=== PATIENT | female | born 1945 | race Caucasian/White ===

== ENCOUNTER 2017-06-18 21:37 | Inpatient (IN) | payer MEDICARE, OTHER ==
[~2017-06-18] VITALS: Ht 160 cm; Wt 67.7 kg
[2017-06-18 23:00] LABS: ABNORMAL IP MESSAGE 1; HEMATOCRIT 33.9 % (37.0-47.0); HEMOGLOBIN 10.4 g/dl (12.0-16.0); MEAN CORPUSCULAR HEMOGLOBIN 23.8 pg (29.0-33.0); MEAN CORPUSCULAR HGB CONC 30.7 g/dl (32.0-37.0); MEAN CORPUSCULAR VOLUME 77.6 fl (82.0-101.0); PLATELET COUNT 301 10^3/UL (140-415); RED BLOOD COUNT 4.37 10^6/ul (4.20-5.40); RED CELL DISTRIBUTION WIDTH 19.8 % (11.5-14.5); WHITE BLOOD COUNT 17.2 10^3/ul (4.8-10.8)
[2017-06-18 23:21] LABS: INR 1.88; PROTIME 21.8 Sec (12.2-14.2); PT RATIO 1.7
[2017-06-18 23:22] LABS: PARTIAL THROMBOPLASTIN TIME 30.9 Sec (25.0-35.0)
[2017-06-18 23:24] LABS: ALBUMIN 3.6 g/dl (3.3-4.9); ALBUMIN/GLOBULIN RATIO 1.02; CALCIUM 8.5 mg/dl (8.4-10.2); CREATININE 0.48 mg/dl (0.44-1.00); POTASSIUM 3.6 mmol/L (3.5-5.1); TOTAL PROTEIN 7.1 g/dl (6.1-8.1)
[2017-06-18 23:36] LABS: TROPONIN-I 0.039 ng/ml (0.00-0.12)
[2017-06-18 23:38] LABS: AADO2 Arterial 148.5 mmHg (7.0-24.0); Allen Test ACCEPTAB; Arterial Base Excess 6.5 mmol/L (-3.0-3); Arterial COHb 0.3 % (0.0-3.0); Arterial Fraction of Oxyhgb 98.2 % (93.0-99.0); Arterial MetHb 0.5 % (0.0-1.5); Arterial Total Hemglobin 11.3 g/dl (12.0-18.0); Blood Gas IEPAP 20/5; MODE MASK - BIPAP
[2017-06-19] VITALS (21 sets, daily range): BP systolic 115–198; BP diastolic 52–88; PULSE 86–101; RESP 16–21; TEMP 98.9; Ht 160 cm; Wt 67.7 kg
--- NOTE | 2017-06-19 00:14 | RADRPT ---
PROCEDURE: XR Chest. CLINICAL INDICATION: Shortness of breath. TECHNIQUE: Portable AP upright view of the chest was obtained. COMPARISON: None available. FINDINGS: The cardiomediastinal silhouette is within upper normal limits. Elevation of the right hemidiaphrag m is present with mild prominence of the pulmonary interstitium throughout likely chronic interstiti al change. There is no evidence of focal alveolar infiltrate. There is no evidence for pleural eff usion, pneumothorax or pulmonary vascular congestion. Diffuse demineralization is seen without evid ence of acute osseous abnormality. Calcification is visible within the aorta RPTAT:HJJR IMPRESSION: 1. Chronic appearing diffuse interstitial changes of the lung parenchyma with some elevation of the right hemidiaphragm. 2. Aortic atherosclerosis is present. Physician Fede Date Time Electronically viewed and signed by Physician Fede on 06/19/2017 00:14 JR/
[2017-06-19] MEDS ORDERED: ACETAMINOPHEN 500 MG TAB PO STA (00:59)
[2017-06-19 01:43] LABS: ANISOCYTOSIS 1+ (0-0); EOSINOPHILS # 0.2 10^3/ul (0.0-0.5); EOSINOPHILS % (M) 1 % (0.0-7.0); LYMPHOCYTES # 0.5 10^3/ul (0.8-2.9); MONOCYTE # 0.2 10^3/ul (0.3-0.9); MONOCYTES % (M) 1 % (0-11)
--- NOTE | 2017-06-19 03:20 | ERA ---
ER Documentation Chief Complaint Date/Time DATE: 06/19/17 TIME: 03:16 Chief Complaint from facility, SOB, rhonchi, febrile, tachy cardic HPI This is a 71-year-old female brought in from custodial facility shortness breath rhonchi and fever. Patient is poor historian at baseline. History per [facility]. History of chronic respiratory failure ROS All systems reviewed and are negative except as per history of present illness. PMhx/Soc History of Surgery: Yes Hx Neurological Disorder: Yes (CVA) Hx Respiratory Disorders: Yes (Chronic Resp Failure) Hx Cardiac Disorders: Yes Hx Psychiatric Problems: No Hx Miscellaneous Medical Probl: Yes Hx Alcohol Use: No Hx Substance Use: No Hx Tobacco Use: No Smoking Status: Never smoker Physical Exam Vitals Vital Signs Date Time Temp Pulse Resp B/P Pulse Ox O2 Delivery O2 Flow Rate FiO2 06/19/17 02:29 98.9 98 16 136/66 100 BIPAP 06/19/17 01:10 102 100 40 06/19/17 00:30 101.0 102 18 141/62 100 BIPAP 06/18/17 23:42 107 100 50 06/18/17 22:49 112 100 50 06/18/17 22:32 Non Rebreather 15 06/18/17 22:32 Non Rebreather 15.0 06/18/17 22:21 100.3 121 19 200/98 95 Physical Exam Const: [] Head: Atraumatic Eyes: Normal Conjunctiva ENT: Normal External Ears, Nose and Mouth. Neck: Full range of motion..~ No meningismus. Resp: Clear to auscultation bilaterally Cardio: Regular rate and rhythm, no murmurs Abd: Soft, non tender, non distended. Normal bowel sounds Skin: No petechiae or rashes Back: No midline or flank tenderness Ext: No cyanosis, or edema Neur: Awake and alert Psych: Normal Mood and Affect Result Diagram: 06/18/17221906/18/172219 Results 24 hrs Laboratory Tests Test 06/18/17 22:20 06/18/17 22:36 06/19/17 00:35 White Blood Count 17.210^3/ul Red Blood Count 4.3710^6/ul Hemoglobin 10.4g/dl Hematocrit 33.9% Mean Corpuscular Volume 77.6fl Mean Corpuscular Hemoglobin 23.8pg Mean Corpuscular Hemoglobin Concent 30.7g/dl Red Cell Distribution Width 19.8% Platelet Count 70308^3/UL Mean Platelet Volume 12.0fl Neutrophils % % Segmented Neutrophils % (Manual) 73% Band Neutrophils % (Manual) 22% Lymphocytes % % Lymphocytes % (Manual) 3% Monocytes % % Monocytes % (Manual) 1% Eosinophils % % Eosinophils % (Manual) 1% Basophils % % Nucleated Red Blood Cells % 0.0/100WBC Neutrophils # (Manual) 13.210^3/ul Band Neutrophils # 3.710^3/ul Absolute Lymphocytes (Manual) 0.510^3/ul Lymphocytes # 0.510^3/ul Monocytes # 0.210^3/ul Absolute Monocytes (Manual) 0.110^3/ul Eosinophils # 0.210^3/ul Basophils # 10^3/ul Nucleated Red Blood Cells # 10^3/ul Anisocytosis 1+ Prothrombin Time 21.8Sec Prothrombin Time Ratio 1.7 INR International Normalized Ratio 1.88 Activated Partial Thromboplast Time 30.9Sec Sodium Level 137mmol/L Potassium Level 3.6mmol/L Chloride Level 95mmol/L Carbon Dioxide Level 33mmol/L Anion Gap 13 Blood Urea Nitrogen 25mg/dl Creatinine 0.48mg/dl Glucose Level 377mg/dl Lactic Acid Level 1.6mmol/L 1.7mmol/L Calcium Level 8.5mg/dl Total Bilirubin 0.0mg/dl Direct Bilirubin 0.00mg/dl Indirect Bilirubin 0.0mg/dl Aspartate Amino Transf (AST/SGOT) 21IU/L Alanine Aminotransferase (ALT/SGPT) 23IU/L Alkaline Phosphatase 207IU/L Troponin I 0.039ng/ml Total Protein 7.1g/dl Albumin 3.6g/dl Globulin 3.50g/dl Albumin/Globulin Ratio 1.02 Blood Gas Specimen Source Blood arterial Arterial Blood Date Drawn 06/18/2017 11:32:26 PM Arterial Blood pH (Temp corrected) 7.423 Arterial Blood pCO2 (Temp correct) 50.1mmhg Arterial Blood pO2 (Temp corrected) 151.6mmHG Arterial Blood HCO3 32.0mmol/L Arterial Blood Base Excess 6.5mmol/L Arterial Blood Oxygen Saturation 99.0mmHG Girish Test ACCEPTAB Arterial Blood Gas Puncture Site Right Radial Arterial Blood Carboxyhemoglobin 0.3% Arterial Blood Methemoglobin 0.5% Blood Gas A-a O2 Differential 148.5mmHg Oxyhemoglobin Percent 98.2% Total Hemoglobin 11.3g/dl Blood Gas Temperature 37.0C Blood Gas Respiration Rate 16.0 Blood Gas Actual Respiration Rate 20 Blood Gas Modality MASK - BIPAP FiO2 50.0% Blood Gas Inspiratory Time 1.0 Blood Gas IPAP/EPAP Ratio 20/5 Blood Gas Notified Whom BR Blood Gas Notified Time 06/18/2017 11:38:03 PM Current Medications Medications (Trade) Dose Ordered Sig/Leah Route PRN Reason Start Time Stop Time Status Last Admin Dose Admin Acetaminophen (Tylenol Tab) 1,000 mg ONCE STAT PO 06/19/17 00:59 06/19/17 01:00 DC 06/19/17 01:06 Procedures/MDM EKG: Rate/Rhythm: Normal Sinus Rhythm QRS, ST, T-waves: No changes consistent w/ acute ischemia Impression: No evidence of ischemia or arrhythmia Chest X-ray 1V Interpreted by me: Soft Tissue: No acute abnormalities Bones: No acute abnormalities Mediastinum/Cardiac Silhouette/Lungs: No acute abnormalities Medical decision-makin-year-old female with acute on chronic respiratory failure placed on BiPAP. Patient will be admitted to telemetry to hospitalist. Critical Care: Time: 45 minutes Treatments/Evaluations: Close monitoring and treatment of unstable vital signs, cardiorespiratory, and neurologic status, while maintaining tight balance of fluid, respiratory, and cardiac interventions. Departure Diagnosis: Primary Impression: Respiratory failure Qualified Code: J96.20 - Acute on chronic respiratory failure, unspecified whether with hypoxia or hypercapnia Condition: Serious JOE WILSON Jun 19, 2017 03:20
[2017-06-19] MEDS ORDERED: MAGN400O4 GTB (05:41)
[2017-06-19] MEDS ORDERED: ZINC220T GTB (05:41)
[2017-06-19] MEDS ORDERED: TRAM50TA2 GTB ×2 (05:41)
[2017-06-19] MEDS ORDERED: ACET-2047 PO (05:41)
[2017-06-19] MEDS ORDERED: BISA-57 PO (05:41)
[2017-06-19] MEDS ORDERED: CLOP75TA27 GTB (05:41)
[2017-06-19] MEDS ORDERED: CEPH500C GTB (05:41)
[2017-06-19] MEDS ORDERED: IPRA3AMP INHALATION (05:41)
[2017-06-19] MEDS ORDERED: CLON-379 GTB (05:41)
[2017-06-19] MEDS ORDERED: LEVE500S8 GTB (05:41)
[2017-06-19] MEDS ORDERED: LOSA100T47 GTB (05:41)
[2017-06-19] MEDS ORDERED: ASCO500C7 GTB (05:41)
[2017-06-19] MEDS ORDERED: INSU100I27 SQ (05:41)
[2017-06-19] MEDS ORDERED: VANCOMYCIN IV PER PHARMACY XX SCH (06:30)
[2017-06-19] MEDS ORDERED: MAGNESIUM HYDROXIDE 30ML CUP GTB PRN (06:30)
[2017-06-19] MEDS ORDERED: ACETAMINOPHEN 325 MG TAB PO PRN (06:30)
--- NOTE | 2017-06-19 06:40 | HP ---
Date/Time of Note Date/Time of Note DATE: 06/19/17 TIME: 06:26 Assessment/Plan VTE Prophylaxis VTE Prophylaxis Intervention: heparin Lines/Catheters IV Catheter Type (from Nrsg): Saline Lock Assessment/Plan Assessment/Plan 1. Hypercarbic and hypoxic respiratory failure -Continue positive pressure ventilation, bronchodilators, steroid -Pulmonary consult -Repeat ABG 2. Sepsis, secondary to left lower extremity cellulitis -IV antibiotic -Follow-up culture results 3. Hypertensive urgency -Adjust antihypertensives as needed for better blood pressure control 4. History of CVA, patient in vegetative kind of state -Continue medications and supportive care 5. Dysphagia, with G-tube for feeding -Continue tube feeding and medications 6. Diabetes with hyperglycemia -Adjust insulin as needed HPI/ROS Admit Date/Time Admit Date/Time Jun 19, 2017 at 03:12 Hx of Present Illness This is a 8-year-old female with a history of CVA, respiratory failure, hypertension, dysphagia with G-tube for feeding who was sent from SNF for shortness of breath. Patient is nonverbal and does not follow commands and as such information is gathered from chart review and from the ER physician. Patient was placed on BiPAP while she was in the ER. CXR showed Chronic appearing diffuse interstitial changes of the lung parenchyma with some elevation of the right hemidiaphragm. Patient also has erythema of left lower extremity, which is also warm to touch. She presented with BP of 200/98, temp 100.3. Labs shows WBC of 17,000, glucose 377, bicarb 33 and alk phos 207. ABG shows pH of 7.4, PCO2 50, PO2 151 and bicarb of 32 . PMH/Family/Social Past Medical History CVA Hypertension Respiratory failure Diabetes G-tube . Past Surgical History Past Surgical Hx: other (Tracheostomy, G-tube) Social History Alcohol Use: other (Unknown) Smoking Status: Unknown if ever smoked Drug Use: other (Unknown) Exam/Review of Systems Vital Signs Vitals Vital Signs Date Time Temp Pulse Resp B/P Pulse Ox O2 Delivery O2 Flow Rate FiO2 06/19/17 05:19 98.6 94 17 115/56 98 06/19/17 05:18 35 06/19/17 04:15 BIPAP 06/19/17 04:12 4.0 Exam Constitutional: other (Currently on BiPAP. She opens her eyes spontaneously but does not follow command.) Head: atraumatic, normocephalic Respiratory: diminished breath sounds, wheezing Cardiovascular: other (Tachycardic with regular rhythm) Gastrointestinal: other (G-tube in place), soft Extremities: other (Left lower extremity erythema including thigh and bauman, warmth to touch) Labs Result Diagram: 06/18/17221906/18/17 222 Medications Medications Current Medications Acetaminophen (Tylenol Tab) 650 mg Q4 PRN PO PAIN AND OR ELEVATED TEMP; Start 06/19/17 at 06:30; Status UNV Ascorbic Acid (Vitamin C) 500 mg DAILY GTB ; Start 06/19/17 at 09:00; Status UNV Bisacodyl (Dulcolax) 10 mg DAILY PRN PO CONSTIPATION; Start 06/19/17 at 06:30; Status UNV Clonidine (Catapres) 0.1 mg Q6 PRN GTB ELEVATED BLOOD PRESSURE; Start 06/19/17 at 06:30; Status UNV Clopidogrel Bisulfate (plaVIX) 75 mg DAILY GTB ; Start 06/19/17 at 09:00; Status UNV Albuterol/ Ipratropium (Duoneb) 3 ml Q4 PRN HHN SHORTNESS OF BREATH; Start 06/19 at 06:30; Status UNV Levetiracetam (Keppra Liquid) 500 mg BID GTB ; Start 06/19/17 at 09:00; Status UNV Losartan Potassium (Cozaar) 100 mg QHS GTB ; Start 06/19/17 at 21:00; Status UNV Magnesium Hydroxide (Milk Of Mag) 30 ml DAILY PRN GTB CONSTIPATION; Start at 06:30; Status UNV Tramadol HCl (Ultram) 50 mg Q12 GTB ; Start 06/19/17 at 09:00; Status UNV Zinc Sulfate (Zinc Sulfate) 220 mg DAILY GTB ; Start 06/19/17 at 09:00; Status UNV JOE JIMENES MD Jun 19, 2017 06:36
[2017-06-19] MEDS ORDERED: INSULIN ASPART [NOVOLOG] 3 ML PEN SC SCH (07:55)
[2017-06-19] MEDS ORDERED: BISACODYL (EC) 5 MG TAB PO PRN (08:00)
[2017-06-19] MEDS ORDERED: ALBUTEROL/IPRATROPIUM (NEB) 3 ML AMP HHN PRN (09:00)
[2017-06-19] MEDS: LEVALBUTEROL (NEB) 0.63 MG/3 ML AMP HHN SCH ×4 (09:00→20:30)
[2017-06-19] MEDS: CLOPIDOGREL 75 MG TAB GTB SCH (09:02)
[2017-06-19] MEDS: ZINC SULFATE 220 MG CAP GTB SCH (09:02)
[2017-06-19] MEDS: ASCORBIC ACID 500 MG TAB GTB SCH (09:02)
[2017-06-19] MEDS: LEVETIRACETAM (100 MG/ML) 5ML CUP GTB SCH ×2 (09:02→20:32)
[2017-06-19] MEDS: traMADol 50 MG TAB GTB SCH ×2 (09:24→20:32)
[2017-06-19] MEDS ORDERED: VANCOMYCIN 1.25 GM in SOD CHLORIDE 0.9% 250 ML IVPB SCH (09:30)
--- NOTE | 2017-06-19 10:04 | CONS ---
Date/Time of Note Date/Time of Note DATE: 06/19/17 TIME: 09:58 Assessment/Plan Assessment/Plan Additional Assessment/Plan Chest x-ray was reviewed from yesterday which is showing interstitial prominence. BiPAP settings; 20/5, 30% FiO2. Backup rate of 14. ABG was also reviewed which is showing hypercapnia. Assessment and recommendations; 1. Patient admitted with hypercapnic respiratory failure with leukocytosis. Possibly UTI. 2. Advanced dementia. 3. History of hypertension diabetes and seizure disorder. Continue current treatment. Will obtain a urine analysis. Continue BiPAP at current settings. Also obtain follow-up chest x-ray in 24 hours. Prognosis remains poor. Consultation Date/Type/Reason Admit Date/Time Jun 19, 2017 at 03:12 Date of Consultation: Jun 19, 2017 Type of Consultation: Pulmonary Reason for Consultation Pulmonary consultation requested for evaluation of sepsis and hypercapnic respiratory failure. History of presenting illness; patient is a 71-year-old female who was admitted to the hospital yesterday transferred from alf with complaints of appearing to be short of breath. Upon evaluation further workup was done including an ABG which is revealing hypercapnic respiratory failure without any hypoxemia. Chest x-ray also was done which has been read as essentially unremarkable except for presence of interstitial lung disease. The patient however does have significant leukocytosis and has been started on appropriate broad-spectrum antibiotic coverage. Patient apparently has a history of advanced dementia and by the time I saw her the patient was on BiPAP and was unable to give any history by herself whatsoever. History was obtained from medical records. Past medical history; 1. Patient with history of diabetes 2. Hypertension. 3. Seizure disorder. 4. History of prior tracheostomy with subsequent decannulation. Medications; reviewed. Allergies; none. Family history, social history and occupational histories are not available. Patient however resides in a alf facility. Review of systems; unable to be obtained. General exam; elderly woman, on BiPAP. Essentially unresponsive. Currently in no distress. Past Surgical History Past Surgical Hx: other (Tracheostomy, G-tube) Social History Alcohol Use: other (Unknown) Smoking Status: Unknown if ever smoked Drug Use: other (Unknown) Exam/Review of Systems Vital Signs Vitals Vital Signs Date Time Temp Pulse Resp B/P Pulse Ox O2 Delivery O2 Flow Rate FiO2 06/19/17 09:10 97 98 30 06/19/17 08:08 97.7 16 131/61 06/19/17 04:15 BIPAP 06/19/17 04:12 4.0 Exam HEENT exam; supple neck, patient is on full face BiPAP. Pupils are small. There is a dressing applied over prior tracheostomy which is partially closed. Chest exam; diminished breath sounds throughout. S1-S2 audible, no murmurs. Regular rhythm. Abdomen exam; soft, no organomegaly. Bowel sounds are sluggish. Extremity exam; trace peripheral edema. Mild erythema involving right lower extremity. FACILITY SERVICE MANAGER exam; patient remains unresponsive. Results Result Diagram: 06/18/17221906/18/170 Results 24 hrs Laboratory Tests Test 06/18/17 22:20 06/18/17 22:36 06/19/17 00:35 06/19/17 05:59 White Blood Count 17.2 H Red Blood Count 4.37 Hemoglobin 10.4 L Hematocrit 33.9 L Mean Corpuscular Volume 77.6 L Mean Corpuscular Hemoglobin 23.8 L Mean Corpuscular Hemoglobin Concent 30.7 L Red Cell Distribution Width 19.8 H Platelet Count 301 Mean Platelet Volume 12.0 H Neutrophils % Segmented Neutrophils % (Manual) 73 Band Neutrophils % (Manual) 22 H Lymphocytes % Lymphocytes % (Manual) 3 L Monocytes % Monocytes % (Manual) 1 Eosinophils % Eosinophils % (Manual) 1 Basophils % Nucleated Red Blood Cells % 0.0 Neutrophils # (Manual) 13.2 H Band Neutrophils # 3.7 H Absolute Lymphocytes (Manual) 0.5 L Lymphocytes # 0.5 L Monocytes # 0.2 L Absolute Monocytes (Manual) 0.1 L Eosinophils # 0.2 Basophils # Nucleated Red Blood Cells # Anisocytosis 1+ Prothrombin Time 21.8 H Prothrombin Time Ratio 1.7 INR International Normalized Ratio 1.88 Activated Partial Thromboplast Time 30.9 Sodium Level 137 Potassium Level 3.6 Chloride Level 95 L Carbon Dioxide Level 33 H Anion Gap 13 Blood Urea Nitrogen 25 H Creatinine 0.48 Glucose Level 377 H Lactic Acid Level 1.6 1.7 2.2 *H Calcium Level 8.5 Total Bilirubin 0.0 L Direct Bilirubin 0.00 Indirect Bilirubin 0.0 Aspartate Amino Transf (AST/SGOT) 21 Alanine Aminotransferase (ALT/SGPT) 23 Alkaline Phosphatase 207 H Troponin I 0.039 Total Protein 7.1 Albumin 3.6 Globulin 3.50 H Albumin/Globulin Ratio 1.02 Blood Gas Specimen Source Blood arterial Arterial Blood Date Drawn 06/18/2017 11:32:26 PM Arterial Blood pH (Temp corrected) 7.423 Arterial Blood pCO2 (Temp correct) 50.1 H Arterial Blood pO2 (Temp corrected) 151.6 H Arterial Blood HCO3 32.0 H Arterial Blood Base Excess 6.5 H Arterial Blood Oxygen Saturation 99.0 H Girish Test ACCEPTAB Arterial Blood Gas Puncture Site Right Radial Arterial Blood Carboxyhemoglobin 0.3 Arterial Blood Methemoglobin 0.5 Blood Gas A-a O2 Differential 148.5 H Oxyhemoglobin Percent 98.2 Total Hemoglobin 11.3 L Blood Gas Temperature 37.0 Blood Gas Respiration Rate 16.0 Blood Gas Actual Respiration Rate 20 Blood Gas Modality MASK - BIPAP FiO2 50.0 Blood Gas Inspiratory Time 1.0 Blood Gas IPAP/EPAP Ratio 20/5 Blood Gas Notified Whom BR Blood Gas Notified Time 06/18/2017 11:38:03 PM Test 06/19/17 08:18 Bedside Glucose 340 H Medications Medications Current Medications Acetaminophen (Tylenol Tab) 650 mg Q4 PRN PO PAIN AND OR ELEVATED TEMP; Start 06/19/17 at 06:30 Ascorbic Acid (Vitamin C) 500 mg DAILY GTB Last administered on 06/19/17 09:02 ; Admin Dose 500 MG; Start 06/19/17 at 09:00 Bisacodyl (Dulcolax) 10 mg DAILY PRN PO CONSTIPATION; Start 06/19/17 at 08:00 Clonidine (Catapres) 0.1 mg Q6H PRN GTB SBP ABOVE 160; Start 06/19/17 at 06:30 Clopidogrel Bisulfate (plaVIX) 75 mg DAILY GTB Last administered on 06/19/17 09 :02; Admin Dose 75 MG; Start 06/19/17 at 09:00 Levetiracetam (Keppra Liquid) 500 mg BID GTB Last administered on 06/19/17 09: 02; Admin Dose 500 MG; Start 06/19/17 at 09:00 Losartan Potassium (Cozaar) 100 mg QHS GTB ; Start 06/19/17 at 21:00 Magnesium Hydroxide (Milk Of Mag) 30 ml DAILY PRN GTB CONSTIPATION; Start at 06:30 Tramadol HCl (Ultram) 50 mg Q12 GTB Last administered on 06/19/17 09:24; Admin Dose 50 MG; Start 06/19/17 at 09:00 Zinc Sulfate (Zinc Sulfate) 220 mg DAILY GTB Last administered on 06/19/17 09: 02; Admin Dose 220 MG; Start 06/19/17 at 09:00 Diagnostic Test (Pha) (Accu-Chek) 1 ea 02 XX ; Start 06/20/17 at 02:00 Diagnostic Test (Pha) (Accu-Chek) 1 ea 02 XX ; Start 06/20/17 at 02:00 Insulin Aspart NOVOLOG *MODERATE* ALGORI... Q6 SC ; Start 06/19/17 at 08:00 Vancomycin HCl/ Sodium Chloride (Vancocin/NS) 250 ml @ 83.333 mls/ hr 0930 IVPB ; Start 06/19/17 at 09:30; Stop 06/19/17 at 16:00 ADRIANA TOVAR Jun 19, 2017 10:04
[2017-06-19] MEDS: INSULIN DETEMIR [LEVEMIR] 3ML CART SC SCH (10:51)
[2017-06-19] MEDS: INSULIN ASPART [NOVOLOG] 3 ML PEN SC SCH ×6 (10:52→17:51)
[2017-06-19 14:58] LABS: ADD UMIC YES; UR ASCORBIC ACID 40 mg/dL (NEGATIVE); UR BACTERIA FEW /HPF (NONE SEEN); UR BILIRUBIN (Dip) NEGATIVE (NEGATIVE); UR BLOOD (Dip) 1+ mg/dL (NEGATIVE); UR BUDDING YEAST MANY /HPF (NONE SEEN); UR CLARITY CLOUDY (CLEAR); UR COLOR YELLOW (YELLOW); UR GLUCOSE (Dip) 3+ mg/dL (NEGATIVE); UR KETONES (Dip) NEGATIVE (NEGATIVE); UR LEUKOCYTE ESTERASE (Dip) 3+ Leu/ul (NEGATIVE); UR NITRITE (Dip) NEGATIVE (NEGATIVE); UR NONSQUAMOUS EPITHELIAL CELL 2 /HPF (NONE SEEN); UR RBC 112 /HPF (0-5); UR SPECIFIC GRAVITY (Dip) 1.023 (1.003-1.030); UR TOTAL PROTEIN (Dip) 2+ mg/dl (NEGATIVE); UR UROBILINOGEN (Dip) NEGATIVE (NEGATIVE); UR WBC CLUMPS MANY /HPF (NONE SEEN)
[2017-06-19] MEDS ORDERED: PENDING SANTYL ORDER FOR WOUND CARE XX PRN (16:00)
[2017-06-19] MEDS: VANCOMYCIN 500MG/NS (PMX) 100 ML IVPB SCH (18:12)
[2017-06-19] MEDS: LOSARTAN 50 MG TAB GTB SCH (20:35)
[2017-06-20] VITALS (22 sets, daily range): BP systolic 125–153; BP diastolic 58–70; PULSE 81–95; RESP 16–20
[2017-06-20] MEDS: LEVALBUTEROL (NEB) 0.63 MG/3 ML AMP HHN SCH ×6 (01:39→21:56)
[2017-06-20] MEDS: ACCU-CHEK XX SCH (02:00)
[2017-06-20] MEDS ORDERED: ACCU-CHEK XX SCH ×2 (02:00)
[2017-06-20] MEDS: INSULIN ASPART [NOVOLOG] 3 ML PEN SC SCH ×6 (02:01→18:08)
[2017-06-20] MEDS ORDERED: GLUCAGON 1 MG INJ IM PRN (03:00)
[2017-06-20] MEDS ORDERED: GLUCOSE GEL 15 GRAM TUBE BUCCAL PRN (03:00)
[2017-06-20] MEDS ORDERED: DEXTROSE 50% 50 ML SYRINGE IV PRN ×2 (03:00)
[2017-06-20] MEDS ORDERED: GLUCOSE GEL 15 GRAM TUBE PO PRN ×2 (03:00)
[2017-06-20] MEDS ORDERED: ONDANSETRON 4 MG INJ IV PRN (05:00)
[2017-06-20] MEDS ORDERED: COLLAGENASE 30 GM TUBE TOP PRN (05:00)
[2017-06-20] MEDS: VANCOMYCIN 500MG/NS (PMX) 100 ML IVPB SCH ×2 (05:18→18:02)
[2017-06-20] MEDS: COLLAGENASE 30 GM TUBE TOP SCH ×2 (06:00→20:36)
[2017-06-20] MEDS ORDERED: INSULIN ASPART [NOVOLOG] 3 ML PEN SC SCH (06:00)
[2017-06-20 07:52] LABS: HEMATOCRIT 30.5 % (37.0-47.0); HEMOGLOBIN 9.2 g/dl (12.0-16.0); MEAN CORPUSCULAR HEMOGLOBIN 23.6 pg (29.0-33.0); MEAN CORPUSCULAR HGB CONC 30.2 g/dl (32.0-37.0); MEAN CORPUSCULAR VOLUME 78.2 fl (82.0-101.0); MEAN PLATELET VOLUME 11.8 fl (7.4-10.4); PLATELET COUNT 268 10^3/UL (140-415); RED CELL DISTRIBUTION WIDTH 19.5 % (11.5-14.5); WHITE BLOOD COUNT 8.7 10^3/ul (4.8-10.8)
[2017-06-20 08:16] LABS: ALBUMIN 3.2 g/dl (3.3-4.9); CREATININE 0.44 mg/dl (0.44-1.00); POTASSIUM 3.6 mmol/L (3.5-5.1); TOTAL PROTEIN 6.4 g/dl (6.1-8.1)
--- NOTE | 2017-06-20 08:24 | RADRPT ---
PROCEDURE: XR Chest. CLINICAL INDICATION: sepsis TECHNIQUE: Single frontal view of the chest was obtained. COMPARISON: Chest x-ray from 06/18/2017 FINDINGS: There are stable low lung volumes. There is mild cardiomegaly. There is stable mild prominence of interstitial markings, possibly due to a combination of vascular crowding and chronic / senescent changes.. There is no significant pleural effusion or pneumothorax. IMPRESSION: No significant interval change. RPTAT: EE Physician Jonah Date Time Electronically viewed and signed by Kendall Garcia Physician on 06/20/2017 08:24 RA/
[2017-06-20] MEDS: ZINC SULFATE 220 MG CAP GTB SCH (09:18)
[2017-06-20] MEDS: CLOPIDOGREL 75 MG TAB GTB SCH (09:18)
[2017-06-20] MEDS: ASCORBIC ACID 500 MG TAB GTB SCH (09:19)
[2017-06-20] MEDS: traMADol 50 MG TAB GTB SCH ×2 (09:19→20:34)
[2017-06-20] MEDS: LEVETIRACETAM (100 MG/ML) 5ML CUP GTB SCH ×2 (09:19→20:34)
[2017-06-20] MEDS: INSULIN DETEMIR [LEVEMIR] 3ML CART SC SCH (09:37)
[2017-06-20] MEDS: MUPIROCIN 2% 22 GM OINT TOP SCH ×2 (11:18→20:35)
--- NOTE | 2017-06-20 11:36 | PN ---
Date/Time of Note Date/Time of Note DATE: 06/20/17 TIME: 11:34 Assessment/Plan VTE Prophylaxis VTE Prophylaxis Intervention: LMWH Lines/Catheters IV Catheter Type (from [facility]): Saline Lock Urinary Cath still in place: Yes Reason Cath still needed: other (indicate) (vegetative) Assessment/Plan Assessment/Plan 1. Hypercarbic and hypoxic respiratory failure: remains on bipap for now per pulm 2. Sepsis 2/2 bacteremia, UTI, charlette cellulitis: ?improving 3. Staph bacteremia 4. Multiorganism UTI 5. Charlette LE Cellulitis 6. Hypertensive urgency: improved but still with suboptimal control 7. History of CVA, patient in vegetative kind of state with a hx advanced dementia 8. Dysphagia, with G-tube for feeding 9. Diabetes with hyperglycemia, A1C 9.0 10. Seizure disorder. 11. History of prior tracheostomy with subsequent decannulation. PLAN: Continue bipap / planned for NC trial tomorrow / Add low dose lasix Continue abx Palliative care consult Iron replacement therapy Increase Lantus and add metformin Continue all other supportive care Appreciate all consults Prophylaxis : Subjective 24 Hr Interval Summary Free Text/Dictation spoke at [facility] with Patient has been non verbal and bedbound since CVA about 1 1/2 yrs ago Subjective hx not possible: pt non-verbal Exam/Review of Systems Vital Signs Vitals Vital Signs Date Time Temp Pulse Resp B/P Pulse Ox O2 Delivery O2 Flow Rate FiO2 06/20/17 09:15 93 98 30 06/20/17 07:10 20 06/20/17 06:52 99.0 143/63 06/19/17 04:15 BIPAP 06/19/17 04:12 4.0 Intake and Output 06/19/17 06/19/17 06/20/17 14:59 22:59 06:59 Intake Total 250 ml 1250 ml 1375 ml Output Total 200 ml 750 ml Balance 250 ml 1050 ml 625 ml Exam Constitutional: other (Currently on BiPAP. She opens her eyes spontaneously but does not follow command.) Head: atraumatic, normocephalic Respiratory: diminished breath sounds, wheezing Cardiovascular: other (Tachycardic with regular rhythm) Gastrointestinal: other (G-tube in place), soft Extremities: other (Left lower extremity erythema including thigh and bauman, warmth to touch) Results Result Diagram: 06/20/17 0713 06/20/17 0713 Results 24 hrs Laboratory Tests Test 06/19/17 12:00 06/19/17 14:48 06/19/17 17:48 06/20/17 01:46 Urine Color YELLOW Urine Clarity CLOUDY A Urine pH 6.0 Urine Specific Clune 1.023 Urine Ketones NEGATIVE Urine Nitrite NEGATIVE Urine Bilirubin NEGATIVE Urine Urobilinogen NEGATIVE Urine Leukocyte Esterase 3+ H Urine Microscopic RBC 112 H Urine Microscopic WBC > 182 H Urine Bacteria FEW A Urine Yeast (Budding) MANY A Urine Hemoglobin 1+ H Urine Glucose 3+ H Urine Total Protein 2+ H Bedside Glucose 290 H 365 H 303 H Test 06/20/17 05:11 06/20/17 07:13 06/20/17 09:34 Bedside Glucose 294 H 202 White Blood Count 8.7 # Red Blood Count 3.90 L Hemoglobin 9.2 L Hematocrit 30.5 L Mean Corpuscular Volume 78.2 L Mean Corpuscular Hemoglobin 23.6 L Mean Corpuscular Hemoglobin Concent 30.2 L Red Cell Distribution Width 19.5 H Platelet Count 268 Mean Platelet Volume 11.8 H Neutrophils % Lymphocytes % Monocytes % Eosinophils % Basophils % Nucleated Red Blood Cells % 0.0 Neutrophils # (Manual) 6.3 Lymphocytes # Monocytes # Eosinophils # Basophils # Nucleated Red Blood Cells # Sodium Level 138 Potassium Level 3.6 Chloride Level 94 L Carbon Dioxide Level 38 H Anion Gap 10 Blood Urea Nitrogen 26 H Creatinine 0.44 Glucose Level 229 #H Calcium Level 9.0 Total Bilirubin 0.0 L Direct Bilirubin 0.00 Indirect Bilirubin 0.0 Aspartate Amino Transf (AST/SGOT) 17 Alanine Aminotransferase (ALT/SGPT) 25 Alkaline Phosphatase 167 H Total Protein 6.4 Albumin 3.2 L Globulin 3.20 Albumin/Globulin Ratio 1.00 Medications Medications Current Medications Acetaminophen (Tylenol Tab) 650 mg Q4 PRN PO PAIN AND OR ELEVATED TEMP; Start 06/19/17 at 06:30 Ascorbic Acid (Vitamin C) 500 mg DAILY GTB Last administered on 06/20/17t 09:19 ; Admin Dose 500 MG; Start 06/19/17 at 09:00 Bisacodyl (Dulcolax) 10 mg DAILY PRN PO CONSTIPATION; Start 06/19/17 at 08:00 Clonidine (Catapres) 0.1 mg Q6H PRN GTB SBP ABOVE 160; Start 06/19/17 at 06:30 Clopidogrel Bisulfate (plaVIX) 75 mg DAILY GTB Last administered on 06/20/17 09 :18; Admin Dose 75 MG; Start 06/19/17 at 09:00 Levetiracetam (Keppra Liquid) 500 mg BID GTB Last administered on 06/20/17 09: 19; Admin Dose 500 MG; Start 06/19/17 at 09:00 Losartan Potassium (Cozaar) 100 mg QHS GTB Last administered on 06/19/17 20:35 ; Admin Dose 100 MG; Start 06/19/17 at 21:00 Magnesium Hydroxide (Milk Of Mag) 30 ml DAILY PRN GTB CONSTIPATION; Start at 06:30 Tramadol HCl (Ultram) 50 mg Q12 GTB Last administered on 06/20/17 09:19; Admin Dose 50 MG; Start 06/19/17 at 09:00 Zinc Sulfate (Zinc Sulfate) 220 mg DAILY GTB Last administered on 06/20/17 09: 18; Admin Dose 220 MG; Start 06/19/17 at 09:00 Diagnostic Test (Pha) (Accu-Chek) 1 ea 02 XX ; Start 06/20/17 at 02:00 Diagnostic Test (Pha) (Accu-Chek) 1 ea 02 XX ; Start 06/20/17 at 02:00 Insulin Aspart NOVOLOG *MODERATE* ALGORI... Q6 SC Last administered on 05:20; Admin Dose 8 UNIT; Start 06/19/17 at 08:00 Vancomycin HCl (Vancocin) 100 ml @ 100 mls/hr Q12H IVPB Last administered on 05:18; Admin Dose 100 MLS/HR; Start 06/19/17 at 18:00 Miscellaneous Information (Pending Santyl Order For Wound Care) This patient valenzuela... PRN PRN XX WOUND CARE; Start 06/19/17 at 16:00 Miscellaneous Information 1 ea NOTE XX ; Start 06/20/17 at 03:00 Glucose (Glutose) 15 gm Q15M PRN PO DECREASED GLUCOSE; Start 06/20/17 at 03:00 Glucose (Glutose) 22.5 gm Q15M PRN PO DECREASED GLUCOSE; Start 06/20/17 at 03:00 Dextrose (D50w Syringe) 25 ml Q15M PRN IV DECREASED GLUCOSE; Start 06/20/17 at 03:00 Dextrose (D50w Syringe) 50 ml Q15M PRN IV DECREASED GLUCOSE; Start 06/20/17 at 03:00 Glucagon (Glucagen) 1 mg Q15M PRN IM DECREASED GLUCOSE; Start 06/20/17 at 03:00 Glucose (Glutose) 15 gm Q15M PRN BUCCAL DECREASED GLUCOSE; Start 06/20/17 at 03: 00 Ondansetron HCl (Zofran Inj) 4 mg Q6H PRN IV NAUSEA AND/OR VOMITING; Start 06/20 at 05:00 Collagenase (Santyl) 1 applic Q12 TOP ; Start 06/20/17 at 06:00 Collagenase (Santyl) 1 applic PRN PRN TOP PRN; Start 06/20/17 at 05:00 Mupirocin (Bactroban) 1 applic BID TOP Last administered on 06/20/17t 11:18; Admin Dose 1 APPLIC; Start 06/20/17 at 12:00 Miscellaneous Information 1 ONCE ONCE XX ; Start 06/20/17 at 17:00; Stop at 17:01 Fluconazole 100 ml @ 100 mls/hr Q24H IVPB ; Start 06/20/17 at 11:30; Status UNV Levofloxacin/ Dextrose (Levaquin 750 Mg/ D5W 150 ml (Pmx)) 150 ml @ 100 mls/hr Q24H IVPB ; Start 06/20/17 at 11:30; Status UNV Procedures Procedures PROCEDURE: XR Chest. CLINICAL INDICATION: sepsis TECHNIQUE: Single frontal view of the chest was obtained. COMPARISON: Chest x-ray from 06/18/2017 FINDINGS: There are stable low lung volumes. There is mild cardiomegaly. There is stable mild prominence of interstitial markings, possibly due to a combination of vascular crowding and chronic / senescent changes.. There is no significant pleural effusion or pneumothorax. IMPRESSION: No significant interval change. RPTAT: EE Kendall Garcia Physician Date Time Electronically viewed and signed by Kendall Jose, Physician on 06/20/2017 08:24 RA/ CC: ADRIANA TOVAR BOLATITO M. Jun 20, 2017 11:36
--- NOTE | 2017-06-20 12:17 | CONS ---
Date/Time of Note Date/Time of Note DATE: 06/20/17 TIME: 12:14 Assessment/Plan Assessment/Plan Additional Assessment/Plan Chest x-ray was reviewed from today which is essentially unremarkable. Assessment and recommendations; 1. Patient admitted with hypercapnic respiratory failure currently on BiPAP. 2. Advanced dementia. Continue current treatment. Obtain an ABG. Once ABG is done I will review it and make further recommendations. Consultation Date/Type/Reason Admit Date/Time Jun 19, 2017 at 03:12 Initial Consult Date 06/19/17 Type of Consultation: Pulmonary 24 HR Interval Summary Free Text/Dictation Patient's condition remains tenuous at best. Still requiring BiPAP. Due to advanced dementia patient remains essentially unresponsive. Exam/Review of Systems Vital Signs Vitals Vital Signs Date Time Temp Pulse Resp B/P Pulse Ox O2 Delivery O2 Flow Rate FiO2 06/20/17 11:38 98.0 90 18 137/70 99 06/20/17 11:05 30 06/19/17 04:15 BIPAP 06/19/17 04:12 4.0 Intake and Output 06/19/17 06/19/17 06/20/17 15:00 23:00 07:00 Intake Total 250 ml 1250 ml 1375 ml Output Total 200 ml 750 ml Balance 250 ml 1050 ml 625 ml Exam HEENT exam; supple neck, positive JVD. No lymphadenopathy. Patient currently on full face BiPAP. Chest exam; diminished breath sounds throughout. No added sound. S1-S2 audible , no murmurs. Abdomen exam; soft, no organomegaly. Bowel sounds audible. Extremity exam; trace edema. 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 Results Result Diagram: 06/20/17 0713 06/20/17 0713 Results 24 hrs Laboratory Tests Test 06/19/17 14:48 06/19/17 17:48 06/20/17 01:46 06/20/17 05:11 Bedside Glucose 290 H 365 H 303 H 294 H Test 06/20/17 07:13 06/20/17 09:34 White Blood Count 8.7 # Red Blood Count 3.90 L Hemoglobin 9.2 L Hematocrit 30.5 L Mean Corpuscular Volume 78.2 L Mean Corpuscular Hemoglobin 23.6 L Mean Corpuscular Hemoglobin Concent 30.2 L Red Cell Distribution Width 19.5 H Platelet Count 268 Mean Platelet Volume 11.8 H Neutrophils % Lymphocytes % Monocytes % Eosinophils % Basophils % Nucleated Red Blood Cells % 0.0 Neutrophils # (Manual) 6.3 Lymphocytes # Monocytes # Eosinophils # Basophils # Nucleated Red Blood Cells # Sodium Level 138 Potassium Level 3.6 Chloride Level 94 L Carbon Dioxide Level 38 H Anion Gap 10 Blood Urea Nitrogen 26 H Creatinine 0.44 Glucose Level 229 #H Calcium Level 9.0 Total Bilirubin 0.0 L Direct Bilirubin 0.00 Indirect Bilirubin 0.0 Aspartate Amino Transf (AST/SGOT) 17 Alanine Aminotransferase (ALT/SGPT) 25 Alkaline Phosphatase 167 H Total Protein 6.4 Albumin 3.2 L Globulin 3.20 Albumin/Globulin Ratio 1.00 Bedside Glucose 202 Medications Medications Current Medications Acetaminophen (Tylenol Tab) 650 mg Q4 PRN PO PAIN AND OR ELEVATED TEMP; Start 06/19/17 at 06:30 Ascorbic Acid (Vitamin C) 500 mg DAILY GTB Last administered on 06/20/17 09:19 ; Admin Dose 500 MG; Start 06/19/17 at 09:00 Bisacodyl (Dulcolax) 10 mg DAILY PRN PO CONSTIPATION; Start 06/19/17 at 08:00 Clonidine (Catapres) 0.1 mg Q6H PRN GTB SBP ABOVE 160; Start 06/19/17 at 06:30 Clopidogrel Bisulfate (plaVIX) 75 mg DAILY GTB Last administered on 06/20/17 09 :18; Admin Dose 75 MG; Start 06/19/17 at 09:00 Levetiracetam (Keppra Liquid) 500 mg BID GTB Last administered on 06/20/17 09: 19; Admin Dose 500 MG; Start 06/19/17 at 09:00 Losartan Potassium (Cozaar) 100 mg QHS GTB Last administered on 06/19/17 20:35 ; Admin Dose 100 MG; Start 06/19/17 at 21:00 Magnesium Hydroxide (Milk Of Mag) 30 ml DAILY PRN GTB CONSTIPATION; Start at 06:30 Tramadol HCl (Ultram) 50 mg Q12 GTB Last administered on 06/20/17 09:19; Admin Dose 50 MG; Start 06/19/17 at 09:00 Zinc Sulfate (Zinc Sulfate) 220 mg DAILY GTB Last administered on 06/20/17 09: 18; Admin Dose 220 MG; Start 06/19/17 at 09:00 Diagnostic Test (Pha) (Accu-Chek) 1 ea 02 XX ; Start 06/20/17 at 02:00 Insulin Aspart NOVOLOG *MODERATE* ALGORI... Q6 SC Last administered on 05:20; Admin Dose 8 UNIT; Start 06/19/17 at 08:00 Vancomycin HCl (Vancocin) 100 ml @ 100 mls/hr Q12H IVPB Last administered on 05:18; Admin Dose 100 MLS/HR; Start 06/19/17 at 18:00 Miscellaneous Information (Pending Santyl Order For Wound Care) This patient valenzuela... PRN PRN XX WOUND CARE; Start 06/19/17 at 16:00 Miscellaneous Information 1 ea NOTE XX ; Start 06/20/17 at 03:00 Glucose (Glutose) 15 gm Q15M PRN PO DECREASED GLUCOSE; Start 06/20/17 at 03:00 Glucose (Glutose) 22.5 gm Q15M PRN PO DECREASED GLUCOSE; Start 06/20/17 at 03:00 Dextrose (D50w Syringe) 25 ml Q15M PRN IV DECREASED GLUCOSE; Start 06/20/17 at 03:00 Dextrose (D50w Syringe) 50 ml Q15M PRN IV DECREASED GLUCOSE; Start 06/20/17 at 03:00 Glucagon (Glucagen) 1 mg Q15M PRN IM DECREASED GLUCOSE; Start 06/20/17 at 03:00 Glucose (Glutose) 15 gm Q15M PRN BUCCAL DECREASED GLUCOSE; Start 06/20/17 at 03: 00 Ondansetron HCl (Zofran Inj) 4 mg Q6H PRN IV NAUSEA AND/OR VOMITING; Start 06/20 at 05:00 Collagenase (Santyl) 1 applic Q12 TOP ; Start 06/20/17 at 06:00 Collagenase (Santyl) 1 applic PRN PRN TOP PRN; Start 06/20/17 at 05:00 Mupirocin (Bactroban) 1 applic BID TOP Last administered on 06/20/17 11:18; Admin Dose 1 APPLIC; Start 06/20/17 at 12:00 Miscellaneous Information 1 ONCE ONCE XX ; Start 06/20/17 at 17:00; Stop at 17:01 Fluconazole 100 ml @ 100 mls/hr Q24H IVPB ; Start 06/20/17 at 11:30 Levofloxacin/ Dextrose 150 ml @ 100 mls/hr Q24H IVPB ; Start 06/20/17 at 11:30 Sodium Chloride (NS) 1,000 ml @ 75 mls/hr [id number] IV ; Start 06/20/17 at 12:00 ADRIANA TOVAR Jun 20, 2017 12:17
[2017-06-20] MEDS: LEVOFLOXACIN 750MG/D5W (PMX) 150 ML IVPB SCH (12:35)
[2017-06-20] MEDS: SOD CHLORIDE 0.9% 1,000 ML IV SCH (12:35)
[2017-06-20 13:18] LABS: AADO2 Arterial 61.1 mmHg (7.0-24.0); Allen Test ACCEPTAB; Arterial Base Excess 8.5 mmol/L (-3.0-3); Arterial COHb 0.3 % (0.0-3.0); Arterial Fraction of Oxyhgb 96.8 % (93.0-99.0); Arterial HCO3 33.5 mmol/L (22.0-26.0); Arterial MetHb 0.3 % (0.0-1.5); Blood Gas IEPAP 20/5; Blood Gas PS 15; MODE MASK - BIPAP
[2017-06-20] MEDS: FLUCONAZOLE 200 MG/NS (PMX) 100 ML IVPB SCH (14:24)
[2017-06-20] MEDS: LOSARTAN 50 MG TAB GTB SCH (20:35)
[2017-06-21] VITALS (26 sets, daily range): BP systolic 123–185; BP diastolic 58–80; PULSE 78–108; RESP 17–26
[2017-06-21] MEDS: INSULIN ASPART [NOVOLOG] 3 ML PEN SC SCH ×6 (00:19→22:21)
[2017-06-21] MEDS: LEVALBUTEROL (NEB) 0.63 MG/3 ML AMP HHN SCH ×6 (01:06→20:00)
[2017-06-21] MEDS: SOD CHLORIDE 0.9% 1,000 ML IV SCH ×2 (01:50→16:22)
[2017-06-21] MEDS: ACCU-CHEK XX SCH (01:51)
[2017-06-21] MEDS: VANCOMYCIN 500MG/NS (PMX) 100 ML IVPB SCH ×2 (05:48→17:35)
[2017-06-21 07:38] LABS: BASOPHILS % 0.3 % (0.0-2.0); EOSINOPHILS # 0.4 10^3/ul (0.0-0.5); EOSINOPHILS % 6.8 % (0.0-7.0); HEMATOCRIT 30.9 % (37.0-47.0); LYMPHOCYTES # 1.5 10^3/ul (0.8-2.9); LYMPHOCYTES % 25.4 % (15.0-51.0); MEAN CORPUSCULAR HEMOGLOBIN 22.7 pg (29.0-33.0); MEAN CORPUSCULAR HGB CONC 29.1 g/dl (32.0-37.0); MEAN PLATELET VOLUME 12.4 fl (7.4-10.4); MONOCYTE # 0.4 10^3/ul (0.3-0.9); MONOCYTES % 6.1 % (0.0-11.0); NEUTROPHILS % 56.5 % (39.0-77.0); PLATELET COUNT 296 10^3/UL (140-415); RED BLOOD COUNT 3.96 10^6/ul (4.20-5.40); RED CELL DISTRIBUTION WIDTH 19.4 % (11.5-14.5); WHITE BLOOD COUNT 5.9 10^3/ul (4.8-10.8)
[2017-06-21 07:56] LABS: IRON 32 ug/dl (35-150)
[2017-06-21 08:06] LABS: TOTAL IRON BINDING CAPACITY 256 ug/dl (241-421)
[2017-06-21 08:19] LABS: CALCIUM 8.9 mg/dl (8.4-10.2); CREATININE 0.43 mg/dl (0.44-1.00); MAGNESIUM 2.4 mg/dl (1.7-2.5); POTASSIUM 3.6 mmol/L (3.5-5.1)
[2017-06-21] MEDS: LEVETIRACETAM (100 MG/ML) 5ML CUP GTB SCH ×2 (08:34→22:17)
[2017-06-21] MEDS: ASCORBIC ACID 500 MG TAB GTB SCH (08:34)
[2017-06-21] MEDS: CLOPIDOGREL 75 MG TAB GTB SCH (08:34)
[2017-06-21] MEDS: ZINC SULFATE 220 MG CAP GTB SCH (08:34)
[2017-06-21] MEDS: MUPIROCIN 2% 22 GM OINT TOP SCH ×2 (08:34→22:16)
[2017-06-21] MEDS: COLLAGENASE 30 GM TUBE TOP SCH ×2 (08:35→22:17)
[2017-06-21] MEDS: INSULIN DETEMIR [LEVEMIR] 3ML CART SC SCH (08:36)
[2017-06-21] MEDS: traMADol 50 MG TAB GTB SCH ×2 (10:48→22:18)
[2017-06-21] MEDS: LEVOFLOXACIN 750MG/D5W (PMX) 150 ML IVPB SCH (12:17)
[2017-06-21] MEDS: FLUCONAZOLE 200 MG/NS (PMX) 100 ML IVPB SCH (12:17)
[2017-06-21] MEDS ORDERED: INSULIN ASPART [NOVOLOG] 3 ML PEN SC SCH (13:00)
--- NOTE | 2017-06-21 14:05 | CONS ---
Date/Time of Note Date/Time of Note DATE: 06/21/17 TIME: 14:02 Assessment/Plan Assessment/Plan Additional Assessment/Plan Patient currently on BiPAP 20/5 at 30% FiO2. Assessment and recommendations; 1. Patient admitted with severe hypercapnic respiratory failure with significant improvement on BiPAP. 2. Advanced dementia. 3. History of seizure disorder. 4. Possibly pneumonia. Decrease BiPAP settings' IPAP has been reduced to 15 with subsequent decrease to 12, the patient will be given a nasal cannula trial in the morning. Consultation Date/Type/Reason Admit Date/Time Jun 19, 2017 at 03:12 Initial Consult Date 06/19/17 Type of Consultation: Pulmonary 24 HR Interval Summary Free Text/Dictation Patient condition remains stable still on BiPAP. Patient is not responsive due to underlying severe dementia but remains awake. General exam; elderly woman, on BiPAP, currently in no distress. Exam/Review of Systems Vital Signs Vitals Vital Signs Date Time Temp Pulse Resp B/P Pulse Ox O2 Delivery O2 Flow Rate FiO2 06/21/17 12:00 85 06/21/17 11:05 99.1 18 174/72 97 06/21/17 05:25 30 06/19/17 04:15 BIPAP 06/19/17 04:12 4.0 Intake and Output 06/20/17 06/20/17 06/21/17 14:59 22:59 06:59 Intake Total 150 ml 1800 ml 2200 ml Output Total 1200 ml 1300 ml Balance 150 ml 600 ml 900 ml Exam HEENT exam; supple neck, no JVD. No lymphadenopathy. Midline trachea. No thyromegaly. Patient on full face BiPAP. Chest exam; diminished but clear breath sound. S1-S2 audible, no murmurs. Regular rhythm. Abdomen exam; soft, nontender. No organomegaly. Bowel sounds audible. Extremity exam; no edema. 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 Results Result Diagram: 06/21/17 0645 06/21/17 0645 Results 24 hrs Laboratory Tests Test 06/20/17 16:52 06/20/17 17:59 06/21/17 00:12 06/21/17 05:35 Vancomycin Level Trough 11.4 Bedside Glucose 228 H 255 H 270 H Test 06/21/17 06:45 06/21/17 08:30 06/21/17 12:27 White Blood Count 5.9 # Red Blood Count 3.96 L Hemoglobin 9.0 L Hematocrit 30.9 L Mean Corpuscular Volume 78.0 L Mean Corpuscular Hemoglobin 22.7 L Mean Corpuscular Hemoglobin Concent 29.1 L Red Cell Distribution Width 19.4 H Platelet Count 296 Mean Platelet Volume 12.4 H Neutrophils % 56.5 Lymphocytes % 25.4 Monocytes % 6.1 Eosinophils % 6.8 Basophils % 0.3 Nucleated Red Blood Cells % 0.0 Neutrophils # (Manual) 3.3 Lymphocytes # 1.5 Monocytes # 0.4 Eosinophils # 0.4 Basophils # 0.0 Nucleated Red Blood Cells # 0.0 Sodium Level 142 Potassium Level 3.6 Chloride Level 101 Carbon Dioxide Level 34 H Anion Gap 11 Blood Urea Nitrogen 18 Creatinine 0.43 L Glucose Level 243 H Hemoglobin A1c 9.0 H Calcium Level 8.9 Magnesium Level 2.4 Iron Level 32 L Total Iron Binding Capacity 256 Percent Iron Saturation 13 L Bedside Glucose 193 246 H Medications Medications Current Medications Acetaminophen (Tylenol Tab) 650 mg Q4 PRN PO PAIN AND OR ELEVATED TEMP; Start 06/19/17 at 06:30 Ascorbic Acid (Vitamin C) 500 mg DAILY GTB Last administered on 06/21/17 08:34 ; Admin Dose 500 MG; Start 06/19/17 at 09:00 Bisacodyl (Dulcolax) 10 mg DAILY PRN PO CONSTIPATION; Start 06/19/17 at 08:00 Clonidine (Catapres) 0.1 mg Q6H PRN GTB SBP ABOVE 160; Start 06/19/17 at 06:30 Clopidogrel Bisulfate (plaVIX) 75 mg DAILY GTB Last administered on 06/21/17 08 :34; Admin Dose 75 MG; Start 06/19/17 at 09:00 Levetiracetam (Keppra Liquid) 500 mg BID GTB Last administered on 06/21/17 08: 34; Admin Dose 500 MG; Start 06/19/17 at 09:00 Losartan Potassium (Cozaar) 100 mg QHS GTB Last administered on 06/20/17 20:35 ; Admin Dose 100 MG; Start 06/19/17 at 21:00 Magnesium Hydroxide (Milk Of Mag) 30 ml DAILY PRN GTB CONSTIPATION; Start at 06:30 Tramadol HCl (Ultram) 50 mg Q12 GTB Last administered on 06/21/17 10:48; Admin Dose 50 MG; Start 06/19/17 at 09:00 Zinc Sulfate (Zinc Sulfate) 220 mg DAILY GTB Last administered on 06/21/17 08: 34; Admin Dose 220 MG; Start 06/19/17 at 09:00 Diagnostic Test (Pha) 1 ea 1 ea 02 XX ; Start 06/20/17 at 02:00 Vancomycin HCl (Vancocin) 100 ml @ 100 mls/hr Q12H IVPB Last administered on 05:48; Admin Dose 100 MLS/HR; Start 06/19/17 at 18:00 Miscellaneous Information (Pending Santyl Order For Wound Care) This patient valenzuela... PRN PRN XX WOUND CARE; Start 06/19/17 at 16:00 Miscellaneous Information 1 ea NOTE XX ; Start 06/20/17 at 03:00 Glucose (Glutose) 15 gm Q15M PRN PO DECREASED GLUCOSE; Start 06/20/17 at 03:00 Glucose (Glutose) 22.5 gm Q15M PRN PO DECREASED GLUCOSE; Start 06/20/17 at 03:00 Dextrose (D50w Syringe) 25 ml Q15M PRN IV DECREASED GLUCOSE; Start 06/20/17 at 03:00 Dextrose (D50w Syringe) 50 ml Q15M PRN IV DECREASED GLUCOSE; Start 06/20/17 at 03:00 Glucagon (Glucagen) 1 mg Q15M PRN IM DECREASED GLUCOSE; Start 06/20/17 at 03:00 Glucose (Glutose) 15 gm Q15M PRN BUCCAL DECREASED GLUCOSE; Start 06/20/17 at 03: 00 Ondansetron HCl (Zofran Inj) 4 mg Q6H PRN IV NAUSEA AND/OR VOMITING; Start 06/20 at 05:00 Collagenase (Santyl) 1 applic Q12 TOP Last administered on 06/21/17 08:35; Admin Dose 1 APPLIC; Start 06/20/17 at 06:00 Collagenase (Santyl) 1 applic PRN PRN TOP PRN Last administered on 06/20/17 12: 57; Admin Dose 1 APPLIC; Start 06/20/17 at 05:00 Mupirocin 1 applic 1 applic BID TOP Last administered on 06/21/17 08:34; Admin Dose 1 APPLIC; Start 06/20/17 at 12:00 Fluconazole 100 ml @ 100 mls/hr Q24H IVPB Last administered on 06/21/17 12:17 ; Admin Dose 100 MLS/HR; Start 06/20/17 at 11:30 Levofloxacin/ Dextrose 150 ml @ 100 mls/hr Q24H IVPB Last administered on 12:17; Admin Dose 100 MLS/HR; Start 06/20/17 at 11:30 Sodium Chloride (NS) 1,000 ml @ 75 mls/hr [id number] IV Last administered on 01:50; Admin Dose 75 MLS/HR; Start 06/20/17 at 12:00 Insulin Aspart (Novolog Insulin Pen) NOVOLOG *MILD* ALGORI... Q4 SC Last administered on 06/21/17 12:44; Admin Dose 3 UNIT; Start 06/21/17 at 13:00 ADRIANA TOVAR Jun 21, 2017 14:05
[2017-06-21] MEDS: FUROSEMIDE 20 MG INJ IV SCH (16:37)
[2017-06-21] MEDS: hydrALAzine 20 MG INJ IV PRN (17:33)
[2017-06-21] MEDS: SOD FERRIC GLUC COMPLX 125 MG in SOD CHLORIDE 0.9% 100 ML IVPB SCH (17:36)
[2017-06-21] MEDS: FAMOTIDINE 20 MG INJ IV SCH (22:17)
[2017-06-21] MEDS: metFORMIN 500 MG TAB NGT SCH (22:17)
[2017-06-21] MEDS: METOPROLOL 25 MG TAB PO SCH (22:18)
[2017-06-21] MEDS: LOSARTAN 50 MG TAB GTB SCH (22:19)
[2017-06-22] VITALS (24 sets, daily range): BP systolic 133–185; BP diastolic 62–85; PULSE 76–95; RESP 17–25
[2017-06-22] MEDS: LEVALBUTEROL (NEB) 0.63 MG/3 ML AMP HHN SCH ×6 (00:07→21:08)
[2017-06-22] MEDS: hydrALAzine 20 MG INJ IV PRN (00:50)
[2017-06-22] MEDS: INSULIN ASPART [NOVOLOG] 3 ML PEN SC SCH ×6 (01:03→21:38)
[2017-06-22] MEDS: ACCU-CHEK XX SCH (01:07)
[2017-06-22] MEDS: SOD CHLORIDE 0.9% 1,000 ML IV SCH ×2 (04:00→09:11)
[2017-06-22] MEDS: VANCOMYCIN 500MG/NS (PMX) 100 ML IVPB SCH ×2 (05:35→18:33)
[2017-06-22 08:00] LABS: ABNORMAL IP MESSAGE 1; BASOPHIL # 0.1 10^3/ul (0.0-0.1); BASOPHILS % 0.8 % (0.0-2.0); EOSINOPHILS # 0.4 10^3/ul (0.0-0.5); HEMATOCRIT 33.5 % (37.0-47.0); LYMPHOCYTES # 1.8 10^3/ul (0.8-2.9); LYMPHOCYTES % 24.4 % (15.0-51.0); MEAN CORPUSCULAR HEMOGLOBIN 23.3 pg (29.0-33.0); MEAN CORPUSCULAR HGB CONC 29.9 g/dl (32.0-37.0); MEAN CORPUSCULAR VOLUME 77.9 fl (82.0-101.0); MEAN PLATELET VOLUME 11.6 fl (7.4-10.4); MONOCYTE # 0.5 10^3/ul (0.3-0.9); MONOCYTES % 6.2 % (0.0-11.0); NEUTROPHILS % 55.9 % (39.0-77.0); PLATELET COUNT 348 10^3/UL (140-415); RED CELL DISTRIBUTION WIDTH 19.6 % (11.5-14.5); WHITE BLOOD COUNT 7.6 10^3/ul (4.8-10.8)
[2017-06-22 08:02] LABS: POSITIVE DIFF @See below
[2017-06-22] MEDS: INSULIN GLARGINE [LANtus] 3 ML PEN SC SCH (08:11)
[2017-06-22 08:36] LABS: CALCIUM 9.2 mg/dl (8.4-10.2); CREATININE 0.42 mg/dl (0.44-1.00); POTASSIUM 3.8 mmol/L (3.5-5.1)
[2017-06-22] MEDS: ZINC SULFATE 220 MG CAP GTB SCH (09:04)
[2017-06-22] MEDS: FAMOTIDINE 20 MG INJ IV SCH (09:04)
[2017-06-22] MEDS: ASCORBIC ACID 500 MG TAB GTB SCH (09:04)
[2017-06-22] MEDS: CLOPIDOGREL 75 MG TAB GTB SCH (09:04)
[2017-06-22] MEDS: traMADol 50 MG TAB GTB SCH ×2 (09:05→21:26)
[2017-06-22] MEDS: metFORMIN 500 MG TAB NGT SCH ×2 (09:05→21:26)
[2017-06-22] MEDS: LEVETIRACETAM (100 MG/ML) 5ML CUP GTB SCH ×2 (09:05→21:24)
[2017-06-22] MEDS: FUROSEMIDE 20 MG INJ IV SCH (09:05)
[2017-06-22] MEDS: METOPROLOL 25 MG TAB PO SCH ×2 (09:06→21:25)
[2017-06-22] MEDS: MUPIROCIN 2% 22 GM OINT TOP SCH ×2 (09:11→21:27)
[2017-06-22] MEDS: COLLAGENASE 30 GM TUBE TOP SCH ×2 (09:11→21:27)
[2017-06-22] MEDS: ENOXAPARIN 40 MG/0.4 ML SYG SC SCH (09:20)
[2017-06-22] MEDS ORDERED: VANCOMYCIN IV PER PHARMACY XX SCH (12:00)
--- NOTE | 2017-06-22 12:13 | CONS ---
Date/Time of Note Date/Time of Note DATE: 06/22/17 TIME: 12:11 Assessment/Plan Assessment/Plan Additional Assessment/Plan BiPAP settings; 15/5, 30% FiO2. Assessment and recommendations; 1. Patient admitted with hypercapnic respiratory failure doing fairly well on BiPAP. 2. Advanced dementia. 3. Possibly right lower lobe pneumonia. Continue current treatment. Obtain follow-up chest x-ray. Wean the patient down to nasal cannula as tolerated. Consultation Date/Type/Reason Admit Date/Time Jun 19, 2017 at 03:12 Initial Consult Date 06/19/17 Type of Consultation: Pulmonary 24 HR Interval Summary Free Text/Dictation Patient condition stable. Doing fairly well on BiPAP 15/5 at 30% FiO2. Patient remains noncommunicative due to advanced dementia. General exam; elderly woman, on BiPAP, unresponsive, currently in no distress. Exam/Review of Systems Vital Signs Vitals Vital Signs Date Time Temp Pulse Resp B/P Pulse Ox O2 Delivery O2 Flow Rate FiO2 06/22/17 11:09 98.9 83 18 133/62 100 06/22/17 11:05 30 06/21/17 09:55 3.0 06/19/17 04:15 BIPAP Intake and Output 06/21/17 06/21/17 06/22/17 15:00 23:00 07:00 Intake Total 100 ml 2200 ml Output Total 2500 ml Balance 100 ml -300 ml Exam HEENT exam; supple neck, no JVD. No lymphadenopathy. Midline trachea. Patient is on full face BiPAP. Chest exam; diminished breath sounds bilaterally. S1-S2 audible, no murmurs. Regular rhythm. Abdomen exam; soft, no organomegaly. Bowel sounds audible. Extremity exam; no peripheral edema. 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 Results Result Diagram: 06/22/17 0714 06/22/17 0714 Results 24 hrs Laboratory Tests Test 06/21/17 12:27 06/21/17 16:59 06/21/17 22:15 06/22/17 00:47 Bedside Glucose 246 H 210 264 H 264 H Test 06/22/17 05:28 06/22/17 07:14 06/22/17 09:09 Bedside Glucose 223 H 191 White Blood Count 7.6 # Red Blood Count 4.30 Hemoglobin 10.0 L Hematocrit 33.5 L Mean Corpuscular Volume 77.9 L Mean Corpuscular Hemoglobin 23.3 L Mean Corpuscular Hemoglobin Concent 29.9 L Red Cell Distribution Width 19.6 H Platelet Count 348 Mean Platelet Volume 11.6 H Neutrophils % 55.9 Lymphocytes % 24.4 Monocytes % 6.2 Eosinophils % 5.0 Basophils % 0.8 Nucleated Red Blood Cells % 0.0 Neutrophils # (Manual) 4.2 Lymphocytes # 1.8 Monocytes # 0.5 Eosinophils # 0.4 Basophils # 0.1 Nucleated Red Blood Cells # 0.0 Sodium Level 144 Potassium Level 3.8 Chloride Level 101 Carbon Dioxide Level 33 H Anion Gap 14 Blood Urea Nitrogen 17 Creatinine 0.42 L Glucose Level 200 Calcium Level 9.2 Medications Medications Current Medications Acetaminophen (Tylenol Tab) 650 mg Q4 PRN PO PAIN AND OR ELEVATED TEMP; Start 06/19/17 at 06:30 Ascorbic Acid (Vitamin C) 500 mg DAILY GTB Last administered on 06/22/17 09:04 ; Admin Dose 500 MG; Start 06/19/17 at 09:00 Bisacodyl (Dulcolax) 10 mg DAILY PRN PO CONSTIPATION; Start 06/19/17 at 08:00 Clonidine (Catapres) 0.1 mg Q6H PRN GTB SBP ABOVE 160; Start 06/19/17 at 06:30 Clopidogrel Bisulfate (plaVIX) 75 mg DAILY GTB Last administered on 06/22/17 09 :04; Admin Dose 75 MG; Start 06/19/17 at 09:00 Levetiracetam (Keppra Liquid) 500 mg BID GTB Last administered on 06/22/17 09: 05; Admin Dose 500 MG; Start 06/19/17 at 09:00 Losartan Potassium (Cozaar) 100 mg QHS GTB Last administered on 06/21/17 22:19 ; Admin Dose 100 MG; Start 06/19/17 at 21:00 Magnesium Hydroxide (Milk Of Mag) 30 ml DAILY PRN GTB CONSTIPATION; Start at 06:30 Tramadol HCl (Ultram) 50 mg Q12 GTB Last administered on 06/22/17 09:05; Admin Dose 50 MG; Start 06/19/17 at 09:00 Zinc Sulfate (Zinc Sulfate) 220 mg DAILY GTB Last administered on 9/7/17at 09: 04; Admin Dose 220 MG; Start 06/19/17 at 09:00 Diagnostic Test (Pha) 1 ea 1 ea 02 XX ; Start 06/20/17 at 02:00 Vancomycin HCl (Vancocin) 100 ml @ 100 mls/hr Q12H IVPB Last administered on 05:35; Admin Dose 100 MLS/HR; Start 06/19/17 at 18:00 Miscellaneous Information (Pending Santyl Order For Wound Care) This patient valenzuela... PRN PRN XX WOUND CARE; Start 06/19/17 at 16:00 Miscellaneous Information 1 ea NOTE XX ; Start 06/20/17 at 03:00 Glucose (Glutose) 15 gm Q15M PRN PO DECREASED GLUCOSE; Start 06/20/17 at 03:00 Glucose (Glutose) 22.5 gm Q15M PRN PO DECREASED GLUCOSE; Start 06/20/17 at 03:00 Dextrose (D50w Syringe) 25 ml Q15M PRN IV DECREASED GLUCOSE; Start 06/20/17 at 03:00 Dextrose (D50w Syringe) 50 ml Q15M PRN IV DECREASED GLUCOSE; Start 06/20/17 at 03:00 Glucagon (Glucagen) 1 mg Q15M PRN IM DECREASED GLUCOSE; Start 06/20/17 at 03:00 Glucose (Glutose) 15 gm Q15M PRN BUCCAL DECREASED GLUCOSE; Start 06/20/17 at 03: 00 Ondansetron HCl (Zofran Inj) 4 mg Q6H PRN IV NAUSEA AND/OR VOMITING; Start 06/20 at 05:00 Collagenase (Santyl) 1 applic Q12 TOP Last administered on 06/22/17 09:11; Admin Dose 1 APPLIC; Start 06/20/17 at 06:00 Collagenase (Santyl) 1 applic PRN PRN TOP PRN Last administered on 06/20/17 12: 57; Admin Dose 1 APPLIC; Start 06/20/17 at 05:00 Mupirocin 1 applic 1 applic BID TOP Last administered on 06/22/17 09:11; Admin Dose 1 APPLIC; Start 06/20/17 at 12:00 Fluconazole 100 ml @ 100 mls/hr Q24H IVPB Last administered on 06/21/17 12:17 ; Admin Dose 100 MLS/HR; Start 06/20/17 at 11:30 Sodium Chloride (NS) 1,000 ml @ 75 mls/hr [id number] IV Last administered on 09:11; Admin Dose 75 MLS/HR; Start 06/20/17 at 12:00 Insulin Aspart NOVOLOG *MILD* ALGORI... Q4 SC Last administered on 06/22/17 09: 19; Admin Dose 2 UNIT; Start 06/21/17 at 13:00 Ferric Sodium Gluconate Complex/ Sodium Chloride (Ferrlecit/NS) 110 ml @ 110 mls/hr Q24H IVPB Last administered on 06/21/17 17:36; Admin Dose 110 MLS/HR; Start 06/21/17 at 18:00; Stop 06/25/17 at 18:59 Insulin Glargine (Lantus) 45 unit DAILY@08 SC Last administered on 06/22/17 08: 11; Admin Dose 45 UNIT; Start 06/22/17 at 08:00 Metformin HCl (Glucophage) 500 mg BID NGT Last administered on 06/22/17 09:05; Admin Dose 500 MG; Start 06/21/17 at 21:00 Furosemide (Lasix) 20 mg DAILY IV Last administered on 06/22/17 09:05; Admin Dose 20 MG; Start 06/21/17 at 16:30; Stop 06/23/17 at 16:29 Enoxaparin Sodium (Lovenox) 40 mg DAILY SC Last administered on 06/22/17 09:20 ; Admin Dose 40 MG; Start 06/22/17 at 09:00 Famotidine (Pepcid Iv) 20 mg BID IV Last administered on 06/22/17 09:04; Admin Dose 20 MG; Start 06/21/17 at 21:00 Metoprolol Tartrate (Lopressor) 25 mg BID PO Last administered on 06/22/17 09: 06; Admin Dose 25 MG; Start 06/21/17 at 21:00 Hydralazine HCl (Apresoline) 10 mg Q6H PRN IV sbp.160mmhg Last administered on 06/22/17 00:50; Admin Dose 10 MG; Start 06/21/17 at 16:30 ADRIANA TOVAR Jun 22, 2017 12:13
[2017-06-22] MEDS: FLUCONAZOLE 200 MG/NS (PMX) 100 ML IVPB SCH (12:49)
[2017-06-22] MEDS: LEVOFLOXACIN 750MG/D5W (PMX) 150 ML IVPB SCH (12:56)
[2017-06-22] MEDS: SOD FERRIC GLUC COMPLX 125 MG in SOD CHLORIDE 0.9% 100 ML IVPB SCH (17:17)
[2017-06-22] MEDS: FAMOTIDINE 20 MG TAB GTB SCH (21:24)
[2017-06-22] MEDS: LOSARTAN 50 MG TAB GTB SCH (21:26)
[2017-06-22] MEDS: VORICONAZOLE 200 MG TAB GTB SCH (21:26)
--- NOTE | 2017-06-22 23:46 | PN ---
Date/Time of Note Date/Time of Note DATE: 06/22/17 TIME: 23:43 Assessment/Plan VTE Prophylaxis VTE Prophylaxis Intervention: LMWH Lines/Catheters IV Catheter Type (from Nrs): Peripheral IV Urinary Cath still in place: Yes Reason Cath still needed: terminal illness/intractable pain Assessment/Plan Assessment/Plan 1. Hypercarbic and hypoxic respiratory failure: remains on bipap for now per pulm 2. Sepsis 2/2 bacteremia, UTI, jose cellulitis: ?improving 3. Staph bacteremia 4. Multiorganism UTI 5. Jose LE Cellulitis 6. Hypertensive urgency: improved but still with suboptimal control 7. History of CVA, patient in vegetative kind of state with a hx advanced dementia 8. Dysphagia, with G-tube for feeding 9. Diabetes with hyperglycemia, A1C 9.0 10. Seizure disorder. 11. History of prior tracheostomy with subsequent decannulation. PLAN: Continue bipap. mgmt per pulmonary Continue abx Palliative care consult Iron replacement therapy Adjust insulin as needed Continue supportive care Appreciate all consults Subjective 24 Hr Interval Summary Free Text/Dictation On BIPAP. not following commands Exam/Review of Systems Vital Signs Vitals Vital Signs Date Time Temp Pulse Resp B/P Pulse Ox O2 Delivery O2 Flow Rate FiO2 06/22/17 21:12 84 98 30 06/22/17 19:42 98.7 24 173/74 06/21/17 09:55 3.0 06/19/17 04:15 BIPAP Intake and Output 06/21/17 06/21/17 06/22/17 15:00 23:00 07:00 Intake Total 100 ml 2200 ml Output Total 2500 ml Balance 100 ml -300 ml Exam Constitutional: other (on Bipap) Head: atraumatic, normocephalic Respiratory: diminished breath sounds Cardiovascular: nl pulses, regular rate and rhythm Gastrointestinal: soft Results Result Diagram: 06/22/17 0714 06/22/1714 Results 24 hrs Laboratory Tests Test 06/22/17 00:47 06/22/17 05:28 06/22/17 07:14 06/22/17 09:09 Bedside Glucose 264 H 223 H 191 White Blood Count 7.6 # Red Blood Count 4.30 Hemoglobin 10.0 L Hematocrit 33.5 L Mean Corpuscular Volume 77.9 L Mean Corpuscular Hemoglobin 23.3 L Mean Corpuscular Hemoglobin Concent 29.9 L Red Cell Distribution Width 19.6 H Platelet Count 348 Mean Platelet Volume 11.6 H Neutrophils % 55.9 Lymphocytes % 24.4 Monocytes % 6.2 Eosinophils % 5.0 Basophils % 0.8 Nucleated Red Blood Cells % 0.0 Neutrophils # (Manual) 4.2 Lymphocytes # 1.8 Monocytes # 0.5 Eosinophils # 0.4 Basophils # 0.1 Nucleated Red Blood Cells # 0.0 Sodium Level 144 Potassium Level 3.8 Chloride Level 101 Carbon Dioxide Level 33 H Anion Gap 14 Blood Urea Nitrogen 17 Creatinine 0.42 L Glucose Level 200 Calcium Level 9.2 Test 06/22/17 12:48 06/22/17 17:16 06/22/17 21:23 Bedside Glucose 239 H 185 229 H Medications Medications Current Medications Acetaminophen (Tylenol Tab) 650 mg Q4 PRN PO PAIN AND OR ELEVATED TEMP; Start 06/19/17 at 06:30 Ascorbic Acid (Vitamin C) 500 mg DAILY GTB Last administered on 06/22/17 09:04 ; Admin Dose 500 MG; Start 06/19/17 at 09:00 Bisacodyl (Dulcolax) 10 mg DAILY PRN PO CONSTIPATION; Start 06/19/17 at 08:00 Clonidine (Catapres) 0.1 mg Q6H PRN GTB SBP ABOVE 160; Start 06/19/17 at 06:30 Clopidogrel Bisulfate (plaVIX) 75 mg DAILY GTB Last administered on 06/22/17 09 :04; Admin Dose 75 MG; Start 06/19/17 at 09:00 Levetiracetam (Keppra Liquid) 500 mg BID GTB Last administered on 06/22/17 21: 24; Admin Dose 500 MG; Start 06/19/17 at 09:00 Losartan Potassium (Cozaar) 100 mg QHS GTB Last administered on 06/22/17 21:26 ; Admin Dose 100 MG; Start 06/19/17 at 21:00 Magnesium Hydroxide (Milk Of Mag) 30 ml DAILY PRN GTB CONSTIPATION; Start at 06:30 Tramadol HCl (Ultram) 50 mg Q12 GTB Last administered on 06/22/17 21:26; Admin Dose 50 MG; Start 06/19/17 at 09:00 Zinc Sulfate (Zinc Sulfate) 220 mg DAILY GTB Last administered on 06/22/17 09: 04; Admin Dose 220 MG; Start 06/19/17 at 09:00 Diagnostic Test (Pha) 1 ea 1 ea 02 XX ; Start 06/20/17 at 02:00 Vancomycin HCl (Vancocin) 100 ml @ 100 mls/hr Q12H IVPB Last administered on 18:33; Admin Dose 100 MLS/HR; Start 06/19/17 at 18:00 Miscellaneous Information (Pending Santyl Order For Wound Care) This patient valenzuela... PRN PRN XX WOUND CARE; Start 06/19/17 at 16:00 Miscellaneous Information 1 ea NOTE XX ; Start 06/20/17 at 03:00 Glucose (Glutose) 15 gm Q15M PRN PO DECREASED GLUCOSE; Start 06/20/17 at 03:00 Glucose (Glutose) 22.5 gm Q15M PRN PO DECREASED GLUCOSE; Start 06/20/17 at 03:00 Dextrose (D50w Syringe) 25 ml Q15M PRN IV DECREASED GLUCOSE; Start 06/20/17 at 03:00 Dextrose (D50w Syringe) 50 ml Q15M PRN IV DECREASED GLUCOSE; Start 06/20/17 at 03:00 Glucagon (Glucagen) 1 mg Q15M PRN IM DECREASED GLUCOSE; Start 06/20/17 at 03:00 Glucose (Glutose) 15 gm Q15M PRN BUCCAL DECREASED GLUCOSE; Start 06/20/17 at 03: 00 Ondansetron HCl (Zofran Inj) 4 mg Q6H PRN IV NAUSEA AND/OR VOMITING; Start 06/20 at 05:00 Collagenase (Santyl) 1 applic Q12 TOP Last administered on 06/22/17 21:27; Admin Dose 1 APPLIC; Start 06/20/17 at 06:00 Collagenase (Santyl) 1 applic PRN PRN TOP PRN Last administered on 06/20/17 12: 57; Admin Dose 1 APPLIC; Start 06/20/17 at 05:00 Mupirocin 1 applic 1 applic BID TOP Last administered on 06/22/17 21:27; Admin Dose 1 APPLIC; Start 06/20/17 at 12:00 Sodium Chloride (NS) 1,000 ml @ 75 mls/hr [id number] IV Last administered on 09:11; Admin Dose 75 MLS/HR; Start 06/20/17 at 12:00 Insulin Aspart NOVOLOG *MILD* ALGORI... Q4 SC Last administered on 06/22/17 21: 38; Admin Dose 3 UNIT; Start 06/21/17 at 13:00 Ferric Sodium Gluconate Complex/ Sodium Chloride (Ferrlecit/NS) 110 ml @ 110 mls/hr Q24H IVPB Last administered on 06/22/17 17:17; Admin Dose 110 MLS/HR; Start 06/21/17 at 18:00; Stop 06/25/17 at 18:59 Insulin Glargine (Lantus) 45 unit DAILY@08 SC Last administered on 06/22/17 08: 11; Admin Dose 45 UNIT; Start 06/22/17 at 08:00 Metformin HCl (Glucophage) 500 mg BID NGT Last administered on 06/22/17 21:26; Admin Dose 500 MG; Start 06/21/17 at 21:00 Furosemide (Lasix) 20 mg DAILY IV Last administered on 06/22/17 09:05; Admin Dose 20 MG; Start 06/21/17 at 16:30; Stop 06/23/17 at 16:29 Enoxaparin Sodium (Lovenox) 40 mg DAILY SC Last administered on 06/22/17 09:20 ; Admin Dose 40 MG; Start 06/22/17 at 09:00 Metoprolol Tartrate (Lopressor) 25 mg BID PO Last administered on 06/22/17 21: 25; Admin Dose 25 MG; Start 06/21/17 at 21:00 Hydralazine HCl (Apresoline) 10 mg Q6H PRN IV sbp.160mmhg Last administered on 06/22/17 00:50; Admin Dose 10 MG; Start 06/21/17 at 16:30 Famotidine (Pepcid) 20 mg BID GTB Last administered on 06/22/17 21:24; Admin Dose 20 MG; Start 06/22/17 at 21:00 Voriconazole (Vfend) 200 mg BID GTB Last administered on 06/22/17 21:26; Admin Dose 200 MG; Start 06/22/17 at 21:00 JOE JIMENES MD Jun 22, 2017 23:46
[2017-06-23] VITALS (23 sets, daily range): BP systolic 133–182; BP diastolic 63–79; PULSE 84–100; RESP 19–23
[2017-06-23] MEDS: SOD CHLORIDE 0.9% 1,000 ML IV SCH ×2 (01:31→15:39)
[2017-06-23] MEDS: INSULIN ASPART [NOVOLOG] 3 ML PEN SC SCH ×5 (01:38→17:23)
[2017-06-23] MEDS: ACCU-CHEK XX SCH (01:38)
[2017-06-23] MEDS: LEVALBUTEROL (NEB) 0.63 MG/3 ML AMP HHN SCH ×6 (01:39→22:00)
[2017-06-23] MEDS: hydrALAzine 20 MG INJ IV PRN (03:54)
[2017-06-23] MEDS: VANCOMYCIN 500MG/NS (PMX) 100 ML IVPB SCH ×2 (05:17→18:11)
[2017-06-23 07:19] LABS: ABNORMAL IP MESSAGE 1; BASOPHIL # 0.1 10^3/ul (0.0-0.1); BASOPHILS % 0.8 % (0.0-2.0); EOSINOPHILS # 0.4 10^3/ul (0.0-0.5); EOSINOPHILS % 5.2 % (0.0-7.0); HEMOGLOBIN 9.9 g/dl (12.0-16.0); LYMPHOCYTES # 1.6 10^3/ul (0.8-2.9); LYMPHOCYTES % 19.7 % (15.0-51.0); MEAN CORPUSCULAR HEMOGLOBIN 23.2 pg (29.0-33.0); MEAN CORPUSCULAR VOLUME 77.5 fl (82.0-101.0); MEAN PLATELET VOLUME 11.6 fl (7.4-10.4); MONOCYTE # 0.5 10^3/ul (0.3-0.9); MONOCYTES % 5.6 % (0.0-11.0); NEUTROPHILS % 60.1 % (39.0-77.0); PLATELET COUNT 402 10^3/UL (140-415); RED BLOOD COUNT 4.26 10^6/ul (4.20-5.40); RED CELL DISTRIBUTION WIDTH 19.5 % (11.5-14.5); WHITE BLOOD COUNT 8.3 10^3/ul (4.8-10.8)
[2017-06-23 07:23] LABS: POSITIVE DIFF @See below
[2017-06-23] MEDS: INSULIN GLARGINE [LANtus] 3 ML PEN SC SCH (08:21)
[2017-06-23 08:31] LABS: CALCIUM 9.2 mg/dl (8.4-10.2); CREATININE 0.42 mg/dl (0.44-1.00); POTASSIUM 3.8 mmol/L (3.5-5.1)
[2017-06-23] MEDS: ZINC SULFATE 220 MG CAP GTB SCH (08:48)
[2017-06-23] MEDS: metFORMIN 500 MG TAB NGT SCH ×2 (08:48→22:03)
[2017-06-23] MEDS: traMADol 50 MG TAB GTB SCH ×2 (08:48→22:11)
[2017-06-23] MEDS: ASCORBIC ACID 500 MG TAB GTB SCH (08:48)
[2017-06-23] MEDS: CLOPIDOGREL 75 MG TAB GTB SCH (08:48)
[2017-06-23] MEDS: FAMOTIDINE 20 MG TAB GTB SCH ×2 (08:48→22:07)
[2017-06-23] MEDS: VORICONAZOLE 200 MG TAB GTB SCH ×2 (08:49→22:10)
[2017-06-23] MEDS: FUROSEMIDE 20 MG INJ IV SCH (08:49)
[2017-06-23] MEDS: METOPROLOL 25 MG TAB PO SCH ×2 (08:49→22:05)
[2017-06-23] MEDS: LEVETIRACETAM (100 MG/ML) 5ML CUP GTB SCH ×2 (08:50→22:03)
[2017-06-23] MEDS: ENOXAPARIN 40 MG/0.4 ML SYG SC SCH (08:56)
[2017-06-23] MEDS: MUPIROCIN 2% 22 GM OINT TOP SCH ×2 (08:59→22:05)
[2017-06-23] MEDS: COLLAGENASE 30 GM TUBE TOP SCH ×2 (09:00→22:06)
--- NOTE | 2017-06-23 10:05 | PN ---
Date/Time of Note Date/Time of Note DATE: 06/23/17 TIME: 10:03 Assessment/Plan VTE Prophylaxis VTE Prophylaxis Intervention: SCD's Lines/Catheters IV Catheter Type (from Nrsg): Peripheral IV Urinary Cath still in place: Yes Reason Cath still needed: terminal illness/intractable pain Assessment/Plan Assessment/Plan ASSESSMENT 1. Hypercarbic and hypoxic respiratory failure: remains on bipap for now per pulm 2. Sepsis 2/2 bacteremia, UTI, jose cellulitis: ?improving 3. Staph bacteremia 4. Multiorganism UTI 5. Jose LE Cellulitis 6. Hypertensive urgency: improved but still with suboptimal control 7. History of CVA, patient in vegetative kind of state with a hx advanced dementia 8. Dysphagia, with G-tube for feeding 9. Diabetes with hyperglycemia, A1C 9.0 10. Seizure disorder. 11. History of prior tracheostomy with subsequent decannulation. PLAN: Continue bipap. mgmt per pulmonary Continue abx Palliative care consult Iron replacement therapy Adjust insulin as needed Continue supportive care Appreciate all consults Exam/Review of Systems Vital Signs Vitals Vital Signs Date Time Temp Pulse Resp B/P Pulse Ox O2 Delivery O2 Flow Rate FiO2 06/23/17 09:13 90 99 30 06/23/17 07:37 99.6 20 181/74 06/21/17 09:55 3.0 Intake and Output 06/22/17 06/22/17 06/23/17 15:00 23:00 07:00 Intake Total 250 ml 1585 ml 1125 ml Output Total 1500 ml 2050 ml Balance 250 ml 85 ml -925 ml Results Result Diagram: 06/23/17 0607 06/23/17 0607 Results 24 hrs Laboratory Tests Test 06/22/17 12:48 06/22/17 17:16 06/22/17 21:23 06/23/17 01:29 Bedside Glucose 239 H 185 229 H 266 H Test 06/23/17 01:30 06/23/17 05:10 06/23/17 06:07 06/23/17 08:15 Bedside Glucose 257 H 239 H 194 White Blood Count 8.3 Red Blood Count 4.26 Hemoglobin 9.9 L Hematocrit 33.0 L Mean Corpuscular Volume 77.5 L Mean Corpuscular Hemoglobin 23.2 L Mean Corpuscular Hemoglobin Concent 30.0 L Red Cell Distribution Width 19.5 H Platelet Count 402 Mean Platelet Volume 11.6 H Neutrophils % 60.1 Lymphocytes % 19.7 Monocytes % 5.6 Eosinophils % 5.2 Basophils % 0.8 Nucleated Red Blood Cells % 0.0 Neutrophils # (Manual) 5.0 Lymphocytes # 1.6 Monocytes # 0.5 Eosinophils # 0.4 Basophils # 0.1 Nucleated Red Blood Cells # 0.0 Sodium Level 143 Potassium Level 3.8 Chloride Level 103 Carbon Dioxide Level 33 H Anion Gap 11 Blood Urea Nitrogen 17 Creatinine 0.42 L Glucose Level 219 Calcium Level 9.2 Medications Medications Current Medications Acetaminophen (Tylenol Tab) 650 mg Q4 PRN PO PAIN AND OR ELEVATED TEMP; Start 06/19/17 at 06:30 Ascorbic Acid (Vitamin C) 500 mg DAILY GTB Last administered on 06/23/17 08:48 ; Admin Dose 500 MG; Start 06/19/17 at 09:00 Bisacodyl (Dulcolax) 10 mg DAILY PRN PO CONSTIPATION; Start 06/19/17 at 08:00 Clonidine (Catapres) 0.1 mg Q6H PRN GTB SBP ABOVE 160; Start 06/19/17 at 06:30 Clopidogrel Bisulfate (plaVIX) 75 mg DAILY GTB Last administered on 06/23/17 08 :48; Admin Dose 75 MG; Start 06/19/17 at 09:00 Levetiracetam (Keppra Liquid) 500 mg BID GTB Last administered on 06/23/17 08: 50; Admin Dose 500 MG; Start 06/19/17 at 09:00 Losartan Potassium (Cozaar) 100 mg QHS GTB Last administered on 06/22/17 21:26 ; Admin Dose 100 MG; Start 06/19/17 at 21:00 Magnesium Hydroxide (Milk Of Mag) 30 ml DAILY PRN GTB CONSTIPATION; Start at 06:30 Tramadol HCl (Ultram) 50 mg Q12 GTB Last administered on 06/23/17 08:48; Admin Dose 50 MG; Start 06/19/17 at 09:00 Zinc Sulfate (Zinc Sulfate) 220 mg DAILY GTB Last administered on 06/23/17 08: 48; Admin Dose 220 MG; Start 06/19/17 at 09:00 Diagnostic Test (Pha) 1 ea 1 ea 02 XX Last administered on 06/23/17 01:38; Admin Dose 1 EA; Start 06/20/17 at 02:00 Vancomycin HCl (Vancocin) 100 ml @ 100 mls/hr Q12H IVPB Last administered on 05:17; Admin Dose 100 MLS/HR; Start 06/19/17 at 18:00 Miscellaneous Information (Pending Santyl Order For Wound Care) This patient valenzuela... PRN PRN XX WOUND CARE; Start 06/19/17 at 16:00 Miscellaneous Information 1 ea NOTE XX ; Start 06/20/17 at 03:00 Glucose (Glutose) 15 gm Q15M PRN PO DECREASED GLUCOSE; Start 06/20/17 at 03:00 Glucose (Glutose) 22.5 gm Q15M PRN PO DECREASED GLUCOSE; Start 06/20/17 at 03:00 Dextrose (D50w Syringe) 25 ml Q15M PRN IV DECREASED GLUCOSE; Start 06/20/17 at 03:00 Dextrose (D50w Syringe) 50 ml Q15M PRN IV DECREASED GLUCOSE; Start 06/20/17 at 03:00 Glucagon (Glucagen) 1 mg Q15M PRN IM DECREASED GLUCOSE; Start 06/20/17 at 03:00 Glucose (Glutose) 15 gm Q15M PRN BUCCAL DECREASED GLUCOSE; Start 06/20/17 at 03: 00 Ondansetron HCl (Zofran Inj) 4 mg Q6H PRN IV NAUSEA AND/OR VOMITING; Start 06/20 at 05:00 Collagenase (Santyl) 1 applic Q12 TOP Last administered on 06/23/17 09:00; Admin Dose 1 APPLIC; Start 06/20/17 at 06:00 Collagenase (Santyl) 1 applic PRN PRN TOP PRN Last administered on 06/20/17 12: 57; Admin Dose 1 APPLIC; Start 06/20/17 at 05:00 Mupirocin 1 applic 1 applic BID TOP Last administered on 06/23/17 08:59; Admin Dose 1 APPLIC; Start 06/20/17 at 12:00 Sodium Chloride (NS) 1,000 ml @ 75 mls/hr [id number] IV Last administered on 01:31; Admin Dose 75 MLS/HR; Start 06/20/17 at 12:00 Insulin Aspart NOVOLOG *MILD* ALGORI... Q4 SC Last administered on 06/23/17 08: 55; Admin Dose 2 UNIT; Start 06/21/17 at 13:00 Ferric Sodium Gluconate Complex/ Sodium Chloride (Ferrlecit/NS) 110 ml @ 110 mls/hr Q24H IVPB Last administered on 06/22/17 17:17; Admin Dose 110 MLS/HR; Start 06/21/17 at 18:00; Stop 06/25/17 at 18:59 Insulin Glargine (Lantus) 45 unit DAILY@08 SC Last administered on 06/23/17 08: 21; Admin Dose 45 UNIT; Start 06/22/17 at 08:00 Metformin HCl (Glucophage) 500 mg BID NGT Last administered on 06/23/17 08:48; Admin Dose 500 MG; Start 06/21/17 at 21:00 Furosemide (Lasix) 20 mg DAILY IV Last administered on 06/23/17 08:49; Admin Dose 20 MG; Start 06/21/17 at 16:30; Stop 06/23/17 at 16:29 Enoxaparin Sodium (Lovenox) 40 mg DAILY SC Last administered on 06/23/17 08:56 ; Admin Dose 40 MG; Start 06/22/17 at 09:00 Metoprolol Tartrate (Lopressor) 25 mg BID PO Last administered on 06/23/17 08: 49; Admin Dose 25 MG; Start 06/21/17 at 21:00 Hydralazine HCl (Apresoline) 10 mg Q6H PRN IV sbp.160mmhg Last administered on 06/23/17 03:54; Admin Dose 10 MG; Start 06/21/17 at 16:30 Famotidine (Pepcid) 20 mg BID GTB Last administered on 06/23/17 08:48; Admin Dose 20 MG; Start 06/22/17 at 21:00 Voriconazole (Vfend) 200 mg BID GTB Last administered on 06/23/17 08:49; Admin Dose 200 MG; Start 06/22/17 at 21:00 JOE JIMENES MD Jun 23, 2017 10:05
--- NOTE | 2017-06-23 10:25 | PN ---
Date/Time of Note Date/Time of Note DATE: 06/23/17 TIME: 10:22 Assessment/Plan VTE Prophylaxis VTE Prophylaxis Intervention: LMWH Lines/Catheters IV Catheter Type (from Nrs): Peripheral IV Urinary Cath still in place: Yes Reason Cath still needed: terminal illness/intractable pain Assessment/Plan Assessment/Plan ASSESSMENT 1. Hypercarbic and hypoxic respiratory failure: remains on bipap for now per pulm 2. Sepsis 2/2 bacteremia, UTI, jose cellulitis: ?improving 3. Staph bacteremia 4. Multiorganism UTI 5. Jose LE Cellulitis 6. Hypertensive urgency: improved but still with suboptimal control 7. History of CVA, patient in vegetative kind of state with a hx advanced dementia 8. Dysphagia, with G-tube for feeding 9. Diabetes with hyperglycemia, A1C 9.0 10. Seizure disorder. 11. History of prior tracheostomy with subsequent decannulation. PLAN: Continue bipap. mgmt per pulmonary Continue abx Palliative care consult Iron replacement therapy Adjust insulin as needed Continue supportive care Appreciate all consults Exam/Review of Systems Vital Signs Vitals Vital Signs Date Time Temp Pulse Resp B/P Pulse Ox O2 Delivery O2 Flow Rate FiO2 06/23/17 09:13 90 99 30 06/23/17 07:37 99.6 20 181/74 06/21/17 09:55 3.0 Intake and Output 06/22/17 06/22/17 06/23/17 14:59 22:59 06:59 Intake Total 250 ml 1585 ml 1125 ml Output Total 1500 ml 2050 ml Balance 250 ml 85 ml -925 ml Exam Constitutional: other (On BiPAP. Not following commands) Head: atraumatic, normocephalic Eyes: PERRL Respiratory: diminished breath sounds Cardiovascular: nl pulses, regular rate and rhythm Gastrointestinal: soft Musculoskeletal: other (Right lower extremity erythema) Results Result Diagram: 06/23/17 0607 06/23/17 0607 Results 24 hrs Laboratory Tests Test 06/22/17 12:48 06/22/17 17:16 06/22/17 21:23 06/23/17 01:29 Bedside Glucose 239 H 185 229 H 266 H Test 06/23/17 01:30 06/23/17 05:10 06/23/17 06:07 06/23/17 08:15 Bedside Glucose 257 H 239 H 194 White Blood Count 8.3 Red Blood Count 4.26 Hemoglobin 9.9 L Hematocrit 33.0 L Mean Corpuscular Volume 77.5 L Mean Corpuscular Hemoglobin 23.2 L Mean Corpuscular Hemoglobin Concent 30.0 L Red Cell Distribution Width 19.5 H Platelet Count 402 Mean Platelet Volume 11.6 H Neutrophils % 60.1 Lymphocytes % 19.7 Monocytes % 5.6 Eosinophils % 5.2 Basophils % 0.8 Nucleated Red Blood Cells % 0.0 Neutrophils # (Manual) 5.0 Lymphocytes # 1.6 Monocytes # 0.5 Eosinophils # 0.4 Basophils # 0.1 Nucleated Red Blood Cells # 0.0 Sodium Level 143 Potassium Level 3.8 Chloride Level 103 Carbon Dioxide Level 33 H Anion Gap 11 Blood Urea Nitrogen 17 Creatinine 0.42 L Glucose Level 219 Calcium Level 9.2 Medications Medications Current Medications Acetaminophen (Tylenol Tab) 650 mg Q4 PRN PO PAIN AND OR ELEVATED TEMP; Start 06/19/17 at 06:30 Ascorbic Acid (Vitamin C) 500 mg DAILY GTB Last administered on 06/23/17 08:48 ; Admin Dose 500 MG; Start 06/19/17 at 09:00 Bisacodyl (Dulcolax) 10 mg DAILY PRN PO CONSTIPATION; Start 06/19/17 at 08:00 Clonidine (Catapres) 0.1 mg Q6H PRN GTB SBP ABOVE 160; Start 06/19/17 at 06:30 Clopidogrel Bisulfate (plaVIX) 75 mg DAILY GTB Last administered on 06/23/17 08 :48; Admin Dose 75 MG; Start 06/19/17 at 09:00 Levetiracetam (Keppra Liquid) 500 mg BID GTB Last administered on 06/23/17 08: 50; Admin Dose 500 MG; Start 06/19/17 at 09:00 Losartan Potassium (Cozaar) 100 mg QHS GTB Last administered on 06/22/17 21:26 ; Admin Dose 100 MG; Start 06/19/17 at 21:00 Magnesium Hydroxide (Milk Of Mag) 30 ml DAILY PRN GTB CONSTIPATION; Start at 06:30 Tramadol HCl (Ultram) 50 mg Q12 GTB Last administered on 06/23/17 08:48; Admin Dose 50 MG; Start 06/19/17 at 09:00 Zinc Sulfate (Zinc Sulfate) 220 mg DAILY GTB Last administered on 06/23/17 08: 48; Admin Dose 220 MG; Start 06/19/17 at 09:00 Diagnostic Test (Pha) 1 ea 1 ea 02 XX Last administered on 06/23/17 01:38; Admin Dose 1 EA; Start 06/20/17 at 02:00 Vancomycin HCl (Vancocin) 100 ml @ 100 mls/hr Q12H IVPB Last administered on 05:17; Admin Dose 100 MLS/HR; Start 06/19/17 at 18:00 Miscellaneous Information (Pending Santyl Order For Wound Care) This patient valenzuela... PRN PRN XX WOUND CARE; Start 06/19/17 at 16:00 Miscellaneous Information 1 ea NOTE XX ; Start 06/20/17 at 03:00 Glucose (Glutose) 15 gm Q15M PRN PO DECREASED GLUCOSE; Start 06/20/17 at 03:00 Glucose (Glutose) 22.5 gm Q15M PRN PO DECREASED GLUCOSE; Start 06/20/17 at 03:00 Dextrose (D50w Syringe) 25 ml Q15M PRN IV DECREASED GLUCOSE; Start 06/20/17 at 03:00 Dextrose (D50w Syringe) 50 ml Q15M PRN IV DECREASED GLUCOSE; Start 06/20/17 at 03:00 Glucagon (Glucagen) 1 mg Q15M PRN IM DECREASED GLUCOSE; Start 06/20/17 at 03:00 Glucose (Glutose) 15 gm Q15M PRN BUCCAL DECREASED GLUCOSE; Start 06/20/17 at 03: 00 Ondansetron HCl (Zofran Inj) 4 mg Q6H PRN IV NAUSEA AND/OR VOMITING; Start 06/20 at 05:00 Collagenase (Santyl) 1 applic Q12 TOP Last administered on 06/23/17 09:00; Admin Dose 1 APPLIC; Start 06/20/17 at 06:00 Collagenase (Santyl) 1 applic PRN PRN TOP PRN Last administered on 06/20/17 12: 57; Admin Dose 1 APPLIC; Start 06/20/17 at 05:00 Mupirocin 1 applic 1 applic BID TOP Last administered on 06/23/17 08:59; Admin Dose 1 APPLIC; Start 06/20/17 at 12:00 Sodium Chloride (NS) 1,000 ml @ 75 mls/hr [id number] IV Last administered on 01:31; Admin Dose 75 MLS/HR; Start 06/20/17 at 12:00 Insulin Aspart NOVOLOG *MILD* ALGORI... Q4 SC Last administered on 06/23/17 08: 55; Admin Dose 2 UNIT; Start 06/21/17 at 13:00 Ferric Sodium Gluconate Complex/ Sodium Chloride (Ferrlecit/NS) 110 ml @ 110 mls/hr Q24H IVPB Last administered on 06/22/17 17:17; Admin Dose 110 MLS/HR; Start 06/21/17 at 18:00; Stop 06/25/17 at 18:59 Insulin Glargine (Lantus) 45 unit DAILY@08 SC Last administered on 06/23/17 08: 21; Admin Dose 45 UNIT; Start 06/22/17 at 08:00 Metformin HCl (Glucophage) 500 mg BID NGT Last administered on 06/23/17 08:48; Admin Dose 500 MG; Start 06/21/17 at 21:00 Furosemide (Lasix) 20 mg DAILY IV Last administered on 06/23/17 08:49; Admin Dose 20 MG; Start 06/21/17 at 16:30; Stop 06/23/17 at 16:29 Enoxaparin Sodium (Lovenox) 40 mg DAILY SC Last administered on 06/23/17 08:56 ; Admin Dose 40 MG; Start 06/22/17 at 09:00 Metoprolol Tartrate (Lopressor) 25 mg BID PO Last administered on 06/23/17 08: 49; Admin Dose 25 MG; Start 06/21/17 at 21:00 Hydralazine HCl (Apresoline) 10 mg Q6H PRN IV sbp.160mmhg Last administered on 06/23/17 03:54; Admin Dose 10 MG; Start 06/21/17 at 16:30 Famotidine (Pepcid) 20 mg BID GTB Last administered on 06/23/17 08:48; Admin Dose 20 MG; Start 06/22/17 at 21:00 Voriconazole (Vfend) 200 mg BID GTB Last administered on 06/23/17 08:49; Admin Dose 200 MG; Start 06/22/17 at 21:00 JOE JIMENES MD Jun 23, 2017 10:24
--- NOTE | 2017-06-23 13:25 | CONS ---
Date/Time of Note Date/Time of Note DATE: 06/23/17 TIME: 13:23 Assessment/Plan Assessment/Plan Additional Assessment/Plan Assessment and recommendations; 1. Patient admitted with hypercapnic and hypoxemic respiratory failure doing well on BiPAP. 2. History of hypertension, seizures, diabetes and CHF. 3. Advanced dementia. 4. Pneumonia. Continue current supportive care. Prognosis is guarded. Consultation Date/Type/Reason Admit Date/Time Jun 19, 2017 at 03:12 Initial Consult Date 06/19/17 Type of Consultation: Pulmonary 24 HR Interval Summary Free Text/Dictation Patient's condition remains tenuous. Still requiring BiPAP. Patient remains unresponsive due to advanced dementia which is her underlying mental status. General exam; elderly woman, on BiPAP. Currently in no distress. Unresponsive. Exam/Review of Systems Vital Signs Vitals Vital Signs Date Time Temp Pulse Resp B/P Pulse Ox O2 Delivery O2 Flow Rate FiO2 06/23/17 12:32 89 06/23/17 12:09 99.1 23 174/74 06/23/17 09:13 99 30 06/21/17 09:55 3.0 Intake and Output 06/22/17 06/22/17 06/23/17 15:00 23:00 07:00 Intake Total 250 ml 1585 ml 1125 ml Output Total 1500 ml 2050 ml Balance 250 ml 85 ml -925 ml Exam HEENT exam; supple neck, positive JVD. No lymphadenopathy. Patient is on full face BiPAP. Chest exam; diminished but clear breath sounds. S1-S2 audible, no murmurs. Regular rhythm. Abdomen exam; soft, no organomegaly. Bowel sounds audible. Extremity exam; trace edema. 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 Results Result Diagram: 06/23/17 0607 06/23/17 0607 Results 24 hrs Laboratory Tests Test 06/22/17 17:16 06/22/17 21:23 06/23/17 01:29 06/23/17 01:30 Bedside Glucose 185 229 H 266 H 257 H Test 06/23/17 05:10 06/23/17 06:07 06/23/17 08:15 06/23/17 11:53 Bedside Glucose 239 H 194 186 White Blood Count 8.3 Red Blood Count 4.26 Hemoglobin 9.9 L Hematocrit 33.0 L Mean Corpuscular Volume 77.5 L Mean Corpuscular Hemoglobin 23.2 L Mean Corpuscular Hemoglobin Concent 30.0 L Red Cell Distribution Width 19.5 H Platelet Count 402 Mean Platelet Volume 11.6 H Neutrophils % 60.1 Lymphocytes % 19.7 Monocytes % 5.6 Eosinophils % 5.2 Basophils % 0.8 Nucleated Red Blood Cells % 0.0 Neutrophils # (Manual) 5.0 Lymphocytes # 1.6 Monocytes # 0.5 Eosinophils # 0.4 Basophils # 0.1 Nucleated Red Blood Cells # 0.0 Sodium Level 143 Potassium Level 3.8 Chloride Level 103 Carbon Dioxide Level 33 H Anion Gap 11 Blood Urea Nitrogen 17 Creatinine 0.42 L Glucose Level 219 Calcium Level 9.2 Medications Medications Current Medications Acetaminophen (Tylenol Tab) 650 mg Q4 PRN PO PAIN AND OR ELEVATED TEMP; Start 06/19/17 at 06:30 Ascorbic Acid (Vitamin C) 500 mg DAILY GTB Last administered on 06/23/17 08:48 ; Admin Dose 500 MG; Start 06/19/17 at 09:00 Bisacodyl (Dulcolax) 10 mg DAILY PRN PO CONSTIPATION; Start 06/19/17 at 08:00 Clonidine (Catapres) 0.1 mg Q6H PRN GTB SBP ABOVE 160; Start 06/19/17 at 06:30 Clopidogrel Bisulfate (plaVIX) 75 mg DAILY GTB Last administered on 06/23/17 08 :48; Admin Dose 75 MG; Start 06/19/17 at 09:00 Levetiracetam (Keppra Liquid) 500 mg BID GTB Last administered on 06/23/17 08: 50; Admin Dose 500 MG; Start 06/19/17 at 09:00 Losartan Potassium (Cozaar) 100 mg QHS GTB Last administered on 06/22/17 21:26 ; Admin Dose 100 MG; Start 06/19/17 at 21:00 Magnesium Hydroxide (Milk Of Mag) 30 ml DAILY PRN GTB CONSTIPATION; Start at 06:30 Tramadol HCl (Ultram) 50 mg Q12 GTB Last administered on 06/23/17 08:48; Admin Dose 50 MG; Start 06/19/17 at 09:00 Zinc Sulfate (Zinc Sulfate) 220 mg DAILY GTB Last administered on 06/23/17 08: 48; Admin Dose 220 MG; Start 06/19/17 at 09:00 Diagnostic Test (Pha) 1 ea 1 ea 02 XX Last administered on 06/23/17 01:38; Admin Dose 1 EA; Start 06/20/17 at 02:00 Vancomycin HCl (Vancocin) 100 ml @ 100 mls/hr Q12H IVPB Last administered on 05:17; Admin Dose 100 MLS/HR; Start 06/19/17 at 18:00 Miscellaneous Information (Pending Santyl Order For Wound Care) This patient valenzuela... PRN PRN XX WOUND CARE; Start 06/19/17 at 16:00 Miscellaneous Information 1 ea NOTE XX ; Start 06/20/17 at 03:00 Glucose (Glutose) 15 gm Q15M PRN PO DECREASED GLUCOSE; Start 06/20/17 at 03:00 Glucose (Glutose) 22.5 gm Q15M PRN PO DECREASED GLUCOSE; Start 06/20/17 at 03:00 Dextrose (D50w Syringe) 25 ml Q15M PRN IV DECREASED GLUCOSE; Start 06/20/17 at 03:00 Dextrose (D50w Syringe) 50 ml Q15M PRN IV DECREASED GLUCOSE; Start 06/20/17 at 03:00 Glucagon (Glucagen) 1 mg Q15M PRN IM DECREASED GLUCOSE; Start 06/20/17 at 03:00 Glucose (Glutose) 15 gm Q15M PRN BUCCAL DECREASED GLUCOSE; Start 06/20/17 at 03: 00 Ondansetron HCl (Zofran Inj) 4 mg Q6H PRN IV NAUSEA AND/OR VOMITING; Start 06/20 at 05:00 Collagenase (Santyl) 1 applic Q12 TOP Last administered on 06/23/17 09:00; Admin Dose 1 APPLIC; Start 06/20/17 at 06:00 Collagenase (Santyl) 1 applic PRN PRN TOP PRN Last administered on 06/20/17 12: 57; Admin Dose 1 APPLIC; Start 06/20/17 at 05:00 Mupirocin 1 applic 1 applic BID TOP Last administered on 06/23/17 08:59; Admin Dose 1 APPLIC; Start 06/20/17 at 12:00 Sodium Chloride 1,000 ml @ 75 mls/hr [id number] IV Last administered on 06/23/17 01:31; Admin Dose 75 MLS/HR; Start 06/20/17 at 12:00 Ferric Sodium Gluconate Complex/ Sodium Chloride (Ferrlecit/NS) 110 ml @ 110 mls/hr Q24H IVPB Last administered on 06/22/17 17:17; Admin Dose 110 MLS/HR; Start 06/21/17 at 18:00; Stop 06/25/17 at 18:59 Metformin HCl (Glucophage) 500 mg BID NGT Last administered on 06/23/17 08:48; Admin Dose 500 MG; Start 06/21/17 at 21:00 Furosemide (Lasix) 20 mg DAILY IV Last administered on 06/23/17 08:49; Admin Dose 20 MG; Start 06/21/17 at 16:30; Stop 06/23/17 at 16:29 Enoxaparin Sodium (Lovenox) 40 mg DAILY SC Last administered on 06/23/17 08:56 ; Admin Dose 40 MG; Start 06/22/17 at 09:00 Metoprolol Tartrate (Lopressor) 25 mg BID PO Last administered on 06/23/17 08: 49; Admin Dose 25 MG; Start 06/21/17 at 21:00 Hydralazine HCl (Apresoline) 10 mg Q6H PRN IV sbp.160mmhg Last administered on 06/23/17 03:54; Admin Dose 10 MG; Start 06/21/17 at 16:30 Famotidine (Pepcid) 20 mg BID GTB Last administered on 06/23/17 08:48; Admin Dose 20 MG; Start 06/22/17 at 21:00 Voriconazole (Vfend) 200 mg BID GTB Last administered on 06/23/17 08:49; Admin Dose 200 MG; Start 06/22/17 at 21:00 Insulin Glargine (Lantus) 53 unit DAILY@08 SC ; Start 06/24/17 at 08:00 Insulin Aspart (Novolog Insulin Pen) NOVOLOG *MILD* ALGORI... Q6 SC Last administered on 06/23/17 11:57; Admin Dose 2 UNIT; Start 06/23/17 at 12:00 ADRIANA TOVAR Jun 23, 2017 13:25
--- NOTE | 2017-06-23 17:05 | CONS ---
Date/Time of Note Date/Time of Note DATE: 06/23/17 TIME: 17:05 Consultation Date/Type/Reason Admit Date/Time Jun 19, 2017 at 03:12 Type of Consultation: ID Referring Provider: JOE JIMENES MD Past Surgical History Past Surgical Hx: other (Tracheostomy, G-tube) Social History Alcohol Use: other (Unknown) Smoking Status: Unknown if ever smoked Drug Use: other (Unknown) Exam/Review of Systems Vital Signs Vitals Vital Signs Date Time Temp Pulse Resp B/P Pulse Ox O2 Delivery O2 Flow Rate FiO2 06/23/17 17:04 85 06/23/17 17:00 100 30 06/23/17 16:07 99.5 19 133/64 06/21/17 09:55 3.0 Intake and Output 06/22/17 06/22/17 06/23/17 15:00 23:00 07:00 Intake Total 250 ml 1585 ml 1125 ml Output Total 1500 ml 2050 ml Balance 250 ml 85 ml -925 ml Results Result Diagram: 06/23/17 0607 06/23/17 0607 Results 24 hrs Laboratory Tests Test 06/22/17 17:16 06/22/17 21:23 06/23/17 01:29 06/23/17 01:30 Bedside Glucose 185 229 H 266 H 257 H Test 06/23/17 05:10 06/23/17 06:07 06/23/17 08:15 06/23/17 11:53 Bedside Glucose 239 H 194 186 White Blood Count 8.3 Red Blood Count 4.26 Hemoglobin 9.9 L Hematocrit 33.0 L Mean Corpuscular Volume 77.5 L Mean Corpuscular Hemoglobin 23.2 L Mean Corpuscular Hemoglobin Concent 30.0 L Red Cell Distribution Width 19.5 H Platelet Count 402 Mean Platelet Volume 11.6 H Neutrophils % 60.1 Lymphocytes % 19.7 Monocytes % 5.6 Eosinophils % 5.2 Basophils % 0.8 Nucleated Red Blood Cells % 0.0 Neutrophils # (Manual) 5.0 Lymphocytes # 1.6 Monocytes # 0.5 Eosinophils # 0.4 Basophils # 0.1 Nucleated Red Blood Cells # 0.0 Sodium Level 143 Potassium Level 3.8 Chloride Level 103 Carbon Dioxide Level 33 H Anion Gap 11 Blood Urea Nitrogen 17 Creatinine 0.42 L Glucose Level 219 Calcium Level 9.2 Medications Medications Current Medications Acetaminophen (Tylenol Tab) 650 mg Q4 PRN PO PAIN AND OR ELEVATED TEMP; Start 06/19/17 at 06:30 Ascorbic Acid (Vitamin C) 500 mg DAILY GTB Last administered on 06/23/17 08:48 ; Admin Dose 500 MG; Start 06/19/17 at 09:00 Bisacodyl (Dulcolax) 10 mg DAILY PRN PO CONSTIPATION; Start 06/19/17 at 08:00 Clonidine (Catapres) 0.1 mg Q6H PRN GTB SBP ABOVE 160; Start 06/19/17 at 06:30 Clopidogrel Bisulfate (plaVIX) 75 mg DAILY GTB Last administered on 06/23/17 08 :48; Admin Dose 75 MG; Start 06/19/17 at 09:00 Levetiracetam (Keppra Liquid) 500 mg BID GTB Last administered on 06/23/17 08: 50; Admin Dose 500 MG; Start 06/19/17 at 09:00 Losartan Potassium (Cozaar) 100 mg QHS GTB Last administered on 06/22/17 21:26 ; Admin Dose 100 MG; Start 06/19/17 at 21:00 Magnesium Hydroxide (Milk Of Mag) 30 ml DAILY PRN GTB CONSTIPATION; Start at 06:30 Tramadol HCl (Ultram) 50 mg Q12 GTB Last administered on 06/23/17 08:48; Admin Dose 50 MG; Start 06/19/17 at 09:00 Zinc Sulfate (Zinc Sulfate) 220 mg DAILY GTB Last administered on 06/23/17 08: 48; Admin Dose 220 MG; Start 06/19/17 at 09:00 Diagnostic Test (Pha) 1 ea 1 ea 02 XX Last administered on 06/23/17 01:38; Admin Dose 1 EA; Start 06/20/17 at 02:00 Vancomycin HCl (Vancocin) 100 ml @ 100 mls/hr Q12H IVPB Last administered on 05:17; Admin Dose 100 MLS/HR; Start 06/19/17 at 18:00 Miscellaneous Information (Pending Santyl Order For Wound Care) This patient valenzuela... PRN PRN XX WOUND CARE; Start 06/19/17 at 16:00 Miscellaneous Information 1 ea NOTE XX ; Start 06/20/17 at 03:00 Glucose (Glutose) 15 gm Q15M PRN PO DECREASED GLUCOSE; Start 06/20/17 at 03:00 Glucose (Glutose) 22.5 gm Q15M PRN PO DECREASED GLUCOSE; Start 06/20/17 at 03:00 Dextrose (D50w Syringe) 25 ml Q15M PRN IV DECREASED GLUCOSE; Start 06/20/17 at 03:00 Dextrose (D50w Syringe) 50 ml Q15M PRN IV DECREASED GLUCOSE; Start 06/20/17 at 03:00 Glucagon (Glucagen) 1 mg Q15M PRN IM DECREASED GLUCOSE; Start 06/20/17 at 03:00 Glucose (Glutose) 15 gm Q15M PRN BUCCAL DECREASED GLUCOSE; Start 06/20/17 at 03: 00 Ondansetron HCl (Zofran Inj) 4 mg Q6H PRN IV NAUSEA AND/OR VOMITING; Start 06/20 at 05:00 Collagenase (Santyl) 1 applic Q12 TOP Last administered on 06/23/17 09:00; Admin Dose 1 APPLIC; Start 06/20/17 at 06:00 Collagenase (Santyl) 1 applic PRN PRN TOP PRN Last administered on 06/20/17 12: 57; Admin Dose 1 APPLIC; Start 06/20/17 at 05:00 Mupirocin 1 applic 1 applic BID TOP Last administered on 06/23/17 08:59; Admin Dose 1 APPLIC; Start 06/20/17 at 12:00 Sodium Chloride 1,000 ml @ 75 mls/hr [id number] IV Last administered on 06/23/17 15:39; Admin Dose 75 MLS/HR; Start 06/20/17 at 12:00 Ferric Sodium Gluconate Complex/ Sodium Chloride (Ferrlecit/NS) 110 ml @ 110 mls/hr Q24H IVPB Last administered on 06/22/17 17:17; Admin Dose 110 MLS/HR; Start 06/21/17 at 18:00; Stop 06/25/17 at 18:59 Metformin HCl (Glucophage) 500 mg BID NGT Last administered on 06/23/17 08:48; Admin Dose 500 MG; Start 06/21/17 at 21:00 Enoxaparin Sodium (Lovenox) 40 mg DAILY SC Last administered on 06/23/17 08:56 ; Admin Dose 40 MG; Start 06/22/17 at 09:00 Metoprolol Tartrate (Lopressor) 25 mg BID PO Last administered on 06/23/17 08: 49; Admin Dose 25 MG; Start 06/21/17 at 21:00 Hydralazine HCl (Apresoline) 10 mg Q6H PRN IV sbp.160mmhg Last administered on 06/23/17 03:54; Admin Dose 10 MG; Start 06/21/17 at 16:30 Famotidine (Pepcid) 20 mg BID GTB Last administered on 06/23/17 08:48; Admin Dose 20 MG; Start 06/22/17 at 21:00 Voriconazole (Vfend) 200 mg BID GTB Last administered on 06/23/17 08:49; Admin Dose 200 MG; Start 06/22/17 at 21:00 Insulin Glargine (Lantus) 53 unit DAILY@08 SC ; Start 06/24/17 at 08:00 Insulin Aspart (Novolog Insulin Pen) NOVOLOG *MILD* ALGORI... Q6 SC Last administered on 06/23/17 11:57; Admin Dose 2 UNIT; Start 06/23/17 at 12:00 ANTHONY JOY NP Jun 23, 2017 17:05
[2017-06-23] MEDS: SOD FERRIC GLUC COMPLX 125 MG in SOD CHLORIDE 0.9% 100 ML IVPB SCH (17:12)
[2017-06-23] MEDS ORDERED: CEFEPIME 1GM/50 ML (PMX) 50 ML IVPB SCH (21:00)
[2017-06-23] MEDS: LOSARTAN 50 MG TAB GTB SCH (22:04)
[2017-06-24] VITALS (15 sets, daily range): BP systolic 126–198; BP diastolic 61–81; PULSE 80–99; RESP 17–19
[2017-06-24] MEDS ORDERED: CHLORHEXIDINE GLUCONATE 15 ML UD CUP ZFS ONE (00:30)
[2017-06-24] MEDS ORDERED: CASPOFUNGIN 70 MG in SOD CHLORIDE 0.9% 250 ML IVPB ONE (00:30)
[2017-06-24] MEDS: INSULIN ASPART [NOVOLOG] 3 ML PEN SC SCH ×3 (01:29→11:33)
[2017-06-24] MEDS ORDERED: LORATADINE 10 MG TAB GTB SCH (01:47)
[2017-06-24] MEDS: LEVALBUTEROL (NEB) 0.63 MG/3 ML AMP HHN SCH ×5 (01:58→16:36)
[2017-06-24] MEDS: ACCU-CHEK XX SCH (02:00)
--- NOTE | 2017-06-24 03:19 | CONS ---
DATE OF ADMISSION: 06/19/2017 DATE OF CONSULTATION: 06/24/[address] Ofelia Quevedo Dictating infectious disease consultation for Dr. Ritchie Mcmullen. HISTORY OF PRESENT ILLNESS: The patient is a 71-year-old female, who was admitted on 06/19 through the emergency room from a residential facility with chief complaint of shortness of breath. The patient is not a good historian, but upon arrival, she was noted to have hypercapnic and hypoxic respiratory failure. Her white count was 17,200 with 4 bands, hemoglobin 10.4 g. Glucose 239. Urinalysis: 1.023, pH 6, +3 leukocyte esterase, 182 WBCs, 112 RBCs, many yeast and +3 glucose. Urine culture grew Krystle glabrata 10 to 5th colonies per mL. There was a positive MRSA screen of the nares. The patient had 2 blood cultures, that is, 2/2 of a set with MRSA positive, which was resistant to Bactrim, Cleocin and sensitive only to doxycycline and vancomycin. The patient was begun treatment with vancomycin and cefepime. Her white blood cell count fell to 8300. PAST MEDICAL HISTORY: Diabetes mellitus, seizure disorder, hypertension, congestive heart failure, cerebrovascular accident and dementia. IMAGING STUDIES: Chest x-ray revealed chronic interstitial changes diffusely in both lungs. PHYSICAL EXAMINATION: GENERAL APPEARANCE: Revealed a mildly obese, fair-skinned female lying in bed with a BiPAP mask and flushed in her face and upper chest. VITAL SIGNS: Temperature 99.3, pulse 105, respirations 17, blood pressure 123/67, pulse oximetry 95 with FiO2 of 30 percent. HEENT: The pupils are constricted, react to light. The patient has good corneal reflex. MUSCULOSKELETAL: She has some blood stain in a crease around the lower part of her neck and she has a quarter-sized clumped red macules on the pectoralis area, upper outer quadrant, and also laterally on the ribcage at the junction midway between the upper 3rd and lower 3rd of the ribcage. The patient also has now pale diffuse full roughly large-flame shaped areas of erythema on her lower extremities. GENITOURINARY: She has a Lane catheter in place. CHEST: Clear to auscultation. HEART: Regular. No murmur. ABDOMEN: Obese, soft. No palpable organs or masses. There is a Lane catheter draining clear medium marie urine. EXTREMITIES: She does not have any pedal edema. IMPRESSION: 1. Systemic inflammatory response. 2. Methicillin-resistant Staphylococcus aureus septicemia. 3. 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 4. Krystle glabrata urinary tract infection. 5. Diabetes mellitus. 6. Hypertension/congestive heart failure. 7. Seizure disorder. 8. Chronic obstructive pulmonary disease. RECOMMENDATIONS: I would continue the patient being treated with vancomycin for 14 days for her current and infection in the blood and the nares and mupirocin ointment to each naris twice a day for 14 days and 5 days of total body chlorhexidine baths daily 5 days in a row for skin decontamination and treat the patient with Cancidas for 14 days for her urinary tract infection. Thank you, Dr. De La O, the referring this interesting patient to Dr. Ritchie Mcmullen. Dictated By: Ofelia Quevedo MD /[email or web address]/[email or web address] /Document#: [id number]
[2017-06-24] MEDS: hydrALAzine 20 MG INJ IV PRN (05:52)
[2017-06-24] MEDS ORDERED: TRIAMCINOLONE ACET 0.1% 15 GM CR TOP ONE (06:00)
[2017-06-24] MEDS: VANCOMYCIN 750 MG in SOD CHLORIDE 0.9% 150 ML IVPB SCH ×2 (06:44→16:04)
[2017-06-24 07:15] LABS: ABNORMAL IP MESSAGE 1; BASOPHIL # 0.1 10^3/ul (0.0-0.1); BASOPHILS % 0.6 % (0.0-2.0); EOSINOPHILS # 0.4 10^3/ul (0.0-0.5); EOSINOPHILS % 3.8 % (0.0-7.0); HEMATOCRIT 32.7 % (37.0-47.0); HEMOGLOBIN 9.8 g/dl (12.0-16.0); LYMPHOCYTES # 1.5 10^3/ul (0.8-2.9); LYMPHOCYTES % 14.6 % (15.0-51.0); MEAN CORPUSCULAR HEMOGLOBIN 23.6 pg (29.0-33.0); MEAN CORPUSCULAR VOLUME 78.6 fl (82.0-101.0); MEAN PLATELET VOLUME 11.1 fl (7.4-10.4); MONOCYTE # 0.5 10^3/ul (0.3-0.9); MONOCYTES % 4.4 % (0.0-11.0); NEUTROPHILS % 70.1 % (39.0-77.0); PLATELET COUNT 418 10^3/UL (140-415); RED BLOOD COUNT 4.16 10^6/ul (4.20-5.40); RED CELL DISTRIBUTION WIDTH 19.5 % (11.5-14.5); WHITE BLOOD COUNT 10.1 10^3/ul (4.8-10.8)
[2017-06-24 07:20] LABS: POSITIVE DIFF @See below
[2017-06-24] MEDS ORDERED: INSULIN GLARGINE [LANtus] 3 ML PEN SC SCH (08:00)
[2017-06-24 08:04] LABS: ALBUMIN 3.2 g/dl (3.3-4.9); ALBUMIN/GLOBULIN RATIO 1.06; CALCIUM 9.2 mg/dl (8.4-10.2); CREATININE 0.45 mg/dl (0.44-1.00); POTASSIUM 3.7 mmol/L (3.5-5.1); TOTAL PROTEIN 6.2 g/dl (6.1-8.1)
[2017-06-24] MEDS: SOD CHLORIDE 0.9% 1,000 ML IV SCH (08:22)
[2017-06-24] MEDS: COLLAGENASE 30 GM TUBE TOP SCH (08:37)
[2017-06-24] MEDS: metFORMIN 500 MG TAB NGT SCH (08:38)
[2017-06-24] MEDS: VORICONAZOLE 200 MG TAB GTB SCH (08:38)
[2017-06-24] MEDS: LEVETIRACETAM (100 MG/ML) 5ML CUP GTB SCH (08:38)
[2017-06-24] MEDS: ASCORBIC ACID 500 MG TAB GTB SCH (08:39)
[2017-06-24] MEDS: ZINC SULFATE 220 MG CAP GTB SCH (08:39)
[2017-06-24] MEDS: traMADol 50 MG TAB GTB SCH (08:39)
[2017-06-24] MEDS: METOPROLOL 25 MG TAB PO SCH (08:39)
[2017-06-24] MEDS: CLOPIDOGREL 75 MG TAB GTB SCH (08:39)
[2017-06-24] MEDS: ENOXAPARIN 40 MG/0.4 ML SYG SC SCH (08:43)
[2017-06-24] MEDS: FAMOTIDINE 20 MG TAB GTB SCH (08:49)
[2017-06-24] MEDS ORDERED: MUPIROCIN 2% 22 GM OINT TOP SCH (09:00)
[2017-06-24] MEDS ORDERED: CHLORHEXIDINE TOP SCH (09:00)
--- NOTE | 2017-06-24 11:01 | CONS ---
Date/Time of Note Date/Time of Note DATE: 06/24/17 TIME: 10:52 Consult Date/Type/Reason Admit Date/Time Jun 19, 2017 at 03:12 Initial Consult Date 06/19/17 Type of Consultation: Pulmonary Ordering Provider: JOE JIMENES MD Subjective Remains on BiPAP. Objective Vital Signs Date Time Temp Pulse Resp B/P Pulse Ox O2 Delivery O2 Flow Rate FiO2 06/24/17 09:19 86 18 99 30 06/24/17 07:49 98.5 139/63 06/21/17 09:55 3.0 Intake and Output 06/23/17 06/23/17 06/24/17 15:00 23:00 07:00 Intake Total 2900 ml 1200 ml Output Total 1350 ml 700 ml Balance 1550 ml 500 ml Exam GENERAL: Elderly lady opens eyes to voice on BiPAP appears comfortable VITAL SIGNS: per chart NECK: Supple. No JVD or lymphadenopathy. CARDIAC EXAM: S1, S2. No added sounds or murmurs. CHEST: clear bilaterally, No added sounds, rales or wheezes ABDOMEN: Soft, nontender. No guarding or rebound. EXTREMITIES: No cyanosis, clubbing or edema. NEUROLOGIC: Generalized weakness. No focal deficits. Results/Medications Result Diagram: 06/24/1762706/24/17627 Results 24 hrs Laboratory Tests Test 06/23/17 11:53 06/23/17 17:04 06/23/17 17:20 06/24/17 01:25 Bedside Glucose 186 170 191 Vancomycin Level Trough 9.6 L Test 06/24/17 02:37 06/24/17 06:28 06/24/17 06:43 06/24/17 07:36 Bedside Glucose 203 214 253 H White Blood Count 10.1 # Red Blood Count 4.16 L Hemoglobin 9.8 L Hematocrit 32.7 L Mean Corpuscular Volume 78.6 L Mean Corpuscular Hemoglobin 23.6 L Mean Corpuscular Hemoglobin Concent 30.0 L Red Cell Distribution Width 19.5 H Platelet Count 418 H Mean Platelet Volume 11.1 H Neutrophils % 70.1 Lymphocytes % 14.6 L Monocytes % 4.4 Eosinophils % 3.8 Basophils % 0.6 Nucleated Red Blood Cells % 0.0 Neutrophils # (Manual) 7.1 Lymphocytes # 1.5 Monocytes # 0.5 Eosinophils # 0.4 Basophils # 0.1 Nucleated Red Blood Cells # 0.0 Sodium Level 142 Potassium Level 3.7 Chloride Level 104 Carbon Dioxide Level 32 H Anion Gap 10 Blood Urea Nitrogen 20 Creatinine 0.45 Glucose Level 206 Calcium Level 9.2 Total Bilirubin 0.0 L Direct Bilirubin 0.00 Indirect Bilirubin 0.0 Aspartate Amino Transf (AST/SGOT) 17 Alanine Aminotransferase (ALT/SGPT) 29 Alkaline Phosphatase 169 H Total Protein 6.2 Albumin 3.2 L Globulin 3.00 Albumin/Globulin Ratio 1.06 Medications Current Medications Acetaminophen (Tylenol Tab) 650 mg Q4 PRN PO PAIN AND OR ELEVATED TEMP; Start 06/19/17 at 06:30 Ascorbic Acid (Vitamin C) 500 mg DAILY GTB Last administered on 06/24/17 08:39 ; Admin Dose 500 MG; Start 06/19/17 at 09:00 Bisacodyl (Dulcolax) 10 mg DAILY PRN PO CONSTIPATION; Start 06/19/17 at 08:00 Clonidine (Catapres) 0.1 mg Q6H PRN GTB SBP ABOVE 160; Start 06/19/17 at 06:30 Clopidogrel Bisulfate (plaVIX) 75 mg DAILY GTB Last administered on 06/24/17 08 :39; Admin Dose 75 MG; Start 06/19/17 at 09:00 Levetiracetam (Keppra Liquid) 500 mg BID GTB Last administered on 06/24/17 08: 38; Admin Dose 500 MG; Start 06/19/17 at 09:00 Losartan Potassium (Cozaar) 100 mg QHS GTB Last administered on 06/23/17 22:04 ; Admin Dose 100 MG; Start 06/19/17 at 21:00 Magnesium Hydroxide (Milk Of Mag) 30 ml DAILY PRN GTB CONSTIPATION; Start at 06:30 Tramadol HCl (Ultram) 50 mg Q12 GTB Last administered on 06/24/17 08:39; Admin Dose 50 MG; Start 06/19/17 at 09:00 Zinc Sulfate (Zinc Sulfate) 220 mg DAILY GTB Last administered on 06/24/17 08: 39; Admin Dose 220 MG; Start 06/19/17 at 09:00 Diagnostic Test (Pha) (Accu-Chek) 1 ea 02 XX Last administered on 06/24/17 02: 00; Admin Dose 1 EA; Start 06/20/17 at 02:00 Miscellaneous Information (Pending Santyl Order For Wound Care) This patient valenzuela... PRN PRN XX WOUND CARE; Start 06/19/17 at 16:00 Miscellaneous Information 1 ea NOTE XX ; Start 06/20/17 at 03:00 Glucose (Glutose) 15 gm Q15M PRN PO DECREASED GLUCOSE; Start 06/20/17 at 03:00 Glucose (Glutose) 22.5 gm Q15M PRN PO DECREASED GLUCOSE; Start 06/20/17 at 03:00 Dextrose (D50w Syringe) 25 ml Q15M PRN IV DECREASED GLUCOSE; Start 06/20/17 at 03:00 Dextrose (D50w Syringe) 50 ml Q15M PRN IV DECREASED GLUCOSE; Start 06/20/17 at 03:00 Glucagon (Glucagen) 1 mg Q15M PRN IM DECREASED GLUCOSE; Start 06/20/17 at 03:00 Glucose (Glutose) 15 gm Q15M PRN BUCCAL DECREASED GLUCOSE; Start 06/20/17 at 03: 00 Ondansetron HCl (Zofran Inj) 4 mg Q6H PRN IV NAUSEA AND/OR VOMITING; Start 06/20 at 05:00 Collagenase (Santyl) 1 applic Q12 TOP Last administered on 06/24/17 08:37; Admin Dose 1 APPLIC; Start 06/20/17 at 06:00 Collagenase 1 applic 1 applic PRN PRN TOP PRN Last administered on 06/20/17 12: 57; Admin Dose 1 APPLIC; Start 06/20/17 at 05:00 Sodium Chloride 1,000 ml @ 75 mls/hr [id number] IV Last administered on 06/24/17 08:22; Admin Dose 75 MLS/HR; Start 06/20/17 at 12:00 Ferric Sodium Gluconate Complex/ Sodium Chloride (Ferrlecit/NS) 110 ml @ 110 mls/hr Q24H IVPB Last administered on 06/23/17 17:12; Admin Dose 110 MLS/HR; Start 06/21/17 at 18:00; Stop 06/25/17 at 18:59 Metformin HCl (Glucophage) 500 mg BID NGT Last administered on 06/24/17 08:38; Admin Dose 500 MG; Start 06/21/17 at 21:00 Enoxaparin Sodium (Lovenox) 40 mg DAILY SC Last administered on 06/24/17 08:43 ; Admin Dose 40 MG; Start 06/22/17 at 09:00 Metoprolol Tartrate (Lopressor) 25 mg BID PO Last administered on 06/24/17 08: 39; Admin Dose 25 MG; Start 06/21/17 at 21:00 Hydralazine HCl (Apresoline) 10 mg Q6H PRN IV sbp.160mmhg Last administered on 06/24/17 05:52; Admin Dose 10 MG; Start 06/21/17 at 16:30 Famotidine (Pepcid) 20 mg BID GTB Last administered on 06/24/17 08:49; Admin Dose 20 MG; Start 06/22/17 at 21:00 Voriconazole (Vfend) 200 mg BID GTB Last administered on 06/24/17 08:38; Admin Dose 200 MG; Start 06/22/17 at 21:00 Insulin Glargine (Lantus) 53 unit DAILY@08 SC Last administered on 06/24/17 07: 39; Admin Dose 53 UNIT; Start 06/24/17 at 08:00 Insulin Aspart NOVOLOG *MILD* ALGORI... Q6 SC Last administered on 06/24/17 06: 47; Admin Dose 2 UNIT; Start 06/23/17 at 12:00 Vancomycin HCl/ Sodium Chloride (Vancocin/NS) 150 ml @ 75 mls/hr Q12H IVPB Last administered on 06/24/17 06:44; Admin Dose 75 MLS/HR; Start 06/24/17 at 06: 00 Loratadine 10 mg 10 mg DAILY GTB Last administered on 06/24/17 01:47; Admin Dose 10 MG; Start 06/24/17 at 01:47; Stop 06/30/17 at 10:00 Caspofungin/ Sodium Chloride (Cancidas/NS) 250 ml @ 250 mls/hr Q24H IVPB ; Start 06/25/17 at 00:30; Stop 07/09/17 at 01:29 Mupirocin (Bactroban) 1 applic BID TOP Last administered on 06/24/17 08:37; Admin Dose 1 APPLIC; Start 06/24/17 at 09:00; Stop 07/08/17 at 23:00 Non-Formulary Medication -TOTAL BODY BATH DAILY ... DAILY TOP Last administered on 06/24/17t 08:38; Admin Dose 1 EA; Start 06/24/17 at 09:00; Stop at 09:01 Assessment/Plan Chief Complaint/Hosp Course Assessment 1. Acute hypoxemic hypercapnic respiratory failure 2. Advanced dementia 3. MRSA sepsis 4. Krystle UTI Plan 1. Trial of BiPAP 2. Aspiration precautions 3. Continue antibiotics per ID transfer to SNF. Problems: CON[facility] FERNANDEZ [facility] Jun 24, 2017 11:01
[2017-06-24] MEDS ORDERED: RIFAMPIN 300 MG CAP PO SCH (11:30)
--- NOTE | 2017-06-24 14:10 | DS ---
Date/Time of Note Date/Time of Note DATE: 06/24/17 TIME: 13:57 Discharge Summary Admission/Discharge Info Admit Date/Time Jun 19, 2017 at 03:12 Discharge Date/Time Discharge Diagnosis hypercapnic and hypoxic respiratory failure and sepsis from fransisca UTI and MRSA bacteremia Patient Condition: Stable Consults ID, pulm Procedures CXR 9.3, 9.5: no infiltrates Micro 9.3 Blood cultures 1/2 MRSA, 2/2 CONS 9.4 urine culture fransisac glabrata 9.4 MRSA swab + 9.4, 9.5 blood cultures no growth Hx of Present Illness This is a 8-year-old female with a history of CVA, respiratory failure, hypertension, dysphagia with G-tube for feeding who was sent from SNF for shortness of breath. Patient is nonverbal and does not follow commands and as such information is gathered from chart review and from the ER physician. Patient was placed on BiPAP while she was in the ER. CXR showed Chronic appearing diffuse interstitial changes of the lung parenchyma with some elevation of the right hemidiaphragm. Patient also has erythema of left lower extremity, which is also warm to touch. She presented with BP of 200/98, temp 100.3. Labs shows WBC of 17,000, glucose 377, bicarb 33 and alk phos 207. ABG shows pH of 7.4, PCO2 50, PO2 151 and bicarb of 32 . Hospital Course Pt admitted for respiratory failure and sepsis. Respiratory failure improved with BiPap and lasix. Regarding sepsis, thought to be combo of MRSA bacteremia and fransisca UTI. Pt seen by ID, started on candicas AND vori though urine grew out CGlabrata. Given pt not neutropenic, this was unlikely to be contributing factor to sepsis. Nonetheless, ID advising 14 days systemic antifungal treatment with echinocandin IV in patient with functional GI tract. For MRSA bacteremia, source unclear. No TTE ordered. ID advising 14 days of therapy as MRSA only isolated in 1/2 admission blood cultures and all surveillance blood cultures negative. 2 weeks of vanc will also cover for CONS isolated in admission blood cultures. ID also advising MRSA decolonization though as pt lives in a SNF suspect recolonization is inevitable. Home Meds Reported Medications Tramadol HCl (Tramadol HCl) 50 Mg Tablet, 50 MG GTB Q8H Y for PAIN LEVEL 6-10, # 120 TAB 06/19/17 Bisacodyl* (Dulcolax*) 5 Mg Tablet.dr, 10 MG PO DAILY Y for CONSTIPATION, TAB 06/19/17 Acetaminophen* (Acetaminophen*) 650 Mg Tablet, 650 MG PO Q4 Y for PAIN AND OR ELEVATED TEMP, #30 TAB 06/19/17 Magnesium Hydroxide* (Milk Of Magnesia*) 400 Mg/5 Ml Oral.susp, 30 ML GTB DAILY Y for CONSTIPATION, ML 06/19/17 Ipratropium-Albuterol (Ipratropium-Albuterol) 0.5-3 Mg/3 Ml Ampul.neb, 3 ML INHALATION Q4 Y for SHORTNESS OF BREATH, #30 VIAL 06/19/17 Clonidine Hcl* (Clonidine Hcl*) 0.1 Mg Tab, 0.1 MG GTB Q6 Y for ELEVATED BLOOD PRESSURE, TAB 06/19/17 Insulin Detemir (Levemir Flextouch) 100 Unit/1 Ml Insuln.pen, 40 UNIT SQ WITH BREAKFAST 06/19/17 Levetiracetam* (Keppra*) 500 Mg/5 Ml Solution, 500 MG GTB BID, BOTTLE 06/19/17 Tramadol HCl (Tramadol HCl) 50 Mg Tablet, 50 MG GTB Q12, #60 TAB 06/19/17 Zinc Sulfate* (Zinc Sulfate*) 220 Mg Tablet, 220 MG GTB DAILY, TAB 06/19/17 Ascorbic Acid* (Vitamin C*) 500 Mg Capsule.sa, 500 MG GTB DAILY, CAP 06/19/17 Clopidogrel Bisulfate (Clopidogrel) 75 Mg Tablet, 75 MG GTB DAILY, #30 TAB 06/19/17 Cephalexin* (Cephalexin*) 500 Mg Capsule, 500 MG GTB Q6, #28 CAP 06/19/17 Losartan Potassium* (Cozaar*) 100 Mg Tablet, 100 MG GTB QHS, #30 TAB 06/19/17 Follow-up Plan to SNF Primary Care Provider Care Physician No Primary Time spent on discharge: > 30 minutes Pending Labs Laboratory Tests Test 06/23/17 17:04 06/23/17 17:20 06/24/17 01:25 06/24/17 02:37 Vancomycin Level Trough 9.6ug/ml (10.0-20.0) Bedside Glucose 170mg/dL (70-220) 191mg/dL (70-220) 203mg/dL (70-220) Test 06/24/17 06:28 06/24/17 06:43 06/24/17 07:36 06/24/17 11:29 White Blood Count 10.110^3/ul (4.8-10.8) Red Blood Count 4.1610^6/ul (4.20-5.40) Hemoglobin 9.8g/dl (12.0-16.0) Hematocrit 32.7% (37.0-47.0) Mean Corpuscular Volume 78.6fl (82.0-101.0) Mean Corpuscular Hemoglobin 23.6pg (29.0-33.0) Mean Corpuscular Hemoglobin Concent 30.0g/dl (32.0-37.0) Red Cell Distribution Width 19.5% (11.5-14.5) Platelet Count 70848^3/UL (140-415) Mean Platelet Volume 11.1fl (7.4-10.4) Neutrophils % 70.1% (39.0-77.0) Lymphocytes % 14.6% (15.0-51.0) Monocytes % 4.4% (0.0-11.0) Eosinophils % 3.8% (0.0-7.0) Basophils % 0.6% (0.0-2.0) Nucleated Red Blood Cells % 0.0/100WBC (0.0-0.0) Neutrophils # (Manual) 7.110^3/ul (1.7-7.5) Lymphocytes # 1.510^3/ul (0.8-2.9) Monocytes # 0.510^3/ul (0.3-0.9) Eosinophils # 0.410^3/ul (0.0-0.5) Basophils # 0.110^3/ul (0.0-0.1) Nucleated Red Blood Cells # 0.010^3/ul (0.0-0.0) Sodium Level 142mmol/L (135-144) Potassium Level 3.7mmol/L (3.5-5.1) Chloride Level 104mmol/L (97-110) Carbon Dioxide Level 32mmol/L (21-31) Anion Gap 10 (8-16) Blood Urea Nitrogen 20mg/dl (7-20) Creatinine 0.45mg/dl (0.44-1.00) Glucose Level 206mg/dl (70-220) Calcium Level 9.2mg/dl (8.4-10.2) Total Bilirubin 0.0mg/dl (0.2-1.3) Direct Bilirubin 0.00mg/dl (0.00-0.20) Indirect Bilirubin 0.0mg/dl (0-1.1) Aspartate Amino Transf (AST/SGOT) 17IU/L (15-46) Alanine Aminotransferase (ALT/SGPT) 29IU/L (13-69) Alkaline Phosphatase 169IU/L (42-121) Total Protein 6.2g/dl (6.1-8.1) Albumin 3.2g/dl (3.3-4.9) Globulin 3.00g/dl (1.3-3.2) Albumin/Globulin Ratio 1.06 Bedside Glucose 214mg/dL (70-220) 253mg/dL (70-220) 148mg/dL (70-220) LUDA MORENO MD Jun 24, 2017 14:08 (3.3-4.9) Globulin 3.00g/dl (1.3-3.2) Albumin/Globulin Ratio 1.06 Bedside Glucose 214mg/dL (70-220) 253mg/dL (70-220) 148mg/dL (70-220) LUDA MORENO MD Jun 24, 2017 14:08
--- NOTE | 2017-06-24 14:49 | PDOCDIS ---
Discharge Instructions DIAGNOSIS Discharge Diagnosis hypercapnic and hypoxic respiratory failure and sepsis from fransisca UTI and MRSA bacteremia CONDITION Patient Condition: Stable HOME CARE INSTRUCTIONS: Special Diet: GTUB FEEDING FOLLOW UP/APPOINTMENTS Follow-up Plan Follow up with PCP within 7 days Follow up with ID within 2 weeks Lliy Quevedo Office Address [address] [place] [id number] Office LUDA MORENO MD Jun 24, 2017 14:49
--- NOTE | 2017-06-24 18:59 | PN ---
DATE: 06/24/2017 SUBJECTIVE DATA: No events overnight. The patient is lying comfortably in bed. She is on nasal cannula. No fevers. Temperature 98.6, pulse, respirations 18, blood pressure 126/61, saturation 96 on 2 L. LABORATORY AND DIAGNOSTIC DATA: WBC 10.1, H and H 9.8 and 32.7, platelets 418, no shift, no bands. BUN 20, creatinine 0.45. MICROBIOLOGY: Blood cultures repeated on June 19 and remain negative. Initial culture grew MRSA. Nares swab came back positive for MRSA. Urine culture growing Krystle glabrata. INDWELLING: Lane and PEG. ANTIMICROBIALS: Patient remains on: 1. IV vancomycin. 2. Cancidas. 3. Rifampin. 4. She is also getting topical Bactroban to nares. PHYSICAL EXAMINATION: GENERAL: This is a chronically ill-appearing, obese, elderly woman, who is in no distress. HEENT: Head atraumatic, normocephalic. Sclerae anicteric. Buccal mucosa dry. NECK: Supple. Trachea midline. CHEST: Rise symmetrical. Breath sounds diminished at the bases. HEART: S1, S2. ABDOMEN: Soft. Obese. Bowel sounds present. EXTREMITIES: With trace edema. ASSESSMENT: 1. Methicillin sensitive Staphylococcus aureus bacteremia with repeat blood cultures negative. 2. Methicillin-resistant Staphylococcus aureus nares colonization. 3. Krystle glabrata urinary tract infection. 4. Diabetes. 5. Acute respiratory failure, status post BiPAP vent secondary to congestive heart failure exacerbation. 6. Chronic obstructive pulmonary disease. 7. Seizure disorder. 8. Encephalopathy. PLAN: The patient remains stable, covered with appropriate antimicrobials, which will repeat for a total of 2 weeks. Continue present care. Anti-aspiration measures. Dictated By: Vanesa Best NP /clyde/cheyanne /Document#: [id number]
[2017-06-25] MEDS ORDERED: CASPOFUNGIN 50 MG in SOD CHLORIDE 0.9% 250 ML IVPB SCH (00:30)
== END 2017-06-24 17:10 | DRG 871 ==
LOC: E/R 21:37 → TEL 06-19 03:12
PROVIDERS: ADMIT Internal Medicine; ATTEND Internal Medicine
DX: A41.1 Sepsis due to other specified staphylococcus (principal); J96.21 Acute and chronic respiratory failure with hypoxia; L89.154 Pressure ulcer of sacral region, stage 4; R40.3 Persistent vegetative state; J18.9 Pneumonia, unspecified organism; Z93.0 Tracheostomy status; E11.65 Type 2 diabetes mellitus with hyperglycemia; F03.90 Unspecified dementia, unspecified severity, without behavioral disturbance, psychotic disturbance, mood disturbance, and anxiety; L03.115 Cellulitis of right lower limb; J96.22 Acute and chronic respiratory failure with hypercapnia; L03.116 Cellulitis of left lower limb; B37.49 Other urogenital candidiasis; I16.0 Hypertensive urgency; R13.10 Dysphagia, unspecified; G40.909 Epilepsy, unspecified, not intractable, without status epilepticus; J44.9 Chronic obstructive pulmonary disease, unspecified; Z79.02 Long term (current) use of antithrombotics/antiplatelets; Z79.4 Long term (current) use of insulin; Z93.1 Gastrostomy status; Z74.01 Bed confinement status; Z86.73 Personal history of transient ischemic attack (TIA), and cerebral infarction without residual deficits
CPT/HCPCS: 36415; 36600; 71010; 80048; 80053; 80202; 81001; 82803; 82962; 83036; 83540; 83605; 83735; 84484; 85025; 85610; 85730; 87040; 87081; 87086; 93005; 94640; 94660; J1940; J0360; J0692; J1650; J1815; J1956; J2916; J3370; J7030; J7050

== ENCOUNTER 2017-08-13 19:42 | Inpatient (IN) | payer MEDICARE, OTHER ==
[~2017-08-13] VITALS: Ht 152.4 cm; Wt 68.9 kg
[2017-08-13] MEDS: PIPER-TAZO 3.375 GM IV (PMX) 100 ML IVPB SCH ×3 (06:00→12:00)
[~2017-08-13 19:42] MED LIST: ACET-2047 PO; ASCO500C7 GTB; BISA-57 PO; CEPH500C GTB; CLON-379 GTB; CLOP75TA27 GTB; ETOMIDATE 20 MG INJ ONE; INSU100I27 SQ; IPRA3AMP INHALATION; LEVE500S8 GTB; LOSA100T47 GTB; MAGN400O4 GTB; MIDAZOLAM 1 MG/ML 2 ML INJ ONE; PROPOFOL 200 MG INJ ONE; SUCCINYLCHOLINE CHLORIDE 100 MG/5 ML SYG IV ONE; TRAM50TA2 GTB; ZINC220T GTB
[2017-08-13] MEDS ORDERED: ACETAMINOPHEN 650 MG SUPP PR STA (19:59)
[2017-08-13] MEDS ORDERED: ROCURONIUM 50 MG INJ IV STA (19:59)
[2017-08-13] MEDS ORDERED: ETOMIDATE 20 MG INJ IV STA (19:59)
[2017-08-13] MEDS ORDERED: CEFEPIME 2GM/50 ML (PMX) 50 ML IVPB STA (19:59)
[2017-08-13] MEDS ORDERED: MIDAZOLAM (DRIP) 50 mg/50 mL 50 ML IV STA (19:59)
[2017-08-13] MEDS ORDERED: SODIUM CHLORIDE 0.9% 1L BAG IV* STA (19:59)
[2017-08-13] MEDS ORDERED: FENTAnyl (DRIP) 1000 mcg/100mL 100 ML IV ONE (20:00)
[2017-08-13] MEDS ORDERED: VANCOMYCIN 1 GM (PMX) 250 ML IVPB ONE (20:00)
[2017-08-13 21:08] LABS: BASOPHIL # 0.1 10^3/ul (0.0-0.1); BASOPHILS % 0.6 % (0.0-2.0); EOSINOPHILS # 0.4 10^3/ul (0.0-0.5); EOSINOPHILS % 2.4 % (0.0-7.0); HEMATOCRIT 34.9 % (37.0-47.0); HEMOGLOBIN 10.4 g/dl (12.0-16.0); LYMPHOCYTES # 1.8 10^3/ul (0.8-2.9); LYMPHOCYTES % 12.4 % (15.0-51.0); MEAN CORPUSCULAR HEMOGLOBIN 23.2 pg (29.0-33.0); MEAN CORPUSCULAR HGB CONC 29.8 g/dl (32.0-37.0); MEAN CORPUSCULAR VOLUME 77.7 fl (82.0-101.0); MEAN PLATELET VOLUME 10.5 fl (7.4-10.4); MONOCYTE # 0.5 10^3/ul (0.3-0.9); MONOCYTES % 3.7 % (0.0-11.0); NEUTROPHIL # 11.7 10^3/ul (1.6-7.5); NEUTROPHILS % 79.3 % (39.0-77.0); PLATELET COUNT 531 10^3/UL (140-415); RED BLOOD COUNT 4.49 10^6/ul (4.20-5.40); RED CELL DISTRIBUTION WIDTH 19.2 % (11.5-14.5); WHITE BLOOD COUNT 14.7 10^3/ul (4.8-10.8)
[2017-08-13 21:16] LABS: AADO2 Arterial 197.4 mmHg (7.0-24.0); Allen Test ACCEPTAB; Arterial Base Excess 5.2 mmol/L (-3.0-3); Arterial COHb 0.3 % (0.0-3.0); Arterial Fraction of Oxyhgb 98.9 % (93.0-99.0); Arterial HCO3 29.4 mmol/L (22.0-26.0); Arterial MetHb 0.5 % (0.0-1.5); Arterial Total Hemglobin 11.9 g/dl (12.0-18.0); MODE VENT - AC
[2017-08-13 21:23] LABS: INR 0.93; PROTIME 12.5 Sec (12.2-14.2)
[2017-08-13 21:24] LABS: PARTIAL THROMBOPLASTIN TIME 26.2 Sec (25.0-35.0)
[2017-08-13 21:27] LABS: ALANINE AMINOTRANSFERASE 24 IU/L (13-69); ALBUMIN 4.2 g/dl (3.3-4.9); ALBUMIN/GLOBULIN RATIO 1.35; ALKALINE PHOSPHATASE 199 IU/L (42-121); ANION GAP 17 (8-16); ASPARTATE AMINO TRANSFERASE 20 IU/L (15-46); BILIRUBIN,INDIRECT 0.1 mg/dl (0-1.1); BILIRUBIN,TOTAL 0.1 mg/dl (0.2-1.3); BLOOD UREA NITROGEN 21 mg/dl (7-20); CALCIUM 8.7 mg/dl (8.4-10.2); CARBON DIOXIDE 32 mmol/L (21-31); CHLORIDE 98 mmol/L (97-110); CREATININE 0.44 mg/dl (0.44-1.00); GLUCOSE 319 mg/dl (70-220); POTASSIUM 3.7 mmol/L (3.5-5.1); SODIUM 143 mmol/L (135-144); TOTAL PROTEIN 7.3 g/dl (6.1-8.1)
--- NOTE | 2017-08-13 21:28 | RADRPT ---
PROCEDURE: XR Chest. CLINICAL INDICATION: Possible sepsis TECHNIQUE: AP Portable chest. COMPARISON: No pertinent prior examinations were submitted for comparison. FINDINGS: The cardiomediastinal silhouette is normal. The lungs are clear. Osteoarthritic changes of the josé luis ulders are noted. An endotracheal tube tip is seen in the mid to distal trachea, 2.5 cm above the level of the daksha. IMPRESSION: No acute findings. RPTAT: HIKT .Jericho Aiken MD, MD Date Time Electronically viewed and signed by .Jericho Aiken MD, MD on 08/13/2017 21:28 .T/
[2017-08-13 21:29] LABS: ADD UMIC YES; UR ASCORBIC ACID 20 mg/dL (NEGATIVE); UR BILIRUBIN (Dip) NEGATIVE (NEGATIVE); UR BLOOD (Dip) 1+ mg/dL (NEGATIVE); UR CLARITY CLEAR (CLEAR); UR COLOR STRAW (YELLOW); UR GLUCOSE (Dip) 3+ mg/dL (NEGATIVE); UR KETONES (Dip) NEGATIVE (NEGATIVE); UR LEUKOCYTE ESTERASE (Dip) NEGATIVE Leu/ul (NEGATIVE); UR NITRITE (Dip) NEGATIVE (NEGATIVE); UR RBC 41 /HPF (0-5); UR SPECIFIC GRAVITY (Dip) 1.009 (1.003-1.030); UR TOTAL PROTEIN (Dip) 2+ mg/dl (NEGATIVE); UR UROBILINOGEN (Dip) NEGATIVE (NEGATIVE)
[2017-08-13 21:39] LABS: TROPONIN-I < 0.012 ng/ml (0.00-0.12)
[2017-08-13] MEDS ORDERED: FENTAnyl 50 MCG/ML VIAL ONE (22:09)
--- NOTE | 2017-08-13 22:21 | RADRPT ---
PROCEDURE: XR Chest. CLINICAL INDICATION: Shortness of breath. TECHNIQUE: AP Portable chest. COMPARISON: Examination performed earlier the same day. FINDINGS: The cardiomediastinal silhouette is normal. Lung volumes are diminished, accentuating the pulmonary markings. No definite focal infiltrates are seen. The osseous structures are unremarkable. An endotracheal tube tip is in the mid to distal trachea, 2.5 cm above the level of the daksha. A le ft internal jugular central venous catheter is seen with tip at the cavoatrial junction. IMPRESSION: No acute findings. RPTAT: HIKT .Jericho Aiken MD, MD Date Time Electronically viewed and signed by .Jericho Aiken MD, on 08/13/2017 22:21 .T/
[2017-08-13] MEDS ORDERED: FENTAnyl 50 MCG/ML VIAL IV ONE (22:30)
[2017-08-13] MEDS ORDERED: MIDAZOLAM 1 MG/ML 2 ML INJ IV ONE (22:30)
[2017-08-13] MEDS: FENTAnyl 1,000 MCG in DEXTROSE 5% 80 ML IV SCH (22:40)
[2017-08-13] MEDS ORDERED: ALBUTEROL HFA 8 GM INHALER INH PRN (23:00)
[2017-08-13] MEDS ORDERED: INSULIN GLARGINE [LANtus] 3 ML PEN SC SCH (23:00)
[2017-08-13] MEDS ORDERED: ACETAMINOPHEN 650 MG SUPP PR PRN (23:00)
[2017-08-13] MEDS ORDERED: IPRATROPIUM (HFA) 12.9 GM INHALER INH PRN (23:00)
[2017-08-13] MEDS ORDERED: VANCOMYCIN IV PER PHARMACY XX SCH (23:00)
[2017-08-13] MEDS ORDERED: LORAZEPAM 2 MG INJ IV PRN (23:00)
[2017-08-13] MEDS ORDERED: PROPOFOL 100 ML IV SCH (23:00)
[2017-08-13] MEDS ORDERED: ONDANSETRON 4 MG INJ IV PRN (23:00)
--- NOTE | 2017-08-13 23:03 | ERD ---
ER Documentation Chief Complaint Chief Complaint PT SENT FROM FROM [facility] IN RESPIRATORY DISTRESS HPI This is a 71-year-old female with chronic encephalopathy who is nonverbal at baseline who presents via EMS in respiratory distress. There is very limited information. EMS reports the patient is full code. It appears that the half-way facility only reports 10 minutes of symptoms however it is very clear this process has gone on longer. The patient is in extremis upon arrival and no further history is provided. ROS Critical patient Medications Home Meds Reported Medications Tramadol HCl (Tramadol HCl) 50 Mg Tablet, 50 MG GTB Q8H Y for PAIN LEVEL 6-10, # 120 TAB 06/19/17 Bisacodyl* (Dulcolax*) 5 Mg Tablet.dr, 10 MG PO DAILY Y for CONSTIPATION, TAB 06/19/17 Acetaminophen* (Acetaminophen*) 650 Mg Tablet, 650 MG PO Q4 Y for PAIN AND OR ELEVATED TEMP, #30 TAB 06/19/17 Magnesium Hydroxide* (Milk Of Magnesia*) 400 Mg/5 Ml Oral.susp, 30 ML GTB DAILY Y for CONSTIPATION, ML 06/19/17 Ipratropium-Albuterol (Ipratropium-Albuterol) 0.5-3 Mg/3 Ml Ampul.neb, 3 ML INHALATION Q4 Y for SHORTNESS OF BREATH, #30 VIAL 06/19/17 Clonidine Hcl* (Clonidine Hcl*) 0.1 Mg Tab, 0.1 MG GTB Q6 Y for ELEVATED BLOOD PRESSURE, TAB 06/19/17 Insulin Detemir (Levemir Flextouch) 100 Unit/1 Ml Insuln.pen, 40 UNIT SQ WITH BREAKFAST 06/19/17 Levetiracetam* (Keppra*) 500 Mg/5 Ml Solution, 500 MG GTB BID, BOTTLE 06/19/17 Tramadol HCl (Tramadol HCl) 50 Mg Tablet, 50 MG GTB Q12, #60 TAB 06/19/17 Zinc Sulfate* (Zinc Sulfate*) 220 Mg Tablet, 220 MG GTB DAILY, TAB 06/19/17 Ascorbic Acid* (Vitamin C*) 500 Mg Capsule.sa, 500 MG GTB DAILY, CAP 06/19/17 Clopidogrel Bisulfate (Clopidogrel) 75 Mg Tablet, 75 MG GTB DAILY, #30 TAB 06/19/17 Cephalexin* (Cephalexin*) 500 Mg Capsule, 500 MG GTB Q6, #28 CAP 06/19/17 Losartan Potassium* (Cozaar*) 100 Mg Tablet, 100 MG GTB QHS, #30 TAB 06/19/17 Allergies Allergies: Coded Allergies: No Known Allergy (Unverified , 06/19/17) PMhx/Soc History of Surgery: Yes (G-TUBE LUQ, TRACHEOSTOMY SITE) Hx Neurological Disorder: Yes (TIA, CVA) Hx Respiratory Disorders: Yes (TRACHEOSTOMY SITE, CHRONIC RF) Hx Cardiac Disorders: Yes (HTN) Hx Psychiatric Problems: No Hx Miscellaneous Medical Probl: Yes (CELLULITIS, SEPSIS, DM II, PRESSURE ULCERS -ELBOW, SACRUM) Hx Alcohol Use: No Hx Substance Use: No Hx Tobacco Use: No Smoking Status: Unknown if ever smoked FmHx critical patient unable to obtain Physical Exam Vitals Vital Signs Date Time Temp Pulse Resp B/P Pulse Ox O2 Delivery O2 Flow Rate FiO2 08/13/17 20:23 Simple Mask 10 08/13/17 20:23 98.2 124 27 244/118 97 08/13/17 20:23 98.2 128 25 244/118 97 Mask 10.0 Physical Exam General: Acute respiratory distress, in extremis Head: Normocephalic, atraumatic. Eyes: Pupils equally reactive, EOM intact ENT: Dry mucous membranes Neck: Supple, no lymphadenopathy Respiratory: Significant increased work of breathing, diffuse rhonchi bilaterally Cardiovascular: Tachycardia, no murmurs, rubs, or gallops Abdominal: Soft, non-tender, non-distended, no peritoneal signs : Deferred MSK: Limited movement of all 4 extremities, no bony abnormalities Neurologic: Limited exam, and encephalopathic, limited movement of all 4 extremities Skin: No rash, no significant breakdown Psych: Unable to assess Result Diagram: 08/13/17203908/13/171958 Results 24 hrs Laboratory Tests Test 08/13/17 19:59 08/13/17 20:40 Blood Gas Specimen Source Blood arterial Arterial Blood Date Drawn 08/13/2017 9:10:08 PM Arterial Blood pH (Temp corrected) 7.469 Arterial Blood pCO2 (Temp correct) 41.4mmhg Arterial Blood pO2 (Temp corrected) 474.2mmHG Arterial Blood HCO3 29.4mmol/L Arterial Blood Base Excess 5.2mmol/L Arterial Blood Oxygen Saturation 99.7mmHG Girish Test ACCEPTAB Arterial Blood Gas Puncture Site Right Radial Arterial Blood Carboxyhemoglobin 0.3% Arterial Blood Methemoglobin 0.5% Blood Gas A-a O2 Differential 197.4mmHg Oxyhemoglobin Percent 98.9% Total Hemoglobin 11.9g/dl Blood Gas Temperature 37.0C Blood Gas Respiration Rate 16.0 Blood Gas Actual Respiration Rate 16 Blood Gas Modality VENT - AC FiO2 100.0% Blood Gas Tidal Volume 500.0mL Blood Gas Low PEEP Setting 5.0cmH2O Blood Gas Inspiratory Pressure 27.0 Blood Gas Notified Whom BR Blood Gas Notified Time 08/13/2017 9:16:39 PM Sodium Level 143mmol/L Potassium Level 3.7mmol/L Chloride Level 98mmol/L Carbon Dioxide Level 32mmol/L Anion Gap 17 Blood Urea Nitrogen 21mg/dl Creatinine 0.44mg/dl Glucose Level 319mg/dl Calcium Level 8.7mg/dl Total Bilirubin 0.1mg/dl Direct Bilirubin 0.00mg/dl Indirect Bilirubin 0.1mg/dl Aspartate Amino Transf (AST/SGOT) 20IU/L Alanine Aminotransferase (ALT/SGPT) 24IU/L Alkaline Phosphatase 199IU/L Troponin I < 0.012ng/ml Total Protein 7.3g/dl Albumin 4.2g/dl Globulin 3.10g/dl Albumin/Globulin Ratio 1.35 White Blood Count 14.710^3/ul Red Blood Count 4.4910^6/ul Hemoglobin 10.4g/dl Hematocrit 34.9% Mean Corpuscular Volume 77.7fl Mean Corpuscular Hemoglobin 23.2pg Mean Corpuscular Hemoglobin Concent 29.8g/dl Red Cell Distribution Width 19.2% Platelet Count 60167^3/UL Mean Platelet Volume 10.5fl Neutrophils % 79.3% Lymphocytes % 12.4% Monocytes % 3.7% Eosinophils % 2.4% Basophils % 0.6% Nucleated Red Blood Cells % 0.0/100WBC Neutrophils # 11.710^3/ul Lymphocytes # 1.810^3/ul Monocytes # 0.510^3/ul Eosinophils # 0.410^3/ul Basophils # 0.110^3/ul Nucleated Red Blood Cells # 0.010^3/ul Prothrombin Time 12.5Sec Prothrombin Time Ratio 1.0 INR International Normalized Ratio 0.93 Activated Partial Thromboplast Time 26.2Sec Urine Color STRAW Urine Clarity CLEAR Urine pH 8.0 Urine Specific [place] 1.009 Urine Ketones NEGATIVEmg/dL Urine Nitrite NEGATIVEmg/dL Urine Bilirubin NEGATIVEmg/dL Urine Urobilinogen NEGATIVEmg/dL Urine Leukocyte Esterase NEGATIVELeu/ul Urine Microscopic RBC 41/HPF Urine Microscopic WBC 1/HPF Urine Hemoglobin 1+mg/dL Urine Glucose 3+mg/dL Urine Total Protein 2+mg/dl Lactic Acid Level 2.6mmol/L Current Medications Medications (Trade) Dose Ordered Sig/Leah Route PRN Reason Start Time Stop Time Status Last Admin Dose Admin Rocuronium [place] (Zemuron) 100 mg ONCE STAT IV 08/13/17 19:59 08/13/17 20:02 DC 08/13/17 19:54 Etomidate 20 mg 20 mg ONCE STAT IV 08/13/17 19:59 08/13/17 20:02 DC 08/13/17 19:54 Midazolam HCl 50 ml @ 3 mls/hr ONCE STAT IV 08/13/17 19:59 08/14/17 12:38 08/13/17 21:44 Fentanyl (Sublimaze) 100 ml @ 2.5 mls/hr TITRATE ONCE IV 08/13/17 20:00 08/13/17 20:32 DC Sodium Chloride (NS) 2,170 ml BOLUS OVER 2 HOURS STAT IV* 08/13/17 19:59 08/13/17 20:02 DC 08/13/17 19:54 Acetaminophen 650 mg 650 mg ONCE STAT IN 08/13/17 19:59 08/13/17 20:02 DC 08/13/17 22:30 Cefepime HCl 50 ml @ 100 mls/hr ONCE STAT IVPB 08/13/17 19:59 08/13/17 20:28 DC 08/13/17 21:46 Vancomycin HCl 250 ml @ 125 mls/hr ONCE ONCE IVPB 08/13/17 20:00 08/13/17 21:59 DC 08/13/17 21:45 Fentanyl/Dextrose (D5W) 100 ml @ 2.5 mls/hr TITRATE IV 08/13/17 21:00 08/13/17 22:40 Fentanyl (Sublimaze) 100 mcg ONCE ONCE IV 08/13/17 22:30 08/13/17 22:31 DC 08/13/17 22:41 Midazolam HCl (Versed) 2 mg ONCE ONCE IV 08/13/17 22:30 08/13/17 22:31 DC 08/13/17 22:41 Fentanyl (Sublimaze) 100 mcg STK-MED ONCE .ROUTE 08/13/17 22:09 08/13/17 22:10 DC Procedures/MDM EKG, MONITORS, & DIAGNOSTIC IMAGING: EKG: I reviewed and interpreted a 12-lead EKG. Rhythm: Normal sinus rhythm Ectopy: None Intervals: No abnormalities ST segments: No elevations or depressions T waves: No contiguous inversions Chest x-ray: I reviewed and interpreted a 1 view of the chest Mediastinum: No enlargement Cardiac silhouette: No cardiomegaly Airspace: poor respiratory effort, diffuse interstitial process and evidence of bilateral pneumonia, endotracheal tube in good position Bones: No evidence of fracture Repeat chest x-ray for central line Chest x-ray: I reviewed and interpreted a 1 view of the chest Mediastinum: No enlargement Cardiac silhouette: No cardiomegaly Airspace: Her social process right greater than left concerning for pneumonia, triple lumen catheter in excellent position, endotracheal tube in excellent position. Bones: No evidence of fracture PROCEDURES: Intubation Note: Indication: Airway protection Consent: This was an emergent situation, implied consent was observed RSI Medications: Etomidate 20 mg, Rocuronium 100 mg Tube size: 7.0 Secured at: 21 at the lips Procedure: Endotracheal intubation was performed. The patient was preoxygenated with supplemental oxygen, the room was set up with emergent airway equipment including [id number], suction, adjunct airways. Direct visualization of the cords was performed with glide scope laryngoscopy. The initial attempt was with a 7.5 tube, the patient had a difficult airway with limited neck movement and limited jaw opening and oral entry. The patient had a 50% view was significant and prominent arytenoids. The endotracheal tube would not pass through the vocal cords. The initial pass was aborted and the patient had an oral airway was back. She did have desaturation to 60% fairly rapidly but was able to be backed up back to 100%. A second attempt using a 7.0 tube via the Glidescope was performed, insertion of the endotracheal tube through the cords was visualized by the wringer operator. Bilateral breath sounds were auscultated, color change was observed. The tube was then secured in a postintubation chest x-ray was ordered. The patient tolerated the procedure. Central Line Note: Consent: Critical patient Indication: Critically ill patient requiring specialized vascular access for fluid or pressor management Location: Left IJ Procedure: Sterile procedure was observed throughout insertion of the central line. The insertion site was prepped with sterile solution. Ultrasound-guided identification of the vein was performed. Insertion of a needle into the vein was obtained with return of dark, nonpulsatile blood. The wire was then threaded through the needle without complication. The wire was then identified within the vein using ultrasound. A small skin incision was made, the needle was removed intact, dilation of the vein was performed and insertion of a triple lumen catheter was completed. The catheter was then sutured to the skin. All 3 ports david back and flushed without difficulty. A sterile dressing was applied. The patient tolerated the procedure well there were no complications. Emergency Bedside Ultrasound: Indication: Central line Probe Type: Linear Findings: Dynamic ultrasound utilizing compressive technique with both linear and horizontal views, additional images showing wire within the venous system were obtained. The images were saved along with patient information on a paper chart to be scanned into EMR. The patient tolerated the procedure well and there were no complications. A post-line chest x-ray was ordered as indicated. LAB INTERPRETATION: Significant leukocytosis, anemia, hyperglycemia without evidence of diabetic ketoacidosis, lactic acidosis 2.6, negative troponin MEDICAL DECISION MAKING: The patient presents with extremitas, clinical signs and symptoms concerning for healthcare associated pneumonia. The patient is in respiratory distress. Initial concern was the patient need to be suctioned. However, she did not tolerate suctioning very well and had an episode of emesis. Decision was made to intubate the patient given her extremities and inability to protect her airway. Advanced airway was placed as documented above. A triple-lumen catheter was placed given very difficult access and likely need for pressors. The patient almost certainly has healthcare associated pneumonia, no signs of CHF. The patient will require fluid resuscitation, airway protection, broad- spectrum antibiotics. The patient's age and comorbidities, risk of mortality is high. ER COURSE: As documented above upon arrival the patient was in extremis and intubated. A central lumen catheter was placed. The patient was given 30 cc/kg of saline. Blood cultures were taken and the patient was given broad-spectrum antibiotics in the form of vancomycin and cefepime. Post sedation with fentanyl and Versed. The lactic acid is elevated at 2.6 consistent with severe sepsis. The patient has not required pressors at this time. The patient's arrived after these events and he was notified of the patient's critical status. DISPOSITION PLAN: Intensive care unit CONSULTATION: Accepting care team and consultations: I discussed the current laboratory data, diagnostic imaging and emergency care provided. Admitting team: Dr. De La O Admitting team indication: Insurance directed Sepsis Sepsis Documentation: Patient's infectious symptoms have not stabilized and the patient is at risk of rapid decompensation. The patient will be admitted for careful hydration, antibiotic therapy, and infectious source control. SEVERE SEPSIS CRITERIA: Infectious source: Healthcare associated pneumonia End organ damage indicated by: [Lactate > 2.0 mmol/L Acute Resp Failure (sat < 92% w/o oxygen) SEPSIS MANAGEMENT Time of recognition of severe sepsis/septic shock: Upon arrival 3 HOUR BUNDLE Blood cultures x 2 before broad-spectrum antibiotics: Yes 30 ml/kg NS bolus Completed Initial lactate 2.6 Repeat lactate pending repeat SEPTIC SHOCK ASSESSMENT: No lactic acid > 4.0 No persistent hypotension (SBP < 90 or 40 mmHg drop, MAP < 65) despite 30 mL/kg IV fluid bolus VOLUME REASSESSMENT FOR SEPTIC SHOCK: Reevaluation Time: 10:45 PM Temperature of 98.2 pulse of 96 respiratory rate 16 blood pressure 145/69 pulse 100% on the mechanical ventilator Heart Regular rate & rhythm Lungs rhonchi bilaterally Skin Warm & dry Cap Refill Less than 2 seconds Peripheral pulses Radially present PERSISTENT HYPOTENSION TREATMENT: Comfort care No Central line placed as documented above Vasopressor started Not required I considered further perfusion assessment with CVP measurement, SCVO2, bedside ultrasound volume assessment, passive leg raise, trial of further fluid bolus. And proceeded with 30 ml/kg fluid bolus of NSS, broad spectrum antbiotics, and admission. CRITICAL CARE Critical care time 47 minutes Emergent fluid management while maintaining close respiratory support. Provision of immediate and broad-spectrum antibiotic therapy. Simultaneous assessment for possible sources in order to direct targeted therapy. Consideration for invasive and chemical support to prevent cardiopulmonary collapse. Critical care time is independent of procedures performed. Departure Diagnosis: Primary Impression: Healthcare-associated pneumonia Additional Impressions: Severe sepsis Encephalopathy chronic Acute respiratory failure Respiratory failure complication: unspecified whether with hypoxia or hypercapnia Qualified Code: J96.00 - Acute respiratory failure, unspecified whether with hypoxia or hypercapnia Condition: Critical CATALINA NGUYEN MD Aug 13, 2017 23:02
[2017-08-13] MEDS: SOD CHLORIDE 0.9% 1,000 ML IV SCH (23:40)
[2017-08-13] MEDS: LEVETIRACETAM (100 MG/ML) 5ML CUP GTB SCH (23:55)
[2017-08-14] VITALS (26 sets, daily range): BP systolic 97–138; BP diastolic 47–81; PULSE 78–97; RESP 11–17; TEMP 101.2; Ht 152.4 cm; Wt 68.9 kg
[2017-08-14] MEDS ORDERED: GLUCOSE GEL 15 GRAM TUBE BUCCAL PRN (00:30)
[2017-08-14] MEDS ORDERED: GLUCAGON 1 MG INJ IM PRN (00:30)
[2017-08-14] MEDS ORDERED: DEXTROSE 50% 50 ML SYRINGE IV PRN ×2 (00:30)
[2017-08-14] MEDS ORDERED: GLUCOSE GEL 15 GRAM TUBE PO PRN ×2 (00:30)
[2017-08-14] MEDS ORDERED: ACCU-CHEK XX SCH (02:00)
[2017-08-14 04:47] LABS: ABNORMAL IP MESSAGE 1; BASOPHIL # 0.1 10^3/ul (0.0-0.1); BASOPHILS % 0.4 % (0.0-2.0); HEMATOCRIT 32.3 % (37.0-47.0); HEMOGLOBIN 9.6 g/dl (12.0-16.0); LYMPHOCYTES # 0.6 10^3/ul (0.8-2.9); LYMPHOCYTES % 2.5 % (15.0-51.0); MEAN CORPUSCULAR HEMOGLOBIN 23.1 pg (29.0-33.0); MEAN CORPUSCULAR HGB CONC 29.7 g/dl (32.0-37.0); MEAN CORPUSCULAR VOLUME 77.6 fl (82.0-101.0); MEAN PLATELET VOLUME 10.4 fl (7.4-10.4); MONOCYTE # 0.1 10^3/ul (0.3-0.9); MONOCYTES % 0.4 % (0.0-11.0); NEUTROPHIL # 21.1 10^3/ul (1.6-7.5); NEUTROPHILS % 95.4 % (39.0-77.0); PLATELET COUNT 511 10^3/UL (140-415); RED BLOOD COUNT 4.16 10^6/ul (4.20-5.40); RED CELL DISTRIBUTION WIDTH 19.9 % (11.5-14.5); WHITE BLOOD COUNT 22.1 10^3/ul (4.8-10.8)
[2017-08-14 04:52] LABS: POSITIVE DIFF @See below
[2017-08-14 05:09] LABS: ALBUMIN/GLOBULIN RATIO 1.48; BILIRUBIN,INDIRECT 0.1 mg/dl (0-1.1); BILIRUBIN,TOTAL 0.1 mg/dl (0.2-1.3); CALCIUM 8.7 mg/dl (8.4-10.2); CREATININE 0.54 mg/dl (0.44-1.00); POTASSIUM 3.4 mmol/L (3.5-5.1); TOTAL PROTEIN 6.7 g/dl (6.1-8.1)
[2017-08-14] MEDS ORDERED: SOD CHLORIDE 0.9% 500 ML IV ONE (05:30)
[2017-08-14] MEDS: PIPER-TAZO 3.375 GM IV (PMX) 100 ML IVPB SCH ×5 (06:00→23:53)
[2017-08-14] MEDS ORDERED: PANTOPRAZOLE 40 MG INJ IV SCH (06:00)
[2017-08-14 06:02] LABS: AADO2 Arterial 143.4 mmHg (7.0-24.0); Allen Test ACCEPTAB; Arterial Base Excess 2.5 mmol/L (-3.0-3); Arterial COHb 0.3 % (0.0-3.0); Arterial Fraction of Oxyhgb 97.2 % (93.0-99.0); Arterial HCO3 25.8 mmol/L (22.0-26.0); Arterial MetHb 0.4 % (0.0-1.5); Arterial Total Hemglobin 10.5 g/dl (12.0-18.0); MODE VENT - AC
[2017-08-14] MEDS: INSULIN ASPART [NOVOLOG] 3 ML PEN SC SCH ×3 (07:02→12:09)
[2017-08-14 07:09] LABS: CK-MB 0.23 ng/ml (0.0-2.4); TROPONIN-I 0.013 ng/ml (0.00-0.12)
[2017-08-14 07:14] LABS: CREATINE KINASE < 20 IU/L (23-200)
--- NOTE | 2017-08-14 07:58 | HP ---
Date/Time of Note Date/Time of Note DATE: 08/14/17 TIME: 07:37 Assessment/Plan VTE Prophylaxis VTE Prophylaxis Intervention: SCD's Lines/Catheters Urinary Cath still in place: No ([place] BECAME DISLOGED. NEW [place] PLACED) HPI/ROS Admit Date/Time Admit Date/Time Hx of Present Illness This is a 71-year-old female with a history of CVA, respiratory failure with history of prior trach, hypertension, dysphagia with G-tube for feeding who was sent from SN[facility] for shortness of breath. Patient is nonverbal and does not follow commands and as such information is gathered from chart review and from the ER physician. When she presented to the ER, she was short of breath with increased work of breathing and was very lethargic. Shortly after arrival to the ER, patient was intubated. She had a temp of 102.7 when she was in the ER. Her initial BP was 235/106 with a heart rate of 129. Labs shows WBC of 15,000, lactate 2.6 which trended up to 4.5, glucose 319. UA without UTI and a chest x-ray showed no acute findings. Initial ABG showed a pH of 7.47, PCO2 41, PO2 474, bicarb 29 on 100% of FiO2 while she was on the vent. . PMH/Family/Social Past Surgical History Past Surgical Hx: other Social History Smoking Status: Unknown if ever smoked Exam/Review of Systems Vital Signs Vitals Vital Signs Date Time Temp Pulse Resp B/P Pulse Ox O2 Delivery O2 Flow Rate FiO2 08/14/17 07:34 87 16 100 40 08/14/17 07:21 152/58 Mechanical Ventilator 10.0 08/14/17 05:56 101.2 Intake and Output 08/13/17 08/13/17 08/14/17 15:00 23:00 07:00 Output Total 600 ml Balance -600 ml Labs Result Diagram: 08/14/17 04308/14/17 043 Medications Medications Current Medications Fentanyl 1000 mcg/ Dextrose 100 ml @ 2.5 mls/hr TITRATE IV Last administered on 08/13/17 22:40; Admin Dose 2.5 MLS/HR; Start 08/13/17 at 21:00 Sodium Chloride (NS) 1,000 ml @ 100 mls/hr Q10H IV Last administered on 23:40; Admin Dose 100 MLS/HR; Start 08/13/17 at 22:50 Ondansetron HCl (Zofran Inj) 4 mg Q6H PRN IV NAUSEA AND/OR VOMITING; Start at 23:00 Acetaminophen (Tylenol Supp) 650 mg Q4H PRN ID PAIN LEVEL 1-3 OR FEVER Last administered on 08/14/17 05:38; Admin Dose 650 MG; Start 08/13/17 at 23:00 Morphine Sulfate (morphine) 2 mg Q4H PRN IV PAIN LEVEL 7-10; Start 08/13/17 at 23:00 Lorazepam (Ativan) 1 mg Q2H PRN IV ANXIETY; Start 08/13/17 at 23:00 Pantoprazole (Protonix Iv) 40 mg DAILY@06 IV Last administered on 08/14/17 07 :08; Admin Dose 40 MG; Start 08/14/17 at 06:00 Heparin Sodium (Porcine) (Heparin (5000 Units/0.5 ml)) 5,000 unit Q12 SC ; Start 08/14/17 at 09:00 Diagnostic Test (Pha) (Accu-Chek) 1 ea 02 XX ; Start 08/14/17 at 02:00 Insulin Glargine (Lantus) 25 unit QHS SC ; Start 08/13/17 at 23:00 Insulin Aspart NOVOLOG *MODERATE* ALGORI... Q6 SC Last administered on 07:02; Admin Dose 6 UNIT; Start 08/14/17 at 00:00 Piperacillin Sod/ Tazobactam Sod (Zosyn 3.375gm/ 100 ml (Pmx)) 100 ml @ 200 mls /hr Q6 IVPB Last administered on 08/13/17 06:00; Admin Dose 200 MLS/HR; Start 08/13/17 at 00:00 Ascorbic Acid (Vitamin C) 500 mg DAILY GTB ; Start 08/14/17 at 09:00 Clopidogrel Bisulfate (plaVIX) 75 mg DAILY GTB ; Start 08/14/17 at 09:00 Levetiracetam (Keppra Liquid) 500 mg BID GTB Last administered on 08/13/17 23 :55; Admin Dose 500 MG; Start 08/13/17 at 23:00 Zinc Sulfate (Zinc Sulfate) 220 mg DAILY GTB ; Start 08/14/17 at 09:00 Miscellaneous Information 1 ea NOTE XX ; Start 08/14/17 at 00:30 Glucose (Glutose) 15 gm Q15M PRN PO DECREASED GLUCOSE; Start 08/14/17 at 00:30 Glucose (Glutose) 22.5 gm Q15M PRN PO DECREASED GLUCOSE; Start 08/14/17 at 00: 30 Dextrose (D50w Syringe) 25 ml Q15M PRN IV DECREASED GLUCOSE; Start 08/14/17 at 00:30 Dextrose (D50w Syringe) 50 ml Q15M PRN IV DECREASED GLUCOSE; Start 08/14/17 at 00:30 Glucagon (Glucagen) 1 mg Q15M PRN IM DECREASED GLUCOSE; Start 08/14/17 at 00: 30 Glucose 15 gm 15 gm Q15M PRN BUCCAL DECREASED GLUCOSE; Start 08/14/17 at 00:30 Levofloxacin/ Dextrose (Levaquin 500mg/ D5W 100 ml (Pmx)) 100 ml @ 100 mls/hr DAILY IVPB ; Start 08/14/17 at 09:00 JOE JIMENES MD Aug 14, 2017 07:47
[2017-08-14] MEDS ORDERED: LEVOFLOXACIN 500MG/D5W (PMX) 100 ML IVPB SCH (09:00)
[2017-08-14] MEDS: CLOPIDOGREL 75 MG TAB GTB SCH (09:28)
[2017-08-14] MEDS: LEVETIRACETAM (100 MG/ML) 5ML CUP GTB SCH ×2 (09:28→20:48)
[2017-08-14] MEDS: ZINC SULFATE 220 MG CAP GTB SCH (09:28)
[2017-08-14] MEDS: SOD CHLORIDE 0.9% 1,000 ML IV SCH ×2 (09:28→20:49)
[2017-08-14] MEDS: ASCORBIC ACID 500 MG TAB GTB SCH (09:29)
[2017-08-14] MEDS: HEPARIN 5,000 UNIT/0.5 ML VIAL SC SCH ×2 (09:31→20:52)
[2017-08-14 10:49] LABS: CREATINE KINASE 21 IU/L (23-200)
[2017-08-14 11:03] LABS: CK-MB < 0.22 ng/ml (0.0-2.4); TROPONIN-I < 0.012 ng/ml (0.00-0.12)
--- NOTE | 2017-08-14 12:04 | CONS ---
Date/Time of Note Date/Time of Note DATE: 08/14/17 TIME: 12:00 Assessment/Plan Assessment/Plan Additional Assessment/Plan Ventilator setting; AC of 16, tidal volume 500, PEEP of 5, 40% FiO2. Patient is currently on fentanyl drip at 25 mics per hour. Patient is off Versed drip. Chest x-ray was reviewed from today which is showing right upper lobe infiltrative changes. Assessment and recommendations; 1. Patient admitted with pneumonia involving right upper lobe, possibly aspiration. Currently on appropriate antibiotic regimen. 2. Based upon medical record, patient apparently has advanced dementia. 3. Etiology for prior tracheostomy is not available at this time. Continue current supportive care. Will obtain follow-up chest x-ray in 24 hours. Continue current antibiotic regimen. Consultation Date/Type/Reason Admit Date/Time Date of Consultation: Aug 14, 2017 Type of Consultation: Pulmonary/critical care Reason for Consultation Pulmonary consultation requested for evaluation of respiratory failure. Next History of present illness; patient is a 71-year-old lady who was transferred over to the hospital from [facility] with the nursing staff noted shortness of breath. Upon evaluation patient was in respiratory failure and was intubated by the ER physician. By the time I saw the patient the patient is orally intubated. History was obtained from medical records. Past medical history; 1. Patient with history of dementia per medical record. 2. Prior tracheostomy with subsequent decannulation. 3. Chronic dysphagia, status post G-tube placement. Medications; reviewed. Allergies; none. Social history, family history, occupational histories are not available. Review systems; unable to be obtained. General exam; elderly woman, orally intubated, sedated, currently in no distress. Past Surgical History Past Surgical Hx: other Social History Smoking Status: Unknown if ever smoked Exam/Review of Systems Vital Signs Vitals Vital Signs Date Time Temp Pulse Resp B/P Pulse Ox O2 Delivery O2 Flow Rate FiO2 08/14/17 11:02 91 16 100 40 08/14/17 11:00 138/61 Mechanical Ventilator 08/14/17 08:09 98.9 08/14/17 07:21 10.0 Intake and Output 08/13/17 08/13/17 08/14/17 15:00 23:00 07:00 Output Total 600 ml Balance -600 ml Exam HEENT exam; supple neck, no JVD. No lymphadenopathy. Midline trachea. No thyromegaly. There is a well-healed scar in the suprasternal notch. Orally intubated. Chest exam; diminished but clear breath sounds. S1-S2 audible, no murmurs. Regular rhythm. Abdomen exam; soft, G-tube in place. No organomegaly. Bowel sounds audible. Extremity exam; no peripheral edema. [employer] exam; patient is sedated. Results Result Diagram: 08/14/17 0430 08/14/17 0430 Results 24 hrs Laboratory Tests Test 08/13/17 19:59 08/13/17 20:40 08/13/17 22:56 08/14/17 03:05 Blood Gas Specimen Source Blood arterial Arterial Blood Date Drawn 08/13/2017 9:10:08 PM Arterial Blood pH (Temp corrected) 7.469 H Arterial Blood pCO2 (Temp correct) 41.4 Arterial Blood pO2 (Temp corrected) 474.2 H Arterial Blood HCO3 29.4 H Arterial Blood Base Excess 5.2 H Arterial Blood Oxygen Saturation 99.7 H Girish Test ACCEPTAB Arterial Blood Gas Puncture Site Right Radial Arterial Blood Carboxyhemoglobin 0.3 Arterial Blood Methemoglobin 0.5 Blood Gas A-a O2 Differential 197.4 H Oxyhemoglobin Percent 98.9 Total Hemoglobin 11.9 L Blood Gas Temperature 37.0 Blood Gas Respiration Rate 16.0 Blood Gas Actual Respiration Rate 16 Blood Gas Modality VENT - AC FiO2 100.0 Blood Gas Tidal Volume 500.0 Blood Gas Low PEEP Setting 5.0 Blood Gas Inspiratory Pressure 27.0 Blood Gas Notified Whom BR Blood Gas Notified Time 08/13/2017 9:16:39 PM Sodium Level 143 Potassium Level 3.7 Chloride Level 98 Carbon Dioxide Level 32 H Anion Gap 17 H Blood Urea Nitrogen 21 H Creatinine 0.44 Glucose Level 319 H Calcium Level 8.7 Total Bilirubin 0.1 L Direct Bilirubin 0.00 Indirect Bilirubin 0.1 Aspartate Amino Transf (AST/SGOT) 20 Alanine Aminotransferase (ALT/SGPT) 24 Alkaline Phosphatase 199 H Troponin I < 0.012 Total Protein 7.3 Albumin 4.2 Globulin 3.10 Albumin/Globulin Ratio 1.35 White Blood Count 14.7 #H Red Blood Count 4.49 Hemoglobin 10.4 L Hematocrit 34.9 L Mean Corpuscular Volume 77.7 L Mean Corpuscular Hemoglobin 23.2 L Mean Corpuscular Hemoglobin Concent 29.8 L Red Cell Distribution Width 19.2 H Platelet Count 531 #H Mean Platelet Volume 10.5 H Neutrophils % 79.3 H Lymphocytes % 12.4 L Monocytes % 3.7 Eosinophils % 2.4 Basophils % 0.6 Nucleated Red Blood Cells % 0.0 Neutrophils # 11.7 H Lymphocytes # 1.8 Monocytes # 0.5 Eosinophils # 0.4 Basophils # 0.1 Nucleated Red Blood Cells # 0.0 Prothrombin Time 12.5 # Prothrombin Time Ratio 1.0 INR International Normalized Ratio 0.93 Activated Partial Thromboplast Time 26.2 Urine Color STRAW Urine Clarity CLEAR Urine pH 8.0 Urine Specific [place] 1.009 Urine Ketones NEGATIVE Urine Nitrite NEGATIVE Urine Bilirubin NEGATIVE Urine Urobilinogen NEGATIVE Urine Leukocyte Esterase NEGATIVE Urine Microscopic RBC 41 H Urine Microscopic WBC 1 Urine Hemoglobin 1+ H Urine Glucose 3+ H Urine Total Protein 2+ H Lactic Acid Level 2.6 *H 3.4 *H 4.5 *H Test 08/14/17 04:30 08/14/17 05:00 08/14/17 06:58 08/14/17 10:07 White Blood Count 22.1 #H Red Blood Count 4.16 L Hemoglobin 9.6 L Hematocrit 32.3 L Mean Corpuscular Volume 77.6 L Mean Corpuscular Hemoglobin 23.1 L Mean Corpuscular Hemoglobin Concent 29.7 L Red Cell Distribution Width 19.9 H Platelet Count 511 H Mean Platelet Volume 10.4 Neutrophils % 95.4 H Lymphocytes % 2.5 L Monocytes % 0.4 Eosinophils % 0.0 Basophils % 0.4 Nucleated Red Blood Cells % 0.0 Neutrophils # 21.1 H Lymphocytes # 0.6 L Monocytes # 0.1 L Eosinophils # 0.0 Basophils # 0.1 Nucleated Red Blood Cells # 0.0 Sodium Level 146 H Potassium Level 3.4 L Chloride Level 104 Carbon Dioxide Level 27 Anion Gap 18 H Blood Urea Nitrogen 21 H Creatinine 0.54 Glucose Level 210 # Calcium Level 8.7 Total Bilirubin 0.1 L Direct Bilirubin 0.00 Indirect Bilirubin 0.1 Aspartate Amino Transf (AST/SGOT) 25 Alanine Aminotransferase (ALT/SGPT) 25 Alkaline Phosphatase 184 H Creatine Kinase < 20 L 21 L Creatine Kinase Index 1.0 Creatinine Kinase MB (Mass) 0.23 < 0.22 Troponin I 0.013 < 0.012 Total Protein 6.7 Albumin 4.0 Globulin 2.70 Albumin/Globulin Ratio 1.48 Blood Gas Specimen Source Blood arterial Arterial Blood Date Drawn 08/14/2017 5:57:21 AM Arterial Blood pH (Temp corrected) 7.486 H Arterial Blood pCO2 (Temp correct) 34.9 L Arterial Blood pO2 (Temp corrected) 101.7 H Arterial Blood HCO3 25.8 Arterial Blood Base Excess 2.5 Arterial Blood Oxygen Saturation 97.9 Girish Test ACCEPTAB Arterial Blood Gas Puncture Site Right Radial Arterial Blood Carboxyhemoglobin 0.3 Arterial Blood Methemoglobin 0.4 Blood Gas A-a O2 Differential 143.4 H Oxyhemoglobin Percent 97.2 Total Hemoglobin 10.5 L Blood Gas Temperature 37.0 Blood Gas Respiration Rate 16.0 Blood Gas Actual Respiration Rate 18 Blood Gas Modality VENT - AC FiO2 40.0 Blood Gas Tidal Volume 500.0 Blood Gas Low PEEP Setting 5.0 Blood Gas Inspiratory Pressure 37.0 Blood Gas Notified Whom BR Blood Gas Notified Time 08/14/2017 6:02:02 AM Bedside Glucose 258 H Lactic Acid Level 4.2 *H Medications Medications Current Medications Fentanyl 1000 mcg/ Dextrose 100 ml @ 2.5 mls/hr TITRATE IV Last administered on 08/13/17 22:40; Admin Dose 2.5 MLS/HR; Start 08/13/17 at 21:00 Sodium Chloride (NS) 1,000 ml @ 100 mls/hr Q10H IV Last administered on 09:28; Admin Dose 100 MLS/HR; Start 08/13/17 at 22:50 Ondansetron HCl (Zofran Inj) 4 mg Q6H PRN IV NAUSEA AND/OR VOMITING; Start at 23:00 Acetaminophen (Tylenol Supp) 650 mg Q4H PRN MD PAIN LEVEL 1-3 OR FEVER Last administered on 08/14/17 05:38; Admin Dose 650 MG; Start 08/13/17 at 23:00 Morphine Sulfate (morphine) 2 mg Q4H PRN IV PAIN LEVEL 7-10; Start 08/13/17 at 23:00 Lorazepam (Ativan) 1 mg Q2H PRN IV ANXIETY; Start 08/13/17 at 23:00 Pantoprazole (Protonix Iv) 40 mg DAILY@06 IV Last administered on 08/14/17 07 :08; Admin Dose 40 MG; Start 08/14/17 at 06:00 Heparin Sodium (Porcine) (Heparin (5000 Units/0.5 ml)) 5,000 unit Q12 SC Last administered on 08/14/17 09:31; Admin Dose 5,000 UNIT; Start 08/14/17 at 09: 00 Diagnostic Test (Pha) (Accu-Chek) 1 ea 02 XX ; Start 08/14/17 at 02:00 Insulin Glargine (Lantus) 25 unit QHS SC ; Start 08/13/17 at 23:00 Insulin Aspart NOVOLOG *MODERATE* ALGORI... Q6 SC Last administered on 07:02; Admin Dose 6 UNIT; Start 08/14/17 at 00:00 Piperacillin Sod/ Tazobactam Sod (Zosyn 3.375gm/ 100 ml (Pmx)) 100 ml @ 200 mls /hr Q6 IVPB Last administered on 08/13/17 06:00; Admin Dose 200 MLS/HR; Start 08/13/17 at 00:00 Ascorbic Acid (Vitamin C) 500 mg DAILY GTB Last administered on 08/14/17 09: 29; Admin Dose 500 MG; Start 08/14/17 at 09:00 Clopidogrel Bisulfate (plaVIX) 75 mg DAILY GTB Last administered on 08/14/17 09:28; Admin Dose 75 MG; Start 08/14/17 at 09:00 Levetiracetam (Keppra Liquid) 500 mg BID GTB Last administered on 08/14/17 09 :28; Admin Dose 500 MG; Start 08/13/17 at 23:00 Zinc Sulfate (Zinc Sulfate) 220 mg DAILY GTB Last administered on 08/14/17 09 :28; Admin Dose 220 MG; Start 08/14/17 at 09:00 Miscellaneous Information 1 ea NOTE XX ; Start 08/14/17 at 00:30 Glucose (Glutose) 15 gm Q15M PRN PO DECREASED GLUCOSE; Start 08/14/17 at 00:30 Glucose (Glutose) 22.5 gm Q15M PRN PO DECREASED GLUCOSE; Start 08/14/17 at 00: 30 Dextrose (D50w Syringe) 25 ml Q15M PRN IV DECREASED GLUCOSE; Start 08/14/17 at 00:30 Dextrose (D50w Syringe) 50 ml Q15M PRN IV DECREASED GLUCOSE; Start 08/14/17 at 00:30 Glucagon (Glucagen) 1 mg Q15M PRN IM DECREASED GLUCOSE; Start 08/14/17 at 00: 30 Glucose 15 gm 15 gm Q15M PRN BUCCAL DECREASED GLUCOSE; Start 08/14/17 at 00:30 Levofloxacin/ Dextrose 100 ml @ 100 mls/hr DAILY IVPB Last administered on 09:28; Admin Dose 100 MLS/HR; Start 08/14/17 at 09:00 Vancomycin HCl/ Dextrose/Water (Vancocin/D5W) 150 ml @ 75 mls/hr Q12H IVPB ; Start 08/14/17 at 12:00 ADRIANA TOVAR Aug 14, 2017 12:04
[2017-08-14] MEDS: VANCOMYCIN 750 MG in DEXTROSE 5% 150 ML IVPB SCH ×2 (12:05→23:53)
[2017-08-14] MEDS ORDERED: ALBUTEROL/IPRATROPIUM (NEB) 3 ML AMP INH PRN (13:00)
--- NOTE | 2017-08-14 13:37 | PN ---
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 will dc levoflox. 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 She was sent back to her SNF with a plan for 2 weeks total IV abx. This morning she is intubated and does not appear to be tracking to voice Exam/Review of Systems Vital Signs Vitals Vital Signs Date Time Temp Pulse Resp B/P Pulse Ox O2 Delivery O2 Flow Rate FiO2 08/14/17 13:20 84 16 100 40 08/14/17 11:00 138/61 Mechanical Ventilator 08/14/17 08:09 98.9 08/14/17 07:21 10.0 Intake and Output 08/13/17 08/13/17 08/14/17 15:00 23:00 07:00 Output Total 600 ml Balance -600 ml Exam nad intubated no mrg lungs clear abd soft no rashes personal review of admit XR notable for LLL haziness Results Result Diagram: 08/14/17 0430 08/14/17 0430 Results 24 hrs Laboratory Tests Test 08/13/17 19:59 08/13/17 20:40 08/13/17 22:56 08/14/17 03:05 Blood Gas Specimen Source Blood arterial Arterial Blood Date Drawn 08/13/2017 9:10:08 PM Arterial Blood pH (Temp corrected) 7.469 H Arterial Blood pCO2 (Temp correct) 41.4 Arterial Blood pO2 (Temp corrected) 474.2 H Arterial Blood HCO3 29.4 H Arterial Blood Base Excess 5.2 H Arterial Blood Oxygen Saturation 99.7 H Girish Test ACCEPTAB Arterial Blood Gas Puncture Site Right Radial Arterial Blood Carboxyhemoglobin 0.3 Arterial Blood Methemoglobin 0.5 Blood Gas A-a O2 Differential 197.4 H Oxyhemoglobin Percent 98.9 Total Hemoglobin 11.9 L Blood Gas Temperature 37.0 Blood Gas Respiration Rate 16.0 Blood Gas Actual Respiration Rate 16 Blood Gas Modality VENT - AC FiO2 100.0 Blood Gas Tidal Volume 500.0 Blood Gas Low PEEP Setting 5.0 Blood Gas Inspiratory Pressure 27.0 Blood Gas Notified Whom BR Blood Gas Notified Time 08/13/2017 9:16:39 PM Sodium Level 143 Potassium Level 3.7 Chloride Level 98 Carbon Dioxide Level 32 H Anion Gap 17 H Blood Urea Nitrogen 21 H Creatinine 0.44 Glucose Level 319 H Calcium Level 8.7 Total Bilirubin 0.1 L Direct Bilirubin 0.00 Indirect Bilirubin 0.1 Aspartate Amino Transf (AST/SGOT) 20 Alanine Aminotransferase (ALT/SGPT) 24 Alkaline Phosphatase 199 H Troponin I < 0.012 Total Protein 7.3 Albumin 4.2 Globulin 3.10 Albumin/Globulin Ratio 1.35 White Blood Count 14.7 #H Red Blood Count 4.49 Hemoglobin 10.4 L Hematocrit 34.9 L Mean Corpuscular Volume 77.7 L Mean Corpuscular Hemoglobin 23.2 L Mean Corpuscular Hemoglobin Concent 29.8 L Red Cell Distribution Width 19.2 H Platelet Count 531 #H Mean Platelet Volume 10.5 H Neutrophils % 79.3 H Lymphocytes % 12.4 L Monocytes % 3.7 Eosinophils % 2.4 Basophils % 0.6 Nucleated Red Blood Cells % 0.0 Neutrophils # 11.7 H Lymphocytes # 1.8 Monocytes # 0.5 Eosinophils # 0.4 Basophils # 0.1 Nucleated Red Blood Cells # 0.0 Prothrombin Time 12.5 # Prothrombin Time Ratio 1.0 INR International Normalized Ratio 0.93 Activated Partial Thromboplast Time 26.2 Urine Color STRAW Urine Clarity CLEAR Urine pH 8.0 Urine Specific [place] 1.009 Urine Ketones NEGATIVE Urine Nitrite NEGATIVE Urine Bilirubin NEGATIVE Urine Urobilinogen NEGATIVE Urine Leukocyte Esterase NEGATIVE Urine Microscopic RBC 41 H Urine Microscopic WBC 1 Urine Hemoglobin 1+ H Urine Glucose 3+ H Urine Total Protein 2+ H Lactic Acid Level 2.6 *H 3.4 *H 4.5 *H Test 08/14/17 04:30 08/14/17 05:00 08/14/17 06:58 08/14/17 10:07 White Blood Count 22.1 #H Red Blood Count 4.16 L Hemoglobin 9.6 L Hematocrit 32.3 L Mean Corpuscular Volume 77.6 L Mean Corpuscular Hemoglobin 23.1 L Mean Corpuscular Hemoglobin Concent 29.7 L Red Cell Distribution Width 19.9 H Platelet Count 511 H Mean Platelet Volume 10.4 Neutrophils % 95.4 H Lymphocytes % 2.5 L Monocytes % 0.4 Eosinophils % 0.0 Basophils % 0.4 Nucleated Red Blood Cells % 0.0 Neutrophils # 21.1 H Lymphocytes # 0.6 L Monocytes # 0.1 L Eosinophils # 0.0 Basophils # 0.1 Nucleated Red Blood Cells # 0.0 Sodium Level 146 H Potassium Level 3.4 L Chloride Level 104 Carbon Dioxide Level 27 Anion Gap 18 H Blood Urea Nitrogen 21 H Creatinine 0.54 Glucose Level 210 # Calcium Level 8.7 Total Bilirubin 0.1 L Direct Bilirubin 0.00 Indirect Bilirubin 0.1 Aspartate Amino Transf (AST/SGOT) 25 Alanine Aminotransferase (ALT/SGPT) 25 Alkaline Phosphatase 184 H Creatine Kinase < 20 L 21 L Creatine Kinase Index 1.0 Creatinine Kinase MB (Mass) 0.23 < 0.22 Troponin I 0.013 < 0.012 Total Protein 6.7 Albumin 4.0 Globulin 2.70 Albumin/Globulin Ratio 1.48 Blood Gas Specimen Source Blood arterial Arterial Blood Date Drawn 08/14/2017 5:57:21 AM Arterial Blood pH (Temp corrected) 7.486 H Arterial Blood pCO2 (Temp correct) 34.9 L Arterial Blood pO2 (Temp corrected) 101.7 H Arterial Blood HCO3 25.8 Arterial Blood Base Excess 2.5 Arterial Blood Oxygen Saturation 97.9 Girish Test ACCEPTAB Arterial Blood Gas Puncture Site Right Radial Arterial Blood Carboxyhemoglobin 0.3 Arterial Blood Methemoglobin 0.4 Blood Gas A-a O2 Differential 143.4 H Oxyhemoglobin Percent 97.2 Total Hemoglobin 10.5 L Blood Gas Temperature 37.0 Blood Gas Respiration Rate 16.0 Blood Gas Actual Respiration Rate 18 Blood Gas Modality VENT - AC FiO2 40.0 Blood Gas Tidal Volume 500.0 Blood Gas Low PEEP Setting 5.0 Blood Gas Inspiratory Pressure 37.0 Blood Gas Notified Whom BR Blood Gas Notified Time 08/14/2017 6:02:02 AM Bedside Glucose 258 H Lactic Acid Level 4.2 *H Test 08/14/17 11:59 Bedside Glucose 264 H Medications Medications Current Medications Fentanyl 1000 mcg/ Dextrose 100 ml @ 2.5 mls/hr TITRATE IV Last administered on 08/13/17 22:40; Admin Dose 2.5 MLS/HR; Start 08/13/17 at 21:00 Sodium Chloride (NS) 1,000 ml @ 100 mls/hr Q10H IV Last administered on 09:28; Admin Dose 100 MLS/HR; Start 08/13/17 at 22:50 Ondansetron HCl (Zofran Inj) 4 mg Q6H PRN IV NAUSEA AND/OR VOMITING; Start at 23:00 Acetaminophen (Tylenol Supp) 650 mg Q4H PRN AR PAIN LEVEL 1-3 OR FEVER Last administered on 08/14/17 05:38; Admin Dose 650 MG; Start 08/13/17 at 23:00 Morphine Sulfate (morphine) 2 mg Q4H PRN IV PAIN LEVEL 7-10; Start 08/13/17 at 23:00 Lorazepam (Ativan) 1 mg Q2H PRN IV ANXIETY; Start 08/13/17 at 23:00 Pantoprazole (Protonix Iv) 40 mg DAILY@06 IV Last administered on 08/14/17 07 :08; Admin Dose 40 MG; Start 08/14/17 at 06:00 Heparin Sodium (Porcine) (Heparin (5000 Units/0.5 ml)) 5,000 unit Q12 SC Last administered on 08/14/17 09:31; Admin Dose 5,000 UNIT; Start 08/14/17 at 09: 00 Diagnostic Test (Pha) (Accu-Chek) 1 ea 02 XX ; Start 08/14/17 at 02:00 Insulin Glargine (Lantus) 25 unit QHS SC ; Start 08/13/17 at 23:00 Insulin Aspart NOVOLOG *MODERATE* ALGORI... Q6 SC Last administered on 12:09; Admin Dose 6 UNIT; Start 08/14/17 at 00:00 Piperacillin Sod/ Tazobactam Sod (Zosyn 3.375gm/ 100 ml (Pmx)) 100 ml @ 200 mls /hr Q6 IVPB Last administered on 08/14/17 12:05; Admin Dose 200 MLS/HR; Start 08/13/17 at 00:00 Ascorbic Acid (Vitamin C) 500 mg DAILY GTB Last administered on 08/14/17 09: 29; Admin Dose 500 MG; Start 08/14/17 at 09:00 Clopidogrel Bisulfate (plaVIX) 75 mg DAILY GTB Last administered on 08/14/17 09:28; Admin Dose 75 MG; Start 08/14/17 at 09:00 Levetiracetam (Keppra Liquid) 500 mg BID GTB Last administered on 08/14/17 09 :28; Admin Dose 500 MG; Start 08/13/17 at 23:00 Zinc Sulfate (Zinc Sulfate) 220 mg DAILY GTB Last administered on 08/14/17 09 :28; Admin Dose 220 MG; Start 08/14/17 at 09:00 Miscellaneous Information 1 ea NOTE XX ; Start 08/14/17 at 00:30 Glucose (Glutose) 15 gm Q15M PRN PO DECREASED GLUCOSE; Start 08/14/17 at 00:30 Glucose (Glutose) 22.5 gm Q15M PRN PO DECREASED GLUCOSE; Start 08/14/17 at 00: 30 Dextrose (D50w Syringe) 25 ml Q15M PRN IV DECREASED GLUCOSE; Start 08/14/17 at 00:30 Dextrose (D50w Syringe) 50 ml Q15M PRN IV DECREASED GLUCOSE; Start 08/14/17 at 00:30 Glucagon (Glucagen) 1 mg Q15M PRN IM DECREASED GLUCOSE; Start 08/14/17 at 00: 30 Glucose 15 gm 15 gm Q15M PRN BUCCAL DECREASED GLUCOSE; Start 08/14/17 at 00:30 Levofloxacin/ Dextrose 100 ml @ 100 mls/hr DAILY IVPB Last administered on 09:28; Admin Dose 100 MLS/HR; Start 08/14/17 at 09:00 Vancomycin HCl/ Dextrose/Water (Vancocin/D5W) 150 ml @ 75 mls/hr Q12H IVPB Last administered on 08/14/17 12:05; Admin Dose 75 MLS/HR; Start 08/14/17 at 12:00 Miscellaneous Information (*Rx Drug Level Order Reminder*) 1 ONCE ONCE XX ; Start 08/15/17 at 11:00; Stop 08/15/17 at 11:01 Bisacodyl (Dulcolax) 10 mg DAILY PRN PO CONSTIPATION; Start 08/14/17 at 14:00 ; Status UNV Albuterol/ Ipratropium (Duoneb) 3 ml Q4 PRN INH SHORTNESS OF BREATH; Start at 14:00; Status UNV Losartan Potassium (Cozaar) 100 mg QHS GTB ; Start 08/14/17 at 21:00; Status UNV Magnesium Hydroxide (Milk Of Mag) 30 ml DAILY PRN GTB CONSTIPATION; Start at 14:00; Status UNV Tramadol HCl (Ultram) 50 mg Q12 GTB ; Start 08/14/17 at 21:00; Status UNV Miscellaneous Information (* Miscellaneous Pharmacy Order) Discontinue current oral sulfonylur... ONCE ONCE XX ; Start 08/14/17 at 14:00; Stop 08/14/17 at 14:01; Status UNV Diagnostic Test (Pha) (Accu-Chek) 1 ea 02 XX ; Start 08/15/17 at 02:00; Status UNV Miscellaneous Information (* Miscellaneous Pharmacy Order) HYPOGLYCEMIA PROTOCOL w... ONCE ONCE XX ; Start 08/14/17 at 14:00; Stop 08/14/17 at 14:01 ; Status UNV Miscellaneous Information (* Miscellaneous Pharmacy Order) Discontinue all previ... ONCE ONCE XX ; Start 08/14/17 at 14:00; Stop 08/14/17 at 14:01; Status UNV Diagnostic Test (Pha) (Accu-Chek) 1 ea 02 XX ; Start 08/15/17 at 02:00; Status UNV LUDA MORENO MD Aug 14, 2017 13:37 Losartan Potassium (Cozaar) 100 mg QHS GTB ; Start 08/14/17 at 21:00; Status UNV Magnesium Hydroxide (Milk Of Mag) 30 ml DAILY PRN GTB CONSTIPATION; Start at 14:00; Status UNV Tramadol HCl (Ultram) 50 mg Q12 GTB ; Start 08/14/17 at 21:00; Status UNV Miscellaneous Information (* Miscellaneous Pharmacy Order) Discontinue current oral sulfonylur... ONCE ONCE XX ; Start 08/14/17 at 14:00; Stop 08/14/17 at 14:01; Status UNV Diagnostic Test (Pha) (Accu-Chek) 1 ea XX ; Start 08/15/17 at 02:00; Status UNV Miscellaneous Information (* Miscellaneous Pharmacy Order) HYPOGLYCEMIA PROTOCOL w... ONCE ONCE XX ; Start 08/14/17 at 14:00; Stop 08/14/17 at 14:01 ; Status UNV Miscellaneous Information (* Miscellaneous Pharmacy Order) Discontinue all previ... ONCE ONCE XX ; Start 08/14/17 at 14:00; Stop 08/14/17 at 14:01; Status UNV Diagnostic Test (Pha) (Accu-Chek) 1 XX ; Start 08/15/17 at 02:00; Status UNV LUDA MORENO MD Aug 14, 2017 13:37
[2017-08-14] MEDS ORDERED: BISACODYL (EC) 5 MG TAB PO PRN (14:00)
[2017-08-14] MEDS ORDERED: PENDING SANTYL ORDER FOR WOUND CARE XX PRN (14:30)
[2017-08-14] MEDS ORDERED: INSULIN ASPART [NOVOLOG] 3 ML PEN SC SCH (17:35)
[2017-08-14] MEDS: LOSARTAN 50 MG TAB GTB SCH (20:48)
[2017-08-14] MEDS: traMADol 50 MG TAB GTB SCH (20:48)
[2017-08-15] VITALS (36 sets, daily range): BP systolic 86–155; BP diastolic 49–90; PULSE 69–99; RESP 13–25
[2017-08-15] MEDS ORDERED: ACCU-CHEK XX SCH ×2 (02:00)
[2017-08-15] MEDS: SOD CHLORIDE 0.9% 1,000 ML IV SCH (05:02)
[2017-08-15] MEDS: LANSOPRAZOLE 30 MG CAP GTB SCH (05:02)
[2017-08-15] MEDS: PIPER-TAZO 3.375 GM IV (PMX) 100 ML IVPB SCH ×3 (05:02→18:03)
[2017-08-15 05:07] LABS: BASOPHILS % 0.4 % (0.0-2.0); EOSINOPHILS # 0.4 10^3/ul (0.0-0.5); EOSINOPHILS % 3.9 % (0.0-7.0); HEMATOCRIT 26.4 % (37.0-47.0); HEMOGLOBIN 7.8 g/dl (12.0-16.0); LYMPHOCYTES # 1.4 10^3/ul (0.8-2.9); LYMPHOCYTES % 15.1 % (15.0-51.0); MEAN CORPUSCULAR HEMOGLOBIN 22.5 pg (29.0-33.0); MEAN CORPUSCULAR HGB CONC 29.5 g/dl (32.0-37.0); MEAN CORPUSCULAR VOLUME 76.1 fl (82.0-101.0); MEAN PLATELET VOLUME 11.2 fl (7.4-10.4); MONOCYTE # 0.4 10^3/ul (0.3-0.9); MONOCYTES % 4.8 % (0.0-11.0); NEUTROPHIL # 6.8 10^3/ul (1.6-7.5); NEUTROPHILS % 75.2 % (39.0-77.0); PLATELET COUNT 358 10^3/UL (140-415); RED BLOOD COUNT 3.47 10^6/ul (4.20-5.40)
[2017-08-15 05:31] LABS: CALCIUM 8.3 mg/dl (8.4-10.2); CREATININE 0.53 mg/dl (0.44-1.00); POTASSIUM 3.5 mmol/L (3.5-5.1)
[2017-08-15] MEDS ORDERED: INSULIN DETEMIR [LEVEMIR] 3ML CART SC SCH (07:35)
--- NOTE | 2017-08-15 08:44 | RADRPT ---
PROCEDURE: XR Chest. CLINICAL INDICATION: Pneumonia TECHNIQUE: An AP view of the chest was obtained. COMPARISON: Chest x-ray dated 08/13/2017 FINDINGS: The endotracheal tube tip is approximately 3.7 cm above the daksha. There is a left internal jugul ar central venous catheter with tip near the cavoatrial junction. Lung volumes are low. There is prominence of the interstitial markings. There is right basilar atel ectasis. No pleural effusion or pneumothorax is seen. The cardiomediastinal silhouette is within no rmal limits for size. Calcifications are seen within the aortic arch. The osseous structures demons trate senescent changes. IMPRESSION: 1. Mild prominence of the interstitial markings, may reflect mild underlying interstitial edema or chronic lung changes. No significant interval change. 2. Low lung volumes with bibasilar atelectasis. 3. Aortic atherosclerosis. 4. Tubes and lines, as described above. RPTAT: HH .Marie Loza MD, MD Date Time Electronically viewed and signed by .Marie Loza MD, on 08/15/2017 08:43 .G/
[2017-08-15] MEDS: HEPARIN 5,000 UNIT/0.5 ML VIAL SC SCH ×2 (09:43→20:49)
[2017-08-15] MEDS: FENTAnyl 1,000 MCG in DEXTROSE 5% 80 ML IV SCH (09:43)
[2017-08-15] MEDS: INSULIN DETEMIR [LEVEMIR] 3ML CART SC SCH (09:44)
[2017-08-15] MEDS: ZINC SULFATE 220 MG CAP GTB SCH (09:45)
[2017-08-15] MEDS: ASCORBIC ACID 500 MG TAB GTB SCH (09:45)
[2017-08-15] MEDS: LEVETIRACETAM (100 MG/ML) 5ML CUP GTB SCH ×2 (09:45→20:46)
[2017-08-15] MEDS: CLOPIDOGREL 75 MG TAB GTB SCH (09:45)
[2017-08-15] MEDS: traMADol 50 MG TAB GTB SCH (09:53)
--- NOTE | 2017-08-15 11:19 | CONS ---
Date/Time of Note Date/Time of Note DATE: 08/15/17 TIME: 11:16 Assessment/Plan Assessment/Plan Additional Assessment/Plan Chest x-ray was reviewed from today which is essentially unremarkable. Patient is currently on assist control of 16, tidal volume 500, PEEP of 5, 30% FiO2. Assessment and recommendations; 1. Patient admitted with bronchopneumonia leading to respiratory failure. 2. Advanced dementia. 3. Chronic dysphagia, status post G-tube placement. 4. Prior history of respiratory failure as evidenced by tracheostomy scar. 5. Anemia. Continue to hold sedation. Weaning from ventilator with depend upon adequate mental status recovery. Patient was briefly assessed at bedside on CPAP mode and currently does not meet weaning criteria from ventilator. Meanwhile continue supportive care. Consultation Date/Type/Reason Admit Date/Time Aug 13, 2017 at 22:40 Initial Consult Date 08/14/17 Type of Consultation: Pulmonary/critical care 24 HR Interval Summary Free Text/Dictation Patient's condition remains critical. Still requiring full invasive mechanical ventilation. Patient has remained hemodynamically stable. General exam; elderly woman, orally intubated, awake but unresponsive. Currently no distress. Exam/Review of Systems Vital Signs Vitals Vital Signs Date Time Temp Pulse Resp B/P Pulse Ox O2 Delivery O2 Flow Rate FiO2 08/15/17 08:00 99.1 82 16 121/60 100 Mechanical Ventilator 08/15/17 05:15 30 08/14/17 07:21 10.0 Intake and Output 08/14/17 08/14/17 08/15/17 15:00 23:00 07:00 Intake Total 971.0 ml 712.5 ml 1067.5 ml Output Total 240 ml 270 ml 240 ml Balance 731.0 ml 442.5 ml 827.5 ml Exam HEENT exam; supple neck, no JVD. No lymphadenopathy. Midline trachea. No thyromegaly. Orally intubated. There is a well-healed prior tracheostomy scar. Pupils are midsize and reactive to light. Chest exam; diminished but clear breath sounds. S1-S2 audible, no murmurs. Regular rhythm. Abdomen exam; soft, nondistended. No organomegaly. G-tube in place. Bowel sounds audible. Extremity exam; no peripheral edema. 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 Results Result Diagram: 08/15/17 0400 08/15/17 0400 Results 24 hrs Laboratory Tests Test 08/14/17 11:59 08/14/17 17:13 08/15/17 04:00 08/15/17 09:41 Bedside Glucose 264 H 185 230 H White Blood Count 9.0 # Red Blood Count 3.47 L Hemoglobin 7.8 L Hematocrit 26.4 L Mean Corpuscular Volume 76.1 L Mean Corpuscular Hemoglobin 22.5 L Mean Corpuscular Hemoglobin Concent 29.5 L Red Cell Distribution Width 20.0 H Platelet Count 358 # Mean Platelet Volume 11.2 H Neutrophils % 75.2 Lymphocytes % 15.1 Monocytes % 4.8 Eosinophils % 3.9 Basophils % 0.4 Nucleated Red Blood Cells % 0.0 Neutrophils # 6.8 Lymphocytes # 1.4 Monocytes # 0.4 Eosinophils # 0.4 Basophils # 0.0 Nucleated Red Blood Cells # 0.0 Sodium Level 141 Potassium Level 3.5 Chloride Level 105 Carbon Dioxide Level 27 Anion Gap 13 Blood Urea Nitrogen 18 Creatinine 0.53 Glucose Level 253 H Calcium Level 8.3 L Medications Medications Current Medications Fentanyl 1000 mcg/ Dextrose 100 ml @ 2.5 mls/hr TITRATE IV Last administered on 08/15/17 09:43; Admin Dose 2.5 MLS/HR; Start 08/13/17 at 21:00 Sodium Chloride (NS) 1,000 ml @ 100 mls/hr Q10H IV Last administered on 05:02; Admin Dose 100 MLS/HR; Start 08/13/17 at 22:50 Ondansetron HCl (Zofran Inj) 4 mg Q6H PRN IV NAUSEA AND/OR VOMITING; Start at 23:00 Acetaminophen (Tylenol Supp) 650 mg Q4H PRN [place] PAIN LEVEL 1-3 OR FEVER Last administered on 08/14/17 05:38; Admin Dose 650 MG; Start 08/13/17 at 23:00 Morphine Sulfate (morphine) 2 mg Q4H PRN IV PAIN LEVEL 7-10; Start 08/13/17 at 23:00 Lorazepam (Ativan) 1 mg Q2H PRN IV ANXIETY; Start 08/13/17 at 23:00 Heparin Sodium (Porcine) 5000 unit 5,000 unit Q12 SC Last administered on 08/15 09:43; Admin Dose 5,000 UNIT; Start 08/14/17 at 09:00 Piperacillin Sod/ Tazobactam Sod (Zosyn 3.375gm/ 100 ml (Pmx)) 100 ml @ 200 mls /hr Q6 IVPB Last administered on 08/15/17 05:02; Admin Dose 200 MLS/HR; Start 08/13/17 at 00:00 Ascorbic Acid (Vitamin C) 500 mg DAILY GTB Last administered on 08/15/17 09: 45; Admin Dose 500 MG; Start 08/14/17 at 09:00 Clopidogrel Bisulfate (plaVIX) 75 mg DAILY GTB Last administered on 08/15/17 09:45; Admin Dose 75 MG; Start 08/14/17 at 09:00 Levetiracetam (Keppra Liquid) 500 mg BID GTB Last administered on 08/15/17 09 :45; Admin Dose 500 MG; Start 08/13/17 at 23:00 Zinc Sulfate (Zinc Sulfate) 220 mg DAILY GTB Last administered on 08/15/17 09 :45; Admin Dose 220 MG; Start 08/14/17 at 09:00 Miscellaneous Information 1 ea NOTE XX ; Start 08/14/17 at 00:30 Glucose (Glutose) 15 gm Q15M PRN PO DECREASED GLUCOSE; Start 08/14/17 at 00:30 Glucose (Glutose) 22.5 gm Q15M PRN PO DECREASED GLUCOSE; Start 08/14/17 at 00: 30 Dextrose (D50w Syringe) 25 ml Q15M PRN IV DECREASED GLUCOSE; Start 08/14/17 at 00:30 Dextrose (D50w Syringe) 50 ml Q15M PRN IV DECREASED GLUCOSE; Start 08/14/17 at 00:30 Glucagon (Glucagen) 1 mg Q15M PRN IM DECREASED GLUCOSE; Start 08/14/17 at 00: 30 Glucose 15 gm 15 gm Q15M PRN BUCCAL DECREASED GLUCOSE; Start 08/14/17 at 00:30 Vancomycin HCl/ Dextrose/Water (Vancocin/D5W) 150 ml @ 75 mls/hr Q12H IVPB Last administered on 08/14/17 23:53; Admin Dose 75 MLS/HR; Start 08/14/17 at 12:00 Bisacodyl (Dulcolax) 10 mg DAILY PRN PO CONSTIPATION; Start 08/14/17 at 14:00 Losartan Potassium (Cozaar) 100 mg QHS GTB Last administered on 08/14/17 20: 48; Admin Dose 100 MG; Start 08/14/17 at 21:00 Magnesium Hydroxide (Milk Of Mag) 30 ml DAILY PRN GTB CONSTIPATION; Start at 14:00 Tramadol HCl (Ultram) 50 mg Q12 GTB Last administered on 08/15/17 09:53; Admin Dose 50 MG; Start 08/14/17 at 21:00 Diagnostic Test (Pha) (Accu-Chek) 1 ea 02 XX Last administered on 08/15/17 02 :34; Admin Dose 1 EA; Start 08/15/17 at 02:00 Miscellaneous Information (Pending [facility] Order For Wound Care) This patient valenzuela... PRN PRN XX WOUND CARE; Start 08/14/17 at 14:30 Lansoprazole (Prevacid) 30 mg DAILY@06 GTB Last administered on 08/15/17 05: 02; Admin Dose 30 MG; Start 08/15/17 at 06:00 Insulin Detemir (Levemir) 40 unit DAILY SC Last administered on 08/15/17 09: 44; Admin Dose 40 UNIT; Start 08/15/17 at 09:00 ADRIANA TOVAR Aug 15, 2017 11:19
[2017-08-15] MEDS: INSULIN ASPART [NOVOLOG] 3 ML PEN SC SCH ×2 (13:07→18:00)
[2017-08-15] MEDS: VANCOMYCIN 750 MG in DEXTROSE 5% 150 ML IVPB SCH (13:21)
--- NOTE | 2017-08-15 13:31 | PN ---
Date/Time of Note Date/Time of Note DATE: 08/15/17 TIME: 13:30 Assessment/Plan VTE Prophylaxis VTE Prophylaxis Intervention: SCD's Lines/Catheters IV Catheter Type (from Nrsg): Central Line Central line still needed: No Urinary Cath still in place: Yes Reason Cath still needed: other (indicate) (critically ill) Assessment/Plan Assessment/Plan 71 yo F with pmhx chronic encephalopathy and dysphagia 2/2 old CVA with chronic g tube admitted for sepsis (tachycardia/fever) possibly 2/2 healthcare associated aspiration pneumonia PLAN continue broad spectrum abx -cont zosyn. 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: cont home BP and pain meds DM cont home insulin, +SSI dysphagia: cont TFs critical care time: 30 minutes Subjective 24 Hr Interval Summary Free Text/Dictation not yet ready for extubation per pulm Exam/Review of Systems Vital Signs Vitals Vital Signs Date Time Temp Pulse Resp B/P Pulse Ox O2 Delivery O2 Flow Rate FiO2 08/15/17 12:00 78 08/15/17 11:20 16 100 30 08/15/17 11:00 136/55 Mechanical Ventilator 08/15/17 08:00 99.1 08/14/17 07:21 10.0 Intake and Output 08/14/17 08/14/17 08/15/17 15:00 23:00 07:00 Intake Total 971.0 ml 712.5 ml 1067.5 ml Output Total 240 ml 270 ml 240 ml Balance 731.0 ml 442.5 ml 827.5 ml Exam nad no mrg lungs clear abd soft no rashes Results Result Diagram: 08/15/17 0400 08/15/17 0400 Results 24 hrs Laboratory Tests Test 08/14/17 17:13 08/15/17 04:00 08/15/17 09:41 08/15/17 11:13 Bedside Glucose 185 230 H White Blood Count 9.0 # Red Blood Count 3.47 L Hemoglobin 7.8 L Hematocrit 26.4 L Mean Corpuscular Volume 76.1 L Mean Corpuscular Hemoglobin 22.5 L Mean Corpuscular Hemoglobin Concent 29.5 L Red Cell Distribution Width 20.0 H Platelet Count 358 # Mean Platelet Volume 11.2 H Neutrophils % 75.2 Lymphocytes % 15.1 Monocytes % 4.8 Eosinophils % 3.9 Basophils % 0.4 Nucleated Red Blood Cells % 0.0 Neutrophils # 6.8 Lymphocytes # 1.4 Monocytes # 0.4 Eosinophils # 0.4 Basophils # 0.0 Nucleated Red Blood Cells # 0.0 Sodium Level 141 Potassium Level 3.5 Chloride Level 105 Carbon Dioxide Level 27 Anion Gap 13 Blood Urea Nitrogen 18 Creatinine 0.53 Glucose Level 253 H Calcium Level 8.3 L Vancomycin Level Trough 10.8 Test 08/15/17 12:39 Bedside Glucose 213 Medications Medications Current Medications Fentanyl 1000 mcg/ Dextrose 100 ml @ 2.5 mls/hr TITRATE IV Last administered on 08/15/17 09:43; Admin Dose 2.5 MLS/HR; Start 08/13/17 at 21:00 Sodium Chloride (NS) 1,000 ml @ 100 mls/hr Q10H IV Last administered on 05:02; Admin Dose 100 MLS/HR; Start 08/13/17 at 22:50 Ondansetron HCl (Zofran Inj) 4 mg Q6H PRN IV NAUSEA AND/OR VOMITING; Start at 23:00 Acetaminophen (Tylenol Supp) 650 mg Q4H PRN [place] PAIN LEVEL 1-3 OR FEVER Last administered on 08/14/17 05:38; Admin Dose 650 MG; Start 08/13/17 at 23:00 Morphine Sulfate (morphine) 2 mg Q4H PRN IV PAIN LEVEL 7-10; Start 08/13/17 at 23:00 Lorazepam (Ativan) 1 mg Q2H PRN IV ANXIETY; Start 08/13/17 at 23:00 Heparin Sodium (Porcine) 5000 unit 5,000 unit Q12 SC Last administered on 08/15 09:43; Admin Dose 5,000 UNIT; Start 08/14/17 at 09:00 Piperacillin Sod/ Tazobactam Sod (Zosyn 3.375gm/ 100 ml (Pmx)) 100 ml @ 200 mls /hr Q6 IVPB Last administered on 08/15/17 12:39; Admin Dose 200 MLS/HR; Start 08/13/17 at 00:00 Ascorbic Acid (Vitamin C) 500 mg DAILY GTB Last administered on 08/15/17 09: 45; Admin Dose 500 MG; Start 08/14/17 at 09:00 Clopidogrel Bisulfate (plaVIX) 75 mg DAILY GTB Last administered on 08/15/17 09:45; Admin Dose 75 MG; Start 08/14/17 at 09:00 Levetiracetam (Keppra Liquid) 500 mg BID GTB Last administered on 08/15/17 09 :45; Admin Dose 500 MG; Start 08/13/17 at 23:00 Zinc Sulfate (Zinc Sulfate) 220 mg DAILY GTB Last administered on 08/15/17 09 :45; Admin Dose 220 MG; Start 08/14/17 at 09:00 Miscellaneous Information 1 ea NOTE XX ; Start 08/14/17 at 00:30 Glucose (Glutose) 15 gm Q15M PRN PO DECREASED GLUCOSE; Start 08/14/17 at 00:30 Glucose (Glutose) 22.5 gm Q15M PRN PO DECREASED GLUCOSE; Start 08/14/17 at 00: 30 Dextrose (D50w Syringe) 25 ml Q15M PRN IV DECREASED GLUCOSE; Start 08/14/17 at 00:30 Dextrose (D50w Syringe) 50 ml Q15M PRN IV DECREASED GLUCOSE; Start 08/14/17 at 00:30 Glucagon (Glucagen) 1 mg Q15M PRN IM DECREASED GLUCOSE; Start 08/14/17 at 00: 30 Glucose 15 gm 15 gm Q15M PRN BUCCAL DECREASED GLUCOSE; Start 08/14/17 at 00:30 Vancomycin HCl/ Dextrose/Water (Vancocin/D5W) 150 ml @ 75 mls/hr Q12H IVPB Last administered on 08/15/17 13:21; Admin Dose 75 MLS/HR; Start 08/14/17 at 12:00 Bisacodyl (Dulcolax) 10 mg DAILY PRN PO CONSTIPATION; Start 08/14/17 at 14:00 Losartan Potassium (Cozaar) 100 mg QHS GTB Last administered on 08/14/17 20: 48; Admin Dose 100 MG; Start 08/14/17 at 21:00 Magnesium Hydroxide (Milk Of Mag) 30 ml DAILY PRN GTB CONSTIPATION; Start at 14:00 Tramadol HCl (Ultram) 50 mg Q12 GTB Last administered on 08/15/17 09:53; Admin Dose 50 MG; Start 08/14/17 at 21:00 Miscellaneous Information (Pending Santyl Order For Wound Care) This patient valenzuela... PRN PRN XX WOUND CARE; Start 08/14/17 at 14:30 Lansoprazole (Prevacid) 30 mg DAILY@06 GTB Last administered on 08/15/17 05: 02; Admin Dose 30 MG; Start 08/15/17 at 06:00 Insulin Detemir (Levemir) 40 unit DAILY SC Last administered on 08/15/17 09: 44; Admin Dose 40 UNIT; Start 08/15/17 at 09:00 Insulin Aspart (Novolog Insulin Pen) NOVOLOG *MILD* ALGORI... Q6 SC Last administered on 08/15/17 13:07; Admin Dose 2 UNIT; Start 08/15/17 at 12:30 LUDA MORENO MD Aug 15, 2017 13:31
[2017-08-15] MEDS: COLLAGENASE 30 GM TUBE TOP SCH (17:28)
--- NOTE | 2017-08-15 18:37 | CONS ---
Date/Time of Note Date/Time of Note DATE: 08/15/17 TIME: 18:30 Assessment/Plan Assessment/Plan Additional Assessment/Plan To begin with I will change patient's code to DO NOT RESUSCITATE based upon conversation I had with her daughter this evening. This is a 71-year-old female who is a resident [facility] a [facility] unit who presented to [facility] with respiratory failure required intubation and admission to the intensive care unit. Patient has a history of CVA and according to her daughter whom I spoke with keisha has been bedridden requiring total body care for the last 2 years. I spoken the patient's who deferred all questions to patient's daughter who lives in [place]. There are other family members but the decision rests with the sibling I spoke with this evening. I asked daughter whether or not mother ever spoke about the level of care she would want if she became debilitated or had a catastrophic event and could not make decisions on her own. She told me that conversation never came up. I asked her she comfortable making decisions on her mother's behalf, she states that she will do so. I gave her long explanation as to her mother's current clinical course, the fact that she is septic although stable at this time. I told her her mother is in a moribund condition unable to communicate she only stares in space. Over the phone daughter started to cry. I asked her whether or not she wanted us to do cardiopulmonary resuscitation in the event that her mother clinical course declines suddenly. She does not want her mother to have CPR but at this time she does not want to address comfort measures. I agreed with her with the assumption that she will talk with her father and may be her brothers and tomorrow I will call her back. This is a 71-year-old female with a history of CVA, respiratory failure with history of prior trach, hypertension, dysphagia with G-tube for feeding who was sent from SNF for shortness of breath. Patient is nonverbal and does not follow commands and as such information is gathered from chart review and from the ER physician. When she presented to the ER, she was short of breath with increased work of breathing and was very lethargic. Shortly after arrival to the ER, patient was intubated. She had a temp of 102.7 when she was in the ER. Her initial BP was 235/106 with a heart rate of 129. Labs shows WBC of 15,000, lactate 2.6 which trended up to 4.5, glucose 319. UA without UTI and a chest x-ray showed no acute findings. Initial ABG showed a pH of 7.47, PCO2 41, PO2 474, bicarb 29 on 100% of FiO2 while she was on the vent. . Consultation Date/Type/Reason Admit Date/Time Aug 13, 2017 at 22:40 Past Surgical History Past Surgical Hx: other Social History Smoking Status: Unknown if ever smoked Exam/Review of Systems Vital Signs Vitals Vital Signs Date Time Temp Pulse Resp B/P Pulse Ox O2 Delivery O2 Flow Rate FiO2 08/15/17 14:00 81 16 145/61 100 Mechanical Ventilator 08/15/17 12:00 30 08/15/17 12:00 99.2 08/14/17 07:21 10.0 Intake and Output 08/14/17 08/14/17 08/15/17 15:00 23:00 07:00 Intake Total 971.0 ml 712.5 ml 1170.0 ml Output Total 240 ml 270 ml 240 ml Balance 731.0 ml 442.5 ml 930.0 ml Exam Constitutional: frail, non-verbal Respiratory: congested cough, crackles/rales, diminished breath sounds Cardiovascular: nl pulses, regular rate and rhythm Neurological: other, unresponsive (Does not respond to any simple commands, withdraws to tactile stimulation oculocephalics grossly sluggish and intact bilateral contracted upper extremity) Results Result Diagram: 08/15/17 0400 08/15/17 0400 Results 24 hrs Laboratory Tests Test 08/15/17 04:00 08/15/17 09:41 08/15/17 11:13 08/15/17 12:39 White Blood Count 9.0 # Red Blood Count 3.47 L Hemoglobin 7.8 L Hematocrit 26.4 L Mean Corpuscular Volume 76.1 L Mean Corpuscular Hemoglobin 22.5 L Mean Corpuscular Hemoglobin Concent 29.5 L Red Cell Distribution Width 20.0 H Platelet Count 358 # Mean Platelet Volume 11.2 H Neutrophils % 75.2 Lymphocytes % 15.1 Monocytes % 4.8 Eosinophils % 3.9 Basophils % 0.4 Nucleated Red Blood Cells % 0.0 Neutrophils # 6.8 Lymphocytes # 1.4 Monocytes # 0.4 Eosinophils # 0.4 Basophils # 0.0 Nucleated Red Blood Cells # 0.0 Sodium Level 141 Potassium Level 3.5 Chloride Level 105 Carbon Dioxide Level 27 Anion Gap 13 Blood Urea Nitrogen 18 Creatinine 0.53 Glucose Level 253 H Calcium Level 8.3 L Bedside Glucose 230 H 213 Vancomycin Level Trough 10.8 Test 08/15/17 18:01 Bedside Glucose 121 Medications Medications Current Medications Fentanyl/Dextrose (D5W) 100 ml @ 2.5 mls/hr TITRATE IV Last administered on 09:43; Admin Dose 2.5 MLS/HR; Start 08/13/17 at 21:00 Ondansetron HCl (Zofran Inj) 4 mg Q6H PRN IV NAUSEA AND/OR VOMITING; Start at 23:00 Acetaminophen (Tylenol Supp) 650 mg Q4H PRN [place] PAIN LEVEL 1-3 OR FEVER Last administered on 08/14/17 05:38; Admin Dose 650 MG; Start 08/13/17 at 23:00 Morphine Sulfate (morphine) 2 mg Q4H PRN IV PAIN LEVEL 7-10; Start 08/13/17 at 23:00 Heparin Sodium (Porcine) 5000 unit 5,000 unit Q12 SC Last administered on 08/15 09:43; Admin Dose 5,000 UNIT; Start 08/14/17 at 09:00 Piperacillin Sod/ Tazobactam Sod (Zosyn 3.375gm/ 100 ml (Pmx)) 100 ml @ 200 mls /hr Q6 IVPB Last administered on 08/15/17 12:39; Admin Dose 200 MLS/HR; Start 08/13/17 at 00:00 Ascorbic Acid (Vitamin C) 500 mg DAILY GTB Last administered on 08/15/17 09: 45; Admin Dose 500 MG; Start 08/14/17 at 09:00 Clopidogrel Bisulfate (plaVIX) 75 mg DAILY GTB Last administered on 08/15/17 09:45; Admin Dose 75 MG; Start 08/14/17 at 09:00 Levetiracetam (Keppra Liquid) 500 mg BID GTB Last administered on 08/15/17 09 :45; Admin Dose 500 MG; Start 08/13/17 at 23:00 Zinc Sulfate (Zinc Sulfate) 220 mg DAILY GTB Last administered on 08/15/17 09 :45; Admin Dose 220 MG; Start 08/14/17 at 09:00 Miscellaneous Information 1 ea NOTE XX ; Start 08/14/17 at 00:30 Glucose (Glutose) 15 gm Q15M PRN PO DECREASED GLUCOSE; Start 08/14/17 at 00:30 Glucose (Glutose) 22.5 gm Q15M PRN PO DECREASED GLUCOSE; Start 08/14/17 at 00: 30 Dextrose (D50w Syringe) 25 ml Q15M PRN IV DECREASED GLUCOSE; Start 08/14/17 at 00:30 Dextrose (D50w Syringe) 50 ml Q15M PRN IV DECREASED GLUCOSE; Start 08/14/17 at 00:30 Glucagon (Glucagen) 1 mg Q15M PRN IM DECREASED GLUCOSE; Start 08/14/17 at 00: 30 Glucose 15 gm 15 gm Q15M PRN BUCCAL DECREASED GLUCOSE; Start 08/14/17 at 00:30 Vancomycin HCl/ Dextrose/Water (Vancocin/D5W) 150 ml @ 75 mls/hr Q12H IVPB Last administered on 08/15/17 13:21; Admin Dose 75 MLS/HR; Start 08/14/17 at 12:00 Bisacodyl (Dulcolax) 10 mg DAILY PRN PO CONSTIPATION; Start 08/14/17 at 14:00 Losartan Potassium (Cozaar) 100 mg QHS GTB Last administered on 08/14/17 20: 48; Admin Dose 100 MG; Start 08/14/17 at 21:00 Magnesium Hydroxide (Milk Of Mag) 30 ml DAILY PRN GTB CONSTIPATION; Start at 14:00 [facility]isc[facility] This patient valenzuela... PRN PRN XX WOUND CARE; Start 08/14/17 at 14:30 Lansoprazole (Prevacid) 30 mg DAILY@06 GTB Last administered on 08/15/17 05: 02; Admin Dose 30 MG; Start 08/15/17 at 06:00 Insulin Detemir (Levemir) 40 unit DAILY SC Last administered on 08/15/17 09: 44; Admin Dose 40 UNIT; Start 08/15/17 at 09:00 Insulin Aspart (Novolog Insulin Pen) NOVOLOG *MILD* ALGORI... Q6 SC Last administered on 08/15/17t 13:07; Admin Dose 2 UNIT; Start 08/15/17 at 12:30 Collagenase (Santyl) 1 applic DAILY TOP ; Start 08/15/17 at 15:00 PARMJIT AYALA Aug 15, 2017 18:37
[2017-08-15] MEDS: LOSARTAN 50 MG TAB GTB SCH (20:46)
[2017-08-16] VITALS (41 sets, daily range): BP systolic 120–166; BP diastolic 45–86; PULSE 63–130; RESP 16–17
[2017-08-16] MEDS: PIPER-TAZO 3.375 GM IV (PMX) 100 ML IVPB SCH ×4 (00:06→17:36)
[2017-08-16] MEDS: INSULIN ASPART [NOVOLOG] 3 ML PEN SC SCH ×6 (00:08→20:47)
[2017-08-16] MEDS: VANCOMYCIN 750 MG in DEXTROSE 5% 150 ML IVPB SCH ×2 (00:31→11:42)
[2017-08-16 05:03] LABS: BASOPHILS % 0.5 % (0.0-2.0); EOSINOPHILS # 0.6 10^3/ul (0.0-0.5); EOSINOPHILS % 9.3 % (0.0-7.0); HEMATOCRIT 24.5 % (37.0-47.0); HEMOGLOBIN 7.5 g/dl (12.0-16.0); LYMPHOCYTES # 1.7 10^3/ul (0.8-2.9); LYMPHOCYTES % 28.8 % (15.0-51.0); MEAN CORPUSCULAR HEMOGLOBIN 23.3 pg (29.0-33.0); MEAN CORPUSCULAR HGB CONC 30.6 g/dl (32.0-37.0); MEAN CORPUSCULAR VOLUME 76.1 fl (82.0-101.0); MONOCYTE # 0.4 10^3/ul (0.3-0.9); MONOCYTES % 6.8 % (0.0-11.0); NEUTROPHIL # 3.2 10^3/ul (1.6-7.5); NEUTROPHILS % 53.9 % (39.0-77.0); PLATELET COUNT 309 10^3/UL (140-415); RED BLOOD COUNT 3.22 10^6/ul (4.20-5.40); RED CELL DISTRIBUTION WIDTH 19.8 % (11.5-14.5)
[2017-08-16 05:49] LABS: CALCIUM 8.9 mg/dl (8.4-10.2); CREATININE 0.49 mg/dl (0.44-1.00); POTASSIUM 3.1 mmol/L (3.5-5.1)
[2017-08-16] MEDS: LANSOPRAZOLE 30 MG CAP GTB SCH (06:09)
[2017-08-16] MEDS: POTASSIUM CHLORIDE 250 ML IVPB SCH ×2 (06:52→10:35)
[2017-08-16] MEDS: ASCORBIC ACID 500 MG TAB GTB SCH (08:50)
[2017-08-16] MEDS: ZINC SULFATE 220 MG CAP GTB SCH (08:50)
[2017-08-16] MEDS: LEVETIRACETAM (100 MG/ML) 5ML CUP GTB SCH ×2 (08:50→20:48)
[2017-08-16] MEDS: CLOPIDOGREL 75 MG TAB GTB SCH (08:50)
[2017-08-16] MEDS: HEPARIN 5,000 UNIT/0.5 ML VIAL SC SCH ×2 (08:54→21:06)
[2017-08-16] MEDS: INSULIN DETEMIR [LEVEMIR] 3ML CART SC SCH (08:55)
[2017-08-16] MEDS: COLLAGENASE 30 GM TUBE TOP SCH (08:56)
--- NOTE | 2017-08-16 10:55 | CONS ---
Date/Time of Note Date/Time of Note DATE: 08/16/17 TIME: 10:51 Assessment/Plan Assessment/Plan Additional Assessment/Plan Ventilator setting; AC of 16, tidal volume 500, PEEP of 5, 30% FiO2. Patient was getting fentanyl drip at 25 mics per hour, which is currently on hold. Next Assessment recommendations; 1. Patient admitted with bilateral bronchopneumonia leading to respiratory failure with a significant element of possible hypo ventilation due to advanced dementia. 2. Chronic dysphagia, status post G-tube placement in the past. 3. History of stable seizure disorder, history of hypertension or diabetes. 4. Mild anemia and mild thrombocytopenia. Patient was assessed at bedside on CPAP mode currently has very poor weaning parameters. Will wait for the patient to be more arousable before giving another trial. Meanwhile continue current supportive care. Mild anemia and mild thrombocytopenia. Consultation Date/Type/Reason Admit Date/Time Aug 13, 2017 at 22:40 Initial Consult Date 08/14/17 Type of Consultation: Pulmonary/critical care 24 HR Interval Summary Free Text/Dictation Patient's condition remains critical. Patient has been off sedation and is not much arousable. General exam; elderly woman, orally intubated, currently unresponsive. Currently in no distress. Exam/Review of Systems Vital Signs Vitals Vital Signs Date Time Temp Pulse Resp B/P Pulse Ox O2 Delivery O2 Flow Rate FiO2 08/16/17 09:48 85 16 100 30 08/16/17 09:00 126/80 Mechanical Ventilator 08/16/17 08:00 98.1 08/14/17 07:21 10.0 Intake and Output 08/15/17 08/15/17 08/16/17 15:00 23:00 07:00 Intake Total 828.0 ml 445.0 ml 787.5 ml Output Total 670 ml 975 ml 810 ml Balance 158.0 ml -530.0 ml -22.5 ml Exam HEENT exam; supple neck, no JVD. No lymphadenopathy. Midline trachea. No thyromegaly. Orally intubated. Pupils are small bilaterally. Chest exam; diminished but clear breath sounds. S1-S2 audible, no murmurs. Regular rhythm. Abdomen exam; soft, G-tube in place. No organomegaly. Bowel sounds audible. Extremity exam; no peripheral edema. EMERGENCY MEDICAL DISPATCHER exam; patient is currently unresponsive. Results Result Diagram: 08/16/17 0440 08/16/17 0440 Results 24 hrs Laboratory Tests Test 08/15/17 11:13 08/15/17 12:39 08/15/17 18:01 08/16/17 00:03 Vancomycin Level Trough 10.8 Bedside Glucose 213 121 188 Test 08/16/17 04:40 08/16/17 05:20 08/16/17 08:35 White Blood Count 6.0 # Red Blood Count 3.22 L Hemoglobin 7.5 L Hematocrit 24.5 L Mean Corpuscular Volume 76.1 L Mean Corpuscular Hemoglobin 23.3 L Mean Corpuscular Hemoglobin Concent 30.6 L Red Cell Distribution Width 19.8 H Platelet Count 309 Mean Platelet Volume 11.0 H Neutrophils % 53.9 Lymphocytes % 28.8 Monocytes % 6.8 Eosinophils % 9.3 H Basophils % 0.5 Nucleated Red Blood Cells % 0.0 Neutrophils # 3.2 Lymphocytes # 1.7 Monocytes # 0.4 Eosinophils # 0.6 H Basophils # 0.0 Nucleated Red Blood Cells # 0.0 Sodium Level 140 Potassium Level 3.1 L Chloride Level 104 Carbon Dioxide Level 27 Anion Gap 12 Blood Urea Nitrogen 9 # Creatinine 0.49 Glucose Level 176 Calcium Level 8.9 Bedside Glucose 196 195 Medications Medications Current Medications Fentanyl/Dextrose (D5W) 100 ml @ 2.5 mls/hr TITRATE IV Last administered on 09:43; Admin Dose 2.5 MLS/HR; Start 08/13/17 at 21:00 Ondansetron HCl (Zofran Inj) 4 mg Q6H PRN IV NAUSEA AND/OR VOMITING; Start at 23:00 Acetaminophen (Tylenol Supp) 650 mg Q4H PRN [place] PAIN LEVEL 1-3 OR FEVER Last administered on 08/14/17 05:38; Admin Dose 650 MG; Start 08/13/17 at 23:00 Morphine Sulfate (morphine) 2 mg Q4H PRN IV PAIN LEVEL 7-10; Start 08/13/17 at 23:00 Heparin Sodium (Porcine) 5000 unit 5,000 unit Q12 SC Last administered on 08:54; Admin Dose 5,000 UNIT; Start 08/14/17 at 09:00 Piperacillin Sod/ Tazobactam Sod (Zosyn 3.375gm/ 100 ml (Pmx)) 100 ml @ 200 mls /hr Q6 IVPB Last administered on 08/16/17 06:10; Admin Dose 200 MLS/HR; Start 08/13/17 at 00:00 Ascorbic Acid (Vitamin C) 500 mg DAILY GTB Last administered on 08/16/17 08:50 ; Admin Dose 500 MG; Start 08/14/17 at 09:00 Clopidogrel Bisulfate (plaVIX) 75 mg DAILY GTB Last administered on 08/16/17 08:50; Admin Dose 75 MG; Start 08/14/17 at 09:00 Levetiracetam (Keppra Liquid) 500 mg BID GTB Last administered on 08/16/17 08: 50; Admin Dose 500 MG; Start 08/13/17 at 23:00 Zinc Sulfate (Zinc Sulfate) 220 mg DAILY GTB Last administered on 08/16/17 08: 50; Admin Dose 220 MG; Start 08/14/17 at 09:00 Miscellaneous Information 1 ea NOTE XX ; Start 08/14/17 at 00:30 Glucose (Glutose) 15 gm Q15M PRN PO DECREASED GLUCOSE; Start 08/14/17 at 00:30 Glucose (Glutose) 22.5 gm Q15M PRN PO DECREASED GLUCOSE; Start 08/14/17 at 00: 30 Dextrose (D50w Syringe) 25 ml Q15M PRN IV DECREASED GLUCOSE; Start 08/14/17 at 00:30 Dextrose (D50w Syringe) 50 ml Q15M PRN IV DECREASED GLUCOSE; Start 08/14/17 at 00:30 Glucagon (Glucagen) 1 mg Q15M PRN IM DECREASED GLUCOSE; Start 08/14/17 at 00: 30 Glucose 15 gm 15 gm Q15M PRN BUCCAL DECREASED GLUCOSE; Start 08/14/17 at 00:30 Vancomycin HCl/ Dextrose/Water (Vancocin/D5W) 150 ml @ 75 mls/hr Q12H IVPB Last administered on 08/16/17 00:31; Admin Dose 75 MLS/HR; Start 08/14/17 at 12:00 Bisacodyl (Dulcolax) 10 mg DAILY PRN PO CONSTIPATION; Start 08/14/17 at 14:00 Losartan Potassium (Cozaar) 100 mg QHS GTB Last administered on 08/15/17 20: 46; Admin Dose 100 MG; Start 08/14/17 at 21:00 Magnesium Hydroxide (Milk Of Mag) 30 ml DAILY PRN GTB CONSTIPATION; Start at 14:00 Miscellaneous Information (Pending Santyl Order For Wound Care) This patient valenzuela... PRN PRN XX WOUND CARE; Start 08/14/17 at 14:30 Lansoprazole (Prevacid) 30 mg DAILY@06 GTB Last administered on 08/16/17 06:09 ; Admin Dose 30 MG; Start 08/15/17 at 06:00 Insulin Detemir (Levemir) 40 unit DAILY SC Last administered on 08/16/17 08:55 ; Admin Dose 40 UNIT; Start 08/15/17 at 09:00 Collagenase (Santyl) 1 applic DAILY TOP Last administered on 08/16/17 08:56; Admin Dose 1 APPLIC; Start 08/15/17 at 15:00 Insulin Aspart NOVOLOG *MILD* ALGORI... Q4 SC Last administered on 08/16/17 08 :56; Admin Dose 2 UNIT; Start 08/16/17 at 05:00 Potassium Chloride (KCl 40 MEQ/250 ML NS) 250 ml @ 62.5 mls/hr Q4H IVPB Last administered on 08/16/17 10:35; Admin Dose 62.5 MLS/HR; Start 08/16/17 at 06:30 ; Stop 08/16/17 at 14:29 ADRIANA TOVAR Aug 16, 2017 10:55
[2017-08-16] MEDS ORDERED: POTASSIUM CHLORIDE 250 ML IVPB ONE (11:00)
[2017-08-16] MEDS: MAGNESIUM HYDROXIDE 30ML CUP GTB PRN ×2 (11:46→11:48)
--- NOTE | 2017-08-16 12:51 | CONS ---
Date/Time of Note Date/Time of Note DATE: 08/16/17 TIME: 12:49 Assessment/Plan Assessment/Plan Additional Assessment/Plan There is been no change in overall clinical course overnight. Please refer to my prior note in speaking with patient's daughter last night and changing her code to DO NOT RESUSCITATE. I will give her today to process our conversation last night and give her a call again tomorrow discussed terminal compassionate extubation. CPAP trial done today patient became tachycardic in in severe respiratory distress. Consultation Date/Type/Reason Admit Date/Time Aug 13, 2017 at 22:40 Initial Consult Date 08/14/17 Type of Consultation: Pulmonary/critical care Exam/Review of Systems Vital Signs Vitals Vital Signs Date Time Temp Pulse Resp B/P Pulse Ox O2 Delivery O2 Flow Rate FiO2 08/16/17 11:59 88 16 100 30 08/16/17 09:00 126/80 Mechanical Ventilator 08/16/17 08:00 98.1 08/14/17 07:21 10.0 Intake and Output 08/15/17 08/15/17 08/16/17 15:00 23:00 07:00 Intake Total 828.0 ml 445.0 ml 787.5 ml Output Total 670 ml 975 ml 810 ml Balance 158.0 ml -530.0 ml -22.5 ml Exam Respiratory: congested cough, crackles/rales Cardiovascular: nl pulses, regular rate and rhythm Neurological: unresponsive Results Result Diagram: 08/16/17 0440 08/16/17 0440 Results 24 hrs Laboratory Tests Test 08/15/17 18:01 08/16/17 00:03 08/16/17 04:40 08/16/17 05:20 Bedside Glucose 121 188 196 White Blood Count 6.0 # Red Blood Count 3.22 L Hemoglobin 7.5 L Hematocrit 24.5 L Mean Corpuscular Volume 76.1 L Mean Corpuscular Hemoglobin 23.3 L Mean Corpuscular Hemoglobin Concent 30.6 L Red Cell Distribution Width 19.8 H Platelet Count 309 Mean Platelet Volume 11.0 H Neutrophils % 53.9 Lymphocytes % 28.8 Monocytes % 6.8 Eosinophils % 9.3 H Basophils % 0.5 Nucleated Red Blood Cells % 0.0 Neutrophils # 3.2 Lymphocytes # 1.7 Monocytes # 0.4 Eosinophils # 0.6 H Basophils # 0.0 Nucleated Red Blood Cells # 0.0 Sodium Level 140 Potassium Level 3.1 L Chloride Level 104 Carbon Dioxide Level 27 Anion Gap 12 Blood Urea Nitrogen 9 # Creatinine 0.49 Glucose Level 176 Calcium Level 8.9 Test 08/16/17 08:35 08/16/17 11:44 08/16/17 12:23 Bedside Glucose 195 192 207 Medications Medications Current Medications Fentanyl/Dextrose (D5W) 100 ml @ 2.5 mls/hr TITRATE IV Last administered on 09:43; Admin Dose 2.5 MLS/HR; Start 08/13/17 at 21:00 Ondansetron HCl (Zofran Inj) 4 mg Q6H PRN IV NAUSEA AND/OR VOMITING; Start at 23:00 Acetaminophen (Tylenol Supp) 650 mg Q4H PRN [place] PAIN LEVEL 1-3 OR FEVER Last administered on 08/14/17 05:38; Admin Dose 650 MG; Start 08/13/17 at 23:00 Morphine Sulfate (morphine) 2 mg Q4H PRN IV PAIN LEVEL 7-10; Start 08/13/17 at 23:00 Heparin Sodium (Porcine) 5000 unit 5,000 unit Q12 SC Last administered on 08:54; Admin Dose 5,000 UNIT; Start 08/14/17 at 09:00 Piperacillin Sod/ Tazobactam Sod (Zosyn 3.375gm/ 100 ml (Pmx)) 100 ml @ 200 mls /hr Q6 IVPB Last administered on 08/16/17 11:42; Admin Dose 200 MLS/HR; Start 08/13/17 at 00:00 Ascorbic Acid (Vitamin C) 500 mg DAILY GTB Last administered on 08/16/17 08:50 ; Admin Dose 500 MG; Start 08/14/17 at 09:00 Clopidogrel Bisulfate (plaVIX) 75 mg DAILY GTB Last administered on 08/16/17 08:50; Admin Dose 75 MG; Start 08/14/17 at 09:00 Levetiracetam (Keppra Liquid) 500 mg BID GTB Last administered on 08/16/17 08: 50; Admin Dose 500 MG; Start 08/13/17 at 23:00 Zinc Sulfate (Zinc Sulfate) 220 mg DAILY GTB Last administered on 08/16/17 08: 50; Admin Dose 220 MG; Start 08/14/17 at 09:00 Miscellaneous Information 1 ea NOTE XX ; Start 08/14/17 at 00:30 Glucose (Glutose) 15 gm Q15M PRN PO DECREASED GLUCOSE; Start 08/14/17 at 00:30 Glucose (Glutose) 22.5 gm Q15M PRN PO DECREASED GLUCOSE; Start 08/14/17 at 00: 30 Dextrose (D50w Syringe) 25 ml Q15M PRN IV DECREASED GLUCOSE; Start 08/14/17 at 00:30 Dextrose (D50w Syringe) 50 ml Q15M PRN IV DECREASED GLUCOSE; Start 08/14/17 at 00:30 Glucagon (Glucagen) 1 mg Q15M PRN IM DECREASED GLUCOSE; Start 08/14/17 at 00: 30 Glucose 15 gm 15 gm Q15M PRN BUCCAL DECREASED GLUCOSE; Start 08/14/17 at 00:30 Vancomycin HCl/ Dextrose/Water (Vancocin/D5W) 150 ml @ 75 mls/hr Q12H IVPB Last administered on 08/16/17 11:42; Admin Dose 75 MLS/HR; Start 08/14/17 at 12:00 Bisacodyl (Dulcolax) 10 mg DAILY PRN PO CONSTIPATION; Start 08/14/17 at 14:00 Losartan Potassium (Cozaar) 100 mg QHS GTB Last administered on 08/15/17 20: 46; Admin Dose 100 MG; Start 08/14/17 at 21:00 Magnesium Hydroxide (Milk Of Mag) 30 ml DAILY PRN GTB CONSTIPATION Last administered on 08/16/17 11:48; Admin Dose 30 ML; Start 08/14/17 at 14:00 Miscellaneous Information (Pending Santyl Order For Wound Care) This patient valenzuela... PRN PRN XX WOUND CARE; Start 08/14/17 at 14:30 Lansoprazole (Prevacid) 30 mg DAILY@06 GTB Last administered on 08/16/17 06:09 ; Admin Dose 30 MG; Start 08/15/17 at 06:00 Insulin Detemir (Levemir) 40 unit DAILY SC Last administered on 08/16/17 08:55 ; Admin Dose 40 UNIT; Start 08/15/17 at 09:00 Collagenase (Santyl) 1 applic DAILY TOP Last administered on 08/16/17 08:56; Admin Dose 1 APPLIC; Start 08/15/17 at 15:00 Insulin Aspart NOVOLOG *MILD* ALGORI... Q4 SC Last administered on 08/16/17 12 :26; Admin Dose 2 UNIT; Start 08/16/17 at 05:00 Potassium Chloride (KCl 40 MEQ/250 ML NS) 250 ml @ 62.5 mls/hr Q4H IVPB Last administered on 08/16/17 10:35; Admin Dose 62.5 MLS/HR; Start 08/16/17 at 06:30 ; Stop 08/16/17 at 14:29 PARMJIT AYALA Aug 16, 2017 12:51
--- NOTE | 2017-08-16 13:48 | PN ---
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 sputum culture reviewed.will stop vanc. fransisca likely indicative of colonization given no nodules on imaging and pt is not immunocompromised h/o CVA: cont home BP and pain meds DM cont home insulin, +SSI dysphagia: cont TFs palliative managing consultant clinical professor working on goals of care critical care time: 30 minutes Subjective 24 Hr Interval Summary Free Text/Dictation Failed PST this AM Exam/Review of Systems Vital Signs Vitals Vital Signs Date Time Temp Pulse Resp B/P Pulse Ox O2 Delivery O2 Flow Rate FiO2 08/16/17 13:14 73 16 100 30 08/16/17 09:00 126/80 Mechanical Ventilator 08/16/17 08:00 98.1 08/14/17 07:21 10.0 Intake and Output 08/15/17 08/15/17 08/16/17 15:00 23:00 07:00 Intake Total 828.0 ml 445.0 ml 787.5 ml Output Total 670 ml 975 ml 810 ml Balance 158.0 ml -530.0 ml -22.5 ml Exam nad no mrg mechanical breath sounds abd soft no rashes Results Result Diagram: 08/16/170 08/16/17 0440 Results 24 hrs Laboratory Tests Test 08/15/17 18:01 08/16/17 00:03 08/16/17 04:40 08/16/17 05:20 Bedside Glucose 121 188 196 White Blood Count 6.0 # Red Blood Count 3.22 L Hemoglobin 7.5 L Hematocrit 24.5 L Mean Corpuscular Volume 76.1 L Mean Corpuscular Hemoglobin 23.3 L Mean Corpuscular Hemoglobin Concent 30.6 L Red Cell Distribution Width 19.8 H Platelet Count 309 Mean Platelet Volume 11.0 H Neutrophils % 53.9 Lymphocytes % 28.8 Monocytes % 6.8 Eosinophils % 9.3 H Basophils % 0.5 Nucleated Red Blood Cells % 0.0 Neutrophils # 3.2 Lymphocytes # 1.7 Monocytes # 0.4 Eosinophils # 0.6 H Basophils # 0.0 Nucleated Red Blood Cells # 0.0 Sodium Level 140 Potassium Level 3.1 L Chloride Level 104 Carbon Dioxide Level 27 Anion Gap 12 Blood Urea Nitrogen 9 # Creatinine 0.49 Glucose Level 176 Calcium Level 8.9 Test 08/16/17 08:35 08/16/17 11:44 08/16/17 12:23 Bedside Glucose 195 192 207 Medications Medications Current Medications Fentanyl/Dextrose (D5W) 100 ml @ 2.5 mls/hr TITRATE IV Last administered on 09:43; Admin Dose 2.5 MLS/HR; Start 08/13/17 at 21:00 Ondansetron HCl (Zofran Inj) 4 mg Q6H PRN IV NAUSEA AND/OR VOMITING; Start at 23:00 Acetaminophen (Tylenol Supp) 650 mg Q4H PRN [place] PAIN LEVEL 1-3 OR FEVER Last administered on 08/14/17 05:38; Admin Dose 650 MG; Start 08/13/17 at 23:00 Morphine Sulfate (morphine) 2 mg Q4H PRN IV PAIN LEVEL 7-10; Start 08/13/17 at 23:00 Heparin Sodium (Porcine) 5000 unit 5,000 unit Q12 SC Last administered on 08:54; Admin Dose 5,000 UNIT; Start 08/14/17 at 09:00 Piperacillin Sod/ Tazobactam Sod (Zosyn 3.375gm/ 100 ml (Pmx)) 100 ml @ 200 mls /hr Q6 IVPB Last administered on 08/16/17 11:42; Admin Dose 200 MLS/HR; Start 08/13/17 at 00:00 Ascorbic Acid (Vitamin C) 500 mg DAILY GTB Last administered on 08/16/17 08:50 ; Admin Dose 500 MG; Start 08/14/17 at 09:00 Clopidogrel Bisulfate (plaVIX) 75 mg DAILY GTB Last administered on 08/16/17 08:50; Admin Dose 75 MG; Start 08/14/17 at 09:00 Levetiracetam (Keppra Liquid) 500 mg BID GTB Last administered on 08/16/17 08: 50; Admin Dose 500 MG; Start 08/13/17 at 23:00 Zinc Sulfate (Zinc Sulfate) 220 mg DAILY GTB Last administered on 08/16/17 08: 50; Admin Dose 220 MG; Start 08/14/17 at 09:00 Miscellaneous Information 1 ea NOTE XX ; Start 08/14/17 at 00:30 Glucose (Glutose) 15 gm Q15M PRN PO DECREASED GLUCOSE; Start 08/14/17 at 00:30 Glucose (Glutose) 22.5 gm Q15M PRN PO DECREASED GLUCOSE; Start 08/14/17 at 00: 30 Dextrose (D50w Syringe) 25 ml Q15M PRN IV DECREASED GLUCOSE; Start 08/14/17 at 00:30 Dextrose (D50w Syringe) 50 ml Q15M PRN IV DECREASED GLUCOSE; Start 08/14/17 at 00:30 Glucagon (Glucagen) 1 mg Q15M PRN IM DECREASED GLUCOSE; Start 08/14/17 at 00: 30 Glucose 15 gm 15 gm Q15M PRN BUCCAL DECREASED GLUCOSE; Start 08/14/17 at 00:30 Vancomycin HCl/ Dextrose/Water (Vancocin/D5W) 150 ml @ 75 mls/hr Q12H IVPB Last administered on 08/16/17 11:42; Admin Dose 75 MLS/HR; Start 08/14/17 at 12:00 Bisacodyl (Dulcolax) 10 mg DAILY PRN PO CONSTIPATION; Start 08/14/17 at 14:00 Losartan Potassium (Cozaar) 100 mg QHS GTB Last administered on 08/15/17 20: 46; Admin Dose 100 MG; Start 08/14/17 at 21:00 Magnesium Hydroxide (Milk Of Mag) 30 ml DAILY PRN GTB CONSTIPATION Last administered on 08/16/17 11:48; Admin Dose 30 ML; Start 08/14/17 at 14:00 Miscellaneous Information [facility] This patient valenzuela... PRN PRN XX WOUND CARE; Start 08/14/17 at 14:30 Lansoprazole (Prevacid) 30 mg DAILY@06 GTB Last administered on 08/16/17 06:09 ; Admin Dose 30 MG; Start 08/15/17 at 06:00 Insulin Detemir (Levemir) 40 unit DAILY SC Last administered on 08/16/17 08:55 ; Admin Dose 40 UNIT; Start 08/15/17 at 09:00 Collagenase (Santyl) 1 applic DAILY TOP Last administered on 08/16/17 08:56; Admin Dose 1 APPLIC; Start 08/15/17 at 15:00 Insulin Aspart NOVOLOG *MILD* ALGORI... Q4 SC Last administered on 08/16/17 12 :26; Admin Dose 2 UNIT; Start 08/16/17 at 05:00 Potassium Chloride (KCl 40 MEQ/250 ML NS) 250 ml @ 62.5 mls/hr Q4H IVPB Last administered on 08/16/17 10:35; Admin Dose 62.5 MLS/HR; Start 08/16/17 at 06:30 ; Stop 08/16/17 at 14:29 LUDA MORENO MD Aug 16, 2017 13:48
[2017-08-16] MEDS: FENTAnyl (DRIP) 1000 mcg/100mL 100 ML IV SCH (17:02)
[2017-08-16 18:17] LABS: CALCIUM 8.8 mg/dl (8.4-10.2); CREATININE 0.49 mg/dl (0.44-1.00); MAGNESIUM 2.4 mg/dl (1.7-2.5); PHOSPHORUS 2.5 mg/dl (2.5-4.9)
[2017-08-16] MEDS: LOSARTAN 50 MG TAB GTB SCH (20:50)
[2017-08-17] VITALS (34 sets, daily range): BP systolic 119–165; BP diastolic 53–99; PULSE 61–130; RESP 14–17
[2017-08-17] MEDS: PIPER-TAZO 3.375 GM IV (PMX) 100 ML IVPB SCH ×3 (00:29→12:43)
[2017-08-17] MEDS: INSULIN ASPART [NOVOLOG] 3 ML PEN SC SCH ×6 (00:29→20:17)
[2017-08-17 05:11] LABS: BASOPHILS % 0.3 % (0.0-2.0); EOSINOPHILS # 0.7 10^3/ul (0.0-0.5); EOSINOPHILS % 9.8 % (0.0-7.0); HEMATOCRIT 27.1 % (37.0-47.0); LYMPHOCYTES # 2.1 10^3/ul (0.8-2.9); LYMPHOCYTES % 31.8 % (15.0-51.0); MEAN CORPUSCULAR HEMOGLOBIN 22.7 pg (29.0-33.0); MEAN CORPUSCULAR HGB CONC 29.5 g/dl (32.0-37.0); MONOCYTE # 0.5 10^3/ul (0.3-0.9); MONOCYTES % 7.3 % (0.0-11.0); NEUTROPHIL # 3.3 10^3/ul (1.6-7.5); NEUTROPHILS % 50.3 % (39.0-77.0); PLATELET COUNT 306 10^3/UL (140-415); RED BLOOD COUNT 3.52 10^6/ul (4.20-5.40); RED CELL DISTRIBUTION WIDTH 19.7 % (11.5-14.5); WHITE BLOOD COUNT 6.6 10^3/ul (4.8-10.8)
[2017-08-17] MEDS: LANSOPRAZOLE 30 MG CAP GTB SCH (05:33)
[2017-08-17 05:41] LABS: CALCIUM 9.2 mg/dl (8.4-10.2); CREATININE 0.55 mg/dl (0.44-1.00); POTASSIUM 3.8 mmol/L (3.5-5.1)
[2017-08-17] MEDS: FENTAnyl (DRIP) 1000 mcg/100mL 100 ML IV SCH ×3 (06:21→22:43)
[2017-08-17] MEDS: LEVETIRACETAM (100 MG/ML) 5ML CUP GTB SCH ×2 (09:14→20:14)
[2017-08-17] MEDS: ZINC SULFATE 220 MG CAP GTB SCH (09:14)
[2017-08-17] MEDS: ASCORBIC ACID 500 MG TAB GTB SCH (09:15)
[2017-08-17] MEDS: CLOPIDOGREL 75 MG TAB GTB SCH (09:15)
[2017-08-17] MEDS: COLLAGENASE 30 GM TUBE TOP SCH (09:26)
[2017-08-17] MEDS: HEPARIN 5,000 UNIT/0.5 ML VIAL SC SCH ×2 (09:26→20:25)
[2017-08-17] MEDS: INSULIN DETEMIR [LEVEMIR] 3ML CART SC SCH (09:42)
--- NOTE | 2017-08-17 11:00 | CONS ---
Date/Time of Note Date/Time of Note DATE: 08/17/17 TIME: 10:57 Assessment/Plan Assessment/Plan Additional Assessment/Plan Ventilator setting; AC of 16, tidal volume 500, PEEP of 5, 30% FiO2. Assessment and recommendations; 1. Patient admitted with bilateral bronchopneumonia currently on appropriate broad-spectrum antibiotic coverage. 2. Advanced dementia. 3. Persistent severe hypoventilation on CPAP mode that possibly could be the etiology for recent respiratory failure event. 4. Status post G-tube placement in the past. 5. Anemia. Continue current supportive care. Prognosis is very poor. Patient likely will need to have a tracheostomy performed. Consultation Date/Type/Reason Admit Date/Time Aug 13, 2017 at 22:40 Initial Consult Date 08/14/17 Type of Consultation: Pulmonary/critical care 24 HR Interval Summary Free Text/Dictation Patient's condition remains critical. Patient has been unable to be weaned off from invasive mechanical ventilation due to severe hypoxemia/apnea whenever patient is switched over to CPAP mode. Patient however is awake and has remained hemodynamically stable. General exam; elderly woman, awake, orally intubated, unresponsive to any commands. Currently in no distress. Exam/Review of Systems Vital Signs Vitals Vital Signs Date Time Temp Pulse Resp B/P Pulse Ox O2 Delivery O2 Flow Rate FiO2 08/17/17 08:00 62 08/17/17 06:00 16 132/53 100 Mechanical Ventilator 08/17/17 04:50 30 08/17/17 04:00 98.8 08/14/17 07:21 10.0 Intake and Output 08/16/17 08/16/17 08/17/17 15:00 23:00 07:00 Intake Total 1147.5 ml 567.5 ml 717.5 ml Output Total 1080 ml 595 ml 320 ml Balance 67.5 ml -27.5 ml 397.5 ml Exam HEENT exam; supple neck, no JVD. No lymphadenopathy. Midline trachea. No thyromegaly. Orally intubated. Patient has a multiple carious teeth. Chest exam; diminished but clear breath sounds. S1-S2 audible, no murmurs. Regular rhythm. Abdomen exam; soft, G-tube in place. Bowel sounds audible. No organomegaly. Abdomen is nondistended. Extremity exam; no peripheral edema. [facility] [employer] exam; patient awake but does not follow any commands. Results Result Diagram: 08/17/17 0430 08/17/17 0430 Results 24 hrs Laboratory Tests Test 08/16/17 11:44 08/16/17 12:23 08/16/17 17:06 08/16/17 17:11 Bedside Glucose 192 207 152 Sodium Level 142 Potassium Level 4.0 Chloride Level 105 Carbon Dioxide Level 26 Anion Gap 15 Blood Urea Nitrogen 8 Creatinine 0.49 Glucose Level 143 Calcium Level 8.8 Phosphorus Level 2.5 Magnesium Level 2.4 Test 08/16/17 20:47 08/16/17 23:57 08/17/17 04:30 08/17/17 05:31 Bedside Glucose 115 157 147 White Blood Count 6.6 Red Blood Count 3.52 L Hemoglobin 8.0 L Hematocrit 27.1 L Mean Corpuscular Volume 77.0 L Mean Corpuscular Hemoglobin 22.7 L Mean Corpuscular Hemoglobin Concent 29.5 L Red Cell Distribution Width 19.7 H Platelet Count 306 Mean Platelet Volume 11.0 H Neutrophils % 50.3 Lymphocytes % 31.8 Monocytes % 7.3 Eosinophils % 9.8 H Basophils % 0.3 Nucleated Red Blood Cells % 0.0 Neutrophils # 3.3 Lymphocytes # 2.1 Monocytes # 0.5 Eosinophils # 0.7 H Basophils # 0.0 Nucleated Red Blood Cells # 0.0 Sodium Level 142 Potassium Level 3.8 Chloride Level 108 Carbon Dioxide Level 27 Anion Gap 11 Blood Urea Nitrogen 12 Creatinine 0.55 Glucose Level 135 Calcium Level 9.2 Test 08/17/17 08:08 08/17/17 09:40 Bedside Glucose 193 182 Medications Medications Current Medications Ondansetron HCl (Zofran Inj) 4 mg Q6H PRN IV NAUSEA AND/OR VOMITING; Start at 23:00 Acetaminophen (Tylenol Supp) 650 mg Q4H PRN [place] PAIN LEVEL 1-3 OR FEVER Last administered on 08/14/17 05:38; Admin Dose 650 MG; Start 08/13/17 at 23:00 Morphine Sulfate (morphine) 2 mg Q4H PRN IV PAIN LEVEL 7-10; Start 08/13/17 at 23:00 Heparin Sodium (Porcine) 5000 unit 5,000 unit Q12 SC Last administered on 09:26; Admin Dose 5,000 UNIT; Start 08/14/17 at 09:00 Piperacillin Sod/ Tazobactam Sod (Zosyn 3.375gm/ 100 ml (Pmx)) 100 ml @ 200 mls /hr Q6 IVPB Last administered on 08/17/17 05:33; Admin Dose 200 MLS/HR; Start 08/13/17 at 00:00; Stop 08/20/17 at 23:59 Ascorbic Acid (Vitamin C) 500 mg DAILY GTB Last administered on 08/17/17 09:15 ; Admin Dose 500 MG; Start 08/14/17 at 09:00 Clopidogrel Bisulfate (plaVIX) 75 mg DAILY GTB Last administered on 08/17/17 09:15; Admin Dose 75 MG; Start 08/14/17 at 09:00 Levetiracetam (Keppra Liquid) 500 mg BID GTB Last administered on 08/17/17 09: 14; Admin Dose 500 MG; Start 08/13/17 at 23:00 Zinc Sulfate (Zinc Sulfate) 220 mg DAILY GTB Last administered on 08/17/17 09: 14; Admin Dose 220 MG; Start 08/14/17 at 09:00 Miscellaneous Information 1 ea NOTE XX ; Start 08/14/17 at 00:30 Glucose (Glutose) 15 gm Q15M PRN PO DECREASED GLUCOSE; Start 08/14/17 at 00:30 Glucose (Glutose) 22.5 gm Q15M PRN PO DECREASED GLUCOSE; Start 08/14/17 at 00: 30 Dextrose (D50w Syringe) 25 ml Q15M PRN IV DECREASED GLUCOSE; Start 08/14/17 at 00:30 Dextrose (D50w Syringe) 50 ml Q15M PRN IV DECREASED GLUCOSE; Start 08/14/17 at 00:30 Glucagon (Glucagen) 1 mg Q15M PRN IM DECREASED GLUCOSE; Start 08/14/17 at 00: 30 Glucose (Glutose) 15 gm Q15M PRN BUCCAL DECREASED GLUCOSE; Start 08/14/17 at 00:30 Bisacodyl (Dulcolax) 10 mg DAILY PRN PO CONSTIPATION; Start 08/14/17 at 14:00 Losartan Potassium (Cozaar) 100 mg QHS GTB Last administered on 08/16/17 20:50 ; Admin Dose 100 MG; Start 08/14/17 at 21:00 Magnesium Hydroxide (Milk Of Mag) 30 ml DAILY PRN GTB CONSTIPATION Last administered on 08/16/17 11:48; Admin Dose 30 ML; Start 08/14/17 at 14:00 Miscellaneous Information (Pending Santyl Order For Wound Care) This patient valenzuela... PRN PRN XX WOUND CARE; Start 08/14/17 at 14:30 Lansoprazole (Prevacid) 30 mg DAILY@06 GTB Last administered on 08/17/17 05:33 ; Admin Dose 30 MG; Start 08/15/17 at 06:00 Insulin Detemir (Levemir) 40 unit DAILY SC Last administered on 08/17/17 09:42 ; Admin Dose 40 UNIT; Start 08/15/17 at 09:00 Collagenase (Santyl) 1 applic DAILY TOP Last administered on 08/17/17 09:26; Admin Dose 1 APPLIC; Start 08/15/17 at 15:00 Insulin Aspart NOVOLOG *MILD* ALGORI... Q4 SC Last administered on 08/17/17 09 :43; Admin Dose 2 UNIT; Start 08/16/17 at 05:00 Fentanyl (Sublimaze) 100 ml @ 2.5 mls/hr TITRATE IV Last administered on 06:21; Admin Dose 7.5 MLS/HR; Start 08/16/17 at 16:00 ADRIANA TOVAR Aug 17, 2017 11:00
[2017-08-17] MEDS: MAGNESIUM HYDROXIDE 30ML CUP GTB PRN (13:58)
--- NOTE | 2017-08-17 15:03 | PN ---
Date/Time of Note Date/Time of Note DATE: 08/17/17 TIME: 14:24 Assessment/Plan VTE Prophylaxis VTE Prophylaxis Intervention: SCD's Lines/Catheters IV Catheter Type (from Nrsg): Central Line Central line still needed: No Urinary Cath still in place: Yes Reason Cath still needed: other (indicate) (critically ill) Assessment/Plan Assessment/Plan 71 yo F with pmhx chronic encephalopathy and dysphagia 2/2 old CVA with chronic g tube admitted for sepsis (tachycardia/fever) possibly 2/2 healthcare associated aspiration pneumonia PLAN continue broad spectrum abx -cont zosyn. sputum culture reviewed. fransisca likely indicative of colonization given no nodules on imaging and pt is not immunocompromised h/o CVA: cont home BP and pain meds DM cont home insulin, +SSI dysphagia: cont TFs palliative business objects consultant working on goals of care-->pt has already been intubated for 4 days and does not show significant improvement in respiratory status.Palliative business objects consultant to discuss with family if they would want pt's trached critical care time: 30 minutes Subjective 24 Hr Interval Summary Free Text/Dictation Per discussion with nurse, pt failing her PSTs because of low TVs Exam/Review of Systems Vital Signs Vitals Vital Signs Date Time Temp Pulse Resp B/P Pulse Ox O2 Delivery O2 Flow Rate FiO2 08/17/17 14:00 62 16 135/66 100 Mechanical Ventilator 08/17/17 13:49 30 08/17/17 12:00 98.4 08/14/17 07:21 10.0 Intake and Output 08/16/17 08/16/17 08/17/17 15:00 23:00 07:00 Intake Total 1147.5 ml 567.5 ml 757.5 ml Output Total 1080 ml 595 ml 395 ml Balance 67.5 ml -27.5 ml 362.5 ml Exam intuabted no mrg mechanical breath sounds abd soft no rashes sputum culture results reviewed, klebsiella is ESBL but S to zosyn Results Result Diagram: 08/17/1742908/17/17 043 Results 24 hrs Laboratory Tests Test 08/16/17 17:06 08/16/17 17:11 08/16/17 20:47 08/16/17 23:57 Sodium Level 142 Potassium Level 4.0 Chloride Level 105 Carbon Dioxide Level 26 Anion Gap 15 Blood Urea Nitrogen 8 Creatinine 0.49 Glucose Level 143 Calcium Level 8.8 Phosphorus Level 2.5 Magnesium Level 2.4 Bedside Glucose 152 115 157 Test 08/17/17 04:30 08/17/17 05:31 08/17/17 08:08 08/17/17 09:40 White Blood Count 6.6 Red Blood Count 3.52 L Hemoglobin 8.0 L Hematocrit 27.1 L Mean Corpuscular Volume 77.0 L Mean Corpuscular Hemoglobin 22.7 L Mean Corpuscular Hemoglobin Concent 29.5 L Red Cell Distribution Width 19.7 H Platelet Count 306 Mean Platelet Volume 11.0 H Neutrophils % 50.3 Lymphocytes % 31.8 Monocytes % 7.3 Eosinophils % 9.8 H Basophils % 0.3 Nucleated Red Blood Cells % 0.0 Neutrophils # 3.3 Lymphocytes # 2.1 Monocytes # 0.5 Eosinophils # 0.7 H Basophils # 0.0 Nucleated Red Blood Cells # 0.0 Sodium Level 142 Potassium Level 3.8 Chloride Level 108 Carbon Dioxide Level 27 Anion Gap 11 Blood Urea Nitrogen 12 Creatinine 0.55 Glucose Level 135 Calcium Level 9.2 Bedside Glucose 147 193 182 Test 08/17/17 12:39 Bedside Glucose 149 Medications Medications Current Medications Ondansetron HCl (Zofran Inj) 4 mg Q6H PRN IV NAUSEA AND/OR VOMITING; Start at 23:00 Acetaminophen (Tylenol Supp) 650 mg Q4H PRN [place] PAIN LEVEL 1-3 OR FEVER Last administered on 08/14/17 05:38; Admin Dose 650 MG; Start 08/13/17 at 23:00 Morphine Sulfate (morphine) 2 mg Q4H PRN IV PAIN LEVEL 7-10; Start 08/13/17 at 23:00 Heparin Sodium (Porcine) 5000 unit 5,000 unit Q12 SC Last administered on 09:26; Admin Dose 5,000 UNIT; Start 08/14/17 at 09:00 Piperacillin Sod/ Tazobactam Sod (Zosyn 3.375gm/ 100 ml (Pmx)) 100 ml @ 200 mls /hr Q6 IVPB Last administered on 08/17/17 12:43; Admin Dose 200 MLS/HR; Start 08/13/17 at 00:00; Stop 08/20/17 at 23:59 Ascorbic Acid (Vitamin C) 500 mg DAILY GTB Last administered on 08/17/17 09:15 ; Admin Dose 500 MG; Start 08/14/17 at 09:00 Clopidogrel Bisulfate (plaVIX) 75 mg DAILY GTB Last administered on 08/17/17 09:15; Admin Dose 75 MG; Start 08/14/17 at 09:00 Levetiracetam (Keppra Liquid) 500 mg BID GTB Last administered on 08/17/17 09: 14; Admin Dose 500 MG; Start 08/13/17 at 23:00 Zinc Sulfate (Zinc Sulfate) 220 mg DAILY GTB Last administered on 08/17/17 09: 14; Admin Dose 220 MG; Start 08/14/17 at 09:00 Miscellaneous Information 1 ea NOTE XX ; Start 08/14/17 at 00:30 Glucose (Glutose) 15 gm Q15M PRN PO DECREASED GLUCOSE; Start 08/14/17 at 00:30 Glucose (Glutose) 22.5 gm Q15M PRN PO DECREASED GLUCOSE; Start 08/14/17 at 00: 30 Dextrose (D50w Syringe) 25 ml Q15M PRN IV DECREASED GLUCOSE; Start 08/14/17 at 00:30 Dextrose (D50w Syringe) 50 ml Q15M PRN IV DECREASED GLUCOSE; Start 08/14/17 at 00:30 Glucagon (Glucagen) 1 mg Q15M PRN IM DECREASED GLUCOSE; Start 08/14/17 at 00: 30 Glucose (Glutose) 15 gm Q15M PRN BUCCAL DECREASED GLUCOSE; Start 08/14/17 at 00:30 Bisacodyl (Dulcolax) 10 mg DAILY PRN PO CONSTIPATION Last administered on 13:58; Admin Dose 10 MG; Start 08/14/17 at 14:00 Losartan Potassium (Cozaar) 100 mg QHS GTB Last administered on 08/16/17 20:50 ; Admin Dose 100 MG; Start 08/14/17 at 21:00 Magnesium Hydroxide (Milk Of Mag) 30 ml DAILY PRN GTB CONSTIPATION Last administered on 08/17/17 13:58; Admin Dose 30 ML; Start 08/14/17 at 14:00 Miscellaneous Information [facility] This patient valenzuela... PRN PRN XX WOUND CARE; Start 08/14/17 at 14:30 Lansoprazole (Prevacid) 30 mg DAILY@06 GTB Last administered on 08/17/17 05:33 ; Admin Dose 30 MG; Start 08/15/17 at 06:00 Insulin Detemir (Levemir) 40 unit DAILY SC Last administered on 08/17/17 09:42 ; Admin Dose 40 UNIT; Start 08/15/17 at 09:00 Collagenase (Santyl) 1 applic DAILY TOP Last administered on 08/17/17 09:26; Admin Dose 1 APPLIC; Start 08/15/17 at 15:00 Insulin Aspart NOVOLOG *MILD* ALGORI... Q4 SC Last administered on 08/17/17 12 :41; Admin Dose 1 UNIT; Start 08/16/17 at 05:00 Fentanyl (Sublimaze) 100 ml @ 2.5 mls/hr TITRATE IV Last administered on 10:00; Admin Dose 10 MLS/HR; Start 08/16/17 at 16:00 LUDA MORENO MD Aug 17, 2017 15:03
[2017-08-17] MEDS: PIPER-TAZO 3.375 GM IV (PMX) 50 ML IVPB SCH ×2 (17:17→23:59)
[2017-08-17] MEDS: LOSARTAN 50 MG TAB GTB SCH (20:15)
[2017-08-18] VITALS (35 sets, daily range): BP systolic 106–169; BP diastolic 52–75; PULSE 60–92; RESP 14–33
[2017-08-18] MEDS: INSULIN ASPART [NOVOLOG] 3 ML PEN SC SCH ×6 (00:24→20:47)
[2017-08-18 05:09] LABS: BASOPHILS % 0.3 % (0.0-2.0); EOSINOPHILS # 0.7 10^3/ul (0.0-0.5); EOSINOPHILS % 9.4 % (0.0-7.0); HEMATOCRIT 26.2 % (37.0-47.0); HEMOGLOBIN 7.8 g/dl (12.0-16.0); LYMPHOCYTES # 2.1 10^3/ul (0.8-2.9); LYMPHOCYTES % 30.4 % (15.0-51.0); MEAN CORPUSCULAR HEMOGLOBIN 22.7 pg (29.0-33.0); MEAN CORPUSCULAR HGB CONC 29.8 g/dl (32.0-37.0); MEAN CORPUSCULAR VOLUME 76.2 fl (82.0-101.0); MONOCYTE # 0.4 10^3/ul (0.3-0.9); MONOCYTES % 6.3 % (0.0-11.0); NEUTROPHIL # 3.7 10^3/ul (1.6-7.5); NEUTROPHILS % 53.2 % (39.0-77.0); PLATELET COUNT 310 10^3/UL (140-415); RED BLOOD COUNT 3.44 10^6/ul (4.20-5.40); RED CELL DISTRIBUTION WIDTH 19.9 % (11.5-14.5)
[2017-08-18] MEDS: LANSOPRAZOLE 30 MG CAP GTB SCH (05:19)
[2017-08-18] MEDS: PIPER-TAZO 3.375 GM IV (PMX) 50 ML IVPB SCH ×3 (05:19→18:40)
[2017-08-18 05:56] LABS: CALCIUM 8.6 mg/dl (8.4-10.2); CREATININE 0.57 mg/dl (0.44-1.00); MAGNESIUM 2.5 mg/dl (1.7-2.5); PHOSPHORUS 3.4 mg/dl (2.5-4.9); POTASSIUM 3.5 mmol/L (3.5-5.1)
--- NOTE | 2017-08-18 07:34 | CONS ---
Date/Time of Note Date/Time of Note DATE: 08/18/17 TIME: 07:31 Consult Date/Type/Reason Admit Date/Time Aug 13, 2017 at 22:40 Initial Consult Date 08/14/17 Type of Consultation: Palliative Care Subjective Placed a call to daughter today... no answer, I left a call back number and will suggest comfort measures today. Objective Vital Signs Date Time Temp Pulse Resp B/P Pulse Ox O2 Delivery O2 Flow Rate FiO2 08/18/17 07:00 69 14 139/75 100 Mechanical Ventilator 08/18/17 05:00 30 08/18/17 04:00 99.0 08/14/17 07:21 10.0 Intake and Output 08/17/17 08/17/17 08/18/17 15:00 23:00 07:00 Intake Total 555.0 ml 455.0 ml 450.0 ml Output Total 590 ml 465 ml 270 ml Balance -35.0 ml -10.0 ml 180.0 ml Results/Medications Result Diagram: 08/18/17 0300 08/18/17 0300 Results 24 hrs Laboratory Tests Test 08/17/17 08:08 08/17/17 09:40 08/17/17 12:39 08/17/17 17:18 Bedside Glucose 193 182 149 95 Test 08/17/17 20:16 08/18/17 00:23 08/18/17 03:00 08/18/17 05:18 Bedside Glucose 120 121 179 White Blood Count 7.0 Red Blood Count 3.44 L Hemoglobin 7.8 L Hematocrit 26.2 L Mean Corpuscular Volume 76.2 L Mean Corpuscular Hemoglobin 22.7 L Mean Corpuscular Hemoglobin Concent 29.8 L Red Cell Distribution Width 19.9 H Platelet Count 310 Mean Platelet Volume 12.0 H Neutrophils % 53.2 Lymphocytes % 30.4 Monocytes % 6.3 Eosinophils % 9.4 H Basophils % 0.3 Nucleated Red Blood Cells % 0.0 Neutrophils # 3.7 Lymphocytes # 2.1 Monocytes # 0.4 Eosinophils # 0.7 H Basophils # 0.0 Nucleated Red Blood Cells # 0.0 Sodium Level 140 Potassium Level 3.5 Chloride Level 105 Carbon Dioxide Level 25 Anion Gap 14 Blood Urea Nitrogen 11 Creatinine 0.57 Glucose Level 142 Calcium Level 8.6 Phosphorus Level 3.4 Magnesium Level 2.5 Medications Current Medications Ondansetron HCl (Zofran Inj) 4 mg Q6H PRN IV NAUSEA AND/OR VOMITING; Start at 23:00 Acetaminophen (Tylenol Supp) 650 mg Q4H PRN [place] PAIN LEVEL 1-3 OR FEVER Last administered on 08/14/17 05:38; Admin Dose 650 MG; Start 08/13/17 at 23:00 Morphine Sulfate (morphine) 2 mg Q4H PRN IV PAIN LEVEL 7-10; Start 08/13/17 at 23:00 Heparin Sodium (Porcine) (Heparin (5000 Units/0.5 ml)) 5,000 unit Q12 SC Last administered on 08/17/17 20:25; Admin Dose 5,000 UNIT; Start 08/14/17 at 09:00 Ascorbic Acid (Vitamin C) 500 mg DAILY GTB Last administered on 08/17/17 09:15 ; Admin Dose 500 MG; Start 08/14/17 at 09:00 Clopidogrel Bisulfate (plaVIX) 75 mg DAILY GTB Last administered on 08/17/17 09:15; Admin Dose 75 MG; Start 08/14/17 at 09:00 Levetiracetam (Keppra Liquid) 500 mg BID GTB Last administered on 08/17/17 20: 14; Admin Dose 500 MG; Start 08/13/17 at 23:00 Zinc Sulfate (Zinc Sulfate) 220 mg DAILY GTB Last administered on 08/17/17 09: 14; Admin Dose 220 MG; Start 08/14/17 at 09:00 Miscellaneous Information 1 ea NOTE XX ; Start 08/14/17 at 00:30 Glucose (Glutose) 15 gm Q15M PRN PO DECREASED GLUCOSE; Start 08/14/17 at 00:30 Glucose (Glutose) 22.5 gm Q15M PRN PO DECREASED GLUCOSE; Start 08/14/17 at 00: 30 Dextrose (D50w Syringe) 25 ml Q15M PRN IV DECREASED GLUCOSE; Start 08/14/17 at 00:30 Dextrose (D50w Syringe) 50 ml Q15M PRN IV DECREASED GLUCOSE; Start 08/14/17 at 00:30 Glucagon (Glucagen) 1 mg Q15M PRN IM DECREASED GLUCOSE; Start 08/14/17 at 00: 30 Glucose (Glutose) 15 gm Q15M PRN BUCCAL DECREASED GLUCOSE; Start 08/14/17 at 00:30 Bisacodyl (Dulcolax) 10 mg DAILY PRN PO CONSTIPATION Last administered on 13:58; Admin Dose 10 MG; Start 08/14/17 at 14:00 Losartan Potassium (Cozaar) 100 mg QHS GTB Last administered on 08/17/17 20:15 ; Admin Dose 100 MG; Start 08/14/17 at 21:00 Magnesium Hydroxide (Milk Of Mag) 30 ml DAILY PRN GTB CONSTIPATION Last administered on 08/17/17 13:58; Admin Dose 30 ML; Start 08/14/17 at 14:00 Miscellaneous Information (Pending Santyl Order For Wound Care) This patient valenzuela... PRN PRN XX WOUND CARE; Start 08/14/17 at 14:30 Lansoprazole (Prevacid) 30 mg DAILY@06 GTB Last administered on 08/18/17 05:19 ; Admin Dose 30 MG; Start 08/15/17 at 06:00 Insulin Detemir (Levemir) 40 unit DAILY SC Last administered on 08/17/17 09:42 ; Admin Dose 40 UNIT; Start 08/15/17 at 09:00 Collagenase (Santyl) 1 applic DAILY TOP Last administered on 08/17/17 09:26; Admin Dose 1 APPLIC; Start 08/15/17 at 15:00 Insulin Aspart NOVOLOG *MILD* ALGORI... Q4 SC Last administered on 08/18/17 05 :27; Admin Dose 1 UNIT; Start 08/16/17 at 05:00 Fentanyl 100 ml @ 2.5 mls/hr TITRATE IV Last administered on 08/17/17 22:43; Admin Dose 5 MLS/HR; Start 08/16/17 at 16:00 Piperacillin Sod/ Tazobactam Sod (Zosyn 3.375gm/ 50 ml (Pmx)) 50 ml @ 100 mls/ hr Q6 IVPB Last administered on 08/18/17 05:19; Admin Dose 100 MLS/HR; Start 08/17/17 at 18:00; Stop 08/20/17 at 23:59 PARMJIT AYALA Aug 18, 2017 07:34
[2017-08-18] MEDS: MAGNESIUM HYDROXIDE 30ML CUP GTB PRN (08:48)
[2017-08-18] MEDS: LEVETIRACETAM (100 MG/ML) 5ML CUP GTB SCH ×2 (08:48→20:48)
[2017-08-18] MEDS: ZINC SULFATE 220 MG CAP GTB SCH (08:49)
[2017-08-18] MEDS: ASCORBIC ACID 500 MG TAB GTB SCH (08:49)
[2017-08-18] MEDS: CLOPIDOGREL 75 MG TAB GTB SCH (08:49)
[2017-08-18] MEDS: HEPARIN 5,000 UNIT/0.5 ML VIAL SC SCH ×2 (08:53→20:57)
[2017-08-18] MEDS: INSULIN DETEMIR [LEVEMIR] 3ML CART SC SCH (08:53)
[2017-08-18] MEDS: COLLAGENASE 30 GM TUBE TOP SCH (08:54)
--- NOTE | 2017-08-18 11:17 | CONS ---
Date/Time of Note Date/Time of Note DATE: 08/18/17 TIME: 11:14 Consult Date/Type/Reason Admit Date/Time Aug 13, 2017 at 22:40 Initial Consult Date 08/14/17 Type of Consultation: Pulmonary Subjective Open eyes makes eye contact but does not follow commands. Neurologically unchanged. Minimal secretions. Continues mechanical ventilation without hemodynamic compromise. Objective Vital Signs Date Time Temp Pulse Resp B/P Pulse Ox O2 Delivery O2 Flow Rate FiO2 08/18/17 10:00 73 16 145/69 98 Mechanical Ventilator 08/18/17 08:00 98.4 08/18/17 05:00 30 08/14/17 07:21 10.0 Intake and Output 08/17/17 08/17/17 08/18/17 15:00 23:00 07:00 Intake Total 555.0 ml 455.0 ml 450.0 ml Output Total 590 ml 465 ml 270 ml Balance -35.0 ml -10.0 ml 180.0 ml Exam PHYSICAL EXAMINATION GENERAL: Elderly lady appears comfortable at rest no acute distress VITAL SIGNS: see below. HEENT: Pupils equal, round, and reactive to light. CARDIAC: S1, S2, 1/6 systolic ejection murmur CHEST: Diminished air entry bilaterally. ABDOMEN: Mildly distended. Bowel sounds present no guarding or rebound EXTREMITIES: No cyanosis, clubbing edema +1 NEUROLOGIC: Generalized weakness Results/Medications Result Diagram: 08/18/17 0300 08/18/17 0300 Results 24 hrs Laboratory Tests Test 08/17/17 12:39 08/17/17 17:18 08/17/17 20:16 08/18/17 00:23 Bedside Glucose 149 95 120 121 Test 08/18/17 03:00 08/18/17 05:18 08/18/17 08:48 White Blood Count 7.0 Red Blood Count 3.44 L Hemoglobin 7.8 L Hematocrit 26.2 L Mean Corpuscular Volume 76.2 L Mean Corpuscular Hemoglobin 22.7 L Mean Corpuscular Hemoglobin Concent 29.8 L Red Cell Distribution Width 19.9 H Platelet Count 310 Mean Platelet Volume 12.0 H Neutrophils % 53.2 Lymphocytes % 30.4 Monocytes % 6.3 Eosinophils % 9.4 H Basophils % 0.3 Nucleated Red Blood Cells % 0.0 Neutrophils # 3.7 Lymphocytes # 2.1 Monocytes # 0.4 Eosinophils # 0.7 H Basophils # 0.0 Nucleated Red Blood Cells # 0.0 Sodium Level 140 Potassium Level 3.5 Chloride Level 105 Carbon Dioxide Level 25 Anion Gap 14 Blood Urea Nitrogen 11 Creatinine 0.57 Glucose Level 142 Calcium Level 8.6 Phosphorus Level 3.4 Magnesium Level 2.5 Bedside Glucose 179 203 Medications Current Medications Ondansetron HCl (Zofran Inj) 4 mg Q6H PRN IV NAUSEA AND/OR VOMITING; Start at 23:00 Acetaminophen (Tylenol Supp) 650 mg Q4H PRN [place] PAIN LEVEL 1-3 OR FEVER Last administered on 08/14/17 05:38; Admin Dose 650 MG; Start 08/13/17 at 23:00 Morphine Sulfate (morphine) 2 mg Q4H PRN IV PAIN LEVEL 7-10; Start 08/13/17 at 23:00 Heparin Sodium (Porcine) (Heparin (5000 Units/0.5 ml)) 5,000 unit Q12 SC Last administered on 08/18/17 08:53; Admin Dose 5,000 UNIT; Start 08/14/17 at 09:00 Ascorbic Acid (Vitamin C) 500 mg DAILY GTB Last administered on 08/18/17 08:49 ; Admin Dose 500 MG; Start 08/14/17 at 09:00 Clopidogrel Bisulfate (plaVIX) 75 mg DAILY GTB Last administered on 08/18/17 08:49; Admin Dose 75 MG; Start 08/14/17 at 09:00 Levetiracetam (Keppra Liquid) 500 mg BID GTB Last administered on 08/18/17 08: 48; Admin Dose 500 MG; Start 08/13/17 at 23:00 Zinc Sulfate (Zinc Sulfate) 220 mg DAILY GTB Last administered on 08/18/17 08: 49; Admin Dose 220 MG; Start 08/14/17 at 09:00 Miscellaneous Information 1 ea NOTE XX ; Start 08/14/17 at 00:30 Glucose (Glutose) 15 gm Q15M PRN PO DECREASED GLUCOSE; Start 08/14/17 at 00:30 Glucose (Glutose) 22.5 gm Q15M PRN PO DECREASED GLUCOSE; Start 08/14/17 at 00: 30 Dextrose (D50w Syringe) 25 ml Q15M PRN IV DECREASED GLUCOSE; Start 08/14/17 at 00:30 Dextrose (D50w Syringe) 50 ml Q15M PRN IV DECREASED GLUCOSE; Start 08/14/17 at 00:30 Glucagon (Glucagen) 1 mg Q15M PRN IM DECREASED GLUCOSE; Start 08/14/17 at 00: 30 Glucose (Glutose) 15 gm Q15M PRN BUCCAL DECREASED GLUCOSE; Start 08/14/17 at 00:30 Bisacodyl (Dulcolax) 10 mg DAILY PRN PO CONSTIPATION Last administered on 13:58; Admin Dose 10 MG; Start 08/14/17 at 14:00 Losartan Potassium (Cozaar) 100 mg QHS GTB Last administered on 08/17/17 20:15 ; Admin Dose 100 MG; Start 08/14/17 at 21:00 Magnesium Hydroxide (Milk Of Mag) 30 ml DAILY PRN GTB CONSTIPATION Last administered on 08/18/17 08:48; Admin Dose 30 ML; Start 08/14/17 at 14:00 Miscellaneous Information (Pending Santyl Order For Wound Care) This patient valenzuela... PRN PRN XX WOUND CARE; Start 08/14/17 at 14:30 Lansoprazole (Prevacid) 30 mg DAILY@06 GTB Last administered on 08/18/17 05:19 ; Admin Dose 30 MG; Start 08/15/17 at 06:00 Insulin Detemir (Levemir) 40 unit DAILY SC Last administered on 08/18/17 08:53 ; Admin Dose 40 UNIT; Start 08/15/17 at 09:00 Collagenase (Santyl) 1 applic DAILY TOP Last administered on 08/18/17 08:54; Admin Dose 1 APPLIC; Start 08/15/17 at 15:00 Insulin Aspart NOVOLOG *MILD* ALGORI... Q4 SC Last administered on 08/18/17 08 :54; Admin Dose 2 UNIT; Start 08/16/17 at 05:00 Fentanyl 100 ml @ 2.5 mls/hr TITRATE IV Last administered on 08/17/17 22:43; Admin Dose 5 MLS/HR; Start 08/16/17 at 16:00 Piperacillin Sod/ Tazobactam Sod (Zosyn 3.375gm/ 50 ml (Pmx)) 50 ml @ 100 mls/ hr Q6 IVPB Last administered on 11/3/17at 05:19; Admin Dose 100 MLS/HR; Start 08/17/17 at 18:00; Stop 08/20/17 at 23:59 Assessment/Plan Chief Complaint/Hosp Course Assessment 1. Hypoxemic respiratory failure, likely secondary to alveolar hypoventilation possible aspiration, Klebsiella pneumonia sensitive to Zosyn 2. History of CVA with advanced dementia. 3. Dysphagia Plan 1. CPAP trial decrease sedation as tolerated 2. Hypoxemic respiratory failure slowly improving 3. Continue current antibiotics. 4. Monitor H&H 5. Palliative care recommendations discussed plan of care Problems: CONI FERNANDEZ MD, [facility] Aug 18, 2017 11:17
[2017-08-18 12:09] LABS: AADO2 Arterial 63.9 mmHg (7.0-24.0); Allen Test ACCEPTAB; Arterial Base Excess -0.5 mmol/L (-3.0-3); Arterial COHb 0.3 % (0.0-3.0); Arterial Fraction of Oxyhgb 96.1 % (93.0-99.0); Arterial HCO3 24.9 mmol/L (22.0-26.0); Arterial MetHb 0.4 % (0.0-1.5); Arterial Total Hemglobin 11.4 g/dl (12.0-18.0); Blood Gas PS 10; MODE VENT - CPAP
--- NOTE | 2017-08-18 12:18 | CONS ---
Date/Time of Note Date/Time of Note DATE: 08/18/17 TIME: 12:16 Assessment/Plan Assessment/Plan Additional Assessment/Plan I have spoken with patient's daughter who lives in [place]. The last time she seen her mother was April of this year however she is aware the fact that she has not improved from a neurological standpoint since that time. Discuss ongoing level of care and she has decided to visit and should be in town Monday morning. Will schedule family conference at that time. Consultation Date/Type/Reason Admit Date/Time Aug 13, 2017 at 22:40 Initial Consult Date 08/14/17 Type of Consultation: Palliative care Exam/Review of Systems Vital Signs Vitals Vital Signs Date Time Temp Pulse Resp B/P Pulse Ox O2 Delivery O2 Flow Rate FiO2 08/18/17 10:00 73 16 145/69 98 Mechanical Ventilator 08/18/17 08:00 98.4 08/18/17 05:00 30 08/14/17 07:21 10.0 Intake and Output 08/17/17 08/17/17 08/18/17 15:00 23:00 07:00 Intake Total 555.0 ml 455.0 ml 450.0 ml Output Total 590 ml 465 ml 270 ml Balance -35.0 ml -10.0 ml 180.0 ml Results Result Diagram: 08/18/17 0300 08/18/17 0300 Results 24 hrs Laboratory Tests Test 08/17/17 12:39 08/17/17 17:18 08/17/17 20:16 08/18/17 00:23 Bedside Glucose 149 95 120 121 Test 08/18/17 03:00 08/18/17 05:18 08/18/17 08:48 08/18/17 11:30 White Blood Count 7.0 Red Blood Count 3.44 L Hemoglobin 7.8 L Hematocrit 26.2 L Mean Corpuscular Volume 76.2 L Mean Corpuscular Hemoglobin 22.7 L Mean Corpuscular Hemoglobin Concent 29.8 L Red Cell Distribution Width 19.9 H Platelet Count 310 Mean Platelet Volume 12.0 H Neutrophils % 53.2 Lymphocytes % 30.4 Monocytes % 6.3 Eosinophils % 9.4 H Basophils % 0.3 Nucleated Red Blood Cells % 0.0 Neutrophils # 3.7 Lymphocytes # 2.1 Monocytes # 0.4 Eosinophils # 0.7 H Basophils # 0.0 Nucleated Red Blood Cells # 0.0 Sodium Level 140 Potassium Level 3.5 Chloride Level 105 Carbon Dioxide Level 25 Anion Gap 14 Blood Urea Nitrogen 11 Creatinine 0.57 Glucose Level 142 Calcium Level 8.6 Phosphorus Level 3.4 Magnesium Level 2.5 Bedside Glucose 179 203 Blood Gas Specimen Source Blood arterial Arterial Blood Date Drawn 08/18/2017 11:50:48 AM Arterial Blood pH (Temp corrected) 7.369 Arterial Blood pCO2 (Temp correct) 44.2 Arterial Blood pO2 (Temp corrected) 98.1 Arterial Blood HCO3 24.9 Arterial Blood Base Excess -0.5 Arterial Blood Oxygen Saturation 96.8 Girish Test ACCEPTAB Arterial Blood Gas Puncture Site Right Radial Arterial Blood Carboxyhemoglobin 0.3 Arterial Blood Methemoglobin 0.4 Blood Gas A-a O2 Differential 63.9 H Oxyhemoglobin Percent 96.1 Total Hemoglobin 11.4 L Blood Gas Temperature 37.0 Blood Gas Actual Respiration Rate 17 Blood Gas Modality VENT - CPAP FiO2 30.0 Blood Gas Low PEEP Setting 5.0 Blood Gas Pressure Support 10 Blood Gas Notified Whom JLD Blood Gas Notified Time 08/18/2017 12:08:40 PM Medications Medications Current Medications Ondansetron HCl (Zofran Inj) 4 mg Q6H PRN IV NAUSEA AND/OR VOMITING; Start at 23:00 Acetaminophen (Tylenol Supp) 650 mg Q4H PRN [place] PAIN LEVEL 1-3 OR FEVER Last administered on 08/14/17 05:38; Admin Dose 650 MG; Start 08/13/17 at 23:00 Morphine Sulfate (morphine) 2 mg Q4H PRN IV PAIN LEVEL 7-10; Start 08/13/17 at 23:00 Heparin Sodium (Porcine) (Heparin (5000 Units/0.5 ml)) 5,000 unit Q12 SC Last administered on 08/18/17 08:53; Admin Dose 5,000 UNIT; Start 08/14/17 at 09:00 Ascorbic Acid (Vitamin C) 500 mg DAILY GTB Last administered on 08/18/17 08:49 ; Admin Dose 500 MG; Start 08/14/17 at 09:00 Clopidogrel Bisulfate (plaVIX) 75 mg DAILY GTB Last administered on 08/18/17 08:49; Admin Dose 75 MG; Start 08/14/17 at 09:00 Levetiracetam (Keppra Liquid) 500 mg BID GTB Last administered on 08/18/17 08: 48; Admin Dose 500 MG; Start 08/13/17 at 23:00 Zinc Sulfate (Zinc Sulfate) 220 mg DAILY GTB Last administered on 08/18/17 08: 49; Admin Dose 220 MG; Start 08/14/17 at 09:00 Miscellaneous Information 1 ea NOTE XX ; Start 08/14/17 at 00:30 Glucose (Glutose) 15 gm Q15M PRN PO DECREASED GLUCOSE; Start 08/14/17 at 00:30 Glucose (Glutose) 22.5 gm Q15M PRN PO DECREASED GLUCOSE; Start 08/14/17 at 00: 30 Dextrose (D50w Syringe) 25 ml Q15M PRN IV DECREASED GLUCOSE; Start 08/14/17 at 00:30 Dextrose (D50w Syringe) 50 ml Q15M PRN IV DECREASED GLUCOSE; Start 08/14/17 at 00:30 Glucagon (Glucagen) 1 mg Q15M PRN IM DECREASED GLUCOSE; Start 08/14/17 at 00: 30 Glucose (Glutose) 15 gm Q15M PRN BUCCAL DECREASED GLUCOSE; Start 08/14/17 at 00:30 Bisacodyl (Dulcolax) 10 mg DAILY PRN PO CONSTIPATION Last administered on 13:58; Admin Dose 10 MG; Start 08/14/17 at 14:00 Losartan Potassium (Cozaar) 100 mg QHS GTB Last administered on 08/17/17 20:15 ; Admin Dose 100 MG; Start 08/14/17 at 21:00 Magnesium Hydroxide (Milk Of Mag) 30 ml DAILY PRN GTB CONSTIPATION Last administered on 08/18/17 08:48; Admin Dose 30 ML; Start 08/14/17 at 14:00 Miscellaneous Information (Pending [facility] Order For Wound Care) This patient valenzuela... PRN PRN XX WOUND CARE; Start 08/14/17 at 14:30 Lansoprazole (Prevacid) 30 mg DAILY@06 GTB Last administered on 08/18/17 05:19 ; Admin Dose 30 MG; Start 08/15/17 at 06:00 Insulin Detemir (Levemir) 40 unit DAILY SC Last administered on 08/18/17 08:53 ; Admin Dose 40 UNIT; Start 08/15/17 at 09:00 Collagenase (Santyl) 1 applic DAILY TOP Last administered on 08/18/17 08:54; Admin Dose 1 APPLIC; Start 08/15/17 at 15:00 Insulin Aspart NOVOLOG *MILD* ALGORI... Q4 SC Last administered on 08/18/17 08 :54; Admin Dose 2 UNIT; Start 08/16/17 at 05:00 Fentanyl 100 ml @ 2.5 mls/hr TITRATE IV Last administered on 08/17/17 22:43; Admin Dose 5 MLS/HR; Start 08/16/17 at 16:00 Piperacillin Sod/ Tazobactam Sod (Zosyn 3.375gm/ 50 ml (Pmx)) 50 ml @ 100 mls/ hr Q6 IVPB Last administered on 08/18/17 05:19; Admin Dose 100 MLS/HR; Start 08/17/17 at 18:00; Stop 08/20/17 at 23:59 Polyethylene Glycol (Miralax) 17 gm DAILY GTB ; Start 08/18/17 at 12:30 PARMJIT AYALA Aug 18, 2017 12:18
[2017-08-18] MEDS: POLYETHYLENE GLYCOL 17 GM PACKET GTB SCH (12:22)
[2017-08-18] MEDS: morphine 2 MG INJ IV PRN (12:23)
--- NOTE | 2017-08-18 15:14 | PN ---
Date/Time of Note Date/Time of Note DATE: 08/18/17 TIME: 15:12 Assessment/Plan VTE Prophylaxis VTE Prophylaxis Intervention: SCD's Lines/Catheters IV Catheter Type (from Nrsg): Central Line Central line still needed: Yes (critically ill) Urinary Cath still in place: No Assessment/Plan Assessment/Plan 71 yo F with pmhx chronic encephalopathy and dysphagia 2/2 old CVA with chronic g tube admitted for sepsis (tachycardia/fever) possibly 2/2 healthcare associated aspiration pneumonia PLAN continue broad spectrum abx -cont zosyn. sputum culture reviewed. fransisca likely indicative of colonization given no nodules on imaging and pt is not immunocompromised h/o CVA: cont home BP and pain meds DM cont home insulin, +SSI. slight increase in basal insulin dysphagia: cont TFs palliative hospice consultant working on goals of care-->pt has already been intubated for 5 days and does not show significant improvement in respiratory status.Palliative hospice consultant to discuss with family if they would want pt's trached. Plan for family meeting appears to be Monday critical care time: 30 minutes Subjective 24 Hr Interval Summary Free Text/Dictation continues to fail PSTs Exam/Review of Systems Vital Signs Vitals Vital Signs Date Time Temp Pulse Resp B/P Pulse Ox O2 Delivery O2 Flow Rate FiO2 08/18/17 13:00 73 16 120/60 98 Mechanical Ventilator 08/18/17 12:00 98.9 08/18/17 08:00 30 08/14/17 07:21 10.0 Intake and Output 08/17/17 08/17/17 08/18/17 15:00 23:00 07:00 Intake Total 555.0 ml 455.0 ml 450.0 ml Output Total 590 ml 465 ml 270 ml Balance -35.0 ml -10.0 ml 180.0 ml Exam nad doesnt follow commands no mrg lungs clear abd soft no rashes Results Result Diagram: 08/18/17 0300 08/18/17 0300 Results 24 hrs Laboratory Tests Test 08/17/17 17:18 08/17/17 20:16 08/18/17 00:23 08/18/17 03:00 Bedside Glucose 95 120 121 White Blood Count 7.0 Red Blood Count 3.44 L Hemoglobin 7.8 L Hematocrit 26.2 L Mean Corpuscular Volume 76.2 L Mean Corpuscular Hemoglobin 22.7 L Mean Corpuscular Hemoglobin Concent 29.8 L Red Cell Distribution Width 19.9 H Platelet Count 310 Mean Platelet Volume 12.0 H Neutrophils % 53.2 Lymphocytes % 30.4 Monocytes % 6.3 Eosinophils % 9.4 H Basophils % 0.3 Nucleated Red Blood Cells % 0.0 Neutrophils # 3.7 Lymphocytes # 2.1 Monocytes # 0.4 Eosinophils # 0.7 H Basophils # 0.0 Nucleated Red Blood Cells # 0.0 Sodium Level 140 Potassium Level 3.5 Chloride Level 105 Carbon Dioxide Level 25 Anion Gap 14 Blood Urea Nitrogen 11 Creatinine 0.57 Glucose Level 142 Calcium Level 8.6 Phosphorus Level 3.4 Magnesium Level 2.5 Test 08/18/17 05:18 08/18/17 08:48 08/18/17 11:30 08/18/17 12:25 Bedside Glucose 179 203 124 Blood Gas Specimen Source Blood arterial Arterial Blood Date Drawn 08/18/2017 11:50:48 AM Arterial Blood pH (Temp corrected) 7.369 Arterial Blood pCO2 (Temp correct) 44.2 Arterial Blood pO2 (Temp corrected) 98.1 Arterial Blood HCO3 24.9 Arterial Blood Base Excess -0.5 Arterial Blood Oxygen Saturation 96.8 Girish Test ACCEPTAB Arterial Blood Gas Puncture Site Right Radial Arterial Blood Carboxyhemoglobin 0.3 Arterial Blood Methemoglobin 0.4 Blood Gas A-a O2 Differential 63.9 H Oxyhemoglobin Percent 96.1 Total Hemoglobin 11.4 L Blood Gas Temperature 37.0 Blood Gas Actual Respiration Rate 17 Blood Gas Modality VENT - CPAP FiO2 30.0 Blood Gas Low PEEP Setting 5.0 Blood Gas Pressure Support 10 Blood Gas Notified Whom JLD Blood Gas Notified Time 08/18/2017 12:08:40 PM Medications Medications Current Medications Ondansetron HCl (Zofran Inj) 4 mg Q6H PRN IV NAUSEA AND/OR VOMITING; Start at 23:00 Acetaminophen (Tylenol Supp) 650 mg Q4H PRN [place] PAIN LEVEL 1-3 OR FEVER Last administered on 08/14/17 05:38; Admin Dose 650 MG; Start 08/13/17 at 23:00 Morphine Sulfate (morphine) 2 mg Q4H PRN IV PAIN LEVEL 7-10 Last administered on 08/18/17 12:23; Admin Dose 2 MG; Start 08/13/17 at 23:00 Heparin Sodium (Porcine) (Heparin (5000 Units/0.5 ml)) 5,000 unit Q12 SC Last administered on 08/18/17 08:53; Admin Dose 5,000 UNIT; Start 08/14/17 at 09:00 Ascorbic Acid (Vitamin C) 500 mg DAILY GTB Last administered on 08/18/17 08:49 ; Admin Dose 500 MG; Start 08/14/17 at 09:00 Clopidogrel Bisulfate (plaVIX) 75 mg DAILY GTB Last administered on 08/18/17 08:49; Admin Dose 75 MG; Start 08/14/17 at 09:00 Levetiracetam (Keppra Liquid) 500 mg BID GTB Last administered on 08/18/17 08: 48; Admin Dose 500 MG; Start 08/13/17 at 23:00 Zinc Sulfate (Zinc Sulfate) 220 mg DAILY GTB Last administered on 08/18/17 08: 49; Admin Dose 220 MG; Start 08/14/17 at 09:00 Miscellaneous Information 1 ea NOTE XX ; Start 08/14/17 at 00:30 Glucose (Glutose) 15 gm Q15M PRN PO DECREASED GLUCOSE; Start 08/14/17 at 00:30 Glucose (Glutose) 22.5 gm Q15M PRN PO DECREASED GLUCOSE; Start 08/14/17 at 00: 30 Dextrose (D50w Syringe) 25 ml Q15M PRN IV DECREASED GLUCOSE; Start 08/14/17 at 00:30 Dextrose (D50w Syringe) 50 ml Q15M PRN IV DECREASED GLUCOSE; Start 08/14/17 at 00:30 Glucagon (Glucagen) 1 mg Q15M PRN IM DECREASED GLUCOSE; Start 08/14/17 at 00: 30 Glucose (Glutose) 15 gm Q15M PRN BUCCAL DECREASED GLUCOSE; Start 08/14/17 at 00:30 Bisacodyl (Dulcolax) 10 mg DAILY PRN PO CONSTIPATION Last administered on 13:58; Admin Dose 10 MG; Start 08/14/17 at 14:00 Losartan Potassium (Cozaar) 100 mg QHS GTB Last administered on 08/17/17 20:15 ; Admin Dose 100 MG; Start 08/14/17 at 21:00 Magnesium Hydroxide (Milk Of Mag) 30 ml DAILY PRN GTB CONSTIPATION Last administered on 08/18/17 08:48; Admin Dose 30 ML; Start 08/14/17 at 14:00 Miscellaneous Information (Pending Santyl Order For Wound Care) This patient valenzuela... PRN PRN XX WOUND CARE; Start 08/14/17 at 14:30 Lansoprazole (Prevacid) 30 mg DAILY@06 GTB Last administered on 08/18/17 05:19 ; Admin Dose 30 MG; Start 08/15/17 at 06:00 Collagenase (Santyl) 1 applic DAILY TOP Last administered on 08/18/17 08:54; Admin Dose 1 APPLIC; Start 08/15/17 at 15:00 Insulin Aspart NOVOLOG *MILD* ALGORI... Q4 SC Last administered on 08/18/17 08 :54; Admin Dose 2 UNIT; Start 08/16/17 at 05:00 Fentanyl 100 ml @ 2.5 mls/hr TITRATE IV Last administered on 08/17/17 22:43; Admin Dose 5 MLS/HR; Start 08/16/17 at 16:00 Piperacillin Sod/ Tazobactam Sod (Zosyn 3.375gm/ 50 ml (Pmx)) 50 ml @ 100 mls/ hr Q6 IVPB Last administered on 08/18/17 12:22; Admin Dose 100 MLS/HR; Start 08/17/17 at 18:00; Stop 08/20/17 at 23:59 Polyethylene Glycol (Miralax) 17 gm DAILY GTB Last administered on 08/18/17 12 :22; Admin Dose 17 GM; Start 08/18/17 at 12:30 Insulin Detemir (Levemir) 45 unit DAILY SC ; Start 08/19/17 at 09:00 LUDA MORENO MD Aug 18, 2017 15:13
[2017-08-18] MEDS: LOSARTAN 50 MG TAB GTB SCH (20:48)
[2017-08-19] VITALS (36 sets, daily range): BP systolic 125–166; BP diastolic 60–93; PULSE 57–80; RESP 15–25
[2017-08-19] MEDS: PIPER-TAZO 3.375 GM IV (PMX) 50 ML IVPB SCH ×5 (01:42→23:51)
[2017-08-19] MEDS: INSULIN ASPART [NOVOLOG] 3 ML PEN SC SCH ×6 (01:50→21:00)
[2017-08-19] MEDS: morphine 2 MG INJ IV PRN (02:16)
[2017-08-19] MEDS: LANSOPRAZOLE 30 MG CAP GTB SCH (06:31)
[2017-08-19 07:09] LABS: BASOPHILS % 0.4 % (0.0-2.0); EOSINOPHILS # 0.6 10^3/ul (0.0-0.5); HEMATOCRIT 28.5 % (37.0-47.0); HEMOGLOBIN 8.3 g/dl (12.0-16.0); LYMPHOCYTES % 26.5 % (15.0-51.0); MEAN CORPUSCULAR HEMOGLOBIN 22.4 pg (29.0-33.0); MEAN CORPUSCULAR HGB CONC 29.1 g/dl (32.0-37.0); MEAN PLATELET VOLUME 11.4 fl (7.4-10.4); MONOCYTE # 0.4 10^3/ul (0.3-0.9); MONOCYTES % 5.8 % (0.0-11.0); NEUTROPHIL # 4.4 10^3/ul (1.6-7.5); NEUTROPHILS % 58.8 % (39.0-77.0); PLATELET COUNT 343 10^3/UL (140-415); RED CELL DISTRIBUTION WIDTH 20.8 % (11.5-14.5); WHITE BLOOD COUNT 7.5 10^3/ul (4.8-10.8)
[2017-08-19 07:32] LABS: CALCIUM 8.5 mg/dl (8.4-10.2); CREATININE 0.56 mg/dl (0.44-1.00); POTASSIUM 3.4 mmol/L (3.5-5.1)
--- NOTE | 2017-08-19 08:46 | RADRPT ---
PROCEDURE: XR Chest. CLINICAL INDICATION: Pneumonia, congestive heart failure TECHNIQUE: Single frontal view of the chest was obtained COMPARISON: 08/15/2017 FINDINGS: Stable endotracheal tube and left internal jugular approach central venous catheter. Decreased lung volumes and worsening bibasilar atelectasis. No pleural effusion or pneumothorax. Stable cardiomediastinal silhouette. No acute osseous abnormality. IMPRESSION: Decreased lung volumes worsening bibasilar atelectasis. Otherwise, no convincing interval change com pared to chest radiograph dated 08/15/2017. RPTAT: EE Physician Sofía Date Time Electronically viewed and signed by Physician Sofía on 08/19/2017 08:45 /
[2017-08-19] MEDS ORDERED: INSULIN DETEMIR [LEVEMIR] 3ML CART SC SCH (09:00)
[2017-08-19] MEDS: INSULIN DETEMIR [LEVEMIR] 3ML CART SC SCH (09:14)
[2017-08-19] MEDS: CLOPIDOGREL 75 MG TAB GTB SCH (09:40)
[2017-08-19] MEDS: ASCORBIC ACID 500 MG TAB GTB SCH (09:40)
[2017-08-19] MEDS: ZINC SULFATE 220 MG CAP GTB SCH (09:40)
[2017-08-19] MEDS: LEVETIRACETAM (100 MG/ML) 5ML CUP GTB SCH ×2 (09:40→21:12)
[2017-08-19] MEDS: POLYETHYLENE GLYCOL 17 GM PACKET GTB SCH (09:40)
[2017-08-19] MEDS: COLLAGENASE 30 GM TUBE TOP SCH (11:34)
--- NOTE | 2017-08-19 11:51 | CONS ---
Date/Time of Note Date/Time of Note DATE: 08/19/17 TIME: 11:49 Consult Date/Type/Reason Admit Date/Time Aug 13, 2017 at 22:40 Initial Consult Date 08/14/17 Type of Consultation: Pulm/CCM Subjective No events. On mech vent. Objective Vital Signs Date Time Temp Pulse Resp B/P Pulse Ox O2 Delivery O2 Flow Rate FiO2 08/19/17 11:00 61 17 141/66 98 08/19/17 08:00 97.8 Mechanical Ventilator 08/19/17 08:00 30 Intake and Output 08/18/17 08/18/17 08/19/17 15:00 23:00 07:00 Intake Total 210 ml 270 ml Output Total 395 ml 145 ml Balance -185 ml 125 ml Exam HEENT: Pupils equal, round, and reactive to light. CARDIAC: S1, S2, 1/6 systolic ejection murmur CHEST: Diminished air entry bilaterally. ABDOMEN: Mildly distended. Bowel sounds present no guarding or rebound EXTREMITIES: No cyanosis, clubbing edema +1 Results/Medications Result Diagram: 08/19/17 0510 08/19/17 0510 Results 24 hrs Laboratory Tests Test 08/18/17 12:25 08/18/17 18:24 08/18/17 20:46 08/19/17 01:41 Bedside Glucose 124 116 114 151 Test 08/19/17 05:10 08/19/17 06:37 08/19/17 09:04 08/19/17 11:31 White Blood Count 7.5 Red Blood Count 3.70 L Hemoglobin 8.3 L Hematocrit 28.5 L Mean Corpuscular Volume 77.0 L Mean Corpuscular Hemoglobin 22.4 L Mean Corpuscular Hemoglobin Concent 29.1 L Red Cell Distribution Width 20.8 H Platelet Count 343 Mean Platelet Volume 11.4 H Neutrophils % 58.8 Lymphocytes % 26.5 Monocytes % 5.8 Eosinophils % 8.0 H Basophils % 0.4 Nucleated Red Blood Cells % 0.0 Neutrophils # 4.4 Lymphocytes # 2.0 Monocytes # 0.4 Eosinophils # 0.6 H Basophils # 0.0 Nucleated Red Blood Cells # 0.0 Sodium Level 145 H Potassium Level 3.4 L Chloride Level 109 Carbon Dioxide Level 25 Anion Gap 14 Blood Urea Nitrogen 12 Creatinine 0.56 Glucose Level 166 Calcium Level 8.5 Bedside Glucose 159 191 166 Medications Current Medications Ondansetron HCl (Zofran Inj) 4 mg Q6H PRN IV NAUSEA AND/OR VOMITING; Start at 23:00 Acetaminophen (Tylenol Supp) 650 mg Q4H PRN [place] PAIN LEVEL 1-3 OR FEVER Last administered on 08/14/17 05:38; Admin Dose 650 MG; Start 08/13/17 at 23:00 Morphine Sulfate (morphine) 2 mg Q4H PRN IV PAIN LEVEL 7-10 Last administered on 08/19/17 02:16; Admin Dose 2 MG; Start 08/13/17 at 23:00 Ascorbic Acid (Vitamin C) 500 mg DAILY GTB Last administered on 08/19/17 09:40 ; Admin Dose 500 MG; Start 08/14/17 at 09:00 Clopidogrel Bisulfate (plaVIX) 75 mg DAILY GTB Last administered on 08/19/17 09:40; Admin Dose 75 MG; Start 08/14/17 at 09:00 Levetiracetam (Keppra Liquid) 500 mg BID GTB Last administered on 08/19/17 09: 40; Admin Dose 500 MG; Start 08/13/17 at 23:00 Zinc Sulfate (Zinc Sulfate) 220 mg DAILY GTB Last administered on 08/19/17 09: 40; Admin Dose 220 MG; Start 08/14/17 at 09:00 Miscellaneous Information 1 ea NOTE XX ; Start 08/14/17 at 00:30 Glucose (Glutose) 15 gm Q15M PRN PO DECREASED GLUCOSE; Start 08/14/17 at 00:30 Glucose (Glutose) 22.5 gm Q15M PRN PO DECREASED GLUCOSE; Start 08/14/17 at 00: 30 Dextrose (D50w Syringe) 25 ml Q15M PRN IV DECREASED GLUCOSE; Start 08/14/17 at 00:30 Dextrose (D50w Syringe) 50 ml Q15M PRN IV DECREASED GLUCOSE; Start 08/14/17 at 00:30 Glucagon (Glucagen) 1 mg Q15M PRN IM DECREASED GLUCOSE; Start 08/14/17 at 00: 30 Glucose (Glutose) 15 gm Q15M PRN BUCCAL DECREASED GLUCOSE; Start 08/14/17 at 00:30 Bisacodyl (Dulcolax) 10 mg DAILY PRN PO CONSTIPATION Last administered on 13:58; Admin Dose 10 MG; Start 08/14/17 at 14:00 Losartan Potassium (Cozaar) 100 mg QHS GTB Last administered on 08/18/17 20:48 ; Admin Dose 100 MG; Start 08/14/17 at 21:00 Magnesium Hydroxide (Milk Of Mag) 30 ml DAILY PRN GTB CONSTIPATION Last administered on 08/18/17 08:48; Admin Dose 30 ML; Start 08/14/17 at 14:00 Miscellaneous Information (Pending Santyl Order For Wound Care) This patient valenzuela... PRN PRN XX WOUND CARE; Start 08/14/17 at 14:30 Lansoprazole (Prevacid) 30 mg DAILY@06 GTB Last administered on 08/19/17 06:31 ; Admin Dose 30 MG; Start 08/15/17 at 06:00 Collagenase (Santyl) 1 applic DAILY TOP Last administered on 08/19/17 11:34; Admin Dose 1 APPLIC; Start 08/15/17 at 15:00 Insulin Aspart NOVOLOG *MILD* ALGORI... Q4 SC Last administered on 08/19/17 09 :14; Admin Dose 2 UNIT; Start 08/16/17 at 05:00 Fentanyl 100 ml @ 2.5 mls/hr TITRATE IV Last administered on 08/17/17 22:43; Admin Dose 5 MLS/HR; Start 08/16/17 at 16:00 Piperacillin Sod/ Tazobactam Sod (Zosyn 3.375gm/ 50 ml (Pmx)) 50 ml @ 100 mls/ hr Q6 IVPB Last administered on 08/19/17 06:31; Admin Dose 100 MLS/HR; Start 08/17/17 at 18:00; Stop 08/20/17 at 23:59 Polyethylene Glycol (Miralax) 17 gm DAILY GTB Last administered on 08/19/17 09 :40; Admin Dose 17 GM; Start 08/18/17 at 12:30 Insulin Detemir (Levemir) 42 unit DAILY SC Last administered on 08/19/17 09:14 ; Admin Dose 42 UNIT; Start 08/19/17 at 09:00 Assessment/Plan Additional Assessment/Plan IMP: 1. Hypoxemic respiratory failure, likely secondary to alveolar hypoventilation and HCAP 2. History of CVA with advanced dementia. 3. Dysphagia 4. Anemia Plan 1. Vent support for now 2. Continue palliative care discussions with family 3. Broad-spectrum Abx 4. Monitor H&H 5. TF/Free H20 35 min cc time PHOEBE AHLEY MD Aug 19, 2017 11:51
--- NOTE | 2017-08-19 12:53 | PN ---
Date/Time of Note Date/Time of Note DATE: 08/19/17 TIME: 12:51 Assessment/Plan VTE Prophylaxis VTE Prophylaxis Intervention: SCD's Lines/Catheters IV Catheter Type (from Nrsg): Central Line Central line still needed: No (critically ill) Urinary Cath still in place: Yes Reason Cath still needed: other (indicate) (critically ill) Assessment/Plan Assessment/Plan 71 yo F with pmhx chronic encephalopathy and dysphagia 2/2 old CVA with chronic g tube admitted for sepsis (tachycardia/fever) possibly 2/2 healthcare associated aspiration pneumonia PLAN continue broad spectrum abx -cont zosyn. sputum culture reviewed. fransisca likely indicative of colonization given no nodules on imaging and pt is not immunocompromised -anticipate 7 days of therapy h/o CVA: cont home BP and pain meds DM cont home insulin, +SSI. increased basal insulin. accuchecks per protocol dysphagia: cont TFs palliative learning consultant working on goals of care-->pt has already been intubated for 5 days and does not show significant improvement in respiratory status.Palliative learning consultant to discuss with family if they would want pt's trached. Plan for family meeting appears to be Monday critical care time: 30 minutes Subjective 24 Hr Interval Summary Free Text/Dictation still not pulling good TVs on her own Exam/Review of Systems Vital Signs Vitals Vital Signs Date Time Temp Pulse Resp B/P Pulse Ox O2 Delivery O2 Flow Rate FiO2 08/19/17 12:00 30 08/19/17 11:00 61 17 141/66 98 08/19/17 08:00 97.8 Mechanical Ventilator Intake and Output 08/18/17 08/18/17 08/19/17 15:00 23:00 07:00 Intake Total 210 ml 270 ml Output Total 395 ml 145 ml Balance -185 ml 125 ml Exam intubated and sedated no rashes resp nonlabored no edema does not follow commands Results Result Diagram: 08/19/17 0510 08/19/17 0510 Results 24 hrs Laboratory Tests Test 08/18/17 18:24 08/18/17 20:46 08/19/17 01:41 08/19/17 05:10 Bedside Glucose 116 114 151 White Blood Count 7.5 Red Blood Count 3.70 L Hemoglobin 8.3 L Hematocrit 28.5 L Mean Corpuscular Volume 77.0 L Mean Corpuscular Hemoglobin 22.4 L Mean Corpuscular Hemoglobin Concent 29.1 L Red Cell Distribution Width 20.8 H Platelet Count 343 Mean Platelet Volume 11.4 H Neutrophils % 58.8 Lymphocytes % 26.5 Monocytes % 5.8 Eosinophils % 8.0 H Basophils % 0.4 Nucleated Red Blood Cells % 0.0 Neutrophils # 4.4 Lymphocytes # 2.0 Monocytes # 0.4 Eosinophils # 0.6 H Basophils # 0.0 Nucleated Red Blood Cells # 0.0 Sodium Level 145 H Potassium Level 3.4 L Chloride Level 109 Carbon Dioxide Level 25 Anion Gap 14 Blood Urea Nitrogen 12 Creatinine 0.56 Glucose Level 166 Calcium Level 8.5 Test 08/19/17 06:37 08/19/17 09:04 08/19/17 11:31 Bedside Glucose 159 191 166 Medications Medications Current Medications Ondansetron HCl (Zofran Inj) 4 mg Q6H PRN IV NAUSEA AND/OR VOMITING; Start at 23:00 Acetaminophen (Tylenol Supp) 650 mg Q4H PRN [place] PAIN LEVEL 1-3 OR FEVER Last administered on 08/14/17 05:38; Admin Dose 650 MG; Start 08/13/17 at 23:00 Morphine Sulfate (morphine) 2 mg Q4H PRN IV PAIN LEVEL 7-10 Last administered on 08/19/17 02:16; Admin Dose 2 MG; Start 08/13/17 at 23:00 Ascorbic Acid (Vitamin C) 500 mg DAILY GTB Last administered on 08/19/17 09:40 ; Admin Dose 500 MG; Start 08/14/17 at 09:00 Clopidogrel Bisulfate (plaVIX) 75 mg DAILY GTB Last administered on 08/19/17 09:40; Admin Dose 75 MG; Start 08/14/17 at 09:00 Levetiracetam (Keppra Liquid) 500 mg BID GTB Last administered on 08/19/17 09: 40; Admin Dose 500 MG; Start 08/13/17 at 23:00 Zinc Sulfate (Zinc Sulfate) 220 mg DAILY GTB Last administered on 08/19/17 09: 40; Admin Dose 220 MG; Start 08/14/17 at 09:00 Miscellaneous Information 1 ea NOTE XX ; Start 08/14/17 at 00:30 Glucose (Glutose) 15 gm Q15M PRN PO DECREASED GLUCOSE; Start 08/14/17 at 00:30 Glucose (Glutose) 22.5 gm Q15M PRN PO DECREASED GLUCOSE; Start 08/14/17 at 00: 30 Dextrose (D50w Syringe) 25 ml Q15M PRN IV DECREASED GLUCOSE; Start 08/14/17 at 00:30 Dextrose (D50w Syringe) 50 ml Q15M PRN IV DECREASED GLUCOSE; Start 08/14/17 at 00:30 Glucagon (Glucagen) 1 mg Q15M PRN IM DECREASED GLUCOSE; Start 08/14/17 at 00: 30 Glucose (Glutose) 15 gm Q15M PRN BUCCAL DECREASED GLUCOSE; Start 08/14/17 at 00:30 Bisacodyl (Dulcolax) 10 mg DAILY PRN PO CONSTIPATION Last administered on 13:58; Admin Dose 10 MG; Start 08/14/17 at 14:00 Losartan Potassium (Cozaar) 100 mg QHS GTB Last administered on 08/18/17 20:48 ; Admin Dose 100 MG; Start 08/14/17 at 21:00 Magnesium Hydroxide (Milk Of Mag) 30 ml DAILY PRN GTB CONSTIPATION Last administered on 08/18/17 08:48; Admin Dose 30 ML; Start 08/14/17 at 14:00 Miscellaneous Information (Pending Santyl Order For Wound Care) This patient valenzuela... PRN PRN XX WOUND CARE; Start 08/14/17 at 14:30 Lansoprazole (Prevacid) 30 mg DAILY@06 GTB Last administered on 08/19/17 06:31 ; Admin Dose 30 MG; Start 08/15/17 at 06:00 Collagenase (Santyl) 1 applic DAILY TOP Last administered on 08/19/17 11:34; Admin Dose 1 APPLIC; Start 08/15/17 at 15:00 Insulin Aspart NOVOLOG *MILD* ALGORI... Q4 SC Last administered on 08/19/17 09 :14; Admin Dose 2 UNIT; Start 08/16/17 at 05:00 Fentanyl 100 ml @ 2.5 mls/hr TITRATE IV Last administered on 08/17/17 22:43; Admin Dose 5 MLS/HR; Start 08/16/17 at 16:00 Piperacillin Sod/ Tazobactam Sod (Zosyn 3.375gm/ 50 ml (Pmx)) 50 ml @ 100 mls/ hr Q6 IVPB Last administered on 08/19/17 06:31; Admin Dose 100 MLS/HR; Start 08/17/17 at 18:00; Stop 08/20/17 at 23:59 Polyethylene Glycol (Miralax) 17 gm DAILY GTB Last administered on 08/19/17 09 :40; Admin Dose 17 GM; Start 08/18/17 at 12:30 Insulin Detemir (Levemir) 42 unit DAILY SC Last administered on 08/19/17 09:14 ; Admin Dose 42 UNIT; Start 08/19/17 at 09:00 LUDA MORENO MD Aug 19, 2017 12:53
[2017-08-19] MEDS: LOSARTAN 50 MG TAB GTB SCH (21:12)
[2017-08-20] VITALS (35 sets, daily range): BP systolic 141–195; BP diastolic 56–98; PULSE 62–84; RESP 14–21
[2017-08-20] MEDS: INSULIN ASPART [NOVOLOG] 3 ML PEN SC SCH ×6 (01:00→20:52)
[2017-08-20] MEDS: PIPER-TAZO 3.375 GM IV (PMX) 50 ML IVPB SCH ×3 (05:46→17:00)
[2017-08-20] MEDS: LANSOPRAZOLE 30 MG CAP GTB SCH (05:46)
[2017-08-20] MEDS: CLOPIDOGREL 75 MG TAB GTB SCH ×2 (09:00→09:33)
[2017-08-20] MEDS: ASCORBIC ACID 500 MG TAB GTB SCH ×2 (09:00→09:33)
[2017-08-20] MEDS: POLYETHYLENE GLYCOL 17 GM PACKET GTB SCH ×2 (09:00→09:33)
[2017-08-20] MEDS: ZINC SULFATE 220 MG CAP GTB SCH ×2 (09:00→09:33)
[2017-08-20] MEDS: LEVETIRACETAM (100 MG/ML) 5ML CUP GTB SCH ×2 (09:33→21:00)
[2017-08-20] MEDS: INSULIN DETEMIR [LEVEMIR] 3ML CART SC SCH (09:41)
[2017-08-20] MEDS: COLLAGENASE 30 GM TUBE TOP SCH (10:29)
--- NOTE | 2017-08-20 11:02 | CONS ---
Date/Time of Note Date/Time of Note DATE: 08/20/17 TIME: 10:59 Consult Date/Type/Reason Admit Date/Time Aug 13, 2017 at 22:40 Initial Consult Date 08/14/17 Type of Consultation: Pulm/CCM Subjective G-Tube clogged. Remains on vent. Objective Vital Signs Date Time Temp Pulse Resp B/P Pulse Ox O2 Delivery O2 Flow Rate FiO2 08/20/17 10:00 67 16 154/62 100 Mechanical Ventilator 08/20/17 09:10 30 08/20/17 08:00 99.8 Intake and Output 08/19/17 08/19/17 08/20/17 15:00 23:00 07:00 Intake Total 280 ml 570 ml 520 ml Output Total 607 ml 215 ml 305 ml Balance -327 ml 355 ml 215 ml Exam HEENT: Neck supple; no JVD; no LAD; + et tube CVS: RRR, S1 and S2 CHEST: Clear with occ rhonchi ABD: Soft, NT, + BS, + G-tube EXT: No c/c/e Results/Medications Result Diagram: 08/19/1710 08/19/17 0510 Results 24 hrs Laboratory Tests Test 08/19/17 11:31 08/19/17 12:54 08/19/17 17:25 08/19/17 21:15 Bedside Glucose 166 174 131 132 Test 08/20/17 01:03 08/20/17 04:45 08/20/17 09:26 Bedside Glucose 134 143 179 Medications Current Medications Ondansetron HCl (Zofran Inj) 4 mg Q6H PRN IV NAUSEA AND/OR VOMITING; Start at 23:00 Acetaminophen (Tylenol Supp) 650 mg Q4H PRN [place] PAIN LEVEL 1-3 OR FEVER Last administered on 08/14/17 05:38; Admin Dose 650 MG; Start 08/13/17 at 23:00 Morphine Sulfate (morphine) 2 mg Q4H PRN IV PAIN LEVEL 7-10 Last administered on 08/19/17 02:16; Admin Dose 2 MG; Start 08/13/17 at 23:00 Ascorbic Acid (Vitamin C) 500 mg DAILY GTB Last administered on 08/20/17 09:33 ; Admin Dose 500 MG; Start 08/14/17 at 09:00 Clopidogrel Bisulfate (plaVIX) 75 mg DAILY GTB Last administered on 08/20/17 09:33; Admin Dose 75 MG; Start 08/14/17 at 09:00 Levetiracetam (Keppra Liquid) 500 mg BID GTB Last administered on 08/20/17 09: 33; Admin Dose 500 MG; Start 08/13/17 at 23:00 Zinc Sulfate (Zinc Sulfate) 220 mg DAILY GTB Last administered on 08/20/17 09: 33; Admin Dose 220 MG; Start 08/14/17 at 09:00 Miscellaneous Information 1 ea NOTE XX ; Start 08/14/17 at 00:30 Glucose (Glutose) 15 gm Q15M PRN PO DECREASED GLUCOSE; Start 08/14/17 at 00:30 Glucose (Glutose) 22.5 gm Q15M PRN PO DECREASED GLUCOSE; Start 08/14/17 at 00: 30 Dextrose (D50w Syringe) 25 ml Q15M PRN IV DECREASED GLUCOSE; Start 08/14/17 at 00:30 Dextrose (D50w Syringe) 50 ml Q15M PRN IV DECREASED GLUCOSE; Start 08/14/17 at 00:30 Glucagon (Glucagen) 1 mg Q15M PRN IM DECREASED GLUCOSE; Start 08/14/17 at 00: 30 Glucose (Glutose) 15 gm Q15M PRN BUCCAL DECREASED GLUCOSE; Start 08/14/17 at 00:30 Bisacodyl (Dulcolax) 10 mg DAILY PRN PO CONSTIPATION Last administered on 13:58; Admin Dose 10 MG; Start 08/14/17 at 14:00 Losartan Potassium (Cozaar) 100 mg QHS GTB Last administered on 08/19/17 21:12 ; Admin Dose 100 MG; Start 08/14/17 at 21:00 Magnesium Hydroxide (Milk Of Mag) 30 ml DAILY PRN GTB CONSTIPATION Last administered on 08/18/17 08:48; Admin Dose 30 ML; Start 08/14/17 at 14:00 Miscellaneous Information (Pending [facility] Order For Wound Care) This patient valenzuela... PRN PRN XX WOUND CARE; Start 08/14/17 at 14:30 Lansoprazole (Prevacid) 30 mg DAILY@06 GTB Last administered on 08/20/17 05:46 ; Admin Dose 30 MG; Start 08/15/17 at 06:00 Collagenase (Santyl) 1 applic DAILY TOP Last administered on 08/20/17 10:29; Admin Dose 1 APPLIC; Start 08/15/17 at 15:00 Insulin Aspart NOVOLOG *MILD* ALGORI... Q4 SC Last administered on 08/20/17 09 :42; Admin Dose 1 UNIT; Start 08/16/17 at 05:00 Fentanyl 100 ml @ 2.5 mls/hr TITRATE IV Last administered on 08/17/17 22:43; Admin Dose 5 MLS/HR; Start 08/16/17 at 16:00 Piperacillin Sod/ Tazobactam Sod (Zosyn 3.375gm/ 50 ml (Pmx)) 50 ml @ 100 mls/ hr Q6 IVPB Last administered on 08/20/17 05:46; Admin Dose 100 MLS/HR; Start 08/17/17 at 18:00; Stop 08/20/17 at 23:59 Polyethylene Glycol (Miralax) 17 gm DAILY GTB Last administered on 08/20/17 09 :33; Admin Dose 17 GM; Start 08/18/17 at 12:30 Insulin Detemir (Levemir) 42 unit DAILY SC Last administered on 08/20/17 09:41 ; Admin Dose 42 UNIT; Start 08/19/17 at 09:00 Assessment/Plan Additional Assessment/Plan IMP: 1. Hypoxemic respiratory failure, likely secondary to alveolar hypoventilation and HCAP 2. History of CVA with advanced dementia. 3. G-Tube Malfxn 4. Anemia RECS: 1. Vent support for now--> try CPAP/PS in am 2. Continue palliative care discussions with family to have plans to not re- intubate should she pass weaning trial 3. Broad-spectrum Abx 4. Monitor H&H 5. Consider GI consult for G-tube problem 35 min cc time PHOEBE HALEY MD Aug 20, 2017 11:01
--- NOTE | 2017-08-20 16:05 | PN ---
Date/Time of Note Date/Time of Note DATE: 08/20/17 TIME: 15:58 Assessment/Plan VTE Prophylaxis VTE Prophylaxis Intervention: SCD's Lines/Catheters IV Catheter Type (from Nrsg): Central Line Central line still needed: No Urinary Cath still in place: Yes Reason Cath still needed: other (indicate) (critically ill) Assessment/Plan Assessment/Plan Assessment/Plan 71 yo F with pmhx chronic encephalopathy and dysphagia 2/2 old CVA with chronic g tube admitted for sepsis (tachycardia/fever) possibly 2/2 healthcare associated aspiration pneumonia with ESBL Klebsiella. Now with g tube malfunctioning. PLAN sp 7 days of pathogen directed Zosyn h/o CVA: cont home BP and pain meds DM -given PEG tube clogged last this AM after basal insulin given, will start dextrose while tube feeds cannot be administered to prevent iatrogenic hypoglycemia -re basal insulin while TFs not running: cut lantus dose in half dysphagia: PEG tube not working. GI cs placed palliative business objects consultant working on goals of care-->pt has already been intubated for 6 days and does not show significant improvement in respiratory status.Palliative business objects consultant to discuss with family if they would want pt's trached. Plan for family meeting appears to be Monday critical care time: 30 minutes Subjective 24 Hr Interval Summary Free Text/Dictation per RN, g tube clogged this AM Exam/Review of Systems Vital Signs Vitals Vital Signs Date Time Temp Pulse Resp B/P Pulse Ox O2 Delivery O2 Flow Rate FiO2 08/20/17 13:10 74 16 98 30 08/20/17 13:00 169/98 Mechanical Ventilator 08/20/17 12:00 100.0 Intake and Output 08/19/17 08/19/17 08/20/17 15:00 23:00 07:00 Intake Total 280 ml 570 ml 520 ml Output Total 607 ml 215 ml 305 ml Balance -327 ml 355 ml 215 ml Results Result Diagram: 08/19/17 0510 08/19/17 0510 Results 24 hrs Laboratory Tests Test 08/19/17 17:25 08/19/17 21:15 08/20/17 01:03 08/20/17 04:45 Bedside Glucose 131 132 134 143 Test 08/20/17 09:26 08/20/17 15:39 Bedside Glucose 179 116 Medications Medications Current Medications Ondansetron HCl (Zofran Inj) 4 mg Q6H PRN IV NAUSEA AND/OR VOMITING; Start at 23:00 Acetaminophen (Tylenol Supp) 650 mg Q4H PRN [place] PAIN LEVEL 1-3 OR FEVER Last administered on 08/14/17 05:38; Admin Dose 650 MG; Start 08/13/17 at 23:00 Morphine Sulfate (morphine) 2 mg Q4H PRN IV PAIN LEVEL 7-10 Last administered on 08/19/17 02:16; Admin Dose 2 MG; Start 08/13/17 at 23:00 Ascorbic Acid (Vitamin C) 500 mg DAILY GTB Last administered on 08/19/17 09:40 ; Admin Dose 500 MG; Start 08/14/17 at 09:00 Clopidogrel Bisulfate (plaVIX) 75 mg DAILY GTB Last administered on 08/19/17 09:40; Admin Dose 75 MG; Start 08/14/17 at 09:00 Levetiracetam (Keppra Liquid) 500 mg BID GTB Last administered on 08/20/17 09: 33; Admin Dose 500 MG; Start 08/13/17 at 23:00 Zinc Sulfate (Zinc Sulfate) 220 mg DAILY GTB Last administered on 08/19/17 09: 40; Admin Dose 220 MG; Start 08/14/17 at 09:00 Miscellaneous Information 1 ea NOTE XX ; Start 08/14/17 at 00:30 Glucose (Glutose) 15 gm Q15M PRN PO DECREASED GLUCOSE; Start 08/14/17 at 00:30 Glucose (Glutose) 22.5 gm Q15M PRN PO DECREASED GLUCOSE; Start 08/14/17 at 00: 30 Dextrose (D50w Syringe) 25 ml Q15M PRN IV DECREASED GLUCOSE; Start 08/14/17 at 00:30 Dextrose (D50w Syringe) 50 ml Q15M PRN IV DECREASED GLUCOSE; Start 08/14/17 at 00:30 Glucagon (Glucagen) 1 mg Q15M PRN IM DECREASED GLUCOSE; Start 08/14/17 at 00: 30 Glucose (Glutose) 15 gm Q15M PRN BUCCAL DECREASED GLUCOSE; Start 08/14/17 at 00:30 Bisacodyl (Dulcolax) 10 mg DAILY PRN PO CONSTIPATION Last administered on 13:58; Admin Dose 10 MG; Start 08/14/17 at 14:00 Losartan Potassium (Cozaar) 100 mg QHS GTB Last administered on 08/19/17 21:12 ; Admin Dose 100 MG; Start 08/14/17 at 21:00 Magnesium Hydroxide (Milk Of Mag) 30 ml DAILY PRN GTB CONSTIPATION Last administered on 08/18/17 08:48; Admin Dose 30 ML; Start 08/14/17 at 14:00 Miscellaneous Information (Pending Santyl Order For Wound Care) This patient valenzuela... PRN PRN XX WOUND CARE; Start 08/14/17 at 14:30 Lansoprazole (Prevacid) 30 mg DAILY@06 GTB Last administered on 08/20/17 05:46 ; Admin Dose 30 MG; Start 08/15/17 at 06:00 Collagenase (Santyl) 1 applic DAILY TOP Last administered on 08/20/17 10:29; Admin Dose 1 APPLIC; Start 08/15/17 at 15:00 Insulin Aspart NOVOLOG *MILD* ALGORI... Q4 SC Last administered on 08/20/17 09 :42; Admin Dose 1 UNIT; Start 08/16/17 at 05:00 Fentanyl 100 ml @ 2.5 mls/hr TITRATE IV Last administered on 08/17/17 22:43; Admin Dose 5 MLS/HR; Start 08/16/17 at 16:00 Piperacillin Sod/ Tazobactam Sod (Zosyn 3.375gm/ 50 ml (Pmx)) 50 ml @ 100 mls/ hr Q6 IVPB Last administered on 08/20/17 12:49; Admin Dose 100 MLS/HR; Start 08/17/17 at 18:00; Stop 08/20/17 at 23:59 Polyethylene Glycol (Miralax) 17 gm DAILY GTB Last administered on 08/19/17 09 :40; Admin Dose 17 GM; Start 08/18/17 at 12:30 Insulin Detemir (Levemir) 42 unit DAILY SC Last administered on 08/20/17 09:41 ; Admin Dose 42 UNIT; Start 08/19/17 at 09:00 LUDA MORENO MD Aug 20, 2017 16:05
[2017-08-20] MEDS: DEXTROSE 5% 1,000 ML IV SCH (16:56)
[2017-08-20] MEDS: LOSARTAN 50 MG TAB GTB SCH (21:00)
[2017-08-20] MEDS: LEVETIRACETAM 500 MG (PMX) 100 ML IVPB SCH (22:19)
[2017-08-21] VITALS (32 sets, daily range): BP systolic 123–160; BP diastolic 47–75; PULSE 58–78; RESP 14–34
[2017-08-21] MEDS: INSULIN ASPART [NOVOLOG] 3 ML PEN SC SCH ×6 (00:34→21:00)
[2017-08-21] MEDS: LANSOPRAZOLE 30 MG CAP GTB SCH (05:03)
[2017-08-21 06:31] LABS: BASOPHILS % 0.5 % (0.0-2.0); EOSINOPHILS # 0.6 10^3/ul (0.0-0.5); EOSINOPHILS % 7.3 % (0.0-7.0); HEMATOCRIT 30.6 % (37.0-47.0); HEMOGLOBIN 9.2 g/dl (12.0-16.0); LYMPHOCYTES # 2.4 10^3/ul (0.8-2.9); LYMPHOCYTES % 30.7 % (15.0-51.0); MEAN CORPUSCULAR HEMOGLOBIN 23.4 pg (29.0-33.0); MEAN CORPUSCULAR HGB CONC 30.1 g/dl (32.0-37.0); MEAN CORPUSCULAR VOLUME 77.9 fl (82.0-101.0); MEAN PLATELET VOLUME 11.4 fl (7.4-10.4); MONOCYTE # 0.6 10^3/ul (0.3-0.9); MONOCYTES % 7.2 % (0.0-11.0); NEUTROPHIL # 4.1 10^3/ul (1.6-7.5); NEUTROPHILS % 53.4 % (39.0-77.0); PLATELET COUNT 351 10^3/UL (140-415); RED BLOOD COUNT 3.93 10^6/ul (4.20-5.40); RED CELL DISTRIBUTION WIDTH 21.3 % (11.5-14.5); WHITE BLOOD COUNT 7.7 10^3/ul (4.8-10.8)
[2017-08-21 07:09] LABS: CALCIUM 9.1 mg/dl (8.4-10.2); CREATININE 0.51 mg/dl (0.44-1.00); POTASSIUM 3.7 mmol/L (3.5-5.1)
[2017-08-21] MEDS: CLOPIDOGREL 75 MG TAB GTB SCH (08:05)
[2017-08-21] MEDS: POLYETHYLENE GLYCOL 17 GM PACKET GTB SCH (08:05)
[2017-08-21] MEDS: ASCORBIC ACID 500 MG TAB GTB SCH (08:06)
[2017-08-21] MEDS: ZINC SULFATE 220 MG CAP GTB SCH (08:06)
[2017-08-21] MEDS: COLLAGENASE 30 GM TUBE TOP SCH (09:00)
[2017-08-21] MEDS: LEVETIRACETAM 500 MG (PMX) 100 ML IVPB SCH ×2 (09:38→21:00)
--- NOTE | 2017-08-21 09:39 | CONS ---
Date/Time of Note Date/Time of Note DATE: 08/21/17 TIME: 09:38 Consult Date/Type/Reason Admit Date/Time Aug 13, 2017 at 22:40 Initial Consult Date 08/14/17 Type of Consultation: Pulm/CCM Subjective Continue CPAP trial. Eyes open but not following commands. Objective Vital Signs Date Time Temp Pulse Resp B/P Pulse Ox O2 Delivery O2 Flow Rate FiO2 08/21/17 08:00 66 08/21/17 08:00 30 08/21/17 08:00 19 142/56 99 Mechanical Ventilator 08/21/17 07:00 97.8 Intake and Output 08/20/17 08/20/17 08/21/17 15:00 23:00 07:00 Intake Total 50 ml 70 ml 320 ml Output Total 320 ml 330 ml 410 ml Balance -270 ml -260 ml -90 ml Exam GENERAL: Elderly appearing lady on mechanical ventilation appears comfortable at rest. VITAL SIGNS: per chart NECK: Supple. No JVD or lymphadenopathy. CARDIAC EXAM: S1, S2. No added sounds or murmurs. CHEST: clear bilaterally, No added sounds, rales or wheezes ABDOMEN: Soft, nontender. No guarding or rebound. EXTREMITIES: No cyanosis, clubbing or edema. NEUROLOGIC: Generalized weakness. No focal deficits. Results/Medications Result Diagram: 08/21/17 0543 08/21/17 0543 Results 24 hrs Laboratory Tests Test 08/20/17 15:39 08/20/17 16:58 08/20/17 20:51 08/21/17 00:33 Bedside Glucose 116 118 89 87 Test 08/21/17 05:02 08/21/17 05:43 Bedside Glucose 95 White Blood Count 7.7 Red Blood Count 3.93 L Hemoglobin 9.2 L Hematocrit 30.6 L Mean Corpuscular Volume 77.9 L Mean Corpuscular Hemoglobin 23.4 L Mean Corpuscular Hemoglobin Concent 30.1 L Red Cell Distribution Width 21.3 H Platelet Count 351 Mean Platelet Volume 11.4 H Neutrophils % 53.4 Lymphocytes % 30.7 Monocytes % 7.2 Eosinophils % 7.3 H Basophils % 0.5 Nucleated Red Blood Cells % 0.0 Neutrophils # 4.1 Lymphocytes # 2.4 Monocytes # 0.6 Eosinophils # 0.6 H Basophils # 0.0 Nucleated Red Blood Cells # 0.0 Sodium Level 144 Potassium Level 3.7 Chloride Level 111 H Carbon Dioxide Level 23 Anion Gap 14 Blood Urea Nitrogen 11 Creatinine 0.51 Glucose Level 88 Calcium Level 9.1 Medications Current Medications Ondansetron HCl (Zofran Inj) 4 mg Q6H PRN IV NAUSEA AND/OR VOMITING; Start at 23:00 Acetaminophen (Tylenol Supp) 650 mg Q4H PRN [place] PAIN LEVEL 1-3 OR FEVER Last administered on 08/14/17 05:38; Admin Dose 650 MG; Start 08/13/17 at 23:00 Morphine Sulfate (morphine) 2 mg Q4H PRN IV PAIN LEVEL 7-10 Last administered on 08/19/17 02:16; Admin Dose 2 MG; Start 08/13/17 at 23:00 Ascorbic Acid (Vitamin C) 500 mg DAILY GTB Last administered on 08/19/17 09:40 ; Admin Dose 500 MG; Start 08/14/17 at 09:00 Clopidogrel Bisulfate (plaVIX) 75 mg DAILY GTB Last administered on 08/19/17 09:40; Admin Dose 75 MG; Start 08/14/17 at 09:00 Zinc Sulfate (Zinc Sulfate) 220 mg DAILY GTB Last administered on 08/19/17 09: 40; Admin Dose 220 MG; Start 08/14/17 at 09:00 Miscellaneous Information 1 ea NOTE XX ; Start 08/14/17 at 00:30 Glucose (Glutose) 15 gm Q15M PRN PO DECREASED GLUCOSE; Start 08/14/17 at 00:30 Glucose (Glutose) 22.5 gm Q15M PRN PO DECREASED GLUCOSE; Start 08/14/17 at 00: 30 Dextrose (D50w Syringe) 25 ml Q15M PRN IV DECREASED GLUCOSE; Start 08/14/17 at 00:30 Dextrose (D50w Syringe) 50 ml Q15M PRN IV DECREASED GLUCOSE; Start 08/14/17 at 00:30 Glucagon (Glucagen) 1 mg Q15M PRN IM DECREASED GLUCOSE; Start 08/14/17 at 00: 30 Glucose (Glutose) 15 gm Q15M PRN BUCCAL DECREASED GLUCOSE; Start 08/14/17 at 00:30 Bisacodyl (Dulcolax) 10 mg DAILY PRN PO CONSTIPATION Last administered on 13:58; Admin Dose 10 MG; Start 08/14/17 at 14:00 Losartan Potassium (Cozaar) 100 mg QHS GTB Last administered on 08/19/17 21:12 ; Admin Dose 100 MG; Start 08/14/17 at 21:00 Magnesium Hydroxide (Milk Of Mag) 30 ml DAILY PRN GTB CONSTIPATION Last administered on 08/18/17 08:48; Admin Dose 30 ML; Start 08/14/17 at 14:00 Miscellaneous Information (Pending Santyl Order For Wound Care) This patient valenzuela... PRN PRN XX WOUND CARE; Start 08/14/17 at 14:30 Lansoprazole (Prevacid) 30 mg DAILY@06 GTB Last administered on 08/20/17 05:46 ; Admin Dose 30 MG; Start 08/15/17 at 06:00 Collagenase (Santyl) 1 applic DAILY TOP Last administered on 08/20/17 10:29; Admin Dose 1 APPLIC; Start 08/15/17 at 15:00 Insulin Aspart NOVOLOG *MILD* ALGORI... Q4 SC Last administered on 08/20/17 09 :42; Admin Dose 1 UNIT; Start 08/16/17 at 05:00 Fentanyl (Sublimaze) 100 ml @ 2.5 mls/hr TITRATE IV Last administered on 22:43; Admin Dose 5 MLS/HR; Start 08/16/17 at 16:00 Polyethylene Glycol 17 gm 17 gm DAILY GTB Last administered on 08/19/17 09:40 ; Admin Dose 17 GM; Start 08/18/17 at 12:30 Dextrose (D5W) 1,000 ml @ 20 mls/hr Q24H IV Last administered on 08/20/17 16: 56; Admin Dose 20 MLS/HR; Start 08/20/17 at 16:00 Insulin Detemir (Levemir) 21 unit DAILY SC ; Start 08/21/17 at 09:00 Hydralazine HCl 10 mg 10 mg Q4H PRN IV ELEVATED BLOOD PRESSURE; Start 08/20/17 at 21:30 Levetiracetam (Keppra 500 Mg/ 100ml (Pmx)) 100 ml @ 400 mls/hr Q12 IVPB Last administered on 08/20/17 22:19; Admin Dose 400 MLS/HR; Start 08/20/17 at 21:30 Assessment/Plan Chief Complaint/Hosp Course IMP: 1. Hypoxemic respiratory failure, likely secondary to alveolar hypoventilation and HCAP 2. History of CVA with advanced dementia. 3. G-Tube Malfxn 4. Anemia RECS: 1. Vent support for now--> try CPAP/PS in am 2. Continue palliative care discussions with family to have plans to not re- intubate should she pass weaning trial 3. Broad-spectrum Abx 4. Monitor H&H 5. Consider GI consult for G-tube problem Critical care time 40 minutes Problems: CONI FERNANDEZ MD, [facility] Aug 21, 2017 09:39
[2017-08-21] MEDS: INSULIN DETEMIR [LEVEMIR] 3ML CART SC SCH (09:51)
[2017-08-21 09:52] LABS: Allen Test ACCEPTAB; Arterial Base Excess -3.4 mmol/L (-3.0-3); Arterial COHb 0.3 % (0.0-3.0); Arterial Fraction of Oxyhgb 97.5 % (93.0-99.0); Arterial HCO3 20.8 mmol/L (22.0-26.0); Arterial MetHb 0.4 % (0.0-1.5); Arterial Total Hemglobin 11.7 g/dl (12.0-18.0); Blood Gas PS 10; MODE VENT - CPAP
--- NOTE | 2017-08-21 09:53 | PN ---
Date/Time of Note Date/Time of Note DATE: 08/21/17 TIME: 09:42 Assessment/Plan VTE Prophylaxis VTE Prophylaxis Intervention: SCD's Lines/Catheters IV Catheter Type (from Nrs): Central Line Central line still needed: Yes Urinary Cath still in place: Yes Reason Cath still needed: urinary retention Assessment/Plan Chief Complaint/Hosp Course Assessment/Plan: 71 yo F with pmhx chronic encephalopathy and dysphagia 2/2 old CVA with chronic g tube admitted for sepsis (tachycardia/fever) possibly 2/2 healthcare associated aspiration pneumonia with ESBL Klebsiella. Now with g tube malfunctioning. 1. Hypoxemic respiratory failure - likely secondary to alveolar hypoventilation and HCAP -treated with antibiotics earlier, still intubated. -Continue vent support for now--> try CPAP/PS in am -Follow-up pulmonary recommendations - Continue palliative care discussions with family to have plans to not re- intubate should she pass weaning trial -apparently there is family meeting scheduled for today. Follow-up recommendations from this meeting. Patient with apparent worsening neurologic status, daughter from [place] to visit today, and palliative care team trying to set up the family meeting with them. 2. History of CVA with advanced dementia - cont home BP and pain meds 3. G-Tube Malfxn -GI consult pending - monitor for now, follow-up GI recommendations 4. Anemia -hemoglobin stable - monitor for now - Monitor H&H 5. DM -A1c equals 9.0. - Continue sliding scale and Levemir, patient also on D5 IV fluids. Critical care time spent on patient care today equals 50 minutes. Problems: Subjective 24 Hr Interval Summary Free Text/Dictation Patient still intubated, no acute events overnight. Awaiting possible family meeting later today. Exam/Review of Systems Vital Signs Vitals Vital Signs Date Time Temp Pulse Resp B/P Pulse Ox O2 Delivery O2 Flow Rate FiO2 08/21/17 08:00 66 08/21/17 08:00 30 08/21/17 08:00 19 142/56 99 Mechanical Ventilator 08/21/17 07:00 97.8 Intake and Output 08/20/17 08/20/17 08/21/17 15:00 23:00 07:00 Intake Total 50 ml 70 ml 320 ml Output Total 320 ml 330 ml 410 ml Balance -270 ml -260 ml -90 ml Exam Gen: Lying in bed, intubated HEENT: Neck supple; no JVD; no LAD; + et tube Neck: supple CV: RRR, S1 and S2 Res: Clear with occ rhonchi ABD: Soft, NT, + BS, + G-tube EXT: No LE edema B/L Results Result Diagram: 08/21/1743 08/21/17542 Results 24 hrs Laboratory Tests Test 08/20/17 15:39 08/20/17 16:58 08/20/17 20:51 08/21/17 00:33 Bedside Glucose 116 118 89 87 Test 08/21/17 05:02 08/21/17 05:43 Bedside Glucose 95 White Blood Count 7.7 Red Blood Count 3.93 L Hemoglobin 9.2 L Hematocrit 30.6 L Mean Corpuscular Volume 77.9 L Mean Corpuscular Hemoglobin 23.4 L Mean Corpuscular Hemoglobin Concent 30.1 L Red Cell Distribution Width 21.3 H Platelet Count 351 Mean Platelet Volume 11.4 H Neutrophils % 53.4 Lymphocytes % 30.7 Monocytes % 7.2 Eosinophils % 7.3 H Basophils % 0.5 Nucleated Red Blood Cells % 0.0 Neutrophils # 4.1 Lymphocytes # 2.4 Monocytes # 0.6 Eosinophils # 0.6 H Basophils # 0.0 Nucleated Red Blood Cells # 0.0 Sodium Level 144 Potassium Level 3.7 Chloride Level 111 H Carbon Dioxide Level 23 Anion Gap 14 Blood Urea Nitrogen 11 Creatinine 0.51 Glucose Level 88 Calcium Level 9.1 Medications Medications Current Medications Ondansetron HCl (Zofran Inj) 4 mg Q6H PRN IV NAUSEA AND/OR VOMITING; Start at 23:00 Acetaminophen (Tylenol Supp) 650 mg Q4H PRN [place] PAIN LEVEL 1-3 OR FEVER Last administered on 08/14/17 05:38; Admin Dose 650 MG; Start 08/13/17 at 23:00 Morphine Sulfate (morphine) 2 mg Q4H PRN IV PAIN LEVEL 7-10 Last administered on 08/19/17 02:16; Admin Dose 2 MG; Start 08/13/17 at 23:00 Ascorbic Acid (Vitamin C) 500 mg DAILY GTB Last administered on 08/19/17 09:40 ; Admin Dose 500 MG; Start 08/14/17 at 09:00 Clopidogrel Bisulfate (plaVIX) 75 mg DAILY GTB Last administered on 08/19/17 09:40; Admin Dose 75 MG; Start 08/14/17 at 09:00 Zinc Sulfate (Zinc Sulfate) 220 mg DAILY GTB Last administered on 08/19/17 09: 40; Admin Dose 220 MG; Start 08/14/17 at 09:00 Miscellaneous Information 1 ea NOTE XX ; Start 08/14/17 at 00:30 Glucose (Glutose) 15 gm Q15M PRN PO DECREASED GLUCOSE; Start 08/14/17 at 00:30 Glucose (Glutose) 22.5 gm Q15M PRN PO DECREASED GLUCOSE; Start 08/14/17 at 00: 30 Dextrose (D50w Syringe) 25 ml Q15M PRN IV DECREASED GLUCOSE; Start 08/14/17 at 00:30 Dextrose (D50w Syringe) 50 ml Q15M PRN IV DECREASED GLUCOSE; Start 08/14/17 at 00:30 Glucagon (Glucagen) 1 mg Q15M PRN IM DECREASED GLUCOSE; Start 08/14/17 at 00: 30 Glucose (Glutose) 15 gm Q15M PRN BUCCAL DECREASED GLUCOSE; Start 08/14/17 at 00:30 Bisacodyl (Dulcolax) 10 mg DAILY PRN PO CONSTIPATION Last administered on 13:58; Admin Dose 10 MG; Start 08/14/17 at 14:00 Losartan Potassium (Cozaar) 100 mg QHS GTB Last administered on 08/19/17 21:12 ; Admin Dose 100 MG; Start 08/14/17 at 21:00 Magnesium Hydroxide (Milk Of Mag) 30 ml DAILY PRN GTB CONSTIPATION Last administered on 08/18/17 08:48; Admin Dose 30 ML; Start 08/14/17 at 14:00 Miscellaneous Information (Pending Santyl Order For Wound Care) This patient valenzuela... PRN PRN XX WOUND CARE; Start 08/14/17 at 14:30 Lansoprazole (Prevacid) 30 mg DAILY@06 GTB Last administered on 08/20/17 05:46 ; Admin Dose 30 MG; Start 08/15/17 at 06:00 Collagenase (Santyl) 1 applic DAILY TOP Last administered on 08/20/17 10:29; Admin Dose 1 APPLIC; Start 08/15/17 at 15:00 Insulin Aspart NOVOLOG *MILD* ALGORI... Q4 SC Last administered on 08/20/17 09 :42; Admin Dose 1 UNIT; Start 08/16/17 at 05:00 Fentanyl (Sublimaze) 100 ml @ 2.5 mls/hr TITRATE IV Last administered on 22:43; Admin Dose 5 MLS/HR; Start 08/16/17 at 16:00 Polyethylene Glycol 17 gm 17 gm DAILY GTB Last administered on 08/19/17 09:40 ; Admin Dose 17 GM; Start 08/18/17 at 12:30 Dextrose (D5W) 1,000 ml @ 20 mls/hr Q24H IV Last administered on 08/20/17 16: 56; Admin Dose 20 MLS/HR; Start 08/20/17 at 16:00 Insulin Detemir (Levemir) 21 unit DAILY SC ; Start 08/21/17 at 09:00 Hydralazine HCl 10 mg 10 mg Q4H PRN IV ELEVATED BLOOD PRESSURE; Start 08/20/17 at 21:30 Levetiracetam (Keppra 500 Mg/ 100ml (Pmx)) 100 ml @ 400 mls/hr Q12 IVPB Last administered on 08/20/17 22:19; Admin Dose 400 MLS/HR; Start 08/20/17 at 21:30 VIKTOR ESPINOZA 6, 2017 09:52
[2017-08-21] MEDS ORDERED: CEFAZOLIN 2 GM/50 ML (PMX) 0 ML IVPB ONE (15:38)
[2017-08-21] MEDS: DEXTROSE 5% 1,000 ML IV SCH (16:00)
[2017-08-21] MEDS ORDERED: PROPOFOL 0 ML ONE (16:25)
[2017-08-21] MEDS ORDERED: ETOMIDATE 20 MG INJ ONE (16:25)
[2017-08-21] MEDS ORDERED: FENTAnyl 50 MCG/ML VIAL ONE (16:25)
[2017-08-21] MEDS: LOSARTAN 50 MG TAB GTB SCH (21:00)
[2017-08-22] VITALS (34 sets, daily range): BP systolic 131–168; BP diastolic 54–118; PULSE 56–81; RESP 16–25
[2017-08-22] MEDS: INSULIN ASPART [NOVOLOG] 3 ML PEN SC SCH ×6 (01:00→21:00)
[2017-08-22 05:32] LABS: BASOPHIL # 0.1 10^3/ul (0.0-0.1); BASOPHILS % 0.8 % (0.0-2.0); EOSINOPHILS # 0.7 10^3/ul (0.0-0.5); EOSINOPHILS % 10.4 % (0.0-7.0); HEMATOCRIT 29.5 % (37.0-47.0); HEMOGLOBIN 8.7 g/dl (12.0-16.0); LYMPHOCYTES % 30.1 % (15.0-51.0); MEAN CORPUSCULAR HEMOGLOBIN 22.9 pg (29.0-33.0); MEAN CORPUSCULAR HGB CONC 29.5 g/dl (32.0-37.0); MEAN CORPUSCULAR VOLUME 77.6 fl (82.0-101.0); MEAN PLATELET VOLUME 11.5 fl (7.4-10.4); MONOCYTE # 0.5 10^3/ul (0.3-0.9); MONOCYTES % 7.6 % (0.0-11.0); NEUTROPHIL # 3.3 10^3/ul (1.6-7.5); NEUTROPHILS % 50.2 % (39.0-77.0); PLATELET COUNT 350 10^3/UL (140-415); RED CELL DISTRIBUTION WIDTH 21.9 % (11.5-14.5); WHITE BLOOD COUNT 6.6 10^3/ul (4.8-10.8)
[2017-08-22 05:48] LABS: CALCIUM 8.8 mg/dl (8.4-10.2); CREATININE 0.53 mg/dl (0.44-1.00); MAGNESIUM 2.3 mg/dl (1.7-2.5); PHOSPHORUS 3.5 mg/dl (2.5-4.9); POTASSIUM 3.1 mmol/L (3.5-5.1)
[2017-08-22] MEDS: LANSOPRAZOLE 30 MG CAP GTB SCH (05:57)
--- NOTE | 2017-08-22 06:59 | RADRPT ---
PROCEDURE: XR Chest. CLINICAL INDICATION: Shortness of breath. TECHNIQUE: Single frontal view. COMPARISON: 08/19/2017. FINDINGS: The endotracheal tube and left internal jugular vein catheter remain in satisfactory position. There is mild atelectasis at the lung bases, unchanged. The lungs are otherwise clear. The heart size is normal. There is no pleural effusion. There is no pneumothorax. IMPRESSION: 1. No change from the 08/19/2017 chest radiograph. RPTAT: QQ .Nile Durán MD, MD Date Time Electronically viewed and signed by .Nile Durán MD, MD on 08/22/2017 06:58 .R/
[2017-08-22] MEDS: POLYETHYLENE GLYCOL 17 GM PACKET GTB SCH (08:53)
[2017-08-22] MEDS: ZINC SULFATE 220 MG CAP GTB SCH (08:53)
[2017-08-22] MEDS: CLOPIDOGREL 75 MG TAB GTB SCH (08:53)
[2017-08-22] MEDS: ASCORBIC ACID 500 MG TAB GTB SCH (08:53)
[2017-08-22] MEDS: INSULIN DETEMIR [LEVEMIR] 3ML CART SC SCH (08:54)
[2017-08-22] MEDS: COLLAGENASE 30 GM TUBE TOP SCH (08:55)
--- NOTE | 2017-08-22 09:14 | PN ---
Date/Time of Note Date/Time of Note DATE: 08/22/17 TIME: 09:10 Assessment/Plan VTE Prophylaxis VTE Prophylaxis Intervention: SCD's Lines/Catheters IV Catheter Type (from Nrs): Central Line Central line still needed: Yes Urinary Cath still in place: Yes Reason Cath still needed: urinary retention Assessment/Plan Chief Complaint/Hosp Course Assessment/Plan: 71 yo F with pmhx chronic encephalopathy and dysphagia 2/2 old CVA with chronic g tube admitted for sepsis (tachycardia/fever) possibly 2/2 healthcare associated aspiration pneumonia with ESBL Klebsiella. Now with g tube malfunctioning. 1. Hypoxemic respiratory failure - likely secondary to alveolar hypoventilation and HCAP -treated with antibiotics earlier, still intubated. Appears to have resolved now. -Continue vent support for now--> try CPAP/PS in am possibly again depending on final decisions from family meeting. -Follow-up pulmonary recommendations - Continue palliative care discussions with family regarding plans to not re- intubate should she pass weaning trial -also to consider tracheostomy versus no tracheostomy. Family meeting scheduled for today. Follow-up recommendations from this meeting. Patient with apparent underlying dementia. 2. History of CVA with advanced dementia -Monitor, cont home BP and pain meds 3. G-Tube Malfxn -GI consult appreciated, s/p G-tube fixation yesterday - monitor for now, continue tube feeds as tolerated, follow-up GI recommendations 4. Anemia -hemoglobin stable - Monitor H&H 5. DM -A1c equals 9.0 -sugars in the high normal range the last 24 hours. - Continue sliding scale and Levemir Critical care time spent on patient care today equals 40 minutes. Problems: Subjective 24 Hr Interval Summary Free Text/Dictation Patient still intubated, no acute events overnight. G-tube was repaired yesterday, now on G-tube feeds. Exam/Review of Systems Vital Signs Vitals Vital Signs Date Time Temp Pulse Resp B/P Pulse Ox O2 Delivery O2 Flow Rate FiO2 08/22/17 08:00 30 08/22/17 08:00 63 08/22/17 06:00 16 148/58 100 Mechanical Ventilator 08/22/17 04:00 98.7 Intake and Output 08/21/17 08/21/17 08/22/17 15:00 23:00 07:00 Intake Total 180 ml 360 ml 560 ml Output Total 100 ml 210 ml Balance 180 ml 260 ml 350 ml Exam Gen: Lying in bed, intubated, but opens eyes HEENT: Neck supple; no JVD; no LAD; + et tube Neck: supple CV: RRR, S1 and S2 Res: Clear with occ rhonchi ABD: Soft, NT, + BS, + G-tube EXT: No LE edema B/L Results Result Diagram: 08/22/17 0455 08/22/17 0455 Results 24 hrs Laboratory Tests Test 08/21/17 09:36 08/21/17 13:26 08/21/17 18:18 08/21/17 21:21 Bedside Glucose 121 112 89 106 Test 08/22/17 01:47 08/22/17 04:55 08/22/17 05:57 Bedside Glucose 112 117 White Blood Count 6.6 Red Blood Count 3.80 L Hemoglobin 8.7 L Hematocrit 29.5 L Mean Corpuscular Volume 77.6 L Mean Corpuscular Hemoglobin 22.9 L Mean Corpuscular Hemoglobin Concent 29.5 L Red Cell Distribution Width 21.9 H Platelet Count 350 Mean Platelet Volume 11.5 H Neutrophils % 50.2 Lymphocytes % 30.1 Monocytes % 7.6 Eosinophils % 10.4 H Basophils % 0.8 Nucleated Red Blood Cells % 0.0 Neutrophils # 3.3 Lymphocytes # 2.0 Monocytes # 0.5 Eosinophils # 0.7 H Basophils # 0.1 Nucleated Red Blood Cells # 0.0 Sodium Level 144 Potassium Level 3.1 L Chloride Level 111 H Carbon Dioxide Level 22 Anion Gap 14 Blood Urea Nitrogen 11 Creatinine 0.53 Glucose Level 130 # Calcium Level 8.8 Phosphorus Level 3.5 Magnesium Level 2.3 Medications Medications Current Medications Ondansetron HCl (Zofran Inj) 4 mg Q6H PRN IV NAUSEA AND/OR VOMITING; Start at 23:00 Acetaminophen (Tylenol Supp) 650 mg Q4H PRN [place] PAIN LEVEL 1-3 OR FEVER Last administered on 08/14/17 05:38; Admin Dose 650 MG; Start 08/13/17 at 23:00 Morphine Sulfate (morphine) 2 mg Q4H PRN IV PAIN LEVEL 7-10 Last administered on 08/19/17 02:16; Admin Dose 2 MG; Start 08/13/17 at 23:00 Ascorbic Acid (Vitamin C) 500 mg DAILY GTB Last administered on 08/22/17 08:53 ; Admin Dose 500 MG; Start 08/14/17 at 09:00 Clopidogrel Bisulfate (plaVIX) 75 mg DAILY GTB Last administered on 08/22/17 08:53; Admin Dose 75 MG; Start 08/14/17 at 09:00 Zinc Sulfate (Zinc Sulfate) 220 mg DAILY GTB Last administered on 08/22/17 08: 53; Admin Dose 220 MG; Start 08/14/17 at 09:00 Miscellaneous Information 1 ea NOTE XX ; Start 08/14/17 at 00:30 Glucose (Glutose) 15 gm Q15M PRN PO DECREASED GLUCOSE; Start 08/14/17 at 00:30 Glucose (Glutose) 22.5 gm Q15M PRN PO DECREASED GLUCOSE; Start 08/14/17 at 00: 30 Dextrose (D50w Syringe) 25 ml Q15M PRN IV DECREASED GLUCOSE; Start 08/14/17 at 00:30 Dextrose (D50w Syringe) 50 ml Q15M PRN IV DECREASED GLUCOSE; Start 08/14/17 at 00:30 Glucagon (Glucagen) 1 mg Q15M PRN IM DECREASED GLUCOSE; Start 08/14/17 at 00: 30 Glucose (Glutose) 15 gm Q15M PRN BUCCAL DECREASED GLUCOSE; Start 08/14/17 at 00:30 Bisacodyl (Dulcolax) 10 mg DAILY PRN PO CONSTIPATION Last administered on 13:58; Admin Dose 10 MG; Start 08/14/17 at 14:00 Losartan Potassium (Cozaar) 100 mg QHS GTB Last administered on 08/19/17 21:12 ; Admin Dose 100 MG; Start 08/14/17 at 21:00 Magnesium Hydroxide (Milk Of Mag) 30 ml DAILY PRN GTB CONSTIPATION Last administered on 08/18/17 08:48; Admin Dose 30 ML; Start 08/14/17 at 14:00 Miscellaneous Information (Pending Santyl Order For Wound Care) This patient valenzuela... PRN PRN XX WOUND CARE; Start 08/14/17 at 14:30 Lansoprazole (Prevacid) 30 mg DAILY@06 GTB Last administered on 08/22/17 05:57 ; Admin Dose 30 MG; Start 08/15/17 at 06:00 Collagenase (Santyl) 1 applic DAILY TOP Last administered on 08/22/17 08:55; Admin Dose 1 APPLIC; Start 08/15/17 at 15:00 Insulin Aspart NOVOLOG *MILD* ALGORI... Q4 SC Last administered on 08/22/17 08 :58; Admin Dose 2 UNIT; Start 08/16/17 at 05:00 Fentanyl (Sublimaze) 100 ml @ 2.5 mls/hr TITRATE IV Last administered on 22:43; Admin Dose 5 MLS/HR; Start 08/16/17 at 16:00 Polyethylene Glycol 17 gm 17 gm DAILY GTB Last administered on 08/22/17 08:53 ; Admin Dose 17 GM; Start 08/18/17 at 12:30 Dextrose (D5W) 1,000 ml @ 20 mls/hr Q24H IV Last administered on 08/20/17 16: 56; Admin Dose 20 MLS/HR; Start 08/20/17 at 16:00 Insulin Detemir (Levemir) 21 unit DAILY SC Last administered on 08/22/17 08:54 ; Admin Dose 21 UNIT; Start 08/21/17 at 09:00 Hydralazine HCl 10 mg 10 mg Q4H PRN IV ELEVATED BLOOD PRESSURE; Start 08/20/17 at 21:30 Levetiracetam 100 ml @ 400 mls/hr Q12 IVPB Last administered on 08/21/17 09: 38; Admin Dose 400 MLS/HR; Start 08/20/17 at 21:30 Potassium Chloride (KCl 40 MEQ/250 ML NS) 250 ml @ 62.5 mls/hr Q4H IVPB ; Start 08/22/17 at 09:30; Stop 08/22/17 at 17:29; Status VIKTOR BRONSON Aug 22, 2017 09:14
[2017-08-22] MEDS: LEVETIRACETAM 500 MG (PMX) 100 ML IVPB SCH ×2 (09:23→21:26)
--- NOTE | 2017-08-22 09:36 | CONS ---
Date/Time of Note Date/Time of Note DATE: 08/22/17 TIME: 09:34 Consult Date/Type/Reason Admit Date/Time Aug 13, 2017 at 22:40 Initial Consult Date 08/14/17 Type of Consultation: Pulm/CCM Subjective Patient tolerated to CPAP trial yesterday. Still lethargic however concern for airway protection. Objective Vital Signs Date Time Temp Pulse Resp B/P Pulse Ox O2 Delivery O2 Flow Rate FiO2 08/22/17 08:00 30 08/22/17 08:00 63 08/22/17 06:00 16 148/58 100 Mechanical Ventilator 08/22/17 04:00 98.7 Intake and Output 08/21/17 08/21/17 08/22/17 15:00 23:00 07:00 Intake Total 180 ml 360 ml 560 ml Output Total 100 ml 210 ml Balance 180 ml 260 ml 350 ml Exam GENERAL: Elderly appearing lady on mechanical ventilation appears comfortable at rest. VITAL SIGNS: per chart NECK: Supple. No JVD or lymphadenopathy. CARDIAC EXAM: S1, S2. No added sounds or murmurs. CHEST: clear bilaterally, No added sounds, rales or wheezes ABDOMEN: Soft, nontender. No guarding or rebound. EXTREMITIES: No cyanosis, clubbing or edema. NEUROLOGIC: Generalized weakness. No focal deficits. Results/Medications Result Diagram: 08/22/17 0455 08/22/17 0455 Results 24 hrs Laboratory Tests Test 08/21/17 09:36 08/21/17 13:26 08/21/17 18:18 08/21/17 21:21 Bedside Glucose 121 112 89 106 Test 08/22/17 01:47 08/22/17 04:55 08/22/17 05:57 08/22/17 08:57 Bedside Glucose 112 117 181 White Blood Count 6.6 Red Blood Count 3.80 L Hemoglobin 8.7 L Hematocrit 29.5 L Mean Corpuscular Volume 77.6 L Mean Corpuscular Hemoglobin 22.9 L Mean Corpuscular Hemoglobin Concent 29.5 L Red Cell Distribution Width 21.9 H Platelet Count 350 Mean Platelet Volume 11.5 H Neutrophils % 50.2 Lymphocytes % 30.1 Monocytes % 7.6 Eosinophils % 10.4 H Basophils % 0.8 Nucleated Red Blood Cells % 0.0 Neutrophils # 3.3 Lymphocytes # 2.0 Monocytes # 0.5 Eosinophils # 0.7 H Basophils # 0.1 Nucleated Red Blood Cells # 0.0 Sodium Level 144 Potassium Level 3.1 L Chloride Level 111 H Carbon Dioxide Level 22 Anion Gap 14 Blood Urea Nitrogen 11 Creatinine 0.53 Glucose Level 130 # Calcium Level 8.8 Phosphorus Level 3.5 Magnesium Level 2.3 Medications Current Medications Ondansetron HCl (Zofran Inj) 4 mg Q6H PRN IV NAUSEA AND/OR VOMITING; Start at 23:00 Acetaminophen (Tylenol Supp) 650 mg Q4H PRN [place] PAIN LEVEL 1-3 OR FEVER Last administered on 08/14/17 05:38; Admin Dose 650 MG; Start 08/13/17 at 23:00 Morphine Sulfate (morphine) 2 mg Q4H PRN IV PAIN LEVEL 7-10 Last administered on 08/19/17 02:16; Admin Dose 2 MG; Start 08/13/17 at 23:00 Ascorbic Acid (Vitamin C) 500 mg DAILY GTB Last administered on 08/22/17 08:53 ; Admin Dose 500 MG; Start 08/14/17 at 09:00 Clopidogrel Bisulfate (plaVIX) 75 mg DAILY GTB Last administered on 08/22/17 08:53; Admin Dose 75 MG; Start 08/14/17 at 09:00 Zinc Sulfate (Zinc Sulfate) 220 mg DAILY GTB Last administered on 08/22/17 08: 53; Admin Dose 220 MG; Start 08/14/17 at 09:00 Miscellaneous Information 1 ea NOTE XX ; Start 08/14/17 at 00:30 Glucose (Glutose) 15 gm Q15M PRN PO DECREASED GLUCOSE; Start 08/14/17 at 00:30 Glucose (Glutose) 22.5 gm Q15M PRN PO DECREASED GLUCOSE; Start 08/14/17 at 00: 30 Dextrose (D50w Syringe) 25 ml Q15M PRN IV DECREASED GLUCOSE; Start 08/14/17 at 00:30 Dextrose (D50w Syringe) 50 ml Q15M PRN IV DECREASED GLUCOSE; Start 08/14/17 at 00:30 Glucagon (Glucagen) 1 mg Q15M PRN IM DECREASED GLUCOSE; Start 08/14/17 at 00: 30 Glucose (Glutose) 15 gm Q15M PRN BUCCAL DECREASED GLUCOSE; Start 08/14/17 at 00:30 Bisacodyl (Dulcolax) 10 mg DAILY PRN PO CONSTIPATION Last administered on 13:58; Admin Dose 10 MG; Start 08/14/17 at 14:00 Losartan Potassium (Cozaar) 100 mg QHS GTB Last administered on 08/19/17 21:12 ; Admin Dose 100 MG; Start 08/14/17 at 21:00 Magnesium Hydroxide (Milk Of Mag) 30 ml DAILY PRN GTB CONSTIPATION Last administered on 08/18/17 08:48; Admin Dose 30 ML; Start 08/14/17 at 14:00 Miscellaneous Information (Pending Santyl Order For Wound Care) This patient valenzuela... PRN PRN XX WOUND CARE; Start 08/14/17 at 14:30 Lansoprazole (Prevacid) 30 mg DAILY@06 GTB Last administered on 08/22/17 05:57 ; Admin Dose 30 MG; Start 08/15/17 at 06:00 Collagenase (Santyl) 1 applic DAILY TOP Last administered on 08/22/17 08:55; Admin Dose 1 APPLIC; Start 08/15/17 at 15:00 Insulin Aspart NOVOLOG *MILD* ALGORI... Q4 SC Last administered on 08/22/17 08 :58; Admin Dose 2 UNIT; Start 08/16/17 at 05:00 Fentanyl (Sublimaze) 100 ml @ 2.5 mls/hr TITRATE IV Last administered on 22:43; Admin Dose 5 MLS/HR; Start 08/16/17 at 16:00 Polyethylene Glycol 17 gm 17 gm DAILY GTB Last administered on 08/22/17 08:53 ; Admin Dose 17 GM; Start 08/18/17 at 12:30 Dextrose (D5W) 1,000 ml @ 20 mls/hr Q24H IV Last administered on 08/20/17 16: 56; Admin Dose 20 MLS/HR; Start 08/20/17 at 16:00 Insulin Detemir (Levemir) 21 unit DAILY SC Last administered on 08/22/17 08:54 ; Admin Dose 21 UNIT; Start 08/21/17 at 09:00 Hydralazine HCl 10 mg 10 mg Q4H PRN IV ELEVATED BLOOD PRESSURE; Start 08/20/17 at 21:30 Levetiracetam 100 ml @ 400 mls/hr Q12 IVPB Last administered on 08/22/17t 09: 23; Admin Dose 400 MLS/HR; Start 08/20/17 at 21:30 Potassium Chloride (KCl 40 MEQ/250 ML NS) 250 ml @ 62.5 mls/hr Q4H IVPB ; Start 08/22/17 at 09:30; Stop 08/22/17 at 17:29; Status UNV Assessment/Plan Chief Complaint/Hosp Course IMP: 1. Hypoxemic respiratory failure, likely secondary to alveolar hypoventilation and HCAP 2. History of CVA with advanced dementia. 3. G-Tube Malfxn 4. Anemia RECS: 1. Vent support for now--> repeat CPAP trial. 2. Family arriving from out of town today. We will discuss goals of care and reintubation CODE STATUS. 3. Broad-spectrum Abx 4. Monitor H&H 5. Consider GI consult for G-tube problem Critical care time 40 minutes Problems: CONI FERNANDEZ MD, [facility] Aug 22, 2017 09:36
[2017-08-22] MEDS: POTASSIUM CHLORIDE 250 ML IVPB SCH ×2 (10:26→14:26)
--- NOTE | 2017-08-22 14:01 | CONS ---
Date/Time of Note Date/Time of Note DATE: 08/22/17 TIME: 13:59 Assessment/Plan Assessment/Plan Additional Assessment/Plan There is been no clinical improvement since last time I seen which was 3 days ago August 19. Family will be arriving soon from the [facility] and family conference will be done at that time. Consultation Date/Type/Reason Admit Date/Time Aug 13, 2017 at 22:40 Initial Consult Date 08/14/17 Type of Consultation: Palliative care Exam/Review of Systems Vital Signs Vitals Vital Signs Date Time Temp Pulse Resp B/P Pulse Ox O2 Delivery O2 Flow Rate FiO2 08/22/17 13:00 72 22 164/72 100 Mechanical Ventilator 08/22/17 12:00 98.6 08/22/17 08:00 30 Intake and Output 08/21/17 08/21/17 08/22/17 15:00 23:00 07:00 Intake Total 180 ml 360 ml 610 ml Output Total 100 ml 260 ml Balance 180 ml 260 ml 350 ml Exam Neurological: other (No response to verbal stimuli, closes her eyes shut when stimulated and when I try and open her eyes. Cannot evaluate oculocephalics, she does over breathe the ventilator there is no spontaneous purposeful movement.) Results Result Diagram: 08/22/17 0455 08/22/17 0455 Results 24 hrs Laboratory Tests Test 08/21/17 18:18 08/21/17 21:21 08/22/17 01:47 08/22/17 04:55 Bedside Glucose 89 106 112 White Blood Count 6.6 Red Blood Count 3.80 L Hemoglobin 8.7 L Hematocrit 29.5 L Mean Corpuscular Volume 77.6 L Mean Corpuscular Hemoglobin 22.9 L Mean Corpuscular Hemoglobin Concent 29.5 L Red Cell Distribution Width 21.9 H Platelet Count 350 Mean Platelet Volume 11.5 H Neutrophils % 50.2 Lymphocytes % 30.1 Monocytes % 7.6 Eosinophils % 10.4 H Basophils % 0.8 Nucleated Red Blood Cells % 0.0 Neutrophils # 3.3 Lymphocytes # 2.0 Monocytes # 0.5 Eosinophils # 0.7 H Basophils # 0.1 Nucleated Red Blood Cells # 0.0 Sodium Level 144 Potassium Level 3.1 L Chloride Level 111 H Carbon Dioxide Level 22 Anion Gap 14 Blood Urea Nitrogen 11 Creatinine 0.53 Glucose Level 130 # Calcium Level 8.8 Phosphorus Level 3.5 Magnesium Level 2.3 Test 08/22/17 05:57 08/22/17 08:57 Bedside Glucose 117 181 Medications Medications Current Medications Ondansetron HCl (Zofran Inj) 4 mg Q6H PRN IV NAUSEA AND/OR VOMITING; Start at 23:00 Acetaminophen (Tylenol Supp) 650 mg Q4H PRN [place] PAIN LEVEL 1-3 OR FEVER Last administered on 08/14/17 05:38; Admin Dose 650 MG; Start 08/13/17 at 23:00 Morphine Sulfate (morphine) 2 mg Q4H PRN IV PAIN LEVEL 7-10 Last administered on 08/19/17 02:16; Admin Dose 2 MG; Start 08/13/17 at 23:00 Ascorbic Acid (Vitamin C) 500 mg DAILY GTB Last administered on 08/22/17 08:53 ; Admin Dose 500 MG; Start 08/14/17 at 09:00 Clopidogrel Bisulfate (plaVIX) 75 mg DAILY GTB Last administered on 08/22/17 08:53; Admin Dose 75 MG; Start 08/14/17 at 09:00 Zinc Sulfate (Zinc Sulfate) 220 mg DAILY GTB Last administered on 08/22/17 08: 53; Admin Dose 220 MG; Start 08/14/17 at 09:00 Miscellaneous Information 1 ea NOTE XX ; Start 08/14/17 at 00:30 Glucose (Glutose) 15 gm Q15M PRN PO DECREASED GLUCOSE; Start 08/14/17 at 00:30 Glucose (Glutose) 22.5 gm Q15M PRN PO DECREASED GLUCOSE; Start 08/14/17 at 00: 30 Dextrose (D50w Syringe) 25 ml Q15M PRN IV DECREASED GLUCOSE; Start 08/14/17 at 00:30 Dextrose (D50w Syringe) 50 ml Q15M PRN IV DECREASED GLUCOSE; Start 08/14/17 at 00:30 Glucagon (Glucagen) 1 mg Q15M PRN IM DECREASED GLUCOSE; Start 08/14/17 at 00: 30 Glucose (Glutose) 15 gm Q15M PRN BUCCAL DECREASED GLUCOSE; Start 08/14/17 at 00:30 Bisacodyl (Dulcolax) 10 mg DAILY PRN PO CONSTIPATION Last administered on 13:58; Admin Dose 10 MG; Start 08/14/17 at 14:00 Losartan Potassium (Cozaar) 100 mg QHS GTB Last administered on 08/19/17 21:12 ; Admin Dose 100 MG; Start 08/14/17 at 21:00 Magnesium Hydroxide (Milk Of Mag) 30 ml DAILY PRN GTB CONSTIPATION Last administered on 08/18/17 08:48; Admin Dose 30 ML; Start 08/14/17 at 14:00 Miscellaneous Information (Pending Santyl Order For Wound Care) This patient valenzuela... PRN PRN XX WOUND CARE; Start 08/14/17 at 14:30 Lansoprazole (Prevacid) 30 mg DAILY@06 GTB Last administered on 08/22/17 05:57 ; Admin Dose 30 MG; Start 08/15/17 at 06:00 Collagenase (Santyl) 1 applic DAILY TOP Last administered on 08/22/17 08:55; Admin Dose 1 APPLIC; Start 08/15/17 at 15:00 Insulin Aspart NOVOLOG *MILD* ALGORI... Q4 SC Last administered on 08/22/17 08 :58; Admin Dose 2 UNIT; Start 08/16/17 at 05:00 Fentanyl (Sublimaze) 100 ml @ 2.5 mls/hr TITRATE IV Last administered on 22:43; Admin Dose 5 MLS/HR; Start 08/16/17 at 16:00 Polyethylene Glycol 17 gm 17 gm DAILY GTB Last administered on 08/22/17 08:53 ; Admin Dose 17 GM; Start 08/18/17 at 12:30 Dextrose (D5W) 1,000 ml @ 20 mls/hr Q24H IV Last administered on 08/20/17 16: 56; Admin Dose 20 MLS/HR; Start 08/20/17 at 16:00 Insulin Detemir (Levemir) 21 unit DAILY SC Last administered on 08/22/17 08:54 ; Admin Dose 21 UNIT; Start 08/21/17 at 09:00 Hydralazine HCl 10 mg 10 mg Q4H PRN IV ELEVATED BLOOD PRESSURE; Start 08/20/17 at 21:30 Levetiracetam 100 ml @ 400 mls/hr Q12 IVPB Last administered on 08/22/17 09: 23; Admin Dose 400 MLS/HR; Start 08/20/17 at 21:30 Potassium Chloride (KCl 40 MEQ/250 ML NS) 250 ml @ 62.5 mls/hr Q4H IVPB Last administered on 08/22/17t 10:26; Admin Dose 62.5 MLS/HR; Start 08/22/17 at 09:30 ; Stop 08/22/17 at 17:29 PARMJIT AYALA Aug 22, 2017 14:01
[2017-08-22 14:07] LABS: AADO2 Arterial 66.3 mmHg (7.0-24.0); Allen Test ACCEPTAB; Arterial COHb 0.3 % (0.0-3.0); Arterial Fraction of Oxyhgb 97.2 % (93.0-99.0); Arterial HCO3 20.6 mmol/L (22.0-26.0); Arterial MetHb 0.3 % (0.0-1.5); Arterial Total Hemglobin 10.6 g/dl (12.0-18.0); Blood Gas PS 10; MODE VENT - CPAP
[2017-08-22] MEDS: DEXTROSE 5% 1,000 ML IV SCH (16:00)
--- NOTE | 2017-08-22 17:56 | PN ---
Date/Time of Note Date/Time of Note DATE: 08/22/17 TIME: 17:51 Assessment/Plan VTE Prophylaxis VTE Prophylaxis Intervention: SCD's Lines/Catheters IV Catheter Type (from Nrs): Central Line Central line still needed: Yes Urinary Cath still in place: Yes Reason Cath still needed: other (indicate) (Monitor output) Assessment/Plan Chief Complaint/Hosp Course Assessment: G-Tube Malfunction- s/p G-tube fixation yesterday Hypoxemic respiratory failure - Family meeting scheduled for today. History of CVA Advanced dementia Anemia -hemoglobin stable DM Plan: Continue TF as tolerated PEG care We will sign off on this patient, will be available if needed Patient seen collaboration with Dr. Solorzano Subjective: Course reviewed with nursing staff Patient interviewed and examined All labs, imaging and other results reviewed The patient can change, G-tube working well, Tolerating tube feeding well. Continue g-tube care Sign off on this case but will be available if needed PHYSICAL EXAMINATION: GENERAL: Well developed, debated with eyes open SKIN: No lesions, no stigmata chronic liver disease, no evidence of bleeding diathesis LYMPHATIC: No palpable lymphadenopathy. HEAD: Normocephalic, atraumatic, no tenderness. EYES: Pupils equal reactive to light and accommodation, full extraocular movements, sclera clear, non-icteric, no discharge. EARS/NOSE AND THROAT: Ears normal, nose normal, intubated. NECK: Supple, no masses. CHEST: Inspection within normal limits. CARDIOVASCULAR: Heart: Regular rate and rhythm, no murmurs, gallops or rubs. RESPIRATORY: Lungs clear to auscultation and percussion, no wheezing, no rubs GASTROINTESTINAL AND LIVER: Abdomen: Soft, non tenderness, non-distended, no hernias, no masses, no guarding, no rebound tenderness, normoactive bowel sounds. Tube in place Rectal: Deferred. GENITOURINARY: Female genitalia within normal limits. Problems: Exam/Review of Systems Vital Signs Vitals Vital Signs Date Time Temp Pulse Resp B/P Pulse Ox O2 Delivery O2 Flow Rate FiO2 08/22/17 17:00 71 24 146/63 100 Mechanical Ventilator 08/22/17 16:00 98.4 08/22/17 15:10 30 Intake and Output 08/21/17 08/21/17 08/22/17 15:00 23:00 07:00 Intake Total 180 ml 360 ml 610 ml Output Total 100 ml 260 ml Balance 180 ml 260 ml 350 ml Results Result Diagram: 08/22/17 0455 08/22/17 0455 Results 24 hrs Laboratory Tests Test 08/21/17 18:18 08/21/17 21:21 08/22/17 01:47 08/22/17 04:55 Bedside Glucose 89 106 112 White Blood Count 6.6 Red Blood Count 3.80 L Hemoglobin 8.7 L Hematocrit 29.5 L Mean Corpuscular Volume 77.6 L Mean Corpuscular Hemoglobin 22.9 L Mean Corpuscular Hemoglobin Concent 29.5 L Red Cell Distribution Width 21.9 H Platelet Count 350 Mean Platelet Volume 11.5 H Neutrophils % 50.2 Lymphocytes % 30.1 Monocytes % 7.6 Eosinophils % 10.4 H Basophils % 0.8 Nucleated Red Blood Cells % 0.0 Neutrophils # 3.3 Lymphocytes # 2.0 Monocytes # 0.5 Eosinophils # 0.7 H Basophils # 0.1 Nucleated Red Blood Cells # 0.0 Sodium Level 144 Potassium Level 3.1 L Chloride Level 111 H Carbon Dioxide Level 22 Anion Gap 14 Blood Urea Nitrogen 11 Creatinine 0.53 Glucose Level 130 # Calcium Level 8.8 Phosphorus Level 3.5 Magnesium Level 2.3 Test 08/22/17 05:57 08/22/17 08:57 08/22/17 13:31 08/22/17 14:24 Bedside Glucose 117 181 144 Blood Gas Specimen Source Blood arterial Arterial Blood Date Drawn 08/22/2017 1:50:51 PM Arterial Blood pH (Temp corrected) 7.431 Arterial Blood pCO2 (Temp correct) 31.6 L Arterial Blood pO2 (Temp corrected) 110.5 H Arterial Blood HCO3 20.6 L Arterial Blood Base Excess -3.0 Arterial Blood Oxygen Saturation 97.8 Girish Test ACCEPTAB Arterial Blood Gas Puncture Site Right Radial Arterial Blood Carboxyhemoglobin 0.3 Arterial Blood Methemoglobin 0.3 Blood Gas A-a O2 Differential 66.3 H Oxyhemoglobin Percent 97.2 Total Hemoglobin 10.6 L Blood Gas Temperature 37.0 Blood Gas Actual Respiration Rate 28 Blood Gas Modality VENT - CPAP FiO2 30.0 Blood Gas Low PEEP Setting 5.0 Blood Gas Pressure Support 10 Blood Gas Notified Whom JLD Blood Gas Notified Time 08/22/2017 2:07:39 PM Test 08/22/17 16:23 Bedside Glucose 109 Medications Medications Current Medications Ondansetron HCl (Zofran Inj) 4 mg Q6H PRN IV NAUSEA AND/OR VOMITING; Start at 23:00 Acetaminophen (Tylenol Supp) 650 mg Q4H PRN [place] PAIN LEVEL 1-3 OR FEVER Last administered on 08/14/17 05:38; Admin Dose 650 MG; Start 08/13/17 at 23:00 Morphine Sulfate (morphine) 2 mg Q4H PRN IV PAIN LEVEL 7-10 Last administered on 08/19/17 02:16; Admin Dose 2 MG; Start 08/13/17 at 23:00 Ascorbic Acid (Vitamin C) 500 mg DAILY GTB Last administered on 08/22/17 08:53 ; Admin Dose 500 MG; Start 08/14/17 at 09:00 Clopidogrel Bisulfate (plaVIX) 75 mg DAILY GTB Last administered on 08/22/17 08:53; Admin Dose 75 MG; Start 08/14/17 at 09:00 Zinc Sulfate (Zinc Sulfate) 220 mg DAILY GTB Last administered on 08/22/17 08: 53; Admin Dose 220 MG; Start 08/14/17 at 09:00 Miscellaneous Information 1 ea NOTE XX ; Start 08/14/17 at 00:30 Glucose (Glutose) 15 gm Q15M PRN PO DECREASED GLUCOSE; Start 08/14/17 at 00:30 Glucose (Glutose) 22.5 gm Q15M PRN PO DECREASED GLUCOSE; Start 08/14/17 at 00: 30 Dextrose (D50w Syringe) 25 ml Q15M PRN IV DECREASED GLUCOSE; Start 08/14/17 at 00:30 Dextrose (D50w Syringe) 50 ml Q15M PRN IV DECREASED GLUCOSE; Start 08/14/17 at 00:30 Glucagon (Glucagen) 1 mg Q15M PRN IM DECREASED GLUCOSE; Start 08/14/17 at 00: 30 Glucose (Glutose) 15 gm Q15M PRN BUCCAL DECREASED GLUCOSE; Start 08/14/17 at 00:30 Bisacodyl (Dulcolax) 10 mg DAILY PRN PO CONSTIPATION Last administered on 13:58; Admin Dose 10 MG; Start 08/14/17 at 14:00 Losartan Potassium (Cozaar) 100 mg QHS GTB Last administered on 08/19/17 21:12 ; Admin Dose 100 MG; Start 08/14/17 at 21:00 Magnesium Hydroxide (Milk Of Mag) 30 ml DAILY PRN GTB CONSTIPATION Last administered on 08/18/17 08:48; Admin Dose 30 ML; Start 08/14/17 at 14:00 Miscellaneous Information (Pending Santyl Order For Wound Care) This patient valenzuela... PRN PRN XX WOUND CARE; Start 08/14/17 at 14:30 Lansoprazole (Prevacid) 30 mg DAILY@06 GTB Last administered on 08/22/17 05:57 ; Admin Dose 30 MG; Start 08/15/17 at 06:00 Collagenase (Santyl) 1 applic DAILY TOP Last administered on 08/22/17 08:55; Admin Dose 1 APPLIC; Start 08/15/17 at 15:00 Insulin Aspart NOVOLOG *MILD* ALGORI... Q4 SC Last administered on 08/22/17 13 :00; Admin Dose 1 UNIT; Start 08/16/17 at 05:00 Fentanyl (Sublimaze) 100 ml @ 2.5 mls/hr TITRATE IV Last administered on 22:43; Admin Dose 5 MLS/HR; Start 08/16/17 at 16:00 Polyethylene Glycol 17 gm 17 gm DAILY GTB Last administered on 08/22/17 08:53 ; Admin Dose 17 GM; Start 08/18/17 at 12:30 Dextrose (D5W) 1,000 ml @ 20 mls/hr Q24H IV Last administered on 08/20/17 16: 56; Admin Dose 20 MLS/HR; Start 08/20/17 at 16:00 Insulin Detemir (Levemir) 21 unit DAILY SC Last administered on 08/22/17 08:54 ; Admin Dose 21 UNIT; Start 08/21/17 at 09:00 Hydralazine HCl 10 mg 10 mg Q4H PRN IV ELEVATED BLOOD PRESSURE; Start 08/20/17 at 21:30 Levetiracetam (Keppra 500 Mg/ 100ml (Pmx)) 100 ml @ 400 mls/hr Q12 IVPB Last administered on 08/22/17 09:23; Admin Dose 400 MLS/HR; Start 08/20/17 at 21:30 ALKA CASTILLO Aug 22, 2017 17:56
[2017-08-22] MEDS: LOSARTAN 50 MG TAB GTB SCH (21:26)
[2017-08-23] VITALS (38 sets, daily range): BP systolic 128–182; BP diastolic 52–83; PULSE 49–78; RESP 16–30
[2017-08-23] MEDS: INSULIN ASPART [NOVOLOG] 3 ML PEN SC SCH ×6 (01:00→20:19)
[2017-08-23 05:04] LABS: ABNORMAL IP MESSAGE 1; BASOPHILS % 0.6 % (0.0-2.0); EOSINOPHILS # 0.7 10^3/ul (0.0-0.5); EOSINOPHILS % 10.6 % (0.0-7.0); HEMATOCRIT 29.4 % (37.0-47.0); HEMOGLOBIN 8.7 g/dl (12.0-16.0); LYMPHOCYTES # 1.8 10^3/ul (0.8-2.9); LYMPHOCYTES % 25.8 % (15.0-51.0); MEAN CORPUSCULAR HEMOGLOBIN 23.5 pg (29.0-33.0); MEAN CORPUSCULAR HGB CONC 29.6 g/dl (32.0-37.0); MEAN CORPUSCULAR VOLUME 79.5 fl (82.0-101.0); MEAN PLATELET VOLUME 11.3 fl (7.4-10.4); MONOCYTE # 0.6 10^3/ul (0.3-0.9); MONOCYTES % 8.4 % (0.0-11.0); NEUTROPHIL # 3.7 10^3/ul (1.6-7.5); PLATELET COUNT 322 10^3/UL (140-415); RED CELL DISTRIBUTION WIDTH 22.2 % (11.5-14.5); WHITE BLOOD COUNT 6.8 10^3/ul (4.8-10.8)
[2017-08-23] MEDS: LANSOPRAZOLE 30 MG CAP GTB SCH (05:13)
[2017-08-23 05:15] LABS: POSITIVE DIFF @See below
[2017-08-23 05:39] LABS: CALCIUM 8.9 mg/dl (8.4-10.2); CREATININE 0.52 mg/dl (0.44-1.00); POTASSIUM 3.8 mmol/L (3.5-5.1)
--- NOTE | 2017-08-23 07:49 | RADRPT ---
PROCEDURE: XR Chest. CLINICAL INDICATION: Shortness of breath TECHNIQUE: A single AP view of the chest was obtained. COMPARISON: Chest x-ray dated 08/22/2017 FINDINGS: The endotracheal tube tip is at the daksha. There is a left internal jugular central venous catheter with tip near the cavoatrial junction. Lung volumes are low with compressive changes and crowding of the central pulmonary vascular marking s. No focal airspace opacity, pleural effusion or pneumothorax is seen. The cardiomediastinal silho uette is within normal limits for size. Calcifications are seen within the aortic arch. The osseous structures demonstrate senescent changes.. IMPRESSION: 1. Low lung volumes with compressive changes and bibasilar atelectasis. 2. The endotracheal tube tip is at the daksha. Retraction by 2 cm is recommended. Remainder of tube s and lines, as described above. 3. Aortic atherosclerosis. RPTAT: HH .Marie Loza MD, MD Date Time Electronically viewed and signed by .Marie Loza MD, on 08/23/2017 07:48 .G/
[2017-08-23] MEDS: ZINC SULFATE 220 MG CAP GTB SCH (08:48)
[2017-08-23] MEDS: ASCORBIC ACID 500 MG TAB GTB SCH (08:48)
[2017-08-23] MEDS: CLOPIDOGREL 75 MG TAB GTB SCH (08:48)
[2017-08-23] MEDS: POLYETHYLENE GLYCOL 17 GM PACKET GTB SCH (08:48)
--- NOTE | 2017-08-23 09:21 | CONS ---
Date/Time of Note Date/Time of Note DATE: 08/23/17 TIME: 09:20 Consult Date/Type/Reason Admit Date/Time Aug 13, 2017 at 22:40 Initial Consult Date 08/14/17 Type of Consultation: Pulmonary Subjective Tolerated to a CPAP trial yesterday. Extubation was held pending arrival of family to decide reintubation status. Objective Vital Signs Date Time Temp Pulse Resp B/P Pulse Ox O2 Delivery O2 Flow Rate FiO2 08/23/17 08:00 69 08/23/17 05:11 16 100 30 08/23/17 05:00 98.6 149/70 Mechanical Ventilator Intake and Output 08/22/17 08/22/17 08/23/17 15:00 23:00 07:00 Intake Total 500 ml 550 ml 400 ml Output Total 425 ml 415 ml 215 ml Balance 75 ml 135 ml 185 ml Exam GENERAL: Elderly appearing lady on mechanical ventilation appears comfortable at rest. VITAL SIGNS: per chart NECK: Supple. No JVD or lymphadenopathy. CARDIAC EXAM: S1, S2. No added sounds or murmurs. CHEST: clear bilaterally, No added sounds, rales or wheezes ABDOMEN: Soft, nontender. No guarding or rebound. EXTREMITIES: No cyanosis, clubbing, edema +1 NEUROLOGIC: Generalized weakness. Results/Medications Result Diagram: 08/23/17 0442 08/23/17 0442 Results 24 hrs Laboratory Tests Test 08/22/17 13:31 08/22/17 14:24 08/22/17 16:23 08/22/17 21:24 Blood Gas Specimen Source Blood arterial Arterial Blood Date Drawn 08/22/2017 1:50:51 PM Arterial Blood pH (Temp corrected) 7.431 Arterial Blood pCO2 (Temp correct) 31.6 L Arterial Blood pO2 (Temp corrected) 110.5 H Arterial Blood HCO3 20.6 L Arterial Blood Base Excess -3.0 Arterial Blood Oxygen Saturation 97.8 Girish Test ACCEPTAB Arterial Blood Gas Puncture Site Right Radial Arterial Blood Carboxyhemoglobin 0.3 Arterial Blood Methemoglobin 0.3 Blood Gas A-a O2 Differential 66.3 H Oxyhemoglobin Percent 97.2 Total Hemoglobin 10.6 L Blood Gas Temperature 37.0 Blood Gas Actual Respiration Rate 28 Blood Gas Modality VENT - CPAP FiO2 30.0 Blood Gas Low PEEP Setting 5.0 Blood Gas Pressure Support 10 Blood Gas Notified Whom JLD Blood Gas Notified Time 08/22/2017 2:07:39 PM Bedside Glucose 144 109 127 Test 08/23/17 02:47 08/23/17 04:42 08/23/17 05:12 Bedside Glucose 128 148 White Blood Count 6.8 Red Blood Count 3.70 L Hemoglobin 8.7 L Hematocrit 29.4 L Mean Corpuscular Volume 79.5 L Mean Corpuscular Hemoglobin 23.5 L Mean Corpuscular Hemoglobin Concent 29.6 L Red Cell Distribution Width 22.2 H Platelet Count 322 Mean Platelet Volume 11.3 H Neutrophils % 54.0 Lymphocytes % 25.8 Monocytes % 8.4 Eosinophils % 10.6 H Basophils % 0.6 Nucleated Red Blood Cells % 0.0 Neutrophils # 3.7 Lymphocytes # 1.8 Monocytes # 0.6 Eosinophils # 0.7 H Basophils # 0.0 Nucleated Red Blood Cells # 0.0 Sodium Level 147 H Potassium Level 3.8 Chloride Level 114 H Carbon Dioxide Level 21 Anion Gap 16 Blood Urea Nitrogen 14 Creatinine 0.52 Glucose Level 143 Calcium Level 8.9 Medications Current Medications Ondansetron HCl (Zofran Inj) 4 mg Q6H PRN IV NAUSEA AND/OR VOMITING; Start at 23:00 Acetaminophen (Tylenol Supp) 650 mg Q4H PRN MT PAIN LEVEL 1-3 OR FEVER Last administered on 08/14/17 05:38; Admin Dose 650 MG; Start 08/13/17 at 23:00 Morphine Sulfate (morphine) 2 mg Q4H PRN IV PAIN LEVEL 7-10 Last administered on 08/19/17 02:16; Admin Dose 2 MG; Start 08/13/17 at 23:00 Ascorbic Acid (Vitamin C) 500 mg DAILY GTB Last administered on 08/23/17 08:48 ; Admin Dose 500 MG; Start 08/14/17 at 09:00 Clopidogrel Bisulfate (plaVIX) 75 mg DAILY GTB Last administered on 08/23/17 08:48; Admin Dose 75 MG; Start 08/14/17 at 09:00 Zinc Sulfate (Zinc Sulfate) 220 mg DAILY GTB Last administered on 08/23/17 08: 48; Admin Dose 220 MG; Start 08/14/17 at 09:00 Miscellaneous Information 1 ea NOTE XX ; Start 08/14/17 at 00:30 Glucose (Glutose) 15 gm Q15M PRN PO DECREASED GLUCOSE; Start 08/14/17 at 00:30 Glucose (Glutose) 22.5 gm Q15M PRN PO DECREASED GLUCOSE; Start 08/14/17 at 00: 30 Dextrose (D50w Syringe) 25 ml Q15M PRN IV DECREASED GLUCOSE; Start 08/14/17 at 00:30 Dextrose (D50w Syringe) 50 ml Q15M PRN IV DECREASED GLUCOSE; Start 08/14/17 at 00:30 Glucagon (Glucagen) 1 mg Q15M PRN IM DECREASED GLUCOSE; Start 08/14/17 at 00: 30 Glucose (Glutose) 15 gm Q15M PRN BUCCAL DECREASED GLUCOSE; Start 08/14/17 at 00:30 Bisacodyl (Dulcolax) 10 mg DAILY PRN PO CONSTIPATION Last administered on 13:58; Admin Dose 10 MG; Start 08/14/17 at 14:00 Losartan Potassium (Cozaar) 100 mg QHS GTB Last administered on 08/22/17 21:26 ; Admin Dose 100 MG; Start 08/14/17 at 21:00 Magnesium Hydroxide (Milk Of Mag) 30 ml DAILY PRN GTB CONSTIPATION Last administered on 08/18/17 08:48; Admin Dose 30 ML; Start 08/14/17 at 14:00 Miscellaneous Information (Pending Santyl Order For Wound Care) This patient valenzuela... PRN PRN XX WOUND CARE; Start 08/14/17 at 14:30 Lansoprazole (Prevacid) 30 mg DAILY@06 GTB Last administered on 08/23/17 05:13 ; Admin Dose 30 MG; Start 08/15/17 at 06:00 Collagenase (Santyl) 1 applic DAILY TOP Last administered on 08/22/17 08:55; Admin Dose 1 APPLIC; Start 08/15/17 at 15:00 Insulin Aspart NOVOLOG *MILD* ALGORI... Q4 SC Last administered on 08/23/17 05 :15; Admin Dose 1 UNIT; Start 08/16/17 at 05:00 Fentanyl (Sublimaze) 100 ml @ 2.5 mls/hr TITRATE IV Last administered on 22:43; Admin Dose 5 MLS/HR; Start 08/16/17 at 16:00 Polyethylene Glycol (Miralax) 17 gm DAILY GTB Last administered on 08/23/17 08 :48; Admin Dose 17 GM; Start 08/18/17 at 12:30 Insulin Detemir (Levemir) 21 unit DAILY SC Last administered on 08/22/17 08:54 ; Admin Dose 21 UNIT; Start 08/21/17 at 09:00 Hydralazine HCl 10 mg 10 mg Q4H PRN IV ELEVATED BLOOD PRESSURE; Start 08/20/17 at 21:30 Levetiracetam (Keppra 500 Mg/ 100ml (Pmx)) 100 ml @ 400 mls/hr Q12 IVPB Last administered on 08/22/17 21:26; Admin Dose 400 MLS/HR; Start 08/20/17 at 21:30 Assessment/Plan Chief Complaint/Hosp Course IMP: 1. Hypoxemic respiratory failure, likely secondary to alveolar hypoventilation and HCAP 2. History of CVA with advanced dementia. 3. G-Tube Malfxn 4. Anemia RECS: 1. Vent support for now--> repeat CPAP trial. 2. Family arriving from out of town today. We will discuss goals of care and reintubation CODE STATUS. 3. Broad-spectrum Abx 4. Monitor H&H 5. GI recommendations. Tube feeding as tolerated. Critical care time 40 minutes Problems: CON[facility]DEZ [facility], [facility] Aug 23, 2017 09:21
[2017-08-23] MEDS: LEVETIRACETAM 500 MG (PMX) 100 ML IVPB SCH ×2 (09:42→20:19)
[2017-08-23] MEDS: COLLAGENASE 30 GM TUBE TOP SCH (09:43)
[2017-08-23] MEDS: INSULIN DETEMIR [LEVEMIR] 3ML CART SC SCH (09:47)
--- NOTE | 2017-08-23 09:58 | PN ---
Date/Time of Note Date/Time of Note DATE: 08/23/17 TIME: 09:55 Assessment/Plan VTE Prophylaxis VTE Prophylaxis Intervention: SCD's Lines/Catheters IV Catheter Type (from Nrs): Central Line Central line still needed: Yes Urinary Cath still in place: Yes Reason Cath still needed: urinary retention Assessment/Plan Chief Complaint/Hosp Course Assessment/Plan: 71 yo F with pmhx chronic encephalopathy and dysphagia 2/2 old CVA with chronic g tube admitted for sepsis (tachycardia/fever) possibly 2/2 healthcare associated aspiration pneumonia with ESBL Klebsiella. Now with g tube malfunctioning. 1. Hypoxemic respiratory failure - likely secondary to alveolar hypoventilation and HCAP -treated with antibiotics earlier, still intubated. Appears to have resolved now. -Continue vent support for now--> will likely consider again CPAP/PS in am possibly again depending on final decisions from family meeting. -Follow-up pulmonary recommendations - Continue palliative care discussions with family regarding plans to not re- intubate should she pass weaning trial -also to consider tracheostomy versus no tracheostomy. Family meeting scheduled for today (not able to be performed yesterday apparently). Follow-up recommendations from this meeting. Patient with apparent underlying dementia. 2. History of CVA with advanced dementia -Monitor, cont home BP and pain meds 3. G-Tube Malfxn -GI consult appreciated, s/p G-tube fixation 2 days ago - monitor for now, continue tube feeds as tolerated, follow-up GI recommendations 4. Anemia -hemoglobin stable - Monitor H&H 5. DM -A1c equals 9.0 -sugars in the high normal range the last 1-2 days - Continue sliding scale and Levemir Critical care time spent on patient care today equals 40 minutes. Problems: Subjective 24 Hr Interval Summary Free Text/Dictation Still intubated, tolerating G-tube feeds. Exam/Review of Systems Vital Signs Vitals Vital Signs Date Time Temp Pulse Resp B/P Pulse Ox O2 Delivery O2 Flow Rate FiO2 08/23/17 08:00 69 08/23/17 05:11 16 100 30 08/23/17 05:00 98.6 149/70 Mechanical Ventilator Intake and Output 08/22/17 08/22/17 08/23/17 15:00 23:00 07:00 Intake Total 500 ml 550 ml 400 ml Output Total 425 ml 415 ml 215 ml Balance 75 ml 135 ml 185 ml Exam Gen: Lying in bed, intubated, but opens eyes HEENT: Neck supple; no JVD; no LAD; + et tube Neck: supple CV: RRR, S1 and S2 Res: Clear with occ rhonchi ABD: Soft, NT, + BS, + G-tube EXT: No LE edema B/L Results Result Diagram: 08/23/17 0442 08/23/17 0442 Results 24 hrs Laboratory Tests Test 08/22/17 13:31 08/22/17 14:24 08/22/17 16:23 08/22/17 21:24 Blood Gas Specimen Source Blood arterial Arterial Blood Date Drawn 08/22/2017 1:50:51 PM Arterial Blood pH (Temp corrected) 7.431 Arterial Blood pCO2 (Temp correct) 31.6 L Arterial Blood pO2 (Temp corrected) 110.5 H Arterial Blood HCO3 20.6 L Arterial Blood Base Excess -3.0 Arterial Blood Oxygen Saturation 97.8 Girish Test ACCEPTAB Arterial Blood Gas Puncture Site Right Radial Arterial Blood Carboxyhemoglobin 0.3 Arterial Blood Methemoglobin 0.3 Blood Gas A-a O2 Differential 66.3 H Oxyhemoglobin Percent 97.2 Total Hemoglobin 10.6 L Blood Gas Temperature 37.0 Blood Gas Actual Respiration Rate 28 Blood Gas Modality VENT - CPAP FiO2 30.0 Blood Gas Low PEEP Setting 5.0 Blood Gas Pressure Support 10 Blood Gas Notified Whom JLD Blood Gas Notified Time 08/22/2017 2:07:39 PM Bedside Glucose 144 109 127 Test 08/23/17 02:47 08/23/17 04:42 08/23/17 05:12 08/23/17 09:45 Bedside Glucose 128 148 129 White Blood Count 6.8 Red Blood Count 3.70 L Hemoglobin 8.7 L Hematocrit 29.4 L Mean Corpuscular Volume 79.5 L Mean Corpuscular Hemoglobin 23.5 L Mean Corpuscular Hemoglobin Concent 29.6 L Red Cell Distribution Width 22.2 H Platelet Count 322 Mean Platelet Volume 11.3 H Neutrophils % 54.0 Lymphocytes % 25.8 Monocytes % 8.4 Eosinophils % 10.6 H Basophils % 0.6 Nucleated Red Blood Cells % 0.0 Neutrophils # 3.7 Lymphocytes # 1.8 Monocytes # 0.6 Eosinophils # 0.7 H Basophils # 0.0 Nucleated Red Blood Cells # 0.0 Sodium Level 147 H Potassium Level 3.8 Chloride Level 114 H Carbon Dioxide Level 21 Anion Gap 16 Blood Urea Nitrogen 14 Creatinine 0.52 Glucose Level 143 Calcium Level 8.9 Medications Medications Current Medications Ondansetron HCl (Zofran Inj) 4 mg Q6H PRN IV NAUSEA AND/OR VOMITING; Start at 23:00 Acetaminophen (Tylenol Supp) 650 mg Q4H PRN MT PAIN LEVEL 1-3 OR FEVER Last administered on 08/14/17 05:38; Admin Dose 650 MG; Start 08/13/17 at 23:00 Morphine Sulfate (morphine) 2 mg Q4H PRN IV PAIN LEVEL 7-10 Last administered on 08/19/17 02:16; Admin Dose 2 MG; Start 08/13/17 at 23:00 Ascorbic Acid (Vitamin C) 500 mg DAILY GTB Last administered on 08/23/17 08:48 ; Admin Dose 500 MG; Start 08/14/17 at 09:00 Clopidogrel Bisulfate (plaVIX) 75 mg DAILY GTB Last administered on 08/23/17 08:48; Admin Dose 75 MG; Start 08/14/17 at 09:00 Zinc Sulfate (Zinc Sulfate) 220 mg DAILY GTB Last administered on 08/23/17 08: 48; Admin Dose 220 MG; Start 08/14/17 at 09:00 Miscellaneous Information 1 ea NOTE XX ; Start 08/14/17 at 00:30 Glucose (Glutose) 15 gm Q15M PRN PO DECREASED GLUCOSE; Start 08/14/17 at 00:30 Glucose (Glutose) 22.5 gm Q15M PRN PO DECREASED GLUCOSE; Start 08/14/17 at 00: 30 Dextrose (D50w Syringe) 25 ml Q15M PRN IV DECREASED GLUCOSE; Start 08/14/17 at 00:30 Dextrose (D50w Syringe) 50 ml Q15M PRN IV DECREASED GLUCOSE; Start 08/14/17 at 00:30 Glucagon (Glucagen) 1 mg Q15M PRN IM DECREASED GLUCOSE; Start 08/14/17 at 00: 30 Glucose (Glutose) 15 gm Q15M PRN BUCCAL DECREASED GLUCOSE; Start 08/14/17 at 00:30 Bisacodyl (Dulcolax) 10 mg DAILY PRN PO CONSTIPATION Last administered on 13:58; Admin Dose 10 MG; Start 08/14/17 at 14:00 Losartan Potassium (Cozaar) 100 mg QHS GTB Last administered on 08/22/17 21:26 ; Admin Dose 100 MG; Start 08/14/17 at 21:00 Magnesium Hydroxide (Milk Of Mag) 30 ml DAILY PRN GTB CONSTIPATION Last administered on 08/18/17 08:48; Admin Dose 30 ML; Start 08/14/17 at 14:00 Miscellaneous Information (Pending Santyl Order For Wound Care) This patient valenzuela... PRN PRN XX WOUND CARE; Start 08/14/17 at 14:30 Lansoprazole (Prevacid) 30 mg DAILY@06 GTB Last administered on 08/23/17 05:13 ; Admin Dose 30 MG; Start 08/15/17 at 06:00 Collagenase (Santyl) 1 applic DAILY TOP Last administered on 08/23/17 09:43; Admin Dose 1 APPLIC; Start 08/15/17 at 15:00 Insulin Aspart NOVOLOG *MILD* ALGORI... Q4 SC Last administered on 08/23/17 05 :15; Admin Dose 1 UNIT; Start 08/16/17 at 05:00 Fentanyl (Sublimaze) 100 ml @ 2.5 mls/hr TITRATE IV Last administered on 22:43; Admin Dose 5 MLS/HR; Start 08/16/17 at 16:00 Polyethylene Glycol (Miralax) 17 gm DAILY GTB Last administered on 08/23/17 08 :48; Admin Dose 17 GM; Start 08/18/17 at 12:30 Insulin Detemir (Levemir) 21 unit DAILY SC Last administered on 08/23/17 09:47 ; Admin Dose 21 UNIT; Start 08/21/17 at 09:00 Hydralazine HCl 10 mg 10 mg Q4H PRN IV ELEVATED BLOOD PRESSURE; Start 08/20/17 at 21:30 Levetiracetam (Keppra 500 Mg/ 100ml (Pmx)) 100 ml @ 400 mls/hr Q12 IVPB Last administered on 08/23/17 09:42; Admin Dose 400 MLS/HR; Start 08/20/17 at 21:30 VIKTOR ESPINOZA 8, 2017 09:58
--- NOTE | 2017-08-23 10:51 | CONS ---
Date/Time of Note Date/Time of Note DATE: 08/23/17 TIME: 10:44 Consultation Date/Type/Reason Admit Date/Time Aug 13, 2017 at 22:40 Initial Consult Date 08/14/17 Type of Consultation: pallliative 24 HR Interval Summary Free Text/Dictation Discussed goal of care with daughter her father is the primary decision maker and he insists on trach but contnue current DNR... will get consent signed... Exam/Review of Systems Vital Signs Vitals Vital Signs Date Time Temp Pulse Resp B/P Pulse Ox O2 Delivery O2 Flow Rate FiO2 08/23/17 08:00 69 08/23/17 05:11 16 100 30 08/23/17 05:00 98.6 149/70 Mechanical Ventilator Intake and Output 08/22/17 08/22/17 08/23/17 15:00 23:00 07:00 Intake Total 500 ml 550 ml 400 ml Output Total 425 ml 415 ml 215 ml Balance 75 ml 135 ml 185 ml Results Result Diagram: 08/23/17 0442 08/23/17 0442 Results 24 hrs Laboratory Tests Test 08/22/17 13:31 08/22/17 14:24 08/22/17 16:23 08/22/17 21:24 Blood Gas Specimen Source Blood arterial Arterial Blood Date Drawn 08/22/2017 1:50:51 PM Arterial Blood pH (Temp corrected) 7.431 Arterial Blood pCO2 (Temp correct) 31.6 L Arterial Blood pO2 (Temp corrected) 110.5 H Arterial Blood HCO3 20.6 L Arterial Blood Base Excess -3.0 Arterial Blood Oxygen Saturation 97.8 Girish Test ACCEPTAB Arterial Blood Gas Puncture Site Right Radial Arterial Blood Carboxyhemoglobin 0.3 Arterial Blood Methemoglobin 0.3 Blood Gas A-a O2 Differential 66.3 H Oxyhemoglobin Percent 97.2 Total Hemoglobin 10.6 L Blood Gas Temperature 37.0 Blood Gas Actual Respiration Rate 28 Blood Gas Modality VENT - CPAP FiO2 30.0 Blood Gas Low PEEP Setting 5.0 Blood Gas Pressure Support 10 Blood Gas Notified Whom JLD Blood Gas Notified Time 08/22/2017 2:07:39 PM Bedside Glucose 144 109 127 Test 08/23/17 02:47 08/23/17 04:42 08/23/17 05:12 08/23/17 09:45 Bedside Glucose 128 148 129 White Blood Count 6.8 Red Blood Count 3.70 L Hemoglobin 8.7 L Hematocrit 29.4 L Mean Corpuscular Volume 79.5 L Mean Corpuscular Hemoglobin 23.5 L Mean Corpuscular Hemoglobin Concent 29.6 L Red Cell Distribution Width 22.2 H Platelet Count 322 Mean Platelet Volume 11.3 H Neutrophils % 54.0 Lymphocytes % 25.8 Monocytes % 8.4 Eosinophils % 10.6 H Basophils % 0.6 Nucleated Red Blood Cells % 0.0 Neutrophils # 3.7 Lymphocytes # 1.8 Monocytes # 0.6 Eosinophils # 0.7 H Basophils # 0.0 Nucleated Red Blood Cells # 0.0 Sodium Level 147 H Potassium Level 3.8 Chloride Level 114 H Carbon Dioxide Level 21 Anion Gap 16 Blood Urea Nitrogen 14 Creatinine 0.52 Glucose Level 143 Calcium Level 8.9 Medications Medications Current Medications Ondansetron HCl (Zofran Inj) 4 mg Q6H PRN IV NAUSEA AND/OR VOMITING; Start at 23:00 Acetaminophen (Tylenol Supp) 650 mg Q4H PRN [place] PAIN LEVEL 1-3 OR FEVER Last administered on 08/14/17 05:38; Admin Dose 650 MG; Start 08/13/17 at 23:00 Morphine Sulfate (morphine) 2 mg Q4H PRN IV PAIN LEVEL 7-10 Last administered on 08/19/17 02:16; Admin Dose 2 MG; Start 08/13/17 at 23:00 Ascorbic Acid (Vitamin C) 500 mg DAILY GTB Last administered on 08/23/17 08:48 ; Admin Dose 500 MG; Start 08/14/17 at 09:00 Clopidogrel Bisulfate (plaVIX) 75 mg DAILY GTB Last administered on 08/23/17 08:48; Admin Dose 75 MG; Start 08/14/17 at 09:00 Zinc Sulfate (Zinc Sulfate) 220 mg DAILY GTB Last administered on 08/23/17 08: 48; Admin Dose 220 MG; Start 08/14/17 at 09:00 Miscellaneous Information 1 ea NOTE XX ; Start 08/14/17 at 00:30 Glucose (Glutose) 15 gm Q15M PRN PO DECREASED GLUCOSE; Start 08/14/17 at 00:30 Glucose (Glutose) 22.5 gm Q15M PRN PO DECREASED GLUCOSE; Start 08/14/17 at 00: 30 Dextrose (D50w Syringe) 25 ml Q15M PRN IV DECREASED GLUCOSE; Start 08/14/17 at 00:30 Dextrose (D50w Syringe) 50 ml Q15M PRN IV DECREASED GLUCOSE; Start 08/14/17 at 00:30 Glucagon (Glucagen) 1 mg Q15M PRN IM DECREASED GLUCOSE; Start 08/14/17 at 00: 30 Glucose (Glutose) 15 gm Q15M PRN BUCCAL DECREASED GLUCOSE; Start 08/14/17 at 00:30 Bisacodyl (Dulcolax) 10 mg DAILY PRN PO CONSTIPATION Last administered on 13:58; Admin Dose 10 MG; Start 08/14/17 at 14:00 Losartan Potassium (Cozaar) 100 mg QHS GTB Last administered on 08/22/17 21:26 ; Admin Dose 100 MG; Start 08/14/17 at 21:00 Magnesium Hydroxide (Milk Of Mag) 30 ml DAILY PRN GTB CONSTIPATION Last administered on 08/18/17 08:48; Admin Dose 30 ML; Start 08/14/17 at 14:00 Miscellaneous Information (Pending Santyl Order For Wound Care) This patient valenzuela... PRN PRN XX WOUND CARE; Start 08/14/17 at 14:30 Lansoprazole (Prevacid) 30 mg DAILY@06 GTB Last administered on 08/23/17 05:13 ; Admin Dose 30 MG; Start 08/15/17 at 06:00 Collagenase (Santyl) 1 applic DAILY TOP Last administered on 08/23/17 09:43; Admin Dose 1 APPLIC; Start 08/15/17 at 15:00 Insulin Aspart NOVOLOG *MILD* ALGORI... Q4 SC Last administered on 08/23/17 05 :15; Admin Dose 1 UNIT; Start 08/16/17 at 05:00 Fentanyl (Sublimaze) 100 ml @ 2.5 mls/hr TITRATE IV Last administered on 22:43; Admin Dose 5 MLS/HR; Start 08/16/17 at 16:00 Polyethylene Glycol (Miralax) 17 gm DAILY GTB Last administered on 08/23/17 08 :48; Admin Dose 17 GM; Start 08/18/17 at 12:30 Insulin Detemir (Levemir) 21 unit DAILY SC Last administered on 08/23/17 09:47 ; Admin Dose 21 UNIT; Start 08/21/17 at 09:00 Hydralazine HCl 10 mg 10 mg Q4H PRN IV ELEVATED BLOOD PRESSURE; Start 08/20/17 at 21:30 Levetiracetam (Keppra 500 Mg/ 100ml (Pmx)) 100 ml @ 400 mls/hr Q12 IVPB Last administered on 08/23/17 09:42; Admin Dose 400 MLS/HR; Start 08/20/17 at 21:30 PARMJIT AYALA Aug 23, 2017 10:51
[2017-08-23] MEDS: LOSARTAN 50 MG TAB GTB SCH (20:18)
[2017-08-24] VITALS (35 sets, daily range): BP systolic 92–183; BP diastolic 40–74; PULSE 60–98; RESP 15–30
[2017-08-24] MEDS: INSULIN ASPART [NOVOLOG] 3 ML PEN SC SCH ×6 (00:31→21:00)
[2017-08-24] MEDS: hydrALAzine 20 MG INJ IV PRN ×3 (00:32→14:06)
[2017-08-24] MEDS: LANSOPRAZOLE 30 MG CAP GTB SCH (04:57)
[2017-08-24 05:22] LABS: ABNORMAL IP MESSAGE 1; BASOPHIL # 0.1 10^3/ul (0.0-0.1); BASOPHILS % 0.7 % (0.0-2.0); EOSINOPHILS # 0.5 10^3/ul (0.0-0.5); EOSINOPHILS % 7.4 % (0.0-7.0); HEMATOCRIT 31.5 % (37.0-47.0); HEMOGLOBIN 9.5 g/dl (12.0-16.0); LYMPHOCYTES # 1.8 10^3/ul (0.8-2.9); MEAN CORPUSCULAR HEMOGLOBIN 23.8 pg (29.0-33.0); MEAN CORPUSCULAR HGB CONC 30.2 g/dl (32.0-37.0); MEAN CORPUSCULAR VOLUME 78.9 fl (82.0-101.0); MEAN PLATELET VOLUME 10.8 fl (7.4-10.4); MONOCYTE # 0.5 10^3/ul (0.3-0.9); NEUTROPHIL # 4.3 10^3/ul (1.6-7.5); NEUTROPHILS % 59.2 % (39.0-77.0); PLATELET COUNT 348 10^3/UL (140-415); RED BLOOD COUNT 3.99 10^6/ul (4.20-5.40); RED CELL DISTRIBUTION WIDTH 22.3 % (11.5-14.5); WHITE BLOOD COUNT 7.3 10^3/ul (4.8-10.8)
[2017-08-24 05:33] LABS: POSITIVE DIFF @See below
[2017-08-24 05:43] LABS: CALCIUM 9.3 mg/dl (8.4-10.2); CREATININE 0.5 mg/dl (0.44-1.00); POTASSIUM 3.3 mmol/L (3.5-5.1)
[2017-08-24] MEDS: POLYETHYLENE GLYCOL 17 GM PACKET GTB SCH (08:42)
[2017-08-24] MEDS: ZINC SULFATE 220 MG CAP GTB SCH (08:42)
[2017-08-24] MEDS: CLOPIDOGREL 75 MG TAB GTB SCH (08:42)
[2017-08-24] MEDS: LEVETIRACETAM 500 MG (PMX) 100 ML IVPB SCH ×2 (08:42→21:15)
[2017-08-24] MEDS: ASCORBIC ACID 500 MG TAB GTB SCH (08:42)
[2017-08-24] MEDS: INSULIN DETEMIR [LEVEMIR] 3ML CART SC SCH (08:55)
[2017-08-24] MEDS: COLLAGENASE 30 GM TUBE TOP SCH (08:57)
--- NOTE | 2017-08-24 09:19 | CONS ---
Date/Time of Note Date/Time of Note DATE: 08/24/17 TIME: 09:19 Consult Date/Type/Reason Admit Date/Time Aug 13, 2017 at 22:40 Initial Consult Date 08/14/17 Type of Consultation: Pulmonary Subjective Family conference yesterday. Family wished to continue all measures including tracheostomy if needed. Objective Vital Signs Date Time Temp Pulse Resp B/P Pulse Ox O2 Delivery O2 Flow Rate FiO2 08/24/17 08:00 98.7 63 16 143/60 99 Mechanical Ventilator 08/24/17 08:00 30 Intake and Output 08/23/17 08/23/17 08/24/17 15:00 23:00 07:00 Intake Total 840 ml 380 ml 340 ml Output Total 810 ml 265 ml 195 ml Balance 30 ml 115 ml 145 ml Exam GENERAL: Elderly appearing lady on mechanical ventilation appears comfortable at rest. VITAL SIGNS: per chart NECK: Supple. No JVD or lymphadenopathy. CARDIAC EXAM: S1, S2. No added sounds or murmurs. CHEST: clear bilaterally, No added sounds, rales or wheezes ABDOMEN: Soft, nontender. No guarding or rebound. EXTREMITIES: No cyanosis, clubbing, edema +1 NEUROLOGIC: Generalized weakness. Results/Medications Result Diagram: 08/24/17 0500 08/24/17 0500 Results 24 hrs Laboratory Tests Test 08/23/17 09:45 08/23/17 13:03 08/23/17 16:45 08/23/17 20:19 Bedside Glucose 129 176 126 125 Test 08/24/17 00:30 08/24/17 04:50 08/24/17 05:00 Bedside Glucose 96 128 White Blood Count 7.3 Red Blood Count 3.99 L Hemoglobin 9.5 L Hematocrit 31.5 L Mean Corpuscular Volume 78.9 L Mean Corpuscular Hemoglobin 23.8 L Mean Corpuscular Hemoglobin Concent 30.2 L Red Cell Distribution Width 22.3 H Platelet Count 348 Mean Platelet Volume 10.8 H Neutrophils % 59.2 Lymphocytes % 25.0 Monocytes % 7.0 Eosinophils % 7.4 H Basophils % 0.7 Nucleated Red Blood Cells % 0.0 Neutrophils # 4.3 Lymphocytes # 1.8 Monocytes # 0.5 Eosinophils # 0.5 Basophils # 0.1 Nucleated Red Blood Cells # 0.0 Sodium Level 145 H Potassium Level 3.3 L Chloride Level 111 H Carbon Dioxide Level 23 Anion Gap 14 Blood Urea Nitrogen 14 Creatinine 0.50 Glucose Level 131 Calcium Level 9.3 Medications Current Medications Ondansetron HCl (Zofran Inj) 4 mg Q6H PRN IV NAUSEA AND/OR VOMITING; Start at 23:00 Acetaminophen (Tylenol Supp) 650 mg Q4H PRN [place] PAIN LEVEL 1-3 OR FEVER Last administered on 08/14/17 05:38; Admin Dose 650 MG; Start 08/13/17 at 23:00 Morphine Sulfate (morphine) 2 mg Q4H PRN IV PAIN LEVEL 7-10 Last administered on 08/19/17 02:16; Admin Dose 2 MG; Start 08/13/17 at 23:00 Ascorbic Acid (Vitamin C) 500 mg DAILY GTB Last administered on 08/24/17 08:42 ; Admin Dose 500 MG; Start 08/14/17 at 09:00 Clopidogrel Bisulfate (plaVIX) 75 mg DAILY GTB Last administered on 08/24/17 08:42; Admin Dose 75 MG; Start 08/14/17 at 09:00 Zinc Sulfate (Zinc Sulfate) 220 mg DAILY GTB Last administered on 08/24/17 08: 42; Admin Dose 220 MG; Start 08/14/17 at 09:00 Miscellaneous Information 1 ea NOTE XX ; Start 08/14/17 at 00:30 Glucose (Glutose) 15 gm Q15M PRN PO DECREASED GLUCOSE; Start 08/14/17 at 00:30 Glucose (Glutose) 22.5 gm Q15M PRN PO DECREASED GLUCOSE; Start 08/14/17 at 00: 30 Dextrose (D50w Syringe) 25 ml Q15M PRN IV DECREASED GLUCOSE; Start 08/14/17 at 00:30 Dextrose (D50w Syringe) 50 ml Q15M PRN IV DECREASED GLUCOSE; Start 08/14/17 at 00:30 Glucagon (Glucagen) 1 mg Q15M PRN IM DECREASED GLUCOSE; Start 08/14/17 at 00: 30 Glucose (Glutose) 15 gm Q15M PRN BUCCAL DECREASED GLUCOSE; Start 08/14/17 at 00:30 Bisacodyl (Dulcolax) 10 mg DAILY PRN PO CONSTIPATION Last administered on 13:58; Admin Dose 10 MG; Start 08/14/17 at 14:00 Losartan Potassium (Cozaar) 100 mg QHS GTB Last administered on 08/23/17 20:18 ; Admin Dose 100 MG; Start 08/14/17 at 21:00 Magnesium Hydroxide (Milk Of Mag) 30 ml DAILY PRN GTB CONSTIPATION Last administered on 08/18/17 08:48; Admin Dose 30 ML; Start 08/14/17 at 14:00 Miscellaneous Information (Pending Santyl Order For Wound Care) This patient valenzuela... PRN PRN XX WOUND CARE; Start 08/14/17 at 14:30 Lansoprazole (Prevacid) 30 mg DAILY@06 GTB Last administered on 08/24/17 04:57 ; Admin Dose 30 MG; Start 08/15/17 at 06:00 Collagenase (Santyl) 1 applic DAILY TOP Last administered on 08/24/17 08:57; Admin Dose 1 APPLIC; Start 08/15/17 at 15:00 Insulin Aspart NOVOLOG *MILD* ALGORI... Q4 SC Last administered on 08/23/17 13 :07; Admin Dose 1 UNIT; Start 08/16/17 at 05:00 Fentanyl (Sublimaze) 100 ml @ 2.5 mls/hr TITRATE IV Last administered on 22:43; Admin Dose 5 MLS/HR; Start 08/16/17 at 16:00 Polyethylene Glycol (Miralax) 17 gm DAILY GTB Last administered on 08/24/17 08 :42; Admin Dose 17 GM; Start 08/18/17 at 12:30 Insulin Detemir (Levemir) 21 unit DAILY SC Last administered on 08/24/17 08:55 ; Admin Dose 21 UNIT; Start 08/21/17 at 09:00 Hydralazine HCl 10 mg 10 mg Q4H PRN IV ELEVATED BLOOD PRESSURE Last administered on 08/24/17 00:32; Admin Dose 10 MG; Start 08/20/17 at 21:30 Levetiracetam (Keppra 500 Mg/ 100ml (Pmx)) 100 ml @ 400 mls/hr Q12 IVPB Last administered on 08/24/17 08:42; Admin Dose 400 MLS/HR; Start 08/20/17 at 21:30 Assessment/Plan Chief Complaint/Hosp Course IMP: 1. Hypoxemic respiratory failure, likely secondary to alveolar hypoventilation and HCAP 2. History of CVA with advanced dementia. 3. G-Tube Malfxn 4. Anemia RECS: 1. Vent support for now--> repeat CPAP trial this morning. Hopefully safely extubate. 2. Palliative care discussion with family. Reintubation and tracheostomy if needed. 3. Broad-spectrum Abx 4. Monitor H&H 5. GI recommendations. Tube feeding as tolerated. Critical care time 40 minutes Problems: CONI FERNANDEZ MD, [facility] Aug 24, 2017 09:19
--- NOTE | 2017-08-24 09:33 | PN ---
Date/Time of Note Date/Time of Note DATE: 08/24/17 TIME: 09:30 Assessment/Plan VTE Prophylaxis VTE Prophylaxis Intervention: SCD's Lines/Catheters IV Catheter Type (from Nrs): Central Line Central line still needed: Yes Urinary Cath still in place: Yes Reason Cath still needed: urinary retention Assessment/Plan Chief Complaint/Hosp Course Assessment/Plan: 71 yo F with pmhx chronic encephalopathy and dysphagia 2/2 old CVA with chronic g tube admitted for sepsis (tachycardia/fever) possibly 2/2 healthcare associated aspiration pneumonia with ESBL Klebsiella. 1. Hypoxemic respiratory failure - likely secondary to alveolar hypoventilation and HCAP -treated with antibiotics earlier, still intubated. Appears to have resolved now. -Continue vent support for now--> for another CPAP/PS trial in am with likely extubation later today. -Follow-up pulmonary recommendations -Patient with apparent underlying dementia. Continue palliative care discussions with family-they met yesterday and family has decided for tracheostomy placement if patient has to be reintubated. 2. History of CVA with advanced dementia -Monitor, cont home BP and pain meds 3. G-Tube Malfxn -GI consult appreciated, s/p G-tube fixation 3 days ago - monitor for now, continue tube feeds as tolerated, follow-up GI recommendations 4. Anemia -hemoglobin stable - Monitor H&H 5. DM -A1c equals 9.0 -sugars more stable now on the last 24 hours - Continue sliding scale and Levemir Critical care time spent on patient care today equals 40 minutes. Problems: Subjective 24 Hr Interval Summary Free Text/Dictation Patient awaiting another CPAP trial for later today with likely extubation later today. No acute events overnight. Having some high blood pressure this morning systolic in the 180s. Exam/Review of Systems Vital Signs Vitals Vital Signs Date Time Temp Pulse Resp B/P Pulse Ox O2 Delivery O2 Flow Rate FiO2 08/24/17 09:16 78 30 100 30 08/24/17 08:00 98.7 143/60 Mechanical Ventilator Intake and Output 08/23/17 08/23/17 08/24/17 15:00 23:00 07:00 Intake Total 840 ml 380 ml 340 ml Output Total 810 ml 265 ml 195 ml Balance 30 ml 115 ml 145 ml Exam Gen: Lying in bed, intubated, but opens eyes HEENT: Neck supple; no JVD; no LAD; + et tube Neck: supple CV: RRR, S1 and S2 Res: Clear with occ rhonchi ABD: Soft, NT, + BS, + G-tube EXT: No LE edema B/L Results Result Diagram: 08/24/17 0500 08/24/17 0500 Results 24 hrs Laboratory Tests Test 08/23/17 09:45 08/23/17 13:03 08/23/17 16:45 08/23/17 20:19 Bedside Glucose 129 176 126 125 Test 08/24/17 00:30 08/24/17 04:50 08/24/17 05:00 08/24/17 08:52 Bedside Glucose 96 128 123 White Blood Count 7.3 Red Blood Count 3.99 L Hemoglobin 9.5 L Hematocrit 31.5 L Mean Corpuscular Volume 78.9 L Mean Corpuscular Hemoglobin 23.8 L Mean Corpuscular Hemoglobin Concent 30.2 L Red Cell Distribution Width 22.3 H Platelet Count 348 Mean Platelet Volume 10.8 H Neutrophils % 59.2 Lymphocytes % 25.0 Monocytes % 7.0 Eosinophils % 7.4 H Basophils % 0.7 Nucleated Red Blood Cells % 0.0 Neutrophils # 4.3 Lymphocytes # 1.8 Monocytes # 0.5 Eosinophils # 0.5 Basophils # 0.1 Nucleated Red Blood Cells # 0.0 Sodium Level 145 H Potassium Level 3.3 L Chloride Level 111 H Carbon Dioxide Level 23 Anion Gap 14 Blood Urea Nitrogen 14 Creatinine 0.50 Glucose Level 131 Calcium Level 9.3 Medications Medications Current Medications Ondansetron HCl (Zofran Inj) 4 mg Q6H PRN IV NAUSEA AND/OR VOMITING; Start at 23:00 Acetaminophen (Tylenol Supp) 650 mg Q4H PRN [place] PAIN LEVEL 1-3 OR FEVER Last administered on 08/14/17 05:38; Admin Dose 650 MG; Start 08/13/17 at 23:00 Morphine Sulfate (morphine) 2 mg Q4H PRN IV PAIN LEVEL 7-10 Last administered on 08/19/17 02:16; Admin Dose 2 MG; Start 08/13/17 at 23:00 Ascorbic Acid (Vitamin C) 500 mg DAILY GTB Last administered on 08/24/17 08:42 ; Admin Dose 500 MG; Start 08/14/17 at 09:00 Clopidogrel Bisulfate (plaVIX) 75 mg DAILY GTB Last administered on 08/24/17 08:42; Admin Dose 75 MG; Start 08/14/17 at 09:00 Zinc Sulfate (Zinc Sulfate) 220 mg DAILY GTB Last administered on 08/24/17 08: 42; Admin Dose 220 MG; Start 08/14/17 at 09:00 Miscellaneous Information 1 ea NOTE XX ; Start 08/14/17 at 00:30 Glucose (Glutose) 15 gm Q15M PRN PO DECREASED GLUCOSE; Start 08/14/17 at 00:30 Glucose (Glutose) 22.5 gm Q15M PRN PO DECREASED GLUCOSE; Start 08/14/17 at 00: 30 Dextrose (D50w Syringe) 25 ml Q15M PRN IV DECREASED GLUCOSE; Start 08/14/17 at 00:30 Dextrose (D50w Syringe) 50 ml Q15M PRN IV DECREASED GLUCOSE; Start 08/14/17 at 00:30 Glucagon (Glucagen) 1 mg Q15M PRN IM DECREASED GLUCOSE; Start 08/14/17 at 00: 30 Glucose (Glutose) 15 gm Q15M PRN BUCCAL DECREASED GLUCOSE; Start 08/14/17 at 00:30 Bisacodyl (Dulcolax) 10 mg DAILY PRN PO CONSTIPATION Last administered on 13:58; Admin Dose 10 MG; Start 08/14/17 at 14:00 Losartan Potassium (Cozaar) 100 mg QHS GTB Last administered on 08/23/17 20:18 ; Admin Dose 100 MG; Start 08/14/17 at 21:00 Magnesium Hydroxide (Milk Of Mag) 30 ml DAILY PRN GTB CONSTIPATION Last administered on 08/18/17 08:48; Admin Dose 30 ML; Start 08/14/17 at 14:00 Miscellaneous Information (Pending Santyl Order For Wound Care) This patient valenzuela... PRN PRN XX WOUND CARE; Start 08/14/17 at 14:30 Lansoprazole (Prevacid) 30 mg DAILY@06 GTB Last administered on 08/24/17 04:57 ; Admin Dose 30 MG; Start 08/15/17 at 06:00 Collagenase (Santyl) 1 applic DAILY TOP Last administered on 08/24/17 08:57; Admin Dose 1 APPLIC; Start 08/15/17 at 15:00 Insulin Aspart NOVOLOG *MILD* ALGORI... Q4 SC Last administered on 08/23/17 13 :07; Admin Dose 1 UNIT; Start 08/16/17 at 05:00 Fentanyl (Sublimaze) 100 ml @ 2.5 mls/hr TITRATE IV Last administered on 22:43; Admin Dose 5 MLS/HR; Start 08/16/17 at 16:00 Polyethylene Glycol (Miralax) 17 gm DAILY GTB Last administered on 08/24/17 08 :42; Admin Dose 17 GM; Start 08/18/17 at 12:30 Insulin Detemir (Levemir) 21 unit DAILY SC Last administered on 08/24/17 08:55 ; Admin Dose 21 UNIT; Start 08/21/17 at 09:00 Hydralazine HCl 10 mg 10 mg Q4H PRN IV ELEVATED BLOOD PRESSURE Last administered on 08/24/17 00:32; Admin Dose 10 MG; Start 08/20/17 at 21:30 Levetiracetam (Keppra 500 Mg/ 100ml (Pmx)) 100 ml @ 400 mls/hr Q12 IVPB Last administered on 08/24/17 08:42; Admin Dose 400 MLS/HR; Start 08/20/17 at 21:30 VIKTOR ESPINOZA 9, 2017 09:33
[2017-08-24] MEDS: POTASSIUM CHLORIDE 50 ML IVPB PRN ×3 (12:35→16:25)
--- NOTE | 2017-08-24 19:24 | CONS ---
DATE OF ADMISSION: 08/13/2017 DATE OF CONSULTATION: REASON FOR CONSULTATION: Evaluation for tracheostomy. HISTORY OF PRESENT ILLNESS: This is a 71-year-old female with a history of CVA, respiratory failure , prior history of tracheostomy, admitted, intubated, unable to come off the ventilator secondary to respiratory failure and CVA. PAST MEDICAL HISTORY: CVA, hypertension. PAST SURGICAL HISTORY: Tracheostomy. ALLERGIES: NONE. SOCIAL HISTORY: No smoking, drinking or drug use. MEDICATIONS: List reviewed. REVIEW OF SYSTEMS: Unable to be obtained. PHYSICAL EXAMINATION: VITAL SIGNS: Blood pressure is 149/60, pulse is 84, respirations 16, saturations 100% on 30% FIO2. CARDIOVASCULAR: Regular rate and rhythm. LUNGS: Clear. ABDOMEN: Soft. EXTREMITIES: Warm. IMPRESSION: 1. Hypoxic respiratory failure secondary to albuterol hypoventilation. 2. History of cerebrovascular accident. 3. Unable to come off the ventilator. RECOMMENDATIONS: We will proceed with a tracheostomy when consent is available. Discussed with the nursing staff. Dictated By: CHRISTY MEYER/ERENDIRA Conf#: [id number] DID#: [id number]
[2017-08-24] MEDS: LOSARTAN 50 MG TAB GTB SCH (21:15)
[2017-08-25] VITALS (35 sets, daily range): BP systolic 105–150; BP diastolic 47–71; PULSE 63–85; RESP 16
[2017-08-25] MEDS: INSULIN ASPART [NOVOLOG] 3 ML PEN SC SCH ×6 (01:36→20:41)
[2017-08-25 06:00] LABS: ABNORMAL IP MESSAGE 1; BASOPHILS % 0.3 % (0.0-2.0); EOSINOPHILS # 0.4 10^3/ul (0.0-0.5); EOSINOPHILS % 3.7 % (0.0-7.0); HEMATOCRIT 31.8 % (37.0-47.0); HEMOGLOBIN 9.6 g/dl (12.0-16.0); LYMPHOCYTES # 1.6 10^3/ul (0.8-2.9); LYMPHOCYTES % 16.6 % (15.0-51.0); MEAN CORPUSCULAR HEMOGLOBIN 23.9 pg (29.0-33.0); MEAN CORPUSCULAR HGB CONC 30.2 g/dl (32.0-37.0); MEAN CORPUSCULAR VOLUME 79.1 fl (82.0-101.0); MEAN PLATELET VOLUME 11.5 fl (7.4-10.4); MONOCYTE # 0.6 10^3/ul (0.3-0.9); MONOCYTES % 5.7 % (0.0-11.0); NEUTROPHIL # 7.2 10^3/ul (1.6-7.5); NEUTROPHILS % 73.2 % (39.0-77.0); PLATELET COUNT 384 10^3/UL (140-415); RED BLOOD COUNT 4.02 10^6/ul (4.20-5.40); RED CELL DISTRIBUTION WIDTH 22.4 % (11.5-14.5); WHITE BLOOD COUNT 9.8 10^3/ul (4.8-10.8)
[2017-08-25 06:02] LABS: POSITIVE DIFF @See below
[2017-08-25] MEDS: LANSOPRAZOLE 30 MG CAP GTB SCH (06:02)
[2017-08-25 06:34] LABS: CREATININE 0.68 mg/dl (0.44-1.00); POTASSIUM 3.4 mmol/L (3.5-5.1)
[2017-08-25] MEDS: POTASSIUM CHLORIDE 50 ML IVPB PRN ×2 (08:01→09:49)
[2017-08-25] MEDS: POLYETHYLENE GLYCOL 17 GM PACKET GTB SCH (09:00)
[2017-08-25] MEDS ORDERED: DEXTROSE 5% 1,000 ML IV SCH (09:00)
--- NOTE | 2017-08-25 09:03 | PN ---
Date/Time of Note Date/Time of Note DATE: 08/25/17 TIME: 09:00 Assessment/Plan VTE Prophylaxis VTE Prophylaxis Intervention: SCD's Lines/Catheters IV Catheter Type (from Nrs): Central Line Central line still needed: Yes Urinary Cath still in place: Yes Reason Cath still needed: urinary retention Assessment/Plan Chief Complaint/Hosp Course Assessment/Plan: 71 yo F with pmhx chronic encephalopathy and dysphagia 2/2 old CVA with chronic g tube admitted for sepsis (tachycardia/fever) possibly 2/2 healthcare associated aspiration pneumonia with ESBL Klebsiella. 1. Hypoxemic respiratory failure - likely secondary to alveolar hypoventilation and HCAP - treated with antibiotics earlier, still intubated. Appears to have resolved now. -Continue vent support for now--> planning for possible extubation soon -Follow-up pulmonary recommendations -Patient with apparent underlying dementia. Continue palliative care discussions with family-they met yesterday and family has decided for tracheostomy placement. This will be performed once patient is extubated. 2. History of CVA with advanced dementia -Monitor, cont home BP and pain meds 3. G-Tube Malfxn -GI consult appreciated, s/p G-tube fixation 4 days ago - monitor for now, continue tube feeds as tolerated, follow-up GI recommendations 4. Anemia -hemoglobin stable - Monitor H&H 5. DM -A1c equals 9.0 -sugars more stable now - Continue sliding scale and Levemir Critical care time spent on patient care today equals 40 minutes. Problems: Subjective 24 Hr Interval Summary Free Text/Dictation Patient seen by CTS team yesterday. No acute events overnight. Exam/Review of Systems Vital Signs Vitals Vital Signs Date Time Temp Pulse Resp B/P Pulse Ox O2 Delivery O2 Flow Rate FiO2 08/25/17 08:00 99.3 74 16 150/65 100 Mechanical Ventilator 08/25/17 06:00 30 Intake and Output 08/24/17 08/24/17 08/25/17 15:00 23:00 07:00 Intake Total 360 ml 290 ml 320 ml Output Total 300 ml 110 ml 300 ml Balance 60 ml 180 ml 20 ml Exam Gen: Lying in bed, intubated, but opens eyes occasionally HEENT: Neck supple; no JVD; no LAD; + et tube Neck: supple CV: RRR, S1 and S2 Res: Clear with occ rhonchi ABD: Soft, NT, + BS, + G-tube EXT: No LE edema B/L Results Result Diagram: 08/25/17 0430 08/25/17 0430 Results 24 hrs Laboratory Tests Test 08/24/17 13:45 08/24/17 17:28 08/24/17 20:13 08/25/17 01:30 Bedside Glucose 149 119 126 145 Test 08/25/17 04:30 08/25/17 04:43 White Blood Count 9.8 # Red Blood Count 4.02 L Hemoglobin 9.6 L Hematocrit 31.8 L Mean Corpuscular Volume 79.1 L Mean Corpuscular Hemoglobin 23.9 L Mean Corpuscular Hemoglobin Concent 30.2 L Red Cell Distribution Width 22.4 H Platelet Count 384 Mean Platelet Volume 11.5 H Neutrophils % 73.2 Lymphocytes % 16.6 Monocytes % 5.7 Eosinophils % 3.7 Basophils % 0.3 Nucleated Red Blood Cells % 0.0 Neutrophils # 7.2 Lymphocytes # 1.6 Monocytes # 0.6 Eosinophils # 0.4 Basophils # 0.0 Nucleated Red Blood Cells # 0.0 Sodium Level 147 H Potassium Level 3.4 L Chloride Level 112 H Carbon Dioxide Level 23 Anion Gap 15 Blood Urea Nitrogen 14 Creatinine 0.68 Glucose Level 135 Calcium Level 9.0 Bedside Glucose 122 Medications Medications Current Medications Ondansetron HCl (Zofran Inj) 4 mg Q6H PRN IV NAUSEA AND/OR VOMITING Last administered on 08/24/17 14:40; Admin Dose 4 MG; Start 08/13/17 at 23:00 Acetaminophen (Tylenol Supp) 650 mg Q4H PRN [place] PAIN LEVEL 1-3 OR FEVER Last administered on 08/14/17 05:38; Admin Dose 650 MG; Start 08/13/17 at 23:00 Morphine Sulfate (morphine) 2 mg Q4H PRN IV PAIN LEVEL 7-10 Last administered on 08/19/17 02:16; Admin Dose 2 MG; Start 08/13/17 at 23:00 Ascorbic Acid (Vitamin C) 500 mg DAILY GTB Last administered on 08/24/17 08:42 ; Admin Dose 500 MG; Start 08/14/17 at 09:00 Clopidogrel Bisulfate (plaVIX) 75 mg DAILY GTB Last administered on 08/24/17 08:42; Admin Dose 75 MG; Start 08/14/17 at 09:00 Zinc Sulfate (Zinc Sulfate) 220 mg DAILY GTB Last administered on 08/24/17 08: 42; Admin Dose 220 MG; Start 08/14/17 at 09:00 Miscellaneous Information 1 ea NOTE XX ; Start 08/14/17 at 00:30 Glucose (Glutose) 15 gm Q15M PRN PO DECREASED GLUCOSE; Start 08/14/17 at 00:30 Glucose (Glutose) 22.5 gm Q15M PRN PO DECREASED GLUCOSE; Start 08/14/17 at 00: 30 Dextrose (D50w Syringe) 25 ml Q15M PRN IV DECREASED GLUCOSE; Start 08/14/17 at 00:30 Dextrose (D50w Syringe) 50 ml Q15M PRN IV DECREASED GLUCOSE; Start 08/14/17 at 00:30 Glucagon (Glucagen) 1 mg Q15M PRN IM DECREASED GLUCOSE; Start 08/14/17 at 00: 30 Glucose (Glutose) 15 gm Q15M PRN BUCCAL DECREASED GLUCOSE; Start 08/14/17 at 00:30 Bisacodyl (Dulcolax) 10 mg DAILY PRN PO CONSTIPATION Last administered on 13:58; Admin Dose 10 MG; Start 08/14/17 at 14:00 Losartan Potassium (Cozaar) 100 mg QHS GTB Last administered on 08/24/17 21:15 ; Admin Dose 100 MG; Start 08/14/17 at 21:00 Magnesium Hydroxide (Milk Of Mag) 30 ml DAILY PRN GTB CONSTIPATION Last administered on 08/18/17 08:48; Admin Dose 30 ML; Start 08/14/17 at 14:00 Miscellaneous Information (Pending Santyl Order For Wound Care) This patient valenzuela... PRN PRN XX WOUND CARE; Start 08/14/17 at 14:30 Lansoprazole (Prevacid) 30 mg DAILY@06 GTB Last administered on 08/25/17 06: 02; Admin Dose 30 MG; Start 08/15/17 at 06:00 Collagenase (Santyl) 1 applic DAILY TOP Last administered on 08/24/17 08:57; Admin Dose 1 APPLIC; Start 08/15/17 at 15:00 Insulin Aspart NOVOLOG *MILD* ALGORI... Q4 SC Last administered on 08/25/17 01:36; Admin Dose 1 UNIT; Start 08/16/17 at 05:00 Fentanyl (Sublimaze) 100 ml @ 2.5 mls/hr TITRATE IV Last administered on 22:43; Admin Dose 5 MLS/HR; Start 08/16/17 at 16:00 Polyethylene Glycol (Miralax) 17 gm DAILY GTB Last administered on 08/24/17 08 :42; Admin Dose 17 GM; Start 08/18/17 at 12:30 Insulin Detemir (Levemir) 21 unit DAILY SC Last administered on 08/24/17 08:55 ; Admin Dose 21 UNIT; Start 08/21/17 at 09:00 Hydralazine HCl 10 mg 10 mg Q4H PRN IV ELEVATED BLOOD PRESSURE Last administered on 08/24/17 14:06; Admin Dose 10 MG; Start 08/20/17 at 21:30 Levetiracetam (Keppra 500 Mg/ 100ml (Pmx)) 100 ml @ 400 mls/hr Q12 IVPB Last administered on 08/24/17 21:15; Admin Dose 400 MLS/HR; Start 08/20/17 at 21:30 VIKTOR ESPINOZA 10, 2017 09:03
--- NOTE | 2017-08-25 09:32 | CONS ---
Date/Time of Note Date/Time of Note DATE: 08/25/17 TIME: 09:31 Assessment/Plan Assessment/Plan Additional Assessment/Plan Ventilator setting; AC of 16, tidal volume 500, PEEP of 5, 30% FiO2. Assessment and recommendations; 1. Patient admitted with respiratory failure due to severe hypoventilation. 2. Advanced dementia. 3. Currently no evidence of any infective process. Continue current treatment. Patient is scheduled for tracheostomy and G-tube placement. Consultation Date/Type/Reason Admit Date/Time Aug 13, 2017 at 22:40 Initial Consult Date 08/14/17 Type of Consultation: Pulmonary 24 HR Interval Summary Free Text/Dictation Patient's condition remains critical. Remains completely unresponsive. Patient however has remained hemodynamically stable. General exam; elderly woman, orally intubated, unresponsive, currently in no distress. Exam/Review of Systems Vital Signs Vitals Vital Signs Date Time Temp Pulse Resp B/P Pulse Ox O2 Delivery O2 Flow Rate FiO2 08/25/17 08:00 99.3 74 16 150/65 100 Mechanical Ventilator 08/25/17 06:00 30 Intake and Output 08/24/17 08/24/17 08/25/17 15:00 23:00 07:00 Intake Total 360 ml 290 ml 320 ml Output Total 300 ml 110 ml 300 ml Balance 60 ml 180 ml 20 ml Exam HEENT exam; supple neck, no JVD. No lymphadenopathy. Midline trachea. No thyromegaly. Orally intubated. Patient has fair dentition. Chest exam; clear to auscultation. S1-S2 audible, no murmurs. Regular rhythm. Abdomen exam; soft, nondistended. No organomegaly. But was not audible. Extremity exam; no peripheral edema. CUTTER HAND exam; patient remains completely unresponsive. Results Result Diagram: 08/25/170 08/25/17 0430 Results 24 hrs Laboratory Tests Test 08/24/17 13:45 08/24/17 17:28 08/24/17 20:13 08/25/17 01:30 Bedside Glucose 149 119 126 145 Test 08/25/17 04:30 08/25/17 04:43 White Blood Count 9.8 # Red Blood Count 4.02 L Hemoglobin 9.6 L Hematocrit 31.8 L Mean Corpuscular Volume 79.1 L Mean Corpuscular Hemoglobin 23.9 L Mean Corpuscular Hemoglobin Concent 30.2 L Red Cell Distribution Width 22.4 H Platelet Count 384 Mean Platelet Volume 11.5 H Neutrophils % 73.2 Lymphocytes % 16.6 Monocytes % 5.7 Eosinophils % 3.7 Basophils % 0.3 Nucleated Red Blood Cells % 0.0 Neutrophils # 7.2 Lymphocytes # 1.6 Monocytes # 0.6 Eosinophils # 0.4 Basophils # 0.0 Nucleated Red Blood Cells # 0.0 Sodium Level 147 H Potassium Level 3.4 L Chloride Level 112 H Carbon Dioxide Level 23 Anion Gap 15 Blood Urea Nitrogen 14 Creatinine 0.68 Glucose Level 135 Calcium Level 9.0 Bedside Glucose 122 Medications Medications Current Medications Ondansetron HCl (Zofran Inj) 4 mg Q6H PRN IV NAUSEA AND/OR VOMITING Last administered on 08/24/17 14:40; Admin Dose 4 MG; Start 08/13/17 at 23:00 Acetaminophen (Tylenol Supp) 650 mg Q4H PRN [place] PAIN LEVEL 1-3 OR FEVER Last administered on 08/14/17 05:38; Admin Dose 650 MG; Start 08/13/17 at 23:00 Morphine Sulfate (morphine) 2 mg Q4H PRN IV PAIN LEVEL 7-10 Last administered on 08/19/17 02:16; Admin Dose 2 MG; Start 08/13/17 at 23:00 Ascorbic Acid (Vitamin C) 500 mg DAILY GTB Last administered on 08/24/17 08:42 ; Admin Dose 500 MG; Start 08/14/17 at 09:00 Clopidogrel Bisulfate (plaVIX) 75 mg DAILY GTB Last administered on 08/24/17 08:42; Admin Dose 75 MG; Start 08/14/17 at 09:00 Zinc Sulfate (Zinc Sulfate) 220 mg DAILY GTB Last administered on 08/24/17 08: 42; Admin Dose 220 MG; Start 08/14/17 at 09:00 Miscellaneous Information 1 ea NOTE XX ; Start 08/14/17 at 00:30 Glucose (Glutose) 15 gm Q15M PRN PO DECREASED GLUCOSE; Start 08/14/17 at 00:30 Glucose (Glutose) 22.5 gm Q15M PRN PO DECREASED GLUCOSE; Start 08/14/17 at 00: 30 Dextrose (D50w Syringe) 25 ml Q15M PRN IV DECREASED GLUCOSE; Start 08/14/17 at 00:30 Dextrose (D50w Syringe) 50 ml Q15M PRN IV DECREASED GLUCOSE; Start 08/14/17 at 00:30 Glucagon (Glucagen) 1 mg Q15M PRN IM DECREASED GLUCOSE; Start 08/14/17 at 00: 30 Glucose (Glutose) 15 gm Q15M PRN BUCCAL DECREASED GLUCOSE; Start 08/14/17 at 00:30 Bisacodyl (Dulcolax) 10 mg DAILY PRN PO CONSTIPATION Last administered on 13:58; Admin Dose 10 MG; Start 08/14/17 at 14:00 Losartan Potassium (Cozaar) 100 mg QHS GTB Last administered on 08/24/17 21:15 ; Admin Dose 100 MG; Start 08/14/17 at 21:00 Magnesium Hydroxide (Milk Of Mag) 30 ml DAILY PRN GTB CONSTIPATION Last administered on 08/18/17 08:48; Admin Dose 30 ML; Start 08/14/17 at 14:00 Miscellaneous Information (Pending Santyl Order For Wound Care) This patient valenzuela... PRN PRN XX WOUND CARE; Start 08/14/17 at 14:30 Lansoprazole (Prevacid) 30 mg DAILY@06 GTB Last administered on 08/25/17 06: 02; Admin Dose 30 MG; Start 08/15/17 at 06:00 Collagenase (Santyl) 1 applic DAILY TOP Last administered on 08/24/17 08:57; Admin Dose 1 APPLIC; Start 08/15/17 at 15:00 Insulin Aspart NOVOLOG *MILD* ALGORI... Q4 SC Last administered on 08/25/17 01:36; Admin Dose 1 UNIT; Start 08/16/17 at 05:00 Fentanyl (Sublimaze) 100 ml @ 2.5 mls/hr TITRATE IV Last administered on 22:43; Admin Dose 5 MLS/HR; Start 08/16/17 at 16:00 Polyethylene Glycol (Miralax) 17 gm DAILY GTB Last administered on 08/24/17 08 :42; Admin Dose 17 GM; Start 08/18/17 at 12:30 Insulin Detemir (Levemir) 21 unit DAILY SC Last administered on 08/24/17 08:55 ; Admin Dose 21 UNIT; Start 08/21/17 at 09:00 Hydralazine HCl 10 mg 10 mg Q4H PRN IV ELEVATED BLOOD PRESSURE Last administered on 08/24/17 14:06; Admin Dose 10 MG; Start 08/20/17 at 21:30 Levetiracetam 100 ml @ 400 mls/hr Q12 IVPB Last administered on 08/24/17 21: 15; Admin Dose 400 MLS/HR; Start 08/20/17 at 21:30 Dextrose (D5W) 1,000 ml @ 75 mls/hr [id number] IV ; Start 08/25/17 at 09:00; Stop 08/25/17 at 21:00 ADRIANA TOVAR Aug 25, 2017 09:32
[2017-08-25] MEDS: CLOPIDOGREL 75 MG TAB GTB SCH (09:49)
[2017-08-25] MEDS: ASCORBIC ACID 500 MG TAB GTB SCH (09:49)
[2017-08-25] MEDS: ZINC SULFATE 220 MG CAP GTB SCH (09:49)
[2017-08-25] MEDS: LEVETIRACETAM 500 MG (PMX) 100 ML IVPB SCH ×2 (09:49→20:43)
[2017-08-25] MEDS: INSULIN DETEMIR [LEVEMIR] 3ML CART SC SCH (09:50)
[2017-08-25] MEDS: COLLAGENASE 30 GM TUBE TOP SCH (09:55)
--- NOTE | 2017-08-25 16:22 | PN ---
Date/Time of Note Date/Time of Note DATE: 08/25/17 TIME: 16:21 Assessment/Plan Lines/Catheters IV Catheter Type (from Nrsg): Central Line Lane in Place (from Nrsg): Yes Assessment/Plan Chief Complaint/Hosp Course IMPRESSION: 1. Hypoxic respiratory failure secondary to albuterol hypoventilation. 2. History of cerebrovascular accident. 3. Unable to come off the ventilator. RECOMMENDATIONS: We will proceed with a tracheostomy when consent is available. Discussed with the nursing staff. Problems: Subjective 24 Hr Interval Summary Constitutional: improved Pain Control: mild Exam/Review of Systems Vital Signs Vitals Vital Signs Date Time Temp Pulse Resp B/P Pulse Ox O2 Delivery O2 Flow Rate FiO2 08/25/17 14:00 77 16 134/51 96 Mechanical Ventilator 08/25/17 12:00 99.0 08/25/17 11:20 30 Intake and Output 08/24/17 08/24/17 08/25/17 15:00 23:00 07:00 Intake Total 360 ml 290 ml 360 ml Output Total 300 ml 110 ml 330 ml Balance 60 ml 180 ml 30 ml Exam ENMT: mucosa pink and moist, nl external ears & nose, nl lips & teeth, nl nasal mucosa & septum Neck: non-tender, supple Respiratory: clear to auscultation, normal air movement Results Result Diagram: 08/25/170 08/25/17429 CHRISTY PIERCE MD Aug 25, 2017 16:22
[2017-08-25] MEDS: LOSARTAN 50 MG TAB GTB SCH (20:44)
[2017-08-26] VITALS (41 sets, daily range): BP systolic 112–174; BP diastolic 47–74; PULSE 53–81; RESP 15–26
[2017-08-26] MEDS: INSULIN ASPART [NOVOLOG] 3 ML PEN SC SCH ×6 (00:37→20:30)
[2017-08-26 04:50] LABS: ABNORMAL IP MESSAGE 1; BASOPHIL # 0.1 10^3/ul (0.0-0.1); BASOPHILS % 0.6 % (0.0-2.0); EOSINOPHILS # 0.8 10^3/ul (0.0-0.5); EOSINOPHILS % 9.5 % (0.0-7.0); HEMATOCRIT 30.8 % (37.0-47.0); HEMOGLOBIN 9.2 g/dl (12.0-16.0); LYMPHOCYTES # 1.9 10^3/ul (0.8-2.9); LYMPHOCYTES % 23.8 % (15.0-51.0); MEAN CORPUSCULAR HEMOGLOBIN 23.8 pg (29.0-33.0); MEAN CORPUSCULAR HGB CONC 29.9 g/dl (32.0-37.0); MEAN CORPUSCULAR VOLUME 79.6 fl (82.0-101.0); MONOCYTE # 0.5 10^3/ul (0.3-0.9); MONOCYTES % 6.2 % (0.0-11.0); NEUTROPHIL # 4.7 10^3/ul (1.6-7.5); NEUTROPHILS % 59.4 % (39.0-77.0); PLATELET COUNT 324 10^3/UL (140-415); RED BLOOD COUNT 3.87 10^6/ul (4.20-5.40); RED CELL DISTRIBUTION WIDTH 22.5 % (11.5-14.5); WHITE BLOOD COUNT 7.9 10^3/ul (4.8-10.8)
[2017-08-26 05:02] LABS: POSITIVE DIFF @See below
[2017-08-26 05:12] LABS: CALCIUM 8.8 mg/dl (8.4-10.2); CREATININE 0.6 mg/dl (0.44-1.00)
[2017-08-26 05:27] LABS: POTASSIUM 3.8 mmol/L (3.5-5.1)
[2017-08-26] MEDS: LANSOPRAZOLE 30 MG CAP GTB SCH (05:37)
[2017-08-26] MEDS: POLYETHYLENE GLYCOL 17 GM PACKET GTB SCH (08:43)
[2017-08-26] MEDS: POTASSIUM CHLORIDE 50 ML IVPB PRN (09:03)
[2017-08-26] MEDS: COLLAGENASE 30 GM TUBE TOP SCH (09:05)
[2017-08-26] MEDS: ASCORBIC ACID 500 MG TAB GTB SCH (09:05)
[2017-08-26] MEDS: ZINC SULFATE 220 MG CAP GTB SCH (09:05)
[2017-08-26] MEDS: CLOPIDOGREL 75 MG TAB GTB SCH (09:05)
[2017-08-26] MEDS: INSULIN DETEMIR [LEVEMIR] 3ML CART SC SCH (09:08)
[2017-08-26] MEDS: LEVETIRACETAM 500 MG (PMX) 100 ML IVPB SCH ×2 (09:33→20:17)
--- NOTE | 2017-08-26 10:09 | CONS ---
Date/Time of Note Date/Time of Note DATE: 08/26/17 TIME: 10:07 Assessment/Plan Assessment/Plan Additional Assessment/Plan Ventilator setting; AC of 16, tidal volume 500, PEEP of 5, 30% FiO2. Assessment and recommendations; 1. Patient admitted with respiratory failure due to severe hypoventilation, patient has been unable to be weaned off from mechanical ventilation and has failed numerous weaning trials. 2. Advanced dementia. 3. Currently no evidence of any ongoing infective process. Continue current treatment. Patient scheduled for tracheostomy in 48 hours. Consultation Date/Type/Reason Admit Date/Time Aug 13, 2017 at 22:40 Initial Consult Date 08/14/17 Type of Consultation: Pulmonary 24 HR Interval Summary Free Text/Dictation Patient's condition remains unchanged. Remains completely unresponsive. Her shunt however has remained hemodynamically stable. No untoward events reported. General exam; elderly woman, orally intubated, unresponsive, currently in no distress. Exam/Review of Systems Vital Signs Vitals Vital Signs Date Time Temp Pulse Resp B/P Pulse Ox O2 Delivery O2 Flow Rate FiO2 08/26/17 09:00 56 15 150/52 100 Mechanical Ventilator 08/26/17 08:00 30 08/26/17 08:00 98.8 Intake and Output 08/25/17 08/25/17 08/26/17 15:00 23:00 07:00 Intake Total 900 ml 770 ml 680 ml Output Total 370 ml 210 ml 395 ml Balance 530 ml 560 ml 285 ml Exam HEENT exam; supple neck, no JVD. No lymphadenopathy. Midline trachea. No thyromegaly. Orally intubated. Patient has a multiple carious teeth. Chest exam; diminished but clear breath sounds. S1-S2 audible, no murmurs. Regular rhythm. Abdomen exam; soft, nondistended. No organomegaly. Bowel sounds audible. Extremity exam; no peripheral edema. 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 Results Result Diagram: 08/26/17 0430 08/26/17 0430 Results 24 hrs Laboratory Tests Test 08/25/17 13:33 08/25/17 17:12 08/25/17 20:24 08/26/17 00:35 Bedside Glucose 156 138 129 156 Test 08/26/17 04:15 08/26/17 04:30 08/26/17 09:05 Bedside Glucose 122 144 White Blood Count 7.9 Red Blood Count 3.87 L Hemoglobin 9.2 L Hematocrit 30.8 L Mean Corpuscular Volume 79.6 L Mean Corpuscular Hemoglobin 23.8 L Mean Corpuscular Hemoglobin Concent 29.9 L Red Cell Distribution Width 22.5 H Platelet Count 324 Mean Platelet Volume 11.0 H Neutrophils % 59.4 Lymphocytes % 23.8 Monocytes % 6.2 Eosinophils % 9.5 H Basophils % 0.6 Nucleated Red Blood Cells % 0.0 Neutrophils # 4.7 Lymphocytes # 1.9 Monocytes # 0.5 Eosinophils # 0.8 H Basophils # 0.1 Nucleated Red Blood Cells # 0.0 Sodium Level 148 H Potassium Level 3.8 Chloride Level 113 H Carbon Dioxide Level 23 Anion Gap 16 Blood Urea Nitrogen 21 H Creatinine 0.60 Glucose Level 120 Calcium Level 8.8 Medications Medications Current Medications Ondansetron HCl (Zofran Inj) 4 mg Q6H PRN IV NAUSEA AND/OR VOMITING Last administered on 08/24/17 14:40; Admin Dose 4 MG; Start 08/13/17 at 23:00 Acetaminophen (Tylenol Supp) 650 mg Q4H PRN [place] PAIN LEVEL 1-3 OR FEVER Last administered on 08/14/17 05:38; Admin Dose 650 MG; Start 08/13/17 at 23:00 Morphine Sulfate (morphine) 2 mg Q4H PRN IV PAIN LEVEL 7-10 Last administered on 08/19/17 02:16; Admin Dose 2 MG; Start 08/13/17 at 23:00 Ascorbic Acid (Vitamin C) 500 mg DAILY GTB Last administered on 08/26/17 09: 05; Admin Dose 500 MG; Start 08/14/17 at 09:00 Clopidogrel Bisulfate (plaVIX) 75 mg DAILY GTB Last administered on 08/26/17 09:05; Admin Dose 75 MG; Start 08/14/17 at 09:00 Zinc Sulfate (Zinc Sulfate) 220 mg DAILY GTB Last administered on 08/26/17 09 :05; Admin Dose 220 MG; Start 08/14/17 at 09:00 Miscellaneous Information 1 ea NOTE XX ; Start 08/14/17 at 00:30 Glucose (Glutose) 15 gm Q15M PRN PO DECREASED GLUCOSE; Start 08/14/17 at 00:30 Glucose (Glutose) 22.5 gm Q15M PRN PO DECREASED GLUCOSE; Start 08/14/17 at 00: 30 Dextrose (D50w Syringe) 25 ml Q15M PRN IV DECREASED GLUCOSE; Start 08/14/17 at 00:30 Dextrose (D50w Syringe) 50 ml Q15M PRN IV DECREASED GLUCOSE; Start 08/14/17 at 00:30 Glucagon (Glucagen) 1 mg Q15M PRN IM DECREASED GLUCOSE; Start 08/14/17 at 00: 30 Glucose (Glutose) 15 gm Q15M PRN BUCCAL DECREASED GLUCOSE; Start 08/14/17 at 00:30 Bisacodyl (Dulcolax) 10 mg DAILY PRN PO CONSTIPATION Last administered on 13:58; Admin Dose 10 MG; Start 08/14/17 at 14:00 Losartan Potassium (Cozaar) 100 mg QHS GTB Last administered on 08/25/17 20: 44; Admin Dose 100 MG; Start 08/14/17 at 21:00 Magnesium Hydroxide (Milk Of Mag) 30 ml DAILY PRN GTB CONSTIPATION Last administered on 08/18/17 08:48; Admin Dose 30 ML; Start 08/14/17 at 14:00 Miscellaneous Information (Pending Santyl Order For Wound Care) This patient valenzuela... PRN PRN XX WOUND CARE; Start 08/14/17 at 14:30 Lansoprazole (Prevacid) 30 mg DAILY@06 GTB Last administered on 08/26/17 05: 37; Admin Dose 30 MG; Start 08/15/17 at 06:00 Collagenase (Santyl) 1 applic DAILY TOP Last administered on 08/26/17 09:05; Admin Dose 1 APPLIC; Start 08/15/17 at 15:00 Insulin Aspart NOVOLOG *MILD* ALGORI... Q4 SC Last administered on 08/26/17 09:07; Admin Dose 1 UNIT; Start 08/16/17 at 05:00 Fentanyl (Sublimaze) 100 ml @ 2.5 mls/hr TITRATE IV Last administered on 22:43; Admin Dose 5 MLS/HR; Start 08/16/17 at 16:00 Polyethylene Glycol (Miralax) 17 gm DAILY GTB Last administered on 08/24/17 08 :42; Admin Dose 17 GM; Start 08/18/17 at 12:30 Insulin Detemir (Levemir) 21 unit DAILY SC Last administered on 08/26/17 09: 08; Admin Dose 21 UNIT; Start 08/21/17 at 09:00 Hydralazine HCl 10 mg 10 mg Q4H PRN IV ELEVATED BLOOD PRESSURE Last administered on 08/24/17 14:06; Admin Dose 10 MG; Start 08/20/17 at 21:30 Levetiracetam (Keppra 500 Mg/ 100ml (Pmx)) 100 ml @ 400 mls/hr Q12 IVPB Last administered on 08/26/17 09:33; Admin Dose 400 MLS/HR; Start 08/20/17 at 21:30 ADRIANA TOVAR Aug 26, 2017 10:09
--- NOTE | 2017-08-26 12:41 | PN ---
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 1. Hypoxemic respiratory failure - likely secondary to alveolar hypoventilation and HCAP - treated with antibiotics earlier, still intubated. Appears to have resolved now. -Continue vent support for now--> planning for possible extubation soon then trach placement -Follow-up pulmonary recommendations -Patient with apparent underlying dementia. Continue palliative care discussions with family-they met yesterday and family has decided for tracheostomy placement. This will be performed once patient is extubated, likely in 48 hours 2. History of CVA with advanced dementia -Monitor, cont home BP and pain meds 3. G-Tube Malfxn -GI consult appreciated, s/p G-tube fixation 5 days ago - monitor for now, continue tube feeds as tolerated, follow-up GI recommendations 4. Anemia -hemoglobin stable - Monitor H&H 5. DM -A1c equals 9.0 -sugars more stable now - Continue sliding scale and Levemir Critical care time spent on patient care today equals 40 minutes. Problems: Subjective 24 Hr Interval Summary Free Text/Dictation No acute events overnight, still intubated. Exam/Review of Systems Vital Signs Vitals Vital Signs Date Time Temp Pulse Resp B/P Pulse Ox O2 Delivery O2 Flow Rate FiO2 08/26/17 12:00 99.3 67 15 156/56 100 Mechanical Ventilator 08/26/17 08:00 30 Intake and Output 08/25/17 08/25/17 08/26/17 15:00 23:00 07:00 Intake Total 900 ml 770 ml 680 ml Output Total 370 ml 210 ml 395 ml Balance 530 ml 560 ml 285 ml Exam Gen: Lying in bed, intubated, but opens eyes occasionally HEENT: Neck supple; no JVD; no LAD; + et tube Neck: supple CV: RRR, S1 and S2 Res: Clear with occ rhonchi ABD: Soft, NT, + BS, + G-tube EXT: No LE edema B/L Results Result Diagram: 08/26/17 0430 08/26/17 0430 Results 24 hrs Laboratory Tests Test 08/25/17 13:33 08/25/17 17:12 08/25/17 20:24 08/26/17 00:35 Bedside Glucose 156 138 129 156 Test 08/26/17 04:15 08/26/17 04:30 08/26/17 09:05 08/26/17 12:26 Bedside Glucose 122 144 173 White Blood Count 7.9 Red Blood Count 3.87 L Hemoglobin 9.2 L Hematocrit 30.8 L Mean Corpuscular Volume 79.6 L Mean Corpuscular Hemoglobin 23.8 L Mean Corpuscular Hemoglobin Concent 29.9 L Red Cell Distribution Width 22.5 H Platelet Count 324 Mean Platelet Volume 11.0 H Neutrophils % 59.4 Lymphocytes % 23.8 Monocytes % 6.2 Eosinophils % 9.5 H Basophils % 0.6 Nucleated Red Blood Cells % 0.0 Neutrophils # 4.7 Lymphocytes # 1.9 Monocytes # 0.5 Eosinophils # 0.8 H Basophils # 0.1 Nucleated Red Blood Cells # 0.0 Sodium Level 148 H Potassium Level 3.8 Chloride Level 113 H Carbon Dioxide Level 23 Anion Gap 16 Blood Urea Nitrogen 21 H Creatinine 0.60 Glucose Level 120 Calcium Level 8.8 Medications Medications Current Medications Ondansetron HCl (Zofran Inj) 4 mg Q6H PRN IV NAUSEA AND/OR VOMITING Last administered on 08/24/17 14:40; Admin Dose 4 MG; Start 08/13/17 at 23:00 Acetaminophen (Tylenol Supp) 650 mg Q4H PRN [place] PAIN LEVEL 1-3 OR FEVER Last administered on 08/14/17 05:38; Admin Dose 650 MG; Start 08/13/17 at 23:00 Morphine Sulfate (morphine) 2 mg Q4H PRN IV PAIN LEVEL 7-10 Last administered on 08/19/17 02:16; Admin Dose 2 MG; Start 08/13/17 at 23:00 Ascorbic Acid (Vitamin C) 500 mg DAILY GTB Last administered on 08/26/17 09: 05; Admin Dose 500 MG; Start 08/14/17 at 09:00 Clopidogrel Bisulfate (plaVIX) 75 mg DAILY GTB Last administered on 08/26/17 09:05; Admin Dose 75 MG; Start 08/14/17 at 09:00 Zinc Sulfate (Zinc Sulfate) 220 mg DAILY GTB Last administered on 08/26/17 09 :05; Admin Dose 220 MG; Start 08/14/17 at 09:00 Miscellaneous Information 1 ea NOTE XX ; Start 08/14/17 at 00:30 Glucose (Glutose) 15 gm Q15M PRN PO DECREASED GLUCOSE; Start 08/14/17 at 00:30 Glucose (Glutose) 22.5 gm Q15M PRN PO DECREASED GLUCOSE; Start 08/14/17 at 00: 30 Dextrose (D50w Syringe) 25 ml Q15M PRN IV DECREASED GLUCOSE; Start 08/14/17 at 00:30 Dextrose (D50w Syringe) 50 ml Q15M PRN IV DECREASED GLUCOSE; Start 08/14/17 at 00:30 Glucagon (Glucagen) 1 mg Q15M PRN IM DECREASED GLUCOSE; Start 08/14/17 at 00: 30 Glucose (Glutose) 15 gm Q15M PRN BUCCAL DECREASED GLUCOSE; Start 08/14/17 at 00:30 Bisacodyl (Dulcolax) 10 mg DAILY PRN PO CONSTIPATION Last administered on 13:58; Admin Dose 10 MG; Start 08/14/17 at 14:00 Losartan Potassium (Cozaar) 100 mg QHS GTB Last administered on 08/25/17 20: 44; Admin Dose 100 MG; Start 08/14/17 at 21:00 Magnesium Hydroxide (Milk Of Mag) 30 ml DAILY PRN GTB CONSTIPATION Last administered on 08/18/17 08:48; Admin Dose 30 ML; Start 08/14/17 at 14:00 Miscellaneous Information (Pending Santyl Order For Wound Care) This patient valenzuela... PRN PRN XX WOUND CARE; Start 08/14/17 at 14:30 Lansoprazole (Prevacid) 30 mg DAILY@06 GTB Last administered on 08/26/17 05: 37; Admin Dose 30 MG; Start 08/15/17 at 06:00 Collagenase (Santyl) 1 applic DAILY TOP Last administered on 08/26/17 09:05; Admin Dose 1 APPLIC; Start 08/15/17 at 15:00 Insulin Aspart NOVOLOG *MILD* ALGORI... Q4 SC Last administered on 08/26/17 12:28; Admin Dose 1 UNIT; Start 08/16/17 at 05:00 Fentanyl (Sublimaze) 100 ml @ 2.5 mls/hr TITRATE IV Last administered on 22:43; Admin Dose 5 MLS/HR; Start 08/16/17 at 16:00 Polyethylene Glycol (Miralax) 17 gm DAILY GTB Last administered on 08/24/17 08 :42; Admin Dose 17 GM; Start 08/18/17 at 12:30 Insulin Detemir (Levemir) 21 unit DAILY SC Last administered on 08/26/17 09: 08; Admin Dose 21 UNIT; Start 08/21/17 at 09:00 Hydralazine HCl 10 mg 10 mg Q4H PRN IV ELEVATED BLOOD PRESSURE Last administered on 08/24/17 14:06; Admin Dose 10 MG; Start 08/20/17 at 21:30 Levetiracetam (Keppra 500 Mg/ 100ml (Pmx)) 100 ml @ 400 mls/hr Q12 IVPB Last administered on 08/26/17 09:33; Admin Dose 400 MLS/HR; Start 08/20/17 at 21:30 IVKTOR ESPINOZA 11, 2017 12:41
[2017-08-26] MEDS: hydrALAzine 20 MG INJ IV PRN (13:19)
[2017-08-26] MEDS ORDERED: DEXTROSE 5% 1,000 ML IV SCH (15:00)
--- NOTE | 2017-08-26 20:15 | PN ---
Date/Time of Note Date/Time of Note DATE: 08/26/17 TIME: 20:14 Assessment/Plan Lines/Catheters IV Catheter Type (from Nrsg): Central Line Lane in Place (from Nrsg): Yes Assessment/Plan Chief Complaint/Hosp Course IMPRESSION: 1. Hypoxic respiratory failure secondary to albuterol hypoventilation. 2. History of cerebrovascular accident. 3. Unable to come off the ventilator. RECOMMENDATIONS: We will proceed with a tracheostomyMonday . Discussed with the nursing staff. Problems: Subjective 24 Hr Interval Summary Constitutional: improved Pain Control: mild Exam/Review of Systems Vital Signs Vitals Vital Signs Date Time Temp Pulse Resp B/P Pulse Ox O2 Delivery O2 Flow Rate FiO2 08/26/17 19:25 76 16 100 30 08/26/17 19:00 145/56 Mechanical Ventilator 08/26/17 16:00 99.2 Intake and Output 08/25/17 08/25/17 08/26/17 15:00 23:00 07:00 Intake Total 900 ml 770 ml 680 ml Output Total 370 ml 210 ml 395 ml Balance 530 ml 560 ml 285 ml Exam ENMT: No intubated, No mucosa pink and moist, No nl external ears & nose, No nl lips & teeth, No nl nasal mucosa & septum, No other, No tympanic membranes Respiratory: clear to auscultation, normal air movement Cardiovascular: nl pulses, regular rate and rhythm Results Result Diagram: 08/26/17 0430 08/26/17 0430 CHRISTY PIERCE MD Aug 26, 2017 20:15
[2017-08-26] MEDS: LOSARTAN 50 MG TAB GTB SCH (20:18)
[2017-08-27] VITALS (37 sets, daily range): BP systolic 125–172; BP diastolic 45–64; PULSE 54–77; RESP 14–19
[2017-08-27] MEDS: INSULIN ASPART [NOVOLOG] 3 ML PEN SC SCH ×6 (01:17→20:25)
[2017-08-27 04:44] LABS: BASOPHILS % 0.3 % (0.0-2.0); EOSINOPHILS # 0.7 10^3/ul (0.0-0.5); EOSINOPHILS % 9.6 % (0.0-7.0); HEMATOCRIT 29.2 % (37.0-47.0); HEMOGLOBIN 8.7 g/dl (12.0-16.0); LYMPHOCYTES # 1.5 10^3/ul (0.8-2.9); LYMPHOCYTES % 20.9 % (15.0-51.0); MEAN CORPUSCULAR HEMOGLOBIN 23.8 pg (29.0-33.0); MEAN CORPUSCULAR HGB CONC 29.8 g/dl (32.0-37.0); MEAN CORPUSCULAR VOLUME 79.8 fl (82.0-101.0); MEAN PLATELET VOLUME 11.2 fl (7.4-10.4); MONOCYTE # 0.5 10^3/ul (0.3-0.9); MONOCYTES % 6.2 % (0.0-11.0); NEUTROPHIL # 4.5 10^3/ul (1.6-7.5); NEUTROPHILS % 62.6 % (39.0-77.0); PLATELET COUNT 310 10^3/UL (140-415); RED BLOOD COUNT 3.66 10^6/ul (4.20-5.40); RED CELL DISTRIBUTION WIDTH 21.3 % (11.5-14.5); WHITE BLOOD COUNT 7.2 10^3/ul (4.8-10.8)
[2017-08-27 05:13] LABS: CALCIUM 9.1 mg/dl (8.4-10.2); CREATININE 0.46 mg/dl (0.44-1.00); POTASSIUM 3.6 mmol/L (3.5-5.1)
[2017-08-27] MEDS: LANSOPRAZOLE 30 MG CAP GTB SCH (05:22)
--- NOTE | 2017-08-27 08:32 | CONS ---
Date/Time of Note Date/Time of Note DATE: 08/27/17 TIME: 08:29 Assessment/Plan Assessment/Plan Additional Assessment/Plan Ventilator setting; AC of 16, tidal volume 500, PEEP of 5, 30% FiO2. Assessment and recommendations; 1. Patient admitted with respiratory failure likely due to severe central hypoventilation. Patient has failed multiple weaning attempts from ventilator. Patient again was given a CPAP trial at bedside and is essentially apneic. 2. Status post treatment of possible aspiration pneumonia. 3. Stable seizure disorder. 4. History of hypertension and diabetes. Continue current treatment. Patient scheduled for tracheostomy and G-tube placement. Prognosis is poor. Consultation Date/Type/Reason Admit Date/Time Aug 13, 2017 at 22:40 Initial Consult Date 08/14/17 Type of Consultation: Pulmonary 24 HR Interval Summary Free Text/Dictation Patient's condition remains unchanged. Remains awake but unresponsive to any commands. She has remained hemodynamically stable. General exam; elderly woman, awake, orally intubated, currently in no distress. Exam/Review of Systems Vital Signs Vitals Vital Signs Date Time Temp Pulse Resp B/P Pulse Ox O2 Delivery O2 Flow Rate FiO2 08/27/17 08:00 97.9 70 16 156/57 100 Mechanical Ventilator 08/27/17 05:26 30 Intake and Output 08/26/17 08/26/17 08/27/17 14:59 22:59 06:59 Intake Total 1030 ml 1355 ml 1130 ml Output Total 230 ml 470 ml 1250 ml Balance 800 ml 885 ml -120 ml Exam HEENT exam; supple neck, no JVD. No lymphadenopathy. Midline trachea. No thyromegaly. Orally intubated. Patient does have multiple carious teeth. Pupils are small bilaterally. Chest exam; clear to auscultation. S1-S2 audible, no murmurs. Regular rhythm. Abdomen exam; soft, nondistended. No organomegaly. Bowel sounds audible. Extremity exam; no peripheral edema. REGISTERED NURSE HH CASE MANAGER exam; patient is awake but unresponsive to any commands. Results Result Diagram: 08/27/17 0400 08/27/17 0400 Results 24 hrs Laboratory Tests Test 08/26/17 09:05 08/26/17 12:26 08/26/17 17:38 08/26/17 20:26 Bedside Glucose 144 173 145 154 Test 08/27/17 01:13 08/27/17 04:00 08/27/17 05:17 Bedside Glucose 167 138 White Blood Count 7.2 Red Blood Count 3.66 L Hemoglobin 8.7 L Hematocrit 29.2 L Mean Corpuscular Volume 79.8 L Mean Corpuscular Hemoglobin 23.8 L Mean Corpuscular Hemoglobin Concent 29.8 L Red Cell Distribution Width 21.3 H Platelet Count 310 Mean Platelet Volume 11.2 H Neutrophils % 62.6 Lymphocytes % 20.9 Monocytes % 6.2 Eosinophils % 9.6 H Basophils % 0.3 Nucleated Red Blood Cells % 0.0 Neutrophils # 4.5 Lymphocytes # 1.5 Monocytes # 0.5 Eosinophils # 0.7 H Basophils # 0.0 Nucleated Red Blood Cells # 0.0 Sodium Level 144 Potassium Level 3.6 Chloride Level 110 Carbon Dioxide Level 24 Anion Gap 14 Blood Urea Nitrogen 14 Creatinine 0.46 Glucose Level 154 Calcium Level 9.1 Medications Medications Current Medications Ondansetron HCl (Zofran Inj) 4 mg Q6H PRN IV NAUSEA AND/OR VOMITING Last administered on 08/24/17 14:40; Admin Dose 4 MG; Start 08/13/17 at 23:00 Acetaminophen (Tylenol Supp) 650 mg Q4H PRN [place] PAIN LEVEL 1-3 OR FEVER Last administered on 08/14/17 05:38; Admin Dose 650 MG; Start 08/13/17 at 23:00 Morphine Sulfate (morphine) 2 mg Q4H PRN IV PAIN LEVEL 7-10 Last administered on 08/19/17 02:16; Admin Dose 2 MG; Start 08/13/17 at 23:00 Ascorbic Acid (Vitamin C) 500 mg DAILY GTB Last administered on 08/26/17 09: 05; Admin Dose 500 MG; Start 08/14/17 at 09:00 Clopidogrel Bisulfate (plaVIX) 75 mg DAILY GTB Last administered on 08/26/17 09:05; Admin Dose 75 MG; Start 08/14/17 at 09:00 Zinc Sulfate (Zinc Sulfate) 220 mg DAILY GTB Last administered on 08/26/17 09 :05; Admin Dose 220 MG; Start 08/14/17 at 09:00 Miscellaneous Information 1 ea NOTE XX ; Start 08/14/17 at 00:30 Glucose (Glutose) 15 gm Q15M PRN PO DECREASED GLUCOSE; Start 08/14/17 at 00:30 Glucose (Glutose) 22.5 gm Q15M PRN PO DECREASED GLUCOSE; Start 08/14/17 at 00: 30 Dextrose (D50w Syringe) 25 ml Q15M PRN IV DECREASED GLUCOSE; Start 08/14/17 at 00:30 Dextrose (D50w Syringe) 50 ml Q15M PRN IV DECREASED GLUCOSE; Start 08/14/17 at 00:30 Glucagon (Glucagen) 1 mg Q15M PRN IM DECREASED GLUCOSE; Start 08/14/17 at 00: 30 Glucose (Glutose) 15 gm Q15M PRN BUCCAL DECREASED GLUCOSE; Start 08/14/17 at 00:30 Bisacodyl (Dulcolax) 10 mg DAILY PRN PO CONSTIPATION Last administered on 13:58; Admin Dose 10 MG; Start 08/14/17 at 14:00 Losartan Potassium (Cozaar) 100 mg QHS GTB Last administered on 08/26/17 20: 18; Admin Dose 100 MG; Start 08/14/17 at 21:00 Magnesium Hydroxide (Milk Of Mag) 30 ml DAILY PRN GTB CONSTIPATION Last administered on 08/18/17 08:48; Admin Dose 30 ML; Start 08/14/17 at 14:00 Miscellaneous Information (Pending Santyl Order For Wound Care) This patient valenzuela... PRN PRN XX WOUND CARE; Start 08/14/17 at 14:30 Lansoprazole (Prevacid) 30 mg DAILY@06 GTB Last administered on 08/27/17 05: 22; Admin Dose 30 MG; Start 08/15/17 at 06:00 Collagenase (Santyl) 1 applic DAILY TOP Last administered on 08/26/17 09:05; Admin Dose 1 APPLIC; Start 08/15/17 at 15:00 Insulin Aspart NOVOLOG *MILD* ALGORI... Q4 SC Last administered on 08/27/17 01:17; Admin Dose 1 UNIT; Start 08/16/17 at 05:00 Fentanyl (Sublimaze) 100 ml @ 2.5 mls/hr TITRATE IV Last administered on 22:43; Admin Dose 5 MLS/HR; Start 08/16/17 at 16:00 Polyethylene Glycol (Miralax) 17 gm DAILY GTB Last administered on 08/24/17 08 :42; Admin Dose 17 GM; Start 08/18/17 at 12:30 Insulin Detemir (Levemir) 21 unit DAILY SC Last administered on 08/26/17 09: 08; Admin Dose 21 UNIT; Start 08/21/17 at 09:00 Hydralazine HCl 10 mg 10 mg Q4H PRN IV ELEVATED BLOOD PRESSURE Last administered on 08/26/17 13:19; Admin Dose 10 MG; Start 08/20/17 at 21:30 Levetiracetam (Keppra 500 Mg/ 100ml (Pmx)) 100 ml @ 400 mls/hr Q12 IVPB Last administered on 08/26/17 20:17; Admin Dose 400 MLS/HR; Start 08/20/17 at 21:30 ADRIANA TOVAR Aug 27, 2017 08:32
[2017-08-27] MEDS: POLYETHYLENE GLYCOL 17 GM PACKET GTB SCH (09:00)
[2017-08-27] MEDS: LEVETIRACETAM 500 MG (PMX) 100 ML IVPB SCH ×2 (09:02→20:24)
[2017-08-27] MEDS: POTASSIUM CHLORIDE 50 ML IVPB PRN ×2 (09:08→16:57)
[2017-08-27] MEDS: ASCORBIC ACID 500 MG TAB GTB SCH (09:19)
[2017-08-27] MEDS: CLOPIDOGREL 75 MG TAB GTB SCH (09:19)
[2017-08-27] MEDS: ZINC SULFATE 220 MG CAP GTB SCH (09:20)
--- NOTE | 2017-08-27 09:32 | PN ---
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 1. Hypoxemic respiratory failure - likely secondary to alveolar hypoventilation and HCAP - treated with antibiotics earlier, improved, but still intubated. -Continue vent support for now--> planning for likely extubation then trach placement in 24 hours -Follow-up pulmonary recommendations -Patient with apparent underlying dementia. Continue palliative care discussions with family-they met earlier in the week and family has decided for tracheostomy placement. Again, this will be performed in 24 hours. 2. History of CVA with advanced dementia -Monitor, cont home BP and pain meds, Plavix 3. G-Tube Malfxn -GI consult appreciated, s/p G-tube fixation 6 days ago - monitor for now, continue tube feeds as tolerated, follow-up GI recommendations 4. Anemia -hemoglobin stable - Monitor H&H q. a.m. 5. DM -A1c equals 9.0 -sugars stable - Continue sliding scale and Levemir Critical care time spent on patient care today equals 45 minutes. Problems: Subjective 24 Hr Interval Summary Free Text/Dictation Still intubated, seen by pulmonary team this morning. Exam/Review of Systems Vital Signs Vitals Vital Signs Date Time Temp Pulse Resp B/P Pulse Ox O2 Delivery O2 Flow Rate FiO2 08/27/17 08:00 97.9 70 16 156/57 100 Mechanical Ventilator 08/27/17 05:26 30 Intake and Output 08/26/17 08/26/17 08/27/17 14:59 22:59 06:59 Intake Total 1030 ml 1355 ml 1130 ml Output Total 230 ml 470 ml 1250 ml Balance 800 ml 885 ml -120 ml Exam Gen: Lying in bed, intubated, but opens eyes occasionally HEENT: Neck supple; no JVD; no LAD; + et tube Neck: supple CV: RRR, S1 and S2 Res: Clear with occ rhonchi ABD: Soft, NT, + BS, + G-tube EXT: No LE edema B/L Results Result Diagram: 08/27/17 0400 08/27/17 0400 Results 24 hrs Laboratory Tests Test 08/26/17 12:26 08/26/17 17:38 08/26/17 20:26 08/27/17 01:13 Bedside Glucose 173 145 154 167 Test 08/27/17 04:00 08/27/17 05:17 White Blood Count 7.2 Red Blood Count 3.66 L Hemoglobin 8.7 L Hematocrit 29.2 L Mean Corpuscular Volume 79.8 L Mean Corpuscular Hemoglobin 23.8 L Mean Corpuscular Hemoglobin Concent 29.8 L Red Cell Distribution Width 21.3 H Platelet Count 310 Mean Platelet Volume 11.2 H Neutrophils % 62.6 Lymphocytes % 20.9 Monocytes % 6.2 Eosinophils % 9.6 H Basophils % 0.3 Nucleated Red Blood Cells % 0.0 Neutrophils # 4.5 Lymphocytes # 1.5 Monocytes # 0.5 Eosinophils # 0.7 H Basophils # 0.0 Nucleated Red Blood Cells # 0.0 Sodium Level 144 Potassium Level 3.6 Chloride Level 110 Carbon Dioxide Level 24 Anion Gap 14 Blood Urea Nitrogen 14 Creatinine 0.46 Glucose Level 154 Calcium Level 9.1 Bedside Glucose 138 Medications Medications Current Medications Ondansetron HCl (Zofran Inj) 4 mg Q6H PRN IV NAUSEA AND/OR VOMITING Last administered on 08/24/17 14:40; Admin Dose 4 MG; Start 08/13/17 at 23:00 Acetaminophen (Tylenol Supp) 650 mg Q4H PRN [place] PAIN LEVEL 1-3 OR FEVER Last administered on 08/14/17 05:38; Admin Dose 650 MG; Start 08/13/17 at 23:00 Morphine Sulfate (morphine) 2 mg Q4H PRN IV PAIN LEVEL 7-10 Last administered on 08/19/17 02:16; Admin Dose 2 MG; Start 08/13/17 at 23:00 Ascorbic Acid (Vitamin C) 500 mg DAILY GTB Last administered on 08/26/17 09: 05; Admin Dose 500 MG; Start 08/14/17 at 09:00 Clopidogrel Bisulfate (plaVIX) 75 mg DAILY GTB Last administered on 08/26/17 09:05; Admin Dose 75 MG; Start 08/14/17 at 09:00 Zinc Sulfate (Zinc Sulfate) 220 mg DAILY GTB Last administered on 08/26/17 09 :05; Admin Dose 220 MG; Start 08/14/17 at 09:00 Miscellaneous Information 1 ea NOTE XX ; Start 08/14/17 at 00:30 Glucose (Glutose) 15 gm Q15M PRN PO DECREASED GLUCOSE; Start 08/14/17 at 00:30 Glucose (Glutose) 22.5 gm Q15M PRN PO DECREASED GLUCOSE; Start 08/14/17 at 00: 30 Dextrose (D50w Syringe) 25 ml Q15M PRN IV DECREASED GLUCOSE; Start 08/14/17 at 00:30 Dextrose (D50w Syringe) 50 ml Q15M PRN IV DECREASED GLUCOSE; Start 08/14/17 at 00:30 Glucagon (Glucagen) 1 mg Q15M PRN IM DECREASED GLUCOSE; Start 08/14/17 at 00: 30 Glucose (Glutose) 15 gm Q15M PRN BUCCAL DECREASED GLUCOSE; Start 08/14/17 at 00:30 Bisacodyl (Dulcolax) 10 mg DAILY PRN PO CONSTIPATION Last administered on 13:58; Admin Dose 10 MG; Start 08/14/17 at 14:00 Losartan Potassium (Cozaar) 100 mg QHS GTB Last administered on 08/26/17 20: 18; Admin Dose 100 MG; Start 08/14/17 at 21:00 Magnesium Hydroxide (Milk Of Mag) 30 ml DAILY PRN GTB CONSTIPATION Last administered on 08/18/17 08:48; Admin Dose 30 ML; Start 08/14/17 at 14:00 Miscellaneous Information (Pending Santyl Order For Wound Care) This patient valenzuela... PRN PRN XX WOUND CARE; Start 08/14/17 at 14:30 Lansoprazole (Prevacid) 30 mg DAILY@06 GTB Last administered on 08/27/17 05: 22; Admin Dose 30 MG; Start 08/15/17 at 06:00 Collagenase (Santyl) 1 applic DAILY TOP Last administered on 08/26/17 09:05; Admin Dose 1 APPLIC; Start 08/15/17 at 15:00 Insulin Aspart NOVOLOG *MILD* ALGORI... Q4 SC Last administered on 08/27/17 01:17; Admin Dose 1 UNIT; Start 08/16/17 at 05:00 Fentanyl (Sublimaze) 100 ml @ 2.5 mls/hr TITRATE IV Last administered on 22:43; Admin Dose 5 MLS/HR; Start 08/16/17 at 16:00 Polyethylene Glycol (Miralax) 17 gm DAILY GTB Last administered on 08/24/17 08 :42; Admin Dose 17 GM; Start 08/18/17 at 12:30 Insulin Detemir (Levemir) 21 unit DAILY SC Last administered on 08/26/17 09: 08; Admin Dose 21 UNIT; Start 08/21/17 at 09:00 Hydralazine HCl 10 mg 10 mg Q4H PRN IV ELEVATED BLOOD PRESSURE Last administered on 08/26/17 13:19; Admin Dose 10 MG; Start 08/20/17 at 21:30 Levetiracetam (Keppra 500 Mg/ 100ml (Pmx)) 100 ml @ 400 mls/hr Q12 IVPB Last administered on 08/26/17 20:17; Admin Dose 400 MLS/HR; Start 08/20/17 at 21:30 VIKTOR ESPINOZA 12, 2017 09:32
[2017-08-27] MEDS: INSULIN DETEMIR [LEVEMIR] 3ML CART SC SCH (09:38)
[2017-08-27] MEDS: COLLAGENASE 30 GM TUBE TOP SCH (09:43)
--- NOTE | 2017-08-27 18:37 | PN ---
Date/Time of Note Date/Time of Note DATE: 08/27/17 TIME: 18:36 Assessment/Plan Lines/Catheters IV Catheter Type (from Nrsg): Central Line Lane in Place (from Nrsg): Yes Assessment/Plan Chief Complaint/Hosp Course IMPRESSION: 1. Hypoxic respiratory failure secondary to albuterol hypoventilation. 2. History of cerebrovascular accident. 3. Unable to come off the ventilator. RECOMMENDATIONS: We will proceed with a tracheostomy on Monday . Discussed with the nursing staff. Problems: Subjective 24 Hr Interval Summary Constitutional: improved Pain Control: mild Exam/Review of Systems Vital Signs Vitals Vital Signs Date Time Temp Pulse Resp B/P Pulse Ox O2 Delivery O2 Flow Rate FiO2 08/27/17 16:55 99.0 08/27/17 16:45 77 16 100 30 08/27/17 16:00 158/57 Mechanical Ventilator Intake and Output 08/26/17 08/26/17 08/27/17 14:59 22:59 06:59 Intake Total 1030 ml 1355 ml 1130 ml Output Total 230 ml 470 ml 1250 ml Balance 800 ml 885 ml -120 ml Exam ENMT: mucosa pink and moist, nl external ears & nose, nl lips & teeth, nl nasal mucosa & septum Neck: non-tender, supple Respiratory: clear to auscultation, normal air movement Cardiovascular: nl pulses, regular rate and rhythm Results Result Diagram: 08/27/1739908/27/17399 CHRISTY PIERCE MD Aug 27, 2017 18:37
[2017-08-27] MEDS: LOSARTAN 50 MG TAB GTB SCH (20:25)
[2017-08-27] MEDS: hydrALAzine 20 MG INJ IV PRN (21:21)
[2017-08-28] VITALS (36 sets, daily range): BP systolic 131–175; BP diastolic 45–76; PULSE 53–81; RESP 14–19
[2017-08-28] MEDS: INSULIN ASPART [NOVOLOG] 3 ML PEN SC SCH ×6 (01:00→22:00)
[2017-08-28] MEDS: LANSOPRAZOLE 30 MG CAP GTB SCH (04:52)
[2017-08-28 05:35] LABS: BASOPHIL # 0.1 10^3/ul (0.0-0.1); BASOPHILS % 0.7 % (0.0-2.0); EOSINOPHILS # 0.6 10^3/ul (0.0-0.5); HEMATOCRIT 29.7 % (37.0-47.0); HEMOGLOBIN 8.8 g/dl (12.0-16.0); LYMPHOCYTES # 1.5 10^3/ul (0.8-2.9); LYMPHOCYTES % 20.5 % (15.0-51.0); MEAN CORPUSCULAR HEMOGLOBIN 23.4 pg (29.0-33.0); MEAN CORPUSCULAR HGB CONC 29.6 g/dl (32.0-37.0); MEAN PLATELET VOLUME 11.6 fl (7.4-10.4); MONOCYTE # 0.4 10^3/ul (0.3-0.9); MONOCYTES % 5.9 % (0.0-11.0); NEUTROPHIL # 4.8 10^3/ul (1.6-7.5); NEUTROPHILS % 64.4 % (39.0-77.0); PLATELET COUNT 308 10^3/UL (140-415); RED BLOOD COUNT 3.76 10^6/ul (4.20-5.40); RED CELL DISTRIBUTION WIDTH 21.5 % (11.5-14.5); WHITE BLOOD COUNT 7.4 10^3/ul (4.8-10.8)
[2017-08-28 05:52] LABS: CALCIUM 9.1 mg/dl (8.4-10.2); CREATININE 0.45 mg/dl (0.44-1.00); PHOSPHORUS 3.4 mg/dl (2.5-4.9); POTASSIUM 3.8 mmol/L (3.5-5.1)
[2017-08-28] MEDS: POTASSIUM CHLORIDE 50 ML IVPB PRN (06:20)
[2017-08-28] MEDS: ASCORBIC ACID 500 MG TAB GTB SCH (08:50)
[2017-08-28] MEDS: CLOPIDOGREL 75 MG TAB GTB SCH (08:50)
[2017-08-28] MEDS: ZINC SULFATE 220 MG CAP GTB SCH (08:50)
[2017-08-28] MEDS: LEVETIRACETAM 500 MG (PMX) 100 ML IVPB SCH (09:09)
[2017-08-28] MEDS: COLLAGENASE 30 GM TUBE TOP SCH (09:09)
[2017-08-28] MEDS: INSULIN DETEMIR [LEVEMIR] 3ML CART SC SCH (09:10)
[2017-08-28] MEDS ORDERED: NALOXONE (0.4 MG/ML) INJ ONE (09:38)
--- NOTE | 2017-08-28 11:03 | CONS ---
Date/Time of Note Date/Time of Note DATE: 08/28/17 TIME: 11:01 Assessment/Plan Assessment/Plan Additional Assessment/Plan Ventilator setting; AC of 16, tidal volume 500, PEEP of 5, 30% FiO2. Assessment and recommendations; 1. Patient admitted with respiratory failure due to severe central hypoventilation, patient has failed numerous weaning trials. 2. Advanced dementia. 3. Stable seizure disorder and hypertension as well as diabetes. Continue current supportive care. Patient scheduled for tracheostomy and G- tube placement. Consultation Date/Type/Reason Admit Date/Time Aug 13, 2017 at 22:40 Initial Consult Date 08/14/17 Type of Consultation: Pulmonary 24 HR Interval Summary Free Text/Dictation Patient's condition remains stable. Remains awake but unresponsive to any commands. Has remained hemodynamically stable. General exam; elderly woman, orally intubated, awake, currently in no distress. Exam/Review of Systems Vital Signs Vitals Vital Signs Date Time Temp Pulse Resp B/P Pulse Ox O2 Delivery O2 Flow Rate FiO2 08/28/17 10:00 53 19 145/55 100 Mechanical Ventilator 08/28/17 09:15 30 08/28/17 09:00 Intake and Output 08/27/17 08/27/17 08/28/17 15:00 23:00 07:00 Intake Total 1030 ml 890 ml 60 ml Output Total 680 ml 1095 ml 690 ml Balance 350 ml -205 ml -630 ml Exam HEENT exam; supple neck, no JVD. No lymphadenopathy. Midline trachea. No thyromegaly. Orally intubated. Patient has fair dentition. Chest exam; diminished but clear breath sounds. S1-S2 audible, no murmurs. Regular rhythm. Abdomen exam; soft, nondistended. No organomegaly. Bowel sounds audible. Extremity exam; no peripheral edema. DEPUTY K 9 exam; patient is awake but does not follow any commands. Results Result Diagram: 08/28/17 0400 08/28/17 0400 Results 24 hrs Laboratory Tests Test 08/27/17 12:35 08/27/17 17:45 08/27/17 20:23 08/28/17 00:45 Bedside Glucose 174 172 135 134 Test 08/28/17 04:00 08/28/17 04:52 08/28/17 08:55 White Blood Count 7.4 Red Blood Count 3.76 L Hemoglobin 8.8 L Hematocrit 29.7 L Mean Corpuscular Volume 79.0 L Mean Corpuscular Hemoglobin 23.4 L Mean Corpuscular Hemoglobin Concent 29.6 L Red Cell Distribution Width 21.5 H Platelet Count 308 Mean Platelet Volume 11.6 H Neutrophils % 64.4 Lymphocytes % 20.5 Monocytes % 5.9 Eosinophils % 8.0 H Basophils % 0.7 Nucleated Red Blood Cells % 0.0 Neutrophils # 4.8 Lymphocytes # 1.5 Monocytes # 0.4 Eosinophils # 0.6 H Basophils # 0.1 Nucleated Red Blood Cells # 0.0 Sodium Level 146 H Potassium Level 3.8 Chloride Level 112 H Carbon Dioxide Level 24 Anion Gap 14 Blood Urea Nitrogen 13 Creatinine 0.45 Glucose Level 115 Calcium Level 9.1 Phosphorus Level 3.4 Magnesium Level 2.0 Bedside Glucose 131 127 Medications Medications Current Medications Ondansetron HCl (Zofran Inj) 4 mg Q6H PRN IV NAUSEA AND/OR VOMITING Last administered on 08/24/17 14:40; Admin Dose 4 MG; Start 08/13/17 at 23:00 Acetaminophen (Tylenol Supp) 650 mg Q4H PRN [place] PAIN LEVEL 1-3 OR FEVER Last administered on 08/14/17 05:38; Admin Dose 650 MG; Start 08/13/17 at 23:00 Morphine Sulfate (morphine) 2 mg Q4H PRN IV PAIN LEVEL 7-10 Last administered on 08/19/17 02:16; Admin Dose 2 MG; Start 08/13/17 at 23:00 Ascorbic Acid (Vitamin C) 500 mg DAILY GTB Last administered on 08/27/17 09: 19; Admin Dose 500 MG; Start 08/14/17 at 09:00 Clopidogrel Bisulfate (plaVIX) 75 mg DAILY GTB Last administered on 08/27/17 09:19; Admin Dose 75 MG; Start 08/14/17 at 09:00 Zinc Sulfate (Zinc Sulfate) 220 mg DAILY GTB Last administered on 08/27/17 09 :20; Admin Dose 220 MG; Start 08/14/17 at 09:00 Miscellaneous Information 1 ea NOTE XX ; Start 08/14/17 at 00:30 Glucose (Glutose) 15 gm Q15M PRN PO DECREASED GLUCOSE; Start 08/14/17 at 00:30 Glucose (Glutose) 22.5 gm Q15M PRN PO DECREASED GLUCOSE; Start 08/14/17 at 00: 30 Dextrose (D50w Syringe) 25 ml Q15M PRN IV DECREASED GLUCOSE; Start 08/14/17 at 00:30 Dextrose (D50w Syringe) 50 ml Q15M PRN IV DECREASED GLUCOSE; Start 08/14/17 at 00:30 Glucagon (Glucagen) 1 mg Q15M PRN IM DECREASED GLUCOSE; Start 08/14/17 at 00: 30 Glucose (Glutose) 15 gm Q15M PRN BUCCAL DECREASED GLUCOSE; Start 08/14/17 at 00:30 Bisacodyl (Dulcolax) 10 mg DAILY PRN PO CONSTIPATION Last administered on 13:58; Admin Dose 10 MG; Start 08/14/17 at 14:00 Losartan Potassium (Cozaar) 100 mg QHS GTB Last administered on 08/27/17 20: 25; Admin Dose 100 MG; Start 08/14/17 at 21:00 Magnesium Hydroxide (Milk Of Mag) 30 ml DAILY PRN GTB CONSTIPATION Last administered on 08/18/17 08:48; Admin Dose 30 ML; Start 08/14/17 at 14:00 Miscellaneous Information (Pending Santyl Order For Wound Care) This patient valenzuela... PRN PRN XX WOUND CARE; Start 08/14/17 at 14:30 Lansoprazole (Prevacid) 30 mg DAILY@06 GTB Last administered on 08/27/17 05: 22; Admin Dose 30 MG; Start 08/15/17 at 06:00 Collagenase (Santyl) 1 applic DAILY TOP Last administered on 08/28/17 09:09; Admin Dose 1 APPLIC; Start 08/15/17 at 15:00 Insulin Aspart NOVOLOG *MILD* ALGORI... Q4 SC Last administered on 08/27/17 17:54; Admin Dose 1 UNIT; Start 08/16/17 at 05:00 Fentanyl (Sublimaze) 100 ml @ 2.5 mls/hr TITRATE IV Last administered on 22:43; Admin Dose 5 MLS/HR; Start 08/16/17 at 16:00 Polyethylene Glycol (Miralax) 17 gm DAILY GTB Last administered on 08/24/17 08 :42; Admin Dose 17 GM; Start 08/18/17 at 12:30; Status Future Hold Insulin Detemir (Levemir) 21 unit DAILY SC Last administered on 08/28/17 09: 10; Admin Dose 14 UNIT; Start 08/21/17 at 09:00 Hydralazine HCl 10 mg 10 mg Q4H PRN IV ELEVATED BLOOD PRESSURE Last administered on 08/27/17 21:21; Admin Dose 10 MG; Start 08/20/17 at 21:30 Levetiracetam (Keppra 500 Mg/ 100ml (Pmx)) 100 ml @ 400 mls/hr Q12 IVPB Last administered on 08/28/17 09:09; Admin Dose 400 MLS/HR; Start 08/20/17 at 21:30 ADRIANA TOVAR Aug 28, 2017 11:03
--- NOTE | 2017-08-28 11:33 | PN ---
Date/Time of Note Date/Time of Note DATE: 08/28/17 TIME: 11:29 Assessment/Plan VTE Prophylaxis VTE Prophylaxis Intervention: SCD's Lines/Catheters IV Catheter Type (from Nrsg): Central Line Central line still needed: No Urinary Cath still in place: Yes Reason Cath still needed: other (indicate) (critically ill) Assessment/Plan Assessment/Plan 71 yo F with pmhx chronic encephalopathy and dysphagia 2/2 old CVA with chronic g tube admitted for sepsis (tachycardia/fever) possibly 2/2 healthcare associated aspiration pneumonia with ESBL Klebsiella. Hospitalization also notable for GTube malfunction, sp adjustment by GI./ #hypoxic respiratory failure 2/2 HCAP and failure to wean likely 2/2 chronic dementia -trach today per family request #Hx CVA, dementia -cont home plavix, keppra, BP meds -cont PEG--->Na this AM slightly high. Will recheck in AM and if still high will add FW to TFs #DM2 cont inuslin #prophx: DVT prophx, GI prophx given pt still intubated dispo: CM consult for LTAC. can be dc'ed once trach placement complete critical care time: 30 minutes Subjective 24 Hr Interval Summary Free Text/Dictation plan for trach today Exam/Review of Systems Vital Signs Vitals Vital Signs Date Time Temp Pulse Resp B/P Pulse Ox O2 Delivery O2 Flow Rate FiO2 08/28/17 11:00 63 16 175/63 100 Mechanical Ventilator 08/28/17 09:15 30 08/28/17 09:00 Intake and Output 08/27/17 08/27/17 08/28/17 15:00 23:00 07:00 Intake Total 1030 ml 890 ml 110 ml Output Total 680 ml 1095 ml 690 ml Balance 350 ml -205 ml -580 ml Exam nad lungs clear g tube in place no rashes no edema Results Result Diagram: 08/28/17 0400 08/28/17 0400 Results 24 hrs Laboratory Tests Test 08/27/17 12:35 08/27/17 17:45 08/27/17 20:23 08/28/17 00:45 Bedside Glucose 174 172 135 134 Test 08/28/17 04:00 08/28/17 04:52 08/28/17 08:55 08/28/17 11:12 White Blood Count 7.4 Red Blood Count 3.76 L Hemoglobin 8.8 L Hematocrit 29.7 L Mean Corpuscular Volume 79.0 L Mean Corpuscular Hemoglobin 23.4 L Mean Corpuscular Hemoglobin Concent 29.6 L Red Cell Distribution Width 21.5 H Platelet Count 308 Mean Platelet Volume 11.6 H Neutrophils % 64.4 Lymphocytes % 20.5 Monocytes % 5.9 Eosinophils % 8.0 H Basophils % 0.7 Nucleated Red Blood Cells % 0.0 Neutrophils # 4.8 Lymphocytes # 1.5 Monocytes # 0.4 Eosinophils # 0.6 H Basophils # 0.1 Nucleated Red Blood Cells # 0.0 Sodium Level 146 H Potassium Level 3.8 Chloride Level 112 H Carbon Dioxide Level 24 Anion Gap 14 Blood Urea Nitrogen 13 Creatinine 0.45 Glucose Level 115 Calcium Level 9.1 Phosphorus Level 3.4 Magnesium Level 2.0 Bedside Glucose 131 127 117 Medications Medications Current Medications Ondansetron HCl (Zofran Inj) 4 mg Q6H PRN IV NAUSEA AND/OR VOMITING Last administered on 08/24/17 14:40; Admin Dose 4 MG; Start 08/13/17 at 23:00 Acetaminophen (Tylenol Supp) [address] PAIN LEVEL 1-3 OR FEVER Last administered on 08/14/17 05:38; Admin Dose 650 MG; Start 08/13/17 at 23:00 Morphine Sulfate (morphine) 2 mg Q4H PRN IV PAIN LEVEL 7-10 Last administered on 08/19/17 02:16; Admin Dose 2 MG; Start 08/13/17 at 23:00 Ascorbic Acid (Vitamin C) 500 mg DAILY GTB Last administered on 08/27/17 09: 19; Admin Dose 500 MG; Start 08/14/17 at 09:00 Clopidogrel Bisulfate (plaVIX) 75 mg DAILY GTB Last administered on 08/27/17 09:19; Admin Dose 75 MG; Start 08/14/17 at 09:00 Zinc Sulfate (Zinc Sulfate) 220 mg DAILY GTB Last administered on 08/27/17 09 :20; Admin Dose 220 MG; Start 08/14/17 at 09:00 Miscellaneous Information 1 ea NOTE XX ; Start 08/14/17 at 00:30 Glucose (Glutose) 15 gm Q15M PRN PO DECREASED GLUCOSE; Start 08/14/17 at 00:30 Glucose (Glutose) 22.5 gm Q15M PRN PO DECREASED GLUCOSE; Start 08/14/17 at 00: 30 Dextrose (D50w Syringe) 25 ml Q15M PRN IV DECREASED GLUCOSE; Start 08/14/17 at 00:30 Dextrose (D50w Syringe) 50 ml Q15M PRN IV DECREASED GLUCOSE; Start 08/14/17 at 00:30 Glucagon (Glucagen) 1 mg Q15M PRN IM DECREASED GLUCOSE; Start 08/14/17 at 00: 30 Glucose (Glutose) 15 gm Q15M PRN BUCCAL DECREASED GLUCOSE; Start 08/14/17 at 00:30 Bisacodyl (Dulcolax) 10 mg DAILY PRN PO CONSTIPATION Last administered on 13:58; Admin Dose 10 MG; Start 08/14/17 at 14:00 Losartan Potassium (Cozaar) 100 mg QHS GTB Last administered on 08/27/17 20: 25; Admin Dose 100 MG; Start 08/14/17 at 21:00 Magnesium Hydroxide (Milk Of Mag) 30 ml DAILY PRN GTB CONSTIPATION Last administered on 08/18/17 08:48; Admin Dose 30 ML; Start 08/14/17 at 14:00 Miscellaneous Information (Pending Santyl Order For Wound Care) This patient valenzuela... PRN PRN XX WOUND CARE; Start 08/14/17 at 14:30 Lansoprazole (Prevacid) 30 mg DAILY@06 GTB Last administered on 08/27/17 05: 22; Admin Dose 30 MG; Start 08/15/17 at 06:00 Collagenase (Santyl) 1 applic DAILY TOP Last administered on 08/28/17 09:09; Admin Dose 1 APPLIC; Start 08/15/17 at 15:00 Insulin Aspart NOVOLOG *MILD* ALGORI... Q4 SC Last administered on 08/27/17 17:54; Admin Dose 1 UNIT; Start 08/16/17 at 05:00 Fentanyl (Sublimaze) 100 ml @ 2.5 mls/hr TITRATE IV Last administered on 22:43; Admin Dose 5 MLS/HR; Start 08/16/17 at 16:00 Polyethylene Glycol (Miralax) 17 gm DAILY GTB Last administered on 08/24/17 08 :42; Admin Dose 17 GM; Start 08/18/17 at 12:30; Status Future Hold Insulin Detemir (Levemir) 21 unit DAILY SC Last administered on 08/28/17 09: 10; Admin Dose 14 UNIT; Start 08/21/17 at 09:00 Hydralazine HCl 10 mg 10 mg Q4H PRN IV ELEVATED BLOOD PRESSURE Last administered on 08/27/17 21:21; Admin Dose 10 MG; Start 08/20/17 at 21:30 Levetiracetam (Keppra 500 Mg/ 100ml (Pmx)) 100 ml @ 400 mls/hr Q12 IVPB Last administered on 08/28/17 09:09; Admin Dose 400 MLS/HR; Start 08/20/17 at 21:30 LUDA MORENO MD Aug 28, 2017 11:33
[2017-08-28] MEDS ORDERED: ETOMIDATE 20 MG INJ ONE (13:45)
[2017-08-28] MEDS ORDERED: ROCURONIUM 50 MG INJ ONE (13:45)
[2017-08-28] MEDS ORDERED: PROPOFOL 20 ML ONE (13:45)
--- NOTE | 2017-08-28 14:50 | OPR ---
Date/Time of Note Date/Time of Note DATE: 08/28/17 TIME: 14:47 Operative Report Procedure Date: Aug 28, 2017 Preoperative Diagnosis Resp Failure Postoperative Diagnosis same Operation/Procedure Performed Tracheostomy Surgeon see signature line Pecan Sheller no Anesthesia Type: general Estimated Blood Loss: none Transfusion none Specimen none Grafts/Implants none Complications none Procedure Description dictated CHRISTY PIERCE MD Aug 28, 2017 14:50
[2017-08-28] MEDS: hydrALAzine 20 MG INJ IV PRN (14:54)
[2017-08-28] MEDS: morphine 2 MG INJ IV PRN ×2 (15:15→16:16)
--- NOTE | 2017-08-28 20:35 | OPR ---
DATE OF OPERATION: PREOPERATIVE DIAGNOSIS: Respiratory failure. POSTOPERATIVE DIAGNOSIS: Respiratory failure. PROCEDURE: Tracheostomy. SURGEON: Christy Mcdaniel MD ANESTHESIA: General. CONSENT: Risks, benefits, complications and alternative therapies explained to the patient's family and consent obtained. OPERATIVE TECHNIQUE: The patient was placed in the supine position, prepped and draped in usual citlalli rile fashion. Timeout was called. Antibiotic was given. I made a 2 cm incision 1 cm superior to t he sternal notch. The incision was taken down to the subcutaneous tissue which was then opened usin g Metzenbaum scissors. Access was gained into the trachea. Guidewire was advanced through without any difficulty. The trachea and the subcutaneous tissues were dilated using progressively larger di lators. Endotracheal tube was removed. An 8 cuffed tracheostomy tube was advanced into the trachea , secured to the skin using 4-0 nylon sutures in a soft fashion and a trach tie. The patient tolera maame the procedure well. Dictated By: CHRISTY MCDANIEL MD FM/ERENDIRA Conf#: [id number] DID#: [id number] CC: JOE JIMENES MD;*EndCC*
[2017-08-28] MEDS: LEVETIRACETAM 500 MG TAB PO SCH (22:00)
[2017-08-28] MEDS: LOSARTAN 50 MG TAB GTB SCH (22:08)
[2017-08-29] VITALS (36 sets, daily range): BP systolic 103–166; BP diastolic 45–69; PULSE 69–102; RESP 15–28
[2017-08-29] MEDS: hydrALAzine 20 MG INJ IV PRN ×2 (00:37→07:08)
[2017-08-29] MEDS: INSULIN ASPART [NOVOLOG] 3 ML PEN SC SCH ×6 (01:00→22:16)
[2017-08-29] MEDS: LANSOPRAZOLE 30 MG CAP GTB SCH (05:48)
[2017-08-29 06:08] LABS: BASOPHILS % 0.5 % (0.0-2.0); EOSINOPHILS # 0.5 10^3/ul (0.0-0.5); EOSINOPHILS % 5.9 % (0.0-7.0); HEMATOCRIT 28.6 % (37.0-47.0); HEMOGLOBIN 8.7 g/dl (12.0-16.0); LYMPHOCYTES # 2.2 10^3/ul (0.8-2.9); LYMPHOCYTES % 28.4 % (15.0-51.0); MEAN CORPUSCULAR HEMOGLOBIN 23.9 pg (29.0-33.0); MEAN CORPUSCULAR HGB CONC 30.4 g/dl (32.0-37.0); MEAN CORPUSCULAR VOLUME 78.6 fl (82.0-101.0); MEAN PLATELET VOLUME 11.4 fl (7.4-10.4); MONOCYTE # 0.5 10^3/ul (0.3-0.9); MONOCYTES % 5.9 % (0.0-11.0); NEUTROPHIL # 4.5 10^3/ul (1.6-7.5); NEUTROPHILS % 58.9 % (39.0-77.0); PLATELET COUNT 309 10^3/UL (140-415); RED BLOOD COUNT 3.64 10^6/ul (4.20-5.40); RED CELL DISTRIBUTION WIDTH 21.4 % (11.5-14.5); WHITE BLOOD COUNT 7.6 10^3/ul (4.8-10.8)
[2017-08-29 06:30] LABS: CALCIUM 8.9 mg/dl (8.4-10.2); CREATININE 0.55 mg/dl (0.44-1.00); POTASSIUM 3.2 mmol/L (3.5-5.1)
[2017-08-29] MEDS: LEVETIRACETAM 500 MG TAB PO SCH ×2 (09:08→21:59)
[2017-08-29] MEDS: CLOPIDOGREL 75 MG TAB GTB SCH (09:08)
[2017-08-29] MEDS: ZINC SULFATE 220 MG CAP GTB SCH (09:08)
[2017-08-29] MEDS: ASCORBIC ACID 500 MG TAB GTB SCH (09:08)
[2017-08-29] MEDS: INSULIN DETEMIR [LEVEMIR] 3ML CART SC SCH (09:17)
[2017-08-29] MEDS: COLLAGENASE 30 GM TUBE TOP SCH (09:22)
--- NOTE | 2017-08-29 09:45 | CONS ---
Date/Time of Note Date/Time of Note DATE: 08/29/17 TIME: 09:43 Consult Date/Type/Reason Admit Date/Time Aug 13, 2017 at 22:40 Initial Consult Date 08/14/17 Type of Consultation: Pulmonary Subjective Patient comfortable following tracheostomy. Opens eyes makes eye contact. Remains hemodynamically stable. No respiratory distress. Objective Vital Signs Date Time Temp Pulse Resp B/P Pulse Ox O2 Delivery O2 Flow Rate FiO2 08/29/17 09:19 96 16 100 30 08/29/17 07:00 166/54 Mechanical Ventilator 08/29/17 04:00 97.9 Intake and Output 08/28/17 08/28/17 08/29/17 15:00 23:00 07:00 Intake Total 150 ml 120 ml 680 ml Output Total 237 ml 365 ml 315 ml Balance -87 ml -245 ml 365 ml Exam PHYSICAL EXAMINATION GENERAL: Elderly lady comfortable on mechanical ventilation via new tracheostomy. VITAL SIGNS: see below. HEENT: Pupils equal, round, and reactive to light. Tracheostomy site clean and intact. CARDIAC: S1, S2, 1/6 systolic ejection murmur CHEST: Diminished air entry bilaterally. ABDOMEN: Mildly distended. Bowel sounds present no guarding or rebound EXTREMITIES: No cyanosis, clubbing edema +1 NEUROLOGIC: Generalized weakness Results/Medications Result Diagram: 08/29/17 0500 08/29/17 0500 Results 24 hrs Laboratory Tests Test 08/28/17 11:12 08/28/17 12:35 08/28/17 17:29 08/28/17 22:14 Bedside Glucose 117 138 94 104 Test 08/29/17 01:05 08/29/17 05:00 08/29/17 05:21 08/29/17 09:15 Bedside Glucose 136 138 240 H White Blood Count 7.6 Red Blood Count 3.64 L Hemoglobin 8.7 L Hematocrit 28.6 L Mean Corpuscular Volume 78.6 L Mean Corpuscular Hemoglobin 23.9 L Mean Corpuscular Hemoglobin Concent 30.4 L Red Cell Distribution Width 21.4 H Platelet Count 309 Mean Platelet Volume 11.4 H Neutrophils % 58.9 Lymphocytes % 28.4 Monocytes % 5.9 Eosinophils % 5.9 Basophils % 0.5 Nucleated Red Blood Cells % 0.0 Neutrophils # 4.5 Lymphocytes # 2.2 Monocytes # 0.5 Eosinophils # 0.5 Basophils # 0.0 Nucleated Red Blood Cells # 0.0 Sodium Level 144 Potassium Level 3.2 L Chloride Level 112 H Carbon Dioxide Level 24 Anion Gap 11 Blood Urea Nitrogen 14 Creatinine 0.55 Glucose Level 144 Calcium Level 8.9 Medications Current Medications Ondansetron HCl (Zofran Inj) 4 mg Q6H PRN IV NAUSEA AND/OR VOMITING Last administered on 08/24/17 14:40; Admin Dose 4 MG; Start 08/13/17 at 23:00 Acetaminophen (Tylenol Supp) 650 mg Q4H PRN [place] PAIN LEVEL 1-3 OR FEVER Last administered on 08/14/17 05:38; Admin Dose 650 MG; Start 08/13/17 at 23:00 Morphine Sulfate (morphine) 2 mg Q4H PRN IV PAIN LEVEL 7-10 Last administered on 08/28/17 15:15; Admin Dose 2 MG; Start 08/13/17 at 23:00 Ascorbic Acid (Vitamin C) 500 mg DAILY GTB Last administered on 08/29/17 09: 08; Admin Dose 500 MG; Start 08/14/17 at 09:00 Clopidogrel Bisulfate (plaVIX) 75 mg DAILY GTB Last administered on 08/29/17 09:08; Admin Dose 75 MG; Start 08/14/17 at 09:00 Zinc Sulfate (Zinc Sulfate) 220 mg DAILY GTB Last administered on 08/29/17 09 :08; Admin Dose 220 MG; Start 08/14/17 at 09:00 Miscellaneous Information 1 ea NOTE XX ; Start 08/14/17 at 00:30 Glucose (Glutose) 15 gm Q15M PRN PO DECREASED GLUCOSE; Start 08/14/17 at 00:30 Glucose (Glutose) 22.5 gm Q15M PRN PO DECREASED GLUCOSE; Start 08/14/17 at 00: 30 Dextrose (D50w Syringe) 25 ml Q15M PRN IV DECREASED GLUCOSE; Start 08/14/17 at 00:30 Dextrose (D50w Syringe) 50 ml Q15M PRN IV DECREASED GLUCOSE; Start 08/14/17 at 00:30 Glucagon (Glucagen) 1 mg Q15M PRN IM DECREASED GLUCOSE; Start 08/14/17 at 00: 30 Glucose (Glutose) 15 gm Q15M PRN BUCCAL DECREASED GLUCOSE; Start 08/14/17 at 00:30 Bisacodyl (Dulcolax) 10 mg DAILY PRN PO CONSTIPATION Last administered on 13:58; Admin Dose 10 MG; Start 08/14/17 at 14:00 Losartan Potassium (Cozaar) 100 mg QHS GTB Last administered on 08/28/17 22: 08; Admin Dose 100 MG; Start 08/14/17 at 21:00 Magnesium Hydroxide (Milk Of Mag) 30 ml DAILY PRN GTB CONSTIPATION Last administered on 08/18/17 08:48; Admin Dose 30 ML; Start 08/14/17 at 14:00 Miscellaneous Information (Pending Santyl Order For Wound Care) This patient valenzuela... PRN PRN XX WOUND CARE; Start 08/14/17 at 14:30 Lansoprazole (Prevacid) 30 mg DAILY@06 GTB Last administered on 08/29/17 05: 48; Admin Dose 30 MG; Start 08/15/17 at 06:00 Collagenase (Santyl) 1 applic DAILY TOP Last administered on 08/29/17 09:22; Admin Dose 1 APPLIC; Start 08/15/17 at 15:00 Insulin Aspart (Novolog Insulin Pen) NOVOLOG *MILD* ALGORI... Q4 SC Last administered on 08/29/17 09:19; Admin Dose 3 UNIT; Start 08/16/17 at 05:00 Polyethylene Glycol (Miralax) 17 gm DAILY GTB Last administered on 08/24/17 08 :42; Admin Dose 17 GM; Start 08/18/17 at 12:30; Status Future Hold Insulin Detemir (Levemir) 21 unit DAILY SC Last administered on 08/29/17 09: 17; Admin Dose 21 UNIT; Start 08/21/17 at 09:00 Hydralazine HCl (Apresoline) 10 mg Q4H PRN IV ELEVATED BLOOD PRESSURE Last administered on 08/29/17 07:08; Admin Dose 10 MG; Start 08/20/17 at 21:30 Levetiracetam (Keppra) 500 mg BID PO Last administered on 08/29/17 09:08; Admin Dose 500 MG; Start 08/28/17 at 21:00 Assessment/Plan Chief Complaint/Hosp Course IMP: 1. Hypoxemic respiratory failure, likely secondary to alveolar hypoventilation and HCAP failed multiple weaning trials now with tracheostomy on mechanical ventilation. 2. History of CVA with advanced dementia. 3. G-Tube Malfxn now stable. 4. Anemia RECS: 1. Vent support 2. Continue tube feeding as tolerated 3. Monitor off antibiotic 4. Monitor H&H 5. DVT and GI prophylaxis Critical care time 40 minutes Transfer to [facility] Problems: CONI FERNANDEZ [facility], [facility] Aug 29, 2017 09:45
--- NOTE | 2017-08-29 16:22 | PN ---
Date/Time of Note Date/Time of Note DATE: 08/29/17 TIME: 16:20 Assessment/Plan VTE Prophylaxis VTE Prophylaxis Intervention: SCD's Lines/Catheters IV Catheter Type (from Nrsg): Central Line Central line still needed: No Urinary Cath still in place: Yes Reason Cath still needed: other (indicate) (bedbound) Assessment/Plan Assessment/Plan 71 yo F with pmhx chronic encephalopathy and dysphagia 2/2 old CVA with chronic g tube admitted for sepsis (tachycardia/fever) possibly 2/2 healthcare associated aspiration pneumonia with ESBL Klebsiella. Hospitalization also notable for GTube malfunction, sp adjustment by GI. sp trach placement 11.13 #hypoxic respiratory failure 2/2 HCAP and failure to wean likely 2/2 chronic dementia sp trach placement 11.13 #Hx CVA, dementia -cont home plavix, keppra, BP meds -cont PEG #DM2 cont inuslin #prophx: DVT prophx, GI prophx while on vent dispo: CM consult for LTAC. likely to [facility]TACT in 1-2 days when bed is available Subjective 24 Hr Interval Summary Free Text/Dictation sp trach yesterday Exam/Review of Systems Vital Signs Vitals Vital Signs Date Time Temp Pulse Resp B/P Pulse Ox O2 Delivery O2 Flow Rate FiO2 08/29/17 16:00 73 08/29/17 15:00 16 124/64 100 Mechanical Ventilator 08/29/17 13:32 30 08/29/17 12:00 99.2 Intake and Output 08/28/17 08/28/17 08/29/17 15:00 23:00 07:00 Intake Total 150 ml 120 ml 680 ml Output Total 237 ml 365 ml 315 ml Balance -87 ml -245 ml 365 ml Exam nad trach site c/d/i no mrg lungs clear abd soft Results Result Diagram: 08/29/17 0500 08/29/17 0500 Results 24 hrs Laboratory Tests Test 08/28/17 17:29 08/28/17 22:14 08/29/17 01:05 08/29/17 05:00 Bedside Glucose 94 104 136 White Blood Count 7.6 Red Blood Count 3.64 L Hemoglobin 8.7 L Hematocrit 28.6 L Mean Corpuscular Volume 78.6 L Mean Corpuscular Hemoglobin 23.9 L Mean Corpuscular Hemoglobin Concent 30.4 L Red Cell Distribution Width 21.4 H Platelet Count 309 Mean Platelet Volume 11.4 H Neutrophils % 58.9 Lymphocytes % 28.4 Monocytes % 5.9 Eosinophils % 5.9 Basophils % 0.5 Nucleated Red Blood Cells % 0.0 Neutrophils # 4.5 Lymphocytes # 2.2 Monocytes # 0.5 Eosinophils # 0.5 Basophils # 0.0 Nucleated Red Blood Cells # 0.0 Sodium Level 144 Potassium Level 3.2 L Chloride Level 112 H Carbon Dioxide Level 24 Anion Gap 11 Blood Urea Nitrogen 14 Creatinine 0.55 Glucose Level 144 Calcium Level 8.9 Test 08/29/17 05:21 08/29/17 09:15 08/29/17 13:42 Bedside Glucose 138 240 H 148 Medications Medications Current Medications Ondansetron HCl (Zofran Inj) 4 mg Q6H PRN IV NAUSEA AND/OR VOMITING Last administered on 08/24/17 14:40; Admin Dose 4 MG; Start 08/13/17 at 23:00 Acetaminophen (Tylenol Supp) 650 mg Q4H PRN [place] PAIN LEVEL 1-3 OR FEVER Last administered on 08/14/17 05:38; Admin Dose 650 MG; Start 08/13/17 at 23:00 Morphine Sulfate (morphine) 2 mg Q4H PRN IV PAIN LEVEL 7-10 Last administered on 08/28/17 15:15; Admin Dose 2 MG; Start 08/13/17 at 23:00 Ascorbic Acid (Vitamin C) 500 mg DAILY GTB Last administered on 08/29/17 09: 08; Admin Dose 500 MG; Start 08/14/17 at 09:00 Clopidogrel Bisulfate (plaVIX) 75 mg DAILY GTB Last administered on 08/29/17 09:08; Admin Dose 75 MG; Start 08/14/17 at 09:00 Zinc Sulfate (Zinc Sulfate) 220 mg DAILY GTB Last administered on 08/29/17 09 :08; Admin Dose 220 MG; Start 08/14/17 at 09:00 Miscellaneous Information 1 ea NOTE XX ; Start 08/14/17 at 00:30 Glucose (Glutose) 15 gm Q15M PRN PO DECREASED GLUCOSE; Start 08/14/17 at 00:30 Glucose (Glutose) 22.5 gm Q15M PRN PO DECREASED GLUCOSE; Start 08/14/17 at 00: 30 Dextrose (D50w Syringe) 25 ml Q15M PRN IV DECREASED GLUCOSE; Start 08/14/17 at 00:30 Dextrose (D50w Syringe) 50 ml Q15M PRN IV DECREASED GLUCOSE; Start 08/14/17 at 00:30 Glucagon (Glucagen) 1 mg Q15M PRN IM DECREASED GLUCOSE; Start 08/14/17 at 00: 30 Glucose (Glutose) 15 gm Q15M PRN BUCCAL DECREASED GLUCOSE; Start 08/14/17 at 00:30 Bisacodyl (Dulcolax) 10 mg DAILY PRN PO CONSTIPATION Last administered on 13:58; Admin Dose 10 MG; Start 08/14/17 at 14:00 Losartan Potassium (Cozaar) 100 mg QHS GTB Last administered on 08/28/17 22: 08; Admin Dose 100 MG; Start 08/14/17 at 21:00 Magnesium Hydroxide (Milk Of Mag) 30 ml DAILY PRN GTB CONSTIPATION Last administered on 08/18/17 08:48; Admin Dose 30 ML; Start 08/14/17 at 14:00 Miscellaneous Information (Pending Santyl Order For Wound Care) This patient valenzuela... PRN PRN XX WOUND CARE; Start 08/14/17 at 14:30 Lansoprazole (Prevacid) 30 mg DAILY@06 GTB Last administered on 08/29/17 05: 48; Admin Dose 30 MG; Start 08/15/17 at 06:00 Collagenase (Santyl) 1 applic DAILY TOP Last administered on 08/29/17 09:22; Admin Dose 1 APPLIC; Start 08/15/17 at 15:00 Insulin Aspart (Novolog Insulin Pen) NOVOLOG *MILD* ALGORI... Q4 SC Last administered on 08/29/17 13:43; Admin Dose 1 UNIT; Start 08/16/17 at 05:00 Polyethylene Glycol (Miralax) 17 gm DAILY GTB Last administered on 08/24/17 08 :42; Admin Dose 17 GM; Start 08/18/17 at 12:30; Status Future Hold Insulin Detemir (Levemir) 21 unit DAILY SC Last administered on 08/29/17 09: 17; Admin Dose 21 UNIT; Start 08/21/17 at 09:00 Hydralazine HCl (Apresoline) 10 mg Q4H PRN IV ELEVATED BLOOD PRESSURE Last administered on 08/29/17 07:08; Admin Dose 10 MG; Start 08/20/17 at 21:30 Levetiracetam (Keppra) 500 mg BID PO Last administered on 08/29/17 09:08; Admin Dose 500 MG; Start 08/28/17 at 21:00 LUDA MORENO MD Aug 29, 2017 16:22
--- NOTE | 2017-08-29 17:00 | PN ---
Date/Time of Note Date/Time of Note DATE: 08/29/17 TIME: 16:59 Assessment/Plan Lines/Catheters IV Catheter Type (from Nrsg): Central Line Lane in Place (from Nrsg): Yes Assessment/Plan Chief Complaint/Hosp Course IMPRESSION: 1. Hypoxic respiratory failure secondary to albuterol hypoventilation. 2. History of cerebrovascular accident. SP Tracheostomy Will continue supp care vent support trach care Problems: Subjective 24 Hr Interval Summary Constitutional: improved Pain Control: mild Exam/Review of Systems Vital Signs Vitals Vital Signs Date Time Temp Pulse Resp B/P Pulse Ox O2 Delivery O2 Flow Rate FiO2 08/29/17 16:00 73 08/29/17 16:00 98.4 16 135/52 100 Mechanical Ventilator 08/29/17 15:18 30 Intake and Output 08/28/17 08/28/17 08/29/17 14:59 22:59 06:59 Intake Total 200 ml 60 ml 680 ml Output Total 302 ml 350 ml 325 ml Balance -102 ml -290 ml 355 ml Exam ENMT: mucosa pink and moist, nl external ears & nose, nl lips & teeth, nl nasal mucosa & septum Neck: non-tender, supple Respiratory: clear to auscultation, normal air movement Cardiovascular: nl pulses, regular rate and rhythm Results Result Diagram: 08/29/17 0500 08/29/17 0500 CHRISTY PIERCE MD Aug 29, 2017 17:00
[2017-08-29] MEDS: LOSARTAN 50 MG TAB GTB SCH (22:00)
[2017-08-30] VITALS (37 sets, daily range): BP systolic 123–194; BP diastolic 51–90; PULSE 62–88; RESP 14–19
[2017-08-30] MEDS: INSULIN ASPART [NOVOLOG] 3 ML PEN SC SCH ×6 (00:45→20:25)
[2017-08-30 05:11] LABS: BASOPHIL # 0.1 10^3/ul (0.0-0.1); BASOPHILS % 0.6 % (0.0-2.0); EOSINOPHILS # 0.6 10^3/ul (0.0-0.5); HEMATOCRIT 27.6 % (37.0-47.0); HEMOGLOBIN 8.3 g/dl (12.0-16.0); LYMPHOCYTES # 1.9 10^3/ul (0.8-2.9); LYMPHOCYTES % 21.2 % (15.0-51.0); MEAN CORPUSCULAR HEMOGLOBIN 23.6 pg (29.0-33.0); MEAN CORPUSCULAR HGB CONC 30.1 g/dl (32.0-37.0); MEAN CORPUSCULAR VOLUME 78.6 fl (82.0-101.0); MEAN PLATELET VOLUME 11.5 fl (7.4-10.4); MONOCYTE # 0.7 10^3/ul (0.3-0.9); MONOCYTES % 7.6 % (0.0-11.0); NEUTROPHIL # 5.7 10^3/ul (1.6-7.5); NEUTROPHILS % 63.2 % (39.0-77.0); PLATELET COUNT 290 10^3/UL (140-415); RED BLOOD COUNT 3.51 10^6/ul (4.20-5.40); RED CELL DISTRIBUTION WIDTH 21.2 % (11.5-14.5)
[2017-08-30] MEDS: LANSOPRAZOLE 30 MG CAP GTB SCH (05:13)
[2017-08-30 05:40] LABS: CALCIUM 9.1 mg/dl (8.4-10.2); CREATININE 0.51 mg/dl (0.44-1.00); POTASSIUM 3.2 mmol/L (3.5-5.1)
[2017-08-30] MEDS: POTASSIUM CHLORIDE 50 ML IVPB PRN ×3 (06:06→09:52)
[2017-08-30] MEDS: ZINC SULFATE 220 MG CAP GTB SCH (08:27)
[2017-08-30] MEDS: CLOPIDOGREL 75 MG TAB GTB SCH (08:27)
[2017-08-30] MEDS: LEVETIRACETAM 500 MG TAB PO SCH ×2 (08:27→20:26)
[2017-08-30] MEDS: ASCORBIC ACID 500 MG TAB GTB SCH (08:27)
[2017-08-30] MEDS: INSULIN DETEMIR [LEVEMIR] 3ML CART SC SCH (08:29)
[2017-08-30] MEDS: COLLAGENASE 30 GM TUBE TOP SCH (08:32)
[2017-08-30] MEDS: hydrALAzine 20 MG INJ IV PRN (09:55)
--- NOTE | 2017-08-30 10:53 | CONS ---
Date/Time of Note Date/Time of Note DATE: 08/30/17 TIME: 10:52 Consult Date/Type/Reason Admit Date/Time Aug 13, 2017 at 22:40 Initial Consult Date 08/14/17 Type of Consultation: Pulmonary Subjective No significant changes. Patient remains comfortable following tracheostomy. Objective Vital Signs Date Time Temp Pulse Resp B/P Pulse Ox O2 Delivery O2 Flow Rate FiO2 08/30/17 10:00 77 14 176/76 100 Mechanical Ventilator 08/30/17 09:09 30 08/30/17 07:00 98.5 Intake and Output 08/29/17 08/29/17 08/30/17 15:00 23:00 07:00 Intake Total 480 ml 400 ml 320 ml Output Total 500 ml 180 ml 130 ml Balance -20 ml 220 ml 190 ml Exam PHYSICAL EXAMINATION GENERAL: Elderly lady comfortable on mechanical ventilation via new tracheostomy. VITAL SIGNS: see below. HEENT: Pupils equal, round, and reactive to light. Tracheostomy site clean and intact. CARDIAC: S1, S2, 1/6 systolic ejection murmur CHEST: Diminished air entry bilaterally. ABDOMEN: Mildly distended. Bowel sounds present no guarding or rebound EXTREMITIES: No cyanosis, clubbing edema +1 NEUROLOGIC: Generalized weakness Results/Medications Result Diagram: 08/30/17 0432 08/30/17 0432 Results 24 hrs Laboratory Tests Test 08/29/17 13:42 08/29/17 18:08 08/29/17 22:00 08/30/17 00:41 Bedside Glucose 148 147 141 134 Test 08/30/17 04:32 08/30/17 05:12 08/30/17 08:26 White Blood Count 9.0 Red Blood Count 3.51 L Hemoglobin 8.3 L Hematocrit 27.6 L Mean Corpuscular Volume 78.6 L Mean Corpuscular Hemoglobin 23.6 L Mean Corpuscular Hemoglobin Concent 30.1 L Red Cell Distribution Width 21.2 H Platelet Count 290 Mean Platelet Volume 11.5 H Neutrophils % 63.2 Lymphocytes % 21.2 Monocytes % 7.6 Eosinophils % 7.0 Basophils % 0.6 Nucleated Red Blood Cells % 0.0 Neutrophils # 5.7 Lymphocytes # 1.9 Monocytes # 0.7 Eosinophils # 0.6 H Basophils # 0.1 Nucleated Red Blood Cells # 0.0 Sodium Level 145 H Potassium Level 3.2 L Chloride Level 110 Carbon Dioxide Level 26 Anion Gap 12 Blood Urea Nitrogen 16 Creatinine 0.51 Glucose Level 147 Calcium Level 9.1 Bedside Glucose 138 160 Medications Current Medications Ondansetron HCl (Zofran Inj) 4 mg Q6H PRN IV NAUSEA AND/OR VOMITING Last administered on 08/24/17 14:40; Admin Dose 4 MG; Start 08/13/17 at 23:00 Acetaminophen (Tylenol Supp) 650 mg Q4H PRN VT PAIN LEVEL 1-3 OR FEVER Last administered on 08/14/17 05:38; Admin Dose 650 MG; Start 08/13/17 at 23:00 Morphine Sulfate (morphine) 2 mg Q4H PRN IV PAIN LEVEL 7-10 Last administered on 08/28/17 15:15; Admin Dose 2 MG; Start 08/13/17 at 23:00 Ascorbic Acid (Vitamin C) 500 mg DAILY GTB Last administered on 08/30/17 08: 27; Admin Dose 500 MG; Start 08/14/17 at 09:00 Clopidogrel Bisulfate (plaVIX) 75 mg DAILY GTB Last administered on 08/30/17 08:27; Admin Dose 75 MG; Start 08/14/17 at 09:00 Zinc Sulfate (Zinc Sulfate) 220 mg DAILY GTB Last administered on 08/30/17 08 :27; Admin Dose 220 MG; Start 08/14/17 at 09:00 Miscellaneous Information 1 ea NOTE XX ; Start 08/14/17 at 00:30 Glucose (Glutose) 15 gm Q15M PRN PO DECREASED GLUCOSE; Start 08/14/17 at 00:30 Glucose (Glutose) 22.5 gm Q15M PRN PO DECREASED GLUCOSE; Start 08/14/17 at 00: 30 Dextrose (D50w Syringe) 25 ml Q15M PRN IV DECREASED GLUCOSE; Start 08/14/17 at 00:30 Dextrose (D50w Syringe) 50 ml Q15M PRN IV DECREASED GLUCOSE; Start 08/14/17 at 00:30 Glucagon (Glucagen) 1 mg Q15M PRN IM DECREASED GLUCOSE; Start 08/14/17 at 00: 30 Glucose (Glutose) 15 gm Q15M PRN BUCCAL DECREASED GLUCOSE; Start 08/14/17 at 00:30 Bisacodyl (Dulcolax) 10 mg DAILY PRN PO CONSTIPATION Last administered on 13:58; Admin Dose 10 MG; Start 08/14/17 at 14:00 Losartan Potassium (Cozaar) 100 mg QHS GTB Last administered on 08/29/17 22: 00; Admin Dose 100 MG; Start 08/14/17 at 21:00 Magnesium Hydroxide (Milk Of Mag) 30 ml DAILY PRN GTB CONSTIPATION Last administered on 08/18/17 08:48; Admin Dose 30 ML; Start 08/14/17 at 14:00 Miscellaneous Information (Pending Santyl Order For Wound Care) This patient valenzuela... PRN PRN XX WOUND CARE; Start 08/14/17 at 14:30 Lansoprazole (Prevacid) 30 mg DAILY@06 GTB Last administered on 08/30/17 05: 13; Admin Dose 30 MG; Start 08/15/17 at 06:00 Collagenase (Santyl) 1 applic DAILY TOP Last administered on 08/30/17 08:32; Admin Dose 1 APPLIC; Start 08/15/17 at 15:00 Insulin Aspart (Novolog Insulin Pen) NOVOLOG *MILD* ALGORI... Q4 SC Last administered on 08/30/17 08:29; Admin Dose 1 UNIT; Start 08/16/17 at 05:00 Polyethylene Glycol (Miralax) 17 gm DAILY GTB Last administered on 08/24/17 08 :42; Admin Dose 17 GM; Start 08/18/17 at 12:30; Status Future Hold Insulin Detemir (Levemir) 21 unit DAILY SC Last administered on 08/30/17 08: 29; Admin Dose 21 UNIT; Start 08/21/17 at 09:00 Hydralazine HCl (Apresoline) 10 mg Q4H PRN IV ELEVATED BLOOD PRESSURE Last administered on 08/30/17 09:55; Admin Dose 10 MG; Start 08/20/17 at 21:30 Levetiracetam (Keppra) 500 mg BID PO Last administered on 08/30/17 08:27; Admin Dose 500 MG; Start 08/28/17 at 21:00 Assessment/Plan Chief Complaint/Hosp Course IMP: 1. Hypoxemic respiratory failure, likely secondary to alveolar hypoventilation and HCAP failed multiple weaning trials now with tracheostomy on mechanical ventilation. 2. History of CVA with advanced dementia. 3. G-Tube Malfxn now stable. 4. Anemia RECS: 1. Vent support 2. Continue tube feeding as tolerated 3. Monitor off antibiotic 4. Monitor H&H 5. DVT and GI prophylaxis 6. DC central line placement line. Critical care time 40 minutes Transfer to [place] Problems: CONI FERNANDEZ MD, [facility] Aug 30, 2017 10:53
--- NOTE | 2017-08-30 13:48 | PN ---
Date/Time of Note Date/Time of Note DATE: 08/30/17 TIME: 13:48 Assessment/Plan Lines/Catheters IV Catheter Type (from Nrsg): Peripheral IV Lane in Place (from Nrsg): Yes Assessment/Plan Chief Complaint/Hosp Course IMPRESSION: 1. Hypoxic respiratory failure secondary to albuterol hypoventilation. 2. History of cerebrovascular accident. SP Tracheostomy Will continue supp care vent support trach care Problems: Subjective 24 Hr Interval Summary Constitutional: improved Pain Control: mild Exam/Review of Systems Vital Signs Vitals Vital Signs Date Time Temp Pulse Resp B/P Pulse Ox O2 Delivery O2 Flow Rate FiO2 08/30/17 13:04 89 16 100 30 08/30/17 13:00 146/62 Mechanical Ventilator 08/30/17 07:00 98.5 Intake and Output 08/29/17 08/29/17 08/30/17 15:00 23:00 07:00 Intake Total 480 ml 400 ml 320 ml Output Total 500 ml 180 ml 130 ml Balance -20 ml 220 ml 190 ml Exam ENMT: mucosa pink and moist, nl external ears & nose, nl lips & teeth, nl nasal mucosa & septum Neck: non-tender, supple Respiratory: clear to auscultation, normal air movement Cardiovascular: nl pulses, regular rate and rhythm Results Result Diagram: 08/30/17 0432 08/30/17 043 CHRISTY PIERCE MD Aug 30, 2017 13:48
--- NOTE | 2017-08-30 14:20 | DS ---
Date/Time of Note Date/Time of Note DATE: 08/30/17 TIME: 14:19 Discharge Summary Admission/Discharge Info Admit Date/Time Aug 13, 2017 at 22:40 Discharge Date/Time Discharge Diagnosis hypoxic respiratory healthcare associated pneumonia, inability to be weaned from ventilator 2/2 dementia and hx of stroke, g tube malfunction warranting readjustment Patient Condition: Guarded Consults surgery, pulmonary, palliative care, GI Procedures tracheostomy placement 11.13 10.30 sputum culture Microbiology GRAM STAIN Final POLYMORPH. LEUKOCYTE RARE EPITHELIAL CELLS RARE . NO ORGANISM SEEN RESPIRATORY CULTURE Final Organism 1 K PNEUMO ESBL QUANTITY RARE . MULTI DRUG RESISTANT ORGANISM Organism 2 PILAR ALBICANS QUANTITY SCANT GROWTH PHONED TO NALDO CHRISTY,MARTHA,PHARM, AND COPY TO I.CSilvia, AT 0919, 08/17/17, HN. VIKTORIYA PNEUM [facility] RX --------- --- AMIKACIN <=2 S CEFAZOLIN R CEFEPIME 2 S CEFOTAXIME R CIPROFLOXACIN >=4 R GENTAMICIN >=16 R IMIPENEM <=0.25 S LEVOFLOXACIN >=8 R TOBRAMYCIN >=16 R TRIMETHOPRIM/SULFAMETHOXAZOLE >=320 R PIPERACILLIN/TAZOBACTAM 16 S Hx of Present Illness This is a 71-year-old female with a history of CVA, respiratory failure with history of prior trach, hypertension, dysphagia with G-tube for feeding who was sent from SNF for shortness of breath. Patient is nonverbal and does not follow commands and as such information is gathered from chart review and from the ER physician. When she presented to the ER, she was short of breath with increased work of breathing and was very lethargic. Shortly after arrival to the ER, patient was intubated. She had a temp of 102.7 when she was in the ER. Her initial BP was 235/106 with a heart rate of 129. Labs shows WBC of 15,000, lactate 2.6 which trended up to 4.5, glucose 319. UA without UTI and a chest x-ray showed no acute findings. Initial ABG showed a pH of 7.47, PCO2 41, PO2 474, bicarb 29 on 100% of FiO2 while she was on the vent. . Hospital Course 71 yo F with pmhx chronic encephalopathy/dementia and dysphagia 2/2 old CVA with chronic g tube admitted for sepsis (tachycardia/fever) 2/2 healthcare associated aspiration pneumonia with ESBL Klebsiella. Pt completed a course of pathogen-directed abx for her lung infection. Hospitalization also notable for GTube malfunction, sp adjustment by GI. Sp trach placement 08.28 for failure to wean from ventilator after discussion with family. Pt is being discharged to [facility] for continued vent weaning. Home meds for hx CVA and dementia were continued, insulin dose was decreased 2/2 hypoglycemia. Home Meds Reported Medications Tramadol HCl (Tramadol HCl) 50 Mg Tablet, 50 MG GTB Q8H Y for PAIN LEVEL 6-10, # 120 TAB 06/19/17 Bisacodyl* (Dulcolax*) 5 Mg Tablet.dr, 10 MG PO DAILY Y for CONSTIPATION, TAB 06/19/17 Acetaminophen* (Acetaminophen*) 650 Mg Tablet, 650 MG PO Q4 Y for PAIN AND OR ELEVATED TEMP, #30 TAB 06/19/17 Magnesium Hydroxide* (Milk Of Magnesia*) 400 Mg/5 Ml Oral.susp, 30 ML GTB DAILY Y for CONSTIPATION, ML 06/19/17 Ipratropium-Albuterol (Ipratropium-Albuterol) 0.5-3 Mg/3 Ml Ampul.neb, 3 ML INHALATION Q4 Y for SHORTNESS OF BREATH, #30 VIAL 06/19/17 Clonidine Hcl* (Clonidine Hcl*) 0.1 Mg Tab, 0.1 MG GTB Q6 Y for ELEVATED BLOOD PRESSURE, TAB 06/19/17 Insulin Detemir (Levemir Flextouch) 100 Unit/1 Ml Insuln.pen, 40 UNIT SQ WITH BREAKFAST 06/19/17 Levetiracetam* (Keppra*) 500 Mg/5 Ml Solution, 500 MG GTB BID, BOTTLE 06/19/17 Tramadol HCl (Tramadol HCl) 50 Mg Tablet, 50 MG GTB Q12, #60 TAB 06/19/17 Zinc Sulfate* (Zinc Sulfate*) 220 Mg Tablet, 220 MG GTB DAILY, TAB 06/19/17 Ascorbic Acid* (Vitamin C*) 500 Mg Capsule.sa, 500 MG GTB DAILY, CAP 06/19/17 Clopidogrel Bisulfate (Clopidogrel) 75 Mg Tablet, 75 MG GTB DAILY, #30 TAB 06/19/17 Cephalexin* (Cephalexin*) 500 Mg Capsule, 500 MG GTB Q6, #28 CAP 06/19/17 Losartan Potassium* (Cozaar*) 100 Mg Tablet, 100 MG GTB QHS, #30 TAB 06/19/17 Follow-up Plan LTAC for vent weaning Primary Care Provider Not On Staff Doctor Time spent on discharge: > 30 minutes Pending Labs Laboratory Tests Test 08/29/17 18:08 08/29/17 22:00 08/30/17 00:41 08/30/17 04:32 Bedside Glucose 147mg/dL (70-220) 141mg/dL (70-220) 134mg/dL (70-220) White Blood Count 9.010^3/ul (4.8-10.8) Red Blood Count 3.5110^6/ul (4.20-5.40) Hemoglobin 8.3g/dl (12.0-16.0) Hematocrit 27.6% (37.0-47.0) Mean Corpuscular Volume 78.6fl (82.0-101.0) Mean Corpuscular Hemoglobin 23.6pg (29.0-33.0) Mean Corpuscular Hemoglobin Concent 30.1g/dl (32.0-37.0) Red Cell Distribution Width 21.2% (11.5-14.5) Platelet Count 31639^3/UL (140-415) Mean Platelet Volume 11.5fl (7.4-10.4) Neutrophils % 63.2% (39.0-77.0) Lymphocytes % 21.2% (15.0-51.0) Monocytes % 7.6% (0.0-11.0) Eosinophils % 7.0% (0.0-7.0) Basophils % 0.6% (0.0-2.0) Nucleated Red Blood Cells % 0.0/100WBC (0.0-0.0) Neutrophils # 5.710^3/ul (1.6-7.5) Lymphocytes # 1.910^3/ul (0.8-2.9) Monocytes # 0.710^3/ul (0.3-0.9) Eosinophils # 0.610^3/ul (0.0-0.5) Basophils # 0.110^3/ul (0.0-0.1) Nucleated Red Blood Cells # 0.010^3/ul (0.0-0.0) Sodium Level 145mmol/L (135-144) Potassium Level 3.2mmol/L (3.5-5.1) Chloride Level 110mmol/L (97-110) Carbon Dioxide Level 26mmol/L (21-31) Anion Gap 12 (8-16) Blood Urea Nitrogen 16mg/dl (7-20) Creatinine 0.51mg/dl (0.44-1.00) Glucose Level 147mg/dl (70-220) Calcium Level 9.1mg/dl (8.4-10.2) Test 08/30/17 05:12 08/30/17 08:26 08/30/17 12:37 Bedside Glucose 138mg/dL (70-220) 160mg/dL (70-220) 139mg/dL (70-220) LUDA MORENO MD Aug 30, 2017 14:20
[2017-08-30] MEDS: LOSARTAN 50 MG TAB GTB SCH (20:27)
== END 2017-08-30 23:15 | DRG 4 ==
LOC: E/R 19:42 → ICU 22:40
PROVIDERS: ADMIT Internal Medicine; ATTEND Internal Medicine
PROC: 02HV33Z Insertion of Infusion Device into Superior Vena Cava, Percutaneous Approach (ICD-10-PCS; principal; 2017-08-13)
PROC: 5A1955Z Respiratory Ventilation, Greater than 96 Consecutive Hours (ICD-10-PCS; 2017-08-13)
PROC: 0BH18EZ Insertion of Endotracheal Airway into Trachea, Via Natural or Artificial Opening Endoscopic (ICD-10-PCS; 2017-08-13)
PROC: 0B110F4 Bypass Trachea to Cutaneous with Tracheostomy Device, Open Approach (ICD-10-PCS; 2017-08-28)
DX: A41.9 Sepsis, unspecified organism (principal); J69.0 Pneumonitis due to inhalation of food and vomit; G93.49 Other encephalopathy; L89.154 Pressure ulcer of sacral region, stage 4; L89.013 Pressure ulcer of right elbow, stage 3; R13.19 Other dysphagia; J96.01 Acute respiratory failure with hypoxia; R65.20 Severe sepsis without septic shock; I10 Essential (primary) hypertension; F03.90 Unspecified dementia, unspecified severity, without behavioral disturbance, psychotic disturbance, mood disturbance, and anxiety; G40.909 Epilepsy, unspecified, not intractable, without status epilepticus; I69.991 Dysphagia following unspecified cerebrovascular disease; E11.649 Type 2 diabetes mellitus with hypoglycemia without coma; Z66 Do not resuscitate; D64.9 Anemia, unspecified; T85.898A Other specified complication of other internal prosthetic devices, implants and grafts, initial encounter; Y83.8 Other surgical procedures as the cause of abnormal reaction of the patient, or of later complication, without mention of misadventure at the time of the procedure; Y92.238 Other place in hospital as the place of occurrence of the external cause; Z79.4 Long term (current) use of insulin
CPT/HCPCS: 31500; 36415; 36600; 43760; 71010; 76937; 80048; 80053; 80202; 81001; 82550; 82553; 82803; 82962; 83605; 83735; 84100; 84484; 85025; 85610; 85730; 87040; 87070; 87081; 87086; 89220; 93005; 94002; 94003; 94770; 96372; 96374; 96375; 96376; C9113; J0360; J0690; J1644; J1815; J1953; J1956; J2250; J2270; J2310; J2405; J2543; J3010; J3370; J3480; J7030; J7040; J7070

== ENCOUNTER 2019-04-01 12:45 | Inpatient (IN) | payer MEDICARE, OTHER ==
[~2019-04-01] VITALS: Ht 152.4 cm; Wt 61.0 kg
[~2019-04-01 12:45] MED LIST changes: -ETOMIDATE 20 MG INJ ONE; -IPRA3AMP INHALATION; +IPRA3AMP29 INHALATION; +LOSA100T3 GTB; -LOSA100T47 GTB; +MAGN400O19 GTB; -MAGN400O4 GTB; -MIDAZOLAM 1 MG/ML 2 ML INJ ONE; -PROPOFOL 200 MG INJ ONE; -SUCCINYLCHOLINE CHLORIDE 100 MG/5 ML SYG IV ONE
--- NOTE | 2019-04-01 12:56 | ERD ---
ER Documentation Chief Complaint Chief Complaint Abnormal lab HPI The patient is a 73-year-old female, presenting to the ER because of abnormal lab, low hemoglobin 7.6 from the blood obtained yesterday high leukocytosis despite taking antibiotic. She is unable to provide any history, the history is obtained from differential specialist and medical record She has been on Fortaz antibiotic according to his PCP Dr. Mera Past medical history: Diabetes mellitus, epilepsy, hypertension, dementia, chronic respiratory failure, history of CVA, dysphagia, encephalopathy, CAD Past surgical history: Tracheostomy, G-tube ROS All systems reviewed and are negative except as per history of present illness. Medications Home Meds Reported Medications Ascorbic Acid (Vitamin C) 500 Mg Tab, 500 MG GTB BID, TAB 04/01/19 Cran/Vitc/Mannose/Inulin/Brom (Uti-Stat Liquid) 3,875 Mg/30 Ml Liquid, 30 ML GTB BID 04/01/19 Acetaminophen* (Tylenol*) 325 Mg Tablet, 650 MG GTB NEEDED PRN for TRACH TUBE CHANGE, TAB 04/01/19 Amino Acids/Protein Hydrolys (PRO-STAT LIQUID) 30 Ml Liquid.pkt, 30 ML GTB BID SUGAR FREE 04/01/19 Prednisone* (Prednisone*) 20 Mg Tab, 20 MG GTB DAILY, TAB 04/01/19 Potassium Chloride* (Potassium Chloride*) 20 Meq/15 Ml Liquid, 22.5 ML GTB DAILY, ML 04/01/19 Hydrocodone/Acetaminophen ([place] 5-325 Tablet) 1 Each Tablet, 1 EACH GTB BID, TAB 04/01/19 Losartan Potassium* (Losartan Potassium*) 100 Mg Tablet, 100 MG GTB DAILY, TAB HOLD IF SBP<110 OR HR<60 04/01/19 Levetiracetam* (Keppra* (Ped)) 100 Mg/Ml Liq, 5 ML GTB BID for 30 Days, BOTTLE 04/01/19 Metformin Hcl* (Metformin Hcl*) 500 Mg Tablet, 500 MG GTB WITH BREAKFAST DINNE, #60 TAB 04/01/19 Ferrous Sulfate* (Ferrous Sulfate*) 220 Mg/5 Ml Solution, 7.5 ML GTB DAILY, ML 04/01/19 Cranberry Extract (Cranberry) 425 Mg Capsule, 425 MG GTB BID, CAP 04/01/19 Docusate Sodium* (Colace*) 100 Mg Capsule, 100 MG GTB QHS, #30 CAP 04/01/19 Clopidogrel Bisulfate* (Clopidogrel Bisulfate*) 75 Mg Tablet, 75 MG GTB DAILY, #30 TAB 04/01/19 Loratadine* (Loratadine*) 10 Mg Tablet, 10 MG GTB DAILY, #30 TAB 04/01/19 Chlorhexidine Gluconate (Peridex) 473 Ml Mouthwash, 15 ML MM Q12H, BOTTLE 04/01/19 Insulin Glargine,Hum.rec.anlog (Basaglar Kwikpen U-100) 100 Unit/1 Ml Insuln.pen, 63 UNIT SC Q12H, EA 04/01/19 Amlodipine Besylate* (Amlodipine Besylate*) 10 Mg Tablet, 10 MG GTB DAILY, #30 TAB HOLD FOR SBP <110 OR HR<60 04/01/19 Albuterol Sulfate* (Albuterol Sulfate* Neb) 0.083%-3 Ml Neb, 2.5 MG NEB Q3H PRN for WHEEZING AND SOB, #30 VIAL 04/01/19 Discontinued Reported Medications Tramadol HCl (Tramadol HCl) 50 Mg Tablet, 50 MG GTB Q8H PRN for PAIN LEVEL 6-10, #120 TAB 06/19/17 Bisacodyl* (Dulcolax*) 5 Mg Tablet.dr, 10 MG PO DAILY PRN for CONSTIPATION, TAB 06/19/17 Acetaminophen* (Acetaminophen*) 650 Mg Tablet, 650 MG PO Q4 PRN for PAIN AND OR ELEVATED TEMP, #30 TAB 06/19/17 Magnesium Hydroxide* (Milk Of Magnesia*) 400 Mg/5 Ml Oral.susp, 30 ML GTB DAILY PRN for CONSTIPATION, ML 06/19/17 Ipratropium-Albuterol (Ipratropium-Albuterol) 0.5-3 Mg/3 Ml Ampul.neb, 3 ML INHALATION Q4 PRN for SHORTNESS OF BREATH, #30 VIAL 06/19/17 Clonidine Hcl* (Clonidine Hcl*) 0.1 Mg Tab, 0.1 MG GTB Q6 PRN for ELEVATED BLOOD PRESSURE, TAB 06/19/17 Insulin Detemir (Levemir Flextouch) 100 Unit/1 Ml Insuln.pen, 40 UNIT SQ WITH BREAKFAST 06/19/17 Levetiracetam* (Keppra*) 500 Mg/5 Ml Solution, 500 MG GTB BID, BOTTLE 06/19/17 Tramadol HCl (Tramadol HCl) 50 Mg Tablet, 50 MG GTB Q12, #60 TAB 06/19/17 Zinc Sulfate* (Zinc Sulfate*) 220 Mg Tablet, 220 MG GTB DAILY, TAB 06/19/17 Ascorbic Acid* (Vitamin C*) 500 Mg Capsule.sa, 500 MG GTB DAILY, CAP 06/19/17 Clopidogrel Bisulfate (Clopidogrel) 75 Mg Tablet, 75 MG GTB DAILY, #30 TAB 06/19/17 Cephalexin* (Cephalexin*) 500 Mg Capsule, 500 MG GTB Q6, #28 CAP 06/19/17 Losartan Potassium* (Cozaar*) 100 Mg Tablet, 100 MG GTB QHS, #30 TAB 06/19/17 Allergies Allergies: Coded Allergies: levofloxacin (Unverified Allergy, Unknown, 04/01/19) PMhx/Soc History of Surgery: Yes (G TUBE, TRACH) Hx Miscellaneous Medical Probl: Yes (DEMENTIA, NON-VERBAL) Physical Exam Vitals Vital Signs Date Temp Pulse Resp B/P (MAP) Pulse Ox O2 O2 Flow FiO2 Time Delivery Rate 04/01/19 111 16 100 40 14:34 04/01/19 111 20 100 40 13:03 04/01/19 99.8 106 20 133/57 100 12:59 (82) Physical Exam Const: No acute distress. Head: Atraumatic. Eyes: Normal Conjunctiva. ENT: Normal External Ears, Nose and Mouth. Tracheostomy Neck: Full range of motion. No meningismus. Resp: Clear to auscultation bilaterally. Cardio: Regular tachycardic. Abd: Soft, non distended, normal bowel sounds, non tender. G-tube Skin: No petechiae or rashes. Back: No midline or flank tenderness. Ext: No cyanosis, or edema. Neur: Unable to perform due to her condition Psych: Unable to perform due to her condition Result Diagram: 04/01/19 1327 04/01/19 1327 Results 24 hrs Laboratory Tests Test 04/01/19 13:26 04/01/19 13:27 04/01/19 14:11 04/01/19 14:25 Prothrombin 13.3 Sec Time Prothrombin 1.0 Time Ratio INR 1.00 International Normalized Rati o Activated 28.0 Sec Partial Thrombo plast Time White Blood 16.8 10^3/ul Count Red Blood Count 3.07 10^6/ul Hemoglobin 7.3 g/dl Hematocrit 24.5 % Mean 79.8 fl Corpuscular Volume Mean 23.8 pg Corpuscular Hemoglobin Mean 29.8 g/dl Corpuscular Hemoglobin Conc ent Red Cell 18.0 % Distribution Width Platelet Count 443 10^3/UL Mean Platelet 12.8 fl Volume Immature 2.000 % Granulocytes % Neutrophils % 92.7 % Lymphocytes % 3.9 % Monocytes % 1.1 % Eosinophils % 0.1 % Basophils % 0.2 % Nucleated Red 0.1 /100WBC Blood Cells % Immature 0.330 10^3/ul Granulocytes # Neutrophils # 15.6 10^3/ul Lymphocytes # 0.7 10^3/ul Monocytes # 0.2 10^3/ul Eosinophils # 0.0 10^3/ul Basophils # 0.0 10^3/ul Nucleated Red 0.0 10^3/ul Blood Cells # Sodium Level 145 mmol/L Potassium Level 5.2 mmol/L Chloride Level 114 mmol/L Carbon Dioxide 25 mmol/L Level Anion Gap 6 Blood Urea 24 mg/dl Nitrogen Creatinine 0.51 mg/dl Est Glomerular mL/min Filtrat Rate mL/min Glucose Level 138 mg/dl Calcium Level 9.1 mg/dl Total Bilirubin 0.3 mg/dl Direct 0.00 mg/dl Bilirubin Indirect 0.3 mg/dl Bilirubin Aspartate Amino 25 IU/L Transf (AST/SGO T) Alanine 32 IU/L Aminotransferas e (ALT/SGPT) Alkaline 100 IU/L Phosphatase Troponin I < 0.012 ng/ml Total Protein 6.3 g/dl Albumin 3.1 g/dl Globulin 3.20 g/dl Albumin/Globuli 0.96 n Ratio POC Venous 2.8 mmol/L Lactate Urine Color STRAW Urine Clarity CLEAR Urine pH 8.0 Urine Specific 1.012 [place] Urine Ketones NEGATIVE mg/dL Urine Nitrite NEGATIVE mg/dL Urine Bilirubin NEGATIVE mg/dL Urine NEGATIVE mg/dL Urobilinogen Urine Leukocyte 1+ Chasidy/ul Esterase Urine 9 /HPF Microscopic RBC Urine 12 /HPF Microscopic WBC Urine 1+ mg/dL Hemoglobin Urine Glucose 1+ mg/dL Urine Total NEGATIVE mg/dl Protein Test 04/01/19 14:30 Blood Gas Blood arterial Specimen Source Arterial Blood 04/01/2019 2:20: Date Drawn 34 PM Arterial Blood 7.464 pH (Temp corrected ) Arterial Blood 33.2 mmhg pCO2 (Temp correct) Arterial Blood 156.5 mmHG pO2 (Temp corrected ) Arterial Blood 23.3 mmol/L HCO3 Arterial Blood -0.2 mmol/L Base Excess Arterial Blood 98.9 mmHG Oxygen Saturati on Girish Test ACCEPTAB Arterial Blood Left Radial Gas Puncture Site Arterial 0.1 % Blood Carboxyhe moglobin Arterial Blood 0.4 % Methemoglobin Blood Gas A-a 90.5 mmHg O2 Differential Oxyhemoglobin 98.4 % Percent Blood Gas 37.0 C Temperature Blood Gas 16.0 Respiration Rate Blood Gas 17 Actual Respiration Rat e Blood Gas VENT - AC Modality FiO2 40.0 % Blood Gas Tidal 500.0 mL Volume Blood Gas High 5.0 cmH2O PEEP Setting Blood Gas DR Nilda GONZALES MD Critical Value Read Back Blood Gas T [employer] Notified Whom Blood Gas 04/01/2019 2:27: Notified Time 23 PM Current Medications Medications Dose Sig/Leah Start Time Status Last (Trade) Ordered Route PRN Stop Time Admin Dose Reason Admin Vancomycin 250 ml @ ONCE ONCE 04/01/19 HCl 125 mls/hr IVPB 14:30 04/01/19 16:29 50 ml @ ONCE STAT 04/01/19 DC Meropenem/Sod 100 mls/hr IVPB 14:13 ium Chloride 04/01/19 14:42 Sodium 2,100 ml BOLUS OVER 2 04/01/19 DC 04/01/19 Chloride HOURS STAT 14:16 14:51 (NS) IV* 04/01/19 14:18 Procedures/[place] [id number] Radiology Main Line: [phone] DIAGNOSTIC IMAGING REPORT Patient: ILAN GREGORIO : 1945 Age: 73 Sex: F MR #: [id number] DOS: 04/01/19 1259 Ordering MD: JAELYN GONZALES MD Location: E/R Room/Bed: PROCEDURE: XR Chest. CLINICAL INDICATION: Sepsis. TECHNIQUE: Chest, 1 view. COMPARISON: Chest radiograph 09/01/2017. FINDINGS: Tracheostomy tube noted. The cardiomediastinal silhouette is normal in size. Mild bibasilar opacities, likely atelectasis. No pleural effusion is seen. No definite pneumothorax is seen. No acute osseous abnormality. Advanced degenerative changes of the bilateral glenohumeral joints. IMPRESSION: No radiographic evidence of an acute cardiopulmonary process. Mild bibasilar opacities, likely atelectasis. Tracheostomy tube present. RPTAT: AAEE Seema Pacheco Physician Date Time Electronically viewed and signed by Seema Pacheco Physician on 04/01/2019 13:31 PH/ CC: JAELYN GONZALES MD [id number] EKG: Read by emergency physician Rate/Rhythm: Sinus tachycardia 114 beats/min QRS, ST, T-waves: No ST elevation, no T inversion Impression: Abnormal EKG MEDICAL MAKING DECISION: The patient is a 73-year-old female, presenting with acute severe sepsis, acute cystitis, acute hyperkalemia. The Lane catheter was replaced. She was treated with vancomycin IV, meropenem IV, IV fluid The differential diagnoses considered include but are not limited to pneumonia, aspiration pneumonia, cystitis, pyelonephritis, osteomyelitis, gastrointestinal bleeding MDM: Patient's infectious symptoms have not stabilized and the patient is at risk of rapid decompensation. The patient will be admitted for careful hydration, antibiotic therapy, and infectious source control. SEVERE SEPSIS CRITERIA: Infectious source: uti End organ damage indicated by: [Lactate > 2.0 mmol/L SEPSIS MANAGEMENT Time of recognition of severe sepsis: 2:15p. 3 HOUR BUNDLE Blood cultures x 2 before broad-spectrum antibiotics: [Yes] 30 ml/kg NS bolus [Completed] Initial lactate []2.8 Repeat lactate Pending SEPTIC SHOCK ASSESSMENT: [No] lactic acid > 4.0 [No] Persistent hypotension (SBP < 90 or 40 mmHg drop, MAP < 65) despite 30 mL/kg IV fluid bolus CRITICAL CARE Critical care time [35] minutes Emergent fluid management while maintaining close respiratory support. Provision of immediate and broad-spectrum antibiotic therapy. Simultaneous assessment for possible sources in order to direct targeted therapy. Consideration for invasive and chemical support to prevent cardiopulmonary collapse. Critical care time is independent of procedures performed. Departure Diagnosis: Primary Impression: Severe sepsis Additional Impressions: UTI (urinary tract infection) Hyperkalemia Anemia Condition: Stable Comments I discussed the findings with the patient. I discussed the patient with Dr Mera at around 2:30 PM , who was made aware of the lab, the treatment, the patient condition. The patient is admitted to Tel Disclaimer: Inadvertent spelling and grammatical errors are likely due to EHR/dictation software use and do not reflect on the overall quality of patient care. Also, please note that the electronic time recorded on this note does not necessarily reflect the actual time of the patient encounter. JAELYN GONZALES MD Apr 01, 2019 12:56
[2019-04-01] MEDS ORDERED: ALBU2.5V3 NEB (13:23)
[2019-04-01] MEDS ORDERED: AMLO-147 GTB (13:25)
[2019-04-01] MEDS ORDERED: INSU100I33 SC (13:25)
[2019-04-01] MEDS ORDERED: CHLO473M4 MM (13:26)
[2019-04-01] MEDS ORDERED: LORA10TA3 GTB (13:27)
[2019-04-01] MEDS ORDERED: CLOP75TA19 GTB (13:27)
[2019-04-01] MEDS ORDERED: DOCU-144 GTB (13:28)
[2019-04-01] MEDS ORDERED: CRAN425C6 GTB (13:28)
[2019-04-01] MEDS ORDERED: FERR220S13 GTB (13:29)
[2019-04-01] MEDS ORDERED: METF500T24 GTB (13:30)
[2019-04-01] MEDS ORDERED: KEP100S GTB (13:31)
[2019-04-01] MEDS ORDERED: LOSA100T15 GTB (13:32)
[2019-04-01] MEDS ORDERED: HYDR-4011 GTB (13:33)
[2019-04-01] MEDS ORDERED: POTA20LI15 GTB (13:34)
[2019-04-01] MEDS ORDERED: PRED20TA GTB (13:35)
[2019-04-01] MEDS ORDERED: AMIN30LI GTB (13:36)
[2019-04-01] MEDS ORDERED: ACET325T33 GTB (13:37)
[2019-04-01] MEDS ORDERED: ASC500 GTB (13:38)
[2019-04-01] MEDS ORDERED: CRAN3875 GTB (13:38)
[2019-04-01] MEDS ORDERED: MEROPENEM 1 GM/50ML(PMX) 50 ML IVPB STA (14:13)
[2019-04-01] MEDS ORDERED: SODIUM CHLORIDE 0.9% 1L BAG IV* STA (14:16)
[2019-04-01] MEDS ORDERED: VANCOMYCIN 1 GM (PMX) 250 ML IVPB ONE (14:30)
[2019-04-01 19:15] VITALS: RESP 16
[2019-04-01 19:30] VITALS: PULSE 95
[2019-04-01 19:37] VITALS: BP 128/63; PULSE 97; RESP 18
[2019-04-01 20:00] VITALS: PULSE 89
[2019-04-01 20:30] VITALS: Ht 152.4 cm; Wt 61.0 kg
[2019-04-01 21:30] VITALS: RESP 16
[2019-04-01] MEDS ORDERED: GENTAMICIN IV PER PHARMACY XX SCH (21:30)
[2019-04-01] MEDS ORDERED: GLUCOSE GEL 15 GRAM TUBE PO PRN ×2 (22:00)
[2019-04-01] MEDS ORDERED: DEXTROSE 50% 50 ML SYRINGE IV PRN (22:00)
[2019-04-01] MEDS ORDERED: GLUCOSE GEL 15 GRAM TUBE BUCCAL PRN (22:00)
[2019-04-01] MEDS ORDERED: GLUCAGON 1 MG INJ IM PRN (22:00)
[2019-04-01] MEDS ORDERED: INSULIN GLARGINE [LANtus] 3 ML PEN SC SCH (22:00)
[2019-04-01] MEDS ORDERED: ALBUTEROL 0.083% (NEB) 2.5 MG/3 ML AMP NEB PRN (22:00)
[2019-04-01] MEDS ORDERED: INSULIN GLARGINE [LANTus] (100 UNITS/ML) SYG SC SCH (22:30)
[2019-04-01] MEDS: GENTAMICIN IVPB SCH (23:00)
[2019-04-01] MEDS: SOD CHLORIDE 0.9% IVPB SCH (23:00)
[2019-04-01] MEDS: CHLORHEXIDINE GLUCONATE 15 ML UD CUP MM SCH (23:10)
[2019-04-01] MEDS: SOD CHLORIDE 0.45% 1,000 ML IV SCH (23:11)
[2019-04-01 23:20] VITALS: RESP 16
[2019-04-01] MEDS: DEXTROSE 50% 50 ML SYRINGE IV PRN (23:21)
[2019-04-02] VITALS (24 sets, daily range): BP systolic 118–145; BP diastolic 56–65; PULSE 96–116; RESP 16–21
[2019-04-02] MEDS: GENTAMICIN IVPB SCH (00:02)
[2019-04-02] MEDS: SOD CHLORIDE 0.9% IVPB SCH (00:02)
[2019-04-02] MEDS: ALBUTEROL 0.083% (NEB) 2.5 MG/3 ML AMP HHN SCH ×4 (02:04→19:35)
[2019-04-02] MEDS: INSULIN ASPART [NOVOLOG] 3 ML PEN SC SCH ×5 (05:00→20:12)
[2019-04-02] MEDS ORDERED: PENDING SANTYL ORDER FOR WOUND CARE XX PRN (05:00)
[2019-04-02] MEDS: PANTOPRAZOLE (EC) 40 MG TAB PO SCH ×2 (05:52→06:16)
[2019-04-02] MEDS ORDERED: [UNRECOGNIZED DRUG - REMARK] XX ONE (06:00)
--- NOTE | 2019-04-02 06:33 | CONS ---
DATE OF ADMISSION: 04/01/2019 DATE OF CONSULTATION: 04/01/2019 TYPE OF CONSULTATION: Infectious disease. REASON FOR CONSULTATION: Antibiotic management. HISTORY OF PRESENT ILLNESS: Aishwarya Ng is a 73-year-old female admitted today with abnormal labo ratory results with a hemoglobin of 7.6 from blood obtained yesterday. She is unable to provide hist ory. Her past problems include: 1. Adult-onset diabetes mellitus. 2. Epilepsy. 3. Hypertension. 4. Senile dementia. 5. Respiratory failure. 6. CVA. 7. Dysphagia. 8. Encephalopathy. 9. Coronary artery disease. 10. Status post tracheostomy. 11. G-tube placement. 12. The patient is nonverbal. PHYSICAL EXAMINATION: VITAL SIGNS: Stable. GENERAL: She is in no acute distress. SKIN: Without generalized rash. HEENT: Within normal limits. NECK: Tracheostomy in place. LYMPH NODES: None palpable. CHEST: Decreased breath sounds at the bases. HEART: Tachycardic. ABDOMEN: Soft, nontender without organosplenomegaly or masses. G-tube in place. EXTREMITIES: Without cyanosis, clubbing or edema. RECTAL AND GENITAL: Deferred. NEUROLOGIC: She is unable to do very much secondary to her condition. She moves all extremities. HOSPITAL COURSE: White count 16.8 with 93% neutrophils, H and H of 7.3 and 24.8, platelet count 443, 000. BUN and creatinine is 24/0.51. Urinalysis showed 1+ leukocyte esterase and 12 white cells per high powered field. Her arterial blood gases showed a pH of 7.46, pO2 of 156, pCO2 of 33. The patie nt was started on vancomycin and meropenem. Chest x-ray: Tracheostomy in place, cardiomegaly, mild bibasilar opacities, likely atelectasis, no pleural effusions, no definite pneumothorax, no radiograp hic evidence of acute cardiopulmonary process, mildly bibasilar opacities likely atelectasis, tracheo stomy tube present. EKG showed sinus tachycardia. The patient was noted to have acute severe sepsis with probable acute cystitis and hyperkalemia and Lane catheter was replaced. She was treated with vancomycin and meropenem. The patient was thought to have pneumonia, possibly aspiration as well as acute UTI. She therefore was admitted to telemetry. Dictated By: IGNACIO LEAHY MD, JD/ERENDIRA Conf#: [id number] [facility]#: [id number] CC: NICOLE BUCHANAN MD;*EndCC*
[2019-04-02] MEDS: HYDROCODONE/APAP (5/325) TAB GTB SCH ×2 (08:25→20:34)
[2019-04-02] MEDS: FERROUS SULFATE 60 MG/ML 5ML CUP GTB SCH (09:02)
[2019-04-02] MEDS: INSULIN GLARGINE [LANTus] (100 UNITS/ML) SYG SC SCH ×2 (09:02→20:33)
[2019-04-02] MEDS: LEVETIRACETAM (100 MG/ML) 5ML CUP GTB SCH ×2 (09:02→20:13)
[2019-04-02] MEDS: ACETAMINOPHEN 650MG/20.3ML CUP PO PRN ×4 (09:03→22:49)
[2019-04-02] MEDS: AMLODIPINE 10 MG TAB GTB SCH (09:05)
[2019-04-02] MEDS: LOSARTAN 50 MG TAB GTB SCH (09:05)
[2019-04-02] MEDS: CLOPIDOGREL 75 MG TAB GTB SCH (09:05)
[2019-04-02] MEDS: ASCORBIC ACID 500 MG TAB GTB SCH ×2 (09:05→20:13)
[2019-04-02] MEDS: metFORMIN 500 MG TAB GTB SCH ×2 (09:06→17:24)
--- NOTE | 2019-04-02 09:08 | HP ---
DATE OF ADMISSION: 04/01/2019 CHIEF COMPLAINT AND HISTORY OF PRESENT ILLNESS: The patient is a 73-year-old female well known to me. The patient has dementia, CVA, chronic respiratory failure, hypertension, seizure disorder, and diabetes. The patient is a resident of [facility]. The patient is being followed by group insurance specialist and was recently noted to have leukocytosis and sputum was positive for acinetobacter. The patient was started on IV cefepime based on culture and sensitivity. However, patient's white count went up from 15.8 on 03/28/2019 up to 18.26 today. The patient also was noted to have potassium of 5.3, up from 4.8 and hemoglobin dropped from 7.7 down to 7.6. The patient was sent to [facility] ER for further evaluation and management. The patient was seen in ER and was noted to have a temperature of 99.8 with tachycardia with a peak pulse of 111. The patient also was noted to have a lactic acid of 2.8. The patient was diagnosed with sepsis due to tracheobronchitis and chest x-ray did not reveal any acute infiltrate. The patient also was noted to have elevated BUN of 24. The patient is being admitted for further evaluation and management. REVIEW OF SYSTEMS: Was limited as the patient is noncommunicative. There was no reported breakthrough seizure. No reported shortness of breath, no reported GI bleed. No reported vomiting or diarrhea. No reported abdominal distention. The patient has been tolerating G-tube feeding well. The patient is noncommunicative and does not even track. PAST MEDICAL HISTORY: As stated above. Also history of hypertension, diabetes and seizure disorder. PAST SURGICAL HISTORY: The patient has tracheostomy and G-tube placement. SOCIAL HISTORY: Unknown. FAMILY HISTORY: Unknown. PHYSICAL EXAMINATION: GENERAL: The patient be awake; however, noncommunicative. VITAL SIGNS: T-maximum 99.8, pulse 106, respirations 20, blood pressure 133/57, O2 saturation 100% on FIO2 of 40%. Patient is currently on mechanical ventilator on AC mode. HEENT: Atraumatic, normocephalic. Conjunctivae and lids normal. Pupils reactive to light. Nose and ears normal externally. NECK: Tracheostomy in place, mild secretions, no mass. CHEST: Diminished air entry at bases. No use of accessory muscles. CARDIOVASCULAR: Regular rate and rhythm. S1, S2 normal, no murmur. ABDOMEN: Soft, nondistended, nontender. G-tube in place. EXTREMITIES: Trace edema. NEUROLOGIC: The patient is awake, noncommunicative with no significant spontaneous movement. SKIN : no acute rash unstageable sacro coccygeal decub LABORATORY DATA: As above. In addition, the patient's sodium was 145, potassium 5.2, BUN 24, creatinine 0.5, glucose 138, AST 25, ALT 32, alkaline phosphatase 100, albumin 3.1. Troponin negative. WBC 6.8, hemoglobin 10.2, platelet 443. Lactate 2.8. IMPRESSION: 1. Sepsis secondary to tracheobronchitis. Based on recent intensity of sp[facility] culture from [facility], I would start her on IV gentamicin dosing as per pharmacy. We will keep her well hydrated. Repeat sputum culture will be obtained. Will also obtain a urine culture. 2. Respiratory failure. Continue vent support and breathing treatment. 3. Hypertension. Continue Norvasc and losartan. 4. Diabetes. Continue Lantus and sliding scale insulin in addition to metformin. 5. Seizure: Stable with current dose of Keppra. 6. Anemia, most likely anemia of chronic disease. We will obtain iron panel, vitamin B12 and folic acid level along with LDH. We will also obtain stool OB. The patient will be empirically started on Protonix. GI & hemeonc consults will be obtained 7. CVA, continue Plavix. We will discuss with the family when available. Meanwhile ID consult from Dr. Mcmullen has been requested. 8. Sacrococcygeal decub , unstageable. Will obtain ID & surgical consult Dictated By: NICOLE PIMENTEL/ERENDIRA Conf#: [id number] DID#: [id number] DEVENDRA
--- NOTE | 2019-04-02 11:01 | CONS ---
Assessment/Plan Assessment/Plan Assessment/Plan (Daily) Chest x-ray showing patchy infiltrates bilaterally. UA is positive for UTI. Assessment and recommendations; 1. Patient with history of VDRF and chronic encephalopathy admitted for sepsis which is combination of pneumonia and UTI. Currently on appropriate antimicrobial regimen. 2. Severe anemia. Patient to get blood transfusion. May need GI work-up done. 3. History of hypertension, diabetes, and seizure disorder. Continue current supportive care. Consider stopping aminoglycoside antibiotic. Further recommendations per ID partner management consultant. Antibiotic adjustment to be done once culture results are obtained. Monitor H&H. Consultation Date/Type/Reason Admit Date/Time Apr 01, 2019 at 16:23 Date of Consultation: Apr 02, 2019 Type of Consult Pulmonary Patient is a 73-year-old lady who was [facility] from [facility] with sepsis. Patient has been diagnosed a UTI and possibly pneumonia. Currently started on appropriate antimicrobial regimen. Patient does have advanced encephalopathy and was unable to give any history by herself whatsoever. Patient however was not in any distress whatsoever. History has been obtained from medical records. Past medical history; 1. VDRF. 2. Tracheostomy and G-tube placement. 3. Advanced encephalopathy. 4. Diabetes. 5. Hypertension. 6. History of seizure disorder. 7. Chronic anemia. Medications; reviewed. Allergies; Levaquin. Social history, family history, occupational history is not available. Review of system; unable to be obtained. General exam; elderly woman, on ventilator via tracheostomy, awake, currently in no distress. Patient is noncommunicative. Date/Time of Note DATE: 04/02/19 TIME: 10:58 Past Medical History Home Meds Reported Medications Ascorbic Acid (Vitamin C) 500 Mg Tab, 500 MG GTB BID, TAB 04/01/19 Cran/Vitc/Mannose/Inulin/Brom (Uti-Stat Liquid) 3,875 Mg/30 Ml Liquid, 30 ML GTB BID 04/01/19 Acetaminophen* (Tylenol*) 325 Mg Tablet, 650 MG GTB NEEDED PRN for TRACH TUBE CHANGE, TAB 04/01/19 Amino Acids/Protein Hydrolys (PRO-STAT LIQUID) 30 Ml Liquid.pkt, 30 ML GTB BID SUGAR FREE 04/01/19 Prednisone* (Prednisone*) 20 Mg Tab, 20 MG GTB DAILY, TAB 04/01/19 Potassium Chloride* (Potassium Chloride*) 20 Meq/15 Ml Liquid, 22.5 ML GTB DAILY, ML 04/01/19 Hydrocodone/Acetaminophen ([place] 5-325 Tablet) 1 Each Tablet, 1 EACH GTB BID, TAB 04/01/19 Losartan Potassium* (Losartan Potassium*) 100 Mg Tablet, 100 MG GTB DAILY, TAB HOLD IF SBP<110 OR HR<60 04/01/19 Levetiracetam* (Keppra* (Ped)) 100 Mg/Ml Liq, 5 ML GTB BID for 30 Days, BOTTLE 04/01/19 Metformin Hcl* (Metformin Hcl*) 500 Mg Tablet, 500 MG GTB WITH BREAKFAST DINNE, #60 TAB 04/01/19 Ferrous Sulfate* (Ferrous Sulfate*) 220 Mg/5 Ml Solution, 7.5 ML GTB DAILY, ML 04/01/19 Cranberry Extract (Cranberry) 425 Mg Capsule, 425 MG GTB BID, CAP 04/01/19 Docusate Sodium* (Colace*) 100 Mg Capsule, 100 MG GTB QHS, #30 CAP 04/01/19 Clopidogrel Bisulfate* (Clopidogrel Bisulfate*) 75 Mg Tablet, 75 MG GTB DAILY, #30 TAB 04/01/19 Loratadine* (Loratadine*) 10 Mg Tablet, 10 MG GTB DAILY, #30 TAB 04/01/19 Chlorhexidine Gluconate (Peridex) 473 Ml Mouthwash, 15 ML MM Q12H, BOTTLE 04/01/19 Insulin Glargine,Hum.rec.anlog (Basaglar Kwikpen U-100) 100 Unit/1 Ml Insuln.pen, 63 UNIT SC Q12H, EA 04/01/19 Amlodipine Besylate* (Amlodipine Besylate*) 10 Mg Tablet, 10 MG GTB DAILY, #30 TAB HOLD FOR SBP <110 OR HR<60 04/01/19 Albuterol Sulfate* (Albuterol Sulfate* Neb) 0.083%-3 Ml Neb, 2.5 MG NEB Q3H PRN for WHEEZING AND SOB, #30 VIAL 04/01/19 Discontinued Reported Medications Tramadol HCl (Tramadol HCl) 50 Mg Tablet, 50 MG GTB Q8H PRN for PAIN LEVEL 6-10, #120 TAB 06/19/17 Bisacodyl* (Dulcolax*) 5 Mg Tablet.dr, 10 MG PO DAILY PRN for CONSTIPATION, TAB 06/19/17 Acetaminophen* (Acetaminophen*) 650 Mg Tablet, 650 MG PO Q4 PRN for PAIN AND OR ELEVATED TEMP, #30 TAB 06/19/17 Magnesium Hydroxide* (Milk Of Magnesia*) 400 Mg/5 Ml Oral.susp, 30 ML GTB DAILY PRN for CONSTIPATION, ML 06/19/17 Ipratropium-Albuterol (Ipratropium-Albuterol) 0.5-3 Mg/3 Ml Ampul.neb, 3 ML INHALATION Q4 PRN for SHORTNESS OF BREATH, #30 VIAL 06/19/17 Clonidine Hcl* (Clonidine Hcl*) 0.1 Mg Tab, 0.1 MG GTB Q6 PRN for ELEVATED BLOOD PRESSURE, TAB 06/19/17 Insulin Detemir (Levemir Flextouch) 100 Unit/1 Ml Insuln.pen, 40 UNIT SQ WITH BR EAKFAST 06/19/17 Levetiracetam* (Keppra*) 500 Mg/5 Ml Solution, 500 MG GTB BID, BOTTLE 06/19/17 Tramadol HCl (Tramadol HCl) 50 Mg Tablet, 50 MG GTB Q12, #60 TAB 06/19/17 Zinc Sulfate* (Zinc Sulfate*) 220 Mg Tablet, 220 MG GTB DAILY, TAB 06/19/17 Ascorbic Acid* (Vitamin C*) 500 Mg Capsule.sa, 500 MG GTB DAILY, CAP 06/19/17 Clopidogrel Bisulfate (Clopidogrel) 75 Mg Tablet, 75 MG GTB DAILY, #30 TAB 06/19/17 Cephalexin* (Cephalexin*) 500 Mg Capsule, 500 MG GTB Q6, #28 CAP 06/19/17 Losartan Potassium* (Cozaar*) 100 Mg Tablet, 100 MG GTB QHS, #30 TAB 06/19/17 Medications Current Medications Pantoprazole (Protonix Tab) 40 mg DAILY@06 PO Last administered on 04/02/19at 06:16; Admin Dose 40 MG; Start 04/02/19 at 06:00 Albuterol (Proventil 0.083% (Neb)) 2.5 mg Q3H RESP THERAPY PRN NEB WHEEZING AND SOB; Start 04/01/19 at 22:00 Amlodipine Besylate (Norvasc) 10 mg DAILY GTB Last administered on 6/18/19at 09:05; Admin Dose 10 MG; Start 04/02/19 at 09:00 Ascorbic Acid (Vitamin C) 500 mg BID GTB Last administered on 04/02/19at 09:05; Admin Dose 500 MG; Start 04/02/19 at 09:00 Chlorhexidine Gluconate (Peridex) 15 ml Q12H MM Last administered on 04/01/19at 23:10; Admin Dose 15 ML; Start 04/01/19 at 22:00 Clopidogrel Bisulfate (plaVIX) 75 mg DAILY GTB Last administered on 04/02/19at 09:05; Admin Dose 75 MG; Start 04/02/19 at 09:00 Docusate Sodium (Colace Liquid Cup) 100 mg QHS GTB ; Start 04/02/19 at 21:00 Ferrous Sulfate (Feosol Liquid Cup) 300 mg DAILY GTB Last administered on 04/02/19at 09:02; Admin Dose 300 MG; Start 04/02/19 at 09:00 Acetaminophen/ Hydrocodone Bitart ([place] (5/325)) 1 tab BID GTB ; Start 04/02/19 at 09:00 Levetiracetam (Keppra Liquid) 500 mg BID GTB Last administered on 04/02/19at 09: 02; Admin Dose 500 MG; Start 04/02/19 at 09:00 Losartan Potassium (Cozaar) 100 mg DAILY GTB Last administered on 04/02/19at 09:05; Admin Dose 100 MG; Start 04/02/19 at 09:00 Metformin HCl (Glucophage) 500 mg WITH BREAKFAST DINNE GTB Last administered on 04/02/19at 09:06; Admin Dose 500 MG; Start 04/02/19 at 07:55 Albuterol (Proventil 0.083% (Neb)) 1.25 mg Q6H RESP THERAPY HHN Last administered on 04/02/19at 08:03; Admin Dose 1.25 MG; Start 04/02/19 at 02:00 Miscellaneous Information 1 ea NOTE XX ; Start 04/01/19 at 22:00 Glucose (Glutose) 15 gm Q15M PRN PO DECREASED GLUCOSE; Start 04/01/19 at 22:00 Glucose (Glutose) 22.5 gm Q15M PRN PO DECREASED GLUCOSE; Start 04/01/19 at 22:00 Dextrose (D50w Syringe) 25 ml Q15M PRN IV DECREASED GLUCOSE Last administered on 04/01/19at 23:21; Admin Dose 25 ML; Start 04/01/19 at 22:00 Dextrose (D50w Syringe) 50 ml Q15M PRN IV DECREASED GLUCOSE; Start 04/01/19 at 22:00 Glucagon (Glucagen) 1 mg Q15M PRN IM DECREASED GLUCOSE; Start 04/01/19 at 22:00 Glucose (Glutose) 15 gm Q15M PRN BUCCAL DECREASED GLUCOSE; Start 04/01/19 at 22:00 Sodium Chloride 1,000 ml @ 40 mls/hr Q24H IV Last administered on 04/01/19at 23:11; Admin Dose 40 MLS/HR; Start 04/01/19 at 21:30 Gentamicin Sulfate (Gentamicin Iv Per Pharmacy) GENTAMICIN PER PHARMACY NOTE XX ; Start 04/01/19 at 21:30 Gentamicin Sulfate 260 mg/ Sodium Chloride 106.5 ml @ 103.75 mls/ hr Q24H IVPB Last administered on 04/02/19at 00:02; Admin Dose 103.75 MLS/HR; Start 04/01/19 at 23:00 Insulin Glargine (Lantus) 40 units Q12 SC Last administered on 04/02/19at 09:02; Admin Dose 40 UNITS; Start 04/02/19 at 09:00 Insulin Aspart (Novolog Insulin Pen) NOVOLOG *MILD* ALGORI... Q4 SC ; Start 04/02/19 at 05:00 Miscellaneous Information (Pending [facility] Order For Wound Care) This patient valenzuela... PRN PRN XX WOUND CARE; Start 04/02/19 at 05:00 Acetaminophen (Tylenol Liquid) 650 mg Q4H PRN PO MILD PAIN(1-3)OR ELEVATED TEMP Last administered on 04/02/19at 09:03; Admin Dose 650 MG; Start 04/02/19 at 08:30 Allergies: Coded Allergies: levofloxacin (Unverified Allergy, Unknown, 04/01/19) Past Surgical History Past Surgical Hx: other Social History Smoking Status: Unknown if ever smoked Exam/Review of Systems Exam Vitals Vital Signs Date Temp Pulse Resp B/P (MAP) Pulse Ox O2 O2 Flow FiO2 Time Delivery Rate 04/02/19 101.2 10:48 04/02/19 116 08:30 04/02/19 21 145/65 97 07:47 (91) 04/02/19 30 07:35 04/02/19 [place] 04:04 l Ventilato r Intake and Output 04/01/19 04/01/19 04/02/19 1515:00 23:00 07:00 IntakeIntake Total 615 ml OutputOutput Total 1200 ml BalanceBalance -585 ml Exam H EENT exam; supple neck, no JVD. No lymphadenopathy. Midline trachea. No thyromegaly. Tracheostomy placed. Insertion site is clean. Patient has multiple carious teeth. Chest exam; diminished breath sounds bilaterally. S1-S2 audible, no murmurs. Regular rhythm. Abdomen exam; soft, G-tube in place. No organomegaly. No scars are present. Bowel sounds are audible. Extremity exam; no peripheral edema. 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 Results Result Diagram: 04/02/19 0601 04/02/19 0601 Results 24hrs Laboratory Tests Test 04/01/19 13:26 04/01/19 13:27 04/01/19 14:11 04/01/19 14:25 Prothrombin Time 13.3 Prothrombin Time 1.0 Ratio INR International 1.00 Normalized Ratio Activated 28.0 Partial Thrombopl ast Time White Blood Count 16.8 #H Red Blood Count 3.07 #L Hemoglobin 7.3 #L Hematocrit 24.5 #L Mean Corpuscular 79.8 L Volume Mean Corpuscular 23.8 L Hemoglobin Mean Corpuscular 29.8 L Hemoglobin Concen t Red Cell 18.0 H Distribution Width Platelet Count 443 #H Mean Platelet 12.8 H Volume Immature 2.000 H Granulocytes % Neutrophils % 92.7 H Lymphocytes % 3.9 L Monocytes % 1.1 Eosinophils % 0.1 Basophils % 0.2 Nucleated Red 0.1 H Blood Cells % Immature 0.330 H Granulocytes # Neutrophils # 15.6 H Lymphocytes # 0.7 L Monocytes # 0.2 L Eosinophils # 0.0 Basophils # 0.0 Nucleated Red 0.0 Blood Cells # Sodium Level 145 H Potassium Level 5.2 H Chloride Level 114 H Carbon Dioxide 25 Level Anion Gap 6 Blood Urea 24 H Nitrogen Creatinine 0.51 Est Glomerular Filtrat Rate mL/min Glucose Level 138 Calcium Level 9.1 Total Bilirubin 0.3 Direct Bilirubin 0.00 Indirect 0.3 Bilirubin Aspartate Amino 25 Transf (AST/SGOT) Alanine 32 Aminotransferase (ALT/SGPT) Alkaline 100 Phosphatase Troponin I < 0.012 Total Protein 6.3 Albumin 3.1 L Globulin 3.20 Albumin/Globulin 0.96 Ratio POC Venous 2.8 *H Lactate Urine Color STRAW Urine Clarity CLEAR Urine pH 8.0 Urine Specific 1.012 [place] Urine Ketones NEGATIVE Urine Nitrite NEGATIVE Urine Bilirubin NEGATIVE Urine NEGATIVE Urobilinogen Urine Leukocyte 1+ H Esterase Urine Microscopic 9 H RBC Urine Microscopic 12 H WBC Urine Hemoglobin 1+ H Urine Glucose 1+ H Urine Total NEGATIVE Protein Test 04/01/19 14:30 04/01/19 15:32 04/01/19 17:39 04/01/19 23:12 Blood Gas Blood arterial Specimen Source Arterial Blood 04/01/2019 2:20:3 Date Drawn 4 PM Arterial Blood pH 7.464 H (Temp corrected) Arterial Blood 33.2 L pCO2 (Temp correct) Arterial Blood 156.5 H pO2 (Temp corrected) Arterial Blood 23.3 HCO3 Arterial Blood -0.2 Base Excess Arterial Blood 98.9 Oxygen Saturation Girish Test ACCEPTAB Arterial Blood Left Radial Gas Puncture Site Arterial 0.1 Blood Carboxyhemo globin Arterial Blood 0.4 Methemoglobin Blood Gas A-a O2 90.5 H Differential Oxyhemoglobin 98.4 Percent Blood Gas 37.0 Temperature Blood Gas 16.0 Respiration Rate Blood Gas Actual 17 Respiration Rate Blood Gas VENT - AC Modality FiO2 40.0 Blood Gas Tidal 500.0 Volume Blood Gas High 5.0 PEEP Setting Blood Gas DR Nilda GONZALES MD Critical Value Read Back Blood Gas T [facility] Notified Whom Blood Gas 04/01/2019 2:27:2 Notified Time 3 PM Lactic Acid Level 2.7 *H 2.7 *H Bedside Glucose 53 L Test 04/01/19 23:27 04/01/19 23:42 04/02/19 05:42 04/02/19 06:01 Bedside Glucose 172 112 100 White Blood Count 12.7 #H Red Blood Count 2.59 L Hemoglobin 6.2 *L Hematocrit 20.4 L Mean Corpuscular 78.8 L Volume Mean Corpuscular 23.9 L Hemoglobin Mean Corpuscular 30.4 L Hemoglobin Concen t Red Cell 17.9 H Distribution Width Platelet Count 426 H Mean Platelet 12.1 H Volume Immature 2.100 H Granulocytes % Neutrophils % 80.6 H Segmented 72 Neutrophils % (Manual) Band Neutrophils 17 H % (Manual) Lymphocytes % 13.3 L Lymphocytes % 7 L (Manual) Monocytes % 3.0 Monocytes % 3 (Manual) Eosinophils % 0.8 Eosinophils % 1 (Manual) Basophils % 0.2 Nucleated Red 0.2 H Blood Cells % Immature 0.260 H Granulocytes # Neutrophils # 10.2 H Neutrophils # 9.4 H (Manual) Band Neutrophils 2.1 H # Lymphocytes 0.8 (Manual) Lymphocytes # 1.7 Monocytes # 0.4 Monocytes # 0.3 (Manual) Eosinophils # 0.1 Basophils # 0.0 Nucleated Red 0.0 Blood Cells # Pathologist YES Review (Hematolog y) Platelet Estimate NORMAL Giant Platelets 2 H Polychromasia 3+ Hypochromasia 2+ Anisocytosis 2+ Microcytosis 2+ Ovalocytes 1+ Stomatocytes 1+ Rouleau 1+ Sodium Level 143 Potassium Level 3.7 Chloride Level 115 H Carbon Dioxide 23 Level Anion Gap 5 Blood Urea 20 Nitrogen Creatinine 0.43 L Est Glomerular Filtrat Rate mL/min Glucose Level 90 # Lactic Acid Level 1.4 Calcium Level 8.2 L Iron Level < 10 L Total Iron 257 Binding Capacity Percent Iron Saturation Ferritin 165.0 Lactate 486 Dehydrogenase Vitamin B12 Level > 1000 H Folate > 20.0 H Thyroid 2.170 Stimulating Hormone (TSH) Test 04/02/19 06:18 04/02/19 08:57 Random Gentamicin 7.5 Level Bedside Glucose 117 Medications Medication Current Medications Pantoprazole (Protonix Tab) 40 mg DAILY@06 PO Last administered on 04/02/19at 06:16; Admin Dose 40 MG; Start 04/02/19 at 06:00 Albuterol (Proventil 0.083% (Neb)) 2.5 mg Q3H RESP THERAPY PRN NEB WHEEZING AND SOB; Start 04/01/19 at 22:00 Amlodipine Besylate (Norvasc) 10 mg DAILY GTB Last administered on 04/02/19at 09:05; Admin Dose 10 MG; Start 04/02/19 at 09:00 Ascorbic Acid (Vitamin C) 500 mg BID GTB Last administered on 04/02/19at 09:05; Admin Dose 500 MG; Start 04/02/19 at 09:00 Chlorhexidine Gluconate (Peridex) 15 ml Q12H MM Last administered on 04/01/19at 23:10; Admin Dose 15 ML; Start 04/01/19 at 22:00 Clopidogrel Bisulfate (plaVIX) 75 mg DAILY GTB Last administered on 04/02/19at 09:05; Admin Dose 75 MG; Start 04/02/19 at 09:00 Docusate Sodium (Colace Liquid Cup) 100 mg QHS GTB ; Start 04/02/19 at 21:00 Ferrous Sulfate (Feosol Liquid Cup) 300 mg DAILY GTB Last administered on 04/02/19at 09:02; Admin Dose 300 MG; Start 04/02/19 at 09:00 Acetaminophen/ Hydrocodone Bitart ([place] (5/325)) 1 tab BID GTB ; Start 04/02/19 at 09:00 Levetiracetam (Keppra Liquid) 500 mg BID GTB Last administered on 04/02/19at 09:02; Admin Dose 500 MG; Start 04/02/19 at 09:00 Losartan Potassium (Cozaar) 100 mg DAILY GTB Last administered on 04/02/19at 09:05; Admin Dose 100 MG; Start 04/02/19 at 09:00 Metformin HCl (Glucophage) 500 mg WITH BREAKFAST DINNE GTB Last administered on 04/02/19at 09:06; Admin Dose 500 MG; Start 04/02/19 at 07:55 Albuterol (Proventil 0.083% (Neb)) 1.25 mg Q6H RESP THERAPY HHN Last administered on 04/02/19at 08:03; Admin Dose 1.25 MG; Start 04/02/19 at 02:00 Miscellaneous Information 1 ea NOTE XX ; Start 04/01/19 at 22:00 Glucose (Glutose) 15 gm Q15M PRN PO DECREASED GLUCOSE; Start 04/01/19 at 22:00 Glucose (Glutose) 22.5 gm Q15M PRN PO DECREASED GLUCOSE; Start 04/01/19 at 22:00 Dextrose (D50w Syringe) 25 ml Q15M PRN IV DECREASED GLUCOSE Last administered on 04/01/19at 23:21; Admin Dose 25 ML; Start 04/01/19 at 22:00 Dextrose (D50w Syringe) 50 ml Q15M PRN IV DECREASED GLUCOSE; Start 04/01/19 at 22:00 Glucagon (Glucagen) 1 mg Q15M PRN IM DECREASED GLUCOSE; Start 04/01/19 at 22:00 Glucose (Glutose) 15 gm Q15M PRN BUCCAL DECREASED GLUCOSE; Start 04/01/19 at 22:00 Sodium Chloride 1,000 ml @ 40 mls/hr Q24H IV Last administered on 04/01/19at 23:11; Admin Dose 40 MLS/HR; Start 04/01/19 at 21:30 Gentamicin Sulfate (Gentamicin Iv Per Pharmacy) GENTAMICIN PER PHARMACY NOTE XX ; Start 04/01/19 at 21:30 Gentamicin Sulfate 260 mg/ Sodium Chloride 106.5 ml @ 103.75 mls/ hr Q24H IVPB Last administered on 04/02/19at 00:02; Admin Dose 103.75 MLS/HR; Start 04/01/19 at 23:00 Insulin Glargine (Lantus) 40 units Q12 SC Last administered on 04/02/19at 09:02; Admin Dose 40 UNITS; Start 04/02/19 at 09:00 Insulin Aspart (Novolog Insulin Pen) NOVOLOG *MILD* ALGORI... Q4 SC ; Start 04/02/19 at 05:00 Miscellaneous Information (Pending [facility] Order For Wound Care) This patient valenzuela... PRN PRN XX WOUND CARE; Start 04/02/19 at 05:00 Acetaminophen (Tylenol Liquid) 650 mg Q4H PRN PO MILD PAIN(1-3)OR ELEVATED TEMP Last administered on 04/02/19at 09:03; Admin Dose 650 MG; Start 04/02/19 at 08:30 ADRIANA TOVAR 18, 2019 11:01
[2019-04-02] MEDS: CHLORHEXIDINE GLUCONATE 15 ML UD CUP MM SCH ×2 (11:40→21:48)
--- NOTE | 2019-04-02 12:59 | PN ---
Date/Time of Note Date/Time of Note DATE: 04/02/19 TIME: 12:52 Assessment/Plan VTE Prophylaxis Risk score (from Ns)>0 risk: 6 SCD applied (from Ns): Yes Pharmacological prophylaxis: NA/contraindicated Pharm contraindication: bleeding Lines/Catheters IV [facility]from [facility] Saline Lock Urinary Cath still in place: Yes Reason Cath still needed: urinary retention Assessment/Plan Hospital Course Patient spikes fever, tachycardic, pending blood transfusion patient is awake however noncommunicative on ventilatory support via tracheostomy. Assessment/Plan - Sepsis secondary to tracheobronchitis. Based on recent intensity of sputum culture from [facility] facility, patient is started on IV gentamicin dosin g as per pharmacy. Follow-up on cultures. Dr. Mcmullen is following in infection disease consultation. - Ventilator dependent respiratory failure. Dr. De La Torre is following in pulmonology consultation - Hypertension. Continue Norvasc and losartan. - Diabetes. Continue Lantus and sliding scale insulin in addition to metformin. - Seizure disorder, stable with current dose of Keppra. - Anemia, most likely anemia of chronic disease. - Hx of CVA, continue Plavix. -Multiple pressure ulcers continue wound care per wound care consult, offloading, air mattress, optimize nutrition. Further recommendations based on clinical course. Plan of care discussed with Dr. Mera. Result Diagram: 04/02/19 0601 04/02/19 0601 Results 24hrs Laboratory Tests Test 04/01/19 13:26 04/01/19 13:27 04/01/19 14:11 04/01/19 14:25 Prothrombin Time 13.3 Prothrombin Time 1.0 Ratio INR International 1.00 Normalized Ratio Activated 28.0 Partial Thrombopl ast Time White Blood Count 16.8 #H Red Blood Count 3.07 #L Hemoglobin 7.3 #L Hematocrit 24.5 #L Mean Corpuscular 79.8 L Volume Mean Corpuscular 23.8 L Hemoglobin Mean Corpuscular 29.8 L Hemoglobin Concen t Red Cell 18.0 H Distribution Width Platelet Count 443 #H Mean Platelet 12.8 H Volume Immature 2.000 H Granulocytes % Neutrophils % 92.7 H Lymphocytes % 3.9 L Monocytes % 1.1 Eosinophils % 0.1 Basophils % 0.2 Nucleated Red 0.1 H Blood Cells % Immature 0.330 H Granulocytes # Neutrophils # 15.6 H Lymphocytes # 0.7 L Monocytes # 0.2 L Eosinophils # 0.0 Basophils # 0.0 Nucleated Red 0.0 Blood Cells # Sodium Level 145 H Potassium Level 5.2 H Chloride Level 114 H Carbon Dioxide 25 Level Anion Gap 6 Blood Urea 24 H Nitrogen Creatinine 0.51 Est Glomerular Filtrat Rate mL/min Glucose Level 138 Calcium Level 9.1 Total Bilirubin 0.3 Direct Bilirubin 0.00 Indirect 0.3 Bilirubin Aspartate Amino 25 Transf (AST/SGOT) Alanine 32 Aminotransferase (ALT/SGPT) Alkaline 100 Phosphatase Troponin I < 0.012 Total Protein 6.3 Albumin 3.1 L Globulin 3.20 Albumin/Globulin 0.96 Ratio POC Venous 2.8 *H Lactate Urine Color STRAW Urine Clarity CLEAR Urine pH 8.0 Urine Specific 1.012 [place] Urine Ketones NEGATIVE Urine Nitrite NEGATIVE Urine Bilirubin NEGATIVE Urine NEGATIVE Urobilinogen Urine Leukocyte 1+ H Esterase Urine Microscopic 9 H RBC Urine Microscopic 12 H WBC Urine Hemoglobin 1+ H Urine Glucose 1+ H Urine Total NEGATIVE Protein Test 04/01/19 14:30 04/01/19 15:32 04/01/19 17:39 04/01/19 23:12 Blood Gas Blood arterial Specimen Source Arterial Blood 04/01/2019 2:20:3 Date Drawn 4 PM Arterial Blood pH 7.464 H (Temp corrected) Arterial Blood 33.2 L pCO2 (Temp correct) Arterial Blood 156.5 H pO2 (Temp corrected) Arterial Blood 23.3 HCO3 Arterial Blood -0.2 Base Excess Arterial Blood 98.9 Oxygen Saturation Girish Test ACCEPTAB Arterial Blood Left Radial Gas Puncture Site Arterial 0.1 Blood Carboxyhemo globin Arterial Blood 0.4 Methemoglobin Blood Gas A-a O2 90.5 H Differential Oxyhemoglobin 98.4 Percent Blood Gas 37.0 Temperature Blood Gas 16.0 Respiration Rate Blood Gas Actual 17 Respiration Rate Blood Gas VENT - AC Modality FiO2 40.0 Blood Gas Tidal 500.0 Volume Blood Gas High 5.0 PEEP Setting Blood Gas DR Nilda GONZALES MD Critical Value Read Back Blood Gas [facility] Notified Whom Blood Gas 04/01/2019 2:27:2 Notified Time 3 PM Lactic Acid Level 2.7 *H 2.7 *H Bedside Glucose 53 L Test 04/01/19 23:27 04/01/19 23:42 04/02/19 05:42 04/02/19 06:01 Bedside Glucose 172 112 100 White Blood Count 12.7 #H Red Blood Count 2.59 L Hemoglobin 6.2 *L Hematocrit 20.4 L Mean Corpuscular 78.8 L Volume Mean Corpuscular 23.9 L Hemoglobin Mean Corpuscular 30.4 L Hemoglobin Concen t Red Cell 17.9 H Distribution Width Platelet Count 426 H Mean Platelet 12.1 H Volume Immature 2.100 H Granulocytes % Neutrophils % 80.6 H Segmented 72 Neutrophils % (Manual) Band Neutrophils 17 H % (Manual) Lymphocytes % 13.3 L Lymphocytes % 7 L (Manual) Monocytes % 3.0 Monocytes % 3 (Manual) Eosinophils % 0.8 Eosinophils % 1 (Manual) Basophils % 0.2 Nucleated Red 0.2 H Blood Cells % Immature 0.260 H Granulocytes # Neutrophils # 10.2 H Neutrophils # 9.4 H (Manual) Band Neutrophils 2.1 H # Lymphocytes 0.8 (Manual) Lymphocytes # 1.7 Monocytes # 0.4 Monocytes # 0.3 (Manual) Eosinophils # 0.1 Basophils # 0.0 Nucleated Red 0.0 Blood Cells # Pathologist YES Review (Hematolog y) Platelet Estimate NORMAL Giant Platelets 2 H Polychromasia 3+ Hypochromasia 2+ Anisocytosis 2+ Microcytosis 2+ Ovalocytes 1+ Stomatocytes 1+ Rouleau 1+ Sodium Level 143 Potassium Level 3.7 Chloride Level 115 H Carbon Dioxide 23 Level Anion Gap 5 Blood Urea 20 Nitrogen Creatinine 0.43 L Est Glomerular Filtrat Rate mL/min Glucose Level 90 # Lactic Acid Level 1.4 Calcium Level 8.2 L Iron Level < 10 L Total Iron 257 Binding Capacity Percent Iron Saturation Ferritin 165.0 Lactate 486 Dehydrogenase Vitamin B12 Level > 1000 H Folate > 20.0 H Thyroid 2.170 Stimulating Hormone (TSH) Test 04/02/19 06:18 04/02/19 08:57 04/02/19 12:26 Random Gentamicin 7.5 Level Bedside Glucose 117 101 Exam/Review of Systems Exam Vitals Vital Signs Date Temp Pulse Resp B/P (MAP) Pulse Ox O2 O2 Flow FiO2 Time Delivery Rate 04/02/19 101 12:29 04/02/19 40 11:32 04/02/19 99.7 18 118/56 99 11:24 (76) 04/02/19 Mechanical 04:04 Ventilator Intake and Output 04/01/19 04/01/19 04/02/19 1515:00 23:00 07:00 IntakeIntake Total 615 ml OutputOutput Total 1200 ml BalanceBalance -585 ml Constitutional: alert, non-verbal Head: normocephalic Neck: supple Respiratory: congested cough, diminished breath sounds Cardiovascular: regular rate and rhythm Gastrointestinal: soft, non-tender, other (G-tube) Musculoskeletal: nl extremities to inspection Extremities: normal pulses Neurological: confused Skin: nl turgor, other (Multiple pressure ulcers) Results Results 24hrs Laboratory Tests Test 04/01/19 13:26 04/01/19 13:27 04/01/19 14:11 04/01/19 14:25 Prothrombin Time 13.3 Prothrombin Time 1.0 Ratio INR International 1.00 Normalized Ratio Activated 28.0 Partial Thrombopl ast Time White Blood Count 16.8 #H Red Blood Count 3.07 #L Hemoglobin 7.3 #L Hematocrit 24.5 #L Mean Corpuscular 79.8 L Volume Mean Corpuscular 23.8 L Hemoglobin Mean Corpuscular 29.8 L Hemoglobin Concen t Red Cell 18.0 H Distribution Width Platelet Count 443 #H Mean Platelet 12.8 H Volume Immature 2.000 H Granulocytes % Neutrophils % 92.7 H Lymphocytes % 3.9 L Monocytes % 1.1 Eosinophils % 0.1 Basophils % 0.2 Nucleated Red 0.1 H Blood Cells % Immature 0.330 H Granulocytes # Neutrophils # 15.6 H Lymphocytes # 0.7 L Monocytes # 0.2 L Eosinophils # 0.0 Basophils # 0.0 Nucleated Red 0.0 Blood Cells # Sodium Level 145 H Potassium Level 5.2 H Chloride Level 114 H Carbon Dioxide 25 Level Anion Gap 6 Blood Urea 24 H Nitrogen Creatinine 0.51 Est Glomerular Filtrat Rate mL/min Glucose Level 138 Calcium Level 9.1 Total Bilirubin 0.3 Direct Bilirubin 0.00 Indirect 0.3 Bilirubin Aspartate Amino 25 Transf (AST/SGOT) Alanine 32 Aminotransferase (ALT/SGPT) Alkaline 100 Phosphatase Troponin I < 0.012 Total Protein 6.3 Albumin 3.1 L Globulin 3.20 Albumin/Globulin 0.96 Ratio POC Venous 2.8 *H Lactate Urine Color STRAW Urine Clarity CLEAR Urine pH 8.0 Urine Specific 1.012 [place] Urine Ketones NEGATIVE Urine Nitrite NEGATIVE Urine Bilirubin NEGATIVE Urine NEGATIVE Urobilinogen Urine Leukocyte 1+ H Esterase Urine Microscopic 9 H RBC Urine Microscopic 12 H WBC Urine Hemoglobin 1+ H Urine Glucose 1+ H Urine Total NEGATIVE Protein Test 04/01/19 14:30 04/01/19 15:32 04/01/19 17:39 04/01/19 23:12 Blood Gas Blood arterial Specimen Source Arterial Blood 04/01/2019 2:20:3 Date Drawn 4 PM Arterial Blood pH 7.464 H (Temp corrected) Arterial Blood 33.2 L pCO2 (Temp correct) Arterial Blood 156.5 H pO2 (Temp corrected) Arterial Blood 23.3 HCO3 Arterial Blood -0.2 Base Excess Arterial Blood 98.9 Oxygen Saturation Girish Test ACCEPTAB Arterial Blood Left Radial Gas Puncture Site Arterial 0.1 Blood Carboxyhemo globin Arterial Blood 0.4 Methemoglobin Blood Gas A-a O2 90.5 H Differential Oxyhemoglobin 98.4 Percent Blood Gas 37.0 Temperature Blood Gas 16.0 Respiration Rate Blood Gas Actual 17 Respiration Rate Blood Gas VENT - AC Modality FiO2 40.0 Blood Gas Tidal 500.0 Volume Blood Gas High 5.0 PEEP Setting Blood Gas DR Nilda GONZALES MD Critical Value Read Back Blood Gas [facility] Notified Whom Blood Gas 04/01/2019 2:27:2 Notified Time 3 PM Lactic Acid Level 2.7 *H 2.7 *H Bedside Glucose 53 L Test 04/01/19 23:27 04/01/19 23:42 04/02/19 05:42 04/02/19 06:01 Bedside Glucose 172 112 100 White Blood Count 12.7 #H Red Blood Count 2.59 L Hemoglobin 6.2 *L Hematocrit 20.4 L Mean Corpuscular 78.8 L Volume Mean Corpuscular 23.9 L Hemoglobin Mean Corpuscular 30.4 L Hemoglobin Concen t Red Cell 17.9 H Distribution Width Platelet Count 426 H Mean Platelet 12.1 H Volume Immature 2.100 H Granulocytes % Neutrophils % 80.6 H Segmented 72 Neutrophils % (Manual) Band Neutrophils 17 H % (Manual) Lymphocytes % 13.3 L Lymphocytes % 7 L (Manual) Monocytes % 3.0 Monocytes % 3 (Manual) Eosinophils % 0.8 Eosinophils % 1 (Manual) Basophils % 0.2 Nucleated Red 0.2 H Blood Cells % Immature 0.260 H Granulocytes # Neutrophils # 10.2 H Neutrophils # 9.4 H (Manual) Band Neutrophils 2.1 H # Lymphocytes 0.8 (Manual) Lymphocytes # 1.7 Monocytes # 0.4 Monocytes # 0.3 (Manual) Eosinophils # 0.1 Basophils # 0.0 Nucleated Red 0.0 Blood Cells # Pathologist YES Review (Hematolog y) Platelet Estimate NORMAL Giant Platelets 2 H Polychromasia 3+ Hypochromasia 2+ Anisocytosis 2+ Microcytosis 2+ Ovalocytes 1+ Stomatocytes 1+ Rouleau 1+ Sodium Level 143 Potassium Level 3.7 Chloride Level 115 H Carbon Dioxide 23 Level Anion Gap 5 Blood Urea 20 Nitrogen Creatinine 0.43 L Est Glomerular Filtrat Rate mL/min Glucose Level 90 # Lactic Acid Level 1.4 Calcium Level 8.2 L Iron Level < 10 L Total Iron 257 Binding Capacity Percent Iron Saturation Ferritin 165.0 Lactate 486 Dehydrogenase Vitamin B12 Level > 1000 H Folate > 20.0 H Thyroid 2.170 Stimulating Hormone (TSH) Test 04/02/19 06:18 04/02/19 08:57 04/02/19 12:26 Random Gentamicin 7.5 Level Bedside Glucose 117 101 Medications Medication Current Medications Pantoprazole (Protonix Tab) 40 mg DAILY@06 PO Last administered on 04/02/19at 06:16; Admin Dose 40 MG; Start 04/02/19 at 06:00 Albuterol (Proventil 0.083% (Neb)) 2.5 mg Q3H RESP THERAPY PRN NEB WHEEZING AND SOB; Start 04/01/19 at 22:00 Amlodipine Besylate (Norvasc) 10 mg DAILY GTB Last administered on 04/02/19at 09:05; Admin Dose 10 MG; Start 04/02/19 at 09:00 Ascorbic Acid (Vitamin C) 500 mg BID GTB Last administered on 04/02/19at 09:05; Admin Dose 500 MG; Start 04/02/19 at 09:00 Chlorhexidine Gluconate (Peridex) 15 ml Q12H MM Last administered on 04/02/19at 11:40; Admin Dose 15 ML; Start 04/01/19 at 22:00 Clopidogrel Bisulfate (plaVIX) 75 mg DAILY GTB Last administered on 04/02/19at 09:05; Admin Dose 75 MG; Start 04/02/19 at 09:00 Docusate Sodium (Colace Liquid Cup) 100 mg QHS GTB ; Start 04/02/19 at 21:00 Ferrous Sulfate (Feosol Liquid Cup) 300 mg DAILY GTB Last administered on 04/02/19at 09:02; Admin Dose 300 MG; Start 04/02/19 at 09:00 Acetaminophen/ Hydrocodone Bitart ([place] (5/325)) 1 tab BID GTB ; Start 04/02/19 at 09:00 Levetiracetam (Keppra Liquid) 500 mg BID GTB Last administered on 04/02/19at 09:02; Admin Dose 500 MG; Start 04/02/19 at 09:00 Losartan Potassium (Cozaar) 100 mg DAILY GTB Last administered on 04/02/19at 09:05; Admin Dose 100 MG; Start 04/02/19 at 09:00 Metformin HCl (Glucophage) 500 mg WITH BREAKFAST DINNE GTB Last administered on 04/02/19at 09:06; Admin Dose 500 MG; Start 04/02/19 at 07:55 Albuterol (Proventil 0.083% (Neb)) 1.25 mg Q6H RESP THERAPY HHN Last administered on 04/02/19at 08:03; Admin Dose 1.25 MG; Start 04/02/19 at 02:00 Miscellaneous Information 1 ea NOTE XX ; Start 04/01/19 at 22:00 Glucose (Glutose) 15 gm Q15M PRN PO DECREASED GLUCOSE; Start 04/01/19 at 22:00 Glucose (Glutose) 22.5 gm Q15M PRN PO DECREASED GLUCOSE; Start 04/01/19 at 22:00 Dextrose (D50w Syringe) 25 ml Q15M PRN IV DECREASED GLUCOSE Last administered on 04/01/19at 23:21; Admin Dose 25 ML; Start 04/01/19 at 22:00 Dextrose (D50w Syringe) 50 ml Q15M PRN IV DECREASED GLUCOSE; Start 04/01/19 at 22:00 Glucagon (Glucagen) 1 mg Q15M PRN IM DECREASED GLUCOSE; Start 04/01/19 at 22:00 Glucose (Glutose) 15 gm Q15M PRN BUCCAL DECREASED GLUCOSE; Start 04/01/19 at 22:00 Sodium Chloride 1,000 ml @ 40 mls/hr Q24H IV Last administered on 04/01/19at 23:11; Admin Dose 40 MLS/HR; Start 04/01/19 at 21:30 Gentamicin Sulfate (Gentamicin Iv Per Pharmacy) GENTAMICIN PER PHARMACY NOTE XX ; Start 04/01/19 at 21:30 Insulin Glargine (Lantus) 40 units Q12 SC Last administered on 04/02/19at 09:02; Admin Dose 40 UNITS; Start 04/02/19 at 09:00 Insulin Aspart (Novolog Insulin Pen) NOVOLOG *MILD* ALGORI... Q4 SC ; Start 04/02/19 at 05:00 Miscellaneous Information (Pending Santyl Order For Wound Care) This patient valenzuela... PRN PRN XX WOUND CARE; Start 04/02/19 at 05:00 Acetaminophen (Tylenol Liquid) 650 mg Q4H PRN PO MILD PAIN(1-3)OR ELEVATED TEMP Last administered on 04/02/19at 09:03; Admin Dose 650 MG; Start 04/02/19 at 08:30 Zinc Sulfate (Zinc Sulfate) 220 mg DAILY GTB ; Start 04/03/19 at 09:00; Stop 04/16/19 at 08:59 Multivitamins/ Minerals (Theragran-M) 1 tab DAILY GTB ; Start 04/03/19 at 09:00 Gentamicin Sulfate 260 mg/ Sodium Chloride 106.5 ml @ 106.5 mls/ hr Q36H IVPB ; Start 04/03/19 at 12:00 DWAYNE CALDERON Apr 02, 2019 12:59
--- NOTE | 2019-04-02 13:38 | CONS ---
Assessment/Plan Assessment/Plan Hospital Course (Demo Recall) Patient is spiking fevers with a T-max of 101.2 this morning blood cultures drawn in ER yesterday preliminary negative urine culture negative WBC 12.7 H&H 6.2 and 20.4 platelets 426 bands 17 BUN 20 creatinine 0.43 Chest x-ray this morning revealed bilateral chronic lung changes no evidence of acute cardiopulmonary disease Indwelling straight back Lane Allergies: Levaquin Antimicrobials: Gentamicin Sputum culture back at the facility grew multidrug-resistant gram-negative peace organisms resistant to meropenem sepsis susceptible to Fortaz and aminoglycosides Physical examination: This is a chronically ill-appearing elderly woman who is noncommunicative in no distress. Head atraumatic normocephalic sclera nonicteric neck is supple chest rise symmetrical breath sounds diminished bases heart S1-S2 abdomen obese soft bowel sounds hypoactive extremities contractured without cyanosis skin patient has unstageable chronic wound on her sacrum sacrum and necrotic wounds on the feet Assessment: 1. Sepsis 2. UTI per urinalysis 3. Acute tracheobronchitis 4. Chronic respiratory failure and dysphagia 5. Multiple chronic wounds 6. History of CVA 7. Acute on chronic anemia 8. Diabetes 9. Seizure disorder Plan: We are going to start patient on Fortaz and restart vancomycin given multiple wounds, follow urine culture, follow pulmonary recommendations, transfuse as needed Consultation Date/Type/Reason Admit Date/Time Apr 01, 2019 at 16:23 Initial Consult Date 04/02/19 Type of Consult id Date/Time of Note DATE: 04/02/19 TIME: 13:33 Exam/Review of Systems Exam Vitals Vital Signs Date Temp Pulse Resp B/P (MAP) Pulse Ox O2 O2 Flow FiO2 Time Delivery Rate 04/02/19 100.2 13:10 04/02/19 101 12:29 04/02/19 40 11:32 04/02/19 18 118/56 99 11:24 (76) 04/02/19 [place] 04:04 l Ventilato r Intake and Output 04/01/19 04/01/19 04/02/19 1515:00 23:00 07:00 IntakeIntake Total 615 ml OutputOutput Total 1200 ml BalanceBalance -585 ml Results Result Diagram: 04/02/19 0601 04/02/19 0601 Results 24hrs Laboratory Tests Test 04/01/19 14:11 04/01/19 14:25 04/01/19 14:30 04/01/19 15:32 POC Venous 2.8 *H Lactate Urine Color STRAW Urine Clarity CLEAR Urine pH 8.0 Urine Specific 1.012 [place] Urine Ketones NEGATIVE Urine Nitrite NEGATIVE Urine Bilirubin NEGATIVE Urine NEGATIVE Urobilinogen Urine Leukocyte 1+ H Esterase Urine Microscopic 9 H RBC Urine Microscopic 12 H WBC Urine Hemoglobin 1+ H Urine Glucose 1+ H Urine Total NEGATIVE Protein Blood Gas Blood arterial Specimen Source Arterial Blood 04/01/2019 2:20:3 Date Drawn 4 PM Arterial Blood pH 7.464 H (Temp corrected) Arterial Blood 33.2 L pCO2 (Temp correct) Arterial Blood 156.5 H pO2 (Temp corrected) Arterial Blood 23.3 HCO3 Arterial Blood -0.2 Base Excess Arterial Blood 98.9 Oxygen Saturation Girish Test ACCEPTAB Arterial Blood Left Radial Gas Puncture Site Arterial 0.1 Blood Carboxyhemo globin Arterial Blood 0.4 Methemoglobin Blood Gas A-a O2 90.5 H Differential Oxyhemoglobin 98.4 Percent Blood Gas 37.0 Temperature Blood Gas 16.0 Respiration Rate Blood Gas Actual 17 Respiration Rate Blood Gas VENT - AC Modality FiO2 40.0 Blood Gas Tidal 500.0 Volume Blood Gas High 5.0 PEEP Setting Blood Gas DR Nilda GONZALES MD Critical Value Read Back Blood Gas [facility] Notified Whom Blood Gas 04/01/2019 2:27:2 Notified Time 3 PM Lactic Acid Level 2.7 *H Test 04/01/19 17:39 04/01/19 23:12 04/01/19 23:27 04/01/19 23:42 Lactic Acid Level 2.7 *H Bedside Glucose 53 L 172 112 Test 04/02/19 05:42 04/02/19 06:01 04/02/19 06:18 04/02/19 08:57 Bedside Glucose 100 117 White Blood Count 12.7 #H Red Blood Count 2.59 L Hemoglobin 6.2 *L Hematocrit 20.4 L Mean Corpuscular 78.8 L Volume Mean Corpuscular 23.9 L Hemoglobin Mean Corpuscular 30.4 L Hemoglobin Concen t Red Cell 17.9 H Distribution Width Platelet Count 426 H Mean Platelet 12.1 H Volume Immature 2.100 H Granulocytes % Neutrophils % 80.6 H Segmented 72 Neutrophils % (Manual) Band Neutrophils 17 H % (Manual) Lymphocytes % 13.3 L Lymphocytes % 7 L (Manual) Monocytes % 3.0 Monocytes % 3 (Manual) Eosinophils % 0.8 Eosinophils % 1 (Manual) Basophils % 0.2 Nucleated Red 0.2 H Blood Cells % Immature 0.260 H Granulocytes # Neutrophils # 10.2 H Neutrophils # 9.4 H (Manual) Band Neutrophils 2.1 H # Lymphocytes 0.8 (Manual) Lymphocytes # 1.7 Monocytes # 0.4 Monocytes # 0.3 (Manual) Eosinophils # 0.1 Basophils # 0.0 Nucleated Red 0.0 Blood Cells # Pathologist YES Review (Hematolog y) Platelet Estimate NORMAL Giant Platelets 2 H Polychromasia 3+ Hypochromasia 2+ Anisocytosis 2+ Microcytosis 2+ Ovalocytes 1+ Stomatocytes 1+ Rouleau 1+ Sodium Level 143 Potassium Level 3.7 Chloride Level 115 H Carbon Dioxide 23 Level Anion Gap 5 Blood Urea 20 Nitrogen Creatinine 0.43 L Est Glomerular Filtrat Rate mL/min Glucose Level 90 # Lactic Acid Level 1.4 Calcium Level 8.2 L Iron Level < 10 L Total Iron 257 Binding Capacity Percent Iron Saturation Ferritin 165.0 Lactate 486 Dehydrogenase Vitamin B12 Level > 1000 H Folate > 20.0 H Thyroid 2.170 Stimulating Hormone (TSH) Random Gentamicin 7.5 Level Test 04/02/19 12:26 04/02/19 13:04 Bedside Glucose 101 87 Medications Medication Current Medications Pantoprazole (Protonix Tab) 40 mg DAILY@06 PO Last administered on 04/02/19at 06:16; Admin Dose 40 MG; Start 04/02/19 at 06:00 Albuterol (Proventil 0.083% (Neb)) 2.5 mg Q3H RESP THERAPY PRN NEB WHEEZING AND SOB; Start 04/01/19 at 22:00 Amlodipine Besylate (Norvasc) 10 mg DAILY GTB Last administered on 04/02/19at 09:05; Admin Dose 10 MG; Start 04/02/19 at 09:00 Ascorbic Acid (Vitamin C) 500 mg BID GTB Last administered on 04/02/19at 09:05; Admin Dose 500 MG; Start 04/02/19 at 09:00 Chlorhexidine Gluconate (Peridex) 15 ml Q12H MM Last administered on 04/02/19at 11:40; Admin Dose 15 ML; Start 04/01/19 at 22:00 Clopidogrel Bisulfate (plaVIX) 75 mg DAILY GTB Last administered on 04/02/19at 09:05; Admin Dose 75 MG; Start 04/02/19 at 09:00 Docusate Sodium (Colace Liquid Cup) 100 mg QHS GTB ; Start 04/02/19 at 21:00 Ferrous Sulfate (Feosol Liquid Cup) 300 mg DAILY GTB Last administered on 04/02/19at 09:02; Admin Dose 300 MG; Start 04/02/19 at 09:00 Acetaminophen/ Hydrocodone Bitart ([place] (5/325)) 1 tab BID GTB ; Start 04/02/19 at 09:00 Levetiracetam (Keppra Liquid) 500 mg BID GTB Last administered on 04/02/19at 09:02; Admin Dose 500 MG; Start 04/02/19 at 09:00 Losartan Potassium (Cozaar) 100 mg DAILY GTB Last administered on 04/02/19at 09:05; Admin Dose 100 MG; Start 04/02/19 at 09:00 Metformin HCl (Glucophage) 500 mg WITH BREAKFAST DINNE GTB Last administered on 04/02/19at 09:06; Admin Dose 500 MG; Start 04/02/19 at 07:55 Albuterol (Proventil 0.083% (Neb)) 1.25 mg Q6H RESP THERAPY HHN Last administered on 04/02/19at 13:04; Admin Dose 1.25 MG; Start 04/02/19 at 02:00 Miscellaneous Information 1 ea NOTE XX ; Start 04/01/19 at 22:00 Glucose (Glutose) 15 gm Q15M PRN PO DECREASED GLUCOSE; Start 04/01/19 at 22:00 Glucose (Glutose) 22.5 gm Q15M PRN PO DECREASED GLUCOSE; Start 04/01/19 at 22:00 Dextrose (D50w Syringe) 25 ml Q15M PRN IV DECREASED GLUCOSE Last administered on 04/01/19at 23:21; Admin Dose 25 ML; Start 04/01/19 at 22:00 Dextrose (D50w Syringe) 50 ml Q15M PRN IV DECREASED GLUCOSE; Start 04/01/19 at 22:00 Glucagon (Glucagen) 1 mg Q15M PRN IM DECREASED GLUCOSE; Start 04/01/19 at 22:00 Glucose (Glutose) 15 gm Q15M PRN BUCCAL DECREASED GLUCOSE; Start 04/01/19 at 22:00 Sodium Chloride 1,000 ml @ 40 mls/hr Q24H IV Last administered on 04/01/19at 23:11; Admin Dose 40 MLS/HR; Start 04/01/19 at 21:30 Gentamicin Sulfate (Gentamicin Iv Per Pharmacy) GENTAMICIN PER PHARMACY NOTE XX ; Start 04/01/19 at 21:30 Insulin Glargine (Lantus) 40 units Q12 SC Last administered on 04/02/19at 09:02; Admin Dose 40 UNITS; Start 04/02/19 at 09:00 Insulin Aspart (Novolog Insulin Pen) NOVOLOG *MILD* ALGORI... Q4 SC ; Start 04/02/19 at 05:00 Miscellaneous Information (Pending Santyl Order For Wound Care) This patient valenzuela... PRN PRN XX WOUND CARE; Start 04/02/19 at 05:00 Acetaminophen (Tylenol Liquid) 650 mg Q4H PRN PO MILD PAIN(1-3)OR ELEVATED TEMP Last administered on 04/02/19at 13:06; Admin Dose 650 MG; Start 04/02/19 at 08:30 Zinc Sulfate (Zinc Sulfate) 220 mg DAILY GTB ; Start 04/03/19 at 09:00; Stop 04/16/19 at 08:59 Multivitamins/ Minerals (Theragran-M) 1 tab DAILY GTB ; Start 04/03/19 at 09:00 Gentamicin Sulfate 260 mg/ Sodium Chloride 106.5 ml @ 106.5 mls/ hr Q36H IVPB ; Start 04/03/19 at 12:00 Miscellaneous Information (*Rx Drug Level Order Reminder*) GENT TROUGH @ 2,300 ON... 2300 ONCE XX ; Start 04/04/19 at 23:00; Stop 04/04/19 at 23:01 ANTHONY JOY NP Apr 02, 2019 13:38
[2019-04-02] MEDS ORDERED: VANCOMYCIN IV PER PHARMACY XX SCH (14:00)
[2019-04-02] MEDS: CEFTAZIDIME 1GM/50 ML (PMX) 50 ML IVPB SCH ×2 (14:31→21:46)
[2019-04-02] MEDS ORDERED: VANCOMYCIN HCL 1.25 GM in SOD CHLORIDE 0.9% 250 ML IVPB ONE (15:00)
[2019-04-02] MEDS: POLYETHYLENE GLYCOL 17 GM PACKET PO SCH (20:13)
[2019-04-02] MEDS: DOCUSATE SODIUM 10 MG/ML (10ML CUP) GTB SCH (20:13)
[2019-04-02] MEDS: SOD CHLORIDE 0.45% 1,000 ML IV SCH (21:30)
[2019-04-03] VITALS (24 sets, daily range): BP systolic 113–147; BP diastolic 53–67; PULSE 87–107; RESP 16–21
[2019-04-03] MEDS: INSULIN ASPART [NOVOLOG] 3 ML PEN SC SCH ×6 (01:00→21:00)
[2019-04-03] MEDS: ALBUTEROL 0.083% (NEB) 2.5 MG/3 ML AMP HHN SCH ×4 (01:25→20:00)
[2019-04-03] MEDS: CEFTAZIDIME 1GM/50 ML (PMX) 50 ML IVPB SCH ×3 (05:53→21:16)
[2019-04-03] MEDS: PANTOPRAZOLE (EC) 40 MG TAB PO SCH (05:53)
[2019-04-03] MEDS: ASCORBIC ACID 500 MG TAB GTB SCH ×2 (08:38→21:13)
[2019-04-03] MEDS: ZINC SULFATE 220 MG CAP GTB SCH (08:38)
[2019-04-03] MEDS: MULTIVITAMINS/MINERALS TAB GTB SCH (08:38)
[2019-04-03] MEDS: LEVETIRACETAM (100 MG/ML) 5ML CUP GTB SCH ×2 (08:38→21:13)
[2019-04-03] MEDS: POLYETHYLENE GLYCOL 17 GM PACKET PO SCH ×2 (08:38→21:13)
[2019-04-03] MEDS: FERROUS SULFATE 60 MG/ML 5ML CUP GTB SCH (08:38)
[2019-04-03] MEDS: CLOPIDOGREL 75 MG TAB GTB SCH (08:38)
[2019-04-03] MEDS: metFORMIN 500 MG TAB GTB SCH ×2 (08:39→17:55)
[2019-04-03] MEDS: LOSARTAN 50 MG TAB GTB SCH (08:40)
[2019-04-03] MEDS: HYDROCODONE/APAP (5/325) TAB GTB SCH ×2 (08:40→21:00)
[2019-04-03] MEDS: AMLODIPINE 10 MG TAB GTB SCH (08:40)
[2019-04-03] MEDS: INSULIN GLARGINE [LANTus] (100 UNITS/ML) SYG SC SCH ×2 (08:53→21:36)
[2019-04-03] MEDS: CHLORHEXIDINE GLUCONATE 15 ML UD CUP MM SCH ×2 (10:40→21:16)
--- NOTE | 2019-04-03 10:59 | CONS ---
DATE OF ADMISSION: 04/01/2019 DATE OF CONSULTATION: 04/02/[address] Buchanan: Thank you for asking me to see Mrs. Ng in GI consultation. HISTORY OF PRESENT ILLNESS: As you know, the patient is a 73-year-old female, is admitted t o the hospital because of upper respiratory infection, which is named as tracheobronchitis. She has fever. She has a high white count and a chest x-ray did not show acute process; however, she was fou nd to have productive sputum and a fever from the GI standpoint, consultation is requested because of anemia. Hemoglobin dropped to 6.2 from 7.3. She has other medical problems including a history of dementia, CVA, COPD, hypertension, ventilator-d ependent with tracheostomy, seizure disorder, and diabetes. She is a resident of [facility]. REVIEW OF SYSTEMS: Indicates as mentioned above. She has a tracheostomy and ventilator dependent. No history of vomiting blood or passing blood from the rectum. She has a G-tube in place for feeding . MEDICATIONS: Prior to admission includes: 1. Loratadine. 2. Clopidogrel. 3. Ferrous sulfate. 4. Amlodipine. 5. Losartan. 6. Hydrocodone. 7. Acetaminophen. 8. Keppra. 9. Aridex. 10. Colace. 11. Insulin. 12. Metformin. 13. Prednisone. 14. Season vitamins. 15. Ascorbic acid. 16. Amino acids. PHYSICAL EXAMINATION: GENERAL: The patient is a 73-year-old female who at this time is lethargic. She is status post tracheostomy, ventilator dependent. VITAL SIGNS: Temperature is 98.8 today, yesterday it was 100, early this morning is 100.2, pulse is 101, blood pressure is 122/60. CARDIOVASCULAR: Normal heart sounds. RESPIRATORY: Occasional wheezing heard bilaterally. ABDOMEN: Showed a G-tube in place, soft abdomen. RECTAL: Showed evidence of one large fecal ball which was removed by me digitally. LABORATORY WORKUP: WBC count 12,200, yesterday it was 16,800, hemoglobin 6.2. The platelet count is 426,000. Potassium 3.7. AST 25, ALT 32, alkaline phosphatase is 100. CLINICAL IMPRESSION: The patient presenting with history of what appears to be tracheobronchitis. S he is on antibiotics currently from the GI standpoint. Hemoglobin dropped to 6.2 and rule out gastro intestinal bleeding either due to peptic ulcer disease, gastrostomy site ulcer disease, gastrointesti nal malignancy. Hypertension, diabetes, respiratory failure, cerebrovascular accident, seizure disor jaquan. PLAN: At this time, recommend upper endoscopy as well as lower endoscopy when the patient is stable. Once again, Dr. Buchanan, thank you for this consultation. Dictated By: MONIKA RODRIGUEZ/ERENDIRA Conf#: [id number] DID#: [id number] CC: BRONSON TYSON MD; MONIKA LEO MD; NICOLE BUCHANAN MD;*EndCC*
[2019-04-03] MEDS ORDERED: PEG/ELECTROLYTES 4L BTL PO ONE (11:00)
[2019-04-03] MEDS ORDERED: GENTAMICIN IVPB SCH (12:00)
[2019-04-03] MEDS ORDERED: SOD CHLORIDE 0.9% IVPB SCH (12:00)
--- NOTE | 2019-04-03 12:19 | CONS ---
Consultation Date/Type/Reason Admit Date/Time Apr 01, 2019 at 16:23 Initial Consult Date 04/02/19 Type of Consult Pulmonary Patient is a 73-year-old lady who was admitted from residential with sepsis. Patient has been diagnosed a UTI and possibly pneumonia. Currently started on appropriate antimicrobial regimen. Patient does have advanced encephalopathy and was unable to give any history by herself whatsoever. Patient however was not in any distress whatsoever. History has been obtained from medical records. Past medical history; 1. VDRF. 2. Tracheostomy and G-tube placement. 3. Advanced encephalopathy. 4. Diabetes. 5. Hypertension. 6. History of seizure disorder. 7. Chronic anemia. Medications; reviewed. Allergies; Levaquin. Social history, family history, occupational history is not available. Review of system; unable to be obtained. General exam; elderly woman, on ventilator via tracheostomy, awake, currently in no distress. Patient is noncommunicative. Date/Time of Note DATE: 04/03/19 TIME: 12:17 24 HR Interval Summary Free Text/Dictation Patient's condition is a stable. Has remained hemodynamically stable. No untoward events reported. General exam; elderly woman, on ventilator via tracheostomy, noncommunicative. Currently in no distress. HEENT exam; supple neck, no JVD. No lymphadenopathy. Midline trachea. No thyromegaly. Patient has multiple carious teeth. Tracheostomy in place. Chest exam; diminished but clear breath sounds. S1-S2 audible, no murmurs. Regular rhythm. Abdomen exam; soft, protuberant. Bowel sounds audible. G-tube in place. No organomegaly. Extremity exam; no peripheral edema. [employer] exam; patient is noncommunicative. Ventilator setting; assist control of 16, tidal volume 500, PEEP of 5, 40% FiO2. Chest x-ray was reviewed from today which is essentially clear. Assessment and recommendations; 1. Patient with history of chronic encephalopathy and VDR F admitted for sepsis due to UTI. Currently on appropriate antimicrobial regimen. 2. Other comorbidities include history of hypertension, diabetes, anemia and seizure disorder. Continue with supportive care. Exam/Review of Systems Exam Vitals Vital Signs Date Temp Pulse Resp B/P (MAP) Pulse Ox O2 O2 Flow FiO2 Time Delivery Rate 04/03/19 73 20 100 30 11:54 04/03/19 98.7 127/58 11:28 (81) 04/03/19 Mechanical 04:01 Ventilator Intake and Output 04/02/19 04/02/19 04/03/19 1515:00 23:00 07:00 IntakeIntake Total 1900 ml 700 ml OutputOutput Total 1450 ml 1700 ml BalanceBalance 450 ml -1000 ml Results Result Diagram: 04/03/19 0759 04/02/19 0601 Results 24hrs Laboratory Tests Test 04/02/19 12:26 04/02/19 13:04 04/02/19 17:02 04/02/19 20:10 Bedside Glucose 101 87 104 132 Test 04/03/19 01:25 04/03/19 05:51 04/03/19 07:17 04/03/19 07:59 Bedside Glucose 85 96 Lab Scanned BLOOD TRANSFUSIO Report N White Blood Count 14.1 H Red Blood Count 3.68 #L Hemoglobin 9.1 #L Hematocrit 29.4 #L Mean Corpuscular 79.9 L Volume Mean Corpuscular 24.7 L Hemoglobin Mean Corpuscular 31.0 L Hemoglobin Concen t Red Cell 16.4 H Distribution Width Platelet Count 434 H Mean Platelet 11.7 H Volume Immature 1.900 H Granulocytes % Neutrophils % 76.5 Lymphocytes % 14.4 L Monocytes % 5.4 Eosinophils % 1.2 Basophils % 0.6 Nucleated Red 0.2 H Blood Cells % Immature 0.270 H Granulocytes # Neutrophils # 10.8 H Lymphocytes # 2.0 Monocytes # 0.8 Eosinophils # 0.2 Basophils # 0.1 Nucleated Red 0.0 Blood Cells # Test 04/03/19 08:36 Bedside Glucose 99 Medications Medication Current Medications Pantoprazole (Protonix Tab) 40 mg DAILY@06 PO Last administered on 04/03/19at 05:53; Admin Dose 40 MG; Start 04/02/19 at 06:00 Albuterol (Proventil 0.083% (Neb)) 2.5 mg Q3H RESP THERAPY PRN NEB WHEEZING AND SOB; Start 04/01/19 at 22:00 Amlodipine Besylate (Norvasc) 10 mg DAILY GTB Last administered on 04/03/19at 08:40; Admin Dose 10 MG; Start 04/02/19 at 09:00 Ascorbic Acid (Vitamin C) 500 mg BID GTB Last administered on 04/03/19 08:38; Admin Dose 500 MG; Start 04/02/19 at 09:00 Chlorhexidine Gluconate (Peridex) 15 ml Q12H MM Last administered on 04/03/19 10:40; Admin Dose 15 ML; Start 04/01/19 at 22:00 Clopidogrel Bisulfate (plaVIX) 75 mg DAILY GTB Last administered on 04/03/19 08:38; Admin Dose 75 MG; Start 04/02/19 at 09:00 Docusate Sodium (Colace Liquid Cup) 100 mg QHS GTB Last administered on 04/02/19 20:13; Admin Dose 100 MG; Start 04/02/19 at 21:00 Ferrous Sulfate (Feosol Liquid Cup) 300 mg DAILY GTB Last administered on 04/03/19 08:38; Admin Dose 300 MG; Start 04/02/19 at 09:00 Acetaminophen/ Hydrocodone Bitart ([place] (5/325)) 1 tab BID GTB ; Start 04/02/19 at 09:00 Levetiracetam (Keppra Liquid) 500 mg BID GTB Last administered on 04/03/19 08:38; Admin Dose 500 MG; Start 04/02/19 at 09:00 Losartan Potassium (Cozaar) 100 mg DAILY GTB Last administered on 04/03/19 08:40; Admin Dose 100 MG; Start 04/02/19 at 09:00 Metformin HCl (Glucophage) 500 mg WITH BREAKFAST DINNE GTB Last administered o n 04/03/19 08:39; Admin Dose 500 MG; Start 04/02/19 at 07:55 Albuterol (Proventil 0.083% (Neb)) 1.25 mg Q6H RESP THERAPY HHN Last administered on 04/03/19 09:09; Admin Dose 1.25 MG; Start 04/02/19 at 02:00 Miscellaneous Information 1 ea NOTE XX ; Start 04/01/19 at 22:00 Glucose (Glutose) 15 gm Q15M PRN PO DECREASED GLUCOSE; Start 04/01/19 at 22:00 Glucose (Glutose) 22.5 gm Q15M PRN PO DECREASED GLUCOSE; Start 04/01/19 at 22:00 Dextrose (D50w Syringe) 25 ml Q15M PRN IV DECREASED GLUCOSE Last administered on 04/01/19at 23:21; Admin Dose 25 ML; Start 04/01/19 at 22:00 Dextrose (D50w Syringe) 50 ml Q15M PRN IV DECREASED GLUCOSE; Start 04/01/19 at 22:00 Glucagon (Glucagen) 1 mg Q15M PRN IM DECREASED GLUCOSE; Start 04/01/19 at 22:00 Glucose (Glutose) 15 gm Q15M PRN BUCCAL DECREASED GLUCOSE; Start 04/01/19 at 22:00 Sodium Chloride 1,000 ml @ 40 mls/hr Q24H IV Last administered on 04/01/19at 23:11; Admin Dose 40 MLS/HR; Start 04/01/19 at 21:30 Insulin Glargine (Lantus) 40 units Q12 SC Last administered on 04/03/19 08:53; Admin Dose 40 UNITS; Start 04/02/19 at 09:00 Insulin Aspart (Novolog Insulin Pen) NOVOLOG *MILD* ALGORI... Q4 SC ; Start 04/02/19 at 05:00 [facility]iscellaneous [facility] This patient valenzuela... PRN PRN XX WOUND CARE; Start 04/02/19 at 05:00 Acetaminophen (Tylenol Liquid) 650 mg Q4H PRN PO MILD PAIN(1-3)OR ELEVATED TEMP Last administered on 04/02/19at 22:49; Admin Dose 650 MG; Start 04/02/19 at 08:30 Zinc Sulfate (Zinc Sulfate) 220 mg DAILY GTB Last administered on 04/03/19 08:38; Admin Dose 220 MG; Start 04/03/19 at 09:00; Stop 04/16/19 at 08:59 Multivitamins/ Minerals (Theragran-M) 1 tab DAILY GTB Last administered on at 08:38; Admin Dose 1 TAB; Start 04/03/19 at 09:00 Ceftazidime 50 ml @ 100 mls/hr Q8 IVPB Last administered on 04/03/19 05:53; Admin Dose 100 MLS/HR; Start 04/02/19 at 14:00 Vancomycin HCl (Vanco Iv Per Pharmacy) VANCOMYCIN PER PHARMACY PER PROTOCOL XX ; Start 04/02/19 at 14:00 Vancomycin HCl 250 ml @ 125 mls/hr Q24H IVPB ; Start 04/03/19 at 15:00 Polyethylene Glycol (Miralax) 17 gm BID PO Last administered on 04/03/19at 08:38; Admin Dose 17 GM; Start 04/02/19 at 21:00 ADRIANA TOVAR 19, 2019 12:19
[2019-04-03] MEDS: DEXTROSE 50% 50 ML SYRINGE IV PRN ×2 (12:44→18:08)
--- NOTE | 2019-04-03 13:44 | CONS ---
Assessment/Plan Assessment/Plan Hospital Course (Demo Recall) 1. Sacral wound: -Recommend podiatry for heel wounds -debridement as needed -local care -frequent turning and off-loading -low air loss mattress -vitamin c -short term zinc -optimize nutrition -Wound culture 2.VDRF with tracheobronchitis -Pulmonary toilet -Antibiotics per sensitivity -Per pulmonary 3. UTI: -abx per sensitivity -frequent bladder emptying/cath care 4. Microcytic hypochromic anemia: No overt bleeding noted; history of CVA currently on Plavix -Monitor and transfuse as needed -Concern for GI bleed> work-up per GI; consider holding anticoagulants if concern for GI bleed 5. Thrombocytosis -Treat infections 6. Hypocalcemia 7. Hypertension -Medical management 8. Diabetes: -Glucose optimization 9. Dysphagia status post PEG -Tube feeds with aspiration precautions Thank you. Patient seen and examined in collaboration with Dr. Butch Red. Consultation Date/Type/Reason Admit Date/Time Apr 01, 2019 at 16:23 Date of Consultation: Apr 03, 2019 Type of Consult Surgical Reason for Consultation Multiple wounds Requesting Provider: DWAYNE CALDERON Date/Time of Note DATE: 04/03/19 TIME: 13:31 Hx of Present Illness Aishwarya Ng is a 73-year-old woman with multiple comorbidities who was sent to the hospital for leukocytosis and sputum positive for Acinetobacter. Additionally, she was noted to have had a drop in H&H. No reports of labored breathing, vomiting, diarrhea, hematemesis, hematochezia, melena, seizures, skin rash. She is currently being treated for tracheobronchitis, placed on katarzyna ropriate antimicrobials antibiotics. She is also being worked up by GI specialist for anemia. Laboratory findings include persistent leukocytosis with intermittent fevers, anemia and thrombocytosis she was also noted to have bacteriuria. Chest imaging shows no evidence of acute cardiopulmonary disease. She was also noted to have multiple wounds. General surgery was asked to evaluate. 12 point review of systems was reviewed and is negative except for as stated in HPI. Past Medical History Dementia CVA VDRF Hypertension Seizure disorder Diabetes Dysphagia status post G-tube placement Home Meds Reported Medications Ascorbic Acid (Vitamin C) 500 Mg Tab, 500 MG GTB BID, TAB 04/01/19 Cran/Vitc/Mannose/Inulin/Brom (Uti-Stat Liquid) 3,875 Mg/30 Ml Liquid, 30 ML GTB BID 04/01/19 Acetaminophen* (Tylenol*) 325 Mg Tablet, 650 MG GTB NEEDED PRN for TRACH TUBE CHANGE, TAB 04/01/19 Amino Acids/Protein Hydrolys (PRO-STAT LIQUID) 30 Ml Liquid.pkt, 30 ML GTB BID SUGAR FREE 04/01/19 Prednisone* (Prednisone*) 20 Mg Tab, 20 MG GTB DAILY, TAB 04/01/19 Potassium Chloride* (Potassium Chloride*) 20 Meq/15 Ml Liquid, 22.5 ML GTB DAILY, ML 04/01/19 Hydrocodone/Acetaminophen ([place] 5-325 Tablet) 1 Each Tablet, 1 EACH GTB BID, TAB 04/01/19 Losartan Potassium* (Losartan Potassium*) 100 Mg Tablet, 100 MG GTB DAILY, TAB HOLD IF SBP<110 OR HR<60 04/01/19 Levetiracetam* (Keppra* (Ped)) 100 Mg/Ml Liq, 5 ML GTB BID for 30 Days, BOTTLE 04/01/19 Metformin Hcl* (Metformin Hcl*) 500 Mg Tablet, 500 MG GTB WITH BREAKFAST DINNE, #60 TAB 04/01/19 Ferrous Sulfate* (Ferrous Sulfate*) 220 Mg/5 Ml Solution, 7.5 ML GTB DAILY, ML 04/01/19 Cranberry Extract (Cranberry) 425 Mg Capsule, 425 MG GTB BID, CAP 04/01/19 Docusate Sodium* (Colace*) 100 Mg Capsule, 100 MG GTB QHS, #30 CAP 04/01/19 Clopidogrel Bisulfate* (Clopidogrel Bisulfate*) 75 Mg Tablet, 75 MG GTB DAILY, #30 TAB 04/01/19 Loratadine* (Loratadine*) 10 Mg Tablet, 10 MG GTB DAILY, #30 TAB 04/01/19 Chlorhexidine Gluconate (Peridex) 473 Ml Mouthwash, 15 ML MM Q12H, BOTTLE 04/01/19 Insulin Glargine,Hum.rec.anlog (Basaglar Kwikpen U-100) 100 Unit/1 Ml Insuln.pen, 63 UNIT SC Q12H, EA 04/01/19 Amlodipine Besylate* (Amlodipine Besylate*) 10 Mg Tablet, 10 MG GTB DAILY, #30 TAB HOLD FOR SBP <110 OR HR<60 04/01/19 Albuterol Sulfate* (Albuterol Sulfate* Neb) 0.083%-3 Ml Neb, 2.5 MG NEB Q3H PRN for WHEEZING AND SOB, #30 VIAL 04/01/19 Discontinued Reported Medications Tramadol HCl (Tramadol HCl) 50 Mg Tablet, 50 MG GTB Q8H PRN for PAIN LEVEL 6-10, #120 TAB 06/19/17 Bisacodyl* (Dulcolax*) 5 Mg Tablet.dr, 10 MG PO DAILY PRN for CONSTIPATION, TAB 06/19/17 Acetaminophen* (Acetaminophen*) 650 Mg Tablet, 650 MG PO Q4 PRN for PAIN AND OR ELEVATED TEMP, #30 TAB 06/19/17 Magnesium Hydroxide* (Milk Of Magnesia*) 400 Mg/5 Ml Oral.susp, 30 ML GTB DAILY PRN for CONSTIPATION, ML 06/19/17 Ipratropium-Albuterol (Ipratropium-Albuterol) 0.5-3 Mg/3 Ml Ampul.neb, 3 ML INHALATION Q4 PRN for SHORTNESS OF BREATH, #30 VIAL 06/19/17 Clonidine Hcl* (Clonidine Hcl*) 0.1 Mg Tab, 0.1 MG GTB Q6 PRN for ELEVATED BLOOD PRESSURE, TAB 06/19/17 Insulin Detemir (Levemir Flextouch) 100 Unit/1 Ml Insuln.pen, 40 UNIT SQ WITH BREAKFAST 06/19/17 Levetiracetam* (Keppra*) 500 Mg/5 Ml Solution, 500 MG GTB BID, BOTTLE 06/19/17 Tramadol HCl (Tramadol HCl) 50 Mg Tablet, 50 MG GTB Q12, #60 TAB 06/19/17 Zinc Sulfate* (Zinc Sulfate*) 220 Mg Tablet, 220 MG GTB DAILY, TAB 06/19/17 Ascorbic Acid* (Vitamin C*) 500 Mg Capsule.sa, 500 MG GTB DAILY, CAP 06/19/17 Clopidogrel Bisulfate (Clopidogrel) 75 Mg Tablet, 75 MG GTB DAILY, #30 TAB 06/19/17 Cephalexin* (Cephalexin*) 500 Mg Capsule, 500 MG GTB Q6, #28 CAP 06/19/17 Losartan Potassium* (Cozaar*) 100 Mg Tablet, 100 MG GTB QHS, #30 TAB 06/19/17 Medications Current Medications Pantoprazole (Protonix Tab) 40 mg DAILY@06 PO Last administered on 04/03/19 05:53; Admin Dose 40 MG; Start 04/02/19 at 06:00 Albuterol (Proventil 0.083% (Neb)) 2.5 mg Q3H RESP THERAPY PRN NEB WHEEZING AND SOB; Start 04/01/19 at 22:00 Amlodipine Besylate (Norvasc) 10 mg DAILY GTB Last administered on 04/03/19 08:40; Admin Dose 10 MG; Start 04/02/19 at 09:00 Ascorbic Acid (Vitamin C) 500 mg BID GTB Last administered on 04/03/19 08:38; Admin Dose 500 MG; Start 04/02/19 at 09:00 Chlorhexidine Gluconate (Peridex) 15 ml Q12H MM Last administered on 04/03/19 10:40; Admin Dose 15 ML; Start 04/01/19 at 22:00 Clopidogrel Bisulfate (plaVIX) 75 mg DAILY GTB Last administered on 04/03/19 08:38; Admin Dose 75 MG; Start 04/02/19 at 09:00 Docusate Sodium (Colace Liquid Cup) 100 mg QHS GTB Last administered on 04/02/19 20:13; Admin Dose 100 MG; Start 04/02/19 at 21:00 Ferrous Sulfate (Feosol Liquid Cup) 300 mg DAILY GTB Last administered on 04/03/19 08:38; Admin Dose 300 MG; Start 04/02/19 at 09:00 Acetaminophen/ Hydrocodone Bitart ([place] (5/325)) 1 tab BID GTB ; Start 04/02/19 at 09:00 Levetiracetam (Keppra Liquid) 500 mg BID GTB Last administered on 04/03/19 08:38; Admin Dose 500 MG; Start 04/02/19 at 09:00 Losartan Potassium (Cozaar) 100 mg DAILY GTB Last administered on 04/03/19 08:40; Admin Dose 100 MG; Start 04/02/19 at 09:00 Metformin HCl (Glucophage) 500 mg WITH BREAKFAST DINNE GTB Last administered on 04/03/19 08:39; Admin Dose 500 MG; Start 04/02/19 at 07:55 Albuterol (Proventil 0.083% (Neb)) 1.25 mg Q6H RESP THERAPY HHN Last administered on 04/03/19at 09:09; Admin Dose 1.25 MG; Start 04/02/19 at 02:00 Miscellaneous Information 1 ea NOTE XX ; Start 04/01/19 at 22:00 Glucose (Glutose) 15 gm Q15M PRN PO DECREASED GLUCOSE; Start 04/01/19 at 22:00 Glucose (Glutose) 22.5 gm Q15M PRN PO DECREASED GLUCOSE; Start 04/01/19 at 22:00 Dextrose (D50w Syringe) 25 ml Q15M PRN IV DECREASED GLUCOSE Last administered on 04/03/19at 12:44; Admin Dose 25 ML; Start 04/01/19 at 22:00 Dextrose (D50w Syringe) 50 ml Q15M PRN IV DECREASED GLUCOSE; Start 04/01/19 at 22:00 Glucagon (Glucagen) 1 mg Q15M PRN IM DECREASED GLUCOSE; Start 04/01/19 at 22:00 Glucose (Glutose) 15 gm Q15M PRN BUCCAL DECREASED GLUCOSE; Start 04/01/19 at 22:00 Insulin Glargine (Lantus) 40 units Q12 SC Last administered on 04/03/19at 08:53; Admin Dose 40 UNITS; Start 04/02/19 at 09:00 Insulin Aspart (Novolog Insulin Pen) NOVOLOG *MILD* ALGORI... Q4 SC ; Start 04/02/19 at 05:00 [facility] This patient valenzuela... PRN PRN XX WOUND CARE; Start 04/02/19 at 05:00 Acetaminophen (Tylenol Liquid) 650 mg Q4H PRN PO MILD PAIN(1-3)OR ELEVATED TEMP Last administered on 04/02/19at 22:49; Admin Dose 650 MG; Start 04/02/19 at 08:30 Zinc Sulfate (Zinc Sulfate) 220 mg DAILY GTB Last administered on 04/03/19at 08:38; Admin Dose 220 MG; Start 04/03/19 at 09:00; Stop 04/16/19 at 08:59 Multivitamins/ Minerals (Theragran-M) 1 tab DAILY GTB Last administered on 04/03/19at 08:38; Admin Dose 1 TAB; Start 04/03/19 at 09:00 Ceftazidime 50 ml @ 100 mls/hr Q8 IVPB Last administered on 04/03/19at 05:53; Admin Dose 100 MLS/HR; Start 04/02/19 at 14:00 Vancomycin HCl (Vanco Iv Per Pharmacy) VANCOMYCIN PER PHARMACY PER PROTOCOL XX ; Start 04/02/19 at 14:00 Vancomycin HCl 250 ml @ 125 mls/hr Q24H IVPB ; Start 04/03/19 at 15:00 Polyethylene Glycol (Miralax) 17 gm BID PO Last administered on 04/03/19at 08:38; Admin Dose 17 GM; Start 04/02/19 at 21:00 Potassium Chloride/Dextrose/ Sod Cl 1,000 ml @ 70 mls/hr [id number] IV ; Start 04/03/19 at 14:00 Allergies: Coded Allergies: levofloxacin (Unverified Allergy, Unknown, 04/01/19) Past Surgical History PEG placement Tracheostomy Past Surgical Hx: other Family History Significant Family History: no pertinent family hx Social History Alcohol Use: none Smoking Status: Unknown if ever smoked Drug Use: none Exam/Review of Systems Exam Vitals Vital Signs Date Temp Pulse Resp B/P (MAP) Pulse Ox O2 O2 Flow FiO2 Time Delivery Rate 04/03/19 73 20 100 30 11:54 04/03/19 98.7 127/58 11:28 (81) 04/03/19 Mechanical 04:01 Ventilator Intake and Output 04/02/19 04/02/19 04/03/19 1515:00 23:00 07:00 IntakeIntake Total 1900 ml 700 ml OutputOutput Total 1450 ml 1700 ml BalanceBalance 450 ml -1000 ml Constitutional: alert; No oriented Psych: nl mood/affect, confusion, other (Nonverbal); No anxiety Head: normocephalic, atraumatic Eyes: nl conjunctiva, EOMI, nl lids, nl sclera ENMT: nl external ears & nose, mucosa pink and moist; No nl lips & teeth (Poor dentition) Neck: supple, non-tender, other (Tracheostomy) Respiratory: normal air movement; No congested cough Cardiovascular: regular rate and rhythm, nl pulses Gastrointestinal: soft, non-tender, other (PEG); No distended Genitourinary - Female: nl external genitalia Musculoskeletal: nl extremities to inspection, nl gait and stance Extremities: normal pulses Neurological: nl mental status, nl speech, nl strength Skin: other (Sacral wound: Minimal slough, minimal periwound erythema, scant drainage; heel wounds With necrotic tissue); No rash or lesions Results Result Diagram: 04/03/19 0759 04/02/19 0601 Results 24hrs Laboratory Tests Test 04/02/19 17:02 04/02/19 20:10 04/03/19 01:25 04/03/19 05:51 Bedside Glucose 104 132 85 96 Test 04/03/19 07:17 04/03/19 07:59 04/03/19 08:36 04/03/19 13:15 Lab Scanned BLOOD TRANSFUSIO Report N White Blood Count 14.1 H Red Blood Count 3.68 #L Hemoglobin 9.1 #L Hematocrit 29.4 #L Mean Corpuscular 79.9 L Volume Mean Corpuscular 24.7 L Hemoglobin Mean Corpuscular 31.0 L Hemoglobin Concen t Red Cell 16.4 H Distribution Width Platelet Count 434 H Mean Platelet 11.7 H Volume Immature 1.900 H Granulocytes % Neutrophils % 76.5 Lymphocytes % 14.4 L Monocytes % 5.4 Eosinophils % 1.2 Basophils % 0.6 Nucleated Red 0.2 H Blood Cells % Immature 0.270 H Granulocytes # Neutrophils # 10.8 H Lymphocytes # 2.0 Monocytes # 0.8 Eosinophils # 0.2 Basophils # 0.1 Nucleated Red 0.0 Blood Cells # Bedside Glucose 99 137 Medications Medication Current Medications Pantoprazole (Protonix Tab) 40 mg DAILY@06 PO Last administered on 04/03/19at 05:53; Admin Dose 40 MG; Start 04/02/19 at 06:00 Albuterol (Proventil 0.083% (Neb)) 2.5 mg Q3H RESP THERAPY PRN NEB WHEEZING AND SOB; Start 04/01/19 at 22:00 Amlodipine Besylate (Norvasc) 10 mg DAILY GTB Last administered on 04/03/19at 08:40; Admin Dose 10 MG; Start 04/02/19 at 09:00 Ascorbic Acid (Vitamin C) 500 mg BID GTB Last administered on 04/03/19at 08:38; Admin Dose 500 MG; Start 04/02/19 at 09:00 Chlorhexidine Gluconate (Peridex) 15 ml Q12H MM Last administered on 04/03/19 10:40; Admin Dose 15 ML; Start 04/01/19 at 22:00 Clopidogrel Bisulfate (plaVIX) 75 mg DAILY GTB Last administered on 04/03/19 08:38; Admin Dose 75 MG; Start 04/02/19 at 09:00 Docusate Sodium (Colace Liquid Cup) 100 mg QHS GTB Last administered on 04/02/19 20:13; Admin Dose 100 MG; Start 04/02/19 at 21:00 Ferrous Sulfate (Feosol Liquid Cup) 300 mg DAILY GTB Last administered on 04/03/19 08:38; Admin Dose 300 MG; Start 04/02/19 at 09:00 Acetaminophen/ Hydrocodone Bitart ([place] (5/325)) 1 tab BID GTB ; Start 04/02/19 at 09:00 Levetiracetam (Keppra Liquid) 500 mg BID GTB Last administered on 04/03/19 08:38; Admin Dose 500 MG; Start 04/02/19 at 09:00 Losartan Potassium (Cozaar) 100 mg DAILY GTB Last administered on 04/03/19 08:40; Admin Dose 100 MG; Start 04/02/19 at 09:00 Metformin HCl (Glucophage) 500 mg WITH BREAKFAST DINNE GTB Last administered on 04/03/19 08:39; Admin Dose 500 MG; Start 04/02/19 at 07:55 Albuterol (Proventil 0.083% (Neb)) 1.25 mg Q6H RESP THERAPY HHN Last administered on 04/03/19 09:09; Admin Dose 1.25 MG; Start 04/02/19 at 02:00 Miscellaneous Information 1 ea NOTE XX ; Start 04/01/19 at 22:00 Glucose (Glutose) 15 gm Q15M PRN PO DECREASED GLUCOSE; Start 04/01/19 at 22:00 Glucose (Glutose) 22.5 gm Q15M PRN PO DECREASED GLUCOSE; Start 04/01/19 at 22:00 Dextrose (D50w Syringe) 25 ml Q15M PRN IV DECREASED GLUCOSE Last administered on 04/03/19at 12:44; Admin Dose 25 ML; Start 04/01/19 at 22:00 Dextrose (D50w Syringe) 50 ml Q15M PRN IV DECREASED GLUCOSE; Start 04/01/19 at 22:00 Glucagon (Glucagen) 1 mg Q15M PRN IM DECREASED GLUCOSE; Start 04/01/19 at 22:00 Glucose (Glutose) 15 gm Q15M PRN BUCCAL DECREASED GLUCOSE; Start 04/01/19 at 22:00 Insulin Glargine (Lantus) 40 units Q12 SC Last administered on 04/03/19at 08:53; Admin Dose 40 UNITS; Start 04/02/19 at 09:00 Insulin Aspart (Novolog Insulin Pen) NOVOLOG *MILD* ALGORI... Q4 SC ; Start 04/02/19 at 05:00 Miscellaneous Information [facility] This patient valenzuela... PRN PRN XX WOUND CARE; Start 04/02/19 at 05:00 Acetaminophen (Tylenol Liquid) 650 mg Q4H PRN PO MILD PAIN(1-3)OR ELEVATED TEMP Last administered on 04/02/19at 22:49; Admin Dose 650 MG; Start 04/02/19 at 08:30 Zinc Sulfate (Zinc Sulfate) 220 mg DAILY GTB Last administered on 04/03/19at 08:38; Admin Dose 220 MG; Start 04/03/19 at 09:00; Stop 04/16/19 at 08:59 Multivitamins/ Minerals (Theragran-M) 1 tab DAILY GTB Last administered on 04/03/19at 08:38; Admin Dose 1 TAB; Start 04/03/19 at 09:00 Ceftazidime 50 ml @ 100 mls/hr Q8 IVPB Last administered on 04/03/19at 05:53; Admin Dose 100 MLS/HR; Start 04/02/19 at 14:00 Vancomycin HCl (Vanco Iv Per Pharmacy) VANCOMYCIN PER PHARMACY PER PROTOCOL XX ; Start 04/02/19 at 14:00 Vancomycin HCl 250 ml @ 125 mls/hr Q24H IVPB ; Start 04/03/19 at 15:00 Polyethylene Glycol (Miralax) 17 gm BID PO Last administered on 04/03/19at 08:38; Admin Dose 17 GM; Start 04/02/19 at 21:00 Potassium Chloride/Dextrose/ Sod Cl 1,000 ml @ 70 mls/hr [id number] IV ; Start 04/03/19 at 14:00 JASBIR WANG NP Apr 03, 2019 13:41
--- NOTE | 2019-04-03 14:03 | CONS ---
Assessment/Plan Assessment/Plan Hospital Course (Demo Recall) No acute events patient is noncommunicative in no distress afebrile WBC 14.1 platelets 434 neutrophils 76.5 BUN 20 creatinine 0.43 from yesterday Indwelling straight back Lane Allergies: Levaquin Antimicrobials: Vanco, Fortaz Sputum culture back at the facility grew multidrug-resistant gram-negative peace organisms resistant to meropenem sepsis susceptible to Fortaz and aminoglycosides Physical examination: This is a chronically ill-appearing elderly woman who is noncommunicative in no distress. Head atraumatic normocephalic sclera nonicteric neck is supple chest rise symmetrical breath sounds diminished bases heart S1-S2 abdomen obese soft bowel sounds hypoactive extremities contractured without cyanosis skin patient has unstageable chronic wound on her sacrum sacrum and necrotic wounds on the feet Assessment: 1. Sepsis 2. UTI per urinalysis 3. Acute tracheobronchitis, possible pneumonia 4. Chronic respiratory failure and dysphagia 5. Multiple chronic wounds 6. History of CVA 7. Acute on chronic anemia 8. Diabetes 9. Seizure disorder Plan: Clinically unchanged, continue abx Consultation Date/Type/Reason Admit Date/Time Apr 01, 2019 at 16:23 Initial Consult Date 04/02/19 Type of Consult id Requesting Provider: DWAYNE CALDERON Date/Time of Note DATE: 04/03/19 TIME: 14:02 Exam/Review of Systems Exam Vitals Vital Signs Date Temp Pulse Resp B/P (MAP) Pulse Ox O2 O2 Flow FiO2 Time Delivery Rate 04/03/19 99 16 100 30 13:48 04/03/19 98.7 127/58 11:28 (81) 04/03/19 Mechanical 04:01 Ventilator Intake and Output 04/02/19 04/02/19 04/03/19 1515:00 23:00 07:00 IntakeIntake Total 1900 ml 700 ml OutputOutput Total 1450 ml 1700 ml BalanceBalance 450 ml -1000 ml Results Result Diagram: 04/03/19 0759 04/02/19 0601 Results 24hrs Laboratory Tests Test 04/02/19 17:02 04/02/19 20:10 04/03/19 01:25 04/03/19 05:51 Bedside Glucose 104 132 85 96 Test 04/03/19 07:17 04/03/19 07:59 04/03/19 08:36 04/03/19 13:15 Lab Scanned BLOOD TRANSFUSIO Report N White Blood Count 14.1 H Red Blood Count 3.68 #L Hemoglobin 9.1 #L Hematocrit 29.4 #L Mean Corpuscular 79.9 L Volume Mean Corpuscular 24.7 L Hemoglobin Mean Corpuscular 31.0 L Hemoglobin Concen t Red Cell 16.4 H Distribution Width Platelet Count 434 H Mean Platelet 11.7 H Volume Immature 1.900 H Granulocytes % Neutrophils % 76.5 Lymphocytes % 14.4 L Monocytes % 5.4 Eosinophils % 1.2 Basophils % 0.6 Nucleated Red 0.2 H Blood Cells % Immature 0.270 H Granulocytes # Neutrophils # 10.8 H Lymphocytes # 2.0 Monocytes # 0.8 Eosinophils # 0.2 Basophils # 0.1 Nucleated Red 0.0 Blood Cells # Bedside Glucose 99 137 Medications Medication Current Medications Pantoprazole (Protonix Tab) 40 mg DAILY@06 PO Last administered on 04/03/19 05:53; Admin Dose 40 MG; Start 04/02/19 at 06:00 Albuterol (Proventil 0.083% (Neb)) 2.5 mg Q3H RESP THERAPY PRN NEB WHEEZING AND SOB; Start 04/01/19 at 22:00 Amlodipine Besylate (Norvasc) 10 mg DAILY GTB Last administered on 04/03/19 08:40; Admin Dose 10 MG; Start 04/02/19 at 09:00 Ascorbic Acid (Vitamin C) 500 mg BID GTB Last administered on 04/03/19 08:38; Admin Dose 500 MG; Start 04/02/19 at 09:00 Chlorhexidine Gluconate (Peridex) 15 ml Q12H MM Last administered on 04/03/19at 10:40; Admin Dose 15 ML; Start 04/01/19 at 22:00 Clopidogrel Bisulfate (plaVIX) 75 mg DAILY GTB Last administered on 04/03/19 08:38; Admin Dose 75 MG; Start 04/02/19 at 09:00 Docusate Sodium (Colace Liquid Cup) 100 mg QHS GTB Last administered on 04/02/19at 20:13; Admin Dose 100 MG; Start 04/02/19 at 21:00 Ferrous Sulfate (Feosol Liquid Cup) 300 mg DAILY GTB Last administered on 04/03/19 08:38; Admin Dose 300 MG; Start 04/02/19 at 09:00 Acetaminophen/ Hydrocodone Bitart ([place] (5/325)) 1 tab BID GTB ; Start 04/02/19 at 09:00 Levetiracetam (Keppra Liquid) 500 mg BID GTB Last administered on 04/03/19 08:38; Admin Dose 500 MG; Start 04/02/19 at 09:00 Losartan Potassium (Cozaar) 100 mg DAILY GTB Last administered on 04/03/19 08:40; Admin Dose 100 MG; Start 04/02/19 at 09:00 Metformin HCl (Glucophage) 500 mg WITH BREAKFAST DINNE GTB Last administered on 04/03/19 08:39; Admin Dose 500 MG; Start 04/02/19 at 07:55 Albuterol (Proventil 0.083% (Neb)) 1.25 mg Q6H RESP THERAPY HHN Last administered on 04/03/19at 13:48; Admin Dose 1.25 MG; Start 04/02/19 at 02:00 Miscellaneous Information 1 ea NOTE XX ; Start 04/01/19 at 22:00 Glucose (Glutose) 15 gm Q15M PRN PO DECREASED GLUCOSE; Start 04/01/19 at 22:00 Glucose (Glutose) 22.5 gm Q15M PRN PO DECREASED GLUCOSE; Start 04/01/19 at 22:00 Dextrose (D50w Syringe) 25 ml Q15M PRN IV DECREASED GLUCOSE Last administered on 04/03/19at 12:44; Admin Dose 25 ML; Start 04/01/19 at 22:00 Dextrose (D50w Syringe) 50 ml Q15M PRN IV DECREASED GLUCOSE; Start 04/01/19 at 22:00 Glucagon (Glucagen) 1 mg Q15M PRN IM DECREASED GLUCOSE; Start 04/01/19 at 22:00 Glucose (Glutose) 15 gm Q15M PRN BUCCAL DECREASED GLUCOSE; Start 04/01/19 at 22:00 Insulin Glargine (Lantus) 40 units Q12 SC Last administered on 04/03/19at 08:53; Admin Dose 40 UNITS; Start 04/02/19 at 09:00 Insulin Aspart (Novolog Insulin Pen) NOVOLOG *MILD* ALGORI... Q4 SC ; Start 04/02/19 at 05:00 Miscellaneous Information (Pending [facility] Order For Wound Care) This patient valenzuela... PRN PRN XX WOUND CARE; Start 04/02/19 at 05:00 Acetaminophen (Tylenol Liquid) 650 mg Q4H PRN PO MILD PAIN(1-3)OR ELEVATED TEMP Last administered on 04/02/19at 22:49; Admin Dose 650 MG; Start 04/02/19 at 08:30 Zinc Sulfate (Zinc Sulfate) 220 mg DAILY GTB Last administered on 04/03/19 08:38; Admin Dose 220 MG; Start 04/03/19 at 09:00; Stop 04/16/19 at 08:59 Multivitamins/ Minerals (Theragran-M) 1 tab DAILY GTB Last administered on 04/03/19 08:38; Admin Dose 1 TAB; Start 04/03/19 at 09:00 Ceftazidime 50 ml @ 100 mls/hr Q8 IVPB Last administered on 04/03/19 05:53; Admin Dose 100 MLS/HR; Start 04/02/19 at 14:00 Vancomycin HCl (Vanco Iv Per Pharmacy) VANCOMYCIN PER PHARMACY PER PROTOCOL XX ; Start 04/02/19 at 14:00 Vancomycin HCl 250 ml @ 125 mls/hr Q24H IVPB ; Start 04/03/19 at 15:00 Polyethylene Glycol (Miralax) 17 gm BID PO Last administered on 04/03/19 08:38; Admin Dose 17 GM; Start 04/02/19 at 21:00 Potassium Chloride/Dextrose/ Sod Cl 1,000 ml @ 70 mls/hr [id number] IV ; Start 04/03/19 at 14:00 ANTHONY JOY NP Apr 03, 2019 14:03
[2019-04-03] MEDS: D5W-0.45 NACL + KCL 20 MEQ 1,000 ML IV SCH (14:59)
--- NOTE | 2019-04-03 15:08 | CONS ---
Assessment/Plan Assessment/Plan Hospital Course (Demo Recall) 73 yo with Sepsis secondary to tracheobronchitis on antibiotics, dementia, CVA, chronic respiratory failure, hypertension, seizure disorder, and diabetes. We are asked to see her for anemi #anemia I suspect that her anemia is likely multifactorial due to infection/antibiotics she is not in [facility] her TSH, B12, folate are normal iron studies are consistent with anemia of chronic disease given that she has adequate iron with ferritin 165 check SPEP, immunofixation. haptoglobin, LDH, mazin Consultation Date/Type/Reason Admit Date/Time Apr 01, 2019 at 16:23 Date/Time of Note DATE: 04/03/19 TIME: 13:46 Hx of Present Illness 73-year-old female with dementia, CVA, chronic respiratory failure, hypertension, seizure disorder, and diabetes. She was recently noted to have leukocytosis and sputum was positive for acinetobacter. The patient was started on IV cefepime based on culture and sensitivity. However, patient's white count went up from 15.8 on 03/28/2019 up to 18.26 as of yesterday. Her hemoglobin dropped from 7.7 down to 7.6. The patient was sent to [facility] ER for further evaluation and management. We are asked to see her for anemia Past Medical History Home Meds Reported Medications Ascorbic Acid (Vitamin C) 500 Mg Tab, 500 MG GTB BID, TAB 04/01/19 Cran/Vitc/Mannose/Inulin/Brom (Uti-Stat Liquid) 3,875 Mg/30 Ml Liquid, 30 ML GTB BID 04/01/19 Acetaminophen* (Tylenol*) 325 Mg Tablet, 650 MG GTB NEEDED PRN for TRACH TUBE CHANGE, TAB 04/01/19 Amino Acids/Protein Hydrolys (PRO-STAT LIQUID) 30 Ml Liquid.pkt, 30 ML GTB BID SUGAR FREE 04/01/19 Prednisone* (Prednisone*) 20 Mg Tab, 20 MG GTB DAILY, TAB 04/01/19 Potassium Chloride* (Potassium Chloride*) 20 Meq/15 Ml Liquid, 22.5 ML GTB DAILY, ML 04/01/19 Hydrocodone/Acetaminophen ([place] 5-325 Tablet) 1 Each Tablet, 1 EACH GTB BID, TAB 04/01/19 Losartan Potassium* (Losartan Potassium*) 100 Mg Tablet, 100 MG GTB DAILY, TAB HOLD IF SBP<110 OR HR<60 04/01/19 Levetiracetam* (Keppra* (Ped)) 100 Mg/Ml Liq, 5 ML GTB BID for 30 Days, BOTTLE 04/01/19 Metformin Hcl* (Metformin Hcl*) 500 Mg Tablet, 500 MG GTB WITH BREAKFAST DINNE, #60 TAB 04/01/19 Ferrous Sulfate* (Ferrous Sulfate*) 220 Mg/5 Ml Solution, 7.5 ML GTB DAILY, ML 04/01/19 Cranberry Extract (Cranberry) 425 Mg Capsule, 425 MG GTB BID, CAP 04/01/19 Docusate Sodium* (Colace*) 100 Mg Capsule, 100 MG GTB QHS, #30 CAP 04/01/19 Clopidogrel Bisulfate* (Clopidogrel Bisulfate*) 75 Mg Tablet, 75 MG GTB DAILY, #30 TAB 04/01/19 Loratadine* (Loratadine*) 10 Mg Tablet, 10 MG GTB DAILY, #30 TAB 04/01/19 Chlorhexidine Gluconate (Peridex) 473 Ml Mouthwash, 15 ML MM Q12H, BOTTLE 04/01/19 Insulin Glargine,Hum.rec.anlog (Basaglar Kwikpen U-100) 100 Unit/1 Ml Insuln.pen, 63 UNIT SC Q12H, EA 04/01/19 Amlodipine Besylate* (Amlodipine Besylate*) 10 Mg Tablet, 10 MG GTB DAILY, #30 TAB HOLD FOR SBP <110 OR HR<60 04/01/19 Albuterol Sulfate* (Albuterol Sulfate* Neb) 0.083%-3 Ml Neb, 2.5 MG NEB Q3H PRN for WHEEZING AND SOB, #30 VIAL 04/01/19 Discontinued Reported Medications Tramadol HCl (Tramadol HCl) 50 Mg Tablet, 50 MG GTB Q8H PRN for PAIN LEVEL 6-10, #120 TAB 06/19/17 Bisacodyl* (Dulcolax*) 5 Mg Tablet.dr, 10 MG PO DAILY PRN for CONSTIPATION, TAB 06/19/17 Acetaminophen* (Acetaminophen*) 650 Mg Tablet, 650 MG PO Q4 PRN for PAIN AND OR ELEVATED TEMP, #30 TAB 06/19/17 Magnesium Hydroxide* (Milk Of Magnesia*) 400 Mg/5 Ml Oral.susp, 30 ML GTB DAILY PRN for CONSTIPATION, ML 06/19/17 Ipratropium-Albuterol (Ipratropium-Albuterol) 0.5-3 Mg/3 Ml Ampul.neb, 3 ML INHALATION Q4 PRN for SHORTNESS OF BREATH, #30 VIAL 06/19/17 Clonidine Hcl* (Clonidine Hcl*) 0.1 Mg Tab, 0.1 MG GTB Q6 PRN for ELEVATED BLOOD PRESSURE, TAB 06/19/17 Insulin Detemir (Levemir Flextouch) 100 Unit/1 Ml Insuln.pen, 40 UNIT SQ WITH BREAKFAST 06/19/17 Levetiracetam* (Keppra*) 500 Mg/5 Ml Solution, 500 MG GTB BID, BOTTLE 06/19/17 Tramadol HCl (Tramadol HCl) 50 Mg Tablet, 50 MG GTB Q12, #60 TAB 06/19/17 Zinc Sulfate* (Zinc Sulfate*) 220 Mg Tablet, 220 MG GTB DAILY, TAB 06/19/17 Ascorbic Acid* (Vitamin C*) 500 Mg Capsule.sa, 500 MG GTB DAILY, CAP 06/19/17 Clopidogrel Bisulfate (Clopidogrel) 75 Mg Tablet, 75 MG GTB DAILY, #30 TAB 06/19/17 Cephalexin* (Cephalexin*) 500 Mg Capsule, 500 MG GTB Q6, #28 CAP 06/19/17 Losartan Potassium* (Cozaar*) 100 Mg Tablet, 100 MG GTB QHS, #30 TAB 06/19/17 Medications Current Medications Pantoprazole (Protonix Tab) 40 mg DAILY@06 PO Last administered on 04/03/19at 05:53; Admin Dose 40 MG; Start 04/02/19 at 06:00 Albuterol (Proventil 0.083% (Neb)) 2.5 mg Q3H RESP THERAPY PRN NEB WHEEZING AND SOB; Start 04/01/19 at 22:00 Amlodipine Besylate (Norvasc) 10 mg DAILY GTB Last administered on 04/03/19at 08:40; Admin Dose 10 MG; Start 04/02/19 at 09:00 Ascorbic Acid (Vitamin C) 500 mg BID GTB Last administered on 04/03/19at 08:38; Admin Dose 500 MG; Start 04/02/19 at 09:00 Chlorhexidine Gluconate (Peridex) 15 ml Q12H MM Last administered on 04/03/19 10:40; Admin Dose 15 ML; Start 04/01/19 at 22:00 Clopidogrel Bisulfate (plaVIX) 75 mg DAILY GTB Last administered on 04/03/19 08:38; Admin Dose 75 MG; Start 04/02/19 at 09:00 Docusate Sodium (Colace Liquid Cup) 100 mg QHS GTB Last administered on 04/02/19 20:13; Admin Dose 100 MG; Start 04/02/19 at 21:00 Ferrous Sulfate (Feosol Liquid Cup) 300 mg DAILY GTB Last administered on 04/03/19 08:38; Admin Dose 300 MG; Start 04/02/19 at 09:00 Acetaminophen/ Hydrocodone Bitart ([place] (5/325)) 1 tab BID GTB ; Start 04/02/19 at 09:00 Levetiracetam (Keppra Liquid) 500 mg BID GTB Last administered on 04/03/19 08:38; Admin Dose 500 MG; Start 04/02/19 at 09:00 Losartan Potassium (Cozaar) 100 mg DAILY GTB Last administered on 04/03/19 08:40; Admin Dose 100 MG; Start 04/02/19 at 09:00 Metformin HCl (Glucophage) 500 mg WITH BREAKFAST DINNE GTB Last administered on 04/03/19 08:39; Admin Dose 500 MG; Start 04/02/19 at 07:55 Albuterol (Proventil 0.083% (Neb)) 1.25 mg Q6H RESP THERAPY HHN Last administered on 04/03/19 09:09; Admin Dose 1.25 MG; Start 04/02/19 at 02:00 Miscellaneous Information 1 ea NOTE XX ; Start 04/01/19 at 22:00 Glucose (Glutose) 15 gm Q15M PRN PO DECREASED GLUCOSE; Start 04/01/19 at 22:00 Glucose (Glutose) 22.5 gm Q15M PRN PO DECREASED GLUCOSE; Start 04/01/19 at 22:00 Dextrose (D50w Syringe) 25 ml Q15M PRN IV DECREASED GLUCOSE Last administered on 04/03/19at 12:44; Admin Dose 25 ML; Start 04/01/19 at 22:00 Dextrose (D50w Syringe) 50 ml Q15M PRN IV DECREASED GLUCOSE; Start 04/01/19 at 22:00 Glucagon (Glucagen) 1 mg Q15M PRN IM DECREASED GLUCOSE; Start 04/01/19 at 22:00 Glucose (Glutose) 15 gm Q15M PRN BUCCAL DECREASED GLUCOSE; Start 04/01/19 at 22:00 Insulin Glargine (Lantus) 40 units Q12 SC Last administered on 04/03/19 08:53; Admin Dose 40 UNITS; Start 04/02/19 at 09:00 Insulin Aspart (Novolog Insulin Pen) NOVOLOG *MILD* ALGORI... Q4 SC ; Start 04/02/19 at 05:00 [facility]isc[facility] This patient valenzuela... PRN PRN XX WOUND CARE; Start 04/02/19 at 05:00 Acetaminophen (Tylenol Liquid) 650 mg Q4H PRN PO MILD PAIN(1-3)OR ELEVATED TEMP Last administered on 04/02/19at 22:49; Admin Dose 650 MG; Start 04/02/19 at 08:30 Zinc Sulfate (Zinc Sulfate) 220 mg DAILY GTB Last administered on 04/03/19 08:38; Admin Dose 220 MG; Start 04/03/19 at 09:00; Stop 04/16/19 at 08:59 Multivitamins/ Minerals (Theragran-M) 1 tab DAILY GTB Last administered on 04/03/19at 08:38; Admin Dose 1 TAB; Start 04/03/19 at 09:00 Ceftazidime 50 ml @ 100 mls/hr Q8 IVPB Last administered on 04/03/19at 05:53; Admin Dose 100 MLS/HR; Start 04/02/19 at 14:00 Vancomycin HCl (Vanco Iv Per Pharmacy) VANCOMYCIN PER PHARMACY PER PROTOCOL XX ; Start 04/02/19 at 14:00 Vancomycin HCl 250 ml @ 125 mls/hr Q24H IVPB ; Start 04/03/19 at 15:00 Polyethylene Glycol (Miralax) 17 gm BID PO Last administered on 04/03/19at 08:38; Admin Dose 17 GM; Start 04/02/19 at 21:00 Potassium Chloride/Dextrose/ Sod Cl 1,000 ml @ 70 mls/hr [id number] IV ; Start 04/03/19 at 14:00 Allergies: Coded Allergies: levofloxacin (Unverified Allergy, Unknown, 04/01/19) Past Surgical History Past Surgical Hx: other Social History Alcohol Use: none Smoking Status: Unknown if ever smoked Drug Use: none Exam/Review of Systems Exam Vitals Vital Signs Date Temp Pulse Resp B/P (MAP) Pulse Ox O2 O2 Flow FiO2 Time Delivery Rate 04/03/19 73 20 100 30 11:54 04/03/19 98.7 127/58 11:28 (81) 04/03/19 Mechanical 04:01 Ventilator Intake and Output 04/02/19 04/02/19 04/03/19 1515:00 23:00 07:00 IntakeIntake Total 1900 ml 700 ml OutputOutput Total 1450 ml 1700 ml BalanceBalance 450 ml -1000 ml Constitutional: non-verbal, frail ENMT: intubated Neck: other (trach in place) Respiratory: diminished breath sounds Gastrointestinal: soft Neurological: unresponsive Results Result Diagram: 04/03/19 0759 04/02/19 0601 Results 24hrs Laboratory Tests Test 04/02/19 17:02 04/02/19 20:10 04/03/19 01:25 04/03/19 05:51 Bedside Glucose 104 132 85 96 Test 04/03/19 07:17 04/03/19 07:59 04/03/19 08:36 04/03/19 13:15 Lab Scanned BLOOD TRANSFUSIO Report N White Blood Count 14.1 H Red Blood Count 3.68 #L Hemoglobin 9.1 #L Hematocrit 29.4 #L Mean Corpuscular 79.9 L Volume Mean Corpuscular 24.7 L Hemoglobin Mean Corpuscular 31.0 L Hemoglobin Concen t Red Cell 16.4 H Distribution Width Platelet Count 434 H Mean Platelet 11.7 H Volume Immature 1.900 H Granulocytes % Neutrophils % 76.5 Lymphocytes % 14.4 L Monocytes % 5.4 Eosinophils % 1.2 Basophils % 0.6 Nucleated Red 0.2 H Blood Cells % Immature 0.270 H Granulocytes # Neutrophils # 10.8 H Lymphocytes # 2.0 Monocytes # 0.8 Eosinophils # 0.2 Basophils # 0.1 Nucleated Red 0.0 Blood Cells # Bedside Glucose 99 137 Medications Medication Current Medications Pantoprazole (Protonix Tab) 40 mg DAILY@06 PO Last administered on 6/19/19at 05:53; Admin Dose 40 MG; Start 04/02/19 at 06:00 Albuterol (Proventil 0.083% (Neb)) 2.5 mg Q3H RESP THERAPY PRN NEB WHEEZING AND SOB; Start 04/01/19 at 22:00 Amlodipine Besylate (Norvasc) 10 mg DAILY GTB Last administered on 04/03/19 08:40; Admin Dose 10 MG; Start 04/02/19 at 09:00 Ascorbic Acid (Vitamin C) 500 mg BID GTB Last administered on 04/03/19 08:38; Admin Dose 500 MG; Start 04/02/19 at 09:00 Chlorhexidine Gluconate (Peridex) 15 ml Q12H MM Last administered on 04/03/19 10:40; Admin Dose 15 ML; Start 04/01/19 at 22:00 Clopidogrel Bisulfate (plaVIX) 75 mg DAILY GTB Last administered on 04/03/19 08:38; Admin Dose 75 MG; Start 04/02/19 at 09:00 Docusate Sodium (Colace Liquid Cup) 100 mg QHS GTB Last administered on 04/02/19 20:13; Admin Dose 100 MG; Start 04/02/19 at 21:00 Ferrous Sulfate (Feosol Liquid Cup) 300 mg DAILY GTB Last administered on 04/03/19 08:38; Admin Dose 300 MG; Start 04/02/19 at 09:00 Acetaminophen/ Hydrocodone Bitart ([place] (5/325)) 1 tab BID GTB ; Start 04/02/19 at 09:00 Levetiracetam (Keppra Liquid) 500 mg BID GTB Last administered on 04/03/19 08:38; Admin Dose 500 MG; Start 04/02/19 at 09:00 Losartan Potassium (Cozaar) 100 mg DAILY GTB Last administered on 04/03/19 08:40; Admin Dose 100 MG; Start 04/02/19 at 09:00 Metformin HCl (Glucophage) 500 mg WITH BREAKFAST DINNE GTB Last administered on 04/03/19 08:39; Admin Dose 500 MG; Start 04/02/19 at 07:55 Albuterol (Proventil 0.083% (Neb)) 1.25 mg Q6H RESP THERAPY HHN Last admini stered on 04/03/19 09:09; Admin Dose 1.25 MG; Start 04/02/19 at 02:00 Miscellaneous Information 1 ea NOTE XX ; Start 04/01/19 at 22:00 Glucose (Glutose) 15 gm Q15M PRN PO DECREASED GLUCOSE; Start 04/01/19 at 22:00 Glucose (Glutose) 22.5 gm Q15M PRN PO DECREASED GLUCOSE; Start 04/01/19 at 22:00 Dextrose (D50w Syringe) 25 ml Q15M PRN IV DECREASED GLUCOSE Last administered on 04/03/19at 12:44; Admin Dose 25 ML; Start 04/01/19 at 22:00 Dextrose (D50w Syringe) 50 ml Q15M PRN IV DECREASED GLUCOSE; Start 04/01/19 at 22:00 Glucagon (Glucagen) 1 mg Q15M PRN IM DECREASED GLUCOSE; Start 04/01/19 at 22:00 Glucose (Glutose) 15 gm Q15M PRN BUCCAL DECREASED GLUCOSE; Start 04/01/19 at 22:00 Insulin Glargine (Lantus) 40 units Q12 SC Last administered on 04/03/19at 08:53; Admin Dose 40 UNITS; Start 04/02/19 at 09:00 Insulin Aspart (Novolog Insulin Pen) NOVOLOG *MILD* ALGORI... Q4 SC ; Start 04/02/19 at 05:00 Miscellaneous Information (Pending [facility] Order For Wound Care) This patient valenzuela... PRN PRN XX WOUND CARE; Start 04/02/19 at 05:00 Acetaminophen (Tylenol Liquid) 650 mg Q4H PRN PO MILD PAIN(1-3)OR ELEVATED TEMP Last administered on 04/02/19at 22:49; Admin Dose 650 MG; Start 04/02/19 at 08:30 Zinc Sulfate (Zinc Sulfate) 220 mg DAILY GTB Last administered on 04/03/19 08:38; Admin Dose 220 MG; Start 04/03/19 at 09:00; Stop 04/16/19 at 08:59 Multivitamins/ Minerals (Theragran-M) 1 tab DAILY GTB Last administered on 04/03/19at 08:38; Admin Dose 1 TAB; Start 04/03/19 at 09:00 Ceftazidime 50 ml @ 100 mls/hr Q8 IVPB Last administered on 04/03/19at 05:53; Admin Dose 100 MLS/HR; Start 04/02/19 at 14:00 Vancomycin HCl (Vanco Iv Per Pharmacy) VANCOMYCIN PER PHARMACY PER PROTOCOL XX ; Start 04/02/19 at 14:00 Vancomycin HCl 250 ml @ 125 mls/hr Q24H IVPB ; Start 04/03/19 at 15:00 Polyethylene Glycol (Miralax) 17 gm BID PO Last administered on 04/03/19at 08:38; Admin Dose 17 GM; Start 04/02/19 at 21:00 Potassium Chloride/Dextrose/ Sod Cl 1,000 ml @ 70 mls/hr [id number] IV ; Start 04/03/19 at 14:00 RITA RHODES Apr 03, 2019 13:56
[2019-04-03] MEDS: VANCOMYCIN 1 GM 250 ML IVPB SCH (15:35)
--- NOTE | 2019-04-03 16:18 | PN ---
Date/Time of Note Date/Time of Note DATE: 04/03/19 TIME: 16:14 Assessment/Plan VTE Prophylaxis Risk score (from Ns)>0 risk: 7 SCD applied (from Ns): Yes Pharmacological prophylaxis: NA/contraindicated Pharm contraindication: anticoag not tolerated Lines/Catheters IV [facility]from [facility] Peripheral IV Urinary Cath still in place: Yes Reason Cath still needed: urinary retention Assessment/Plan Hospital Course Plan for EGD and colonoscopy tomorrow, patient is n.p.o. G-tube was held due to GI symptoms, continue IV fluids with dextrose. It is 9.1 status post 1 unit packed red blood cells transfusion yesterday, continue to monitor H&H. Assessment/Plan - Sepsis secondary to tracheobronchitis. Based on recent intensity of sputum culture from [facility] facility, patient is started on IV gentamicin dosin g as per pharmacy. Follow-up on cultures. Dr. Mcmullen is following in infection disease consultation. - Ventilator dependent respiratory failure. Dr. De La Torre is following in pulmonology consultation - Hypertension. Continue Norvasc and losartan. - Diabetes. Continue Lantus and sliding scale insulin in addition to metformin. - Seizure disorder, stable with current dose of Keppra. - Anemia multifactorial chronic disease and possible acute blood loss. - Rule out GI bleed. Dr. Prieto is following in gastroenterology consultation. - Hx of CVA, continue Plavix. - Multiple pressure ulcers continue wound care per wound care consult, offloading, air mattress, optimize nutrition. Further recommendations based on clinical course. Plan of care discussed with Dr. Mera. Result Diagram: 04/03/19 0759 04/02/19 0601 Results 24hrs Laboratory Tests Test 04/02/19 17:02 04/02/19 20:10 04/03/19 01:25 04/03/19 05:51 Bedside Glucose 104 132 85 96 Test 04/03/19 07:17 04/03/19 07:59 04/03/19 08:36 04/03/19 13:15 Lab Scanned BLOOD TRANSFUSIO Report N White Blood Count 14.1 H Red Blood Count 3.68 #L Hemoglobin 9.1 #L Hematocrit 29.4 #L Mean Corpuscular 79.9 L Volume Mean Corpuscular 24.7 L Hemoglobin Mean Corpuscular 31.0 L Hemoglobin Concen t Red Cell 16.4 H Distribution Width Platelet Count 434 H Mean Platelet 11.7 H Volume Immature 1.900 H Granulocytes % Neutrophils % 76.5 Lymphocytes % 14.4 L Monocytes % 5.4 Eosinophils % 1.2 Basophils % 0.6 Nucleated Red 0.2 H Blood Cells % Immature 0.270 H Granulocytes # Neutrophils # 10.8 H Lymphocytes # 2.0 Monocytes # 0.8 Eosinophils # 0.2 Basophils # 0.1 Nucleated Red 0.0 Blood Cells # Bedside Glucose 99 137 Exam/Review of Systems Exam Vitals Vital Signs Date Temp Pulse Resp B/P (MAP) Pulse Ox O2 O2 Flow FiO2 Time Delivery Rate 04/03/19 99.2 103 20 113/53 99 15:59 (73) 04/03/19 30 13:48 04/03/19 Mechanical 04:01 Ventilator Intake and Output 04/02/19 04/02/19 04/03/19 1515:00 23:00 07:00 IntakeIntake Total 1900 ml 700 ml OutputOutput Total 1450 ml 1700 ml BalanceBalance 450 ml -1000 ml Exam Constitutional: alert, non-verbal Respiratory: congested cough, diminished breath sounds Cardiovascular: regular rate and rhythm Gastrointestinal: soft, non-tender, other (G-tube) Musculoskeletal: nl extremities to inspection Extremities: normal pulses Neurological: confused Skin: nl turgor, other (Multiple pressure ulcers) Results Results 24hrs Laboratory Tests Test 04/02/19 17:02 04/02/19 20:10 04/03/19 01:25 04/03/19 05:51 Bedside Glucose 104 132 85 96 Test 04/03/19 07:17 04/03/19 07:59 04/03/19 08:36 04/03/19 13:15 Lab Scanned BLOOD TRANSFUSIO Report N White Blood Count 14.1 H Red Blood Count 3.68 #L Hemoglobin 9.1 #L Hematocrit 29.4 #L Mean Corpuscular 79.9 L Volume Mean Corpuscular 24.7 L Hemoglobin Mean Corpuscular 31.0 L Hemoglobin Concen t Red Cell 16.4 H Distribution Width Platelet Count 434 H Mean Platelet 11.7 H Volume Immature 1.900 H Granulocytes % Neutrophils % 76.5 Lymphocytes % 14.4 L Monocytes % 5.4 Eosinophils % 1.2 Basophils % 0.6 Nucleated Red 0.2 H Blood Cells % Immature 0.270 H Granulocytes # Neutrophils # 10.8 H Lymphocytes # 2.0 Monocytes # 0.8 Eosinophils # 0.2 Basophils # 0.1 Nucleated Red 0.0 Blood Cells # Bedside Glucose 99 137 Medications Medication Current Medications Pantoprazole (Protonix Tab) 40 mg DAILY@06 PO Last administered on 04/03/19 05:53; Admin Dose 40 MG; Start 04/02/19 at 06:00 Albuterol (Proventil 0.083% (Neb)) 2.5 mg Q3H RESP THERAPY PRN NEB WHEEZING AND SOB; Start 04/01/19 at 22:00 Amlodipine Besylate (Norvasc) 10 mg DAILY GTB Last administered on 04/03/19 08:40; Admin Dose 10 MG; Start 04/02/19 at 09:00 Ascorbic Acid (Vitamin C) 500 mg BID GTB Last administered on 04/03/19 08:38; Admin Dose 500 MG; Start 04/02/19 at 09:00 Chlorhexidine Gluconate (Peridex) 15 ml Q12H MM Last administered on 04/03/19 10:40; Admin Dose 15 ML; Start 04/01/19 at 22:00 Clopidogrel Bisulfate (plaVIX) 75 mg DAILY GTB Last administered on 04/03/19 08:38; Admin Dose 75 MG; Start 04/02/19 at 09:00 Docusate Sodium (Colace Liquid Cup) 100 mg QHS GTB Last administered on 04/02/19at 20:13; Admin Dose 100 MG; Start 04/02/19 at 21:00 Ferrous Sulfate (Feosol Liquid Cup) 300 mg DAILY GTB Last administered on 04/03/19 08:38; Admin Dose 300 MG; Start 04/02/19 at 09:00 Acetaminophen/ Hydrocodone Bitart ([place] (5/325)) 1 tab BID GTB ; Start 04/02/19 at 09:00 Levetiracetam (Keppra Liquid) 500 mg BID GTB Last administered on 04/03/19 08:38; Admin Dose 500 MG; Start 04/02/19 at 09:00 Losartan Potassium (Cozaar) 100 mg DAILY GTB Last administered on 04/03/19 08:40; Admin Dose 100 MG; Start 04/02/19 at 09:00 Metformin HCl (Glucophage) 500 mg WITH BREAKFAST DINNE GTB Last administered on 04/03/19at 08:39; Admin Dose 500 MG; Start 04/02/19 at 07:55 Albuterol (Proventil 0.083% (Neb)) 1.25 mg Q6H RESP THERAPY HHN Last administered on 04/03/19at 13:48; Admin Dose 1.25 MG; Start 04/02/19 at 02:00 Miscellaneous Information 1 ea NOTE XX ; Start 04/01/19 at 22:00 Glucose (Glutose) 15 gm Q15M PRN PO DECREASED GLUCOSE; Start 04/01/19 at 22:00 Glucose (Glutose) 22.5 gm Q15M PRN PO DECREASED GLUCOSE; Start 04/01/19 at 22:00 Dextrose (D50w Syringe) 25 ml Q15M PRN IV DECREASED GLUCOSE Last administered on 04/03/19at 12:44; Admin Dose 25 ML; Start 04/01/19 at 22:00 Dextrose (D50w Syringe) 50 ml Q15M PRN IV DECREASED GLUCOSE; Start 04/01/19 at 22:00 Glucagon (Glucagen) 1 mg Q15M PRN IM DECREASED GLUCOSE; Start 04/01/19 at 22:00 Glucose (Glutose) 15 gm Q15M PRN BUCCAL DECREASED GLUCOSE; Start 04/01/19 at 22:00 Insulin Glargine (Lantus) 40 units Q12 SC Last administered on 04/03/19at 08:53; Admin Dose 40 UNITS; Start 04/02/19 at 09:00 Insulin Aspart (Novolog Insulin Pen) NOVOLOG *MILD* ALGORI... Q4 SC ; Start 04/02/19 at 05:00 Miscellaneous Information (Pending [facility] Order For Wound Care) This patient valenzuela... PRN PRN XX WOUND CARE; Start 04/02/19 at 05:00 Acetaminophen (Tylenol Liquid) 650 mg Q4H PRN PO MILD PAIN(1-3)OR ELEVATED TEMP Last administered on 04/02/19at 22:49; Admin Dose 650 MG; Start 04/02/19 at 08:30 Zinc Sulfate (Zinc Sulfate) 220 mg DAILY GTB Last administered on 04/03/19at 08:38; Admin Dose 220 MG; Start 04/03/19 at 09:00; Stop 04/16/19 at 08:59 Multivitamins/ Minerals (Theragran-M) 1 tab DAILY GTB Last administered on 04/03/19 08:38; Admin Dose 1 TAB; Start 04/03/19 at 09:00 Ceftazidime 50 ml @ 100 mls/hr Q8 IVPB Last administered on 04/03/19 14:59; Admin Dose 100 MLS/HR; Start 04/02/19 at 14:00 Vancomycin HCl (Vanco Iv Per Pharmacy) VANCOMYCIN PER PHARMACY PER PROTOCOL XX ; Start 04/02/19 at 14:00 Vancomycin HCl 250 ml @ 125 mls/hr Q24H IVPB Last administered on 04/03/19 15:35; Admin Dose 125 MLS/HR; Start 04/03/19 at 15:00 Polyethylene Glycol (Miralax) 17 gm BID PO Last administered on 04/03/19 08:38; Admin Dose 17 GM; Start 04/02/19 at 21:00 Potassium Chloride/Dextrose/ Sod Cl 1,000 ml @ 70 mls/hr Q89H90H IV Last administered on 04/03/19 14:59; Admin Dose 70 MLS/HR; Start 04/03/19 at 14:00 Miscellaneous Information (*Rx Drug Level Order Reminder*) VANCO TR AT 1400 PRIOR... 1400 ONCE XX ; Start 04/05/19 at 14:00; Stop 04/05/19 at 14:01 DWAYNE CALDERON Apr 03, 2019 16:18
[2019-04-03] MEDS ORDERED: DAKINS 0.0125%(1/40) 473 ML SOLUTION TP PRN (19:00)
[2019-04-03] MEDS: DAKINS 0.0125%(1/40) 473 ML SOLUTION TP SCH (20:56)
[2019-04-03] MEDS: DOCUSATE SODIUM 10 MG/ML (10ML CUP) GTB SCH (21:13)
[2019-04-04] VITALS (24 sets, daily range): BP systolic 119–145; BP diastolic 54–67; PULSE 83–108; RESP 16–20
[2019-04-04] MEDS: INSULIN ASPART [NOVOLOG] 3 ML PEN SC SCH ×6 (01:00→21:00)
[2019-04-04] MEDS: DEXTROSE 50% 50 ML SYRINGE IV PRN ×2 (01:30→18:27)
[2019-04-04] MEDS: ALBUTEROL 0.083% (NEB) 2.5 MG/3 ML AMP HHN SCH ×4 (01:45→19:06)
[2019-04-04] MEDS: D5W-0.45 NACL + KCL 20 MEQ 1,000 ML IV SCH ×2 (04:18→09:33)
[2019-04-04] MEDS: CEFTAZIDIME 1GM/50 ML (PMX) 50 ML IVPB SCH ×3 (05:45→21:56)
[2019-04-04] MEDS: PANTOPRAZOLE (EC) 40 MG TAB PO SCH (05:45)
--- NOTE | 2019-04-04 08:48 | CONS ---
DATE OF ADMISSION: 04/01/2019 DATE OF CONSULTATION: The patient is intubated. She is nonverbal. GI consultation requested and I have been following the patient because of anemia and occult GI bleeding. PHYSICAL EXAMINATION: GENERAL: She is intubated. VITAL SIGNS: Temperature 99.2, blood pressure is 113/53. CARDIOVASCULAR: Normal heart sounds. RESPIRATORY: Normal breath sounds. ABDOMEN: Soft. LABORATORY WORKUP: Hemoglobin 9.1, came up from 6.2. The potassium is 3.7 as of yesterday. CLINICAL IMPRESSION: 1. Anemia secondary to gastrointestinal bleeding, rule out gastrostomy site ulcer disease, peptic ul cer disease, arteriovenous malformation, malignancy of the gastrointestinal tract. PLAN: Recommend upper endoscopy as well as lower endoscopy. Dictated By: MONIKA LEO MD NC/NTS Conf#: [id number] DID#: [id number] CC: BRONSON TYSON MD; NICOLE BUCHANAN MD;*EndCC*
[2019-04-04] MEDS: HYDROCODONE/APAP (5/325) TAB GTB SCH ×2 (09:00→21:00)
[2019-04-04] MEDS: MULTIVITAMINS/MINERALS TAB GTB SCH (09:35)
[2019-04-04] MEDS: POLYETHYLENE GLYCOL 17 GM PACKET PO SCH ×2 (09:35→21:55)
[2019-04-04] MEDS: ASCORBIC ACID 500 MG TAB GTB SCH ×2 (09:35→21:55)
[2019-04-04] MEDS: LEVETIRACETAM (100 MG/ML) 5ML CUP GTB SCH ×2 (09:35→21:54)
[2019-04-04] MEDS: FERROUS SULFATE 60 MG/ML 5ML CUP GTB SCH (09:35)
[2019-04-04] MEDS: ZINC SULFATE 220 MG CAP GTB SCH (09:35)
[2019-04-04] MEDS: CHLORHEXIDINE GLUCONATE 15 ML UD CUP MM SCH ×2 (09:35→21:56)
[2019-04-04] MEDS: CLOPIDOGREL 75 MG TAB GTB SCH (09:35)
[2019-04-04] MEDS: metFORMIN 500 MG TAB GTB SCH ×2 (09:40→17:55)
[2019-04-04] MEDS: AMLODIPINE 10 MG TAB GTB SCH (09:41)
[2019-04-04] MEDS: LOSARTAN 50 MG TAB GTB SCH (09:41)
[2019-04-04] MEDS: DAKINS 0.0125%(1/40) 473 ML SOLUTION TP SCH (09:43)
[2019-04-04] MEDS: INSULIN GLARGINE [LANTus] (100 UNITS/ML) SYG SC SCH ×2 (10:34→21:00)
--- NOTE | 2019-04-04 12:03 | CONS ---
Consultation Date/Type/Reason Admit Date/Time Apr 01, 2019 at 16:23 Initial Consult Date 04/02/19 Type of Consult Pulmonary Patient is a 73-year-old lady who was admitted from assisted with sepsis. Patient has been diagnosed a UTI and possibly pneumonia. Currently started on appropriate antimicrobial regimen. Patient does have advanced encephalopathy and was unable to give any history by herself whatsoever. Patient however was not in any distress whatsoever. History has been obtained from medical records. Past medical history; 1. VDRF. 2. Tracheostomy and G-tube placement. 3. Advanced encephalopathy. 4. Diabetes. 5. Hypertension. 6. History of seizure disorder. 7. Chronic anemia. Medications; reviewed. Allergies; Levaquin. Social history, family history, occupational history is not available. Review of system; unable to be obtained. General exam; elderly woman, on ventilator via tracheostomy, awake, currently in no distress. Patient is noncommunicative. Requesting Provider: DWAYNE CALDERON Date/Time of Note DATE: 04/04/19 TIME: 11:59 24 HR Interval Summary Free Text/Dictation Patient's condition is a stable. Has remained hemodynamically stable. No untoward events reported. General exam; elderly woman, on ventilator via tracheostomy, noncommunicative. Currently in no distress. H ENT exam; supple neck, no JVD. No lymphadenopathy. Midline trachea. No thyromegaly. Patient has a tracheostomy in place. Chest exam; diminished but clear breath sounds. S1-S2 audible, no murmurs. Regular rhythm. Abdomen exam; soft, no organomegaly. G-tube in place. Bowel sounds audible. Back exam; multiple wounds. Extremity exam; trace edema. 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 Ventilator setting; assist control of 16, tidal volume 500, PEEP of 5, 40% FiO2. Assessment and recommendations; next 1. Patient admitted with sepsis due to UTI as well as multiple skin ulcers with Acinetobacter isolated from sputum. Currently on appropriate antimicrobial regimen. 2. VDRF. 3. Chronic encephalopathy. 4. History of seizures, diabetes. Continue current supportive care. Antibiotics per ID recommendations. Exam/Review of Systems Exam Vitals Vital Signs Date Temp Pulse Resp B/P (MAP) Pulse Ox O2 O2 Flow FiO2 Time Delivery Rate 04/04/19 98.6 93 18 123/59 99 11:23 (80) 04/04/19 30 09:13 04/04/19 Mechanical 04:00 Ventilator Intake and Output 04/03/19 04/03/19 04/04/19 1515:00 23:00 07:00 IntakeIntake Total 50 ml OutputOutput Total 800 ml 1500 ml BalanceBalance -750 ml -1500 ml Results Result Diagram: 04/04/19 0617 04/04/19 0617 Results 24hrs Laboratory Tests Test 04/03/19 13:15 04/03/19 16:50 04/03/19 18:01 04/03/19 18:37 Bedside Glucose 137 59 L 129 Haptoglobin Pending Lactate 494 Dehydrogenase Total Protein (PEP) 5.1 L Albumin (PEP) Pending [id number] Pending [id number] Pending Beta Globulins Pending Gamma Globulins Pending Protein Pending Electrophoresis Inte rpret Immunoglobulin G 673 L Immunoglobulin A 216 Immunoglobulin M 94 Serum Immunofixation Pending Test 04/03/19 21:14 04/04/19 01:25 04/04/19 01:46 04/04/19 02:11 Bedside Glucose 72 53 L 125 102 Test 04/04/19 05:15 04/04/19 06:17 04/04/19 09:37 Bedside Glucose 74 80 White Blood Count 10.7 # Red Blood Count 3.38 L Hemoglobin 8.5 L Hematocrit 26.6 L Mean Corpuscular 78.7 L Volume Mean Corpuscular 25.1 L Hemoglobin Mean Corpuscular 32.0 Hemoglobin Concent Red Cell 16.7 H Distribution Width Platelet Count 500 H Mean Platelet Volume 11.0 H Immature 2.100 H Granulocytes % Neutrophils % 73.0 Lymphocytes % 19.2 Monocytes % 3.5 Eosinophils % 1.7 Basophils % 0.5 Nucleated Red Blood 0.0 Cells % Immature 0.220 H Granulocytes # Neutrophils # 7.8 H Lymphocytes # 2.1 Monocytes # 0.4 Eosinophils # 0.2 Basophils # 0.1 Nucleated Red Blood 0.0 Cells # Sodium Level 144 Potassium Level 3.5 Chloride Level 110 Carbon Dioxide Level 23 Anion Gap 11 Blood Urea Nitrogen 9 Creatinine 0.42 L Est Glomerular Filtrat Rate mL/min Glucose Level 72 Calcium Level 8.0 L Medications Medication Current Medications Pantoprazole (Protonix Tab) 40 mg DAILY@06 PO Last administered on 04/03/19 05:53; Admin Dose 40 MG; Start 04/02/19 at 06:00 Albuterol (Proventil 0.083% (Neb)) 2.5 mg Q3H RESP THERAPY PRN NEB WHEEZING AND SOB; Start 04/01/19 at 22:00 Amlodipine Besylate (Norvasc) 10 mg DAILY GTB Last administered on 04/04/19 09:41; Admin Dose 10 MG; Start 04/02/19 at 09:00 Ascorbic Acid (Vitamin C) 500 mg BID GTB Last administered on 04/04/19 09:35; Admin Dose 500 MG; Start 04/02/19 at 09:00 Chlorhexidine Gluconate (Peridex) 15 ml Q12H MM Last administered on 04/04/19 09:35; Admin Dose 15 ML; Start 04/01/19 at 22:00 Clopidogrel Bisulfate (plaVIX) 75 mg DAILY GTB Last administered on 04/04/19 09:35; Admin Dose 75 MG; Start 04/02/19 at 09:00 Docusate Sodium (Colace Liquid Cup) 100 mg QHS GTB Last administered on 04/03/19 21:13; Admin Dose 100 MG; Start 04/02/19 at 21:00 Ferrous Sulfate (Feosol Liquid Cup) 300 mg DAILY GTB Last administered on 04/04/19 09:35; Admin Dose 300 MG; Start 04/02/19 at 09:00 Acetaminophen/ Hydrocodone Bitart ([place] (5/325)) 1 tab BID GTB ; Start 04/02/19 at 09:00 Levetiracetam (Keppra Liquid) 500 mg BID GTB Last administered on 04/04/19 09:35; Admin Dose 500 MG; Start 04/02/19 at 09:00 Losartan Potassium (Cozaar) 100 mg DAILY GTB Last administered on 04/04/19 09:41; Admin Dose 100 MG; Start 04/02/19 at 09:00 Metformin HCl (Glucophage) 500 mg WITH BREAKFAST DINNE GTB Last administered on 04/04/19 09:40; Admin Dose 500 MG; Start 04/02/19 at 07:55 Albuterol (Proventil 0.083% (Neb)) 1.25 mg Q6H RESP THERAPY HHN Last administered on 04/04/19 09:03; Admin Dose 1.25 MG; Start 04/02/19 at 02:00 Miscellaneous Information 1 ea NOTE XX ; Start 04/01/19 at 22:00 Glucose (Glutose) 15 gm Q15M PRN PO DECREASED GLUCOSE; Start 04/01/19 at 22:00 Glucose (Glutose) 22.5 gm Q15M PRN PO DECREASED GLUCOSE; Start 04/01/19 at 22:00 Dextrose (D50w Syringe) 25 ml Q15M PRN IV DECREASED GLUCOSE Last administered on 04/04/19at 01:30; Admin Dose 25 ML; Start 04/01/19 at 22:00 Dextrose (D50w Syringe) 50 ml Q15M PRN IV DECREASED GLUCOSE; Start 04/01/19 at 22:00 Glucagon (Glucagen) 1 mg Q15M PRN IM DECREASED GLUCOSE; Start 04/01/19 at 22:00 Glucose (Glutose) 15 gm Q15M PRN BUCCAL DECREASED GLUCOSE; Start 04/01/19 at 22:00 Insulin Glargine (Lantus) 40 units Q12 SC Last administered on 04/04/19at 10:34; Admin Dose 40 UNITS; Start 04/02/19 at 09:00 Insulin Aspart (Novolog Insulin Pen) NOVOLOG *MILD* ALGORI... Q4 SC ; Start 04/02/19 at 05:00 Miscellaneous Information (Pending [facility] Order For Wound Care) This patient valenzuela... PRN PRN XX WOUND CARE; Start 04/02/19 at 05:00 Acetaminophen (Tylenol Liquid) 650 mg Q4H PRN PO MILD PAIN(1-3)OR ELEVATED TEMP Last administered on 04/02/19at 22:49; Admin Dose 650 MG; Start 04/02/19 at 08:30 Zinc Sulfate (Zinc Sulfate) 220 mg DAILY GTB Last administered on 04/04/19at 09:35; Admin Dose 220 MG; Start 04/03/19 at 09:00; Stop 04/16/19 at 08:59 Multivitamins/ Minerals (Theragran-M) 1 tab DAILY GTB Last administered on 04/04/19at 09:35; Admin Dose 1 TAB; Start 04/03/19 at 09:00 Ceftazidime 50 ml @ 100 mls/hr Q8 IVPB Last administered on 04/04/19at 05:45; Admin Dose 100 MLS/HR; Start 04/02/19 at 14:00 Vancomycin HCl (Vanco Iv Per Pharmacy) VANCOMYCIN PER PHARMACY PER PROTOCOL XX ; Start 04/02/19 at 14:00 Vancomycin HCl 250 ml @ 125 mls/hr Q24H IVPB Last administered on 04/03/19at 15:35; Admin Dose 125 MLS/HR; Start 04/03/19 at 15:00 Polyethylene Glycol (Miralax) 17 gm BID PO Last administered on 04/04/19at 09:35; Admin Dose 17 GM; Start 04/02/19 at 21:00 Potassium Chloride/Dextrose/ Sod Cl 1,000 ml @ 70 mls/hr [id number] IV Last administered on 04/04/19at 09:33; Admin Dose 70 MLS/HR; Start 04/03/19 at 14:00 Miscellaneous Information (*Rx Drug Level Order Reminder*) VANCO TR AT 1400 PRIOR... 1400 ONCE XX ; Start 04/05/19 at 14:00; Stop 04/05/19 at 14:01 Sodium Hypochlorite (Dakins Diluted (1/40)) 1 applic DAILY TP Last administered on 04/04/19at 09:43; Admin Dose 1 APPLIC; Start 04/03/19 at 19:30 Sodium Hypochlorite (Dakins Diluted (1/40)) 1 applic DAILY PRN TP WOUND CARE; Start 04/03/19 at 19:00 ADRIANA TOVAR Apr 04, 2019 12:03
--- NOTE | 2019-04-04 12:59 | PN ---
Date/Time of Note Date/Time of Note DATE: 04/04/19 TIME: 12:55 Assessment/Plan Lines/Catheters IV C[facility]ter Type (from [facility]): Peripheral IV Lane in Place (from [facility]): Yes Assessment/Plan Chief Complaint/Hosp Course 1. Sacral wound: -Recommend podiatry for heel wounds -debridement as needed -cont local care -frequent turning and off-loading -low air loss mattress -vitamin c -short term zinc -optimize nutrition -Wound culture 2.VDRF with tracheobronchitis -Pulmonary toilet -Antibiotics per sensitivity -Per pulmonary 3. UTI: -abx per sensitivity -frequent bladder emptying/cath care 4. Microcytic hypochromic anemia: No overt bleeding noted; history of CVA currently on Plavix -Monitor and transfuse as needed -Concern for GI bleed> work-up per GI/heme; consider holding anticoagulants if concern for GI bleed 5. Thrombocytosis -Treat infections 6. Hypocalcemia 7. Hypertension -Medical management 8. Diabetes: -Glucose optimization 9. Dysphagia status post PEG -Tube feeds with aspiration precautions Thank you. Patient seen and examined in collaboration with Dr. Butch Red. Subjective 24 Hr Interval Summary Pending egd colonoscopy. hh downtrending. No fevers, chills, sob, congested cough, cp, palpitations, valenzuela, dizziness, n/v/d/dysuria. Exam/Review of Systems Vital Signs Vitals Vital Signs Date Temp Pulse Resp B/P (MAP) Pulse Ox O2 O2 Flow FiO2 Time Delivery Rate 04/04/19 82 16 99 30 13:16 04/04/19 98.6 123/59 11:23 (80) 04/04/19 Mechanical 04:00 Ventilator Intake and Output 04/03/19 04/03/19 04/04/19 1515:00 23:00 07:00 IntakeIntake Total 50 ml OutputOutput Total 800 ml 1500 ml BalanceBalance -750 ml -1500 ml Exam Free Text/Dictation Constitutional: alert; No oriented Psych: nl mood/affect, confusion, other (Nonverbal); No anxiety Head: normocephalic, atraumatic Eyes: nl conjunctiva, EOMI, nl lids, nl sclera ENMT: nl external ears & nose, mucosa pink and moist; No nl lips & teeth (Poor dentition) Neck: supple, non-tender, other (Tracheostomy) Respiratory: normal air movement; No congested cough Cardiovascular: regular rate and rhythm, nl pulses Gastrointestinal: soft, non-tender, other (PEG); No distended Genitourinary - Female: nl external genitalia Musculoskeletal: nl extremities to inspection, nl gait and stance Extremities: normal pulses Neurological: nl mental status, nl speech, nl strength Skin: other (Sacral wound: Minimal slough, minimal periwound erythema, scant drainage; heel wounds With necrotic tissue); No rash or lesions Results Result Diagram: 04/04/1961604/04/19616 JASBIR WANG NP Apr 04, 2019 12:59
--- NOTE | 2019-04-04 14:48 | CONS ---
Assessment/Plan Assessment/Plan Hospital Course (Demo Recall) No acute events patient is noncommunicative in no distress, no fevers WBC 10.7 neutrophils 73 BUN 9 creatinine 0.42 Indwelling: trach, PEG Lane Allergies: Levaquin Antimicrobials: Andrew Macias Sputum culture + A. b Physical examination: This is a chronically ill-appearing elderly woman who is noncommunicative in no distress. Head atraumatic normocephalic sclera nonicteric neck is supple chest rise symmetrical breath sounds diminished bases heart S1-S2 abdomen obese soft bowel sounds hypoactive extremities contractured without cyanosis skin patient has unstageable chronic wound on her sacrum sacrum and necrotic wounds on the feet Assessment: 1. Sepsis 2. UTI per urinalysis 3. Acute tracheobronchitis, possible pneumonia 4. Chronic respiratory failure and dysphagia 5. Multiple chronic wounds 6. History of CVA 7. Acute on chronic anemia 8. Diabetes 9. Seizure disorder Plan: Stable, no fevers, WBC normalized, continue antibiotics, plan for EGD Consultation Date/Type/Reason Admit Date/Time Apr 01, 2019 at 16:23 Initial Consult Date 04/02/19 Type of Consult id Requesting Provider: DWAYNE CALDERON Date/Time of Note DATE: 04/04/19 TIME: 14:47 Exam/Review of Systems Exam Vitals Vital Signs Date Temp Pulse Resp B/P (MAP) Pulse Ox O2 O2 Flow FiO2 Time Delivery Rate 04/04/19 82 16 99 30 13:16 04/04/19 98.6 123/59 11:23 (80) 04/04/19 Mechanical 04:00 Ventilator Intake and Output 04/03/19 04/03/19 04/04/19 1515:00 23:00 07:00 IntakeIntake Total 50 ml OutputOutput Total 800 ml 1500 ml BalanceBalance -750 ml -1500 ml Results Result Diagram: 04/04/19 0617 04/04/19 0617 Results 24hrs Laboratory Tests Test 04/03/19 16:50 04/03/19 18:01 04/03/19 18:37 04/03/19 21:14 Haptoglobin Pending Lactate 494 Dehydrogenase Total Protein (PEP) 5.1 L Albumin (PEP) Pending [id number] Pending [id number] Pending Beta Globulins Pending Gamma Globulins Pending Protein Pending Electrophoresis Inte rpret Immunoglobulin G 673 L Immunoglobulin A 216 Immunoglobulin M 94 Serum Immunofixation SEE NOTE Bedside Glucose 59 L 129 72 Test 04/04/19 01:25 04/04/19 01:46 04/04/19 02:11 04/04/19 05:15 Bedside Glucose 53 L 125 102 74 Test 04/04/19 06:17 04/04/19 09:37 04/04/19 13:45 White Blood Count 10.7 # Red Blood Count 3.38 L Hemoglobin 8.5 L Hematocrit 26.6 L Mean Corpuscular 78.7 L Volume Mean Corpuscular 25.1 L Hemoglobin Mean Corpuscular 32.0 Hemoglobin Concent Red Cell 16.7 H Distribution Width Platelet Count 500 H Mean Platelet Volume 11.0 H Immature 2.100 H Granulocytes % Neutrophils % 73.0 Lymphocytes % 19.2 Monocytes % 3.5 Eosinophils % 1.7 Basophils % 0.5 Nucleated Red Blood 0.0 Cells % Immature 0.220 H Granulocytes # Neutrophils # 7.8 H Lymphocytes # 2.1 Monocytes # 0.4 Eosinophils # 0.2 Basophils # 0.1 Nucleated Red Blood 0.0 Cells # Sodium Level 144 Potassium Level 3.5 Chloride Level 110 Carbon Dioxide Level 23 Anion Gap 11 Blood Urea Nitrogen 9 Creatinine 0.42 L Est Glomerular Filtrat Rate mL/min Glucose Level 72 Calcium Level 8.0 L Bedside Glucose 80 81 Medications Medication Current Medications Pantoprazole (Protonix Tab) 40 mg DAILY@06 PO Last administered on 04/03/19at 05:53; Admin Dose 40 MG; Start 04/02/19 at 06:00 Albuterol (Proventil 0.083% (Neb)) 2.5 mg Q3H RESP THERAPY PRN NEB WHEEZING AND SOB; Start 04/01/19 at 22:00 Amlodipine Besylate (Norvasc) 10 mg DAILY GTB Last administered on 04/04/19at 09:41; Admin Dose 10 MG; Start 04/02/19 at 09:00 Ascorbic Acid (Vitamin C) 500 mg BID GTB Last administered on 04/04/19 09:35; Admin Dose 500 MG; Start 04/02/19 at 09:00 Chlorhexidine Gluconate (Peridex) 15 ml Q12H MM Last administered on 04/04/19at 09:35; Admin Dose 15 ML; Start 04/01/19 at 22:00 Clopidogrel Bisulfate (plaVIX) 75 mg DAILY GTB Last administered on 04/04/19 09:35; Admin Dose 75 MG; Start 04/02/19 at 09:00 Docusate Sodium (Colace Liquid Cup) 100 mg QHS GTB Last administered on 04/03/19at 21:13; Admin Dose 100 MG; Start 04/02/19 at 21:00 Ferrous Sulfate (Feosol Liquid Cup) 300 mg DAILY GTB Last administered on 04/04/19 09:35; Admin Dose 300 MG; Start 04/02/19 at 09:00 Acetaminophen/ Hydrocodone Bitart ([place] (5/325)) 1 tab BID GTB ; Start 04/02/19 at 09:00 Levetiracetam (Keppra Liquid) 500 mg BID GTB Last administered on 04/04/19 09:35; Admin Dose 500 MG; Start 04/02/19 at 09:00 Losartan Potassium (Cozaar) 100 mg DAILY GTB Last administered on 04/04/19at 09:41; Admin Dose 100 MG; Start 04/02/19 at 09:00 Metformin HCl (Glucophage) 500 mg WITH BREAKFAST DINNE GTB Last administered on 04/04/19 09:40; Admin Dose 500 MG; Start 04/02/19 at 07:55 Albuterol (Proventil 0.083% (Neb)) 1.25 mg Q6H RESP THERAPY HHN Last administered on 04/04/19at 09:03; Admin Dose 1.25 MG; Start 04/02/19 at 02:00 Miscellaneous Information 1 ea NOTE XX ; Start 04/01/19 at 22:00 Glucose (Glutose) 15 gm Q15M PRN PO DECREASED GLUCOSE; Start 04/01/19 at 22:00 Glucose (Glutose) 22.5 gm Q15M PRN PO DECREASED GLUCOSE; Start 04/01/19 at 22:00 Dextrose (D50w Syringe) 25 ml Q15M PRN IV DECREASED GLUCOSE Last administered on 04/04/19at 01:30; Admin Dose 25 ML; Start 04/01/19 at 22:00 Dextrose (D50w Syringe) 50 ml Q15M PRN IV DECREASED GLUCOSE; Start 04/01/19 at 22:00 Glucagon (Glucagen) 1 mg Q15M PRN IM DECREASED GLUCOSE; Start 04/01/19 at 22:00 Glucose (Glutose) 15 gm Q15M PRN BUCCAL DECREASED GLUCOSE; Start 04/01/19 at 22:00 Insulin Glargine (Lantus) 40 units Q12 SC Last administered on 04/04/19at 10:34; Admin Dose 40 UNITS; Start 04/02/19 at 09:00 Insulin Aspart (Novolog Insulin Pen) NOVOLOG *MILD* ALGORI... Q4 SC ; Start 04/02/19 at 05:00 Miscellaneous Information (Pending [facility] Order For Wound Care) This patient valenzuela... PRN PRN XX WOUND CARE; Start 04/02/19 at 05:00 Acetaminophen (Tylenol Liquid) 650 mg Q4H PRN PO MILD PAIN(1-3)OR ELEVATED TEMP Last administered on 04/02/19at 22:49; Admin Dose 650 MG; Start 04/02/19 at 08:30 Zinc Sulfate (Zinc Sulfate) 220 mg DAILY GTB Last administered on 04/04/19 09:35; Admin Dose 220 MG; Start 04/03/19 at 09:00; Stop 04/16/19 at 08:59 Multivitamins/ Minerals (Theragran-M) 1 tab DAILY GTB Last administered on 04/04/19 09:35; Admin Dose 1 TAB; Start 04/03/19 at 09:00 Ceftazidime 50 ml @ 100 mls/hr Q8 IVPB Last administered on 04/04/19at 13:45; Admin Dose 100 MLS/HR; Start 04/02/19 at 14:00 Vancomycin HCl (Vanco Iv Per Pharmacy) VANCOMYCIN PER PHARMACY PER PROTOCOL XX ; Start 04/02/19 at 14:00 Vancomycin HCl 250 ml @ 125 mls/hr Q24H IVPB Last administered on 04/03/19 15:35; Admin Dose 125 MLS/HR; Start 04/03/19 at 15:00 Polyethylene Glycol (Miralax) 17 gm BID PO Last administered on 04/04/19 09:35; Admin Dose 17 GM; Start 04/02/19 at 21:00 Potassium Chloride/Dextrose/ Sod Cl 1,000 ml @ 70 mls/hr [id number] IV Last administered on 6/20/19at 09:33; Admin Dose 70 MLS/HR; Start 04/03/19 at 14:00 Miscellaneous Information (*Rx Drug Level Order Reminder*) RUIZO TR AT 1400 PRIOR... 1400 ONCE XX ; Start 04/05/19 at 14:00; Stop 04/05/19 at 14:01 Sodium Hypochlorite (Dakins Diluted (1/40)) 1 applic DAILY TP Last administered on 04/04/19at 09:43; Admin Dose 1 APPLIC; Start 04/03/19 at 19:30 Sodium Hypochlorite (Dakins Diluted (1/40)) 1 applic DAILY PRN TP WOUND CARE; Start 04/03/19 at 19:00 ANTHONY JOY NP Apr 04, 2019 14:48
--- NOTE | 2019-04-04 16:01 | PN ---
Date/Time of Note Date/Time of Note DATE: 04/04/19 TIME: 15:57 Assessment/Plan VTE Prophylaxis Risk score (from Ns)>0 risk: 7 SCD applied (from Ns): Yes Pharmacological prophylaxis: NA/contraindicated Pharm contraindication: anticoag not tolerated, other Lines/Catheters [facility] (from [facility] Peripheral IV Urinary Cath still in place: Yes Reason Cath still needed: urinary retention Assessment/Plan Hospital Course Plan for EGD and colonoscopy today, patient continues on ventilatory support without distress, leukocytosis resolved, patient can be discharged to [facility] after GI work-up completed. Assessment/Plan - Sepsis secondary to tracheobronchitis. Based on recent intensity of sputum culture from long term facility, patient is started on IV gentamicin dosing as per pharmacy. Follow-up on cultures. Dr. Mcmullen is following in infection disease consultation. - Ventilator dependent respiratory failure. Dr. De La Torre is following in pulmonology consultation - Hypertension. Continue Norvasc and losartan. - Diabetes. Continue Lantus and sliding scale insulin in addition to metformin. - Seizure disorder, stable with current dose of Keppra. - Anemia multifactorial chronic disease and possible acute blood loss. - Rule out GI bleed. Dr. Prieto is following in gastroenterology consultation. - Hx of CVA, continue Plavix. - Multiple pressure ulcers continue wound care per wound care consult, offloading, air mattress, optimize nutrition. Further recommendations based on clinical course. Plan of care discussed with Dr. Mera. Result Diagram: 04/04/19 0617 04/04/19 0617 Results 24hrs Laboratory Tests Test 04/03/19 16:50 04/03/19 18:01 04/03/19 18:37 04/03/19 21:14 Haptoglobin Pending Lactate 494 Dehydrogenase Total Protein (PEP) 5.1 L Albumin (PEP) Pending [id number] Pending [id number] Pending Beta Globulins Pending Gamma Globulins Pending Protein Pending Electrophoresis Inte rpret Immunoglobulin G 673 L Immunoglobulin A 216 Immunoglobulin M 94 Serum Immunofixation SEE NOTE Bedside Glucose 59 L 129 72 Test 04/04/19 01:25 04/04/19 01:46 04/04/19 02:11 04/04/19 05:15 Bedside Glucose 53 L 125 102 74 Test 04/04/19 06:17 04/04/19 09:37 04/04/19 13:45 White Blood Count 10.7 # Red Blood Count 3.38 L Hemoglobin 8.5 L Hematocrit 26.6 L Mean Corpuscular 78.7 L Volume Mean Corpuscular 25.1 L Hemoglobin Mean Corpuscular 32.0 Hemoglobin Concent Red Cell 16.7 H Distribution Width Platelet Count 500 H Mean Platelet Volume 11.0 H Immature 2.100 H Granulocytes % Neutrophils % 73.0 Lymphocytes % 19.2 Monocytes % 3.5 Eosinophils % 1.7 Basophils % 0.5 Nucleated Red Blood 0.0 Cells % Immature 0.220 H Granulocytes # Neutrophils # 7.8 H Lymphocytes # 2.1 Monocytes # 0.4 Eosinophils # 0.2 Basophils # 0.1 Nucleated Red Blood 0.0 Cells # Sodium Level 144 Potassium Level 3.5 Chloride Level 110 Carbon Dioxide Level 23 Anion Gap 11 Blood Urea Nitrogen 9 Creatinine 0.42 L Est Glomerular Filtrat Rate mL/min Glucose Level 72 Calcium Level 8.0 L Bedside Glucose 80 81 Exam/Review of Systems Exam Vitals Vital Signs Date Temp Pulse Resp B/P (MAP) Pulse Ox O2 O2 Flow FiO2 Time Delivery Rate 04/04/19 84 16 98 30 15:45 04/04/19 98.6 123/59 11:23 (80) 04/04/19 Mechanical 04:00 Ventilator Intake and Output 04/03/19 04/03/19 04/04/19 1515:00 23:00 07:00 IntakeIntake Total 50 ml OutputOutput Total 800 ml 1500 ml BalanceBalance -750 ml -1500 ml Exam Constitutional: alert, non-verbal Respiratory: congested cough, diminished breath sounds Cardiovascular: regular rate and rhythm Gastrointestinal: soft, non-tender, other (G-tube) Musculoskeletal: nl extremities to inspection Extremities: normal pulses Neurological: confused Skin: nl turgor, other (Multiple pressure ulcers) Results Results 24hrs Laboratory Tests Test 04/03/19 16:50 04/03/19 18:01 04/03/19 18:37 04/03/19 21:14 Haptoglobin Pending Lactate 494 Dehydrogenase Total Protein (PEP) 5.1 L Albumin (PEP) Pending [id number] Pending [id number]-[id number] Pending Beta Globulins Pending Gamma Globulins Pending Protein Pending Electrophoresis Inte rpret Immunoglobulin G 673 L Immunoglobulin A 216 Immunoglobulin M 94 Serum Immunofixation SEE NOTE Bedside Glucose 59 L 129 72 Test 04/04/19 01:25 04/04/19 01:46 04/04/19 02:11 04/04/19 05:15 Bedside Glucose 53 L 125 102 74 Test 04/04/19 06:17 04/04/19 09:37 04/04/19 13:45 White Blood Count 10.7 # Red Blood Count 3.38 L Hemoglobin 8.5 L Hematocrit 26.6 L Mean Corpuscular 78.7 L Volume Mean Corpuscular 25.1 L Hemoglobin Mean Corpuscular 32.0 Hemoglobin Concent Red Cell 16.7 H Distribution Width Platelet Count 500 H Mean Platelet Volume 11.0 H Immature 2.100 H Granulocytes % Neutrophils % 73.0 Lymphocytes % 19.2 Monocytes % 3.5 Eosinophils % 1.7 Basophils % 0.5 Nucleated Red Blood 0.0 Cells % Immature 0.220 H Granulocytes # Neutrophils # 7.8 H Lymphocytes # 2.1 Monocytes # 0.4 Eosinophils # 0.2 Basophils # 0.1 Nucleated Red Blood 0.0 Cells # Sodium Level 144 Potassium Level 3.5 Chloride Level 110 Carbon Dioxide Level 23 Anion Gap 11 Blood Urea Nitrogen 9 Creatinine 0.42 L Est Glomerular Filtrat Rate mL/min Glucose Level 72 Calcium Level 8.0 L Bedside Glucose 80 81 Medications Medication Current Medications Pantoprazole (Protonix Tab) 40 mg DAILY@06 PO Last administered on 04/03/19at 05:53; Admin Dose 40 MG; Start 04/02/19 at 06:00 Albuterol (Proventil 0.083% (Neb)) 2.5 mg Q3H RESP THERAPY PRN NEB WHEEZING AND SOB; Start 04/01/19 at 22:00 Amlodipine Besylate (Norvasc) 10 mg DAILY GTB Last administered on 04/04/19at 09:41; Admin Dose 10 MG; Start 04/02/19 at 09:00 Ascorbic Acid (Vitamin C) 500 mg BID GTB Last administered on 04/04/19at 09:35; Admin Dose 500 MG; Start 04/02/19 at 09:00 Chlorhexidine Gluconate (Peridex) 15 ml Q12H MM Last administered on 04/04/19at 09:35; Admin Dose 15 ML; Start 04/01/19 at 22:00 Clopidogrel Bisulfate (plaVIX) 75 mg DAILY GTB Last administered on 04/04/19at 09:35; Admin Dose 75 MG; Start 04/02/19 at 09:00 Docusate Sodium (Colace Liquid Cup) 100 mg QHS GTB Last administered on 04/03/19at 21:13; Admin Dose 100 MG; Start 04/02/19 at 21:00 Ferrous Sulfate (Feosol Liquid Cup) 300 mg DAILY GTB Last administered on 04/04/19at 09:35; Admin Dose 300 MG; Start 04/02/19 at 09:00 Acetaminophen/ Hydrocodone Bitart ([place] (5/325)) 1 tab BID GTB ; Start 04/02/19 at 09:00 Levetiracetam (Keppra Liquid) 500 mg BID GTB Last administered on 04/04/19at 09:35; Admin Dose 500 MG; Start 04/02/19 at 09:00 Losartan Potassium (Cozaar) 100 mg DAILY GTB Last administered on 04/04/19at 09:41; Admin Dose 100 MG; Start 04/02/19 at 09:00 Metformin HCl (Glucophage) 500 mg WITH BREAKFAST DINNE GTB Last administered on 04/04/19at 09:40; Admin Dose 500 MG; Start 04/02/19 at 07:55 Albuterol (Proventil 0.083% (Neb)) 1.25 mg Q6H RESP THERAPY HHN Last a dministered on 04/04/19at 15:44; Admin Dose 1.25 MG; Start 04/02/19 at 02:00 Miscellaneous Information 1 ea NOTE XX ; Start 04/01/19 at 22:00 Glucose (Glutose) 15 gm Q15M PRN PO DECREASED GLUCOSE; Start 04/01/19 at 22:00 Glucose (Glutose) 22.5 gm Q15M PRN PO DECREASED GLUCOSE; Start 04/01/19 at 22: 00 Dextrose (D50w Syringe) 25 ml Q15M PRN IV DECREASED GLUCOSE Last administered on 04/04/19at 01:30; Admin Dose 25 ML; Start 04/01/19 at 22:00 Dextrose (D50w Syringe) 50 ml Q15M PRN IV DECREASED GLUCOSE; Start 04/01/19 at 22:00 Glucagon (Glucagen) 1 mg Q15M PRN IM DECREASED GLUCOSE; Start 04/01/19 at 22:00 Glucose (Glutose) 15 gm Q15M PRN BUCCAL DECREASED GLUCOSE; Start 04/01/19 at 22:00 Insulin Glargine (Lantus) 40 units Q12 SC Last administered on 04/04/19at 10:34; Admin Dose 40 UNITS; Start 04/02/19 at 09:00 Insulin Aspart (Novolog Insulin Pen) NOVOLOG *MILD* ALGORI... Q4 SC ; Start at 05:00 Miscellaneous Information (Pending [facility] Order For Wound Care) This patient valenzuela... PRN PRN XX WOUND CARE; Start 04/02/19 at 05:00 Acetaminophen (Tylenol Liquid) 650 mg Q4H PRN PO MILD PAIN(1-3)OR ELEVATED TEMP Last administered on 04/02/19 22:49; Admin Dose 650 MG; Start 04/02/19 at 08:30 Zinc Sulfate (Zinc Sulfate) 220 mg DAILY GTB Last administered on 04/04/19 09:35; Admin Dose 220 MG; Start 04/03/19 at 09:00; Stop 04/16/19 at 08:59 Multivitamins/ Minerals (Theragran-M) 1 tab DAILY GTB Last administered on 04/04/19 09:35; Admin Dose 1 TAB; Start 04/03/19 at 09:00 Ceftazidime 50 ml @ 100 mls/hr Q8 IVPB Last administered on 04/04/19 13:45; Admin Dose 100 MLS/HR; Start 04/02/19 at 14:00 Vancomycin HCl (Vanco Iv Per Pharmacy) VANCOMYCIN PER PHARMACY PER PROTOCOL XX ; Start 04/02/19 at 14:00 Vancomycin HCl 250 ml @ 125 mls/hr Q24H IVPB Last administered on 04/03/19 15:35; Admin Dose 125 MLS/HR; Start 04/03/19 at 15:00 Polyethylene Glycol (Miralax) 17 gm BID PO Last administered on 04/04/19 09:35; Admin Dose 17 GM; Start 04/02/19 at 21:00 Potassium Chloride/Dextrose/ Sod Cl 1,000 ml @ 70 mls/hr [id number] IV Last administered on 6/20/19at 09:33; Admin Dose 70 MLS/HR; Start 04/03/19 at 14:00 Miscellaneous Information (*Rx Drug Level Order Reminder*) VANCO TR AT 1400 PRIOR... 1400 ONCE XX ; Start 04/05/19 at 14:00; Stop 04/05/19 at 14:01 Sodium Hypochlorite (Dakins Diluted (1/40)) 1 applic DAILY TP Last administered on 04/04/19at 09:43; Admin Dose 1 APPLIC; Start 04/03/19 at 19:30 Sodium Hypochlorite (Dakins Diluted (1/40)) 1 applic DAILY PRN TP WOUND CARE; Start 04/03/19 at 19:00 DWAYNE CALDERON Apr 04, 2019 16:01
[2019-04-04] MEDS: VANCOMYCIN 1 GM 250 ML IVPB SCH (16:17)
[2019-04-04] MEDS: DOCUSATE SODIUM 10 MG/ML (10ML CUP) GTB SCH (21:54)
[2019-04-04] MEDS: ACETAMINOPHEN 650MG/20.3ML CUP PO PRN (21:56)
[2019-04-04] MEDS ORDERED: INSULIN GLARGINE [LANTus] (100 UNITS/ML) SYG SC ONE (23:30)
[2019-04-05] VITALS (31 sets, daily range): BP systolic 127–173; BP diastolic 61–83; PULSE 81–110; RESP 16–25
[2019-04-05] MEDS: ALBUTEROL 0.083% (NEB) 2.5 MG/3 ML AMP HHN SCH ×3 (01:00→13:41)
[2019-04-05] MEDS: INSULIN ASPART [NOVOLOG] 3 ML PEN SC SCH ×6 (01:00→21:00)
[2019-04-05] MEDS: D5W-0.45 NACL + KCL 20 MEQ 1,000 ML IV SCH (05:05)
--- NOTE | 2019-04-05 05:48 | PN ---
Date/Time of Note Date/Time of Note DATE: 04/05/19 TIME: 05:48 Assessment/Plan VTE Prophylaxis Risk score (from Nsg)>0 risk: 7 SCD applied (from Nsg): Yes Lines/Catheters IV Catheter Type (from Nrsg): Peripheral IV Urinary Cath still in place: Yes Reason Cath still needed: urinary retention Assessment/Plan Assessment/Plan - Sepsis secondary to tracheobronchitis. Based on recent intensity of sputum culture from [facility] facility, patient is started on IV gentamicin dosing as per pharmacy. Follow-up on cultures. Dr. Mcmullen is following in infection disease consultation. - Ventilator dependent respiratory failure. Dr. De La Torre is following in pulmonology consultation - Hypertension. Continue Norvasc and losartan. - Diabetes. Continue Lantus and sliding scale insulin in addition to metformin. - Seizure disorder, stable with current dose of Keppra. - Anemia multifactorial chronic disease and possible acute blood loss. - Rule out GI bleed. Dr. Prieto is following in gastroenterology consultation. - Hx of CVA, continue Plavix. - Multiple pressure ulcers continue wound care per wound care consult, offloading, air mattress, optimize nutrition. Further recommendations based on clinical course. Plan of care discussed with Dr. Mera. Result Diagram: 04/04/19 0617 04/04/19 0617 Results 24hrs Laboratory Tests Test 04/04/19 06:17 04/04/19 09:37 04/04/19 13:45 04/04/19 16:30 White Blood Count 10.7 # Red Blood Count 3.38 L Hemoglobin 8.5 L Hematocrit 26.6 L Mean Corpuscular 78.7 L Volume Mean Corpuscular 25.1 L Hemoglobin Mean Corpuscular 32.0 Hemoglobin Concent Red Cell 16.7 H Distribution Width Platelet Count 500 H Mean Platelet Volume 11.0 H Immature 2.100 H Granulocytes % Neutrophils % 73.0 Lymphocytes % 19.2 Monocytes % 3.5 Eosinophils % 1.7 Basophils % 0.5 Nucleated Red Blood 0.0 Cells % Immature 0.220 H Granulocytes # Neutrophils # 7.8 H Lymphocytes # 2.1 Monocytes # 0.4 Eosinophils # 0.2 Basophils # 0.1 Nucleated Red Blood 0.0 Cells # Sodium Level 144 Potassium Level 3.5 Chloride Level 110 Carbon Dioxide Level 23 Anion Gap 11 Blood Urea Nitrogen 9 Creatinine 0.42 L Est Glomerular Filtrat Rate mL/min Glucose Level 72 Calcium Level 8.0 L Bedside Glucose 80 81 Stool Occult Blood NEGATIVE Test 04/04/19 18:52 04/04/19 21:49 04/04/19 23:18 04/05/19 00:49 Bedside Glucose 126 93 71 79 Test 04/05/19 05:08 Bedside Glucose 93 Exam/Review of Systems Exam Vitals Vital Signs Date Temp Pulse Resp B/P (MAP) Pulse Ox O2 O2 Flow FiO2 Time Delivery Rate 04/05/19 77 16 100 30 05:00 04/05/19 97.5 127/61 04:13 (83) 04/04/19 Mechanical 04:00 Ventilator Intake and Output 04/04/19 04/04/19 04/05/19 1515:00 23:00 07:00 OutputOutput Total 1200 ml BalanceBalance -1200 ml Results Results 24hrs Laboratory Tests Test 04/04/19 06:17 04/04/19 09:37 04/04/19 13:45 04/04/19 16:30 White Blood Count 10.7 # Red Blood Count 3.38 L Hemoglobin 8.5 L Hematocrit 26.6 L Mean Corpuscular 78.7 L Volume Mean Corpuscular 25.1 L Hemoglobin Mean Corpuscular 32.0 Hemoglobin Concent Red Cell 16.7 H Distribution Width Platelet Count 500 H Mean Platelet Volume 11.0 H Immature 2.100 H Granulocytes % Neutrophils % 73.0 Lymphocytes % 19.2 Monocytes % 3.5 Eosinophils % 1.7 Basophils % 0.5 Nucleated Red Blood 0.0 Cells % Immature 0.220 H Granulocytes # Neutrophils # 7.8 H Lymphocytes # 2.1 Monocytes # 0.4 Eosinophils # 0.2 Basophils # 0.1 Nucleated Red Blood 0.0 Cells # Sodium Level 144 Potassium Level 3.5 Chloride Level 110 Carbon Dioxide Level 23 Anion Gap 11 Blood Urea Nitrogen 9 Creatinine 0.42 L Est Glomerular Filtrat Rate mL/min Glucose Level 72 Calcium Level 8.0 L Bedside Glucose 80 81 Stool Occult Blood NEGATIVE Test 04/04/19 18:52 04/04/19 21:49 04/04/19 23:18 04/05/19 00:49 Bedside Glucose 126 93 71 79 Test 04/05/19 05:08 Bedside Glucose 93 Medications Medication Current Medications Pantoprazole (Protonix Tab) 40 mg DAILY@06 PO Last administered on 04/03/19 05:53; Admin Dose 40 MG; Start 04/02/19 at 06:00 Albuterol (Proventil 0.083% (Neb)) 2.5 mg Q3H RESP THERAPY PRN NEB WHEEZING AND SOB; Start 04/01/19 at 22:00 Amlodipine Besylate (Norvasc) 10 mg DAILY GTB Last administered on 04/04/19 09:41; Admin Dose 10 MG; Start 04/02/19 at 09:00 Ascorbic Acid (Vitamin C) 500 mg BID GTB Last administered on 04/04/19 21:55; Admin Dose 500 MG; Start 04/02/19 at 09:00 Chlorhexidine Gluconate (Peridex) 15 ml Q12H MM Last administered on 04/04/19 21:56; Admin Dose 15 ML; Start 04/01/19 at 22:00 Clopidogrel Bisulfate (plaVIX) 75 mg DAILY GTB Last administered on 04/04/19 09:35; Admin Dose 75 MG; Start 04/02/19 at 09:00 Docusate Sodium (Colace Liquid Cup) 100 mg QHS GTB Last administered on 04/04/19 21:54; Admin Dose 100 MG; Start 04/02/19 at 21:00 Ferrous Sulfate (Feosol Liquid Cup) 300 mg DAILY GTB Last administered on 04/04/19 09:35; Admin Dose 300 MG; Start 04/02/19 at 09:00 Acetaminophen/ Hydrocodone Bitart ([place] (5/325)) 1 tab BID GTB ; Start 04/02/19 at 09:00 Levetiracetam (Keppra Liquid) 500 mg BID GTB Last administered on 04/04/19 21:54; Admin Dose 500 MG; Start 04/02/19 at 09:00 Losartan Potassium (Cozaar) 100 mg DAILY GTB Last administered on 04/04/19 09:41; Admin Dose 100 MG; Start 04/02/19 at 09:00 Metformin HCl (Glucophage) 500 mg WITH BREAKFAST DINNE GTB Last administered on 04/04/19 09:40; Admin Dose 500 MG; Start 04/02/19 at 07:55 Albuterol (Proventil 0.083% (Neb)) 1.25 mg Q6H RESP THERAPY HHN Last administered on 04/05/19at 01:00; Admin Dose 1.25 MG; Start 04/02/19 at 02:00 Miscellaneous Information 1 ea NOTE XX ; Start 04/01/19 at 22:00 Glucose (Glutose) 15 gm Q15M PRN PO DECREASED GLUCOSE; Start 04/01/19 at 22:00 Glucose (Glutose) 22.5 gm Q15M PRN PO DECREASED GLUCOSE; Start 04/01/19 at 22:00 Dextrose (D50w Syringe) 25 ml Q15M PRN IV DECREASED GLUCOSE Last administered on 04/04/19at 18:27; Admin Dose 25 ML; Start 04/01/19 at 22:00 Dextrose (D50w Syringe) 50 ml Q15M PRN IV DECREASED GLUCOSE; Start 04/01/19 at 22:00 Glucagon (Glucagen) 1 mg Q15M PRN IM DECREASED GLUCOSE; Start 04/01/19 at 22:00 Glucose (Glutose) 15 gm Q15M PRN BUCCAL DECREASED GLUCOSE; Start 04/01/19 at 22:00 Insulin Glargine (Lantus) 40 units Q12 SC Last administered on 04/04/19at 10:34; Admin Dose 40 UNITS; Start 04/02/19 at 09:00 Insulin Aspart (Novolog Insulin Pen) NOVOLOG *MILD* ALGORI... Q4 SC ; Start 04/02/19 at 05:00 Miscellaneous Information (Pending [facility] Order For Wound Care) This patient valenzuela... PRN PRN XX WOUND CARE; Start 04/02/19 at 05:00 Acetaminophen (Tylenol Liquid) 650 mg Q4H PRN PO MILD PAIN(1-3)OR ELEVATED TEMP Last administered on 04/04/19at 21:56; Admin Dose 650 MG; Start 04/02/19 at 08:30 Zinc Sulfate (Zinc Sulfate) 220 mg DAILY GTB Last administered on 04/04/19at 09:35; Admin Dose 220 MG; Start 04/03/19 at 09:00; Stop 04/16/19 at 08:59 Multivitamins/ Minerals (Theragran-M) 1 tab DAILY GTB Last administered on 04/04/19at 09:35; Admin Dose 1 TAB; Start 04/03/19 at 09:00 Ceftazidime 50 ml @ 100 mls/hr Q8 IVPB Last administered on 04/04/19at 21:56; Admin Dose 100 MLS/HR; Start 04/02/19 at 14:00 Vancomycin HCl (Vanco Iv Per Pharmacy) VANCOMYCIN PER PHARMACY PER PROTOCOL XX ; Start 04/02/19 at 14:00 Vancomycin HCl 250 ml @ 125 mls/hr Q24H IVPB Last administered on 04/04/19 16:17; Admin Dose 125 MLS/HR; Start 04/03/19 at 15:00 Polyethylene Glycol (Miralax) 17 gm BID PO Last administered on 04/04/19 21:55; Admin Dose 17 GM; Start 04/02/19 at 21:00 Potassium Chloride/Dextrose/ Sod Cl 1,000 ml @ 70 mls/hr [id number] IV Last administered on 04/05/19 05:05; Admin Dose 70 MLS/HR; Start 04/03/19 at 14:00 Miscellaneous Information (*Rx Drug Level Order Reminder*) VANCO TR AT 1400 PRIOR... 1400 ONCE XX ; Start 04/05/19 at 14:00; Stop 04/05/19 at 14:01 Sodium Hypochlorite (Dakins Diluted (1/40)) 1 applic DAILY TP Last administered on 04/04/19at 09:43; Admin Dose 1 APPLIC; Start 04/03/19 at 19:30 Sodium Hypochlorite (Dakins Diluted (1/40)) 1 applic DAILY PRN TP WOUND CARE; Start 04/03/19 at 19:00 DWIGHT POOLE Apr 05, 2019 05:48
[2019-04-05] MEDS: PANTOPRAZOLE (EC) 40 MG TAB PO SCH (06:00)
[2019-04-05] MEDS: CEFTAZIDIME 1GM/50 ML (PMX) 50 ML IVPB SCH ×3 (06:43→23:00)
[2019-04-05] MEDS: metFORMIN 500 MG TAB GTB SCH ×2 (07:55→17:55)
[2019-04-05] MEDS: MULTIVITAMINS/MINERALS TAB GTB SCH (09:00)
[2019-04-05] MEDS: ASCORBIC ACID 500 MG TAB GTB SCH ×2 (09:00→21:05)
[2019-04-05] MEDS: AMLODIPINE 10 MG TAB GTB SCH (09:00)
[2019-04-05] MEDS: HYDROCODONE/APAP (5/325) TAB GTB SCH ×2 (09:00→21:47)
[2019-04-05] MEDS: LOSARTAN 50 MG TAB GTB SCH (09:00)
[2019-04-05] MEDS: CLOPIDOGREL 75 MG TAB GTB SCH (09:00)
[2019-04-05] MEDS: POLYETHYLENE GLYCOL 17 GM PACKET PO SCH ×2 (09:00→21:06)
[2019-04-05] MEDS: LEVETIRACETAM (100 MG/ML) 5ML CUP GTB SCH ×2 (09:00→21:05)
[2019-04-05] MEDS: ZINC SULFATE 220 MG CAP GTB SCH (09:00)
[2019-04-05] MEDS: FERROUS SULFATE 60 MG/ML 5ML CUP GTB SCH (09:00)
--- NOTE | 2019-04-05 09:31 | PN ---
Date/Time of Note Date/Time of Note DATE: 04/05/19 TIME: 09:28 Assessment/Plan Lines/Catheters IV Catheter Type (from Nrs): Peripheral IV Lane in Place (from Nrs): Yes Assessment/Plan Chief Complaint/Hosp Course 1. Sacral wound: -Recommend podiatry for heel wounds -debridement as needed -cont local care -frequent turning and off-loading -low air loss mattress -vitamin c -short term zinc -optimize nutrition -Wound culture 2.VDRF with tracheobronchitis -Pulmonary toilet -Antibiotics per sensitivity -Per pulmonary 3. UTI: -abx per sensitivity -frequent bladder emptying/cath care 4. Microcytic hypochromic anemia: No overt bleeding noted; history of CVA currently on Plavix; H&H stable; EGD colonoscopy pending today -Monitor and transfuse as needed -Concern for GI bleed> work-up per GI/heme; consider holding anticoagulants if concern for GI bleed 5. Thrombocytosis -Treat infections 6. Hypocalcemia 7. Hypertension -Medical management 8. Diabetes: -Glucose optimization 9. Dysphagia status post PEG -Tube feeds with aspiration precautions Thank you. Patient seen and examined in collaboration with Dr. Butch Red. Subjective 24 Hr Interval Summary H&H stable. No overt bleeding noted. Pending EGD colonoscopy today. No fevers, labored breathing, congested cough, vomiting, hematochezia, melena, seizure, rash. Appears comfortable. Nonverbal indicators of pain not present. Exam/Review of Systems Vital Signs Vitals Vital Signs Date Temp Pulse Resp B/P (MAP) Pulse Ox O2 O2 Flow FiO2 Time Delivery Rate 04/05/19 88 08:50 04/05/19 17 100 30 07:52 04/05/19 98.0 142/83 Mechanical 07:33 (102) Ventilator Intake and Output 04/04/19 04/04/19 04/05/19 1515:00 23:00 07:00 OutputOutput Total 1200 ml 950 ml BalanceBalance -1200 ml -950 ml Exam Free Text/Dictation Constitutional: alert; No oriented Psych: nl mood/affect, confusion, other (Nonverbal); No anxiety Head: normocephalic, atraumatic Eyes: nl conjunctiva, EOMI, nl lids, nl sclera ENMT: nl external ears & nose, mucosa pink and moist; No nl lips & teeth (Poor dentition) Neck: supple, non-tender, other (Tracheostomy) Respiratory: normal air movement; No congested cough Cardiovascular: regular rate and rhythm, nl pulses Gastrointestinal: soft, non-tender, other (PEG); No distended Genitourinary - Female: nl external genitalia Musculoskeletal: nl extremities to inspection, nl gait and stance Extremities: normal pulses Neurological: nl mental status, nl speech, nl strength Skin: other (Sacral wound: Minimal slough, minimal periwound erythema, scant drainage; heel wounds With necrotic tissue); No rash or lesions Results Result Diagram: 04/05/1928 04/05/1928 JASBIR WANG NP Apr 05, 2019 09:31
[2019-04-05] MEDS: CHLORHEXIDINE GLUCONATE 15 ML UD CUP MM SCH ×2 (09:35→23:00)
[2019-04-05] MEDS: INSULIN GLARGINE [LANTus] (100 UNITS/ML) SYG SC SCH ×2 (11:00→21:00)
--- NOTE | 2019-04-05 11:11 | CONS ---
Assessment/Plan Assessment/Plan Hospital Course (Demo Recall) No acute events, looks comfortable, no fevers Indwelling: trach, PEG Lane Allergies: Levaquin Antimicrobials: Andrew Macias Sputum culture + A. b Physical examination: This is a chronically ill-appearing elderly woman who is noncommunicative in no distress. Head atraumatic normocephalic sclera nonicteric neck is supple chest rise symmetrical breath sounds diminished bases heart S1-S2 abdomen obese soft bowel sounds hypoactive extremities contractured without cyanosis skin patient has unstageable chronic wound on her sacrum sacrum and necrotic wounds on the feet Assessment: 1. Sepsis, resolving 2. UTI per urinalysis 3. Acute tracheobronchitis, possible pneumonia 4. Chronic respiratory failure and dysphagia 5. Multiple chronic wounds 6. History of CVA 7. Acute on chronic anemia 8. Diabetes 9. Seizure disorder Plan: Remains stable, no fevers, WBC normalized, continue antibiotics, wound care per surgery Consultation Date/Type/Reason Admit Date/Time Apr 01, 2019 at 16:23 Initial Consult Date 04/02/19 Type of Consult id Requesting Provider: DWAYNE CALDERON Date/Time of Note DATE: 04/05/19 TIME: 11:09 Exam/Review of Systems Exam Vitals Vital Signs Date Temp Pulse Resp B/P (MAP) Pulse Ox O2 O2 Flow FiO2 Time Delivery Rate 04/05/19 88 08:50 04/05/19 17 100 30 07:52 04/05/19 98.0 142/83 Mechanical 07:33 (102) Ventilator Intake and Output 04/04/19 04/04/19 04/05/19 1515:00 23:00 07:00 OutputOutput Total 1200 ml 950 ml BalanceBalance -1200 ml -950 ml Results Result Diagram: 04/05/19 0628 04/05/19 0628 Results 24hrs Laboratory Tests Test 04/04/19 13:45 04/04/19 16:30 04/04/19 18:09 04/04/19 18:23 Bedside Glucose 81 48 *L 57 L Stool Occult Blood NEGATIVE Test 04/04/19 18:52 04/04/19 21:49 04/04/19 23:18 04/05/19 00:49 Bedside Glucose 126 93 71 79 Test 04/05/19 05:08 04/05/19 06:28 04/05/19 09:34 Bedside Glucose 93 116 White Blood Count 9.2 Red Blood Count 3.56 L Hemoglobin 8.8 L Hematocrit 28.3 L Mean Corpuscular 79.5 L Volume Mean Corpuscular 24.7 L Hemoglobin Mean Corpuscular 31.1 L Hemoglobin Concent Red Cell 17.1 H Distribution Width Platelet Count 357 # Mean Platelet Volume 11.9 H Immature 1.600 H Granulocytes % Neutrophils % 71.0 Lymphocytes % 20.4 Monocytes % 4.5 Eosinophils % 1.7 Basophils % 0.8 Nucleated Red Blood 0.0 Cells % Immature 0.150 H Granulocytes # Neutrophils # 6.5 Lymphocytes # 1.9 Monocytes # 0.4 Eosinophils # 0.2 Basophils # 0.1 Nucleated Red Blood 0.0 Cells # Sodium Level 143 Potassium Level 3.5 Chloride Level 114 H Carbon Dioxide Level 21 Anion Gap 8 Blood Urea Nitrogen 7 Creatinine 0.38 L Est Glomerular Filtrat Rate mL/min Glucose Level 93 Calcium Level 8.1 L Medications Medication Current Medications Pantoprazole (Protonix Tab) 40 mg DAILY@06 PO Last administered on 04/03/19at 05:53; Admin Dose 40 MG; Start 04/02/19 at 06:00 Albuterol (Proventil 0.083% (Neb)) 2.5 mg Q3H RESP THERAPY PRN NEB WHEEZING AND SOB; Start 04/01/19 at 22:00 Amlodipine Besylate (Norvasc) 10 mg DAILY GTB Last administered on 04/04/19at 09:41; Admin Dose 10 MG; Start 04/02/19 at 09:00 Ascorbic Acid (Vitamin C) 500 mg BID GTB Last administered on 04/04/19at 21:55; Admin Dose 500 MG; Start 04/02/19 at 09:00 Chlorhexidine Gluconate (Peridex) 15 ml Q12H MM Last administered on 04/05/19 09:35; Admin Dose 15 ML; Start 04/01/19 at 22:00 Clopidogrel Bisulfate (plaVIX) 75 mg DAILY GTB Last administered on 04/04/19at 09:35; Admin Dose 75 MG; Start 04/02/19 at 09:00 Docusate Sodium (Colace Liquid Cup) 100 mg QHS GTB Last administered on 04/04/19at 21:54; Admin Dose 100 MG; Start 04/02/19 at 21:00 Ferrous Sulfate (Feosol Liquid Cup) 300 mg DAILY GTB Last administered on 04/04/19at 09:35; Admin Dose 300 MG; Start 04/02/19 at 09:00 Acetaminophen/ Hydrocodone Bitart ([place] (5/325)) 1 tab BID GTB ; Start 04/02/19 at 09:00 Levetiracetam (Keppra Liquid) 500 mg BID GTB Last administered on 04/04/19at 21:54; Admin Dose 500 MG; Start 04/02/19 at 09:00 Losartan Potassium (Cozaar) 100 mg DAILY GTB Last administered on 04/04/19at 09:41; Admin Dose 100 MG; Start 04/02/19 at 09:00 Metformin HCl (Glucophage) 500 mg WITH BREAKFAST DINNE GTB Last administered on 04/04/19at 09:40; Admin Dose 500 MG; Start 04/02/19 at 07:55 Albuterol (Proventil 0.083% (Neb)) 1.25 mg Q6H RESP THERAPY HHN Last administered on 04/05/19at 07:52; Admin Dose 1.25 MG; Start 04/02/19 at 02:00 Miscellaneous Information 1 ea NOTE XX ; Start 04/01/19 at 22:00 Glucose (Glutose) 15 gm Q15M PRN PO DECREASED GLUCOSE; Start 04/01/19 at 22:00 Glucose (Glutose) 22.5 gm Q15M PRN PO DECREASED GLUCOSE; Start 04/01/19 at 22:00 Dextrose (D50w Syringe) 25 ml Q15M PRN IV DECREASED GLUCOSE Last administered on 04/04/19at 18:27; Admin Dose 25 ML; Start 04/01/19 at 22:00 Dextrose (D50w Syringe) 50 ml Q15M PRN IV DECREASED GLUCOSE; Start 04/01/19 at 22:00 Glucagon (Glucagen) 1 mg Q15M PRN IM DECREASED GLUCOSE; Start 04/01/19 at 22:00 Glucose (Glutose) 15 gm Q15M PRN BUCCAL DECREASED GLUCOSE; Start 04/01/19 at 22:00 Insulin Aspart (Novolog Insulin Pen) NOVOLOG *MILD* ALGORI... Q4 SC ; Start 04/02/19 at 05:00 Miscellaneous Information (Pending [facility] Order For Wound Care) This patient valenzuela... PRN PRN XX WOUND CARE; Start 04/02/19 at 05:00 Acetaminophen (Tylenol Liquid) 650 mg Q4H PRN PO MILD PAIN(1-3)OR ELEVATED TEMP Last administered on 04/04/19at 21:56; Admin Dose 650 MG; Start 04/02/19 at 08:30 Zinc Sulfate (Zinc Sulfate) 220 mg DAILY GTB Last administered on 04/04/19 09:35; Admin Dose 220 MG; Start 04/03/19 at 09:00; Stop 04/16/19 at 08:59 Multivitamins/ Minerals (Theragran-M) 1 tab DAILY GTB Last administered on 04/04/19 09:35; Admin Dose 1 TAB; Start 04/03/19 at 09:00 Ceftazidime 50 ml @ 100 mls/hr Q8 IVPB Last administered on 04/05/19 06:43; Admin Dose 100 MLS/HR; Start 04/02/19 at 14:00 Vancomycin HCl (Vanco Iv Per Pharmacy) VANCOMYCIN PER PHARMACY PER PROTOCOL XX ; Start 04/02/19 at 14:00 Vancomycin HCl 250 ml @ 125 mls/hr Q24H IVPB Last administered on 04/04/19 16:17; Admin Dose 125 MLS/HR; Start 04/03/19 at 15:00 Polyethylene Glycol (Miralax) 17 gm BID PO Last administered on 04/04/19at 21:55; Admin Dose 17 GM; Start 04/02/19 at 21:00 Potassium Chloride/Dextrose/ Sod Cl 1,000 ml @ 70 mls/hr [id number] IV Last administered on 04/05/19at 05:05; Admin Dose 70 MLS/HR; Start 04/03/19 at 14:00 Miscellaneous Information (*Rx Drug Level Order Reminder*) VANCO TR AT 1400 PRIOR... 1400 ONCE XX ; Start 04/05/19 at 14:00; Stop 04/05/19 at 14:01 Sodium Hypochlorite (Dakins Diluted (1/40)) 1 applic DAILY TP Last administered on 04/04/19at 09:43; Admin Dose 1 APPLIC; Start 04/03/19 at 19:30 Sodium Hypochlorite (Dakins Diluted (1/40)) 1 applic DAILY PRN TP WOUND CARE; Start 04/03/19 at 19:00 Insulin Glargine (Lantus) 20 units Q12 SC Last administered on 04/05/19at 11:00; Admin Dose 20 UNITS; Start 04/05/19 at 11:00 ANTHONY JOY NP Apr 05, 2019 11:11
--- NOTE | 2019-04-05 11:28 | CONS ---
Consultation Date/Type/Reason Admit Date/Time Apr 01, 2019 at 16:23 Initial Consult Date 04/02/19 Type of Consult Pulmonary Patient is a 73-year-old lady who was admitted from detention with sepsis. Patient has been diagnosed a UTI and possibly pneumonia. Currently started on appropriate antimicrobial regimen. Patient does have advanced encephalopathy and was unable to give any history by herself whatsoever. Patient however was not in any distress whatsoever. History has been obtained from medical records. Past medical history; 1. VDRF. 2. Tracheostomy and G-tube placement. 3. Advanced encephalopathy. 4. Diabetes. 5. Hypertension. 6. History of seizure disorder. 7. Chronic anemia. Medications; reviewed. Allergies; Levaquin. Social history, family history, occupational history is not available. Review of system; unable to be obtained. General exam; elderly woman, on ventilator via tracheostomy, awake, currently in no distress. Patient is noncommunicative. Requesting Provider: DWAYNE CALDERON Date/Time of Note DATE: 04/05/19 TIME: 11:26 24 HR Interval Summary Free Text/Dictation Patient's condition is stable. Has remained hemodynamically stable. No untoward events reported. General exam; elderly woman, on ventilator via tracheostomy, noncommunicative. Currently in no distress. H EENT exam; supple neck, no JVD. No lymphadenopathy. Midline trachea. No thyromegaly. Tracheostomy in place. Insertion site is clean. No neck masses. Pupils are small bilaterally. Chest exam; diminished but clear breath sounds. S1-S2 audible, no murmurs. Regular rhythm. Abdomen exam; soft, G-tube in place. No organomegaly. Bowel sounds audible. Extremity exam; trace edema. M[employer] exam; patient remains noncommunicative. Ventilator setting; AC of 16, tidal volume 500, PEEP of 5, 40% FiO2. Assessment and recommendations; 1. Patient with history of VDRF and chronic encephalopathy admitted for sepsis due to multiple sources, possibly pneumonia due to pseudomonas aeruginosa isolated from sputum as well as Acinetobacter, patient also has multiple sacral wounds as well as UTI. Currently on appropriate antimicrobial regimen. 2. History of seizure disorder and diabetes. 3. History of CVA with ensuing severe encephalopathy. Continue current supportive care. Antibiotics per ID recommendations. Overall prognosis remains poor. Exam/Review of Systems Exam Vitals Vital Signs Date Temp Pulse Resp B/P (MAP) Pulse Ox O2 O2 Flow FiO2 Time Delivery Rate 04/05/19 97.9 91 22 139/79 99 Mechanical 11:18 (99) Ventilator 04/05/19 30 07:52 Intake and Output 04/04/19 04/04/19 04/05/19 1515:00 23:00 07:00 OutputOutput Total 1200 ml 950 ml BalanceBalance -1200 ml -950 ml Results Result Diagram: 04/05/1962704/05/19627 Results 24hrs Laboratory Tests Test 04/04/19 13:45 04/04/19 16:30 04/04/19 18:09 04/04/19 18:23 Bedside Glucose 81 48 *L 57 L Stool Occult Blood NEGATIVE Test 04/04/19 18:52 04/04/19 21:49 04/04/19 23:18 04/05/19 00:49 Bedside Glucose 126 93 71 79 Test 04/05/19 05:08 04/05/19 06:28 04/05/19 09:34 Bedside Glucose 93 116 White Blood Count 9.2 Red Blood Count 3.56 L Hemoglobin 8.8 L Hematocrit 28.3 L Mean Corpuscular 79.5 L Volume Mean Corpuscular 24.7 L Hemoglobin Mean Corpuscular 31.1 L Hemoglobin Concent Red Cell 17.1 H Distribution Width Platelet Count 357 # Mean Platelet Volume 11.9 H Immature 1.600 H Granulocytes % Neutrophils % 71.0 Lymphocytes % 20.4 Monocytes % 4.5 Eosinophils % 1.7 Basophils % 0.8 Nucleated Red Blood 0.0 Cells % Immature 0.150 H Granulocytes # Neutrophils # 6.5 Lymphocytes # 1.9 Monocytes # 0.4 Eosinophils # 0.2 Basophils # 0.1 Nucleated Red Blood 0.0 Cells # Sodium Level 143 Potassium Level 3.5 Chloride Level 114 H Carbon Dioxide Level 21 Anion Gap 8 Blood Urea Nitrogen 7 Creatinine 0.38 L Est Glomerular Filtrat Rate mL/min Glucose Level 93 Calcium Level 8.1 L Medications Medication Current Medications Pantoprazole (Protonix Tab) 40 mg DAILY@06 PO Last administered on 04/03/19at 05:53; Admin Dose 40 MG; Start 04/02/19 at 06:00 Albuterol (Proventil 0.083% (Neb)) 2.5 mg Q3H RESP THERAPY PRN NEB WHEEZING AND SOB; Start 04/01/19 at 22:00 Amlodipine Besylate (Norvasc) 10 mg DAILY GTB Last administered on 04/04/19 09:41; Admin Dose 10 MG; Start 04/02/19 at 09:00 Ascorbic Acid (Vitamin C) 500 mg BID GTB Last administered on 04/04/19 21:55; Admin Dose 500 MG; Start 04/02/19 at 09:00 Chlorhexidine Gluconate (Peridex) 15 ml Q12H MM Last administered on 04/05/19 09:35; Admin Dose 15 ML; Start 04/01/19 at 22:00 Clopidogrel Bisulfate (plaVIX) 75 mg DAILY GTB Last administered on 04/04/19 09:35; Admin Dose 75 MG; Start 04/02/19 at 09:00 Docusate Sodium (Colace Liquid Cup) 100 mg QHS GTB Last administered on 04/04/19 21:54; Admin Dose 100 MG; Start 04/02/19 at 21:00 Ferrous Sulfate (Feosol Liquid Cup) 300 mg DAILY GTB Last administered on 04/04 09:35; Admin Dose 300 MG; Start 04/02/19 at 09:00 Acetaminophen/ Hydrocodone Bitart ([place] (5/325)) 1 tab BID GTB ; Start 04/02/19 at 09:00 Levetiracetam (Keppra Liquid) 500 mg BID GTB Last administered on 04/04/19 21:54; Admin Dose 500 MG; Start 04/02/19 at 09:00 Losartan Potassium (Cozaar) 100 mg DAILY GTB Last administered on 04/04/19 09:41; Admin Dose 100 MG; Start 04/02/19 at 09:00 Metformin HCl (Glucophage) 500 mg WITH BREAKFAST DINNE GTB Last administered on 04/04/19 09:40; Admin Dose 500 MG; Start 04/02/19 at 07:55 Albuterol (Proventil 0.083% (Neb)) 1.25 mg Q6H RESP THERAPY HHN Last administered on 04/05/19 07:52; Admin Dose 1.25 MG; Start 04/02/19 at 02:00 Miscellaneous Information 1 ea NOTE XX ; Start 04/01/19 at 22:00 Glucose (Glutose) 15 gm Q15M PRN PO DECREASED GLUCOSE; Start 04/01/19 at 22:00 Glucose (Glutose) 22.5 gm Q15M PRN PO DECREASED GLUCOSE; Start 04/01/19 at 22:00 Dextrose (D50w Syringe) 25 ml Q15M PRN IV DECREASED GLUCOSE Last administered on 04/04/19at 18:27; Admin Dose 25 ML; Start 04/01/19 at 22:00 Dextrose (D50w Syringe) 50 ml Q15M PRN IV DECREASED GLUCOSE; Start 04/01/19 at 22:00 Glucagon (Glucagen) 1 mg Q15M PRN IM DECREASED GLUCOSE; Start 04/01/19 at 22:00 Glucose (Glutose) 15 gm Q15M PRN BUCCAL DECREASED GLUCOSE; Start 04/01/19 at 22:00 Insulin Aspart (Novolog Insulin Pen) NOVOLOG *MILD* ALGORI... Q4 SC ; Start 04/02/19 at 05:00 [facility]isc[facility] This patient valenzuela... PRN PRN XX WOUND CARE; Start 04/02/19 at 05:00 Acetaminophen (Tylenol Liquid) 650 mg Q4H PRN PO MILD PAIN(1-3)OR ELEVATED TEMP Last administered on 04/04/19at 21:56; Admin Dose 650 MG; Start 04/02/19 at 08:30 Zinc Sulfate (Zinc Sulfate) 220 mg DAILY GTB Last administered on 04/04/19at 09:35; Admin Dose 220 MG; Start 04/03/19 at 09:00; Stop 04/16/19 at 08:59 Multivitamins/ Minerals (Theragran-M) 1 tab DAILY GTB Last administered on 04/04/19at 09:35; Admin Dose 1 TAB; Start 04/03/19 at 09:00 Ceftazidime 50 ml @ 100 mls/hr Q8 IVPB Last administered on 04/05/19at 06:43; Admin Dose 100 MLS/HR; Start 04/02/19 at 14:00 Vancomycin HCl (Vanco Iv Per Pharmacy) VANCOMYCIN PER PHARMACY PER PROTOCOL XX ; Start 04/02/19 at 14:00 Vancomycin HCl 250 ml @ 125 mls/hr Q24H IVPB Last administered on 04/04/19at 16:17; Admin Dose 125 MLS/HR; Start 04/03/19 at 15:00 Polyethylene Glycol (Miralax) 17 gm BID PO Last administered on 04/04/19at 21:55; Admin Dose 17 GM; Start 04/02/19 at 21:00 Potassium Chloride/Dextrose/ Sod Cl 1,000 ml @ 70 mls/hr [id number] IV Last administered on 04/05/19at 05:05; Admin Dose 70 MLS/HR; Start 04/03/19 at 14:00 Miscellaneous Information (*Rx Drug Level Order Reminder*) VANCO TR AT 1 400 PRIOR... 1400 ONCE XX ; Start 04/05/19 at 14:00; Stop 04/05/19 at 14:01 Sodium Hypochlorite (Dakins Diluted (1/40)) 1 applic DAILY TP Last administered on 04/04/19at 09:43; Admin Dose 1 APPLIC; Start 04/03/19 at 19:30 Sodium Hypochlorite (Dakins Diluted (1/40)) 1 applic DAILY PRN TP WOUND CARE; Start 04/03/19 at 19:00 Insulin Glargine (Lantus) 20 units Q12 SC Last administered on 04/05/19at 11:00; Admin Dose 20 UNITS; Start 04/05/19 at 11:00 ADRIANA TOVAR Apr 05, 2019 11:28
--- NOTE | 2019-04-05 16:03 | CONS ---
Assessment/Plan Assessment/Plan Hospital Course (Demo Recall) 73 yo with Sepsis secondary to tracheobronchitis on antibiotics, dementia, CVA, chronic respiratory failure, hypertension, seizure disorder, and diabetes. We are asked to see her for anemi #anemia I suspect that her anemia is likely multifactorial due to infection/antibiotics she is not in DIC her TSH, B12, folate are normal iron studies are consistent with anemia of chronic disease given that she has adequate iron with ferritin 165 SPEP and IF show no evidence of monoclonal proteins haptoglobin, LDH, mazin followup Consultation Date/Type/Reason Admit Date/Time Apr 01, 2019 at 16:23 Initial Consult Date 04/03/19 Requesting Provider: DWAYNE CALDERON Date/Time of Note DATE: 04/05/19 TIME: 16:02 24 HR Interval Summary Subjective hx not possible: pt non-verbal Exam/Review of Systems Exam Vitals Vital Signs Date Temp Pulse Resp B/P (MAP) Pulse Ox O2 O2 Flow FiO2 Time Delivery Rate 04/05/19 87 16 100 30 15:19 04/05/19 99.0 157/69 Mechanical 15:05 (98) Ventilator Intake and Output 04/04/19 04/04/19 04/05/19 1515:00 23:00 07:00 OutputOutput Total 1200 ml 950 ml BalanceBalance -1200 ml -950 ml Constitutional: frail Head: normocephalic Eyes: nl conjunctiva, EOMI, nl lids, nl sclera, PERRL Results Result Diagram: 04/05/19 0628 04/05/19 0628 Results 24hrs Laboratory Tests Test 04/04/19 16:30 04/04/19 18:09 04/04/19 18:23 04/04/19 18:52 Stool Occult Blood NEGATIVE Bedside Glucose 48 *L 57 L 126 Test 04/04/19 21:49 04/04/19 23:18 04/05/19 00:49 04/05/19 05:08 Bedside Glucose 93 71 79 93 Test 04/05/19 06:28 04/05/19 09:34 04/05/19 12:59 04/05/19 14:16 White Blood Count 9.2 Red Blood Count 3.56 L Hemoglobin 8.8 L Hematocrit 28.3 L Mean Corpuscular 79.5 L Volume Mean Corpuscular 24.7 L Hemoglobin Mean Corpuscular 31.1 L Hemoglobin Concent Red Cell 17.1 H Distribution Width Platelet Count 357 # Mean Platelet Volume 11.9 H Immature 1.600 H Granulocytes % Neutrophils % 71.0 Lymphocytes % 20.4 Monocytes % 4.5 Eosinophils % 1.7 Basophils % 0.8 Nucleated Red Blood 0.0 Cells % Immature 0.150 H Granulocytes # Neutrophils # 6.5 Lymphocytes # 1.9 Monocytes # 0.4 Eosinophils # 0.2 Basophils # 0.1 Nucleated Red Blood 0.0 Cells # Sodium Level 143 Potassium Level 3.5 Chloride Level 114 H Carbon Dioxide Level 21 Anion Gap 8 Blood Urea Nitrogen 7 Creatinine 0.38 L Est Glomerular Filtrat Rate mL/min Glucose Level 93 Calcium Level 8.1 L Bedside Glucose 116 116 Vancomycin Level 8.3 L Trough Medications Medication Current Medications Pantoprazole (Protonix Tab) 40 mg DAILY@06 PO Last administered on 04/03/19 05:53; Admin Dose 40 MG; Start 04/02/19 at 06:00 Albuterol (Proventil 0.083% (Neb)) 2.5 mg Q3H RESP THERAPY PRN NEB WHEEZING AND SOB; Start 04/01/19 at 22:00 Amlodipine Besylate (Norvasc) 10 mg DAILY GTB Last administered on 04/04/19 09:41; Admin Dose 10 MG; Start 04/02/19 at 09:00 Ascorbic Acid (Vitamin C) 500 mg BID GTB Last administered on 04/04/19 21:55; Admin Dose 500 MG; Start 04/02/19 at 09:00 Chlorhexidine Gluconate (Peridex) 15 ml Q12H MM Last administered on 04/05/19 09:35; Admin Dose 15 ML; Start 04/01/19 at 22:00 Clopidogrel Bisulfate (plaVIX) 75 mg DAILY GTB Last administered on 04/04/19 09:35; Admin Dose 75 MG; Start 04/02/19 at 09:00 Docusate Sodium (Colace Liquid Cup) 100 mg QHS GTB Last administered on 04/04/19 21:54; Admin Dose 100 MG; Start 04/02/19 at 21:00 Ferrous Sulfate (Feosol Liquid Cup) 300 mg DAILY GTB Last administered on 03/17 09:35; Admin Dose 300 MG; Start 04/02/19 at 09:00 Acetaminophen/ Hydrocodone Bitart ([place] (5/325)) 1 tab BID GTB ; Start 04/02/19 at 09:00 Levetiracetam (Keppra Liquid) 500 mg BID GTB Last administered on 04/04/19at 21:54; Admin Dose 500 MG; Start 04/02/19 at 09:00 Losartan Potassium (Cozaar) 100 mg DAILY GTB Last administered on 04/04/19at 09:41; Admin Dose 100 MG; Start 04/02/19 at 09:00 Metformin HCl (Glucophage) 500 mg WITH BREAKFAST DINNE GTB Last administered on 04/04/19at 09:40; Admin Dose 500 MG; Start 04/02/19 at 07:55 Miscellaneous Information 1 ea NOTE XX ; Start 04/01/19 at 22:00 Glucose (Glutose) 15 gm Q15M PRN PO DECREASED GLUCOSE; Start 04/01/19 at 22:00 Glucose (Glutose) 22.5 gm Q15M PRN PO DECREASED GLUCOSE; Start 04/01/19 at 22:00 Dextrose (D50w Syringe) 25 ml Q15M PRN IV DECREASED GLUCOSE Last administered on 04/04/19at 18:27; Admin Dose 25 ML; Start 04/01/19 at 22:00 Dextrose (D50w Syringe) 50 ml Q15M PRN IV DECREASED GLUCOSE; Start 04/01/19 at 22:00 Glucagon (Glucagen) 1 mg Q15M PRN IM DECREASED GLUCOSE; Start 04/01/19 at 22:00 Glucose (Glutose) 15 gm Q15M PRN BUCCAL DECREASED GLUCOSE; Start 04/01/19 at 22:00 Insulin Aspart (Novolog Insulin Pen) NOVOLOG *MILD* ALGORI... Q4 SC ; Start 04/02/19 at 05:00 Miscellaneous Information (Pending [facility] Order For Wound Care) This patient valenzuela... PRN PRN XX WOUND CARE; Start 04/02/19 at 05:00 Acetaminophen (Tylenol Liquid) 650 mg Q4H PRN PO MILD PAIN(1-3)OR ELEVATED TEMP Last administered on 04/04/19at 21:56; Admin Dose 650 MG; Start 04/02/19 at 08:30 Zinc Sulfate (Zinc Sulfate) 220 mg DAILY GTB Last administered on 04/04/19 09:35; Admin Dose 220 MG; Start 04/03/19 at 09:00; Stop 04/16/19 at 08:59 Multivitamins/ Minerals (Theragran-M) 1 tab DAILY GTB Last administered on 04/04/19 09:35; Admin Dose 1 TAB; Start 04/03/19 at 09:00 Ceftazidime 50 ml @ 100 mls/hr Q8 IVPB Last administered on 04/05/19 13:31; Admin Dose 100 MLS/HR; Start 04/02/19 at 14:00 Vancomycin HCl (Vanco Iv Per Pharmacy) VANCOMYCIN PER PHARMACY PER PROTOCOL XX ; Start 04/02/19 at 14:00 Vancomycin HCl 250 ml @ 125 mls/hr Q24H IVPB Last administered on 04/04/19 16:17; Admin Dose 125 MLS/HR; Start 04/03/19 at 15:00 Polyethylene Glycol (Miralax) 17 gm BID PO Last administered on 04/04/19 21:55; Admin Dose 17 GM; Start 04/02/19 at 21:00 Potassium Chloride/Dextrose/ Sod Cl 1,000 ml @ 70 mls/hr [id number] Last admi nistered on 04/05/19 05:05; Admin Dose 70 MLS/HR; Start 04/03/19 at 14:00 Sodium Hypochlorite (Dakins Diluted (1/40)) 1 applic DAILY TP Last administered on 04/04/19 09:43; Admin Dose 1 APPLIC; Start 04/03/19 at 19:30 Sodium Hypochlorite (Dakins Diluted (1/40)) 1 applic DAILY PRN TP WOUND CARE; Start 04/03/19 at 19:00 Insulin Glargine (Lantus) 20 units Q12 SC Last administered on 04/05/19 11:00; Admin Dose 20 UNITS; Start 04/05/19 at 11:00 Albuterol (Ventolin Hfa) 4 puff Q6H RESP THERAPY INH ; Start 04/05/19 at 16:30 RITA RHODES Apr 05, 2019 16:03
[2019-04-05] MEDS: VANCOMYCIN 1 GM 250 ML IVPB SCH (16:15)
[2019-04-05] MEDS: DAKINS 0.0125%(1/40) 473 ML SOLUTION TP SCH (16:16)
[2019-04-05] MEDS ORDERED: ALBUTEROL HFA 8 GM INHALER INH PRN (16:30)
[2019-04-05] MEDS ORDERED: ALBUTEROL HFA 8 GM INHALER INH SCH (16:30)
[2019-04-05] MEDS ORDERED: PROPOFOL 20 ML ONE (18:46)
--- NOTE | 2019-04-05 18:58 | PREAC ---
Date/Time of Note Date/Time of Note DATE: 04/05/19 TIME: 18:56 Anesthesia Eval and Record Evaluation Time Pre-Procedure Interview DATE: 04/05/19 TIME: 18:56 Age 73 Sex female NPO: 8 hrs Preoperative diagnosis anemia ocult GI bleeding Planned procedure EGD olonoscopy Past Medical History Past Medical History: Includes Cardio: HTN Endo: Diabetes Pulm: Other (res failure) Neuro: CVA, Seizure disorder Heme: Anemia Surgery & Anesthesia Issues No known issue Meds Anticoagulation: No Beta Eloy within 24 hr: No Reason Beta Eloy not given: Pt. not on B-Eloy Reported Medications Ascorbic Acid (Vitamin C) 500 Mg Tab, 500 MG GTB BID, TAB 04/01/19 Cran/Vitc/Mannose/Inulin/Brom (Uti-Stat Liquid) 3,875 Mg/30 Ml Liquid, 30 ML GTB BID 04/01/19 Acetaminophen* (Tylenol*) 325 Mg Tablet, 650 MG GTB NEEDED PRN for TRACH TUBE CHANGE, TAB 04/01/19 Amino Acids/Protein Hydrolys (PRO-STAT LIQUID) 30 Ml Liquid.pkt, 30 ML GTB BID SUGAR FREE 04/01/19 Prednisone* (Prednisone*) 20 Mg Tab, 20 MG GTB DAILY, TAB 04/01/19 Potassium Chloride* (Potassium Chloride*) 20 Meq/15 Ml Liquid, 22.5 ML GTB DAILY, ML 04/01/19 Hydrocodone/Acetaminophen ([place] 5-325 Tablet) 1 Each Tablet, 1 EACH GTB BID, TAB 04/01/19 Losartan Potassium* (Losartan Potassium*) 100 Mg Tablet, 100 MG GTB DAILY, TAB HOLD IF SBP<110 OR HR<60 04/01/19 Levetiracetam* (Keppra* (Ped)) 100 Mg/Ml Liq, 5 ML GTB BID for 30 Days, BOTTLE 04/01/19 Metformin Hcl* (Metformin Hcl*) 500 Mg Tablet, 500 MG GTB WITH BREAKFAST DINNE, #60 TAB 04/01/19 Ferrous Sulfate* (Ferrous Sulfate*) 220 Mg/5 Ml Solution, 7.5 ML GTB DAILY, ML 04/01/19 Cranberry Extract (Cranberry) 425 Mg Capsule, 425 MG GTB BID, CAP 04/01/19 Docusate Sodium* (Colace*) 100 Mg Capsule, 100 MG GTB QHS, #30 CAP 6/17/19 Clopidogrel Bisulfate* (Clopidogrel Bisulfate*) 75 Mg Tablet, 75 MG GTB DAILY, #30 TAB 04/01/19 Loratadine* (Loratadine*) 10 Mg Tablet, 10 MG GTB DAILY, #30 TAB 04/01/19 Chlorhexidine Gluconate (Peridex) 473 Ml Mouthwash, 15 ML MM Q12H, BOTTLE 04/01/19 Insulin Glargine,Hum.rec.anlog (Basaglar Kwikpen U-100) 100 Unit/1 Ml Insuln.pen, 63 UNIT SC Q12H, EA 04/01/19 Amlodipine Besylate* (Amlodipine Besylate*) 10 Mg Tablet, 10 MG GTB DAILY, #30 TAB HOLD FOR SBP <110 OR HR<60 04/01/19 Albuterol Sulfate* (Albuterol Sulfate* Neb) 0.083%-3 Ml Neb, 2.5 MG NEB Q3H PRN for WHEEZING AND SOB, #30 VIAL 04/01/19 Discontinued Reported Medications Tramadol HCl (Tramadol HCl) 50 Mg Tablet, 50 MG GTB Q8H PRN for PAIN LEVEL 6-10, #120 TAB 06/19/17 Bisacodyl* (Dulcolax*) 5 Mg Tablet.dr, 10 MG PO DAILY PRN for CONSTIPATION, TAB 06/19/17 Acetaminophen* (Acetaminophen*) 650 Mg Tablet, 650 MG PO Q4 PRN for PAIN AND OR ELEVATED TEMP, #30 TAB 06/19/17 Magnesium Hydroxide* (Milk Of Magnesia*) 400 Mg/5 Ml Oral.susp, 30 ML GTB DAILY PRN for CONSTIPATION, ML 06/19/17 Ipratropium-Albuterol (Ipratropium-Albuterol) 0.5-3 Mg/3 Ml Ampul.neb, 3 ML INHALATION Q4 PRN for SHORTNESS OF BREATH, #30 VIAL 06/19/17 Clonidine Hcl* (Clonidine Hcl*) 0.1 Mg Tab, 0.1 MG GTB Q6 PRN for ELEVATED BLOOD PRESSURE, TAB 06/19/17 Insulin Detemir (Levemir Flextouch) 100 Unit/1 Ml Insuln.pen, 40 UNIT SQ WITH BREAKFAST 06/19/17 Levetiracetam* (Keppra*) 500 Mg/5 Ml Solution, 500 MG GTB BID, BOTTLE 06/19/17 Tramadol HCl (Tramadol HCl) 50 Mg Tablet, 50 MG GTB Q12, #60 TAB 06/19/17 Zinc Sulfate* (Zinc Sulfate*) 220 Mg Tablet, 220 MG GTB DAILY, TAB 06/19/17 Ascorbic Acid* (Vitamin C*) 500 Mg Capsule.sa, 500 MG GTB DAILY, CAP 06/19/17 Clopidogrel Bisulfate (Clopidogrel) 75 Mg Tablet, 75 MG GTB DAILY, #30 TAB 06/19/17 Cephalexin* (Cephalexin*) 500 Mg Capsule, 500 MG GTB Q6, #28 CAP 06/19/17 Losartan Potassium* (Cozaar*) 100 Mg Tablet, 100 MG GTB QHS, #30 TAB 06/19/17 Current Medications Pantoprazole (Protonix Tab) 40 mg DAILY@06 PO Last administered on 04/03/19at 05:53; Admin Dose 40 MG; Start 04/02/19 at 06:00 Albuterol (Proventil 0.083% (Neb)) 2.5 mg Q3H RESP THERAPY PRN NEB WHEEZING AND SOB; Start 04/01/19 at 22:00 Amlodipine Besylate (Norvasc) 10 mg DAILY GTB Last administered on 04/04/19at 09:41; Admin Dose 10 MG; Start 04/02/19 at 09:00 Ascorbic Acid (Vitamin C) 500 mg BID GTB Last administered on 04/04/19at 21:55; Admin Dose 500 MG; Start 04/02/19 at 09:00 Chlorhexidine Gluconate (Peridex) 15 ml Q12H MM Last administered on 04/05/19at 09:35; Admin Dose 15 ML; Start 04/01/19 at 22:00 Clopidogrel Bisulfate (plaVIX) 75 mg DAILY GTB Last administered on 04/04/19at 09:35; Admin Dose 75 MG; Start 04/02/19 at 09:00 Docusate Sodium (Colace Liquid Cup) 100 mg QHS GTB Last administered on 04/04/19at 21:54; Admin Dose 100 MG; Start 04/02/19 at 21:00 Ferrous Sulfate (Feosol Liquid Cup) 300 mg DAILY GTB Last administered on 04/04/19at 09:35; Admin Dose 300 MG; Start 04/02/19 at 09:00 Acetaminophen/ Hydrocodone Bitart ([place] (5/325)) 1 tab BID GTB ; Start 04/02/19 at 09:00 Levetiracetam (Keppra Liquid) 500 mg BID GTB Last administered on 04/04/19at 21:54; Admin Dose 500 MG; Start 04/02/19 at 09:00 Losartan Potassium (Cozaar) 100 mg DAILY GTB Last administered on 04/04/19at 09:41; Admin Dose 100 MG; Start 04/02/19 at 09:00 Metformin HCl (Glucophage) 500 mg WITH BREAKFAST DINNE GTB Last administered on 04/04/19at 09:40; Admin Dose 500 MG; Start 04/02/19 at 07:55 Miscellaneous Information 1 ea NOTE XX ; Start 04/01/19 at 22:00 Glucose (Glutose) 15 gm Q15M PRN PO DECREASED GLUCOSE; Start 04/01/19 at 22:00 Glucose (Glutose) 22.5 gm Q15M PRN PO DECREASED GLUCOSE; Start 04/01/19 at 22:00 Dextrose (D50w Syringe) 25 ml Q15M PRN IV DECREASED GLUCOSE Last administered on 04/04/19at 18:27; Admin Dose 25 ML; Start 04/01/19 at 22:00 Dextrose (D50w Syringe) 50 ml Q15M PRN IV DECREASED GLUCOSE; Start 04/01/19 at 22:00 Glucagon (Glucagen) 1 mg Q15M PRN IM DECREASED GLUCOSE; Start 04/01/19 at 22:00 Glucose (Glutose) 15 gm Q15M PRN BUCCAL DECREASED GLUCOSE; Start 04/01/19 at 22:00 Insulin Aspart (Novolog Insulin Pen) NOVOLOG *MILD* ALGORI... Q4 SC ; Start 04/02/19 at 05:00 Miscellaneous Information (Pending [facility] Order For Wound Care) This patient valenzuela... PRN PRN XX WOUND CARE; Start 04/02/19 at 05:00 Acetaminophen (Tylenol Liquid) 650 mg Q4H PRN PO MILD PAIN(1-3)OR ELEVATED TEMP Last administered on 04/04/19at 21:56; Admin Dose 650 MG; Start 04/02/19 at 08:30 Zinc Sulfate (Zinc Sulfate) 220 mg DAILY GTB Last administered on 04/04/19 09:35; Admin Dose 220 MG; Start 04/03/19 at 09:00; Stop 04/16/19 at 08:59 Multivitamins/ Minerals (Theragran-M) 1 tab DAILY GTB Last administered on 04/04/19at 09:35; Admin Dose 1 TAB; Start 04/03/19 at 09:00 Ceftazidime 50 ml @ 100 mls/hr Q8 IVPB Last administered on 04/05/19 13:31; Admin Dose 100 MLS/HR; Start 04/02/19 at 14:00 Vancomycin HCl (Vanco Iv Per Pharmacy) VANCOMYCIN PER PHARMACY PER PROTOCOL XX ; Start 04/02/19 at 14:00 Vancomycin HCl 250 ml @ 125 mls/hr Q24H IVPB Last administered on 04/05/19 16:15; Admin Dose 125 MLS/HR; Start 04/03/19 at 15:00; Stop 04/05/19 at 20:00 Polyethylene Glycol (Miralax) 17 gm BID PO Last administered on 04/04/19at 21:55; Admin Dose 17 GM; Start 04/02/19 at 21:00 Potassium Chloride/Dextrose/ Sod Cl 1,000 ml @ 70 mls/hr [id number] IV Last administered on 04/05/19at 05:05; Admin Dose 70 MLS/HR; Start 04/03/19 at 14:00 Sodium Hypochlorite (Dakins Diluted (1/40)) 1 applic DAILY TP Last administered on 04/05/19at 16:16; Admin Dose 1 APPLIC; Start 04/03/19 at 19:30 Sodium Hypochlorite (Dakins Diluted (1/40)) 1 applic DAILY PRN TP WOUND CARE; Start 04/03/19 at 19:00 Insulin Glargine (Lantus) 20 units Q12 SC Last administered on 04/05/19at 11:00; Admin Dose 20 UNITS; Start 04/05/19 at 11:00 Albuterol (Ventolin Hfa) 4 puff Q6H RESP THERAPY INH ; Start 04/05/19 at 16:30 Vancomycin HCl 250 ml @ 125 mls/hr Q18H IVPB ; Start 04/06/19 at 12:00 Meds reviewed: Yes Allergies Coded Allergies: levofloxacin (Unverified Allergy, Unknown, 04/01/19) Allergies Reviewed: Yes Labs/Studies Labs Reviewed: Reviewed by anesthesiologist Result Diagram: 04/05/1928 04/05/1928 Laboratory Tests 04/05/19 06:28 test: N/A Studies: ECG (sr), CXR (no acute changes) Pre-procedure Exam Last vitals Vital Signs Date Temp Pulse Resp B/P (MAP) Pulse Ox O2 O2 Flow FiO2 Time Delivery Rate 04/05/19 92 16 98 30 17:50 04/05/19 98.8 151/66 Mechanical 17:34 (94) Ventilator Airway: Adequate mouth opening (trach) Mallampati: Mallampati I Teeth: Normal Lung: Normal Heart: Normal ASA Physical Status ASA physical status: 3 Emergency: None Planned Anesthetic General/MAC: MAC Planned Pain Management Parenteral pain med Pre-operative Attestations Prior to commencing anesthesia and surgery, the patient was re-evaluated, there was verification of: *The patient's identity *The results of appropriate recent lab work and preoperative vital signs *The above evaluation not changing prior to induction *Anesthetic plan, risk benefits, alternative and complications discussed with patient/family; questions answered; patient/family understands, accepts and wishes to proceed. JACOB IVAN MD Apr 05, 2019 18:58
[2019-04-05] MEDS: DOCUSATE SODIUM 10 MG/ML (10ML CUP) GTB SCH (21:05)
--- NOTE | 2019-04-05 21:24 | CONS ---
DATE OF ADMISSION: 04/01/2019 DATE OF CONSULTATION: PROCEDURE: Esophagogastroduodenoscopy. PREOPERATIVE DIAGNOSES: The patient presenting with history of severe anemia and guaiac positive sto ols, rule out bleeding ulcer disease, gastritis, esophagitis. POSTOPERATIVE DIAGNOSES: 1. Severe erosive distal esophagitis. 2. The gastrostomy tube was found to be in the proper position. No ulcer noted. 3. Duodenum normal. DESCIRPTION OF PROCEDURE: After the informed written consent was obtained, the patient was asked to lie on the left lateral position. Intravenous anesthesia was given by anesthesiologist, Dr. Kristin gallardo. When the patient became somnolent, the Olympus video upper endoscope was inserted into the oroph arynx, then into the esophagus. Esophagus showed evidence of multiple erosions and pseudomembrane ty pe of picture of the mucosa in the distal esophagus. Biopsies were obtained to rule out opportunisti c infections like Krystle, CMV or herpes. Scope at this time was advanced into the stomach. Followi ng this, a gastrostomy tube was noted in the proper position. No evidence of ulcer noted in this are a. Rest of the stomach appeared normal. Duodenum appeared normal. No additional abnormalities dete cted and the procedure was terminated. PLAN: Recommend to continue Protonix 40 mg a day and wait for the results of the biopsy report from the esophagus. Dictated By: MONIKA LEO MD NC/NTS Conf#: [id number] DID#: [id number] CC: NICOLE BUCHANAN MD;*EndCC*
[2019-04-06] VITALS: PULSE 92
[2019-04-06 00:23] VITALS: PULSE 110
--- NOTE | 2019-04-06 09:05 | GILP ---
DATE OF PROCEDURE: 04/05/2019 PROCEDURE: Colonoscopy. PREOPERATIVE DIAGNOSIS: The patient presenting with history of severe anemia and occult gastrointest inal bleeding, rule out colorectal neoplasm, arteriovenous malformation. POSTOPERATIVE DIAGNOSIS: Most of the colon and the descending colon, transverse colon appeared finn l; however, there is significant stools noted in the colon. Hence, a detailed evaluation was not pos sible. DESCRIPTION OF PROCEDURE: After informed written consent was obtained, the patient was asked to lie on the left lateral side. The patient was given intravenous anesthesia by anesthesiologist, Dr. Sanford stallworth. When the patient became somnolent, the Olympus video colonoscope was inserted into the rectu m and scope was advanced all the way to the distal ascending colon. Stool was found to be scattered all along the colon and at this time, scope was withdrawn and no major lesion noted. Small polyps ca nnot be excluded. Scope, at this time, procedure was terminated. PLAN: Recommend repeating the procedure at a later date. Dictated By: MONIKA RODRIGUEZ/NTS Conf#: [id number] DID#: [id number] CC: NICOLE BUCHANAN MD;*EndCC*
[2019-04-06] MEDS ORDERED: VANCOMYCIN 1 GM 250 ML IVPB SCH (12:00)
--- NOTE | 2019-04-07 07:27 | PAC ---
Date/Time of Note Date/Time of Note DATE: 04/07/19 TIME: 07:27 Post-Anesthesia Notes Post-Anesthesia Note Last documented vital signs Vital Signs Date Temp Pulse Resp B/P (MAP) Pulse Ox O2 O2 Flow FiO2 Time Delivery Rate 04/06/19 110 00:23 04/05/19 97.8 106 18 153/69 100 Mechanical 23:46 (97) Ventilator Trach Collar 04/05/19 30 23:00 Activity: WNL Respiratory function: WNL Cardiovascular function: WNL Mental status: Baseline Pain reasonably controlled: Yes Hydration appropriate: Yes Nausea/Vomiting absent: No JACOB IVAN MD Apr 07, 2019 07:27
== END 2019-04-06 00:18 | DRG 870 ==
LOC: E/R 12:45 → TEL 16:23
PROVIDERS: ADMIT Internal Medicine; ATTEND Internal Medicine
PROC: 5A1955Z Respiratory Ventilation, Greater than 96 Consecutive Hours (ICD-10-PCS; principal; 2019-04-01)
PROC: 4A033R1 Measurement of Arterial Saturation, Peripheral, Percutaneous Approach (ICD-10-PCS; 2019-04-01)
PROC: 0DB58ZX Excision of Esophagus, Via Natural or Artificial Opening Endoscopic, Diagnostic (ICD-10-PCS; 2019-04-01)
PROC: 30233N1 Transfusion of Nonautologous Red Blood Cells into Peripheral Vein, Percutaneous Approach (ICD-10-PCS; 2019-04-03)
PROC: 0DJD8ZZ Inspection of Lower Intestinal Tract, Via Natural or Artificial Opening Endoscopic (ICD-10-PCS; 2019-04-05)
DX: A41.9 Sepsis, unspecified organism (principal); J18.9 Pneumonia, unspecified organism; N39.0 Urinary tract infection, site not specified; J96.10 Chronic respiratory failure, unspecified whether with hypoxia or hypercapnia; Z99.11 Dependence on respirator [ventilator] status; J44.0 Chronic obstructive pulmonary disease with (acute) lower respiratory infection; G93.40 Encephalopathy, unspecified; K22.10 Ulcer of esophagus without bleeding; R65.20 Severe sepsis without septic shock; E87.5 Hyperkalemia; F03.90 Unspecified dementia, unspecified severity, without behavioral disturbance, psychotic disturbance, mood disturbance, and anxiety; I10 Essential (primary) hypertension; G40.909 Epilepsy, unspecified, not intractable, without status epilepticus; E11.9 Type 2 diabetes mellitus without complications; J40 Bronchitis, not specified as acute or chronic; D64.9 Anemia, unspecified; I25.10 Atherosclerotic heart disease of native coronary artery without angina pectoris; R13.10 Dysphagia, unspecified; D47.3 Essential (hemorrhagic) thrombocythemia; E83.51 Hypocalcemia; D50.0 Iron deficiency anemia secondary to blood loss (chronic); D63.8 Anemia in other chronic diseases classified elsewhere; L89.620 Pressure ulcer of left heel, unstageable; Z93.1 Gastrostomy status; L89.150 Pressure ulcer of sacral region, unstageable; Z79.4 Long term (current) use of insulin; Z86.73 Personal history of transient ischemic attack (TIA), and cerebral infarction without residual deficits
CPT/HCPCS: 36415; 36430; 36600; 71045; 80048; 80053; 80170; 80202; 81001; 82270; 82607; 82728; 82746; 82784; 82803; 82962; 83010; 83540; 83605; 83615; 84155; 84165; 84443; 84484; 85025; 85610; 85730; 86320; 86850; 86880; 86900; 86901; 86920; 87045; 87070; 87081; 87086; 88305; 88313; 89220; 93005; 94002; 94003; 94640; 94664; 96374; 96375; J1580; J1815; J2185; J3370; J3480; J7030; J7050; P9016

== ENCOUNTER 2019-04-21 09:44 | Inpatient (IN) | payer MEDICARE, OTHER ==
[2019-04-21] VITALS (38 sets, daily range): BP systolic 118–172; BP diastolic 45–84; PULSE 102–123; RESP 22–34; Ht 152.4 cm; Wt 56.3 kg
[~2019-04-21] VITALS: Ht 152.4 cm; Wt 56.3 kg
[~2019-04-21 09:44] MED LIST changes: -ACET-2047 PO; +ACET325T33 GTB; +ALBU2.5V3 NEB; +AMIN30LI GTB; +AMLO-147 GTB; +ASC500 GTB; -ASCO500C7 GTB; -BISA-57 PO; -CEPH500C GTB; +CHLO473M4 MM; -CLON-379 GTB; +CLOP75TA19 GTB; -CLOP75TA27 GTB; +CRAN3875 GTB; +CRAN425C6 GTB; +DOCU-144 GTB; +FERR220S13 GTB; +HYDR-4011 GTB; -INSU100I27 SQ; +INSU100I33 SC; -IPRA3AMP29 INHALATION; +KEP100S GTB; -LEVE500S8 GTB; +LORA10TA3 GTB; +LOSA100T15 GTB; -LOSA100T3 GTB; -MAGN400O19 GTB; +METF500T24 GTB; +POTA20LI15 GTB; +PRED20TA GTB; -TRAM50TA2 GTB; -ZINC220T GTB
[2019-04-21] MEDS ORDERED: SOD CHLORIDE 0.9% 1,000 ML IV SCH (13:00)
[2019-04-21] MEDS ORDERED: VANCOMYCIN IV PER PHARMACY XX SCH (13:00)
[2019-04-21] MEDS ORDERED: ONDANSETRON 4 MG INJ IV PRN (13:00)
[2019-04-21] MEDS ORDERED: ACETAMINOPHEN 1000MG/100ML IV 100 ML IVPB PRN (13:00)
--- NOTE | 2019-04-21 13:19 | CONS ---
Consult Date/Type/Reason Admit Date/Time Apr 21, 2019 at 10:34 Initial Consult Date Date/Time of Note DATE: 04/21/19 TIME: 13:16 Subjective Pt transferred from [place] with r/o GIB and desaturation - not on vent - con't resp support - H/H stable - seen by GFI team - will monitor in ICU now. ROS: per nurse - no F/C/N/V + SOB ? GIB Objective Vitals Vital Signs Date Temp Pulse Resp B/P (MAP) Pulse Ox O2 O2 Flow FiO2 Time Delivery Rate 04/21/19 10.0 35 12:56 04/21/19 112 28 100 Aerosol 12:56 04/21/19 131/52 11:45 (78) 04/21/19 98.6 11:00 Exam General: WN/WD/NAD, AOx 0 HEENT: Unicetric/atraumatic/EOMI (does not follow commands) NECK: trach Lymph: no lymphadenopathy HEART: regular with no S3, II/ systolic murmur at apex LUNGS: Coarse sounds ABD: soft, NT, ND, +BS + PEG : Intact Neuro: non focal SKIN: chronic changes EXT: trace edema Results/Medications Home Meds Reported Medications Ascorbic Acid (Vitamin C) 500 Mg Tab, 500 MG GTB BID, TAB 04/01/19 Cran/Vitc/Mannose/Inulin/Brom (Uti-Stat Liquid) 3,875 Mg/30 Ml Liquid, 30 ML GTB BID 04/01/19 Acetaminophen* (Tylenol*) 325 Mg Tablet, 650 MG GTB NEEDED PRN for TRACH TUBE CHANGE, TAB 04/01/19 Amino Acids/Protein Hydrolys (PRO-STAT LIQUID) 30 Ml Liquid.pkt, 30 ML GTB BID SUGAR FREE 04/01/19 Prednisone* (Prednisone*) 20 Mg Tab, 20 MG GTB DAILY, TAB 04/01/19 Potassium Chloride* (Potassium Chloride*) 20 Meq/15 Ml Liquid, 22.5 ML GTB DAILY, ML 04/01/19 Hydrocodone/Acetaminophen ([place] 5-325 Tablet) 1 Each Tablet, 1 EACH GTB BID, TAB 04/01/19 Losartan Potassium* (Losartan Potassium*) 100 Mg Tablet, 100 MG GTB DAILY, TAB HOLD IF SBP<110 OR HR<60 04/01/19 Levetiracetam* (Keppra* (Ped)) 100 Mg/Ml Liq, 5 ML GTB BID for 30 Days, BOTTLE 04/01/19 Metformin Hcl* (Metformin Hcl*) 500 Mg Tablet, 500 MG GTB WITH BREAKFAST DINNE, #60 TAB 04/01/19 Ferrous Sulfate* (Ferrous Sulfate*) 220 Mg/5 Ml Solution, 7.5 ML GTB DAILY, ML 04/01/19 Cranberry Extract (Cranberry) 425 Mg Capsule, 425 MG GTB BID, CAP 04/01/19 Docusate Sodium* (Colace*) 100 Mg Capsule, 100 MG GTB QHS, #30 CAP 04/01/19 Clopidogrel Bisulfate* (Clopidogrel Bisulfate*) 75 Mg Tablet, 75 MG GTB DAILY, #30 TAB 04/01/19 Loratadine* (Loratadine*) 10 Mg Tablet, 10 MG GTB DAILY, #30 TAB 04/01/19 Chlorhexidine Gluconate (Peridex) 473 Ml Mouthwash, 15 ML MM Q12H, BOTTLE 04/01/19 Insulin Glargine,Hum.rec.anlog (Basaglar Kwikpen U-100) 100 Unit/1 Ml Insuln.pen, 63 UNIT SC Q12H, EA 04/01/19 Amlodipine Besylate* (Amlodipine Besylate*) 10 Mg Tablet, 10 MG GTB DAILY, #30 TAB HOLD FOR SBP <110 OR HR<60 04/01/19 Albuterol Sulfate* (Albuterol Sulfate* Neb) 0.083%-3 Ml Neb, 2.5 MG NEB Q3H PRN for WHEEZING AND SOB, #30 VIAL 04/01/19 Medications Current Medications Sodium Chloride 1,000 ml @ 100 mls/hr Q10H IV ; Start 04/21/19 at 13:00 Pantoprazole 80 mg/Sodium Chloride 100 ml @ 10 mls/hr Q10H IV ; Start 04/21/19 at 18:00 Assessment/Plan Hospital Course (Demo Recall) 1. CHF - diast HF - euvolemic by exam now. 2. Tracheobronchitis - BP better - Rx with anti-Bx. 2. Respiratory failure. Continue vent support and breathing treatment. Pulmonary to follow in ICU - not on vent now. 4. Hypertension. Continue Norvasc and losartan. As needed 5. Diabetes. Continue Lantus and sliding scale insulin in addition to metformin. Insulin PRN 7. Seizure: Stable with current dose of Keppra. 6. Anemia, most likely anemia of chronic disease. GI follows - eval r/o bleed. 8. CAD - no CP now - no intervention planned. CHEY PLATT MD Apr 21, 2019 13:19
[2019-04-21] MEDS: DEXTROSE 5%-0.45% NACL 1,000 ML IV SCH (13:40)
[2019-04-21] MEDS ORDERED: LEVALBUTEROL (NEB) 0.63 MG/3 ML AMP HHN PRN (14:00)
[2019-04-21] MEDS ORDERED: GLUCOSE GEL 15 GRAM TUBE PO PRN ×2 (14:00)
[2019-04-21] MEDS ORDERED: GLUCAGON 1 MG INJ IM PRN (14:00)
[2019-04-21] MEDS ORDERED: GLUCOSE GEL 15 GRAM TUBE BUCCAL PRN (14:00)
[2019-04-21] MEDS ORDERED: DEXTROSE 50% 50 ML SYRINGE IV PRN ×2 (14:00)
[2019-04-21] MEDS ORDERED: COLLAGENASE 5 GM (UD JAR) TOP PRN (14:30)
[2019-04-21] MEDS ORDERED: VANCOMYCIN HCL 1.25 GM in SOD CHLORIDE 0.9% 250 ML IVPB SCH (15:30)
--- NOTE | 2019-04-21 15:52 | PN ---
Date/Time of Note Date/Time of Note DATE: 04/21/19 TIME: 15:45 Assessment/Plan VTE Prophylaxis Risk score (from Ns)>0 risk: 7 SCD applied (from [facility]): Yes SCD contraindicated: other Pharmacological prophylaxis: other Pharm contraindication: other Lines/Catheters IV Catheter Type (from [facility]): Mid Line Central line still needed: Yes Urinary Cath still in place: No Reason Cath still needed: urinary retention Assessment/Plan Assessment/Plan GI bleed - admit to ICU - GI consult notified -Continue n.p.o., IV fluids. - Possible Sepsis secondary to tracheobronchitis. - ID notified - Ventilator dependent respiratory failure. -Continue vent support and breathing treatment. - Pulmonary consult - Hypertension. Continue Norvasc and losartan. - Diabetes. Continue Lantus and sliding scale insulin in addition to metformin. - Seizure: Stable with current dose of Keppra. - Seizure precautions - Anemia, most likely anemia of chronic disease. - CVA,-Plavix on hold 2/2 gi bleed - Multiple pressure ulcers - wound care per wound care consult - offloading -air mattress -optimize nutrition. Critical care time spent is 30 minutes.Further recommendations based on clinical course. Plan of care discussed with Dr. Mera. Result Diagram: 04/21/19 1500 Results 24hrs Laboratory Tests Test 04/21/19 15:00 White Blood Count 12.3 #H Red Blood Count 3.52 L Hemoglobin 8.3 L Hematocrit 28.1 L Mean Corpuscular Volume 79.8 L Mean Corpuscular Hemoglobin 23.6 L Mean Corpuscular Hemoglobin Concent 29.5 L Red Cell Distribution Width 18.7 H Platelet Count 397 Mean Platelet Volume 10.6 H Immature Granulocytes % 2.100 H Neutrophils % 66.9 Lymphocytes % 22.2 Monocytes % 7.3 Eosinophils % 1.1 Basophils % 0.4 Nucleated Red Blood Cells % 0.0 Immature Granulocytes # 0.260 H Neutrophils # 8.2 H Lymphocytes # 2.7 Monocytes # 0.9 Eosinophils # 0.1 Basophils # 0.1 Nucleated Red Blood Cells # 0.0 Subjective 24 Hr Interval Summary Free Text/Dictation CHIEF COMPLAINT AND HISTORY OF PRESENT ILLNESS: The patient is a 73-year-old female, a resident of [facility]. Patient valenzuela past history of dementia, CVA, chronic respiratory failure, hypertension, seizure disorder, and diabetes, sputum positive for acinetobacter. Patient was transferred from [place] with c/o GI bleed. The patient is admitted to ICU for further evaluation and management. REVIEW OF SYSTEMS: Was limited as the patient is noncommunicative. There was no reported breakthrough seizure. No reported shortness of breath, no reported GI bleed. No reported vomiting or diarrhea. No reported abdominal distention. The patient has been tolerating G-tube feeding well. The patient is noncommunicative and does not even track. PAST MEDICAL HISTORY: As stated above. PAST SURGICAL HISTORY: The patient has tracheostomy and G-tube placement. SOCIAL HISTORY: Unknown. FAMILY HISTORY: Unknown. Subjective hx not possible: pt non-verbal Constitutional: requiring IVF, requiring O2 Exam/Review of Systems Exam Vitals Vital Signs Date Temp Pulse Resp B/P (MAP) Pulse Ox O2 O2 Flow FiO2 Time Delivery Rate 04/21/19 105 27 96 Aerosol 5.0 28 15:05 04/21/19 141/56 13:15 (84) 04/21/19 98.6 12:00 Constitutional: well developed, non-verbal, frail Psych: nl mood/affect Eyes: nl lids ENMT: nl external ears & nose Respiratory: diminished breath sounds Cardiovascular: nl pulses, other (s1s2) Gastrointestinal: soft, other ( G-tube INTACT) Musculoskeletal: muscle weakness, range of motion Extremities: normal pulses Skin: other (decubs) Results Results 24hrs Laboratory Tests Test 04/21/19 15:00 White Blood Count 12.3 #H Red Blood Count 3.52 L Hemoglobin 8.3 L Hematocrit 28.1 L Mean Corpuscular Volume 79.8 L Mean Corpuscular Hemoglobin 23.6 L Mean Corpuscular Hemoglobin Concent 29.5 L Red Cell Distribution Width 18.7 H Platelet Count 397 Mean Platelet Volume 10.6 H Immature Granulocytes % 2.100 H Neutrophils % 66.9 Lymphocytes % 22.2 Monocytes % 7.3 Eosinophils % 1.1 Basophils % 0.4 Nucleated Red Blood Cells % 0.0 Immature Granulocytes # 0.260 H Neutrophils # 8.2 H Lymphocytes # 2.7 Monocytes # 0.9 Eosinophils # 0.1 Basophils # 0.1 Nucleated Red Blood Cells # 0.0 Medications Medication Current Medications Dextrose/Sodium Chloride 1,000 ml @ 100 mls/hr Q10H IV Last administered on 04/21/19at 13:40; Admin Dose 100 MLS/HR; Start 04/21/19 at 13:00 Levetiracetam 100 ml @ 400 mls/hr Q12 IVPB ; Start 04/21/19 at 21:00 Vancomycin HCl (Vanco Iv Per Pharmacy) VANCOMYCIN PER PHARMACY PER PROTOCOL XX ; Start 04/21/19 at 13:00 Cefepime HCl 50 ml @ 100 mls/hr Q24H IVPB ; Start 04/21/19 at 21:00 Acetaminophen 100 ml @ 400 mls/hr Q6H PRN IVPB FEVER; Start 04/21/19 at 13:00; Stop 04/22/19 at 12:59 Ondansetron HCl (Zofran Inj) 4 mg Q6H PRN IV NAUSEA AND/OR VOMITING; Start 04/21/19 at 13:00 Levalbuterol (Xopenex Neb) 0.63 mg Q2H RESP THERAPY PRN HHN WHEEZING AND SOB; Start 04/21/19 at 14:00 Diagnostic Test (Pha) (Accu-Chek) 1 ea 02 XX ; Start 04/22/19 at 02:00 Insulin Aspart (Novolog Insulin Pen) NOVOLOG *MILD* ALGORITHM Q6 SC ; Start 04/21 at 18:00 Pantoprazole (Protonix Iv) 40 mg BID@06,18 IV ; Start 04/21/19 at 18:00 Miscellaneous Information 1 ea NOTE XX ; Start 04/21/19 at 14:00 Glucose (Glutose) 15 gm Q15M PRN PO DECREASED GLUCOSE; Start 04/21/19 at 14:00 Glucose (Glutose) 22.5 gm Q15M PRN PO DECREASED GLUCOSE; Start 04/21/19 at 14:00 Dextrose (D50w Syringe) 25 ml Q15M PRN IV DECREASED GLUCOSE; Start 04/21/19 at 14:00 Dextrose (D50w Syringe) 50 ml Q15M PRN IV DECREASED GLUCOSE; Start 04/21/19 at 14:00 Glucagon (Glucagen) 1 mg Q15M PRN IM DECREASED GLUCOSE; Start 04/21/19 at 14:00 Glucose (Glutose) 15 gm Q15M PRN BUCCAL DECREASED GLUCOSE; Start 04/21/19 at 14:00 Vancomycin HCl 1.25 gm/Sodium Chloride 250 ml @ 83.333 mls/ hr NOW IVPB ; Start 04/21/19 at 15:30; Stop 04/21/19 at 18:29 Vancomycin HCl 250 ml @ 125 mls/hr Q18H IVPB ; Start 04/22/19 at 09:00 Sodium Hypochlorite (Dakins Diluted (40)) 1 applic DAILY TP ; Start 04/21/19 at 16:00 Collagenase (Santyl) 1 applic DAILY TOP ; Start 04/21/19 at 16:00 Collagenase (Santyl) 1 applic PRN PRN TOP PER WND CARE ORDERS-SACRUM; Start 04/21/19 at 14:30 DWIGHT POOLE Apr 21, 2019 15:52
--- NOTE | 2019-04-21 15:57 | HP ---
Date/Time of Note Date/Time of Note DATE: 04/21/19 TIME: 15:53 Assessment/Plan VTE [place]axis [place] [facility] [place]: 7 [place] [facility] [place] SCD contraindicated: other Pharmacological prophylaxis: other Pharm contraindication: other Lines/Catheters IV Catheter Type (from [facility]): Mid Line Urinary Cath still in place: No Reason Cath still needed: urinary retention Assessment/Plan Assessment/Plan GI bleed - admit to ICU - GI consult notified -Continue n.p.o., IV fluids. - Possible Sepsis secondary to tracheobronchitis. - ID notified - Ventilator dependent respiratory failure. -Continue vent support and breathing treatment. - Pulmonary consult - Hypertension. Continue Norvasc and losartan. - Diabetes. Continue Lantus and sliding scale insulin in addition to metformin. - Seizure: Stable with current dose of Keppra. - Seizure precautions - Anemia, most likely anemia of chronic disease. - CVA,-Plavix on hold 2/2 gi bleed - Multiple pressure ulcers - wound care per wound care consult - offloading -air mattress -optimize nutrition. Critical care time spent is 30 minutes.Further recommendations based on clinical course. Plan of care discussed with Dr. Mera. Result Diagram: 04/21/19 1500 Results 24hrs Laboratory Tests Test 04/21/19 15:00 White Blood Count 12.3 #H Red Blood Count 3.52 L Hemoglobin 8.3 L Hematocrit 28.1 L Mean Corpuscular Volume 79.8 L Mean Corpuscular Hemoglobin 23.6 L Mean Corpuscular Hemoglobin Concent 29.5 L Red Cell Distribution Width 18.7 H Platelet Count 397 Mean Platelet Volume 10.6 H Immature Granulocytes % 2.100 H Neutrophils % 66.9 Lymphocytes % 22.2 Monocytes % 7.3 Eosinophils % 1.1 Basophils % 0.4 Nucleated Red Blood Cells % 0.0 Immature Granulocytes # 0.260 H Neutrophils # 8.2 H Lymphocytes # 2.7 Monocytes # 0.9 Eosinophils # 0.1 Basophils # 0.1 Nucleated Red Blood Cells # 0.0 Sodium Level 145 H Potassium Level 3.5 Chloride Level 107 Carbon Dioxide Level 31 Anion Gap 7 Blood Urea Nitrogen 18 Creatinine 0.36 L Est Glomerular Filtrat Rate mL/min Glucose Level 228 H Calcium Level 8.3 L HPI/ROS Admit Date/Time Admit Date/Time Apr 21, 2019 at 10:34 ROS CHIEF COMPLAINT AND HISTORY OF PRESENT ILLNESS: The patient is a 73-year-old female, a resident of [facility] unit. Patient valenzuela past history of dementia, CVA, chronic respiratory failure, hypertension, seizure disorder, and diabetes, sputum positive for acinetobacter. Patient was transferred from [place] with c/o GI bleed, reported coffee ground emesis The patient is admitted to ICU for further evaluation and management. REVIEW OF SYSTEMS: Was limited as the patient is noncommunicative. There was no reported breakthrough seizure. No reported shortness of breath, no reported GI bleed. No reported vomiting or diarrhea. No reported abdominal distention. Reported coffee ground emesis The patient is noncommunicative and does not even track. PAST MEDICAL HISTORY: As stated above. PAST SURGICAL HISTORY: The patient has tracheostomy and G-tube placement. SOCIAL HISTORY: Unknown. FAMILY HISTORY: Unknown. Subjective hx not possible: pt non-verbal PMH/Family/Social Past Medical History Medications Current Medications Dextrose/Sodium Chloride 1,000 ml @ 100 mls/hr Q10H IV Last administered on 04/21/19at 13:40; Admin Dose 100 MLS/HR; Start 04/21/19 at 13:00 Levetiracetam 100 ml @ 400 mls/hr Q12 IVPB ; Start 04/21/19 at 21:00 Vancomycin HCl (Vanco Iv Per Pharmacy) VANCOMYCIN PER PHARMACY PER PROTOCOL XX ; Start 04/21/19 at 13:00 Cefepime HCl 50 ml @ 100 mls/hr Q24H IVPB ; Start 04/21/19 at 21:00 Acetaminophen 100 ml @ 400 mls/hr Q6H PRN IVPB FEVER; Start 04/21/19 at 13:00; Stop 04/22/19 at 12:59 Ondansetron HCl (Zofran Inj) 4 mg Q6H PRN IV NAUSEA AND/OR VOMITING; Start 04/21/19 at 13:00 Levalbuterol (Xopenex Neb) 0.63 mg Q2H RESP THERAPY PRN HHN WHEEZING AND SOB; Start 04/21/19 at 14:00 Diagnostic Test (Pha) (Accu-Chek) 1 ea XX ; Start 04/22/19 at 02:00 Insulin Aspart (Novolog Insulin Pen) NOVOLOG *MILD* ALGORITHM Q6 SC ; Start 04/21/19 at 18:00 Pantoprazole (Protonix Iv) 40 mg BID@06,18 IV ; Start 04/21/19 at 18:00 Miscellaneous Information 1 ea NOTE XX ; Start 04/21/19 at 14:00 Glucose (Glutose) 15 gm Q15M PRN PO DECREASED GLUCOSE; Start 04/21/19 at 14:00 Glucose (Glutose) 22.5 gm Q15M PRN PO DECREASED GLUCOSE; Start 04/21/19 at 14:00 Dextrose (D50w Syringe) 25 ml Q15M PRN IV DECREASED GLUCOSE; Start 04/21/19 at 14:00 Dextrose (D50w Syringe) 50 ml Q15M PRN IV DECREASED GLUCOSE; Start 04/21/19 at 14:00 Glucagon (Glucagen) 1 mg Q15M PRN IM DECREASED GLUCOSE; Start 04/21/19 at 14:00 Glucose (Glutose) 15 gm Q15M PRN BUCCAL DECREASED GLUCOSE; Start 04/21/19 at 14:00 Vancomycin HCl 1.25 gm/Sodium Chloride 250 ml @ 83.333 mls/ hr NOW IVPB ; Start 04/21/19 at 15:30; Stop 04/21/19 at 18:29 Vancomycin HCl 250 ml @ 125 mls/hr Q18H IVPB ; Start 04/22/19 at 09:00 Sodium Hypochlorite (Dakins Diluted (1/40)) 1 applic DAILY TP ; Start 04/21/19 at 16:00 Collagenase (Santyl) 1 applic DAILY TOP ; Start 04/21/19 at 16:00 Collagenase (Santyl) 1 applic PRN PRN TOP PER WND CARE ORDERS-SACRUM; Start 04/21/19 at 14:30 Coded Allergies: levofloxacin (Unverified Allergy, Unknown, 04/01/19) Past Surgical History Past Surgical Hx: other Family History Significant Family History: no pertinent family hx Social History Smoking Status: Unknown if ever smoked Exam/Review of Systems Vital Signs Vitals Vital Signs Date Temp Pulse Resp B/P (MAP) Pulse Ox O2 O2 Flow FiO2 Time Delivery Rate 04/21/19 105 27 96 Aerosol 5.0 28 15:05 04/21/19 141/56 13:15 (84) 04/21/19 98.6 12:00 Exam Constitutional: non-verbal, frail Psych: nl mood/affect Eyes: nl lids ENMT: nl external ears & nose Neck: other (TRACH INTACT) Respiratory: diminished breath sounds Cardiovascular: nl pulses, other (s1s2) Gastrointestinal: soft, other (gt intact) Musculoskeletal: muscle weakness, range of motion Extremities: edema (trace BLE) Neurological: unresponsive Skin: other DWIGHT POOLE Apr 21, 2019 15:57
[2019-04-21] MEDS ORDERED: PANTOPRAZOLE IV 80 MG in SOD CHLORIDE 0.9% 100 ML IV SCH (18:00)
[2019-04-21] MEDS: PANTOPRAZOLE 40 MG INJ IV SCH (18:18)
[2019-04-21] MEDS: INSULIN ASPART [NOVOLOG] 3 ML PEN SC SCH (18:28)
[2019-04-21] MEDS: COLLAGENASE 5 GM (UD JAR) TOP SCH (18:30)
[2019-04-21] MEDS: DAKINS 0.0125%(1/40) 473 ML SOLUTION TP SCH (18:30)
[2019-04-21] MEDS: CEFEPIME 1GM/50 ML (PMX) 50 ML IVPB SCH (22:13)
[2019-04-21] MEDS: LEVETIRACETAM 500 MG (PMX) 100 ML IVPB SCH (22:13)
[2019-04-22] VITALS (23 sets, daily range): BP systolic 115–164; BP diastolic 47–66; PULSE 88–116; RESP 17–35
[2019-04-22] MEDS: INSULIN ASPART [NOVOLOG] 3 ML PEN SC SCH ×4 (00:09→17:54)
[2019-04-22] MEDS: ACCU-CHEK XX SCH (02:00)
[2019-04-22] MEDS: DEXTROSE 5%-0.45% NACL 1,000 ML IV SCH ×3 (02:25→14:48)
[2019-04-22] MEDS: PANTOPRAZOLE 40 MG INJ IV SCH ×2 (05:26→17:48)
[2019-04-22] MEDS: LEVETIRACETAM 500 MG (PMX) 100 ML IVPB SCH ×2 (08:53→21:19)
[2019-04-22] MEDS: VANCOMYCIN 1 GM 250 ML IVPB SCH (08:53)
[2019-04-22] MEDS: DAKINS 0.0125%(1/40) 473 ML SOLUTION TP SCH (08:54)
--- NOTE | 2019-04-22 09:07 | CONS ---
Assessment/Plan Assessment/Plan Assessment/Plan (Daily) Chest x-ray showing minimal right midlung field platelike atelectasis. Assessment recommendations; 1. Patient with history of chronic encephalopathy and respiratory failure maintained on T-piece admitted for Anemia with possibly GI bleed. Currently no active bleeding seen. 2. History of sacral ulcer which is unstageable as well as possibly pneumonia, currently on appropriate antimicrobial regimen. 3. History of seizures 4. Diabetes and hypertension Continue current supportive care. Further recommendations per gastroneurologist. Consultation Date/Type/Reason Admit Date/Time Apr 21, 2019 at 10:34 Date of Consultation: Apr 22, 2019 Type of Consult Pulmonary/critical care Patient is a 73-year-old lady who was transferred over from [facility] after the patient developed anemia. Patient also has been diagnosed with sepsis from sacral decubitus ulcer and possibly pneumonia. Patient has advanced encephalopa thy and was noncommunicative. Patient did not appear to be in any distress. On T-piece. Past medical history; #1.History of encephalopathy #2 recurrent anemia #3 hypertension #4 diabetes #5 seizure disorder #6 history of tracheostomy and G-tube placement Medications; reviewed Allergies; Levaquin Family history, social history, occupational history is not available. Review of system; unable to be obtained. General exam; elderly woman, on T-piece via tracheostomy awake but noncommunicative currently in no distress. Date/Time of Note DATE: 04/22/19 TIME: 09:03 Past Medical History Home Meds Reported Medications Ascorbic Acid (Vitamin C) 500 Mg Tab, 500 MG GTB BID, TAB 04/01/19 Cran/Vitc/Mannose/Inulin/Brom (Uti-Stat Liquid) 3,875 Mg/30 Ml Liquid, 30 ML GTB BID 04/01/19 Acetaminophen* (Tylenol*) 325 Mg Tablet, 650 MG GTB NEEDED PRN for TRACH TUBE CHANGE, TAB 04/01/19 Amino Acids/Protein Hydrolys (PRO-STAT LIQUID) 30 Ml Liquid.pkt, 30 ML GTB BID SUGAR FREE 04/01/19 Prednisone* (Prednisone*) 20 Mg Tab, 20 MG GTB DAILY, TAB 04/01/19 Potassium Chloride* (Potassium Chloride*) 20 Meq/15 Ml Liquid, 22.5 ML GTB DAILY, ML 04/01/19 Hydrocodone/Acetaminophen ([place] 5-325 Tablet) 1 Each Tablet, 1 EACH GTB BID, TAB 04/01/19 Losartan Potassium* (Losartan Potassium*) 100 Mg Tablet, 100 MG GTB DAILY, TAB HOLD IF SBP<110 OR HR<60 04/01/19 Levetiracetam* (Keppra* (Ped)) 100 Mg/Ml Liq, 5 ML GTB BID for 30 Days, BOTTLE 04/01/19 Metformin Hcl* (Metformin Hcl*) 500 Mg Tablet, 500 MG GTB WITH BREAKFAST DINNE, #60 TAB 04/01/19 Ferrous Sulfate* (Ferrous Sulfate*) 220 Mg/5 Ml Solution, 7.5 ML GTB DAILY, ML 04/01/19 Cranberry Extract (Cranberry) 425 Mg Capsule, 425 MG GTB BID, CAP 04/01/19 Docusate Sodium* (Colace*) 100 Mg Capsule, 100 MG GTB QHS, #30 CAP 04/01/19 Clopidogrel Bisulfate* (Clopidogrel Bisulfate*) 75 Mg Tablet, 75 MG GTB DAILY, #30 TAB 04/01/19 Loratadine* (Loratadine*) 10 Mg Tablet, 10 MG GTB DAILY, #30 TAB 04/01/19 Chlorhexidine Gluconate (Peridex) 473 Ml Mouthwash, 15 ML MM Q12H, BOTTLE 04/01/19 Insulin Glargine,Hum.rec.anlog (Basaglar Kwikpen U-100) 100 Unit/1 Ml Insuln.pen, 63 UNIT SC Q12H, EA 04/01/19 Amlodipine Besylate* (Amlodipine Besylate*) 10 Mg Tablet, 10 MG GTB DAILY, #30 TAB HOLD FOR SBP <110 OR HR<60 04/01/19 Albuterol Sulfate* (Albuterol Sulfate* Neb) 0.083%-3 Ml Neb, 2.5 MG NEB Q3H PRN for WHEEZING AND SOB, #30 VIAL 04/01/19 Medications Current Medications Dextrose/Sodium Chloride 1,000 ml @ 100 mls/hr Q10H IV Last administered on 04/22/19at 02:25; Admin Dose 100 MLS/HR; Start 04/21/19 at 13:00 Levetiracetam 100 ml @ 400 mls/hr Q12 IVPB Last administered on 04/22/19at 08:53; Admin Dose 400 MLS/HR; Start 04/21/19 at 21:00 Vancomycin HCl (Vanco Iv Per Pharmacy) VANCOMYCIN PER PHARMACY PER PROTOCOL XX ; Start 04/21/19 at 13:00 Cefepime HCl 50 ml @ 100 mls/hr Q24H IVPB Last administered on 04/21/19at 22:13; Admin Dose 100 MLS/HR; Start 04/21/19 at 21:00 Acetaminophen 100 ml @ 400 mls/hr Q6H PRN IVPB FEVER; Start 04/21/19 at 13:00; Stop 04/22/19 at 12:59 Ondansetron HCl (Zofran Inj) 4 mg Q6H PRN IV NAUSEA AND/OR VOMITING; Start 04/21/19 at 13:00 Levalbuterol (Xopenex Neb) 0.63 mg Q2H RESP THERAPY PRN HHN WHEEZING AND SOB; Start 04/21/19 at 14:00 Diagnostic Test (Pha) (Accu-Chek) 1 ea 02 XX ; Start 04/22/19 at 02:00 Insulin Aspart (Novolog Insulin Pen) NOVOLOG *MILD* ALGORITHM Q6 SC Last administered on 04/22/19at 06:18; Admin Dose 1 UNIT; Start 04/21/19 at 18:00 Pantoprazole (Protonix Iv) 40 mg BID@06,18 IV Last administered on 04/22/19at 05:26; Admin Dose 40 MG; Start 04/21/19 at 18:00 Miscellaneous Information 1 ea NOTE XX ; Start 04/21/19 at 14:00 Glucose (Glutose) 15 gm Q15M PRN PO DECREASED GLUCOSE; Start 04/21/19 at 14:00 Glucose (Glutose) 22.5 gm Q15M PRN PO DECREASED GLUCOSE; Start 04/21/19 at 14:00 Dextrose (D50w Syringe) 25 ml Q15M PRN IV DECREASED GLUCOSE; Start 04/21/19 at 14:00 Dextrose (D50w Syringe) 50 ml Q15M PRN IV DECREASED GLUCOSE; Start 04/21/19 at 14:00 Glucagon (Glucagen) 1 mg Q15M PRN IM DECREASED GLUCOSE; Start 04/21/19 at 14:00 Glucose (Glutose) 15 gm Q15M PRN BUCCAL DECREASED GLUCOSE; Start 04/21/19 at 14:00 Vancomycin HCl 250 ml @ 125 mls/hr Q18H IVPB Last administered on 04/22/19at 08:53; Admin Dose 125 MLS/HR; Start 04/22/19 at 09:00 Sodium Hypochlorite (Dakins Diluted (/40)) 1 applic DAILY TP Last administered on 04/22/19at 08:54; Admin Dose 1 APPLIC; Start 04/21/19 at 16:00 Collagenase (Santyl) 1 applic DAILY TOP Last administered on 04/21/19at 18:30; Admin Dose 1 APPLIC; Start 04/21/19 at 16:00 Collagenase (Santyl) 1 applic PRN PRN TOP PER WND CARE ORDERS-SACRUM; Start 04/21/19 at 14:30 Allergies: Coded Allergies: levofloxacin (Unverified Allergy, Unknown, 04/01/19) Past Surgical History Past Surgical Hx: other Social History Smoking Status: Unknown if ever smoked Exam/Review of Systems Exam Vitals Vital Signs Date Temp Pulse Resp B/P (MAP) Pulse Ox O2 O2 Flow FiO2 Time Delivery Rate 04/22/19 98.1 107 32 152/60 99 Trach 5.0 08:00 (90) Collar 04/22/19 28 05:00 Intake and Output 04/21/19 04/21/19 04/22/19 1515:00 23:00 07:00 IntakeIntake Total 150 ml 1075 ml 100 ml OutputOutput Total 250 ml 150 ml 425 ml BalanceBalance -100 ml 925 ml -325 ml Exam H EENT exam; supple neck, no JVD. No lymphadenopathy. Midline trachea. No thyromegaly. Patient has fair dentition. Tracheostomy in place. Attached to T-piece. No neck masses. Chest exam; diminished but clear breath sounds. S1-S2 audible, no murmurs. Regular rhythm. Abdomen exam; soft, no organomegaly. G-tube in place. Bowel sounds audible. Extremity exam; no peripheral edema. Patient has mild contractures. Back examination; dressing applied over sacrum. 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 Results Result Diagram: 04/22/19 0630 04/22/19 0508 Results 24hrs Laboratory Tests Test 04/21/19 15:00 04/21/19 18:17 04/21/19 18:23 04/22/19 00:05 White Blood Count 12.3 #H Red Blood Count 3.52 L Hemoglobin 8.3 L Hematocrit 28.1 L Mean Corpuscular Volume 79.8 L Mean Corpuscular 23.6 L Hemoglobin Mean Corpuscular 29.5 L Hemoglobin Concent Red Cell Distribution 18.7 H Width Platelet Count 397 Mean Platelet Volume 10.6 H Immature Granulocytes % 2.100 H Neutrophils % 66.9 Lymphocytes % 22.2 Monocytes % 7.3 Eosinophils % 1.1 Basophils % 0.4 Nucleated Red Blood 0.0 Cells % Immature Granulocytes # 0.260 H Neutrophils # 8.2 H Lymphocytes # 2.7 Monocytes # 0.9 Eosinophils # 0.1 Basophils # 0.1 Nucleated Red Blood 0.0 Cells # Sodium Level 145 H Potassium Level 3.5 Chloride Level 107 Carbon Dioxide Level 31 Anion Gap 7 Blood Urea Nitrogen 18 Creatinine 0.36 L Est Glomerular Filtrat Rate mL/min Glucose Level 228 H Calcium Level 8.3 L Bedside Glucose 206 96 228 H Test 04/22/19 02:31 04/22/19 05:08 04/22/19 06:07 04/22/19 06:09 Bedside Glucose 204 230 H 216 Sodium Level 144 Potassium Level 4.3 Chloride Level 109 Carbon Dioxide Level 28 Anion Gap 7 Blood Urea Nitrogen 13 Creatinine 0.32 L Est Glomerular Filtrat Rate mL/min Glucose Level 199 Lactic Acid Level 2.5 *H Calcium Level 8.1 L Test 04/22/19 06:30 White Blood Count 10.1 Red Blood Count 3.22 L Hemoglobin 7.7 L Hematocrit 26.2 L Mean Corpuscular Volume 81.4 L Mean Corpuscular 23.9 L Hemoglobin Mean Corpuscular 29.4 L Hemoglobin Concent Red Cell Distribution 18.6 H Width Platelet Count 390 Mean Platelet Volume 9.5 Immature Granulocytes % 2.100 H Neutrophils % 63.2 Lymphocytes % 23.6 Monocytes % 7.7 Eosinophils % 2.9 Basophils % 0.5 Nucleated Red Blood 0.0 Cells % Immature Granulocytes # 0.210 H Neutrophils # 6.4 Lymphocytes # 2.4 Monocytes # 0.8 Eosinophils # 0.3 Basophils # 0.1 Nucleated Red Blood 0.0 Cells # Medications Medication Current Medications Dextrose/Sodium Chloride 1,000 ml @ 100 mls/hr Q10H IV Last administered on 04/22/19at 02:25; Admin Dose 100 MLS/HR; Start 04/21/19 at 13:00 Levetiracetam 100 ml @ 400 mls/hr Q12 IVPB Last administered on 04/22/19at 08:53; Admin Dose 400 MLS/HR; Start 04/21/19 at 21:00 Vancomycin HCl (Vanco Iv Per Pharmacy) VANCOMYCIN PER PHARMACY PER PROTOCOL XX ; Start 04/21/19 at 13:00 Cefepime HCl 50 ml @ 100 mls/hr Q24H IVPB Last administered on 04/21/19at 22:13; Admin Dose 100 MLS/HR; Start 04/21/19 at 21:00 Acetaminophen 100 ml @ 400 mls/hr Q6H PRN IVPB FEVER; Start 04/21/19 at 13:00; Stop 04/22/19 at 12:59 Ondansetron HCl (Zofran Inj) 4 mg Q6H PRN IV NAUSEA AND/OR VOMITING; Start 04/21/19 at 13:00 Levalbuterol (Xopenex Neb) 0.63 mg Q2H RESP THERAPY PRN HHN WHEEZING AND SOB; Start 04/21/19 at 14:00 Diagnostic Test (Pha) (Accu-Chek) 1 ea 02 XX ; Start 04/22/19 at 02:00 Insulin Aspart (Novolog Insulin Pen) NOVOLOG *MILD* ALGORITHM Q6 SC Last administered on 04/22/19at 06:18; Admin Dose 1 UNIT; Start 04/21/19 at 18:00 Pantoprazole (Protonix Iv) 40 mg BID@06,18 IV Last administered on 04/22/19at 05: 26; Admin Dose 40 MG; Start 04/21/19 at 18:00 Miscellaneous Information 1 ea NOTE XX ; Start 04/21/19 at 14:00 Glucose (Glutose) 15 gm Q15M PRN PO DECREASED GLUCOSE; Start 04/21/19 at 14:00 Glucose (Glutose) 22.5 gm Q15M PRN PO DECREASED GLUCOSE; Start 04/21/19 at 14:00 Dextrose (D50w Syringe) 25 ml Q15M PRN IV DECREASED GLUCOSE; Start 04/21/19 at 14:00 Dextrose (D50w Syringe) 50 ml Q15M PRN IV DECREASED GLUCOSE; Start 04/21/19 at 14:00 Glucagon (Glucagen) 1 mg Q15M PRN IM DECREASED GLUCOSE; Start 04/21/19 at 14:00 Glucose (Glutose) 15 gm Q15M PRN BUCCAL DECREASED GLUCOSE; Start 04/21/19 at 14:00 Vancomycin HCl 250 ml @ 125 mls/hr Q18H IVPB Last administered on 04/22/19 08:53; Admin Dose 125 MLS/HR; Start 04/22/19 at 09:00 Sodium Hypochlorite (Dakins Diluted ()) 1 applic DAILY TP Last administered on 04/22/19at 08:54; Admin Dose 1 APPLIC; Start 04/21/19 at 16:00 Collagenase (Santyl) 1 applic DAILY TOP Last administered on 04/21/19at 18:30; Admin Dose 1 APPLIC; Start 04/21/19 at 16:00 Collagenase (Santyl) 1 applic PRN PRN TOP PER WND CARE ORDERS-SACRUM; Start 04/21/19 at 14:30 ADRIANA TOVAR Apr 22, 2019 09:07
--- NOTE | 2019-04-22 11:46 | CONS ---
Assessment/Plan Assessment/Plan Hospital Course (Demo Recall) IMP: 1.CHF-diastolic acute on chronic 2.SVT 3.resp failure chronic s/p trach 4.DM 5.dysphagia s/p G tube 6.GIB Recc: -ICU -Contineu abx's and f[facility]u cx [facility] BP/HR closely Consultation Date/Type/Reason Admit Date/Time Apr 21, 2019 at 10:34 Initial Consult Date 04/22/19 Type of Consult Cardiology Reason for Consultation CHF Requesting Provider: NICOLE BUCHANAN MD Date/Time of Note DATE: 04/22/19 TIME: 11:30 Exam/Review of Systems Vital Signs Vitals Vital Signs Date Temp Pulse Resp B/P (MAP) Pulse Ox O2 O2 Flow FiO2 Time Delivery Rate 04/22/19 98.1 107 32 152/60 99 Trach 5.0 08:00 (90) Collar 04/22/19 28 05:00 Intake and Output 04/21/19 04/21/19 04/22/19 1515:00 23:00 07:00 IntakeIntake Total 150 ml 1075 ml 100 ml OutputOutput Total 250 ml 150 ml 425 ml BalanceBalance -100 ml 925 ml -325 ml Exam Exam Review of Systems: CONSTITUTIONAL: No fevers, chills. PULMONARY: trached CARDIOVASCULAR: No chest pain/palpitations GASTROINTESTINAL: No nausea/vomiting. GENITOURINARY: No hematuria/dysuria. MUSCULOSKELETAL: No myagias/arthalgias. PSYCHIATRIC: The patient denies depression. NEUROLOGIC: encephalopathic Constitutional: other (encephalopathic) Psych: no complaints Head: normocephalic ENMT: mucosa pink and moist Neck: supple, jvd (9 cm water) Respiratory: diminished breath sounds (at bases/B) Cardiovascular: regular rate and rhythm Gastrointestinal: soft, non-tender Musculoskeletal: muscle weakness (mild generalized) Extremities: edema (none) Neurological: other (encephalopathic) Labs Result Diagram: 04/22/19 0630 04/22/19 0508 Results 24hrs Laboratory Tests Test 04/21/19 15:00 04/21/19 18:17 04/21/19 18:23 04/22/19 00:05 White Blood Count 12.3 #H Red Blood Count 3.52 L Hemoglobin 8.3 L Hematocrit 28.1 L Mean Corpuscular Volume 79.8 L Mean Corpuscular 23.6 L Hemoglobin Mean Corpuscular 29.5 L Hemoglobin Concent Red Cell Distribution 18.7 H Width Platelet Count 397 Mean Platelet Volume 10.6 H Immature Granulocytes % 2.100 H Neutrophils % 66.9 Lymphocytes % 22.2 Monocytes % 7.3 Eosinophils % 1.1 Basophils % 0.4 Nucleated Red Blood 0.0 Cells % Immature Granulocytes # 0.260 H Neutrophils # 8.2 H Lymphocytes # 2.7 Monocytes # 0.9 Eosinophils # 0.1 Basophils # 0.1 Nucleated Red Blood 0.0 Cells # Sodium Level 145 H Potassium Level 3.5 Chloride Level 107 Carbon Dioxide Level 31 Anion Gap 7 Blood Urea Nitrogen 18 Creatinine 0.36 L Est Glomerular Filtrat Rate mL/min Glucose Level 228 H Calcium Level 8.3 L Bedside Glucose 206 96 228 H Test 04/22/19 02:31 04/22/19 05:08 04/22/19 06:07 04/22/19 06:09 Bedside Glucose 204 230 H 216 Sodium Level 144 Potassium Level 4.3 Chloride Level 109 Carbon Dioxide Level 28 Anion Gap 7 Blood Urea Nitrogen 13 Creatinine 0.32 L Est Glomerular Filtrat Rate mL/min Glucose Level 199 Lactic Acid Level 2.5 *H Calcium Level 8.1 L Test 04/22/19 06:30 White Blood Count 10.1 Red Blood Count 3.22 L Hemoglobin 7.7 L Hematocrit 26.2 L Mean Corpuscular Volume 81.4 L Mean Corpuscular 23.9 L Hemoglobin Mean Corpuscular 29.4 L Hemoglobin Concent Red Cell Distribution 18.6 H Width Platelet Count 390 Mean Platelet Volume 9.5 Immature Granulocytes % 2.100 H Neutrophils % 63.2 Lymphocytes % 23.6 Monocytes % 7.7 Eosinophils % 2.9 Basophils % 0.5 Nucleated Red Blood 0.0 Cells % Immature Granulocytes # 0.210 H Neutrophils # 6.4 Lymphocytes # 2.4 Monocytes # 0.8 Eosinophils # 0.3 Basophils # 0.1 Nucleated Red Blood 0.0 Cells # Medications Medications Current Medications Dextrose/Sodium Chloride 1,000 ml @ 100 mls/hr Q10H IV Last administered on 04/22/19at 02:25; Admin Dose 100 MLS/HR; Start 04/21/19 at 13:00 Levetiracetam 100 ml @ 400 mls/hr Q12 IVPB Last administered on 04/22/19at 08:53; Admin Dose 400 MLS/HR; Start 04/21/19 at 21:00 Vancomycin HCl (Vanco Iv Per Pharmacy) VANCOMYCIN PER PHARMACY PER PROTOCOL XX ; Start 04/21/19 at 13:00 Cefepime HCl 50 ml @ 100 mls/hr Q24H IVPB Last administered on 04/21/19at 22:13; Admin Dose 100 MLS/HR; Start 04/21/19 at 21:00 Acetaminophen 100 ml @ 400 mls/hr Q6H PRN IVPB FEVER; Start 04/21/19 at 13:00; Stop 04/22/19 at 12:59 Ondansetron HCl (Zofran Inj) 4 mg Q6H PRN IV NAUSEA AND/OR VOMITING; Start 04/21/19 at 13:00 Levalbuterol (Xopenex Neb) 0.63 mg Q2H RESP THERAPY PRN HHN WHEEZING AND SOB; Start 04/21/19 at 14:00 Diagnostic Test (Pha) (Accu-Chek) 1 ea 02 XX ; Start 04/22/19 at 02:00 Insulin Aspart (Novolog Insulin Pen) NOVOLOG *MILD* ALGORITHM Q6 SC Last administered on 04/22/19at 06:18; Admin Dose 1 UNIT; Start 04/21/19 at 18:00 Pantoprazole (Protonix Iv) 40 mg BID@06,18 IV Last administered on 04/22/19at 05:26; Admin Dose 40 MG; Start 04/21/19 at 18:00 Miscellaneous Information 1 ea NOTE XX ; Start 04/21/19 at 14:00 Glucose (Glutose) 15 gm Q15M PRN PO DECREASED GLUCOSE; Start 04/21/19 at 14:00 Glucose (Glutose) 22.5 gm Q15M PRN PO DECREASED GLUCOSE; Start 04/21/19 at 14:00 Dextrose (D50w Syringe) 25 ml Q15M PRN IV DECREASED GLUCOSE; Start 04/21/19 at 14:00 Dextrose (D50w Syringe) 50 ml Q15M PRN IV DECREASED GLUCOSE; Start 04/21/19 at 14:00 Glucagon (Glucagen) 1 mg Q15M PRN IM DECREASED GLUCOSE; Start 04/21/19 at 14:00 Glucose (Glutose) 15 gm Q15M PRN BUCCAL DECREASED GLUCOSE; Start 04/21/19 at 14:00 Vancomycin HCl 250 ml @ 125 mls/hr Q18H IVPB Last administered on 04/22/19at 08:53; Admin Dose 125 MLS/HR; Start 04/22/19 at 09:00 Sodium Hypochlorite (Dakins Diluted ()) 1 applic DAILY TP Last administered on 04/22/19at 08:54; Admin Dose 1 APPLIC; Start 04/21/19 at 16:00 Collagenase (Santyl) 1 applic DAILY TOP Last administered on 04/21/19at 18:30; Admin Dose 1 APPLIC; Start 04/21/19 at 16:00 Collagenase (Santyl) 1 applic PRN PRN TOP PER WND CARE ORDERS-SACRUM; Start 04/21/19 at 14:30 JOSE M IRWIN Apr 22, 2019 11:44
--- NOTE | 2019-04-22 11:53 | CONS ---
Assessment/Plan Assessment/Plan Hospital Course (Demo Recall) ID PROGRESS NOTE CURRENT ABX: DAY #1 .5 => Vanco IV + Cefepime 04/22/19 0630 04/22/19 0508 HPI/HOSPITAL COURSE * 73 yo F w/PMHx HTN, DMT2, HLD, CVA, chronic encephalopathy, SZS disorder, Trach (off-Vent), Peg, respiratory failure w/tracheostomy, aspiration pneumonia, bedbound status w/multiple decubs, unstageable sacral decub who is known to Dr. Mcmullen's ID team consultants from prior admissions to [facility], and [facility] where we have been currently following. She had been treated with a full course of ABX for aspiration PNA vs VAP with MDROGNR ACBA/PSAR, in addition to polymicrobial sacral decub. She had been OFF ABX; apparently was TNS TO [place] 04/21/19 for concern GIB associated w/worsening respiratory status, tachycardia, low grade TMax 99.3, lactic acidosis, anemia -- yet with HTN readings (no evidence septic shock). For the concern of SIRS vs early sepsis, she has been initiated on empiric ABX (above). * NOTE HX SIGNIFICANT TO GIB work-up to date: * DATE OF PROCEDURE: 04/05/2019 PROCEDURE: Colonoscopy. * PREOPERATIVE Dx: The patient presenting with history of severe anemia and occult gastrointestinal bleeding, rule out colorectal neoplasm, arteriovenous malformation. * POSTOPERATIVE Dx: Most of the colon and the descending colon, transverse colon appeared normal; however, there is significant stools noted in the colon. Hence, a detailed evaluation was not possible. * 24H INTERVAL SUMMARY * No fevers, WBC normalized * Resting comfortably on Trach- T-piece, opens eyes to physical stimuli somewhat tracking DIAGNOSTIC IMAGING * 04/20/19 CXR:1. Low lung volumes with bibasilar atelectasis with new right mid lung atelectasis.2. Small bilateral pleural effusions.3. Presumed right PICC with the tip terminates in the axillary region, unchanged. * 04/06/19 2D ECHO: Conclusions: * Normal left ventricular systolic fx/cavity size/wall thickness. EF ~ 55-60 %. * Normal appearance of the mitral valve. Trace mitral regurgitation. * Normal appearance of the tricuspid valve. There is trace tricuspid regurgitation. MICRO * (-)MRSA Nares @ [facility]> [facility] screen 04/21/19 pending * 04/21/19 Urine Cx (-) 24H * 04/04/19 SACRAL WOUND NOTE: "Dirty Wound Cx": WOUND CULTURE Final Organism 1 ACINETOBACTER BAUMANNII QUANTITY 1+ Organism 2 K PNEUMO ESBL QUANTITY SCANT GROWTH Organism 3 PROTEUS MIRABILIS QUANTITY ISOLATED FROM BROTH ONLY Organism 4 METHICILLIN RESISTANT S.AUREUS QUANTITY ISOLATED FROM BROTH ONLY Organism 5 CORYNEBACTERIUM SPECIES QUANTITY 1+ Organism 6 VANCO RESISTANT ENTEROCOCCUS QUANTITY ISOLATED FROM BROTH ONLY * 04/02/19 RESP CX: RESPIRATORY CULTURE Final Organism 1 ACINETOBACTER BAUMANNII QUANTITY 2+ Organism 2 PSEUDOMONAS AERUGINOSA QUANTITY 1+ ACINETOBACTER BAUMANII IS MUTI DRUG RESISTANT ORGANISM COLISTIN: JELLY 0.25 ug/mL SUSCEPTIBLE TIGECYCLINE: JELLY 3 ug/mL A.BAUMANNI A.BAUMANNI P.AERUG M.I.C. RX M.I.C. RX M.I.C. RX --------- --- --------- --- --------- --- AMIKACIN S 8 S AZTREONAM S CEFEPIME >=64 R 4 S CEFTAZIDIME 8 S <=1 S CIPROFLOXACIN <=0.25 S 1 S GENTAMICIN <=1 S 4 S LEVOFLOXACIN <=0.12 S 4 I MEROPENEM >32 R MINOCYCLINE <=1 S TOBRAMYCIN <=1 S <=1 S TRIMETHOPRIM/SULFAMETHOXAZOLE <=20 S ...................................................... ...................................... PHYSICAL EXAMINATION: GENERAL: VSS, NAD, opens eyes, otherwise somnolent HEENT: AT, NC, anicteric, moist oral membranes NECK: Supple, (+)Trach site clean -- on T-piece without respiratory distress CHEST: Rise symmetrical - course BS HEART: Pulse RRR ABDOMEN: PEG -- site does not look infected, I applied pressure to ostomy site, no drainage, no bleeding -- there is mild moist erythema at the site, clean stoma dressing intact without drainage EXTREMITIES: Warm, dry -- no edema, (+)Bilateral heel ulcers SKIN: No rash, no diaphoresis - unstageable sacral decub == see photos ID ASSESSMENT 73 yo F w/PMHx HTN, DMT2, HLD, CVA, chronic encephalopathy, SZS disorder, Trach (off-Vent), Peg, respiratory failure w/tracheostomy, aspiration pneumonia, bedbound status w/multiple decubs, unstageable sacral decub who is known to Dr. Mcmullen's ID team consultants from prior admissions to [facility], and [facility] where we have been currently following. She had been treated with a full course of ABX for aspiration PNA vs VAP with MDROGNR ACBA/PSAR, in addition to polymicrobial sacral decub. She had been OFF ABX; apparently was TNS TO [place] 04/21/19 for concern GIB associated w/worsening respiratory status, tachycardia, low grade TMax 99.3, lactic acidosis, anemia -- yet with HTN readings (no evidence septic shock). For the concern of SIRS vs early sepsis, she has been initiated on empiric ABX (above). (-)MRSA Nares @ [place] ABX ALLERGIES: LEVAQUIN INVASIVES: PICC (RUEXT), Trach, PEG, FC CURRENT ABX: DAY # #1 .5 => Vanco IV + Cefepime ID RECOMMENDATIONS/PLAN: 1. Continue current ABX 2. Would not send surveillance cx for sputum, wound at this time. 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 3. Surgical consult for sacral wound management -debridement preferred over ABX 4. f/u on repeat MICRO [facility] pending . Consultation Date/Type/Reason Admit Date/Time Apr 21, 2019 at 10:34 Initial Consult Date 04/22/19 Date/Time of Note DATE: 04/22/19 TIME: 10:56 Exam/Review of Systems Exam Vitals Vital Signs Date Temp Pulse Resp B/P (MAP) Pulse Ox O2 O2 Flow FiO2 Time Delivery Rate 04/22/19 98.1 107 32 152/60 99 Trach 5.0 08:00 (90) Collar 04/22/19 28 05:00 Intake and Output 04/21/19 04/21/19 04/22/19 1515:00 23:00 07:00 IntakeIntake Total 150 ml 1075 ml 100 ml OutputOutput Total 250 ml 150 ml 425 ml BalanceBalance -100 ml 925 ml -325 ml Results Result Diagram: 04/22/19 0630 04/22/19 0508 Results 24hrs Laboratory Tests Test 04/21/19 15:00 04/21/19 18:17 04/21/19 18:23 04/22/19 00:05 White Blood Count 12.3 #H Red Blood Count 3.52 L Hemoglobin 8.3 L Hematocrit 28.1 L Mean Corpuscular Volume 79.8 L Mean Corpuscular 23.6 L Hemoglobin Mean Corpuscular 29.5 L Hemoglobin Concent Red Cell Distribution 18.7 H Width Platelet Count 397 Mean Platelet Volume 10.6 H Immature Granulocytes % 2.100 H Neutrophils % 66.9 Lymphocytes % 22.2 Monocytes % 7.3 Eosinophils % 1.1 Basophils % 0.4 Nucleated Red Blood 0.0 Cells % Immature Granulocytes # 0.260 H Neutrophils # 8.2 H Lymphocytes # 2.7 Monocytes # 0.9 Eosinophils # 0.1 Basophils # 0.1 Nucleated Red Blood 0.0 Cells # Sodium Level 145 H Potassium Level 3.5 Chloride Level 107 Carbon Dioxide Level 31 Anion Gap 7 Blood Urea Nitrogen 18 Creatinine 0.36 L Est Glomerular Filtrat Rate mL/min Glucose Level 228 H Calcium Level 8.3 L Bedside Glucose 206 96 228 H Test 04/22/19 02:31 04/22/19 05:08 04/22/19 06:07 04/22/19 06:09 Bedside Glucose 204 230 H 216 Sodium Level 144 Potassium Level 4.3 Chloride Level 109 Carbon Dioxide Level 28 Anion Gap 7 Blood Urea Nitrogen 13 Creatinine 0.32 L Est Glomerular Filtrat Rate mL/min Glucose Level 199 Lactic Acid Level 2.5 *H Calcium Level 8.1 L Test 04/22/19 06:30 White Blood Count 10.1 Red Blood Count 3.22 L Hemoglobin 7.7 L Hematocrit 26.2 L Mean Corpuscular Volume 81.4 L Mean Corpuscular 23.9 L Hemoglobin Mean Corpuscular 29.4 L Hemoglobin Concent Red Cell Distribution 18.6 H Width Platelet Count 390 Mean Platelet Volume 9.5 Immature Granulocytes % 2.100 H Neutrophils % 63.2 Lymphocytes % 23.6 Monocytes % 7.7 Eosinophils % 2.9 Basophils % 0.5 Nucleated Red Blood 0.0 Cells % Immature Granulocytes # 0.210 H Neutrophils # 6.4 Lymphocytes # 2.4 Monocytes # 0.8 Eosinophils # 0.3 Basophils # 0.1 Nucleated Red Blood 0.0 Cells # Medications Medication Current Medications Dextrose/Sodium Chloride 1,000 ml @ 100 mls/hr Q10H IV Last administered on 04/22/19at 02:25; Admin Dose 100 MLS/HR; Start 04/21/19 at 13:00 Levetiracetam 100 ml @ 400 mls/hr Q12 IVPB Last administered on 04/22/19at 08:53; Admin Dose 400 MLS/HR; Start 04/21/19 at 21:00 Vancomycin HCl (Vanco Iv Per Pharmacy) VANCOMYCIN PER PHARMACY PER PROTOCOL XX ; Start 04/21/19 at 13:00 Cefepime HCl 50 ml @ 100 mls/hr Q24H IVPB Last administered on 04/21/19at 22:13; Admin Dose 100 MLS/HR; Start 04/21/19 at 21:00 Acetaminophen 100 ml @ 400 mls/hr Q6H PRN IVPB FEVER; Start 04/21/19 at 13:00; Stop 04/22/19 at 12:59 Ondansetron HCl (Zofran Inj) 4 mg Q6H PRN IV NAUSEA AND/OR VOMITING; Start 04/21/19 at 13:00 Levalbuterol (Xopenex Neb) 0.63 mg Q2H RESP THERAPY PRN HHN WHEEZING AND SOB; Start 04/21/19 at 14:00 Diagnostic Test (Pha) (Accu-Chek) 1 ea 02 XX ; Start 04/22/19 at 02:00 Insulin Aspart (Novolog Insulin Pen) NOVOLOG *MILD* ALGORITHM Q6 SC Last administered on 04/22/19at 06:18; Admin Dose 1 UNIT; Start 04/21/19 at 18:00 Pantoprazole (Protonix Iv) 40 mg BID@06,18 IV Last administered on 04/22/19at 05:26; Admin Dose 40 MG; Start 04/21/19 at 18:00 Miscellaneous Information 1 ea NOTE XX ; Start 04/21/19 at 14:00 Glucose (Glutose) 15 gm Q15M PRN PO DECREASED GLUCOSE; Start 04/21/19 at 14:00 Glucose (Glutose) 22.5 gm Q15M PRN PO DECREASED GLUCOSE; Start 04/21/19 at 14:00 Dextrose (D50w Syringe) 25 ml Q15M PRN IV DECREASED GLUCOSE; Start 04/21/19 at 14:00 Dextrose (D50w Syringe) 50 ml Q15M PRN IV DECREASED GLUCOSE; Start 04/21/19 at 14:00 Glucagon (Glucagen) 1 mg Q15M PRN IM DECREASED GLUCOSE; Start 04/21/19 at 14:00 Glucose (Glutose) 15 gm Q15M PRN BUCCAL DECREASED GLUCOSE; Start 04/21/19 at 14:00 Vancomycin HCl 250 ml @ 125 mls/hr Q18H IVPB Last administered on 04/22/19at 08:53; Admin Dose 125 MLS/HR; Start 04/22/19 at 09:00 Sodium Hypochlorite (Dakins Diluted (/40)) 1 applic DAILY TP Last administered on 04/22/19at 08:54; Admin Dose 1 APPLIC; Start 04/21/19 at 16:00 Collagenase (Santyl) 1 applic DAILY TOP Last administered on 04/21/19at 18:30; Admin Dose 1 APPLIC; Start 04/21/19 at 16:00 Collagenase (Santyl) 1 applic PRN PRN TOP PER WND CARE ORDERS-SACRUM; Start 04/21/19 at 14:30 EVAN MCINTOSH NP Apr 22, 2019 11:07
[2019-04-22] MEDS: COLLAGENASE 5 GM (UD JAR) TOP SCH (14:47)
--- NOTE | 2019-04-22 17:08 | PN ---
Date/Time of Note Date/Time of Note DATE: 04/22/19 TIME: 17:03 Assessment/Plan VTE Prophylaxis Risk score (from Ns)>0 risk: 9 SCD applied (from Ns): Yes Pharmacological prophylaxis: NA/contraindicated Pharm contraindication: bleeding Lines/Catheters IV Catheter Type (from Nrs): Mid Line Central line still needed: Yes Urinary Cath still in place: Yes Reason Cath still needed: urinary retention Assessment/Plan Hospital Course Patient seen in intensive care unit, patient is lethargic, continues on cool aerosol mist via tracheostomy, elevated lactate, hemoglobin is stable, stable vital signs patient is afebrile, continued on antibiotics. Okay to transfer to telemetry floor. Will discuss with GI possible endoscopy if patient's continues to be hemodynamically stable. Assessment/Plan - GI bleed, Dr. Prieto is following in gastroenterology consultation. Continue n.p.o., IV fluids. - Possible sepsis. Continue empiric antibiotics. Follow-up on cultures. Dr. Mcmullen is following in infection disease consultation. - Tracheobronchitis versus early pneumonia - Ventilator dependent respiratory failure. Dr. De La Torre is following in pulmonology consultation - Hypertension. Continue Norvasc and losartan. - Diabetes. Continue Lantus and sliding scale insulin in addition to metformin. - Seizure disorder, continue Keppra. - Anemia multifactorial chronic disease and possible acute blood loss. - Hx of CVA, continue Plavix. - Multiple pressure ulcers continue wound care per wound care consult, offloading, air mattress, optimize nutrition. Critical care time spent is 30 minutes Further recommendations based on clinical course. Plan of care discussed with Dr. Mera. Result Diagram: 04/22/19 0630 04/22/19 0508 Results 24hrs Laboratory Tests Test 04/21/19 18:17 04/21/19 18:23 04/22/19 00:05 04/22/19 02:31 Bedside Glucose 206 96 228 H 204 Test 04/22/19 05:08 04/22/19 06:07 04/22/19 06:09 04/22/19 06:30 Sodium Level 144 Potassium Level 4.3 Chloride Level 109 Carbon Dioxide Level 28 Anion Gap 7 Blood Urea Nitrogen 13 Creatinine 0.32 L Est Glomerular Filtrat Rate mL/min Glucose Level 199 Lactic Acid Level 2.5 *H Calcium Level 8.1 L Bedside Glucose 230 H 216 White Blood Count 10.1 Red Blood Count 3.22 L Hemoglobin 7.7 L Hematocrit 26.2 L Mean Corpuscular Volume 81.4 L Mean Corpuscular 23.9 L Hemoglobin Mean Corpuscular 29.4 L Hemoglobin Concent Red Cell Distribution 18.6 H Width Platelet Count 390 Mean Platelet Volume 9.5 Immature Granulocytes % 2.100 H Neutrophils % 63.2 Lymphocytes % 23.6 Monocytes % 7.7 Eosinophils % 2.9 Basophils % 0.5 Nucleated Red Blood 0.0 Cells % Immature Granulocytes # 0.210 H Neutrophils # 6.4 Lymphocytes # 2.4 Monocytes # 0.8 Eosinophils # 0.3 Basophils # 0.1 Nucleated Red Blood 0.0 Cells # Test 04/22/19 12:44 Bedside Glucose 180 Exam/Review of Systems Exam Vitals Vital Signs Date Temp Pulse Resp B/P (MAP) Pulse Ox O2 O2 Flow FiO2 Time Delivery Rate 04/22/19 96 16:00 04/22/19 17 164/56 98 Trach 3.0 15:00 (92) Collar 04/22/19 98.1 12:00 04/22/19 28 11:20 Intake and Output 04/21/19 04/21/19 04/22/19 1515:00 23:00 07:00 IntakeIntake Total 150 ml 1075 ml 200 ml OutputOutput Total 250 ml 150 ml 425 ml BalanceBalance -100 ml 925 ml -225 ml Exam Constitutional: alert, non-verbal Respiratory: congested cough, diminished breath sounds Cardiovascular: regular rate and rhythm Gastrointestinal: soft, non-tender, other (G-tube) Musculoskeletal: nl extremities to inspection Extremities: normal pulses Neurological: confused Skin: nl turgor, other (Multiple pressure ulcers) Results Results 24hrs Laboratory Tests Test 04/21/19 18:17 04/21/19 18:23 04/22/19 00:05 04/22/19 02:31 Bedside Glucose 206 96 228 H 204 Test 04/22/19 05:08 04/22/19 06:07 04/22/19 06:09 04/22/19 06:30 Sodium Level 144 Potassium Level 4.3 Chloride Level 109 Carbon Dioxide Level 28 Anion Gap 7 Blood Urea Nitrogen 13 Creatinine 0.32 L Est Glomerular Filtrat Rate mL/min Glucose Level 199 Lactic Acid Level 2.5 *H Calcium Level 8.1 L Bedside Glucose 230 H 216 White Blood Count 10.1 Red Blood Count 3.22 L Hemoglobin 7.7 L Hematocrit 26.2 L Mean Corpuscular Volume 81.4 L Mean Corpuscular 23.9 L Hemoglobin Mean Corpuscular 29.4 L Hemoglobin Concent Red Cell Distribution 18.6 H Width Platelet Count 390 Mean Platelet Volume 9.5 Immature Granulocytes % 2.100 H Neutrophils % 63.2 Lymphocytes % 23.6 Monocytes % 7.7 Eosinophils % 2.9 Basophils % 0.5 Nucleated Red Blood 0.0 Cells % Immature Granulocytes # 0.210 H Neutrophils # 6.4 Lymphocytes # 2.4 Monocytes # 0.8 Eosinophils # 0.3 Basophils # 0.1 Nucleated Red Blood 0.0 Cells # Test 04/22/19 12:44 Bedside Glucose 180 Medications Medication Current Medications Dextrose/Sodium Chloride 1,000 ml @ 100 mls/hr Q10H IV Last administered on 04/22/19at 14:48; Admin Dose 100 MLS/HR; Start 04/21/19 at 13:00 Levetiracetam 100 ml @ 400 mls/hr Q12 IVPB Last administered on 04/22/19at 08:53; Admin Dose 400 MLS/HR; Start 04/21/19 at 21:00 Vancomycin HCl (Vanco Iv Per Pharmacy) VANCOMYCIN PER PHARMACY PER PROTOCOL XX ; Start 04/21/19 at 13:00 Cefepime HCl 50 ml @ 100 mls/hr Q24H IVPB Last administered on 04/21/19at 22:13; Admin Dose 100 MLS/HR; Start 04/21/19 at 21:00 Ondansetron HCl (Zofran Inj) 4 mg Q6H PRN IV NAUSEA AND/OR VOMITING; Start 04/21/19 at 13:00 Levalbuterol (Xopenex Neb) 0.63 mg Q2H RESP THERAPY PRN HHN WHEEZING AND SOB; Start 04/21/19 at 14:00 Diagnostic Test (Pha) (Accu-Chek) 1 02 XX ; Start 04/22/19 at 02:00 Insulin Aspart (Novolog Insulin Pen) NOVOLOG *MILD* ALGORITHM Q6 SC Last administered on 04/22/19at 12:46; Admin Dose 1 UNIT; Start 04/21/19 at 18:00 Pantoprazole (Protonix Iv) 40 mg BID@06,18 IV Last administered on 04/22/19at 05:26; Admin Dose 40 MG; Start 04/21/19 at 18:00 Miscellaneous Information 1 ea NOTE XX ; Start 04/21/19 at 14:00 Glucose (Glutose) 15 gm Q15M PRN PO DECREASED GLUCOSE; Start 04/21/19 at 14:00 Glucose (Glutose) 22.5 gm Q15M PRN PO DECREASED GLUCOSE; Start 04/21/19 at 14:00 Dextrose (D50w Syringe) 25 ml Q15M PRN IV DECREASED GLUCOSE; Start 04/21/19 at 14:00 Dextrose (D50w Syringe) 50 ml Q15M PRN IV DECREASED GLUCOSE; Start 04/21/19 at 14:00 Glucagon (Glucagen) 1 mg Q15M PRN IM DECREASED GLUCOSE; Start 04/21/19 at 14:00 Glucose (Glutose) 15 gm Q15M PRN BUCCAL DECREASED GLUCOSE; Start 04/21/19 at 14:00 Vancomycin HCl 250 ml @ 125 mls/hr Q18H IVPB Last administered on 04/22/19at 08:53; Admin Dose 125 MLS/HR; Start 04/22/19 at 09:00 Sodium Hypochlorite (Dakins Diluted (40)) 1 applic DAILY TP Last administered on 04/22/19at 08:54; Admin Dose 1 APPLIC; Start 04/21/19 at 16:00 Collagenase (Santyl) 1 applic DAILY TOP Last administered on 04/22/19at 14:47; Admin Dose 1 APPLIC; Start 04/21/19 at 16:00 Collagenase (Santyl) 1 applic PRN PRN TOP PER WND CARE ORDERS-SACRUM; Start 04/21/19 at 14:30 DWAYNE CALDERON Apr 22, 2019 17:08
[2019-04-22] MEDS: CEFEPIME 1GM/50 ML (PMX) 50 ML IVPB SCH (21:19)
[2019-04-23] VITALS (10 sets, daily range): BP systolic 136–170; BP diastolic 51–76; PULSE 78–104; RESP 18–29
--- NOTE | 2019-04-23 00:20 | PN ---
DATE: 04/21/2019 HISTORY OF PRESENT ILLNESS: The patient was seen by me on 04/21/2019 at the request of Dr. Mera. The patient is known to me, who is a 73-year-old female transferred from [facility] intensive care unit of [facility] because of hypotension, sepsis and possible ble eding from the gastrostomy site. PHYSICAL EXAMINATION: VITAL SIGNS: When I examined in the intensive care unit on 04/21/2019, pulse 104, respirations 26, b lood pressure 126/45, status post tracheostomy, temperature 97.2. CARDIOVASCULAR: Normal heart sounds. RESPIRATORY: Normal breath, status post tracheostomy. ABDOMEN: Showed evidence of gastrostomy site in place. No active bleeding noted. Some purulent exu date noted around the gastrostomy site. LABORATORY WORKUP: As of 04/21/2019, WBC count 12,300, hemoglobin 8.3, platelet 397. Potassium is 4 .3, sodium 144. CLINICAL IMPRESSION: The patient was transferred because of probably sepsis. No evidence of acute g astrointestinal bleeding. Gastrostomy site showed no bleeding. Gastrostomy site infection needs to be excluded. PLAN: At this time, continue present management. Continue Protonix. I will be happy to follow this patient along with you. Dictated By: MONIKA RODRIGUEZ/NTS Conf#: [id number] DID#: [id number] CC: NICOLE MERA MD;*EndCC*
--- NOTE | 2019-04-23 00:20 | PN ---
DATE: 04/22/2019 PHYSICAL EXAMINATION: GENERAL: The patient seems to be alert at this time, not in distress. VITAL SIGNS: Temperature is 99.2, pulse is 106, blood pressure 148/55. CARDIOVASCULAR: Normal heart sounds. RESPIRATORY: Normal breath status post tracheostomy. ABDOMEN: Showed evidence of some minimal purulent material around the gastrostomy site. No active b leeding noted. She is having green stools at this time. LABORATORY WORKUP: Hemoglobin has dropped down to 7.7 from 8.3, WBC count 10,100. DIAGNOSTIC DATA: Chest x-ray shows evidence of bilateral pleural effusion, new right mid lung atelec tasis. CLINICAL IMPRESSION: The patient is dropping hemoglobin. She could have a gastrostomy site ulcer di sease. She probably has some gastrostomy site infection. PLAN: At this time, I recommend to send culture from the gastrostomy site for pathogens. Meanwhile, continue present management. I request to transfuse 1 unit of packed cells if hemoglobin is less th an 7.5. She may need upper endoscopy. Dictated By: MONIKA RODRIGUEZ/ERENDIRA Conf#: [id number] DID#: [id number] CC: NICOLE BUCHANAN MD;*EndCC*
[2019-04-23] MEDS: INSULIN ASPART [NOVOLOG] 3 ML PEN SC SCH ×4 (00:57→17:31)
[2019-04-23] MEDS: DEXTROSE 5%-0.45% NACL 1,000 ML IV SCH ×2 (00:59→14:36)
[2019-04-23] MEDS: ACCU-CHEK XX SCH (02:00)
[2019-04-23] MEDS: VANCOMYCIN 1 GM 250 ML IVPB SCH (03:50)
[2019-04-23] MEDS: PANTOPRAZOLE 40 MG INJ IV SCH ×2 (06:06→17:03)
[2019-04-23] MEDS: POTASSIUM CHLORIDE 100 ML IVPB SCH ×4 (07:42→17:03)
[2019-04-23] MEDS: DAKINS 0.0125%(1/40) 473 ML SOLUTION TP SCH (08:55)
[2019-04-23] MEDS: LEVETIRACETAM 500 MG (PMX) 100 ML IVPB SCH ×2 (08:56→21:31)
[2019-04-23] MEDS: COLLAGENASE 5 GM (UD JAR) TOP SCH (08:56)
--- NOTE | 2019-04-23 12:08 | CONS ---
Consultation Date/Type/Reason Admit Date/Time Apr 21, 2019 at 10:34 Initial Consult Date 04/22/19 Type of Consult Pulmonary/critical care Patient is a 73-year-old lady who was transferred over from [facility] after the patient developed anemia. Patient also has been diagnosed with sepsis from sacral decubitus ulcer and possibly pneumonia. Patient has advanced encephalopathy and was noncommunicative. Patient did not appear to be in any distress. On T-piece. Past medical history; #1.History of encephalopathy #2 recurrent anemia #3 hypertension #4 diabetes #5 seizure disorder #6 history of tracheostomy and G-tube placement Medications; reviewed Allergies; Levaquin Family history, social history, occupational history is not available. Review of system; unable to be obtained. General exam; elderly woman, on T-piece via tracheostomy awake but noncommunicative currently in no distress. Requesting Provider: NICOLE BUCHANAN MD Date/Time of Note DATE: 04/23/19 TIME: 12:07 24 HR Interval Summary Free Text/Dictation Patient's condition is stable. Has remained hemodynamically stable. General exam; elderly woman, on T-piece via tracheostomy, awake but noncommunicative. Currently in no distress. H ENT exam; supple neck, no JVD. No lymphadenopathy. Midline trachea. No thyromegaly. Patient has fair dentition. Tracheostomy in place. Chest exam; diminished but clear breath sounds. No added sounds. S1-S2 audible, no murmurs. Regular rhythm. Abdomen exam; soft, G-tube in place. No organomegaly. Bowel sounds are audible. Extremity exam; no peripheral edema. Back examination; dressing applied over sacrum. Extremity exam; no peripheral edema. CAT HOOKER exam; patient remains awake but noncommunicative. Assessment and recommendations; 1. Patient with history of dementia and chronic respiratory failure maintained on T-piece admitted for sepsis due to pneumonia and sacral ulcers. Currently on appropriate antimicrobial regimen. 2. History of diabetes, hypertension and stable seizure disorder. Continue current supportive care. Antibiotics per ID recommendations. Patient is stable from a pulmonary perspective. Exam/Review of Systems Exam Vitals Vital Signs Date Temp Pulse Resp B/P (MAP) Pulse Ox O2 O2 Flow FiO2 Time Delivery Rate 04/23/19 98.6 103 20 168/73 98 11:47 (104) 04/23/19 5.0 28 10:08 04/23/19 Trach 03:21 Collar Intake and Output 04/22/19 04/22/19 04/23/19 1515:00 23:00 07:00 IntakeIntake Total 850 ml 850 ml 950 ml OutputOutput Total 550 ml 470 ml 800 ml BalanceBalance 300 ml 380 ml 150 ml Results Result Diagram: 04/23/19 0613 04/23/19 0613 Results 24hrs Laboratory Tests Test 04/22/19 12:44 04/22/19 17:47 04/23/19 00:52 04/23/19 06:04 Bedside Glucose 180 196 204 210 Test 04/23/19 06:13 04/23/19 11:22 White Blood Count 9.0 Red Blood Count 3.25 L Hemoglobin 7.8 L Hematocrit 25.9 L Mean Corpuscular Volume 79.7 L Mean Corpuscular 24.0 L Hemoglobin Mean Corpuscular 30.1 L Hemoglobin Concent Red Cell Distribution 18.1 H Width Platelet Count 388 Mean Platelet Volume 10.2 Immature Granulocytes % 2.100 H Neutrophils % 62.0 Lymphocytes % 25.4 Monocytes % 6.7 Eosinophils % 3.2 Basophils % 0.6 Nucleated Red Blood 0.0 Cells % Immature Granulocytes # 0.190 H Neutrophils # 5.6 Lymphocytes # 2.3 Monocytes # 0.6 Eosinophils # 0.3 Basophils # 0.1 Nucleated Red Blood 0.0 Cells # Sodium Level 143 Potassium Level 2.8 *L Chloride Level 108 Carbon Dioxide Level 28 Anion Gap 7 Blood Urea Nitrogen 5 L Creatinine 0.37 L Est Glomerular Filtrat Rate mL/min Glucose Level 193 Lactic Acid Level 1.7 Calcium Level 8.4 Bedside Glucose 165 Medications Medication Current Medications Dextrose/Sodium Chloride 1,000 ml @ 100 mls/hr Q10H IV Last administered on 04/23/19at 00:59; Admin Dose 100 MLS/HR; Start 04/21/19 at 13:00 Levetiracetam 100 ml @ 400 mls/hr Q12 IVPB Last administered on 04/23/19at 08:56; Admin Dose 400 MLS/HR; Start 04/21/19 at 21:00 Vancomycin HCl (Vanco Iv Per Pharmacy) VANCOMYCIN PER PHARMACY PER PROTOCOL XX ; Start 04/21/19 at 13:00 Cefepime HCl 50 ml @ 100 mls/hr Q24H IVPB Last administered on 04/22/19at 21:19; Admin Dose 100 MLS/HR; Start 04/21/19 at 21:00 Ondansetron HCl (Zofran Inj) 4 mg Q6H PRN IV NAUSEA AND/OR VOMITING; Start 04/21/19 at 13:00 Levalbuterol (Xopenex Neb) 0.63 mg Q2H RESP THERAPY PRN HHN WHEEZING AND SOB; Start 04/21/19 at 14:00 Diagnostic Test (Pha) (Accu-Chek) 1 ea 02 XX ; Start 04/22/19 at 02:00 Insulin Aspart (Novolog Insulin Pen) NOVOLOG *MILD* ALGORITHM Q6 SC Last administered on 04/23/19at 11:58; Admin Dose 1 UNIT; Start 04/21/19 at 18:00 Pantoprazole (Protonix Iv) 40 mg BID@06,18 IV Last administered on 04/23/19at 06:06; Admin Dose 40 MG; Start 04/21/19 at 18:00 Miscellaneous Information 1 ea NOTE XX ; Start 04/21/19 at 14:00 Glucose (Glutose) 15 gm Q15M PRN PO DECREASED GLUCOSE; Start 04/21/19 at 14:00 Glucose (Glutose) 22.5 gm Q15M PRN PO DECREASED GLUCOSE; Start 04/21/19 at 14:00 Dextrose (D50w Syringe) 25 ml Q15M PRN IV DECREASED GLUCOSE; Start 04/21/19 at 14:00 Dextrose (D50w Syringe) 50 ml Q15M PRN IV DECREASED GLUCOSE; Start 04/21/19 at 14:00 Glucagon (Glucagen) 1 mg Q15M PRN IM DECREASED GLUCOSE; Start 04/21/19 at 14:00 Glucose (Glutose) 15 gm Q15M PRN BUCCAL DECREASED GLUCOSE; Start 04/21/19 at 14:00 Vancomycin HCl 250 ml @ 125 mls/hr Q18H IVPB Last administered on 04/23/19at 03:50; Admin Dose 125 MLS/HR; Start 04/22/19 at 09:00 Sodium Hypochlorite (Dakins Diluted (40)) 1 applic DAILY TP Last administered on 04/23/19at 08:55; Admin Dose 1 APPLIC; Start 7/7/19 at 16:00 Collagenase (Santyl) 1 applic DAILY TOP Last administered on 04/23/19at 08:56; Admin Dose 1 APPLIC; Start 04/21/19 at 16:00 Collagenase (Santyl) 1 applic PRN PRN TOP PER WND CARE ORDERS-SACRUM; Start 04/21/19 at 14:30 Miscellaneous Information (*Rx Drug Level Order Reminder*) VANCO TR LEVEL PRIOR ... 1999 ONCE XX ; Start 04/23/19 at 20:00; Stop 04/23/19 at 20:01 Potassium Chloride 100 ml @ 50 mls/hr Q2H IVPB ; Start 04/23/19 at 16:00; Stop 04/23/19 at 19:59 ADRIANA TOVAR Apr 23, 2019 12:08
--- NOTE | 2019-04-23 12:56 | CONS ---
Consult Date/Type/Reason Admit Date/Time Apr 21, 2019 at 10:34 Initial Consult Date Requesting Provider: NICOLE BUCHANAN MD Date/Time of Note DATE: 04/23/19 TIME: 12:54 Subjective NO acute events - pt out of ICU - stable by exam - good urine output - no CP now - con't Rx - likely to go back to [facility]. BP on high side - will re-check and add rx as needed? ROS: No fever, no chills, no nausea, no vomiting, no diarrhea/constipation - per nurse Objective Vitals Vital Signs Date Temp Pulse Resp B/P (MAP) Pulse Ox O2 O2 Flow FiO2 Time Delivery Rate 04/23/19 98.6 103 20 168/73 98 11:47 (104) 04/23/19 5.0 28 10:08 04/23/19 Trach 03:21 Collar Intake and Output 04/22/19 04/22/19 04/23/19 1515:00 23:00 07:00 IntakeIntake Total 850 ml 850 ml 950 ml OutputOutput Total 550 ml 470 ml 800 ml BalanceBalance 300 ml 380 ml 150 ml Exam General: WN/WD/NAD, AOx 0 HEENT: Unicetric/atraumatic/EOMI (does not follow commands) NECK: trach Lymph: no lymphadenopathy HEART: regular with no S3, II/ systolic murmur at apex LUNGS: Coarse sounds ABD: soft, NT, ND, +BS : Intact - pEG Neuro: non focal SKIN: chronic changes EXT: trace edema Results/Medications Result Diagram: 04/23/1961204/23/19612 Results 24 hrs Laboratory Tests Test 04/22/19 17:47 04/23/19 00:52 04/23/19 06:04 04/23/19 06:13 Bedside Glucose 196 204 210 White Blood Count 9.0 Red Blood Count 3.25 L Hemoglobin 7.8 L Hematocrit 25.9 L Mean Corpuscular Volume 79.7 L Mean Corpuscular 24.0 L Hemoglobin Mean Corpuscular 30.1 L Hemoglobin Concent Red Cell Distribution 18.1 H Width Platelet Count 388 Mean Platelet Volume 10.2 Immature Granulocytes % 2.100 H Neutrophils % 62.0 Lymphocytes % 25.4 Monocytes % 6.7 Eosinophils % 3.2 Basophils % 0.6 Nucleated Red Blood 0.0 Cells % Immature Granulocytes # 0.190 H Neutrophils # 5.6 Lymphocytes # 2.3 Monocytes # 0.6 Eosinophils # 0.3 Basophils # 0.1 Nucleated Red Blood 0.0 Cells # Sodium Level 143 Potassium Level 2.8 *L Chloride Level 108 Carbon Dioxide Level 28 Anion Gap 7 Blood Urea Nitrogen 5 L Creatinine 0.37 L Est Glomerular Filtrat Rate mL/min Glucose Level 193 Lactic Acid Level 1.7 Calcium Level 8.4 Test 04/23/19 11:22 Bedside Glucose 165 Home Meds Reported Medications Ascorbic Acid (Vitamin C) 500 Mg Tab, 500 MG GTB BID, TAB 04/01/19 Cran/Vitc/Mannose/Inulin/Brom (Uti-Stat Liquid) 3,875 Mg/30 Ml Liquid, 30 ML GTB BID 04/01/19 Acetaminophen* (Tylenol*) 325 Mg Tablet, 650 MG GTB NEEDED PRN for TRACH TUBE CHANGE, TAB 04/01/19 Amino Acids/Protein Hydrolys (PRO-STAT LIQUID) 30 Ml Liquid.pkt, 30 ML GTB BID SUGAR FREE 04/01/19 Prednisone* (Prednisone*) 20 Mg Tab, 20 MG GTB DAILY, TAB 04/01/19 Potassium Chloride* (Potassium Chloride*) 20 Meq/15 Ml Liquid, 22.5 ML GTB DAILY, ML 04/01/19 Hydrocodone/Acetaminophen (Lenox 5-325 Tablet) 1 Each Tablet, 1 EACH GTB BID, TAB 04/01/19 Losartan Potassium* (Losartan Potassium*) 100 Mg Tablet, 100 MG GTB DAILY, TAB HOLD IF SBP<110 OR HR<60 04/01/19 Levetiracetam* (Keppra* (Ped)) 100 Mg/Ml Liq, 5 ML GTB BID for 30 Days, BOTTLE 04/01/19 Metformin Hcl* (Metformin Hcl*) 500 Mg Tablet, 500 MG GTB WITH BREAKFAST DINNE, #60 TAB 04/01/19 Ferrous Sulfate* (Ferrous Sulfate*) 220 Mg/5 Ml Solution, 7.5 ML GTB DAILY, ML 04/01/19 Cranberry Extract (Cranberry) 425 Mg Capsule, 425 MG GTB BID, CAP 04/01/19 Docusate Sodium* (Colace*) 100 Mg Capsule, 100 MG GTB QHS, #30 CAP 04/01/19 Clopidogrel Bisulfate* (Clopidogrel Bisulfate*) 75 Mg Tablet, 75 MG GTB DAILY, #30 TAB 04/01/19 Loratadine* (Loratadine*) 10 Mg Tablet, 10 MG GTB DAILY, #30 TAB 04/01/19 Chlorhexidine Gluconate (Peridex) 473 Ml Mouthwash, 15 ML MM Q12H, BOTTLE 04/01/19 Insulin Glargine,Hum.rec.anlog (Basaglar Kwikpen U-100) 100 Unit/1 Ml Insuln.pen, 63 UNIT SC Q12H, EA 04/01/19 Amlodipine Besylate* (Amlodipine Besylate*) 10 Mg Tablet, 10 MG GTB DAILY, #30 TAB HOLD FOR SBP <110 OR HR<60 04/01/19 Albuterol Sulfate* (Albuterol Sulfate* Neb) 0.083%-3 Ml Neb, 2.5 MG NEB Q3H PRN for WHEEZING AND SOB, #30 VIAL 04/01/19 Medications Current Medications Dextrose/Sodium Chloride 1,000 ml @ 100 mls/hr Q10H IV Last administered on 04/23/19at 00:59; Admin Dose 100 MLS/HR; Start 04/21/19 at 13:00 Levetiracetam 100 ml @ 400 mls/hr Q12 IVPB Last administered on 04/23/19at 08:56; Admin Dose 400 MLS/HR; Start 04/21/19 at 21:00 Vancomycin HCl (Vanco Iv Per Pharmacy) VANCOMYCIN PER PHARMACY PER PROTOCOL XX ; Start 04/21/19 at 13:00 Cefepime HCl 50 ml @ 100 mls/hr Q24H IVPB Last administered on 04/22/19at 21:19; Admin Dose 100 MLS/HR; Start 04/21/19 at 21:00 Ondansetron HCl (Zofran Inj) 4 mg Q6H PRN IV NAUSEA AND/OR VOMITING; Start 04/21/19 at 13:00 Levalbuterol (Xopenex Neb) 0.63 mg Q2H RESP THERAPY PRN HHN WHEEZING AND SOB; Start 04/21/19 at 14:00 Diagnostic Test (Pha) (Accu-Chek) 1 ea 02 XX ; Start 04/22/19 at 02:00 Insulin Aspart (Novolog Insulin Pen) NOVOLOG *MILD* ALGORITHM Q6 SC Last administered on 04/23/19at 11:58; Admin Dose 1 UNIT; Start 04/21/19 at 18:00 Pantoprazole (Protonix Iv) 40 mg BID@06,18 IV Last administered on 04/23/19at 06:06; Admin Dose 40 MG; Start 04/21/19 at 18:00 Miscellaneous Information 1 ea NOTE XX ; Start 04/21/19 at 14:00 Glucose (Glutose) 15 gm Q15M PRN PO DECREASED GLUCOSE; Start 04/21/19 at 14:00 Glucose (Glutose) 22.5 gm Q15M PRN PO DECREASED GLUCOSE; Start 04/21/19 at 14:00 Dextrose (D50w Syringe) 25 ml Q15M PRN IV DECREASED GLUCOSE; Start 04/21/19 at 14:00 Dextrose (D50w Syringe) 50 ml Q15M PRN IV DECREASED GLUCOSE; Start 04/21/19 at 14:00 Glucagon (Glucagen) 1 mg Q15M PRN IM DECREASED GLUCOSE; Start 04/21/19 at 14:00 Glucose (Glutose) 15 gm Q15M PRN BUCCAL DECREASED GLUCOSE; Start 04/21/19 at 14:00 Vancomycin HCl 250 ml @ 125 mls/hr Q18H IVPB Last administered on 04/23/19at 03:50; Admin Dose 125 MLS/HR; Start 04/22/19 at 09:00 Sodium Hypochlorite (Dakins Diluted ()) 1 applic DAILY TP Last administered on 04/23/19at 08:55; Admin Dose 1 APPLIC; Start 04/21/19 at 16:00 Collagenase (Santyl) 1 applic DAILY TOP Last administered on 04/23/19at 08:56; Admin Dose 1 APPLIC; Start 04/21/19 at 16:00 Collagenase (Santyl) 1 applic PRN PRN TOP PER WND CARE ORDERS-SACRUM; Start 04/21/19 at 14:30 Miscellaneous Information (*Rx Drug Level Order Reminder*) VANCO TR LEVEL PRIOR ... 1999 ONCE XX ; Start 04/23/19 at 20:00; Stop 04/23/19 at 20:01 Potassium Chloride 100 ml @ 50 mls/hr Q2H IVPB ; Start 04/23/19 at 16:00; Stop 04/23/19 at 19:59 Multivitamins (Multivitamin) 30 ml DAILY GTB ; Start 04/24/19 at 09:00 Assessment/Plan Hospital Course (Demo Recall) 1. CHF - diast HF - euvolemic by exam now. Con't to keep euvolemic. 2. Tracheobronchitis - BP better - Rx with anti-Bx. Better - con't resp Rx. 2. Respiratory failure. Continue vent support and breathing treatment. Pulmonary to follow - out of ICU now. 4. Hypertension. Continue Norvasc and losartan. As needed 5. Diabetes. Continue Lantus and sliding scale insulin in addition to metformin. Insulin PRN 7. Seizure: Stable with current dose of Keppra. NO new episodes 6. Anemia, most likely anemia of chronic disease. GI follows - eval r/o bleed. 8. CAD - no CP now - no intervention planned. 9. Low K + - replaced today/ CHEY PLATT MD Apr 23, 2019 12:56
--- NOTE | 2019-04-23 13:56 | CONS ---
Assessment/Plan Assessment/Plan Hospital Course (Demo Recall) No acute events patient is noncommunicative in no distress no fevers overnight WBC 9 neutrophils 62 BUN 5 creatinine 0.37 Microbiology: Endotracheal aspirate growing staph aureus, urine culture grew yeast Indwelling's trach, PEG, Lane Antimicrobials: Vancomycin, cefepime Physical examination: This is a chronically ill-appearing elderly woman who is noncommunicative in no distress. Head atraumatic normocephalic sclera nonicteric neck is supple chest rise symmetrical breath sounds diminished bases heart S1-S2 abdomen obese soft bowel sounds hypoactive extremities contractured without cyanosis skin patient has unstageable chronic wound on her sacrum sacrum and necrotic wounds on the feet Assessment: 1. SIRS 2. UTI vs colonized 3. Tracheobronchitis, possible pneumonia 4. Chronic respiratory failure and dysphagia 5. Multiple chronic wounds 6. History of CVA 7. Acute on chronic anemia 8. Diabetes 9. Seizure disorder Plan: Stable, continue antibiotics, f/u sputum cx Consultation Date/Type/Reason Admit Date/Time Apr 21, 2019 at 10:34 Initial Consult Date 04/22/19 Type of Consult id Requesting Provider: NICOLE BUCHANAN MD Date/Time of Note DATE: 04/23/19 TIME: 13:54 Exam/Review of Systems Exam Vitals Vital Signs Date Temp Pulse Resp B/P (MAP) Pulse Ox O2 O2 Flow FiO2 Time Delivery Rate 04/23/19 98 5.0 28 13:19 04/23/19 98.6 103 20 168/73 11:47 (104) 04/23/19 Trach 03:21 Collar Intake and Output 04/22/19 04/22/19 04/23/19 1515:00 23:00 07:00 IntakeIntake Total 850 ml 850 ml 950 ml OutputOutput Total 550 ml 470 ml 800 ml BalanceBalance 300 ml 380 ml 150 ml Results Result Diagram: 04/23/19 0613 04/23/19 0613 Results 24hrs Laboratory Tests Test 04/22/19 17:47 04/23/19 00:52 04/23/19 06:04 04/23/19 06:13 Bedside Glucose 196 204 210 White Blood Count 9.0 Red Blood Count 3.25 L Hemoglobin 7.8 L Hematocrit 25.9 L Mean Corpuscular Volume 79.7 L Mean Corpuscular 24.0 L Hemoglobin Mean Corpuscular 30.1 L Hemoglobin Concent Red Cell Distribution 18.1 H Width Platelet Count 388 Mean Platelet Volume 10.2 Immature Granulocytes % 2.100 H Neutrophils % 62.0 Lymphocytes % 25.4 Monocytes % 6.7 Eosinophils % 3.2 Basophils % 0.6 Nucleated Red Blood 0.0 Cells % Immature Granulocytes # 0.190 H Neutrophils # 5.6 Lymphocytes # 2.3 Monocytes # 0.6 Eosinophils # 0.3 Basophils # 0.1 Nucleated Red Blood 0.0 Cells # Sodium Level 143 Potassium Level 2.8 *L Chloride Level 108 Carbon Dioxide Level 28 Anion Gap 7 Blood Urea Nitrogen 5 L Creatinine 0.37 L Est Glomerular Filtrat Rate mL/min Glucose Level 193 Lactic Acid Level 1.7 Calcium Level 8.4 Test 04/23/19 11:22 Bedside Glucose 165 Medications Medication Current Medications Dextrose/Sodium Chloride 1,000 ml @ 100 mls/hr Q10H IV Last administered on 04/23/19at 00:59; Admin Dose 100 MLS/HR; Start 04/21/19 at 13:00 Levetiracetam 100 ml @ 400 mls/hr Q12 IVPB Last administered on 04/23/19at 08:56; Admin Dose 400 MLS/HR; Start 04/21/19 at 21:00 Vancomycin HCl (Vanco Iv Per Pharmacy) VANCOMYCIN PER PHARMACY PER PROTOCOL XX ; Start 04/21/19 at 13:00 Cefepime HCl 50 ml @ 100 mls/hr Q24H IVPB Last administered on 04/22/19at 21:19; Admin Dose 100 MLS/HR; Start 04/21/19 at 21:00 Ondansetron HCl (Zofran Inj) 4 mg Q6H PRN IV NAUSEA AND/OR VOMITING; Start 04/21/19 at 13:00 Levalbuterol (Xopenex Neb) 0.63 mg Q2H RESP THERAPY PRN HHN WHEEZING AND SOB; Start 04/21/19 at 14:00 Diagnostic Test (Pha) (Accu-Chek) 1 ea 02 XX ; Start 04/22/19 at 02:00 Insulin Aspart (Novolog Insulin Pen) NOVOLOG *MILD* ALGORITHM Q6 SC Last administered on 04/23/19at 11:58; Admin Dose 1 UNIT; Start 04/21/19 at 18:00 Pantoprazole (Protonix Iv) 40 mg BID@06,18 IV Last administered on 04/23/19at 06:06; Admin Dose 40 MG; Start 04/21/19 at 18:00 Miscellaneous Information 1 ea NOTE XX ; Start 04/21/19 at 14:00 Glucose (Glutose) 15 gm Q15M PRN PO DECREASED GLUCOSE; Start 04/21/19 at 14:00 Glucose (Glutose) 22.5 gm Q15M PRN PO DECREASED GLUCOSE; Start 04/21/19 at 14:00 Dextrose (D50w Syringe) 25 ml Q15M PRN IV DECREASED GLUCOSE; Start 04/21/19 at 14:00 Dextrose (D50w Syringe) 50 ml Q15M PRN IV DECREASED GLUCOSE; Start 04/21/19 at 14:00 Glucagon (Glucagen) 1 mg Q15M PRN IM DECREASED GLUCOSE; Start 04/21/19 at 14:00 Glucose (Glutose) 15 gm Q15M PRN BUCCAL DECREASED GLUCOSE; Start 04/21/19 at 14:00 Vancomycin HCl 250 ml @ 125 mls/hr Q18H IVPB Last administered on 04/23/19at 03:50; Admin Dose 125 MLS/HR; Start 04/22/19 at 09:00 Sodium Hypochlorite (Dakins Diluted ()) 1 applic DAILY TP Last administered on 04/23/19at 08:55; Admin Dose 1 APPLIC; Start 04/21/19 at 16:00 Collagenase (Santyl) 1 applic DAILY TOP Last administered on 04/23/19at 08:56; Admin Dose 1 APPLIC; Start 04/21/19 at 16:00 Collagenase (Santyl) 1 applic PRN PRN TOP PER WND CARE ORDERS-SACRUM; Start 04/21/19 at 14:30 Miscellaneous Information (*Rx Drug Level Order Reminder*) VANCO TR LEVEL PRIOR ... 1999 ONCE XX ; Start 04/23/19 at 20:00; Stop 04/23/19 at 20:01 Potassium Chloride 100 ml @ 50 mls/hr Q2H IVPB ; Start 04/23/19 at 16:00; Stop 04/23/19 at 19:59 Multivitamins (Multivitamin) 30 ml DAILY GTB ; Start 04/24/19 at 09:00 ANTHONY JOY NP Apr 23, 2019 13:56
--- NOTE | 2019-04-23 16:15 | PN ---
Date/Time of Note Date/Time of Note DATE: 04/23/19 TIME: 16:14 Assessment/Plan VTE Prophylaxis Risk score (from Ns)>0 risk: 10 SCD applied (from [facility]): Yes Pharmacological prophylaxis: NA/contraindicated Pharm contraindication: bleeding Lines/Catheters IV C[facility]ter Type (from [facility] Mid Line Central line still needed: Yes Urinary Cath still in place: Yes Reason Cath still needed: urinary retention Assessment/Plan Hospital Course Patient continues on cool aerosol mist via tracheostomy without distress, lethargic. Potassium replaced. Patient will undergo EGD tomorrow continue n.p.o. continue IV fluids with dextrose. Assessment/Plan - GI bleed, Dr. Prieto is following in gastroenterology consultation. Continue n.p.o., IV fluids. - Possible sepsis. Continue empiric antibiotics. Follow-up on cultures. Dr. Mcmullen is following in infection disease consultation. - Tracheobronchitis versus early pneumonia - Ventilator dependent respiratory failure. Dr. De La Torre is following in pulmonology consultation - Hypertension. Continue Norvasc and losartan. - Diabetes. Continue Lantus and sliding scale insulin in addition to metformin. - Seizure disorder, continue Keppra. - Anemia multifactorial chronic disease and possible acute blood loss. - Hx of CVA, continue Plavix. - Multiple pressure ulcers continue wound care per wound care consult, offloading, air mattress, optimize nutrition. Further recommendations based on clinical course. Plan of care discussed with Dr. Mera. Result Diagram: 04/23/19 0613 04/23/19 0613 Results 24hrs Laboratory Tests Test 04/22/19 17:47 04/23/19 00:52 04/23/19 06:04 04/23/19 06:13 Bedside Glucose 196 204 210 White Blood Count 9.0 Red Blood Count 3.25 L Hemoglobin 7.8 L Hematocrit 25.9 L Mean Corpuscular Volume 79.7 L Mean Corpuscular 24.0 L Hemoglobin Mean Corpuscular 30.1 L Hemoglobin Concent Red Cell Distribution 18.1 H Width Platelet Count 388 Mean Platelet Volume 10.2 Immature Granulocytes % 2.100 H Neutrophils % 62.0 Lymphocytes % 25.4 Monocytes % 6.7 Eosinophils % 3.2 Basophils % 0.6 Nucleated Red Blood 0.0 Cells % Immature Granulocytes # 0.190 H Neutrophils # 5.6 Lymphocytes # 2.3 Monocytes # 0.6 Eosinophils # 0.3 Basophils # 0.1 Nucleated Red Blood 0.0 Cells # Sodium Level 143 Potassium Level 2.8 *L Chloride Level 108 Carbon Dioxide Level 28 Anion Gap 7 Blood Urea Nitrogen 5 L Creatinine 0.37 L Est Glomerular Filtrat Rate mL/min Glucose Level 193 Lactic Acid Level 1.7 Calcium Level 8.4 Test 04/23/19 11:22 Bedside Glucose 165 Exam/Review of Systems Exam Vitals Vital Signs Date Temp Pulse Resp B/P (MAP) Pulse Ox O2 O2 Flow FiO2 Time Delivery Rate 04/23/19 98.0 78 18 153/70 98 15:59 (97) 04/23/19 5.0 28 13:19 04/23/19 Trach 03:21 Collar Intake and Output 04/22/19 04/22/19 04/23/19 1515:00 23:00 07:00 IntakeIntake Total 850 ml 850 ml 950 ml OutputOutput Total 550 ml 470 ml 800 ml BalanceBalance 300 ml 380 ml 150 ml Exam Constitutional: alert, non-verbal Respiratory: congested cough, diminished breath sounds Cardiovascular: regular rate and rhythm Gastrointestinal: soft, non-tender, other (G-tube) Musculoskeletal: nl extremities to inspection Extremities: normal pulses Neurological: confused Skin: nl turgor, other (Multiple pressure ulcers) Results Results 24hrs Laboratory Tests Test 04/22/19 17:47 04/23/19 00:52 04/23/19 06:04 04/23/19 06:13 Bedside Glucose 196 204 210 White Blood Count 9.0 Red Blood Count 3.25 L Hemoglobin 7.8 L Hematocrit 25.9 L Mean Corpuscular Volume 79.7 L Mean Corpuscular 24.0 L Hemoglobin Mean Corpuscular 30.1 L Hemoglobin Concent Red Cell Distribution 18.1 H Width Platelet Count 388 Mean Platelet Volume 10.2 Immature Granulocytes % 2.100 H Neutrophils % 62.0 Lymphocytes % 25.4 Monocytes % 6.7 Eosinophils % 3.2 Basophils % 0.6 Nucleated Red Blood 0.0 Cells % Immature Granulocytes # 0.190 H Neutrophils # 5.6 Lymphocytes # 2.3 Monocytes # 0.6 Eosinophils # 0.3 Basophils # 0.1 Nucleated Red Blood 0.0 Cells # Sodium Level 143 Potassium Level 2.8 *L Chloride Level 108 Carbon Dioxide Level 28 Anion Gap 7 Blood Urea Nitrogen 5 L Creatinine 0.37 L Est Glomerular Filtrat Rate mL/min Glucose Level 193 Lactic Acid Level 1.7 Calcium Level 8.4 Test 04/23/19 11:22 Bedside Glucose 165 Medications Medication Current Medications Dextrose/Sodium Chloride 1,000 ml @ 100 mls/hr Q10H IV Last administered on 04/23/19at 14:36; Admin Dose 100 MLS/HR; Start 04/21/19 at 13:00 Levetiracetam 100 ml @ 400 mls/hr Q12 IVPB Last administered on 04/23/19at 08:56; Admin Dose 400 MLS/HR; Start 04/21/19 at 21:00 Vancomycin HCl (Vanco Iv Per Pharmacy) VANCOMYCIN PER PHARMACY PER PROTOCOL XX ; Start 04/21/19 at 13:00 Cefepime HCl 50 ml @ 100 mls/hr Q24H IVPB Last administered on 04/22/19at 21:19; Admin Dose 100 MLS/HR; Start 04/21/19 at 21:00 Ondansetron HCl (Zofran Inj) 4 mg Q6H PRN IV NAUSEA AND/OR VOMITING; Start 04/21/19 at 13:00 Levalbuterol (Xopenex Neb) 0.63 mg Q2H RESP THERAPY PRN HHN WHEEZING AND SOB; Start 04/21/19 at 14:00 Diagnostic Test (Pha) (Accu-Chek) 1 ea 02 XX ; Start 04/22/19 at 02:00 Insulin Aspart (Novolog Insulin Pen) NOVOLOG *MILD* ALGORITHM Q6 SC Last administered on 04/23/19at 11:58; Admin Dose 1 UNIT; Start 04/21/19 at 18:00 Pantoprazole (Protonix Iv) 40 mg BID@06,18 IV Last administered on 04/23/19at 06:06; Admin Dose 40 MG; Start 04/21/19 at 18:00 Miscellaneous Information 1 ea NOTE XX ; Start 04/21/19 at 14:00 Glucose (Glutose) 15 gm Q15M PRN PO DECREASED GLUCOSE; Start 04/21/19 at 14:00 Glucose (Glutose) 22.5 gm Q15M PRN PO DECREASED GLUCOSE; Start 04/21/19 at 14:00 Dextrose (D50w Syringe) 25 ml Q15M PRN IV DECREASED GLUCOSE; Start 04/21/19 at 14:00 Dextrose (D50w Syringe) 50 ml Q15M PRN IV DECREASED GLUCOSE; Start 04/21/19 at 14:00 Glucagon (Glucagen) 1 mg Q15M PRN IM DECREASED GLUCOSE; Start 04/21/19 at 14:00 Glucose (Glutose) 15 gm Q15M PRN BUCCAL DECREASED GLUCOSE; Start 04/21/19 at 14:00 Vancomycin HCl 250 ml @ 125 mls/hr Q18H IVPB Last administered on 04/23/19at 03:50; Admin Dose 125 MLS/HR; Start 04/22/19 at 09:00 Sodium Hypochlorite (Dakins Diluted ()) 1 applic DAILY TP Last administered on 04/23/19at 08:55; Admin Dose 1 APPLIC; Start 04/21/19 at 16:00 Collagenase (Santyl) 1 applic DAILY TOP Last administered on 04/23/19at 08:56; Admin Dose 1 APPLIC; Start 04/21/19 at 16:00 Collagenase (Santyl) 1 applic PRN PRN TOP PER WND CARE ORDERS-SACRUM; Start 04/21/19 at 14:30 Miscellaneous Information (*Rx Drug Level Order Reminder*) VANCO TR LEVEL PRIOR ... 1999 ONCE XX ; Start 04/23/19 at 20:00; Stop 04/23/19 at 20:01 Potassium Chloride 100 ml @ 50 mls/hr Q2H IVPB Last administered on 04/23/19at 15:37; Admin Dose 50 MLS/HR; Start 04/23/19 at 16:00; Stop 04/23/19 at 19:59 Multivitamins (Multivitamin) 30 ml DAILY GTB ; Start 04/24/19 at 09:00 DWAYNE CALDERON Apr 23, 2019 16:15
[2019-04-23] MEDS: CEFEPIME 1GM/50 ML (PMX) 50 ML IVPB SCH (21:34)
[2019-04-24] MEDS: VANCOMYCIN 1 GM 250 ML IVPB SCH (00:16)
[2019-04-24] MEDS: INSULIN ASPART [NOVOLOG] 3 ML PEN SC SCH ×4 (00:23→17:10)
[2019-04-24] MEDS: D5W-0.45 NACL + KCL 20 MEQ 1,000 ML IV SCH ×2 (01:55→13:45)
[2019-04-24] MEDS: ACCU-CHEK XX SCH (02:00)
[2019-04-24 03:52] VITALS: BP 173/75; PULSE 95; RESP 22
[2019-04-24] MEDS: PANTOPRAZOLE 40 MG INJ IV SCH ×2 (05:29→17:15)
[2019-04-24 07:09] VITALS: BP 154/67; PULSE 95; RESP 20
[2019-04-24] MEDS: LEVETIRACETAM 500 MG (PMX) 100 ML IVPB SCH ×2 (09:01→20:28)
[2019-04-24] MEDS: COLLAGENASE 5 GM (UD JAR) TOP SCH (09:01)
[2019-04-24] MEDS: MULTIVITAMINS 30 ML CUP GTB SCH (09:01)
--- NOTE | 2019-04-24 10:33 | CONS ---
Assessment/Plan Assessment/Plan Assessment/Plan (Daily) Assessment and recommendations; 1. Patient with history of dementia and chronic respiratory failure maintained on T-piece admitted for pneumonia and sepsis with interval improvement. 2. Sacral ulcer. 3. Anemia. 4. Diabetes. 5. History of seizure disorder. Continue current supportive care. Overall prognosis is poor. Antibiotics per ID recommendations. Consultation Date/Type/Reason Admit Date/Time Apr 21, 2019 at 10:34 Initial Consult Date 04/22/19 Type of Consult Pulmonary/critical care Patient is a 73-year-old lady who was transferred over from [facility] after the patient developed anemia. Patient also has been diagnosed with sepsis from sacral decubitus ulcer and possibly pneumonia. Patient has advanced encephalopathy and was noncommunicative. Patient did not appear to be in any distress. On T-piece. Past medical history; #1.History of encephalopathy #2 recurrent anemia #3 hypertension #4 diabetes #5 seizure disorder #6 history of tracheostomy and G-tube placement Medications; reviewed Allergies; Levaquin Family history, social history, occupational history is not available. Review of system; unable to be obtained. General exam; elderly woman, on T-piece via tracheostomy awake but nonco mmunicative currently in no distress. Requesting Provider: NICOLE BUCHANAN MD Date/Time of Note DATE: 04/24/19 TIME: 10:31 24 HR Interval Summary Free Text/Dictation Patient's condition is stable. Has remained hemodynamically stable. General exam; elderly woman, on T-piece via tracheostomy, awake but noncommunicative. Currently in no distress. Exam/Review of Systems Exam Vitals Vital Signs Date Temp Pulse Resp B/P (MAP) Pulse Ox O2 O2 Flow FiO2 Time Delivery Rate 04/24/19 95 16 98 Aerosol 5.0 28 08:34 T Tube 04/24/19 99.4 154/67 07:09 (96) Intake and Output 04/23/19 04/23/19 04/24/19 1515:00 23:00 07:00 IntakeIntake Total 300 ml 1050 ml 325 ml OutputOutput Total 900 ml 1900 ml BalanceBalance 300 ml 150 ml -1575 ml Exam H ENT exam; supple neck, no JVD. No lymphadenopathy. Midline trachea. No thyromegaly. Tracheostomy in place. Attached to T-piece. Chest exam; diminished breath sounds bilaterally. S1-S2 audible, no murmurs. Regular rhythm. Abdomen exam; soft, nondistended. No organomegaly. G-tube in place. Bowel sounds audible. Extremity exam; no peripheral edema. GARAGE HELPER exam; patient remains awake but noncommunicative. Results Result Diagram: 04/23/19 0613 04/23/19 0613 Results 24hrs Laboratory Tests Test 04/23/19 11:22 04/23/19 17:03 04/23/19 20:42 04/24/19 00:19 Bedside Glucose 165 205 204 Vancomycin Level 11.4 Trough Test 04/24/19 05:28 Bedside Glucose 190 Medications Medication Current Medications Levetiracetam 100 ml @ 400 mls/hr Q12 IVPB Last administered on 04/24/19at 09:01; Admin Dose 400 MLS/HR; Start 04/21/19 at 21:00 Vancomycin HCl (Vanco Iv Per Pharmacy) VANCOMYCIN PER PHARMACY PER PROTOCOL XX ; Start 04/21/19 at 13:00 Cefepime HCl 50 ml @ 100 mls/hr Q24H IVPB Last administered on 04/23/19at 21:34; Admin Dose 100 MLS/HR; Start 04/21/19 at 21:00 Ondansetron HCl (Zofran Inj) 4 mg Q6H PRN IV NAUSEA AND/OR VOMITING; Start 04/21/19 at 13:00 Levalbuterol (Xopenex Neb) 0.63 mg Q2H RESP THERAPY PRN HHN WHEEZING AND SOB; Start 04/21/19 at 14:00 Diagnostic Test (Pha) (Accu-Chek) 1 ea 02 XX ; Start 04/22/19 at 02:00 Insulin Aspart (Novolog Insulin Pen) NOVOLOG *MILD* ALGORITHM Q6 SC Last administered on 04/24/19at 05:36; Admin Dose 1 UNIT; Start 04/21/19 at 18:00 Pantoprazole (Protonix Iv) 40 mg BID@06,18 IV Last administered on 04/24/19at 05:29; Admin Dose 40 MG; Start 04/21/19 at 18:00 Miscellaneous Information 1 ea NOTE XX ; Start 04/21/19 at 14:00 Glucose (Glutose) 15 gm Q15M PRN PO DECREASED GLUCOSE; Start 04/21/19 at 14:00 Glucose (Glutose) 22.5 gm Q15M PRN PO DECREASED GLUCOSE; Start 04/21/19 at 14:00 Dextrose (D50w Syringe) 25 ml Q15M PRN IV DECREASED GLUCOSE; Start 04/21/19 at 14:00 Dextrose (D50w Syringe) 50 ml Q15M PRN IV DECREASED GLUCOSE; Start 04/21/19 at 14:00 Glucagon (Glucagen) 1 mg Q15M PRN IM DECREASED GLUCOSE; Start 04/21/19 at 14:00 Glucose (Glutose) 15 gm Q15M PRN BUCCAL DECREASED GLUCOSE; Start 04/21/19 at 14:00 Vancomycin HCl 250 ml @ 125 mls/hr Q18H IVPB Last administered on 04/24/19at 00:16; Admin Dose 125 MLS/HR; Start 04/22/19 at 09:00 Collagenase (Santyl) 1 applic DAILY TOP Last administered on 04/24/19at 09:01; Admin Dose 1 APPLIC; Start 04/21/19 at 16:00 Collagenase (Santyl) 1 applic PRN PRN TOP PER WND CARE ORDERS-SACRUM; Start 04/21/19 at 14:30 Multivitamins (Multivitamin) 30 ml DAILY GTB Last administered on 04/24/19at 09:01; Admin Dose 30 ML; Start 04/24/19 at 09:00 Potassium Chloride/Dextrose/ Sod Cl 1,000 ml @ 70 mls/hr [id number] IV Last administered on 04/24/19at 01:55; Admin Dose 70 MLS/HR; Start 04/24/19 at 00:00 ADRIANA TOVAR Apr 24, 2019 10:33
[2019-04-24 11:36] VITALS: BP 129/60; PULSE 90; RESP 20
[2019-04-24] MEDS: VANCOMYCIN 750 MG (PMX) 250 ML IVPB SCH (13:43)
--- NOTE | 2019-04-24 14:38 | CONS ---
Assessment/Plan Assessment/Plan Hospital Course (Demo Recall) IMP: 1.CHF-diastolic acute on chronic 2.SVT- no recurrence 3.resp failure chronic s/p trach 4.DM 5.dysphagia s/p G tube 6.GIB 7. HTN-labile and uncontrolled much of the time Recc: -Now on tele -Contineu abx's and f/u cx data -Continue keppra -Start BB and follow HR/BP clsoely -replete KCL as you have done Consultation Date/Type/Reason Admit Date/Time Apr 21, 2019 at 10:34 Initial Consult Date 04/22/19 Type of Consult Cardiology Reason for Consultation SVT Requesting Provider: NICOLE BUCHANAN MD Date/Time of Note DATE: 04/24/19 TIME: 14:35 Exam/Review of Systems Vital Signs Vitals Vital Signs Date Temp Pulse Resp B/P (MAP) Pulse Ox O2 O2 Flow FiO2 Time Delivery Rate 04/24/19 92 16 99 Aerosol 5.0 28 11:42 T Tube 04/24/19 99.1 129/60 11:36 (83) Intake and Output 04/23/19 04/23/19 04/24/19 1515:00 23:00 07:00 IntakeIntake Total 300 ml 1050 ml 325 ml OutputOutput Total 900 ml 1900 ml BalanceBalance 300 ml 150 ml -1575 ml Exam Exam Review of Systems: CONSTITUTIONAL: No fevers, chills. PULMONARY: No sob CARDIOVASCULAR: No chest pain/palpitations GASTROINTESTINAL: No nausea/vomiting. GENITOURINARY: No hematuria/dysuria. MUSCULOSKELETAL: No myagias/arthalgias. PSYCHIATRIC: The patient denies depression. NEUROLOGIC: No weakness Constitutional: other (sleeping, encephalopathic) Psych: no complaints Head: normocephalic ENMT: mucosa pink and moist Neck: jvd (9 cm water), other (trached) Respiratory: diminished breath sounds (at bases/B) Cardiovascular: regular rate and rhythm Gastrointestinal: soft, non-tender, other (GT) Musculoskeletal: muscle weakness (generalized mild) Extremities: edema (trace/B) Neurological: other (encephalopathic) Labs Result Diagram: 04/23/19 0613 04/23/19 0613 Results 24hrs Laboratory Tests Test 04/23/19 17:03 04/23/19 20:42 04/24/19 00:19 04/24/19 05:28 Bedside Glucose 205 204 190 Vancomycin Level 11.4 Trough Test 04/24/19 11:39 Bedside Glucose 195 Medications Medications Current Medications Levetiracetam 100 ml @ 400 mls/hr Q12 IVPB Last administered on 04/24/19at 09:01; Admin Dose 400 MLS/HR; Start 04/21/19 at 21:00 Vancomycin HCl (Vanco Iv Per Pharmacy) VANCOMYCIN PER PHARMACY PER PROTOCOL XX ; Start 04/21/19 at 13:00 Cefepime HCl 50 ml @ 100 mls/hr Q24H IVPB Last administered on 04/23/19at 21:34; Admin Dose 100 MLS/HR; Start 04/21/19 at 21:00 Ondansetron HCl (Zofran Inj) 4 mg Q6H PRN IV NAUSEA AND/OR VOMITING; Start 04/21/19 at 13:00 Levalbuterol (Xopenex Neb) 0.63 mg Q2H RESP THERAPY PRN HHN WHEEZING AND SOB; Start 04/21/19 at 14:00 Diagnostic Test (Pha) (Accu-Chek) 1 ea 02 XX ; Start 04/22/19 at 02:00 Insulin Aspart (Novolog Insulin Pen) NOVOLOG *MILD* ALGORITHM Q6 SC Last administered on 04/24/19at 11:43; Admin Dose 2 UNIT; Start 04/21/19 at 18:00 Pantoprazole (Protonix Iv) 40 mg BID@06,18 IV Last administered on 04/24/19at 05:29; Admin Dose 40 MG; Start 04/21/19 at 18:00 Miscellaneous Information 1 ea NOTE XX ; Start 04/21/19 at 14:00 Glucose (Glutose) 15 gm Q15M PRN PO DECREASED GLUCOSE; Start 04/21/19 at 14:00 Glucose (Glutose) 22.5 gm Q15M PRN PO DECREASED GLUCOSE; Start 04/21/19 at 14:00 Dextrose (D50w Syringe) 25 ml Q15M PRN IV DECREASED GLUCOSE; Start 04/21/19 at 14:00 Dextrose (D50w Syringe) 50 ml Q15M PRN IV DECREASED GLUCOSE; Start 04/21/19 at 14:00 Glucagon (Glucagen) 1 mg Q15M PRN IM DECREASED GLUCOSE; Start 04/21/19 at 14:00 Glucose (Glutose) 15 gm Q15M PRN BUCCAL DECREASED GLUCOSE; Start 04/21/19 at 14:00 Collagenase (Santyl) 1 applic DAILY TOP Last administered on 04/24/19at 09:01; Admin Dose 1 APPLIC; Start 04/21/19 at 16:00 Collagenase (Santyl) 1 applic PRN PRN TOP PER WND CARE ORDERS-SACRUM; Start 04/21/19 at 14:30 Multivitamins (Multivitamin) 30 ml DAILY GTB Last administered on 04/24/19at 09:01; Admin Dose 30 ML; Start 04/24/19 at 09:00 Potassium Chloride/Dextrose/ Sod Cl 1,000 ml @ 70 mls/hr [id number] IV Last administered on 04/24/19at 01:55; Admin Dose 70 MLS/HR; Start 04/24/19 at 00:00 Vancomycin/Sodium Chloride 250 ml @ 125 mls/hr Q12H IVPB Last administered on 04/24/19at 13:43; Admin Dose 125 MLS/HR; Start 04/24/19 at 14:00 Miscellaneous Information (*Rx Drug Level Order Reminder*) VANCO TROUGH @ 0,100 ON... 0100 ONCE XX ; Start 04/26/19 at 01:00; Stop 04/26/19 at 01:01 JOSE M IRWIN Apr 24, 2019 14:38
--- NOTE | 2019-04-24 14:42 | CONS ---
Assessment/Plan Assessment/Plan Hospital Course (Demo Recall) No acute events patient is noncommunicative in no distress no fevers overnight Microbiology: Endotracheal aspirate growing staph aureus, urine culture grew yeast Indwelling's trach, PEG, Lane Antimicrobials: Vancomycin, cefepime Physical examination: This is a chronically ill-appearing elderly woman who is noncommunicative in no distress. Head atraumatic normocephalic sclera nonicteri c neck is supple chest rise symmetrical breath sounds diminished bases heart S1- S2 abdomen obese soft bowel sounds hypoactive extremities contractured without cyanosis skin patient has unstageable chronic wound on her sacrum sacrum and necrotic wounds on the feet Assessment: 1. SIRS 2. UTI vs colonized 3. Tracheobronchitis, possible pneumonia 4. Chronic respiratory failure and dysphagia 5. Multiple chronic wounds 6. History of CVA 7. Acute on chronic anemia 8. Diabetes 9. Seizure disorder Plan: Clinically unchanged, will repeat chest x-ray, continue present care and antibiotics for now Consultation Date/Type/Reason Admit Date/Time Apr 21, 2019 at 10:34 Initial Consult Date 04/22/19 Type of Consult id Requesting Provider: NICOLE BUCHANAN MD Date/Time of Note DATE: 04/24/19 TIME: 14:41 Exam/Review of Systems Exam Vitals Vital Signs Date Temp Pulse Resp B/P (MAP) Pulse Ox O2 O2 Flow FiO2 Time Delivery Rate 04/24/19 92 16 99 Aerosol 5.0 28 11:42 T Tube 04/24/19 99.1 129/60 11:36 (83) Intake and Output 04/23/19 04/23/19 04/24/19 1414:59 22:59 06:59 IntakeIntake Total 300 ml 1050 ml 325 ml OutputOutput Total 900 ml 1900 ml BalanceBalance 300 ml 150 ml -1575 ml Results Result Diagram: 04/23/19 0613 04/23/19 0613 Results 24hrs Laboratory Tests Test 04/23/19 17:03 04/23/19 20:42 04/24/19 00:19 04/24/19 05:28 Bedside Glucose 205 204 190 Vancomycin Level 11.4 Trough Test 04/24/19 11:39 Bedside Glucose 195 Medications Medication Current Medications Levetiracetam 100 ml @ 400 mls/hr Q12 IVPB Last administered on 04/24/19at 09:01; Admin Dose 400 MLS/HR; Start 04/21/19 at 21:00 Vancomycin HCl (Vanco Iv Per Pharmacy) VANCOMYCIN PER PHARMACY PER PROTOCOL XX ; Start 04/21/19 at 13:00 Cefepime HCl 50 ml @ 100 mls/hr Q24H IVPB Last administered on 04/23/19at 21:34; Admin Dose 100 MLS/HR; Start 04/21/19 at 21:00 Ondansetron HCl (Zofran Inj) 4 mg Q6H PRN IV NAUSEA AND/OR VOMITING; Start 04/21/19 at 13:00 Levalbuterol (Xopenex Neb) 0.63 mg Q2H RESP THERAPY PRN HHN WHEEZING AND SOB; Start 04/21/19 at 14:00 Diagnostic Test (Pha) (Accu-Chek) 1 ea 02 XX ; Start 04/22/19 at 02:00 Insulin Aspart (Novolog Insulin Pen) NOVOLOG *MILD* ALGORITHM Q6 SC Last administered on 04/24/19at 11:43; Admin Dose 2 UNIT; Start 04/21/19 at 18:00 Pantoprazole (Protonix Iv) 40 mg BID@06,18 IV Last administered on 04/24/19at 05 :29; Admin Dose 40 MG; Start 04/21/19 at 18:00 Miscellaneous Information 1 ea NOTE XX ; Start 04/21/19 at 14:00 Glucose (Glutose) 15 gm Q15M PRN PO DECREASED GLUCOSE; Start 04/21/19 at 14:00 Glucose (Glutose) 22.5 gm Q15M PRN PO DECREASED GLUCOSE; Start 04/21/19 at 14:00 Dextrose (D50w Syringe) 25 ml Q15M PRN IV DECREASED GLUCOSE; Start 04/21/19 at 14:00 Dextrose (D50w Syringe) 50 ml Q15M PRN IV DECREASED GLUCOSE; Start 04/21/19 at 14:00 Glucagon (Glucagen) 1 mg Q15M PRN IM DECREASED GLUCOSE; Start 04/21/19 at 14:00 Glucose (Glutose) 15 gm Q15M PRN BUCCAL DECREASED GLUCOSE; Start 04/21/19 at 14: 00 Collagenase (Santyl) 1 applic DAILY TOP Last administered on 04/24/19at 09:01; Admin Dose 1 APPLIC; Start 04/21/19 at 16:00 Collagenase (Santyl) 1 applic PRN PRN TOP PER WND CARE ORDERS-SACRUM; Start 04/21/19 at 14:30 Multivitamins (Multivitamin) 30 ml DAILY GTB Last administered on 04/24/19at 09: 01; Admin Dose 30 ML; Start 04/24/19 at 09:00 Potassium Chloride/Dextrose/ Sod Cl 1,000 ml @ 70 mls/hr [id number] IV Last administered on 04/24/19at 01:55; Admin Dose 70 MLS/HR; Start 04/24/19 at 00:00 Vancomycin/Sodium Chloride 250 ml @ 125 mls/hr Q12H IVPB Last administered on 04/24/19at 13:43; Admin Dose 125 MLS/HR; Start 04/24/19 at 14:00 Miscellaneous Information (*Rx Drug Level Order Reminder*) VANCO TROUGH @ 0,100 ON... 0100 ONCE XX ; Start 04/26/19 at 01:00; Stop 04/26/19 at 01:01 ANTHONY JOY NP Apr 24, 2019 14:42
[2019-04-24 14:49] VITALS: BP 163/70; PULSE 88; RESP 21
--- NOTE | 2019-04-24 17:54 | PN ---
Date/Time of Note Date/Time of Note DATE: 04/24/19 TIME: 17:52 Assessment/Plan VTE Prophylaxis Risk score (from Ns)>0 risk: 9 SCD applied (from Ns): Yes Pharmacological prophylaxis: LMWH Lines/Catheters IV Catheter Type (from Nrsg): Mid Line Central line still needed: Yes Urinary Cath still in place: Yes Reason Cath still needed: urinary retention Assessment/Plan Hospital Course No acute events overnight, patient continued on cool aerosol mist, plan for EGD tomorrow. Assessment/Plan - GI bleed, Dr. Prieto is following in gastroenterology consultation. Continue n.p.o., IV fluids. - Possible sepsis. Continue empiric antibiotics. Follow-up on cultures. Dr. Mcmullen is following in infection disease consultation. - Tracheobronchitis versus early pneumonia - Ventilator dependent respiratory failure. Dr. De La Torre is following in pulmonology consultation - Hypertension. Continue Norvasc and losartan. - Diabetes. Continue Lantus and sliding scale insulin in addition to metformin. - Seizure disorder, continue Keppra. - Anemia multifactorial chronic disease and possible acute blood loss. - Hx of CVA, continue Plavix. - Multiple pressure ulcers continue wound care per wound care consult, offloading, air mattress, optimize nutrition. Further recommendations based on clinical course. Plan of care discussed with Dr. Mera. Result Diagram: 04/23/19 0613 04/23/19 0613 Results 24hrs Laboratory Tests Test 04/23/19 20:42 04/24/19 00:19 04/24/19 05:28 04/24/19 11:39 Vancomycin Level 11.4 Trough Bedside Glucose 204 190 195 Test 04/24/19 17:06 Bedside Glucose 215 Exam/Review of Systems Exam Vitals Vital Signs Date Temp Pulse Resp B/P (MAP) Pulse Ox O2 O2 Flow FiO2 Time Delivery Rate 04/24/19 88 16 98 Aerosol 5.0 28 14:59 T Tube 04/24/19 99.1 163/70 14:49 (101) Intake and Output 04/23/19 04/23/19 04/24/19 1515:00 23:00 07:00 IntakeIntake Total 300 ml 1050 ml 325 ml OutputOutput Total 900 ml 1900 ml BalanceBalance 300 ml 150 ml -1575 ml Exam Constitutional: alert, non-verbal Respiratory: congested cough, diminished breath sounds Cardiovascular: regular rate and rhythm Gastrointestinal: soft, non-tender, other (G-tube) Musculoskeletal: nl extremities to inspection Extremities: normal pulses Neurological: confused Skin: nl turgor, other (Multiple pressure ulcers) Results Results 24hrs Laboratory Tests Test 04/23/19 20:42 04/24/19 00:19 04/24/19 05:28 04/24/19 11:39 Vancomycin Level 11.4 Trough Bedside Glucose 204 190 195 Test 04/24/19 17:06 Bedside Glucose 215 Medications Medication Current Medications Levetiracetam 100 ml @ 400 mls/hr Q12 IVPB Last administered on 04/24/19at 09: 01; Admin Dose 400 MLS/HR; Start 04/21/19 at 21:00 Vancomycin HCl (Vanco Iv Per Pharmacy) VANCOMYCIN PER PHARMACY PER PROTOCOL XX ; Start 04/21/19 at 13:00 Cefepime HCl 50 ml @ 100 mls/hr Q24H IVPB Last administered on 04/23/19at 21:34; Admin Dose 100 MLS/HR; Start 04/21/19 at 21:00 Ondansetron HCl (Zofran Inj) 4 mg Q6H PRN IV NAUSEA AND/OR VOMITING; Start 04/21/19 at 13:00 Levalbuterol (Xopenex Neb) 0.63 mg Q2H RESP THERAPY PRN HHN WHEEZING AND SOB; Start 04/21/19 at 14:00 Diagnostic Test (Pha) (Accu-Chek) 1 ea 02 XX ; Start 04/22/19 at 02:00 Insulin Aspart (Novolog Insulin Pen) NOVOLOG *MILD* ALGORITHM Q6 SC Last administered on 04/24/19at 17:10; Admin Dose 2 UNIT; Start 04/21/19 at 18:00 Pantoprazole (Protonix Iv) 40 mg BID@06,18 IV Last administered on 04/24/19at 17:15; Admin Dose 40 MG; Start 04/21/19 at 18:00 Miscellaneous Information 1 ea NOTE XX ; Start 04/21/19 at 14:00 Glucose (Glutose) 15 gm Q15M PRN PO DECREASED GLUCOSE; Start 04/21/19 at 14:00 Glucose (Glutose) 22.5 gm Q15M PRN PO DECREASED GLUCOSE; Start 04/21/19 at 14:00 Dextrose (D50w Syringe) 25 ml Q15M PRN IV DECREASED GLUCOSE; Start 04/21/19 at 14:00 Dextrose (D50w Syringe) 50 ml Q15M PRN IV DECREASED GLUCOSE; Start 04/21/19 at 14:00 Glucagon (Glucagen) 1 mg Q15M PRN IM DECREASED GLUCOSE; Start 04/21/19 at 14:00 Glucose (Glutose) 15 gm Q15M PRN BUCCAL DECREASED GLUCOSE; Start 04/21/19 at 14:00 Collagenase (Santyl) 1 applic DAILY TOP Last administered on 04/24/19at 09:01; Admin Dose 1 APPLIC; Start 04/21/19 at 16:00 Collagenase (Santyl) 1 applic PRN PRN TOP PER WND CARE ORDERS-SACRUM; Start 04/21/19 at 14:30 Multivitamins (Multivitamin) 30 ml DAILY GTB Last administered on 04/24/19at 09:01; Admin Dose 30 ML; Start 04/24/19 at 09:00 Potassium Chloride/Dextrose/ Sod Cl 1,000 ml @ 70 mls/hr [id number] IV Last admi nistered on 04/24/19at 01:55; Admin Dose 70 MLS/HR; Start 04/24/19 at 00:00 Vancomycin/Sodium Chloride 250 ml @ 125 mls/hr Q12H IVPB Last administered on 04/24/19at 13:43; Admin Dose 125 MLS/HR; Start 04/24/19 at 14:00 Miscellaneous Information (*Rx Drug Level Order Reminder*) VANCO TROUGH @ 0,100 ON... 0100 ONCE XX ; Start 04/26/19 at 01:00; Stop 04/26/19 at 01:01 DWAYNE CALDERON Apr 24, 2019 17:54
[2019-04-24 20:00] VITALS: BP 157/71; PULSE 100; RESP 20
[2019-04-24] MEDS: CEFEPIME 1GM/50 ML (PMX) 50 ML IVPB SCH (21:07)
[2019-04-24] MEDS: POTASSIUM CHLORIDE 50 ML IVPB SCH ×2 (21:49→23:08)
[2019-04-24 23:56] VITALS: BP 150/68; PULSE 94; RESP 19
[2019-04-25] VITALS (13 sets, daily range): BP systolic 128–174; BP diastolic 44–78; PULSE 74–94; RESP 18–27
[2019-04-25] MEDS: INSULIN ASPART [NOVOLOG] 3 ML PEN SC SCH ×3 (00:49→12:00)
[2019-04-25] MEDS: POTASSIUM CHLORIDE 50 ML IVPB SCH (01:27)
[2019-04-25] MEDS: ACCU-CHEK XX SCH (02:00)
[2019-04-25] MEDS: VANCOMYCIN 750 MG (PMX) 250 ML IVPB SCH (02:55)
--- NOTE | 2019-04-25 03:12 | CONS ---
DATE OF ADMISSION: 04/21/2019 DATE OF CONSULTATION: HISTORY OF PRESENT ILLNESS: The patient is unresponsive. She has got a tracheostomy connected to th e T-tube. She has had gastrostomy site bleeding. Her hemoglobin had dropped to 7.8. EXAMINATION: ABDOMEN: Soft. No bleeding noted. LABORATORY WORKUP: Hemoglobin 7.8. Chemistry: Potassium 2.8. CLINICAL IMPRESSION: 1. Gastrostomy site bleeding. 2. Hypokalemia. 3. Respiratory failure. PLAN: At this time, recommend to replace IV KCl and also recommend upper endoscopy. Dictated By: MONIKA LEO MD NC/NTS Conf#: [id number] DID#: [id number] CC: NICOLE BUCHANAN MD;*EndCC*
[2019-04-25] MEDS: PANTOPRAZOLE 40 MG INJ IV SCH (05:43)
[2019-04-25] MEDS: D5W-0.45 NACL + KCL 20 MEQ 1,000 ML IV SCH ×2 (05:44→17:19)
[2019-04-25] MEDS: COLLAGENASE 5 GM (UD JAR) TOP SCH (08:49)
[2019-04-25] MEDS: MULTIVITAMINS 30 ML CUP GTB SCH (08:49)
[2019-04-25] MEDS: LEVETIRACETAM 500 MG (PMX) 100 ML IVPB SCH ×2 (09:25→21:25)
--- NOTE | 2019-04-25 10:24 | CONS ---
Assessment/Plan Assessment/Plan Assessment/Plan (Daily) Assessment and recommendations; 1. Patient admitted with pneumonia currently on appropriate antimicrobial regimen. 2. Sacral ulcer. 3. Advanced dementia. 4. Chronic respiratory failure, doing very well on T-piece. 5. Chronic dysphagia due to encephalopathy/dementia. 6. Stable seizure disorder. 7. Anemia. 8. Diabetes. Continue current supportive care. Consultation Date/Type/Reason Admit Date/Time Apr 21, 2019 at 10:34 Initial Consult Date 04/22/19 Type of Consult Pulmonary/critical care Patient is a 73-year-old lady who was transferred over from [facility] after the patient developed anemia. Patient also has been diagnosed with sepsis from sacral decubitus ulcer and possibly pneumonia. Patient has advanced encephalopathy and was noncommunicative. Patient did not appear to be in any distress. On T-piece. Past medical history; #1.History of encephalopathy #2 recurrent anemia #3 hypertension #4 diabetes #5 seizure disorder #6 history of tracheostomy and G-tube placement Medications; reviewed Allergies; Levaquin Family history, social history, occupational history is not available. Review of system; unable to be obtained. General exam; elderly woman, on T-piece via tracheostomy awake but nonc ommunicative currently in no distress. Requesting Provider: NICOLE BUCHANAN MD Date/Time of Note DATE: 04/25/19 TIME: 10:22 24 HR Interval Summary Free Text/Dictation Patient's condition is stable. Has remained hemodynamically stable. No untoward events reported. General exam; elderly female, on T-piece via tracheostomy, noncommunicative. Currently no distress. Exam/Review of Systems Exam Vitals Vital Signs Date Temp Pulse Resp B/P (MAP) Pulse Ox O2 O2 Flow FiO2 Time Delivery Rate 04/25/19 5.0 07:57 04/25/19 98.6 89 18 163/72 97 07:49 (102) 04/25/19 T Tube 07:45 04/25/19 28 07:45 Intake and Output 04/24/19 04/24/19 04/25/19 1515:00 23:00 07:00 OutputOutput Total 1000 ml 750 ml BalanceBalance -1000 ml -750 ml Exam H ENT exam; supple neck, no JVD. No lymphadenopathy. Midline trachea. No thyromegaly. Tracheostomy in place. Attached to T-piece. Chest exam; diminished but clear breath sounds. S1-S2 audible, no murmurs. Abdomen exam; soft, no organomegaly. Nondistended. G-tube in place. Bowel sounds are audible. Extremity exam; peripheral edema. 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 Results Result Diagram: 04/25/19 0503 04/25/19 0502 Results 24hrs Laboratory Tests Test 04/24/19 11:39 04/24/19 17:06 04/24/19 19:02 04/25/19 00:39 Bedside Glucose 195 215 193 Sodium Level 142 Potassium Level 3.3 L Chloride Level 108 Carbon Dioxide Level 26 Anion Gap 8 Blood Urea Nitrogen 5 L Creatinine 0.39 L Est Glomerular Filtrat Rate mL/min Glucose Level 220 Calcium Level 8.6 Test 04/25/19 05:02 04/25/19 05:03 04/25/19 05:42 Sodium Level 143 Potassium Level 3.8 Chloride Level 107 Carbon Dioxide Level 26 Anion Gap 10 Blood Urea Nitrogen 7 Creatinine 0.32 L Est Glomerular Filtrat Rate mL/min Glucose Level 168 Calcium Level 8.8 White Blood Count 8.5 Red Blood Count 4.04 #L Hemoglobin 9.9 #L Hematocrit 32.6 #L Mean Corpuscular 80.7 L Volume Mean Corpuscular 24.5 L Hemoglobin Mean Corpuscular 30.4 L Hemoglobin Concent Red Cell 17.8 H Distribution Width Platelet Count 408 Mean Platelet Volume 10.3 Immature 4.000 H Granulocytes % Neutrophils % 52.7 Lymphocytes % 30.6 Monocytes % 7.4 Eosinophils % 4.8 Basophils % 0.5 Nucleated Red Blood 0.0 Cells % Immature 0.340 H Granulocytes # Neutrophils # 4.5 Lymphocytes # 2.6 Monocytes # 0.6 Eosinophils # 0.4 Basophils # 0.0 Nucleated Red Blood 0.0 Cells # Prothrombin Time 13.5 Prothrombin Time 1.1 Ratio INR International 1.02 Normalized Ratio Activated 25.2 Partial Thromboplast Time Thrombin Time 15.9 Bedside Glucose 181 Medications Medication Current Medications Levetiracetam 100 ml @ 400 mls/hr Q12 IVPB Last administered on 04/25/19at 09:25; Admin Dose 400 MLS/HR; Start 04/21/19 at 21:00 Vancomycin HCl (Vanco Iv Per Pharmacy) VANCOMYCIN PER PHARMACY PER PROTOCOL XX ; Start 04/21/19 at 13:00 Cefepime HCl 50 ml @ 100 mls/hr Q24H IVPB Last administered on 04/24/19at 21:07; Admin Dose 100 MLS/HR; Start 04/21/19 at 21:00 Ondansetron HCl (Zofran Inj) 4 mg Q6H PRN IV NAUSEA AND/OR VOMITING; Start 04/21/19 at 13:00 Levalbuterol (Xopenex Neb) 0.63 mg Q2H RESP THERAPY PRN HHN WHEEZING AND SOB; Start 04/21/19 at 14:00 Diagnostic Test (Pha) (Accu-Chek) 1 ea 02 XX ; Start 04/22/19 at 02:00 Insulin Aspart (Novolog Insulin Pen) NOVOLOG *MILD* ALGORITHM Q6 SC Last administered on 04/25/19at 05:56; Admin Dose 1 UNIT; Start 04/21/19 at 18:00 Pantoprazole (Protonix Iv) 40 mg BID@06,18 IV Last administered on 04/25/19at 05:43; Admin Dose 40 MG; Start 04/21/19 at 18:00 Miscellaneous Information 1 ea NOTE XX ; Start 04/21/19 at 14:00 Glucose (Glutose) 15 gm Q15M PRN PO DECREASED GLUCOSE; Start 04/21/19 at 14:00 Glucose (Glutose) 22.5 gm Q15M PRN PO DECREASED GLUCOSE; Start 04/21/19 at 14:00 Dextrose (D50w Syringe) 25 ml Q15M PRN IV DECREASED GLUCOSE; Start 04/21/19 at 14:00 Dextrose (D50w Syringe) 50 ml Q15M PRN IV DECREASED GLUCOSE; Start 04/21/19 at 14:00 Glucagon (Glucagen) 1 mg Q15M PRN IM DECREASED GLUCOSE; Start 04/21/19 at 14:00 Glucose (Glutose) 15 gm Q15M PRN BUCCAL DECREASED GLUCOSE; Start 04/21/19 at 14:00 Collagenase (Santyl) 1 applic DAILY TOP Last administered on 04/25/19at 08:49; Admin Dose 1 APPLIC; Start 04/21/19 at 16:00 Collagenase (Santyl) 1 applic PRN PRN TOP PER WND CARE ORDERS-SACRUM; Start 04/21/19 at 14:30 Multivitamins (Multivitamin) 30 ml DAILY GTB Last administered on 04/25/19at 08:49; Admin Dose 30 ML; Start 04/24/19 at 09:00 Potassium Chloride/Dextrose/ Sod Cl 1,000 ml @ 70 mls/hr [id number] IV Last administered on 04/25/19at 05:44; Admin Dose 70 MLS/HR; Start 04/24/19 at 00:00 Vancomycin/Sodium Chloride 250 ml @ 125 mls/hr Q12H IVPB Last administered on 04/25/19at 02:55; Admin Dose 125 MLS/HR; Start 04/24/19 at 14:00 Miscellaneous Information (*Rx Drug Level Order Reminder*) VANCO TROUGH @ 0,100 ON... 0100 ONCE XX ; Start 04/26/19 at 01:00; Stop 04/26/19 at 01:01 ADRIANA TOVAR Apr 25, 2019 10:24
--- NOTE | 2019-04-25 13:09 | CONS ---
Assessment/Plan Assessment/Plan Hospital Course (Demo Recall) No acute events patient is noncommunicative in no distress no fevers overnight Microbiology: Endotracheal aspirate growing staph aureus, urine culture grew yeast Indwelling's: trach, PEG Antimicrobials: Vancomycin, cefepime Physical examination: This is a chronically ill-appearing elderly woman who is noncommunicative in no distress. Head atraumatic normocephalic sclera nonicteric neck is supple chest rise symmetrical breath sounds diminished bases heart S1-S2 abdomen obese soft bowel sounds hypoactive extremities contractured without cyanosis skin patient has unstageable chronic wound on her sacrum sacrum and necrotic wounds on the feet Assessment: 1. SIRS 2. UTI vs colonized 3. Tracheobronchitis 4. Chronic respiratory failure and dysphagia 5. Multiple chronic wounds 6. History of CVA 7. Acute on chronic anemia 8. Diabetes 9. Seizure disorder 10. GT site cellulitis Plan: Clinically unchanged, change abx to Merrem and Diflucan, add topical antifungal to GT site, GI rec-s Consultation Date/Type/Reason Admit Date/Time Apr 21, 2019 at 10:34 Initial Consult Date 04/22/19 Type of Consult id Requesting Provider: NICOLE BUCHANAN MD Date/Time of Note DATE: 04/25/19 TIME: 13:06 Exam/Review of Systems Exam Vitals Vital Signs Date Temp Pulse Resp B/P (MAP) Pulse Ox O2 O2 Flow FiO2 Time Delivery Rate 04/25/19 98.4 94 18 169/78 99 11:26 (108) 04/25/19 5.0 07:57 04/25/19 T Tube 07:45 04/25/19 28 07:45 Intake and Output 04/24/19 04/24/19 04/25/19 1515:00 23:00 07:00 OutputOutput Total 1000 ml 750 ml BalanceBalance -1000 ml -750 ml Results Result Diagram: 04/25/19 0503 04/25/19 0502 Results 24hrs Laboratory Tests Test 04/24/19 17:06 04/24/19 19:02 04/25/19 00:39 04/25/19 05:02 Bedside Glucose 215 193 Sodium Level 142 143 Potassium Level 3.3 L 3.8 Chloride Level 108 107 Carbon Dioxide Level 26 26 Anion Gap 8 10 Blood Urea Nitrogen 5 L 7 Creatinine 0.39 L 0.32 L Est Glomerular Filtrat Rate mL/min Glucose Level 220 168 Calcium Level 8.6 8.8 Test 04/25/19 05:03 04/25/19 05:42 04/25/19 11:58 White Blood Count 8.5 Red Blood Count 4.04 #L Hemoglobin 9.9 #L Hematocrit 32.6 #L Mean Corpuscular 80.7 L Volume Mean Corpuscular 24.5 L Hemoglobin Mean Corpuscular 30.4 L Hemoglobin Concent Red Cell 17.8 H Distribution Width Platelet Count 408 Mean Platelet Volume 10.3 Immature 4.000 H Granulocytes % Neutrophils % 52.7 Lymphocytes % 30.6 Monocytes % 7.4 Eosinophils % 4.8 Basophils % 0.5 Nucleated Red Blood 0.0 Cells % Immature 0.340 H Granulocytes # Neutrophils # 4.5 Lymphocytes # 2.6 Monocytes # 0.6 Eosinophils # 0.4 Basophils # 0.0 Nucleated Red Blood 0.0 Cells # Prothrombin Time 13.5 Prothrombin Time 1.1 Ratio INR International 1.02 Normalized Ratio Activated 25.2 Partial Thromboplast Time Thrombin Time 15.9 Bedside Glucose 181 224 H Medications Medication Current Medications Levetiracetam 100 ml @ 400 mls/hr Q12 IVPB Last administered on 04/25/19at 09:25; Admin Dose 400 MLS/HR; Start 04/21/19 at 21:00 Vancomycin HCl (Vanco Iv Per Pharmacy) VANCOMYCIN PER PHARMACY PER PROTOCOL XX ; Start 04/21/19 at 13:00 Cefepime HCl 50 ml @ 100 mls/hr Q24H IVPB Last administered on 04/24/19at 2 1:07; Admin Dose 100 MLS/HR; Start 04/21/19 at 21:00 Ondansetron HCl (Zofran Inj) 4 mg Q6H PRN IV NAUSEA AND/OR VOMITING; Start 04/21/19 at 13:00 Levalbuterol (Xopenex Neb) 0.63 mg Q2H RESP THERAPY PRN HHN WHEEZING AND SOB; Start 04/21/19 at 14:00 Diagnostic Test (Pha) (Accu-Chek) 1 ea 02 XX ; Start 04/22/19 at 02:00 Insulin Aspart (Novolog Insulin Pen) NOVOLOG *MILD* ALGORITHM Q6 SC Last administered on 04/25/19at 12:00; Admin Dose 3 UNIT; Start 04/21/19 at 18:00 Pantoprazole (Protonix Iv) 40 mg BID@06,18 IV Last administered on 04/25/19at 05:43; Admin Dose 40 MG; Start 04/21/19 at 18:00 Miscellaneous Information 1 ea NOTE XX ; Start 04/21/19 at 14:00 Glucose (Glutose) 15 gm Q15M PRN PO DECREASED GLUCOSE; Start 04/21/19 at 14:00 Glucose (Glutose) 22.5 gm Q15M PRN PO DECREASED GLUCOSE; Start 04/21/19 at 14:00 Dextrose (D50w Syringe) 25 ml Q15M PRN IV DECREASED GLUCOSE; Start 04/21/19 at 14:00 Dextrose (D50w Syringe) 50 ml Q15M PRN IV DECREASED GLUCOSE; Start 04/21/19 at 14:00 Glucagon (Glucagen) 1 mg Q15M PRN IM DECREASED GLUCOSE; Start 04/21/19 at 14:00 Glucose (Glutose) 15 gm Q15M PRN BUCCAL DECREASED GLUCOSE; Start 04/21/19 at 14:00 Collagenase (Santyl) 1 applic DAILY TOP Last administered on 04/25/19at 08:49; Admin Dose 1 APPLIC; Start 04/21/19 at 16:00 Collagenase (Santyl) 1 applic PRN PRN TOP PER WND CARE ORDERS-SACRUM; Start 04/21/19 at 14:30 Multivitamins (Multivitamin) 30 ml DAILY GTB Last administered on 04/25/19at 08:49; Admin Dose 30 ML; Start 04/24/19 at 09:00 Potassium Chloride/Dextrose/ Sod Cl 1,000 ml @ 70 mls/hr [id number] IV Last administered on 04/25/19at 05:44; Admin Dose 70 MLS/HR; Start 04/24/19 at 00:00 Vancomycin/Sodium Chloride 250 ml @ 125 mls/hr Q12H IVPB Last administered on 04/25/19at 02:55; Admin Dose 125 MLS/HR; Start 04/24/19 at 14:00 Miscellaneous Information (*Rx Drug Level Order Reminder*) VANCO TROUGH @ 0,100 ON... 0100 ONCE XX ; Start 04/26/19 at 01:00; Stop 04/26/19 at 01:01 ANTHONY JOY NP Apr 25, 2019 13:09
--- NOTE | 2019-04-25 13:35 | CONS ---
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 HTN-labile and uncontrolled much of the time 8. Encephalopathy Recc: -Now on tele -Contineu abx's and f/u cx data -Continue keppra -Start BB and follow HR/BP clsoely Consultation Date/Type/Reason Admit Date/Time Apr 21, 2019 at 10:34 Initial Consult Date 04/22/19 Type of Consult Cardiology Reason for Consultation SVT Requesting Provider: NICOLE BUCHANAN MD Date/Time of Note DATE: 04/25/19 TIME: 13:33 Exam/Review of Systems Vital Signs Vitals Vital Signs Date Temp Pulse Resp B/P (MAP) Pulse Ox O2 O2 Flow FiO2 Time Delivery Rate 04/25/19 98.4 94 18 169/78 99 11:26 (108) 04/25/19 5.0 07:57 04/25/19 T Tube 07:45 04/25/19 28 07:45 Intake and Output 04/24/19 04/24/19 04/25/19 1515:00 23:00 07:00 OutputOutput Total 1000 ml 750 ml BalanceBalance -1000 ml -750 ml Exam Exam Review of Systems: CONSTITUTIONAL: No fevers, chills. PULMONARY: No sob CARDIOVASCULAR: No chest pain/palpitations GASTROINTESTINAL: No nausea/vomiting. GENITOURINARY: No hematuria/dysuria. MUSCULOSKELETAL: No myagias/arthalgias. PSYCHIATRIC: The patient denies depression. NEUROLOGIC: encephalopathic Constitutional: other (encephalopathy) Psych: no complaints Head: normocephalic ENMT: mucosa pink and moist Neck: supple, jvd (9 cm water) Respiratory: diminished breath sounds (at bases/B) Cardiovascular: regular rate and rhythm Gastrointestinal: soft, non-tender Musculoskeletal: muscle weakness (generalized) Extremities: edema (trace/B) Neurological: unresponsive Labs Result Diagram: 04/25/19 0503 04/25/19 0502 Results 24hrs Laboratory Tests Test 04/24/19 17:06 04/24/19 19:02 04/25/19 00:39 04/25/19 05:02 Bedside Glucose 215 193 Sodium Level 142 143 Potassium Level 3.3 L 3.8 Chloride Level 108 107 Carbon Dioxide Level 26 26 Anion Gap 8 10 Blood Urea Nitrogen 5 L 7 Creatinine 0.39 L 0.32 L Est Glomerular Filtrat Rate mL/min Glucose Level 220 168 Calcium Level 8.6 8.8 Test 04/25/19 05:03 04/25/19 05:42 04/25/19 11:58 White Blood Count 8.5 Red Blood Count 4.04 #L Hemoglobin 9.9 #L Hematocrit 32.6 #L Mean Corpuscular 80.7 L Volume Mean Corpuscular 24.5 L Hemoglobin Mean Corpuscular 30.4 L Hemoglobin Concent Red Cell 17.8 H Distribution Width Platelet Count 408 Mean Platelet Volume 10.3 Immature 4.000 H Granulocytes % Neutrophils % 52.7 Lymphocytes % 30.6 Monocytes % 7.4 Eosinophils % 4.8 Basophils % 0.5 Nucleated Red Blood 0.0 Cells % Immature 0.340 H Granulocytes # Neutrophils # 4.5 Lymphocytes # 2.6 Monocytes # 0.6 Eosinophils # 0.4 Basophils # 0.0 Nucleated Red Blood 0.0 Cells # Prothrombin Time 13.5 Prothrombin Time 1.1 Ratio INR International 1.02 Normalized Ratio Activated 25.2 Partial Thromboplast Time Thrombin Time 15.9 Bedside Glucose 181 224 H Medications Medications Current Medications Levetiracetam 100 ml @ 400 mls/hr Q12 IVPB Last administered on 04/25/19at 09:25; Admin Dose 400 MLS/HR; Start 04/21/19 at 21:00 Ondansetron HCl (Zofran Inj) 4 mg Q6H PRN IV NAUSEA AND/OR VOMITING; Start 04/21/19 at 13:00 Levalbuterol (Xopenex Neb) 0.63 mg Q2H RESP THERAPY PRN HHN WHEEZING AND SOB; Start 04/21/19 at 14:00 Diagnostic Test (Pha) (Accu-Chek) 1 ea 02 XX ; Start 04/22/19 at 02:00 Insulin Aspart (Novolog Insulin Pen) NOVOLOG *MILD* ALGORITHM Q6 SC Last administered on 04/25/19at 12:00; Admin Dose 3 UNIT; Start 04/21/19 at 18:00 Pantoprazole (Protonix Iv) 40 mg BID@06,18 IV Last administered on 04/25/19at 05:43; Admin Dose 40 MG; Start 04/21/19 at 18:00 Miscellaneous Information 1 ea NOTE XX ; Start 04/21/19 at 14:00 Glucose (Glutose) 15 gm Q15M PRN PO DECREASED GLUCOSE; Start 04/21/19 at 14:00 Glucose (Glutose) 22.5 gm Q15M PRN PO DECREASED GLUCOSE; Start 04/21/19 at 14:00 Dextrose (D50w Syringe) 25 ml Q15M PRN IV DECREASED GLUCOSE; Start 04/21/19 at 14:00 Dextrose (D50w Syringe) 50 ml Q15M PRN IV DECREASED GLUCOSE; Start 04/21/19 at 14:00 Glucagon (Glucagen) 1 mg Q15M PRN IM DECREASED GLUCOSE; Start 04/21/19 at 14:00 Glucose (Glutose) 15 gm Q15M PRN BUCCAL DECREASED GLUCOSE; Start 04/21/19 at 14:00 Collagenase (Santyl) 1 applic DAILY TOP Last administered on 04/25/19at 08:49; Admin Dose 1 APPLIC; Start 04/21/19 at 16:00 Collagenase (Santyl) 1 applic PRN PRN TOP PER WND CARE ORDERS-SACRUM; Start 04/21/19 at 14:30 Multivitamins (Multivitamin) 30 ml DAILY GTB Last administered on 04/25/19at 08:49; Admin Dose 30 ML; Start 04/24/19 at 09:00 Potassium Chloride/Dextrose/ Sod Cl 1,000 ml @ 70 mls/hr [id number] IV Last administered on 04/25/19at 05:44; Admin Dose 70 MLS/HR; Start 04/24/19 at 00:00 Meropenem/Sodium Chloride 50 ml @ 100 mls/hr Q12 IVPB ; Start 04/25/19 at 21:00 Fluconazole/ Sodium Chloride 50 ml @ 50 mls/hr Q24H IVPB ; Start 04/25/19 at 15:00 Nystatin (Nystatin Oint) 1 applic BID TOP ; Start 04/25/19 at 21:00 JOSE M IRWIN 11, 2019 13:35
--- NOTE | 2019-04-25 13:49 | PN ---
Date/Time of Note Date/Time of Note DATE: 04/25/19 TIME: 13:43 Assessment/Plan VTE Prophylaxis Risk score (from Ns)>0 risk: 7 SCD applied (from Ns): Yes Pharmacological prophylaxis: NA/contraindicated Pharm contraindication: bleeding Lines/Catheters IV Catheter Type (from Nrs): Mid Line Urinary Cath still in place: Yes Reason Cath still needed: urinary retention Assessment/Plan Hospital Course Patient looks comfortable on cool aerosol mist, plan for EGD today patient is currently n.p.o. continue IV fluids with dextrose slightly elevated sugar will change NovoLog sliding scale to moderate scale with Accu-Cheks every 6 hours. Assessment/Plan - GI bleed, Dr. Prieto is following in gastroenterology consultation. Continue n.p.o., IV fluids. - Possible sepsis. Continue antibiotics per ID. Dr. Mcmullen is following in infection disease consultation. - Tracheobronchitis versus early pneumonia - Ventilator dependent respiratory failure. Dr. De La Torre is following in pulmonology consultation - Hypertension. Continue Norvasc and losartan. - Diabetes. Continue Lantus and sliding scale insulin in addition to metformin. - Seizure disorder, continue Keppra. - Anemia multifactorial chronic disease and possible acute blood loss. - Hx of CVA, continue Plavix. - Multiple pressure ulcers continue wound care per wound care consult, offloading, air mattress, optimize nutrition. Further recommendations based on clinical course. Plan of care discussed with Dr. Mera. Result Diagram: 04/25/19 0503 04/25/19 0502 Results 24hrs Laboratory Tests Test 04/24/19 17:06 04/24/19 19:02 04/25/19 00:39 04/25/19 05:02 Bedside Glucose 215 193 Sodium Level 142 143 Potassium Level 3.3 L 3.8 Chloride Level 108 107 Carbon Dioxide Level 26 26 Anion Gap 8 10 Blood Urea Nitrogen 5 L 7 Creatinine 0.39 L 0.32 L Est Glomerular Filtrat Rate mL/min Glucose Level 220 168 Calcium Level 8.6 8.8 Test 04/25/19 05:03 04/25/19 05:42 04/25/19 11:58 White Blood Count 8.5 Red Blood Count 4.04 #L Hemoglobin 9.9 #L Hematocrit 32.6 #L Mean Corpuscular 80.7 L Volume Mean Corpuscular 24.5 L Hemoglobin Mean Corpuscular 30.4 L Hemoglobin Concent Red Cell 17.8 H Distribution Width Platelet Count 408 Mean Platelet Volume 10.3 Immature 4.000 H Granulocytes % Neutrophils % 52.7 Lymphocytes % 30.6 Monocytes % 7.4 Eosinophils % 4.8 Basophils % 0.5 Nucleated Red Blood 0.0 Cells % Immature 0.340 H Granulocytes # Neutrophils # 4.5 Lymphocytes # 2.6 Monocytes # 0.6 Eosinophils # 0.4 Basophils # 0.0 Nucleated Red Blood 0.0 Cells # Prothrombin Time 13.5 Prothrombin Time 1.1 Ratio INR International 1.02 Normalized Ratio Activated 25.2 Partial Thromboplast Time Thrombin Time 15.9 Bedside Glucose 181 224 H Exam/Review of Systems Exam Vitals Vital Signs Date Temp Pulse Resp B/P (MAP) Pulse Ox O2 O2 Flow FiO2 Time Delivery Rate 04/25/19 98.4 94 18 169/78 99 11:26 (108) 04/25/19 5.0 07:57 04/25/19 T Tube 07:45 04/25/19 28 07:45 Intake and Output 04/24/19 04/24/19 04/25/19 1515:00 23:00 07:00 OutputOutput Total 1000 ml 750 ml BalanceBalance -1000 ml -750 ml Exam Constitutional: alert, non-verbal Respiratory: congested cough, diminished breath sounds Cardiovascular: regular rate and rhythm Gastrointestinal: soft, non-tender, other (G-tube) Musculoskeletal: nl extremities to inspection Extremities: normal pulses Neurological: confused Skin: nl turgor, other (Multiple pressure ulcers) Results Results 24hrs Laboratory Tests Test 04/24/19 17:06 04/24/19 19:02 04/25/19 00:39 04/25/19 05:02 Bedside Glucose 215 193 Sodium Level 142 143 Potassium Level 3.3 L 3.8 Chloride Level 108 107 Carbon Dioxide Level 26 26 Anion Gap 8 10 Blood Urea Nitrogen 5 L 7 Creatinine 0.39 L 0.32 L Est Glomerular Filtrat Rate mL/min Glucose Level 220 168 Calcium Level 8.6 8.8 Test 04/25/19 05:03 04/25/19 05:42 04/25/19 11:58 White Blood Count 8.5 Red Blood Count 4.04 #L Hemoglobin 9.9 #L Hematocrit 32.6 #L Mean Corpuscular 80.7 L Volume Mean Corpuscular 24.5 L Hemoglobin Mean Corpuscular 30.4 L Hemoglobin Concent Red Cell 17.8 H Distribution Width Platelet Count 408 Mean Platelet Volume 10.3 Immature 4.000 H Granulocytes % Neutrophils % 52.7 Lymphocytes % 30.6 Monocytes % 7.4 Eosinophils % 4.8 Basophils % 0.5 Nucleated Red Blood 0.0 Cells % Immature 0.340 H Granulocytes # Neutrophils # 4.5 Lymphocytes # 2.6 Monocytes # 0.6 Eosinophils # 0.4 Basophils # 0.0 Nucleated Red Blood 0.0 Cells # Prothrombin Time 13.5 Prothrombin Time 1.1 Ratio INR International 1.02 Normalized Ratio Activated 25.2 Partial Thromboplast Time Thrombin Time 15.9 Bedside Glucose 181 224 H Medications Medication Current Medications Levetiracetam 100 ml @ 400 mls/hr Q12 IVPB Last administered on 04/25/19at 09:25; Admin Dose 400 MLS/HR; Start 04/21/19 at 21:00 Ondansetron HCl (Zofran Inj) 4 mg Q6H PRN IV NAUSEA AND/OR VOMITING; Start 04/21/19 at 13:00 Levalbuterol (Xopenex Neb) 0.63 mg Q2H RESP THERAPY PRN HHN WHEEZING AND SOB; Start 04/21/19 at 14:00 Diagnostic Test (Pha) (Accu-Chek) 1 ea 02 XX ; Start 04/22/19 at 02:00 Insulin Aspart (Novolog Insulin Pen) NOVOLOG *MILD* ALGORITHM Q6 SC Last administered on 04/25/19at 12:00; Admin Dose 3 UNIT; Start 04/21/19 at 18:00 Pantoprazole (Protonix Iv) 40 mg BID@06,18 IV Last administered on 04/25/19at 05:43; Admin Dose 40 MG; Start 04/21/19 at 18:00 Miscellaneous Information 1 ea NOTE XX ; Start 04/21/19 at 14:00 Glucose (Glutose) 15 gm Q15M PRN PO DECREASED GLUCOSE; Start 04/21/19 at 14:00 Glucose (Glutose) 22.5 gm Q15M PRN PO DECREASED GLUCOSE; Start 04/21/19 at 14:00 Dextrose (D50w Syringe) 25 ml Q15M PRN IV DECREASED GLUCOSE; Start 04/21/19 at 14:00 Dextrose (D50w Syringe) 50 ml Q15M PRN IV DECREASED GLUCOSE; Start 04/21/19 at 14:00 Glucagon (Glucagen) 1 mg Q15M PRN IM DECREASED GLUCOSE; Start 04/21/19 at 14:00 Glucose (Glutose) 15 gm Q15M PRN BUCCAL DECREASED GLUCOSE; Start 04/21/19 at 14:00 Collagenase (Santyl) 1 applic DAILY TOP Last administered on 04/25/19at 08:49; Admin Dose 1 APPLIC; Start 04/21/19 at 16:00 Collagenase (Santyl) 1 applic PRN PRN TOP PER WND CARE ORDERS-SACRUM; Start 04/21/19 at 14:30 Multivitamins (Multivitamin) 30 ml DAILY GTB Last administered on 04/25/19at 08:49; Admin Dose 30 ML; Start 04/24/19 at 09:00 Potassium Chloride/Dextrose/ Sod Cl 1,000 ml @ 70 mls/hr [id number] IV Last administered on 04/25/19at 05:44; Admin Dose 70 MLS/HR; Start 04/24/19 at 00:00 Meropenem/Sodium Chloride 50 ml @ 100 mls/hr Q12 IVPB ; Start 04/25/19 at 21:00 Fluconazole/ Sodium Chloride 50 ml @ 50 mls/hr Q24H IVPB ; Start 04/25/19 at 15:00 Nystatin (Nystatin Oint) 1 applic BID TOP ; Start 04/25/19 at 21:00 Metoprolol Tartrate (Lopressor) 25 mg BID PO ; Start 04/25/19 at 14:00 DWAYNE CALDERON Apr 25, 2019 13:49
[2019-04-25] MEDS: METOPROLOL 25 MG TAB PO SCH ×2 (14:42→21:26)
[2019-04-25] MEDS: FLUCONAZOLE 100 MG/50 ML (PMX) 50 ML IVPB SCH (15:00)
--- NOTE | 2019-04-25 16:08 | PREAC ---
Date/Time of Note Date/Time of Note DATE: 04/25/19 TIME: 16:07 Anesthesia Eval and Record Evaluation Time Pre-Procedure Interview DATE: 04/25/19 TIME: 16:07 Age 73 Sex female NPO: 8 hrs Preoperative diagnosis GI BLEEDING Planned procedure EGD WITH BIOPSIES Past Medical History Past Medical History: Includes (SEPSIS) Cardio: HTN Endo: Diabetes Pulm: Other (RESPIRATORY FAILURE S/P TRACH) Neuro: CVA Surgery & Anesthesia Issues No known issue Meds Anticoagulation: No Beta Eloy within 24 hr: No Reason Beta Eloy not given: Pt. not on B-Eloy Reported Medications Ascorbic Acid (Vitamin C) 500 Mg Tab, 500 MG GTB BID, TAB 04/01/19 Cran/Vitc/Mannose/Inulin/Brom (Uti-Stat Liquid) 3,875 Mg/30 Ml Liquid, 30 ML GTB BID 04/01/19 Acetaminophen* (Tylenol*) 325 Mg Tablet, 650 MG GTB NEEDED PRN for TRACH TUBE CHANGE, TAB 04/01/19 Amino Acids/Protein Hydrolys (PRO-STAT LIQUID) 30 Ml Liquid.pkt, 30 ML GTB BID SUGAR FREE 04/01/19 Prednisone* (Prednisone*) 20 Mg Tab, 20 MG GTB DAILY, TAB 04/01/19 Potassium Chloride* (Potassium Chloride*) 20 Meq/15 Ml Liquid, 22.5 ML GTB DAILY, ML 04/01/19 Hydrocodone/Acetaminophen ([place] 5-325 Tablet) 1 Each Tablet, 1 EACH GTB BID, TAB 04/01/19 Losartan Potassium* (Losartan Potassium*) 100 Mg Tablet, 100 MG GTB DAILY, TAB HOLD IF SBP<110 OR HR<60 04/01/19 Levetiracetam* (Keppra* (Ped)) 100 Mg/Ml Liq, 5 ML GTB BID for 30 Days, BOTTLE 04/01/19 Metformin Hcl* (Metformin Hcl*) 500 Mg Tablet, 500 MG GTB WITH BREAKFAST DINNE, #60 TAB 04/01/19 Ferrous Sulfate* (Ferrous Sulfate*) 220 Mg/5 Ml Solution, 7.5 ML GTB DAILY, ML 04/01/19 Cranberry Extract (Cranberry) 425 Mg Capsule, 425 MG GTB BID, CAP 04/01/19 Docusate Sodium* (Colace*) 100 Mg Capsule, 100 MG GTB QHS, #30 CAP 04/01/19 Clopidogrel Bisulfate* (Clopidogrel Bisulfate*) 75 Mg Tablet, 75 MG GTB DAILY, #30 TAB 04/01/19 Loratadine* (Loratadine*) 10 Mg Tablet, 10 MG GTB DAILY, #30 TAB 04/01/19 Chlorhexidine Gluconate (Peridex) 473 Ml Mouthwash, 15 ML MM Q12H, BOTTLE 04/01/19 Insulin Glargine,Hum.rec.anlog (Basaglar Kwikpen U-100) 100 Unit/1 Ml Insuln.pen, 63 UNIT SC Q12H, EA 04/01/19 Amlodipine Besylate* (Amlodipine Besylate*) 10 Mg Tablet, 10 MG GTB DAILY, #30 TAB HOLD FOR SBP <110 OR HR<60 04/01/19 Albuterol Sulfate* (Albuterol Sulfate* Neb) 0.083%-3 Ml Neb, 2.5 MG NEB Q3H PRN for WHEEZING AND SOB, #30 VIAL 04/01/19 Current Medications Levetiracetam 100 ml @ 400 mls/hr Q12 IVPB Last administered on 04/25/19at 09:25; Admin Dose 400 MLS/HR; Start 04/21/19 at 21:00 Ondansetron HCl (Zofran Inj) 4 mg Q6H PRN IV NAUSEA AND/OR VOMITING; Start 04/21/19 at 13:00 Levalbuterol (Xopenex Neb) 0.63 mg Q2H RESP THERAPY PRN HHN WHEEZING AND SOB; Start 04/21/19 at 14:00 Diagnostic Test (Pha) (Accu-Chek) 1 ea 02 XX ; Start 04/22/19 at 02:00 Pantoprazole (Protonix Iv) 40 mg BID@06,18 IV Last administered on 04/25/19at 05:43; Admin Dose 40 MG; Start 04/21/19 at 18:00 Miscellaneous Information 1 ea NOTE XX ; Start 04/21/19 at 14:00 Glucose (Glutose) 15 gm Q15M PRN PO DECREASED GLUCOSE; Start 04/21/19 at 14:00 Glucose (Glutose) 22.5 gm Q15M PRN PO DECREASED GLUCOSE; Start 04/21/19 at 14:00 Dextrose (D50w Syringe) 25 ml Q15M PRN IV DECREASED GLUCOSE; Start 04/21/19 at 14:00 Dextrose (D50w Syringe) 50 ml Q15M PRN IV DECREASED GLUCOSE; Start 04/21/19 at 14:00 Glucagon (Glucagen) 1 mg Q15M PRN IM DECREASED GLUCOSE; Start 04/21/19 at 14:00 Glucose (Glutose) 15 gm Q15M PRN BUCCAL DECREASED GLUCOSE; Start 04/21/19 at 14:00 Collagenase (Santyl) 1 applic DAILY TOP Last administered on 04/25/19at 08:49; Admin Dose 1 APPLIC; Start 04/21/19 at 16:00 Collagenase (Santyl) 1 applic PRN PRN TOP PER WND CARE ORDERS-SACRUM; Start 04/21/19 at 14:30 Multivitamins (Multivitamin) 30 ml DAILY GTB Last administered on 04/25/19at 08:49; Admin Dose 30 ML; Start 04/24/19 at 09:00 Potassium Chloride/Dextrose/ Sod Cl 1,000 ml @ 70 mls/hr [id number] IV Last administered on 04/25/19at 05:44; Admin Dose 70 MLS/HR; Start 04/24/19 at 00:00 Meropenem/Sodium Chloride 50 ml @ 100 mls/hr Q12 IVPB ; Start 04/25/19 at 21:00 Fluconazole/ Sodium Chloride 50 ml @ 50 mls/hr Q24H IVPB ; Start 04/25/19 at 15:00 Nystatin (Nystatin Oint) 1 applic BID TOP ; Start 04/25/19 at 21:00 Metoprolol Tartrate (Lopressor) 25 mg BID PO Last administered on 04/25/19at 14:42; Admin Dose 25 MG; Start 04/25/19 at 14:00 Insulin Aspart (Novolog Insulin Pen) (Adult SC Insulin - Moder... Q6 SC ; Start 04/25/19 at 18:00 Meds reviewed: Yes Allergies Coded Allergies: levofloxacin (Unverified Allergy, Unknown, 04/01/19) Allergies Reviewed: Yes Labs/Studies Labs Reviewed: Reviewed by anesthesiologist Result Diagram: 04/25/19 0503 04/25/19 0502 Laboratory Tests 04/25/19 05:02 04/25/19 05:03 Blood Bank Test 04/24/19 19:02 Antibody Screen NEGATIVE Blood Product Summary Counts Blood Type O POSITIVE Crossmatch Red Blood Cells test: N/A Pre-procedure Exam Last vitals Vital Signs Date Temp Pulse Resp B/P (MAP) Pulse Ox O2 O2 Flow FiO2 Time Delivery Rate 04/25/19 5 15:31 04/25/19 97 28 15:20 04/25/19 88 20 Aerosol 15:20 T Tube 04/25/19 98.4 169/78 11:26 (108) Airway: Adequate mouth opening, Adequate thyromental dist Mallampati: Mallampati II Teeth: Normal Lung: Normal Heart: Normal ASA Physical Status ASA physical status: 3 Emergency: None Planned Anesthetic General/MAC: MAC Planned Pain Management Parenteral pain med Pre-operative Attestations Prior to commencing anesthesia and surgery, the patient was re-evaluated, there was verification of: *The patient's identity *The results of appropriate recent lab work and preoperative vital signs *The above evaluation not changing prior to induction *Anesthetic plan, risk benefits, alternative and complications discussed with patient/family; questions answered; patient/family understands, accepts and wishes to proceed. Luke Darby M.D. Apr 25, 2019 16:08
[2019-04-25] MEDS ORDERED: LIDOCAINE 100 MG SYRINGE ONE (16:09)
[2019-04-25] MEDS ORDERED: PROPOFOL 20 ML ONE (16:09)
--- NOTE | 2019-04-25 16:45 | PAC ---
Date/Time of Note Date/Time of Note DATE: 04/25/19 TIME: 16:45 Post-Anesthesia Notes Post-Anesthesia Note Last documented vital signs Vital Signs Date Temp Pulse Resp B/P (MAP) Pulse Ox O2 O2 Flow FiO2 Time Delivery Rate 04/25/19 5 15:31 04/25/19 97 28 15:20 04/25/19 88 20 Aerosol 15:20 T Tube 04/25/19 98.4 169/78 11:26 (108) Activity: WNL Respiratory function: WNL Cardiovascular function: WNL Mental status: Baseline Pain reasonably controlled: Yes Hydration appropriate: Yes Nausea/Vomiting absent: Yes Luke Darby M.D. Apr 25, 2019 16:45
[2019-04-25] MEDS: LANSOPRAZOLE 30 MG CAP GTB SCH (17:54)
[2019-04-25] MEDS: Insulin NOVOLOG SS MODERATE Algorithm(NPO/TPN/ENTERAL FEEDS) SC SCH ×2 (17:55→23:59)
[2019-04-25] MEDS ORDERED: INSULIN ASPART [NOVOLOG] 3 ML PEN SC SCH (18:00)
[2019-04-25] MEDS ORDERED: PANTOPRAZOLE (EC) 40 MG TAB PO SCH (18:00)
--- NOTE | 2019-04-25 19:15 | RADRPT ---
Vent Rate: 92 bpm RR Interval: 648 msec FL Interval: 130 msec QRS Duration: 82 msec QT Interval: 359 msec QTC Interval: 446 msec P-R-T [place]: 31 - 12 - 55 degrees Sinus rhythm...normal P axis, V-rate 50- 99 Electronically Signed By: Vito Asher
[2019-04-25] MEDS: NYSTATIN 15 GM OINT TOP SCH (21:27)
[2019-04-25] MEDS: MEROPENEM 1 GM/50ML(PMX) 50 ML IVPB SCH (21:56)
[2019-04-26] VITALS: BP 159/84; PULSE 80; RESP 18
[2019-04-26] MEDS: ACCU-CHEK XX SCH (02:00)
[2019-04-26] MEDS: D5W-0.45 NACL + KCL 20 MEQ 1,000 ML IV SCH (02:04)
[2019-04-26 03:48] VITALS: BP 144/66; PULSE 96; RESP 19
[2019-04-26] MEDS: LANSOPRAZOLE 30 MG CAP GTB SCH ×2 (05:49→17:30)
[2019-04-26] MEDS: Insulin NOVOLOG SS MODERATE Algorithm(NPO/TPN/ENTERAL FEEDS) SC SCH ×3 (06:03→17:33)
[2019-04-26 07:14] VITALS: BP 152/67; PULSE 99; RESP 18
[2019-04-26] MEDS: MULTIVITAMINS 30 ML CUP GTB SCH (09:27)
[2019-04-26] MEDS: METOPROLOL 25 MG TAB PO SCH (09:28)
[2019-04-26] MEDS: MEROPENEM 1 GM/50ML(PMX) 50 ML IVPB SCH ×2 (09:29→21:20)
[2019-04-26] MEDS: NYSTATIN 15 GM OINT TOP SCH ×2 (09:29→20:38)
[2019-04-26] MEDS: LEVETIRACETAM 500 MG (PMX) 100 ML IVPB SCH ×2 (09:29→20:39)
[2019-04-26] MEDS: COLLAGENASE 5 GM (UD JAR) TOP SCH (09:29)
[2019-04-26] MEDS ORDERED: POTASSIUM CHLORIDE 100 ML IVPB ONE (10:00)
--- NOTE | 2019-04-26 10:48 | CONS ---
Consultation Date/Type/Reason Admit Date/Time Apr 21, 2019 at 10:34 Initial Consult Date 04/22/19 Type of Consult Pulmonary/critical care Patient is a 73-year-old lady who was transferred over from [facility] after the patient developed anemia. Patient also has been diagnosed with sepsis from sacral decubitus ulcer and possibly pneumonia. Patient has advanced encephalopathy and was noncommunicative. Patient did not appear to be in any distress. On T-piece. Past medical history; #1.History of encephalopathy #2 recurrent anemia #3 hypertension #4 diabetes #5 seizure disorder #6 history of tracheostomy and G-tube placement Medications; reviewed Allergies; Levaquin Family history, social history, occupational history is not available. Review of system; unable to be obtained. General exam; elderly woman, on T-piece via tracheostomy awake but noncommunicative currently in no distress. Requesting Provider: NICOLE BUCHANAN MD Date/Time of Note DATE: 04/26/19 TIME: 10:46 24 HR Interval Summary Free Text/Dictation Patient's condition is stable. Remains noncommunicative. Has remained hemodynamically stable. General exam; elderly female, noncommunicative. Currently no distress. On T- piece via tracheostomy. HEENT exam; supple neck, no JVD. No lymphadenopathy. Midline trachea. No thyromegaly. Tracheostomy in place. Chest exam; diminished but clear breath sounds. S1-S2 audible, no murmurs. Regular rhythm. Abdomen exam; soft, no organomegaly. G-tube in place. Bowel sounds are audible. Extremity exam; no peripheral edema. WET [employer]ESS [employer]ER exam; patient remains unresponsive. Assessment and recommendations; 1. Patient admitted with pneumonia and sepsis with interval improvement. 2. Advanced encephalopathy/dementia. 3. Chronic dysphagia due to #2 above. Status post G-tube placement in the past. 4. History of hypertension. 5. Sacral ulcer. Continue current supportive care. Consider [facility]. Progn osis is poor. Exam/Review of Systems Exam Vitals Vital Signs Date Temp Pulse Resp B/P (MAP) Pulse Ox O2 O2 Flow FiO2 Time Delivery Rate 04/26/19 99.3 99 18 152/67 97 07:14 (95) 04/26/19 5.0 28 03:58 04/25/19 Trach 17:12 Collar Intake and Output 04/25/19 04/25/19 04/26/19 1515:00 23:00 07:00 OutputOutput Total 450 ml 900 ml BalanceBalance -450 ml -900 ml Results Result Diagram: 04/26/19 0702 04/26/19 0702 Results 24hrs Laboratory Tests Test 04/25/19 11:58 04/25/19 17:54 04/25/19 23:48 04/26/19 05:45 Bedside Glucose 224 H 164 181 192 Test 04/26/19 06:25 04/26/19 07:02 Lab Scanned BLOOD TRANSFUSIO Report N White Blood Count 8.6 Red Blood Count 4.17 L Hemoglobin 10.1 L Hematocrit 33.8 L Mean Corpuscular 81.1 L Volume Mean Corpuscular 24.2 L Hemoglobin Mean Corpuscular 29.9 L Hemoglobin Concen t Red Cell 18.7 H Distribution Width Platelet Count 422 H Mean Platelet 10.0 Volume Immature 2.500 H Granulocytes % Neutrophils % 59.0 Lymphocytes % 27.7 Monocytes % 6.7 Eosinophils % 3.6 Basophils % 0.5 Nucleated Red 0.0 Blood Cells % Immature 0.210 H Granulocytes # Neutrophils # 5.1 Lymphocytes # 2.4 Monocytes # 0.6 Eosinophils # 0.3 Basophils # 0.0 Nucleated Red 0.0 Blood Cells # Sodium Level 142 Potassium Level 3.3 L Chloride Level 106 Carbon Dioxide 28 Level Anion Gap 8 Blood Urea 7 Nitrogen Creatinine 0.34 L Est Glomerular Filtrat Rate mL/min Glucose Level 192 Calcium Level 8.7 Medications Medication Current Medications Levetiracetam 100 ml @ 400 mls/hr Q12 IVPB Last administered on 04/26/19at 09:29; Admin Dose 400 MLS/HR; Start 04/21/19 at 21:00 Ondansetron HCl (Zofran Inj) 4 mg Q6H PRN IV NAUSEA AND/OR VOMITING; Start 04/21/19 at 13:00 Levalbuterol (Xopenex Neb) 0.63 mg Q2H RESP THERAPY PRN HHN WHEEZING AND SOB; Start 04/21/19 at 14:00 Diagnostic Test (Pha) (Accu-Chek) 1 ea 02 XX ; Start 04/22/19 at 02:00 Miscellaneous Information 1 ea NOTE XX ; Start 04/21/19 at 14:00 Glucose (Glutose) 15 gm Q15M PRN PO DECREASED GLUCOSE; Start 04/21/19 at 14:00 Glucose (Glutose) 22.5 gm Q15M PRN PO DECREASED GLUCOSE; Start 04/21/19 at 14:00 Dextrose (D50w Syringe) 25 ml Q15M PRN IV DECREASED GLUCOSE; Start 04/21/19 at 14:00 Dextrose (D50w Syringe) 50 ml Q15M PRN IV DECREASED GLUCOSE; Start 04/21/19 at 14:00 Glucagon (Glucagen) 1 mg Q15M PRN IM DECREASED GLUCOSE; Start 04/21/19 at 14:00 Glucose (Glutose) 15 gm Q15M PRN BUCCAL DECREASED GLUCOSE; Start 04/21/19 at 14:00 Collagenase (Santyl) 1 applic DAILY TOP Last administered on 04/26/19at 09:29; Admin Dose 1 APPLIC; Start 04/21/19 at 16:00 Collagenase (Santyl) 1 applic PRN PRN TOP PER WND CARE ORDERS-SACRUM; Start 04/21/19 at 14:30 Multivitamins (Multivitamin) 30 ml DAILY GTB Last administered on 04/26/19at 09:27; Admin Dose 30 ML; Start 04/24/19 at 09:00 Potassium Chloride/Dextrose/ Sod Cl 1,000 ml @ 70 mls/hr [id number] IV Last administered on 04/26/19at 02:04; Admin Dose 70 MLS/HR; Start 04/24/19 at 00:00 Meropenem/Sodium Chloride 50 ml @ 100 mls/hr Q12 IVPB Last administered on 04/26/19at 09:29; Admin Dose 100 MLS/HR; Start 04/25/19 at 21:00 Fluconazole/ Sodium Chloride 50 ml @ 50 mls/hr Q24H IVPB ; Start 04/25/19 at 15:00 Nystatin (Nystatin Oint) 1 applic BID TOP Last administered on 04/26/19at 09:29; Admin Dose 1 APPLIC; Start 04/25/19 at 21:00 Metoprolol Tartrate (Lopressor) 25 mg BID PO Last administered on 04/26/19at 0 9:28; Admin Dose 25 MG; Start 04/25/19 at 14:00 Insulin Aspart (Novolog Insulin Pen) (Adult SC Insulin - Moder... Q6 SC Last administered on 04/26/19at 06:03; Admin Dose 4 UNIT; Start 04/25/19 at 18:00 Lansoprazole (Prevacid) 30 mg BID@0600,1800 GTB Last administered on 04/26/19at 05:49; Admin Dose 30 MG; Start 04/25/19 at 18:00 Potassium Chloride 100 ml @ 50 mls/hr ONCE ONCE IVPB ; Start 04/26/19 at 10:00; Stop 04/26/19 at 11:59 ADRIANA TOVAR Apr 26, 2019 10:48
--- NOTE | 2019-04-26 10:49 | PN ---
Date/Time of Note Date/Time of Note DATE: 04/26/19 TIME: 10:44 Assessment/Plan VTE Prophylaxis Risk score [place]from [facility] [place] risk: 9 SCD applied (from [facility] [place] Yes SCD contraindicated: other Pharmacological prophylaxis: other Pharm contraindication: other Lines/Catheters IV C[facility] Type ([facility] PICC Line Central line still needed: Yes Urinary Cath still in place: Yes Reason Cath still needed: urinary retention Assessment/Plan Assessment/Plan - Hypokalemia- replace K; am BMP - GI bleed - Dr. Prieto is following in gastroenterology consultation. - Continue n.p.o., IV fluids. - SP EGD- showed Esophagitis/Gastritis - Possible sepsis. Continue antibiotics per ID. Dr. Mcmullen is following in infection disease consultation. - Tracheobronchitis versus early pneumonia - Ventilator dependent respiratory failure. Dr. De La Torre is following in pulmonology consultation - Hypertension. Continue Norvasc and losartan. - Diabetes. Continue Lantus and sliding scale insulin in addition to metformin. - Seizure disorder, continue Keppra. - Anemia multifactorial chronic disease and possible acute blood loss. - Hx of CVA, continue Plavix. - Multiple pressure ulcers continue wound care per wound care consult, offloading, air mattress, optimize nutrition. Further recommendations based on clinical course. Plan of care discussed with Dr. Mera. Result Diagram: 04/26/19 0702 04/26/19 0702 Results 24hrs Laboratory Tests Test 04/25/19 11:58 04/25/19 17:54 04/25/19 23:48 04/26/19 05:45 Bedside Glucose 224 H 164 181 192 Test 04/26/19 06:25 04/26/19 07:02 Lab Scanned BLOOD TRANSFUSIO Report N White Blood Count 8.6 Red Blood Count 4.17 L Hemoglobin 10.1 L Hematocrit 33.8 L Mean Corpuscular 81.1 L Volume Mean Corpuscular 24.2 L Hemoglobin Mean Corpuscular 29.9 L Hemoglobin Concen t Red Cell 18.7 H Distribution Width Platelet Count 422 H Mean Platelet 10.0 Volume Immature 2.500 H Granulocytes % Neutrophils % 59.0 Lymphocytes % 27.7 Monocytes % 6.7 Eosinophils % 3.6 Basophils % 0.5 Nucleated Red 0.0 Blood Cells % Immature 0.210 H Granulocytes # Neutrophils # 5.1 Lymphocytes # 2.4 Monocytes # 0.6 Eosinophils # 0.3 Basophils # 0.0 Nucleated Red 0.0 Blood Cells # Sodium Level 142 Potassium Level 3.3 L Chloride Level 106 Carbon Dioxide 28 Level Anion Gap 8 Blood Urea 7 Nitrogen Creatinine 0.34 L Est Glomerular Filtrat Rate mL/min Glucose Level 192 Calcium Level 8.7 Subjective 24 Hr Interval Summary Free Text/Dictation - NAD - afebrile -Patient looks comfortable on cool aerosol mist - n.p.o. continue IV fluids with dextrose slightly elevated sugar will change NovoLog sliding scale to moderate scale with Accu-Cheks every 6 hours - SP EGD- showed Esophagitis/Gastritis DW staff Subjective hx not possible: pt non-verbal Constitutional: requiring O2 Exam/Review of Systems Exam Vitals Vital Signs Date Temp Pulse Resp B/P (MAP) Pulse Ox O2 O2 Flow FiO2 Time Delivery Rate 04/26/19 99.3 99 18 152/67 97 07:14 (95) 04/26/19 5.0 28 03:58 04/25/19 Trach 17:12 Collar Intake and Output 04/25/19 04/25/19 04/26/19 1515:00 23:00 07:00 OutputOutput Total 450 ml 900 ml BalanceBalance -450 ml -900 ml Constitutional: non-verbal Psych: nl mood/affect Eyes: nl lids, nl sclera ENMT: nl external ears & nose Neck: non-tender, other (trach intact) Respiratory: clear to auscultation Cardiovascular: nl pulses, other (s1s2) Gastrointestinal: soft, non-tender, other (gt intact) Musculoskeletal: nl extremities to inspection Extremities: normal pulses Neurological: unresponsive Results Results 24hrs Laboratory Tests Test 04/25/19 11:58 04/25/19 17:54 04/25/19 23:48 04/26/19 05:45 Bedside Glucose 224 H 164 181 192 Test 04/26/19 06:25 04/26/19 07:02 Lab Scanned BLOOD TRANSFUSIO Report N White Blood Count 8.6 Red Blood Count 4.17 L Hemoglobin 10.1 L Hematocrit 33.8 L Mean Corpuscular 81.1 L Volume Mean Corpuscular 24.2 L Hemoglobin Mean Corpuscular 29.9 L Hemoglobin Concen t Red Cell 18.7 H Distribution Width Platelet Count 422 H Mean Platelet 10.0 Volume Immature 2.500 H Granulocytes % Neutrophils % 59.0 Lymphocytes % 27.7 Monocytes % 6.7 Eosinophils % 3.6 Basophils % 0.5 Nucleated Red 0.0 Blood Cells % Immature 0.210 H Granulocytes # Neutrophils # 5.1 Lymphocytes # 2.4 Monocytes # 0.6 Eosinophils # 0.3 Basophils # 0.0 Nucleated Red 0.0 Blood Cells # Sodium Level 142 Potassium Level 3.3 L Chloride Level 106 Carbon Dioxide 28 Level Anion Gap 8 Blood Urea 7 Nitrogen Creatinine 0.34 L Est Glomerular Filtrat Rate mL/min Glucose Level 192 Calcium Level 8.7 Medications Medication Current Medications Levetiracetam 100 ml @ 400 mls/hr Q12 IVPB Last administered on 04/26/19at 09:29; Admin Dose 400 MLS/HR; Start 04/21/19 at 21:00 Ondansetron HCl (Zofran Inj) 4 mg Q6H PRN IV NAUSEA AND/OR VOMITING; Start 04/21/19 at 13:00 Levalbuterol (Xopenex Neb) 0.63 mg Q2H RESP THERAPY PRN HHN WHEEZING AND SOB; Start 04/21/19 at 14:00 Diagnostic Test (Pha) (Accu-Chek) 1 ea 02 XX ; Start 04/22/19 at 02:00 Miscellaneous Information 1 ea NOTE XX ; Start 04/21/19 at 14:00 Glucose (Glutose) 15 gm Q15M PRN PO DECREASED GLUCOSE; Start 04/21/19 at 14:00 Glucose (Glutose) 22.5 gm Q15M PRN PO DECREASED GLUCOSE; Start 04/21/19 at 14:00 Dextrose (D50w Syringe) 25 ml Q15M PRN IV DECREASED GLUCOSE; Start 04/21/19 at 14:00 Dextrose (D50w Syringe) 50 ml Q15M PRN IV DECREASED GLUCOSE; Start 04/21/19 at 14:00 Glucagon (Glucagen) 1 mg Q15M PRN IM DECREASED GLUCOSE; Start 04/21/19 at 14:00 Glucose (Glutose) 15 gm Q15M PRN BUCCAL DECREASED GLUCOSE; Start 04/21/19 at 14:00 Collagenase (Santyl) 1 applic DAILY TOP Last administered on 04/26/19at 09:29; Admin Dose 1 APPLIC; Start 04/21/19 at 16:00 Collagenase (Santyl) 1 applic PRN PRN TOP PER WND CARE ORDERS-SACRUM; Start 04/21/19 at 14:30 Multivitamins (Multivitamin) 30 ml DAILY GTB Last administered on 04/26/19 09:27; Admin Dose 30 ML; Start 04/24/19 at 09:00 Potassium Chloride/Dextrose/ Sod Cl 1,000 ml @ 70 mls/hr [id number] IV Last administered on 04/26/19 02:04; Admin Dose 70 MLS/HR; Start 04/24/19 at 00:00 Meropenem/Sodium Chloride 50 ml @ 100 mls/hr Q12 IVPB Last administered on 04/26/19 09:29; Admin Dose 100 MLS/HR; Start 04/25/19 at 21:00 Fluconazole/ Sodium Chloride 50 ml @ 50 mls/hr Q24H IVPB ; Start 04/25/19 at 15:00 Nystatin (Nystatin Oint) 1 applic BID TOP Last administered on 04/26/19 09:29; Admin Dose 1 APPLIC; Start 04/25/19 at 21:00 Metoprolol Tartrate (Lopressor) 25 mg BID PO Last administered on 04/26/19 09:28; Admin Dose 25 MG; Start 04/25/19 at 14:00 Insulin Aspart (Novolog Insulin Pen) (Adult SC Insulin - Moder... Q6 SC Last administered on 04/26/19 06:03; Admin Dose 4 UNIT; Start 04/25/19 at 18:00 Lansoprazole (Prevacid) 30 mg BID@0600,1800 GTB Last administered on 04/26/19 05:49; Admin Dose 30 MG; Start 04/25/19 at 18:00 Potassium Chloride 100 ml @ 50 mls/hr ONCE ONCE IVPB ; Start 04/26/19 at 10:00; Stop 04/26/19 at 11:59 DWIGHT POOLE Apr 26, 2019 10:49
[2019-04-26 11:08] VITALS: BP 169/71; PULSE 79; RESP 18
--- NOTE | 2019-04-26 11:51 | CONS ---
Assessment/Plan Assessment/Plan Hospital Course (Demo Recall) No acute events patient is noncommunicative in no distress no fevers overnight Microbiology: Endotracheal aspirate growing staph aureus, urine culture grew yeast Indwelling's: trach, PEG Antimicrobials: Merrem, Diflucan Physical examination: This is a chronically ill-appearing elderly woman who is noncommunicative in no distress. Head atraumatic normocephalic sclera nonicteric neck is supple chest rise symmetrical breath sounds diminished bases heart S1-S2 abdomen obese soft bowel sounds hypoactive extremities contractured without cyanosis skin patient has unstageable chronic wound on her sacrum sacrum and necrotic wounds on the feet Assessment: 1. SIRS 2. UTI vs colonized 3. Tracheobronchitis 4. Chronic respiratory failure and dysphagia 5. Multiple chronic wounds 6. History of CVA 7. Acute on chronic anemia 8. Diabetes 9. Seizure disorder 10. GT site cellulitis Plan: Clinically unchanged, continue abx, topical antifungal to GT site Consultation Date/Type/Reason Admit Date/Time Apr 21, 2019 at 10:34 Initial Consult Date 04/22/19 Type of Consult id Requesting Provider: NICOLE BUCHANAN MD Date/Time of Note DATE: 04/26/19 TIME: 11:50 Exam/Review of Systems Exam Vitals Vital Signs Date Temp Pulse Resp B/P (MAP) Pulse Ox O2 O2 Flow FiO2 Time Delivery Rate 04/26/19 98.9 79 18 169/71 99 11:08 (103) 04/26/19 5.0 28 03:58 04/25/19 Trach 17:12 Collar Intake and Output 04/25/19 04/25/19 04/26/19 1515:00 23:00 07:00 OutputOutput Total 450 ml 900 ml BalanceBalance -450 ml -900 ml Results Result Diagram: 04/26/19 0702 04/26/19 0702 Results 24hrs Laboratory Tests Test 04/25/19 11:58 04/25/19 17:54 04/25/19 23:48 04/26/19 05:45 Bedside Glucose 224 H 164 181 192 Test 04/26/19 06:25 04/26/19 07:02 Lab Scanned BLOOD TRANSFUSIO Report N White Blood Count 8.6 Red Blood Count 4.17 L Hemoglobin 10.1 L Hematocrit 33.8 L Mean Corpuscular 81.1 L Volume Mean Corpuscular 24.2 L Hemoglobin Mean Corpuscular 29.9 L Hemoglobin Concen t Red Cell 18.7 H Distribution Width Platelet Count 422 H Mean Platelet 10.0 Volume Immature 2.500 H Granulocytes % Neutrophils % 59.0 Lymphocytes % 27.7 Monocytes % 6.7 Eosinophils % 3.6 Basophils % 0.5 Nucleated Red 0.0 Blood Cells % Immature 0.210 H Granulocytes # Neutrophils # 5.1 Lymphocytes # 2.4 Monocytes # 0.6 Eosinophils # 0.3 Basophils # 0.0 Nucleated Red 0.0 Blood Cells # Sodium Level 142 Potassium Level 3.3 L Chloride Level 106 Carbon Dioxide 28 Level Anion Gap 8 Blood Urea 7 Nitrogen Creatinine 0.34 L Est Glomerular Filtrat Rate mL/min Glucose Level 192 Calcium Level 8.7 Medications Medication Current Medications Levetiracetam 100 ml @ 400 mls/hr Q12 IVPB Last administered on 04/26/19at 09:29; Admin Dose 400 MLS/HR; Start 04/21/19 at 21:00 Ondansetron HCl (Zofran Inj) 4 mg Q6H PRN IV NAUSEA AND/OR VOMITING; Start 04/21/19 at 13:00 Levalbuterol (Xopenex Neb) 0.63 mg Q2H RESP THERAPY PRN HHN WHEEZING AND SOB; Start 04/21/19 at 14:00 Diagnostic Test (Pha) (Accu-Chek) 1 ea 02 XX ; Start 04/22/19 at 02:00 Miscellaneous Information 1 ea NOTE XX ; Start 04/21/19 at 14:00 Glucose (Glutose) 15 gm Q15M PRN PO DECREASED GLUCOSE; Start 04/21/19 at 14:00 Glucose (Glutose) 22.5 gm Q15M PRN PO DECREASED GLUCOSE; Start 04/21/19 at 14:00 Dextrose (D50w Syringe) 25 ml Q15M PRN IV DECREASED GLUCOSE; Start 04/21/19 at 14:00 Dextrose (D50w Syringe) 50 ml Q15M PRN IV DECREASED GLUCOSE; Start 04/21/19 at 14:00 Glucagon (Glucagen) 1 mg Q15M PRN IM DECREASED GLUCOSE; Start 04/21/19 at 14:00 Glucose (Glutose) 15 gm Q15M PRN BUCCAL DECREASED GLUCOSE; Start 04/21/19 at 14:00 Collagenase (Santyl) 1 applic DAILY TOP Last administered on 04/26/19 09:29; Admin Dose 1 APPLIC; Start 04/21/19 at 16:00 Collagenase (Santyl) 1 applic PRN PRN TOP PER WND CARE ORDERS-SACRUM; Start 04/21/19 at 14:30 Multivitamins (Multivitamin) 30 ml DAILY GTB Last administered on 04/26/19 09:27; Admin Dose 30 ML; Start 04/24/19 at 09:00 Potassium Chloride/Dextrose/ Sod Cl 1,000 ml @ 70 mls/hr [id number] IV Last administered on 04/26/19 02:04; Admin Dose 70 MLS/HR; Start 04/24/19 at 00:00 Meropenem/Sodium Chloride 50 ml @ 100 mls/hr Q12 IVPB Last administered on 04/26/19 09:29; Admin Dose 100 MLS/HR; Start 04/25/19 at 21:00 Fluconazole/ Sodium Chloride 50 ml @ 50 mls/hr Q24H IVPB ; Start 04/25/19 at 15:00 Nystatin (Nystatin Oint) 1 applic BID TOP Last administered on 04/26/19 09:29; Admin Dose 1 APPLIC; Start 04/25/19 at 21:00 Metoprolol Tartrate (Lopressor) 25 mg BID PO Last administered on 04/26/19 09:28; Admin Dose 25 MG; Start 04/25/19 at 14:00 Insulin Aspart (Novolog Insulin Pen) (Adult SC Insulin - Moder... Q6 SC Last administered on 04/26/19 06:03; Admin Dose 4 UNIT; Start 04/25/19 at 18:00 Lansoprazole (Prevacid) 30 mg BID@0600,1800 GTB Last administered on 04/26/19 05:49; Admin Dose 30 MG; Start 04/25/19 at 18:00 Potassium Chloride 100 ml @ 50 mls/hr ONCE ONCE IVPB Last administered on 04/26/19 11:02; Admin Dose 50 MLS/HR; Start 04/26/19 at 10:00; Stop 04/26/19 at 11:59 ANTHONY JOY NP Apr 26, 2019 11:50
--- NOTE | 2019-04-26 12:51 | CONS ---
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 HTN-labile and uncontrolled much of the time 8. Encephalopathy Recc: -Now on tele -Contineu abx's and f/u cx data -Continue keppra -Continue BB with slight increase and follow HR/BP clsoely Consultation Date/Type/Reason Admit Date/Time Apr 21, 2019 at 10:34 Initial Consult Date 04/22/19 Type of Consult Cardiology Reason for Consultation SVT Requesting Provider: NICOLE BUCHANAN MD Date/Time of Note DATE: 04/26/19 TIME: 12:45 Exam/Review of Systems Vital Signs Vitals Vital Signs Date Temp Pulse Resp B/P (MAP) Pulse Ox O2 O2 Flow FiO2 Time Delivery Rate 04/26/19 5.0 11:53 04/26/19 98.9 79 18 169/71 99 11:08 (103) 04/26/19 28 03:58 04/25/19 Trach 17:12 Collar Intake and Output 04/25/19 04/25/19 04/26/19 1515:00 23:00 07:00 OutputOutput Total 450 ml 900 ml BalanceBalance -450 ml -900 ml Exam Exam Review of Systems: CONSTITUTIONAL: No fevers, chills. PULMONARY: No sob CARDIOVASCULAR: No chest pain/palpitations GASTROINTESTINAL: No nausea/vomiting. GENITOURINARY: No hematuria/dysuria. MUSCULOSKELETAL: No myagias/arthalgias. PSYCHIATRIC: The patient denies depression. NEUROLOGIC: encephalopathic Constitutional: other (encephalopathic) Psych: no complaints ENMT: mucosa pink and moist Neck: supple, jvd (9 cm water) Respiratory: diminished breath sounds Cardiovascular: regular rate and rhythm Gastrointestinal: soft, non-tender Musculoskeletal: muscle weakness (generalized) Extremities: edema (none) Neurological: other (No focal deficits) Labs Result Diagram: 04/26/19 0702 04/26/19 0702 Results 24hrs Laboratory Tests Test 04/25/19 17:54 04/25/19 23:48 04/26/19 05:45 04/26/19 06:25 Bedside Glucose 164 181 192 Lab Scanned BLOOD TRANSFUSIO Report N Test 04/26/19 07:02 04/26/19 12:04 White Blood Count 8.6 Red Blood Count 4.17 L Hemoglobin 10.1 L Hematocrit 33.8 L Mean Corpuscular 81.1 L Volume Mean Corpuscular 24.2 L Hemoglobin Mean Corpuscular 29.9 L Hemoglobin Concen t Red Cell 18.7 H Distribution Width Platelet Count 422 H Mean Platelet 10.0 Volume Immature 2.500 H Granulocytes % Neutrophils % 59.0 Lymphocytes % 27.7 Monocytes % 6.7 Eosinophils % 3.6 Basophils % 0.5 Nucleated Red 0.0 Blood Cells % Immature 0.210 H Granulocytes # Neutrophils # 5.1 Lymphocytes # 2.4 Monocytes # 0.6 Eosinophils # 0.3 Basophils # 0.0 Nucleated Red 0.0 Blood Cells # Sodium Level 142 Potassium Level 3.3 L Chloride Level 106 Carbon Dioxide 28 Level Anion Gap 8 Blood Urea 7 Nitrogen Creatinine 0.34 L Est Glomerular Filtrat Rate mL/min Glucose Level 192 Calcium Level 8.7 Bedside Glucose 185 Medications Medications Current Medications Levetiracetam 100 ml @ 400 mls/hr Q12 IVPB Last administered on 04/26/19at 09:29; Admin Dose 400 MLS/HR; Start 04/21/19 at 21:00 Ondansetron HCl (Zofran Inj) 4 mg Q6H PRN IV NAUSEA AND/OR VOMITING; Start 04/21/19 at 13:00 Levalbuterol (Xopenex Neb) 0.63 mg Q2H RESP THERAPY PRN HHN WHEEZING AND SOB; Start 04/21/19 at 14:00 Diagnostic Test (Pha) (Accu-Chek) 1 ea 02 XX ; Start 04/22/19 at 02:00 Miscellaneous Information 1 ea NOTE XX ; Start 04/21/19 at 14:00 Glucose (Glutose) 15 gm Q15M PRN PO DECREASED GLUCOSE; Start 04/21/19 at 14:00 Glucose (Glutose) 22.5 gm Q15M PRN PO DECREASED GLUCOSE; Start 04/21/19 at 14:00 Dextrose (D50w Syringe) 25 ml Q15M PRN IV DECREASED GLUCOSE; Start 04/21/19 at 14:00 Dextrose (D50w Syringe) 50 ml Q15M PRN IV DECREASED GLUCOSE; Start 04/21/19 at 14:00 Glucagon (Glucagen) 1 mg Q15M PRN IM DECREASED GLUCOSE; Start 04/21/19 at 14:00 Glucose (Glutose) 15 gm Q15M PRN BUCCAL DECREASED GLUCOSE; Start 04/21/19 at 14:00 Collagenase (Santyl) 1 applic DAILY TOP Last administered on 04/26/19 09:29; Admin Dose 1 APPLIC; Start 04/21/19 at 16:00 Collagenase (Santyl) 1 applic PRN PRN TOP PER WND CARE ORDERS-SACRUM; Start 04/21/19 at 14:30 Multivitamins (Multivitamin) 30 ml DAILY GTB Last administered on 04/26/19 09:27; Admin Dose 30 ML; Start 04/24/19 at 09:00 Potassium Chloride/Dextrose/ Sod Cl 1,000 ml @ 70 mls/hr [id number] IV Last administered on 04/26/19 02:04; Admin Dose 70 MLS/HR; Start 04/24/19 at 00:00 Meropenem/Sodium Chloride 50 ml @ 100 mls/hr Q12 IVPB Last administered on 04/26/19 09:29; Admin Dose 100 MLS/HR; Start 04/25/19 at 21:00 Fluconazole/ Sodium Chloride 50 ml @ 50 mls/hr Q24H IVPB ; Start 04/25/19 at 1 5:00 Nystatin (Nystatin Oint) 1 applic BID TOP Last administered on 04/26/19 09:29; Admin Dose 1 APPLIC; Start 04/25/19 at 21:00 Metoprolol Tartrate (Lopressor) 25 mg BID PO Last administered on 04/26/19 09:28; Admin Dose 25 MG; Start 04/25/19 at 14:00 Insulin Aspart (Novolog Insulin Pen) (Adult SC Insulin - Moder... Q6 SC Last administered on 04/26/19 12:27; Admin Dose 4 UNIT; Start 04/25/19 at 18:00 Lansoprazole (Prevacid) 30 mg BID@0600,1800 GTB Last administered on 04/26/19 05:49; Admin Dose 30 MG; Start 04/25/19 at 18:00 JOSE M IRWIN Apr 26, 2019 12:51
[2019-04-26] MEDS: FLUCONAZOLE 100 MG/50 ML (PMX) 50 ML IVPB SCH (15:00)
[2019-04-26 16:32] VITALS: BP 154/69; PULSE 79; RESP 18
[2019-04-26 19:57] VITALS: BP 167/73; PULSE 98; RESP 19
[2019-04-26] MEDS: METOPROLOL 50 MG TAB PO SCH (20:39)
[2019-04-27] VITALS: BP 161/71; PULSE 84; RESP 19
[2019-04-27] MEDS: Insulin NOVOLOG SS MODERATE Algorithm(NPO/TPN/ENTERAL FEEDS) SC SCH ×4 (00:11→18:14)
[2019-04-27] MEDS: D5W-0.45 NACL + KCL 20 MEQ 1,000 ML IV SCH ×2 (01:50→14:59)
[2019-04-27] MEDS: ACCU-CHEK XX SCH (02:00)
[2019-04-27 04:00] VITALS: BP 150/68; PULSE 97; RESP 19
[2019-04-27] MEDS: LANSOPRAZOLE 30 MG CAP GTB SCH ×2 (05:41→17:49)
[2019-04-27 07:23] VITALS: BP 125/78; PULSE 100; RESP 18
[2019-04-27] MEDS: NYSTATIN 15 GM OINT TOP SCH ×3 (09:00→20:42)
[2019-04-27] MEDS: MEROPENEM 1 GM/50ML(PMX) 50 ML IVPB SCH ×2 (09:30→21:14)
[2019-04-27] MEDS: METOPROLOL 50 MG TAB PO SCH ×2 (09:31→20:41)
[2019-04-27] MEDS: MULTIVITAMINS 30 ML CUP GTB SCH (09:31)
[2019-04-27] MEDS: COLLAGENASE 5 GM (UD JAR) TOP SCH (09:31)
[2019-04-27] MEDS: LEVETIRACETAM 500 MG (PMX) 100 ML IVPB SCH ×2 (09:34→20:37)
--- NOTE | 2019-04-27 11:03 | PN ---
Date/Time of Note Date/Time of Note DATE: 04/27/19 TIME: 11:02 Assessment/Plan VTE Prophylaxis Risk [place] [facility] [place] risk: 10 SCD applied [place]from [facility] [place] Yes Pharmacological prophylaxis: NA/contraindicated Pharm contraindication: bleeding Lines/Catheters IV Catheter Type (from [facility]): PICC Line Central line still needed: Yes Urinary Cath still in place: Yes Reason Cath still needed: skin wounds contaminated by urine Assessment/Plan Hospital Course - Hypokalemia- replace K; am BMP - GI bleed - Dr. Prieto is following in gastroenterology consultation. - Continue n.p.o., IV fluids. - SP EGD- showed Esophagitis/Gastritis - Possible sepsis. Continue antibiotics per ID. Dr. Mcmullen is following in infection disease consultation. - Tracheobronchitis versus early pneumonia - Ventilator dependent respiratory failure. Dr. De La Torre is following in pulmonology consultation - Hypertension. Continue Norvasc and losartan. - Diabetes. Continue Lantus and sliding scale insulin in addition to metformin. - Seizure disorder, continue Keppra. - Anemia multifactorial chronic disease and possible acute blood loss. - Hx of CVA, continue Plavix. - Multiple pressure ulcers continue wound care per wound care consult, off loading, air mattress, optimize nutrition. Result Diagram: 04/27/19 0652 04/27/19 0652 Results 24hrs Laboratory Tests Test 04/26/19 12:04 04/26/19 23:56 04/27/19 05:45 04/27/19 06:52 Bedside Glucose 185 176 205 White Blood Count 10.0 Red Blood Count 4.40 Hemoglobin 10.6 L Hematocrit 36.2 L Mean Corpuscular 82.3 Volume Mean Corpuscular 24.1 L Hemoglobin Mean Corpuscular 29.3 L Hemoglobin Concent Red Cell 18.6 H Distribution Width Platelet Count 464 H Mean Platelet Volume 10.0 Immature 2.000 H Granulocytes % Neutrophils % 59.3 Lymphocytes % 28.4 Monocytes % 6.1 Eosinophils % 3.8 Basophils % 0.4 Nucleated Red Blood 0.0 Cells % Immature 0.200 H Granulocytes # Neutrophils # 5.9 Lymphocytes # 2.8 Monocytes # 0.6 Eosinophils # 0.4 Basophils # 0.0 Nucleated Red Blood 0.0 Cells # Sodium Level 143 Potassium Level 3.5 Chloride Level 103 Carbon Dioxide Level 29 Anion Gap 11 Blood Urea Nitrogen 10 Creatinine 0.36 L Est Glomerular Filtrat Rate mL/min Glucose Level 192 Calcium Level 9.0 Subjective 24 Hr Interval Summary Free Text/Dictation Patient denies any pain, doing well Exam/Review of Systems Exam Vitals Vital Signs Date Temp Pulse Resp B/P (MAP) Pulse Ox O2 O2 Flow FiO2 Time Delivery Rate 04/27/19 98.6 100 18 125/78 97 07:23 (94) 04/27/19 Aerosol 5.0 28 00:02 T Tube Intake and Output 04/26/19 04/26/19 04/27/19 1515:00 23:00 07:00 IntakeIntake Total 240 ml 1625 ml OutputOutput Total 700 ml 1000 ml BalanceBalance 240 ml 925 ml -1000 ml Constitutional: well developed Head: normocephalic, atraumatic Neck: supple Respiratory: diminished breath sounds Cardiovascular: regular rate and rhythm Gastrointestinal: soft, non-tender Extremities: normal pulses Results Results 24hrs Laboratory Tests Test 04/26/19 12:04 04/26/19 23:56 04/27/19 05:45 04/27/19 06:52 Bedside Glucose 185 176 205 White Blood Count 10.0 Red Blood Count 4.40 Hemoglobin 10.6 L Hematocrit 36.2 L Mean Corpuscular 82.3 Volume Mean Corpuscular 24.1 L Hemoglobin Mean Corpuscular 29.3 L Hemoglobin Concent Red Cell 18.6 H Distribution Width Platelet Count 464 H Mean Platelet Volume 10.0 Immature 2.000 H Granulocytes % Neutrophils % 59.3 Lymphocytes % 28.4 Monocytes % 6.1 Eosinophils % 3.8 Basophils % 0.4 Nucleated Red Blood 0.0 Cells % Immature 0.200 H Granulocytes # Neutrophils # 5.9 Lymphocytes # 2.8 Monocytes # 0.6 Eosinophils # 0.4 Basophils # 0.0 Nucleated Red Blood 0.0 Cells # Sodium Level 143 Potassium Level 3.5 Chloride Level 103 Carbon Dioxide Level 29 Anion Gap 11 Blood Urea Nitrogen 10 Creatinine 0.36 L Est Glomerular Filtrat Rate mL/min Glucose Level 192 Calcium Level 9.0 Medications Medication Current Medications Levetiracetam 100 ml @ 400 mls/hr Q12 IVPB Last administered on 04/27/19at 09:34; Admin Dose 400 MLS/HR; Start 04/21/19 at 21:00 Ondansetron HCl (Zofran Inj) 4 mg Q6H PRN IV NAUSEA AND/OR VOMITING; Start 04/21/19 at 13:00 Levalbuterol (Xopenex Neb) 0.63 mg Q2H RESP THERAPY PRN HHN WHEEZING AND SOB; Start 04/21/19 at 14:00 Diagnostic Test (Pha) (Accu-Chek) 1 ea 02 XX ; Start 04/22/19 at 02:00 Miscellaneous Information 1 ea NOTE XX ; Start 04/21/19 at 14:00 Glucose (Glutose) 15 gm Q15M PRN PO DECREASED GLUCOSE; Start 04/21/19 at 14:00 Glucose (Glutose) 22.5 gm Q15M PRN PO DECREASED GLUCOSE; Start 04/21/19 at 14:00 Dextrose (D50w Syringe) 25 ml Q15M PRN IV DECREASED GLUCOSE; Start 04/21/19 at 14:00 Dextrose (D50w Syringe) 50 ml Q15M PRN IV DECREASED GLUCOSE; Start 04/21/19 at 14:00 Glucagon (Glucagen) 1 mg Q15M PRN IM DECREASED GLUCOSE; Start 04/21/19 at 14:00 Glucose (Glutose) 15 gm Q15M PRN BUCCAL DECREASED GLUCOSE; Start 04/21/19 at 14:00 Collagenase (Santyl) 1 applic DAILY TOP Last administered on 04/27/19at 09:31; Admin Dose 1 APPLIC; Start 04/21/19 at 16:00 Collagenase (Santyl) 1 applic PRN PRN TOP PER WND CARE ORDERS-SACRUM; Start 04/21/19 at 14:30 Multivitamins (Multivitamin) 30 ml DAILY GTB Last administered on 04/27/19at 09:31; Admin Dose 30 ML; Start 04/24/19 at 09:00 Potassium Chloride/Dextrose/ Sod Cl 1,000 ml @ 70 mls/hr [id number] IV Last administered on 04/27/19at 01:50; Admin Dose 70 MLS/HR; Start 04/24/19 at 00:00 Meropenem/Sodium Chloride 50 ml @ 100 mls/hr Q12 IVPB Last administered on 04/27/19at 09:30; Admin Dose 100 MLS/HR; Start 04/25/19 at 21:00 Fluconazole/ Sodium Chloride 50 ml @ 50 mls/hr Q24H IVPB Last administered on 04/26/19at 15:00; Admin Dose 50 MLS/HR; Start 04/25/19 at 15:00 Nystatin (Nystatin Oint) 1 applic BID TOP Last administered on 04/27/19 09:33; Admin Dose 1 APPLIC; Start 04/25/19 at 21:00 Insulin Aspart (Novolog Insulin Pen) (Adult SC Insulin - Moder... Q6 SC Last administered on 04/27/19 05:57; Admin Dose 4 UNIT; Start 04/25/19 at 18:00 Lansoprazole (Prevacid) 30 mg BID@0600,1800 GTB Last administered on 04/27/19 05:41; Admin Dose 30 MG; Start 04/25/19 at 18:00 Metoprolol Tartrate (Lopressor) 50 mg BID PO Last administered on 04/27/19 09:31; Admin Dose 50 MG; Start 04/26/19 at 21:00 Clonidine (Catapres) 0.1 mg Q6H PRN GTB ELEVATED BLOOD PRESSURE; Start 04/26/19 at 22:00 BRYANT DEVI Apr 27, 2019 11:03
[2019-04-27 11:07] VITALS: BP 149/67; PULSE 88; RESP 18
[2019-04-27] MEDS: FLUCONAZOLE 100 MG/50 ML (PMX) 50 ML IVPB SCH (14:58)
[2019-04-27 15:04] VITALS: BP 160/72; PULSE 99; RESP 18
--- NOTE | 2019-04-27 15:04 | CONS ---
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 Last recurrence self limited 04/26 3.resp failure chronic s/p trach 4.DM 5.dysphagia s/p G tube 6.GIB 7. HTN-labile and uncontrolled much of the time 8. Encephalopathy Recc: -Now on tele -Contineu abx's and f/u cx data -Continue keppra -Continue BB at current dose with reasonable BP/HR control Consultation Date/Type/Reason Admit Date/Time Apr 21, 2019 at 10:34 Initial Consult Date 04/22/19 Type of Consult Cardiology Reason for Consultation SVT Requesting Provider: NICOLE BUCHANAN MD Date/Time of Note DATE: 04/27/19 TIME: 15:02 Exam/Review of Systems Vital Signs Vitals Vital Signs Date Temp Pulse Resp B/P (MAP) Pulse Ox O2 O2 Flow FiO2 Time Delivery Rate 04/27/19 98.0 88 18 149/67 97 11:07 (94) 04/27/19 5.0 07:40 04/27/19 Aerosol 28 00:02 T Tube Intake and Output 04/26/19 04/26/19 04/27/19 1515:00 23:00 07:00 IntakeIntake Total 240 ml 1625 ml OutputOutput Total 700 ml 1000 ml BalanceBalance 240 ml 925 ml -1000 ml Exam Exam Review of Systems: CONSTITUTIONAL: No fevers, chills. PULMONARY: No sob CARDIOVASCULAR: No chest pain/palpitations GASTROINTESTINAL: No nausea/vomiting. GENITOURINARY: No hematuria/dysuria. MUSCULOSKELETAL: No myagias/arthalgias. PSYCHIATRIC: The patient denies depression. NEUROLOGIC: No weakness Constitutional: other (encephalopathic) Psych: no complaints Head: normocephalic ENMT: mucosa pink and moist Neck: supple, jvd (9 cm water) Respiratory: diminished breath sounds Cardiovascular: regular rate and rhythm Gastrointestinal: soft, non-tender Musculoskeletal: muscle weakness (generalized) Extremities: edema (none) Neurological: unresponsive Labs Result Diagram: 04/27/19 0652 04/27/19 0652 Results 24hrs Laboratory Tests Test 04/26/19 23:56 04/27/19 05:45 04/27/19 06:52 04/27/19 12:39 Bedside Glucose 176 205 226 H White Blood Count 10.0 Red Blood Count 4.40 Hemoglobin 10.6 L Hematocrit 36.2 L Mean Corpuscular 82.3 Volume Mean Corpuscular 24.1 L Hemoglobin Mean Corpuscular 29.3 L Hemoglobin Concent Red Cell 18.6 H Distribution Width Platelet Count 464 H Mean Platelet Volume 10.0 Immature 2.000 H Granulocytes % Neutrophils % 59.3 Lymphocytes % 28.4 Monocytes % 6.1 Eosinophils % 3.8 Basophils % 0.4 Nucleated Red Blood 0.0 Cells % Immature 0.200 H Granulocytes # Neutrophils # 5.9 Lymphocytes # 2.8 Monocytes # 0.6 Eosinophils # 0.4 Basophils # 0.0 Nucleated Red Blood 0.0 Cells # Sodium Level 143 Potassium Level 3.5 Chloride Level 103 Carbon Dioxide Level 29 Anion Gap 11 Blood Urea Nitrogen 10 Creatinine 0.36 L Est Glomerular Filtrat Rate mL/min Glucose Level 192 Calcium Level 9.0 Medications Medications Current Medications Levetiracetam 100 ml @ 400 mls/hr Q12 IVPB Last administered on 04/27/19at 09:34; Admin Dose 400 MLS/HR; Start 04/21/19 at 21:00 Ondansetron HCl (Zofran Inj) 4 mg Q6H PRN IV NAUSEA AND/OR VOMITING; Start at 13:00 Levalbuterol (Xopenex Neb) 0.63 mg Q2H RESP THERAPY PRN HHN WHEEZING AND SOB; Start 04/21/19 at 14:00 Diagnostic Test (Pha) (Accu-Chek) 1 ea 02 XX ; Start 04/22/19 at 02:00 Miscellaneous Information 1 ea NOTE XX ; Start 04/21/19 at 14:00 Glucose (Glutose) 15 gm Q15M PRN PO DECREASED GLUCOSE; Start 04/21/19 at 14:00 Glucose (Glutose) 22.5 gm Q15M PRN PO DECREASED GLUCOSE; Start 04/21/19 at 14:00 Dextrose (D50w Syringe) 25 ml Q15M PRN IV DECREASED GLUCOSE; Start 04/21/19 at 14:00 Dextrose (D50w Syringe) 50 ml Q15M PRN IV DECREASED GLUCOSE; Start 04/21/19 at 14:00 Glucagon (Glucagen) 1 mg Q15M PRN IM DECREASED GLUCOSE; Start 04/21/19 at 14:00 Glucose (Glutose) 15 gm Q15M PRN BUCCAL DECREASED GLUCOSE; Start 04/21/19 at 14:00 Collagenase (Santyl) 1 applic DAILY TOP Last administered on 04/27/19 09:31; Admin Dose 1 APPLIC; Start 04/21/19 at 16:00 Collagenase (Santyl) 1 applic PRN PRN TOP PER WND CARE ORDERS-SACRUM; Start 04/21/19 at 14:30 Multivitamins (Multivitamin) 30 ml DAILY GTB Last administered on 04/27/19 09:31; Admin Dose 30 ML; Start 04/24/19 at 09:00 Potassium Chloride/Dextrose/ Sod Cl 1,000 ml @ 70 mls/hr [id number] IV Last administered on 04/27/19 14:59; Admin Dose 70 MLS/HR; Start 04/24/19 at 00:00 Meropenem/Sodium Chloride 50 ml @ 100 mls/hr Q12 IVPB Last administered on 04/27/19 09:30; Admin Dose 100 MLS/HR; Start 04/25/19 at 21:00 Fluconazole/ Sodium Chloride 50 ml @ 50 mls/hr Q24H IVPB Last administered on 04/27/19 14:58; Admin Dose 50 MLS/HR; Start 04/25/19 at 15:00 Nystatin (Nystatin Oint) 1 applic BID TOP Last administered on 04/27/19 09:33; Admin Dose 1 APPLIC; Start 04/25/19 at 21:00 Insulin Aspart (Novolog Insulin Pen) (Adult SC Insulin - Moder... Q6 SC Last administered on 04/27/19 12:44; Admin Dose 6 UNIT; Start 04/25/19 at 18:00 Lansoprazole (Prevacid) 30 mg BID@0600,1800 GTB Last administered on 04/27/19 05:41; Admin Dose 30 MG; Start 04/25/19 at 18:00 Metoprolol Tartrate (Lopressor) 50 mg BID PO Last administered on 04/27/19 09:31; Admin Dose 50 MG; Start 04/26/19 at 21:00 Clonidine (Catapres) 0.1 mg Q6H PRN GTB ELEVATED BLOOD PRESSURE; Start 04/26/19 at 22:00 JOSE M IRWIN Apr 27, 2019 15:04
--- NOTE | 2019-04-27 15:16 | PN ---
DATE: 04/27/2019 SUBJECTIVE: Chart reviewed. No significant events noted. The patient on 28% FIO2 via tracheostomy, saturating 98% and does not appear in acute distress. PHYSICAL EXAMINATION: VITAL SIGNS: Blood pressure 149/67, pulse 88, respiration 18, temperature 98. HEENT: Pupils are equal and react to light. NECK: Supple, no JVD noted, no cervical adenopathy noted. LUNGS: Few scattered rhonchi. CARDIOVASCULAR: S1, S2 normal. ABDOMEN: Soft, nontender. No organomegaly or masses noted. EXTREMITIES: No clubbing or cyanosis noted. NEUROLOGICAL: Encephalopathic. LABORATORY DATA: WBC 10, hemoglobin 10.6, hematocrit 36.2, platelets 464. Sodium 143, potassium 3.5 , chloride 103, CO2 29, BUN 10, creatinine 0.36, glucose 192. IMPRESSION: 1. Chronic respiratory failure, tracheostomy dependent. 2. Status post sepsis with sacral decubiti infected. 3. Possible pneumonia. 4. Advise encephalopathy. 5. Anemia. 6. Hypertension. 7. Diabetes. 8. Seizure disorder. 9. Dysphagia. RECOMMENDATIONS: 1. Continue tracheostomy care and oxygen. 2. Continue antibiotics per ID. 3. Nutritional support. 4. Wound care. 5. Followup labs. Dictated By: EVELYN CHRISTIANSON MD, MA/ERENDIRA Conf#: [id number] DID#: [id number] CC: NICOLE BUCHANAN MD;*EndCC*
--- NOTE | 2019-04-27 16:48 | CONS ---
Consultation Date/Type/Reason Admit Date/Time Apr 21, 2019 at 10:34 Initial Consult Date 04/22/19 Type of Consult SUBJECTIVE: Patient is noncommunicative. afebrile. VS: stable T: 98.4 LABS: reviewed. WBC- 10.0 Microbiology: Endotracheal aspirate growing staph aureus, urine culture grew yeast Indwelling's: trach, PEG Antimicrobials: Merrem, Diflucan Physical examination: GEN: This is a chronically ill-appearing elderly woman who is noncommunicative in no distress. HENT: Head atraumatic normocephalic sclera nonicteric; neck is supple PULM: chest rise symmetrical breath sounds diminished bases Heart: S1-S2 Abdomen: obese, soft, bowel sounds hypoactive Extremities contractured without cyanosis Skin: unstageable chronic wound on her sacrum sacrum and necrotic wounds on the feet Assessment: 1. SIRS 2. UTI vs colonized 3. Tracheobronchitis 4. Chronic respiratory failure and dysphagia 5. Multiple chronic wounds 6. History of CVA 7. Acute on chronic anemia 8. Diabetes 9. Seizure disorder 10. GT site cellulitis Plan: Pt is clinically unchanged. Will continue current abx, and topical antifungal to GT site. Requesting Provider: NICOLE BUCHANAN MD Date/Time of Note DATE: 04/27/19 TIME: 16:44 Exam/Review of Systems Exam Vitals Vital Signs Date Temp Pulse Resp B/P (MAP) Pulse Ox O2 O2 Flow FiO2 Time Delivery Rate 04/27/19 98.4 99 18 160/72 99 15:04 (101) 04/27/19 5.0 28 13:40 04/27/19 Aerosol 00:02 T Tube Intake and Output 04/26/19 04/26/19 04/27/19 1515:00 23:00 07:00 IntakeIntake Total 240 ml 1625 ml OutputOutput Total 700 ml 1000 ml BalanceBalance 240 ml 925 ml -1000 ml Results Result Diagram: 04/27/19 0652 04/27/19 0652 Results 24hrs Laboratory Tests Test 04/26/19 23:56 04/27/19 05:45 04/27/19 06:52 04/27/19 12:39 Bedside Glucose 176 205 226 H White Blood Count 10.0 Red Blood Count 4.40 Hemoglobin 10.6 L Hematocrit 36.2 L Mean Corpuscular 82.3 Volume Mean Corpuscular 24.1 L Hemoglobin Mean Corpuscular 29.3 L Hemoglobin Concent Red Cell 18.6 H Distribution Width Platelet Count 464 H Mean Platelet Volume 10.0 Immature 2.000 H Granulocytes % Neutrophils % 59.3 Lymphocytes % 28.4 Monocytes % 6.1 Eosinophils % 3.8 Basophils % 0.4 Nucleated Red Blood 0.0 Cells % Immature 0.200 H Granulocytes # Neutrophils # 5.9 Lymphocytes # 2.8 Monocytes # 0.6 Eosinophils # 0.4 Basophils # 0.0 Nucleated Red Blood 0.0 Cells # Sodium Level 143 Potassium Level 3.5 Chloride Level 103 Carbon Dioxide Level 29 Anion Gap 11 Blood Urea Nitrogen 10 Creatinine 0.36 L Est Glomerular Filtrat Rate mL/min Glucose Level 192 Calcium Level 9.0 Medications Medication Current Medications Levetiracetam 100 ml @ 400 mls/hr Q12 IVPB Last administered on 04/27/19at 09:34; Admin Dose 400 MLS/HR; Start 04/21/19 at 21:00 Ondansetron HCl (Zofran Inj) 4 mg Q6H PRN IV NAUSEA AND/OR VOMITING; Start 04/21/19 at 13:00 Levalbuterol (Xopenex Neb) 0.63 mg Q2H RESP THERAPY PRN HHN WHEEZING AND SOB; Start 04/21/19 at 14:00 Diagnostic Test (Pha) (Accu-Chek) 1 ea 02 XX ; Start 04/22/19 at 02:00 Miscellaneous Information 1 ea NOTE XX ; Start 04/21/19 at 14:00 Glucose (Glutose) 15 gm Q15M PRN PO DECREASED GLUCOSE; Start 04/21/19 at 14:00 Glucose (Glutose) 22.5 gm Q15M PRN PO DECREASED GLUCOSE; Start 04/21/19 at 14:00 Dextrose (D50w Syringe) 25 ml Q15M PRN IV DECREASED GLUCOSE; Start 04/21/19 at 14:00 Dextrose (D50w Syringe) 50 ml Q15M PRN IV DECREASED GLUCOSE; Start 04/21/19 at 14:00 Glucagon (Glucagen) 1 mg Q15M PRN IM DECREASED GLUCOSE; Start 04/21/19 at 14:00 Glucose (Glutose) 15 gm Q15M PRN BUCCAL DECREASED GLUCOSE; Start 04/21/19 at 14:00 Collagenase (Santyl) 1 applic DAILY TOP Last administered on 04/27/19 09:31; Admin Dose 1 APPLIC; Start 04/21/19 at 16:00 Collagenase (Santyl) 1 applic PRN PRN TOP PER WND CARE ORDERS-SACRUM; Start 04/21/19 at 14:30 Multivitamins (Multivitamin) 30 ml DAILY GTB Last administered on 04/27/19 09:31; Admin Dose 30 ML; Start 04/24/19 at 09:00 Potassium Chloride/Dextrose/ Sod Cl 1,000 ml @ 70 mls/hr [id number] IV Last administered on 04/27/19 14:59; Admin Dose 70 MLS/HR; Start 04/24/19 at 00:00 Meropenem/Sodium Chloride 50 ml @ 100 mls/hr Q12 IVPB Last administered on 04/27/19 09:30; Admin Dose 100 MLS/HR; Start 04/25/19 at 21:00 Fluconazole/ Sodium Chloride 50 ml @ 50 mls/hr Q24H IVPB Last administered on 04/27/19 14:58; Admin Dose 50 MLS/HR; Start 04/25/19 at 15:00 Nystatin (Nystatin Oint) 1 applic BID TOP Last administered on 04/27/19 09:33; Admin Dose 1 APPLIC; Start 04/25/19 at 21:00 Insulin Aspart (Novolog Insulin Pen) (Adult SC Insulin - Moder... Q6 SC Last administered on 04/27/19 12:44; Admin Dose 6 UNIT; Start 04/25/19 at 18:00 Lansoprazole (Prevacid) 30 mg BID@0600,1800 GTB Last administered on 04/27/19 05:41; Admin Dose 30 MG; Start 04/25/19 at 18:00 Metoprolol Tartrate (Lopressor) 50 mg BID PO Last administered on 04/27/19 09:31; Admin Dose 50 MG; Start 04/26/19 at 21:00 Clonidine (Catapres) 0.1 mg Q6H PRN GTB ELEVATED BLOOD PRESSURE; Start 04/26/19 at 22:00 MATILDE HELLER Apr 27, 2019 16:48
[2019-04-27 20:00] VITALS: BP 159/70; PULSE 92; RESP 18
[2019-04-28] VITALS (8 sets, daily range): BP systolic 135–185; BP diastolic 62–80; PULSE 83–101; RESP 18
[2019-04-28] MEDS: Insulin NOVOLOG SS MODERATE Algorithm(NPO/TPN/ENTERAL FEEDS) SC SCH ×5 (00:08→23:48)
[2019-04-28] MEDS: ACCU-CHEK XX SCH (02:00)
[2019-04-28] MEDS: D5W-0.45 NACL + KCL 20 MEQ 1,000 ML IV SCH ×2 (04:06→14:52)
[2019-04-28] MEDS: LANSOPRAZOLE 30 MG CAP GTB SCH ×2 (05:29→17:59)
[2019-04-28] MEDS: MULTIVITAMINS 30 ML CUP GTB SCH (08:51)
[2019-04-28] MEDS: LEVETIRACETAM 500 MG (PMX) 100 ML IVPB SCH ×2 (08:51→21:08)
[2019-04-28] MEDS: MEROPENEM 1 GM/50ML(PMX) 50 ML IVPB SCH ×2 (08:51→21:47)
[2019-04-28] MEDS: METOPROLOL 50 MG TAB PO SCH ×2 (08:51→21:09)
[2019-04-28] MEDS: COLLAGENASE 5 GM (UD JAR) TOP SCH (08:51)
[2019-04-28] MEDS: NYSTATIN 15 GM OINT TOP SCH ×2 (08:52→21:10)
--- NOTE | 2019-04-28 10:38 | PN ---
Date/Time of Note Date/Time of Note DATE: 04/28/19 TIME: 10:37 Assessment/Plan VTE Prophylaxis Risk score (from Ns)>0 risk: 10 SCD applied (from Ns): Yes Pharmacological prophylaxis: LMWH Lines/Catheters IV Catheter Type (from Nrs): PICC Line Central line still needed: Yes Urinary Cath still in place: Yes Reason Cath still needed: skin wounds contaminated by urine Assessment/Plan Hospital Course - Hypokalemia- replace K; am BMP - GI bleed - Dr. Prieto is following in gastroenterology consultation. - Continue n.p.o., IV fluids. - SP EGD- showed Esophagitis/Gastritis - Possible sepsis. Continue antibiotics per ID. Dr. Mcmullen is following in infection disease consultation. - Tracheobronchitis versus early pneumonia - Ventilator dependent respiratory failure. Dr. De La Torre is following in pulmonology consultation - Hypertension. Continue Norvasc and losartan. - Diabetes. Continue Lantus and sliding scale insulin in addition to metformin. - Seizure disorder, continue Keppra. - Anemia multifactorial chronic disease and possible acute blood loss. - Hx of CVA, continue Plavix. - Multiple pressure ulcers continue wound care per wound care consult, offloading, air mattress, optimize nutrition. Result Diagram: 04/27/19 0652 04/27/19 0652 Results 24hrs Laboratory Tests Test 04/27/19 12:39 04/27/19 17:47 04/28/19 00:02 04/28/19 05:27 Bedside Glucose 226 H 229 H 199 210 Subjective 24 Hr Interval Summary Free Text/Dictation Patient resting comfortably, not responsive to voice or touch Exam/Review of Systems Exam Vitals Vital Signs Date Temp Pulse Resp B/P (MAP) Pulse Ox O2 O2 Flow FiO2 Time Delivery Rate 04/28/19 98 20 98 Aerosol 5.0 28 08:43 T Tube 04/28/19 98.0 136/70 07:28 (92) Intake and Output 04/27/19 04/27/19 04/28/19 1515:00 23:00 07:00 IntakeIntake Total 1585 ml 50 ml 735 ml OutputOutput Total 800 ml 1200 ml BalanceBalance 1585 ml -750 ml -465 ml Constitutional: well developed Head: normocephalic, atraumatic Neck: supple Respiratory: diminished breath sounds Cardiovascular: regular rate and rhythm Gastrointestinal: soft, non-tender Extremities: normal pulses Results Results 24hrs Laboratory Tests Test 04/27/19 12:39 04/27/19 17:47 04/28/19 00:02 04/28/19 05:27 Bedside Glucose 226 H 229 H 199 210 Medications Medication Current Medications Levetiracetam 100 ml @ 400 mls/hr Q12 IVPB Last administered on 04/28/19at 08:51; Admin Dose 400 MLS/HR; Start 04/21/19 at 21:00 Ondansetron HCl (Zofran Inj) 4 mg Q6H PRN IV NAUSEA AND/OR VOMITING; Start 04/21/19 at 13:00 Levalbuterol (Xopenex Neb) 0.63 mg Q2H RESP THERAPY PRN HHN WHEEZING AND SOB; Start 04/21/19 at 14:00 Diagnostic Test (Pha) (Accu-Chek) 1 ea 02 XX ; Start 04/22/19 at 02:00 Miscellaneous Information 1 ea NOTE XX ; Start 04/21/19 at 14:00 Glucose (Glutose) 15 gm Q15M PRN PO DECREASED GLUCOSE; Start 04/21/19 at 14:00 Glucose (Glutose) 22.5 gm Q15M PRN PO DECREASED GLUCOSE; Start 04/21/19 at 14:00 Dextrose (D50w Syringe) 25 ml Q15M PRN IV DECREASED GLUCOSE; Start 04/21/19 at 14:00 Dextrose (D50w Syringe) 50 ml Q15M PRN IV DECREASED GLUCOSE; Start 04/21/19 at 14:00 Glucagon (Glucagen) 1 mg Q15M PRN IM DECREASED GLUCOSE; Start 04/21/19 at 14:00 Glucose (Glutose) 15 gm Q15M PRN BUCCAL DECREASED GLUCOSE; Start 04/21/19 at 14:00 Collagenase (Santyl) 1 applic DAILY TOP Last administered on 04/28/19at 08:51; Admin Dose 1 APPLIC; Start 04/21/19 at 16:00 Collagenase (Santyl) 1 applic PRN PRN TOP PER WND CARE ORDERS-SACRUM; Start 04/21/19 at 14:30 Multivitamins (Multivitamin) 30 ml DAILY GTB Last administered on 04/28/19at 08:51; Admin Dose 30 ML; Start 04/24/19 at 09:00 Potassium Chloride/Dextrose/ Sod Cl 1,000 ml @ 70 mls/hr [id number] IV Last administered on 04/27/19 14:59; Admin Dose 70 MLS/HR; Start 04/24/19 at 00:00 Meropenem/Sodium Chloride 50 ml @ 100 mls/hr Q12 IVPB Last administered on 04/28/19 08:51; Admin Dose 100 MLS/HR; Start 04/25/19 at 21:00 Fluconazole/ Sodium Chloride 50 ml @ 50 mls/hr Q24H IVPB Last administered on 04/27/19 14:58; Admin Dose 50 MLS/HR; Start 04/25/19 at 15:00 Nystatin (Nystatin Oint) 1 applic BID TOP Last administered on 04/28/19 08:52; Admin Dose 1 APPLIC; Start 04/25/19 at 21:00 Insulin Aspart (Novolog Insulin Pen) (Adult SC Insulin - Moder... Q6 SC Last administered on 04/28/19 05:38; Admin Dose 4 UNIT; Start 04/25/19 at 18:00 Lansoprazole (Prevacid) 30 mg BID@0600,1800 GTB Last administered on 04/28/19 05:29; Admin Dose 30 MG; Start 04/25/19 at 18:00 Metoprolol Tartrate (Lopressor) 50 mg BID PO Last administered on 04/28/19 08:51; Admin Dose 50 MG; Start 04/26/19 at 21:00 Clonidine (Catapres) 0.1 mg Q6H PRN GTB ELEVATED BLOOD PRESSURE; Start 04/26/19 at 22:00 BRYANT DEVI Apr 28, 2019 10:38
--- NOTE | 2019-04-28 12:33 | CONS ---
Consultation Date/Type/Reason Admit Date/Time Apr 21, 2019 at 10:34 Initial Consult Date 04/22/19 Type of Consult SUBJECTIVE: Patient is noncommunicative. afebrile. No acute events over night. VS: stable T: 98.6 LABS: reviewed. Microbiology: Endotracheal aspirate growing staph aureus, urine culture grew yeast Indwelling's: trach, PEG Antimicrobials: Merrem, Diflucan Physical examination: GEN: This is a chronically ill-appearing elderly woman who is noncommunicative in no distress. HENT: Head atraumatic normocephalic sclera nonicteric; neck is supple PULM: chest rise symmetrical breath sounds diminished bases Heart: S1-S2 Abdomen: obese, soft, bowel sounds hypoactive Extremities contractured without cyanosis Skin: unstageable chronic wound on her sacrum sacrum and necrotic wounds on the feet Assessment: 1. SIRS 2. UTI vs colonized 3. Tracheobronchitis 4. Chronic respiratory failure and dysphagia 5. Multiple chronic wounds 6. History of CVA 7. Acute on chronic anemia 8. Diabetes 9. Seizure disorder 10. GT site cellulitis Plan: Pt is clinically unchanged. Will continue current abx, and topical antifungal to GT site. Requesting Provider: NICOLE BUCHANAN MD Date/Time of Note DATE: 04/28/19 TIME: 12:32 Exam/Review of Systems Exam Vitals Vital Signs Date Temp Pulse Resp B/P (MAP) Pulse Ox O2 O2 Flow FiO2 Time Delivery Rate 04/28/19 98.6 95 18 180/80 98 11:27 (113) 04/28/19 Aerosol 5.0 28 08:43 T Tube Intake and Output 04/27/19 04/27/19 04/28/19 1515:00 23:00 07:00 IntakeIntake Total 1585 ml 50 ml 735 ml OutputOutput Total 800 ml 1200 ml BalanceBalance 1585 ml -750 ml -465 ml Results Result Diagram: 04/27/19 0652 04/27/19 0652 Results 24hrs Laboratory Tests Test 04/27/19 12:39 04/27/19 17:47 04/28/19 00:02 04/28/19 05:27 Bedside Glucose 226 H 229 H 199 210 Test 04/28/19 12:30 Bedside Glucose 232 H Medications Medication Current Medications Levetiracetam 100 ml @ 400 mls/hr Q12 IVPB Last administered on 04/28/19at 08:51; Admin Dose 400 MLS/HR; Start 04/21/19 at 21:00 Ondansetron HCl (Zofran Inj) 4 mg Q6H PRN IV NAUSEA AND/OR VOMITING; Start 04/21/19 at 13:00 Levalbuterol (Xopenex Neb) 0.63 mg Q2H RESP THERAPY PRN HHN WHEEZING AND SOB; Start 04/21/19 at 14:00 Diagnostic Test (Pha) (Accu-Chek) 1 ea 02 XX ; Start 04/22/19 at 02:00 Miscellaneous Information 1 ea NOTE XX ; Start 04/21/19 at 14:00 Glucose (Glutose) 15 gm Q15M PRN PO DECREASED GLUCOSE; Start 04/21/19 at 14:00 Glucose (Glutose) 22.5 gm Q15M PRN PO DECREASED GLUCOSE; Start 04/21/19 at 14:00 Dextrose (D50w Syringe) 25 ml Q15M PRN IV DECREASED GLUCOSE; Start 04/21/19 at 14:00 Dextrose (D50w Syringe) 50 ml Q15M PRN IV DECREASED GLUCOSE; Start 04/21/19 at 14:00 Glucagon (Glucagen) 1 mg Q15M PRN IM DECREASED GLUCOSE; Start 04/21/19 at 14:00 Glucose (Glutose) 15 gm Q15M PRN BUCCAL DECREASED GLUCOSE; Start 04/21/19 at 14:00 Collagenase (Santyl) 1 applic DAILY TOP Last administered on 04/28/19at 08:51; Admin Dose 1 APPLIC; Start 04/21/19 at 16:00 Collagenase (Santyl) 1 applic PRN PRN TOP PER WND CARE ORDERS-SACRUM; Start 04/21/19 at 14:30 Multivitamins (Multivitamin) 30 ml DAILY GTB Last administered on 04/28/19at 08:51; Admin Dose 30 ML; Start 04/24/19 at 09:00 Potassium Chloride/Dextrose/ Sod Cl 1,000 ml @ 70 mls/hr [id number] IV Last administered on 04/27/19at 14:59; Admin Dose 70 MLS/HR; Start 04/24/19 at 00:00 Meropenem/Sodium Chloride 50 ml @ 100 mls/hr Q12 IVPB Last administered on 04/28/19 08:51; Admin Dose 100 MLS/HR; Start 04/25/19 at 21:00 Fluconazole/ Sodium Chloride 50 ml @ 50 mls/hr Q24H IVPB Last administered on 04/27/19 14:58; Admin Dose 50 MLS/HR; Start 04/25/19 at 15:00 Nystatin (Nystatin Oint) 1 applic BID TOP Last administered on 04/28/19 08:52; Admin Dose 1 APPLIC; Start 04/25/19 at 21:00 Insulin Aspart (Novolog Insulin Pen) (Adult SC Insulin - Moder... Q6 SC Last ad ministered on 04/28/19 05:38; Admin Dose 4 UNIT; Start 04/25/19 at 18:00 Lansoprazole (Prevacid) 30 mg BID@0600,1800 GTB Last administered on 04/28/19 05:29; Admin Dose 30 MG; Start 04/25/19 at 18:00 Metoprolol Tartrate (Lopressor) 50 mg BID PO Last administered on 04/28/19 08:51; Admin Dose 50 MG; Start 04/26/19 at 21:00 Clonidine (Catapres) 0.1 mg Q6H PRN GTB ELEVATED BLOOD PRESSURE; Start 04/26/19 at 22:00 MATILDE HELLER Apr 28, 2019 12:33
--- NOTE | 2019-04-28 14:26 | CONS ---
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 Last recurrence self limited 04/26 3.resp failure chronic s/p trach 4.DM 5.dysphagia s/p G tube 6.GIB 7. HTN-labile with current elevation but mainly has been well controlled on current regimen 8. Encephalopathy Recc: -Now on tele -Contineu abx's and f/u cx data -Continue keppra -Continue BB at current dose for now and if remains elevated will further uptitrate Consultation Date/Type/Reason Admit Date/Time Apr 21, 2019 at 10:34 Initial Consult Date 04/22/19 Type of Consult Cardiology Reason for Consultation SVT/HTN Requesting Provider: NICOLE BUCHANAN MD Date/Time of Note DATE: 04/28/19 TIME: 14:22 Exam/Review of Systems Vital Signs Vitals Vital Signs Date Temp Pulse Resp B/P (MAP) Pulse Ox O2 O2 Flow FiO2 Time Delivery Rate 04/28/19 98.6 95 18 180/80 98 11:27 (113) 04/28/19 Aerosol 5.0 28 08:43 T Tube Intake and Output 04/27/19 04/27/19 04/28/19 1515:00 23:00 07:00 IntakeIntake Total 1585 ml 50 ml 735 ml OutputOutput Total 800 ml 1200 ml BalanceBalance 1585 ml -750 ml -465 ml Exam Exam Review of Systems: CONSTITUTIONAL: No fevers, chills. PULMONARY: No sob CARDIOVASCULAR: No chest pain/palpitations GASTROINTESTINAL: No nausea/vomiting. GENITOURINARY: No hematuria/dysuria. MUSCULOSKELETAL: No myagias/arthalgias. PSYCHIATRIC: The patient denies depression. NEUROLOGIC: encephalopathic Constitutional: well developed, other (encephalopathic) Head: normocephalic ENMT: mucosa pink and moist Neck: supple, jvd (9 cm water) Respiratory: diminished breath sounds (at bases/B) Cardiovascular: regular rate and rhythm Gastrointestinal: soft, non-tender Musculoskeletal: muscle weakness (generalized) Extremities: edema (none) Neurological: unresponsive Labs Result Diagram: 04/27/19 0652 04/27/19 0652 Results 24hrs Laboratory Tests Test 04/27/19 17:47 7/14/19 00:02 04/28/19 05:27 04/28/19 12:30 Bedside Glucose 229 H 199 210 232 H Medications Medications Current Medications Levetiracetam 100 ml @ 400 mls/hr Q12 IVPB Last administered on 04/28/19at 08:51; Admin Dose 400 MLS/HR; Start 04/21/19 at 21:00 Ondansetron HCl (Zofran Inj) 4 mg Q6H PRN IV NAUSEA AND/OR VOMITING; Start 04/21/19 at 13:00 Levalbuterol (Xopenex Neb) 0.63 mg Q2H RESP THERAPY PRN HHN WHEEZING AND SOB; Start 04/21/19 at 14:00 Diagnostic Test (Pha) (Accu-Chek) 1 ea 02 XX ; Start 04/22/19 at 02:00 Miscellaneous Information 1 ea NOTE XX ; Start 04/21/19 at 14:00 Glucose (Glutose) 15 gm Q15M PRN PO DECREASED GLUCOSE; Start 04/21/19 at 14:00 Glucose (Glutose) 22.5 gm Q15M PRN PO DECREASED GLUCOSE; Start 04/21/19 at 14:00 Dextrose (D50w Syringe) 25 ml Q15M PRN IV DECREASED GLUCOSE; Start 04/21/19 at 14:00 Dextrose (D50w Syringe) 50 ml Q15M PRN IV DECREASED GLUCOSE; Start 04/21/19 at 14:00 Glucagon (Glucagen) 1 mg Q15M PRN IM DECREASED GLUCOSE; Start 04/21/19 at 14:00 Glucose (Glutose) 15 gm Q15M PRN BUCCAL DECREASED GLUCOSE; Start 04/21/19 at 14:00 Collagenase (Santyl) 1 applic DAILY TOP Last administered on 04/28/19at 08:51; Admin Dose 1 APPLIC; Start 04/21/19 at 16:00 Collagenase (Santyl) 1 applic PRN PRN TOP PER WND CARE ORDERS-SACRUM; Start 04/21/19 at 14:30 Multivitamins (Multivitamin) 30 ml DAILY GTB Last administered on 04/28/19at 08:51; Admin Dose 30 ML; Start 04/24/19 at 09:00 Potassium Chloride/Dextrose/ Sod Cl 1,000 ml @ 70 mls/hr [id number] IV Last ad ministered on 04/27/19 14:59; Admin Dose 70 MLS/HR; Start 04/24/19 at 00:00 Meropenem/Sodium Chloride 50 ml @ 100 mls/hr Q12 IVPB Last administered on 04/28/19 08:51; Admin Dose 100 MLS/HR; Start 04/25/19 at 21:00 Fluconazole/ Sodium Chloride 50 ml @ 50 mls/hr Q24H IVPB Last administered on 04/27/19 14:58; Admin Dose 50 MLS/HR; Start 04/25/19 at 15:00 Nystatin (Nystatin Oint) 1 applic BID TOP Last administered on 04/28/19 08:52; Admin Dose 1 APPLIC; Start 04/25/19 at 21:00 Insulin Aspart (Novolog Insulin Pen) (Adult SC Insulin - Moder... Q6 SC Last administered on 04/28/19 12:36; Admin Dose 6 UNIT; Start 04/25/19 at 18:00 Lansoprazole (Prevacid) 30 mg BID@0600,1800 GTB Last administered on 04/28/19 05:29; Admin Dose 30 MG; Start 04/25/19 at 18:00 Metoprolol Tartrate (Lopressor) 50 mg BID PO Last administered on 04/28/19 08:51; Admin Dose 50 MG; Start 04/26/19 at 21:00 Clonidine (Catapres) 0.1 mg Q6H PRN GTB ELEVATED BLOOD PRESSURE; Start 04/26/19 at 22:00 Linezolid (Zyvox) 600 mg BID PO ; Start 04/28/19 at 14:00 JOSE M IRWIN Apr 28, 2019 14:26
[2019-04-28] MEDS: ZYVOX 600 MG TAB PO SCH ×2 (14:50→21:08)
[2019-04-28] MEDS: FLUCONAZOLE 100 MG/50 ML (PMX) 50 ML IVPB SCH (14:50)
[2019-04-28] MEDS: hydrALAzine 20 MG INJ IV PRN ×2 (14:50→21:09)
--- NOTE | 2019-04-28 16:23 | PN ---
DATE: 04/28/2019 SUBJECTIVE: Chart reviewed. The patient remains on 28% FIO2 cool aerosol, saturating 98% and does n ot appear in acute distress. PHYSICAL EXAMINATION: VITAL SIGNS: Blood pressure 136/70, pulse 87, respiration 18, temperature 98. HEENT: Pupils are equal and react to light. NECK: Supple, no JVD noted. Tracheostomy in place. LUNGS: Scattered rhonchi bilaterally. CARDIOVASCULAR: S1, S2 normal. ABDOMEN: Soft and nontender, no megaly or masses noted. EXTREMITIES: No clubbing or cyanosis noted. NEUROLOGICAL: Encephalopathic. IMPRESSION: 1. Chronic respiratory failure, tracheostomy dependent. 2. Status post sepsis with sacral decubitus, infected. 3. Possible pneumonia. 4. Advance encephalopathy. 5. Anemia. 6. Hypertension. 7. Diabetes mellitus. 8. Seizure disorder. 9. Dysphagia. RECOMMENDATIONS: 1. Continue antibiotics. 2. Consultants noted. 3. Nutritional support. 4. Wound care. 5. Tracheostomy care. 6. Followup labs. Dictated By: EVELYN CHRISTIANSON MD, MA/ERENDIRA Conf#: [id number] DID#: [id number] CC: NICOLE BUCHANAN MD;*EndCC*
[2019-04-29] VITALS (12 sets, daily range): BP systolic 151–186; BP diastolic 58–100; PULSE 79–102; RESP 18–20
[2019-04-29] MEDS: ACCU-CHEK XX SCH (02:00)
[2019-04-29] MEDS: LANSOPRAZOLE 30 MG CAP GTB SCH ×2 (05:31→17:26)
[2019-04-29] MEDS: Insulin NOVOLOG SS MODERATE Algorithm(NPO/TPN/ENTERAL FEEDS) SC SCH ×2 (05:35→11:45)
[2019-04-29] MEDS: D5W-0.45 NACL + KCL 20 MEQ 1,000 ML IV SCH ×2 (08:42→11:48)
[2019-04-29] MEDS: LEVETIRACETAM 500 MG (PMX) 100 ML IVPB SCH ×2 (08:56→20:26)
[2019-04-29] MEDS: NYSTATIN 15 GM OINT TOP SCH ×2 (08:58→20:41)
[2019-04-29] MEDS: COLLAGENASE 5 GM (UD JAR) TOP SCH (08:58)
[2019-04-29] MEDS: ZYVOX 600 MG TAB PO SCH (08:58)
[2019-04-29] MEDS: METOPROLOL 50 MG TAB PO SCH (08:58)
[2019-04-29] MEDS: MULTIVITAMINS 30 ML CUP GTB SCH (08:58)
[2019-04-29] MEDS: MEROPENEM 1 GM/50ML(PMX) 50 ML IVPB SCH (09:38)
--- NOTE | 2019-04-29 12:00 | CONS ---
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 Had recurrence overnight self limited 3.resp failure chronic s/p trach 4.DM 5.dysphagia s/p G tube 6.GIB 7. HTN-continues to be elevated and difficult to control 8. Encephalopathy Recc: -Now on tele -Contineu abx's and f/u cx data -Continue keppra -Continue BB but will change to alternative BB for possible increased efficacy -add ACEI to improve overall BP control -Follow volume status clsoely and will give dose of lasix today Consultation Date/Type/Reason Admit Date/Time Apr 21, 2019 at 10:34 Initial Consult Date 04/22/19 Type of Consult Cardiology Reason for Consultation SVT Requesting Provider: NICOLE BUCHANAN MD Date/Time of Note DATE: 04/29/19 TIME: 11:57 Exam/Review of Systems Vital Signs Vitals Vital Signs Date Temp Pulse Resp B/P (MAP) Pulse Ox O2 O2 Flow FiO2 Time Delivery Rate 04/29/19 96 176/86 11:36 (116) 04/29/19 98.9 18 98 11:31 04/29/19 5.0 08:05 04/29/19 28 07:31 04/29/19 Aerosol 07:30 T Tube Intake and Output 04/28/19 04/28/19 04/29/19 1515:00 23:00 07:00 IntakeIntake Total 640 ml 330 ml 735 ml OutputOutput Total 950 ml 500 ml 1000 ml BalanceBalance -310 ml -170 ml -265 ml Exam Exam Review of Systems: CONSTITUTIONAL: No fevers, chills. PULMONARY: No sob CARDIOVASCULAR: No chest pain/palpitations GASTROINTESTINAL: No nausea/vomiting. GENITOURINARY: No hematuria/dysuria. MUSCULOSKELETAL: No myagias/arthalgias. PSYCHIATRIC: The patient denies depression. NEUROLOGIC: encephalopathic Constitutional: other (encephalopathic) Head: normocephalic ENMT: mucosa pink and moist Neck: supple, jvd (9 cm water) Respiratory: diminished breath sounds (at bases/B) Cardiovascular: regular rate and rhythm Gastrointestinal: soft, non-tender Musculoskeletal: muscle weakness (generalized) Extremities: edema (trace/B) Neurological: unresponsive Labs Result Diagram: 04/27/19 0652 04/27/19 0652 Results 24hrs Laboratory Tests Test 04/28/19 12:30 04/28/19 17:58 04/28/19 23:40 04/29/19 05:29 Bedside Glucose 232 H 266 H 185 218 Test 04/29/19 11:35 Bedside Glucose 228 H Medications Medications Current Medications Levetiracetam 100 ml @ 400 mls/hr Q12 IVPB Last administered on 04/29/19at 08:56; Admin Dose 400 MLS/HR; Start 04/21/19 at 21:00 Ondansetron HCl (Zofran Inj) 4 mg Q6H PRN IV NAUSEA AND/OR VOMITING; Start 04/21/19 at 13:00 Levalbuterol (Xopenex Neb) 0.63 mg Q2H RESP THERAPY PRN HHN WHEEZING AND SOB; Start 04/21/19 at 14:00 Diagnostic Test (Pha) (Accu-Chek) 1 ea 02 XX ; Start 04/22/19 at 02:00 Miscellaneous Information 1 ea NOTE XX ; Start 04/21/19 at 14:00 Glucose (Glutose) 15 gm Q15M PRN PO DECREASED GLUCOSE; Start 04/21/19 at 14:00 Glucose (Glutose) 22.5 gm Q15M PRN PO DECREASED GLUCOSE; Start 04/21/19 at 14:00 Dextrose (D50w Syringe) 25 ml Q15M PRN IV DECREASED GLUCOSE; Start 04/21/19 at 14:00 Dextrose (D50w Syringe) 50 ml Q15M PRN IV DECREASED GLUCOSE; Start 04/21/19 at 14:00 Glucagon (Glucagen) 1 mg Q15M PRN IM DECREASED GLUCOSE; Start 04/21/19 at 14:00 Glucose (Glutose) 15 gm Q15M PRN BUCCAL DECREASED GLUCOSE; Start 04/21/19 at 14:00 Collagenase (Santyl) 1 applic DAILY TOP Last administered on 04/29/19at 08:58; Admin Dose 1 APPLIC; Start 04/21/19 at 16:00 Collagenase (Santyl) 1 applic PRN PRN TOP PER WND CARE ORDERS-SACRUM; Start 04/21/19 at 14:30 Multivitamins (Multivitamin) 30 ml DAILY GTB Last administered on 04/29/19 08:58; Admin Dose 30 ML; Start 04/24/19 at 09:00 Potassium Chloride/Dextrose/ Sod Cl 1,000 ml @ 70 mls/hr [id number] IV Last administered on 04/29/19 11:48; Admin Dose 70 MLS/HR; Start 04/24/19 at 00:00 Meropenem/Sodium Chloride 50 ml @ 100 mls/hr Q12 IVPB Last administered on 04/29/19 09:38; Admin Dose 100 MLS/HR; Start 04/25/19 at 21:00 Fluconazole/ Sodium Chloride 50 ml @ 50 mls/hr Q24H IVPB Last administered on 04/28/19 14:50; Admin Dose 50 MLS/HR; Start 04/25/19 at 15:00 Nystatin (Nystatin Oint) 1 applic BID TOP Last administered on 04/29/19 08:58; Admin Dose 1 APPLIC; Start 04/25/19 at 21:00 Lansoprazole (Prevacid) 30 mg BID@0600,1800 GTB Last administered on 04/29/19 05:31; Admin Dose 30 MG; Start 04/25/19 at 18:00 Metoprolol Tartrate (Lopressor) 50 mg BID PO Last administered on 04/29/19 08:58; Admin Dose 50 MG; Start 04/26/19 at 21:00 Clonidine (Catapres) 0.1 mg Q6H PRN GTB ELEVATED BLOOD PRESSURE Last admi nistered on 04/29/19 11:38; Admin Dose 0.1 MG; Start 04/26/19 at 22:00 Linezolid (Zyvox) 600 mg BID PO Last administered on 04/29/19 08:58; Admin Dose 600 MG; Start 04/28/19 at 14:00 Hydralazine HCl (Apresoline) 10 mg Q4H PRN IV SBP>170 Last administered on 04/28/19 21:09; Admin Dose 10 MG; Start 04/28/19 at 14:30 Insulin Aspart (Novolog Insulin Pen) (Adult SC Insulin - Moder... Q4 SC ; Start 04/29/19 at 13:00 Insulin Glargine (Lantus) 11 units DAILY@0800 SC ; Start 04/29/19 at 12:00; Status UNV JOSE M IRWIN Apr 29, 2019 12:00
--- NOTE | 2019-04-29 12:30 | CONS ---
Consult Date/Type/Reason Admit Date/Time Apr 21, 2019 at 10:34 Initial Consult Date 04/22/19 Type of Consult Pulmonary Requesting Provider: NICOLE BUCHANAN MD Date/Time of Note DATE: 04/29/19 TIME: 12:29 Subjective Patient stable this morning no new events Objective Vital Signs Date Temp Pulse Resp B/P (MAP) Pulse Ox O2 O2 Flow FiO2 Time Delivery Rate 04/29/19 96 176/86 11:36 (116) 04/29/19 98.9 18 98 11:31 04/29/19 5.0 08:05 04/29/19 28 07:31 04/29/19 Aerosol 07:30 T Tube Intake and Output 04/28/19 04/28/19 04/29/19 1515:00 23:00 07:00 IntakeIntake Total 640 ml 330 ml 735 ml OutputOutput Total 950 ml 500 ml 1000 ml BalanceBalance -310 ml -170 ml -265 ml Exam PHYSICAL EXAMINATION: VITAL SIGNS: HEENT: Pupils are equal and react to light. NECK: Supple, no JVD noted. Tracheostomy in place. LUNGS: Scattered rhonchi bilaterally. CARDIOVASCULAR: S1, S2 normal. ABDOMEN: Soft and nontender, no megaly or masses noted. EXTREMITIES: No clubbing or cyanosis noted. NEUROLOGICAL: Encephalopathic. Vent Setting Fraction of Inspired Oxygen pe: 28 Results/Medications Result Diagram: 04/27/19 0652 04/27/19 0652 Results 24 hrs Laboratory Tests Test 04/28/19 12:30 04/28/19 17:58 04/28/19 23:40 04/29/19 05:29 Bedside Glucose 232 H 266 H 185 218 Test 04/29/19 11:35 Bedside Glucose 228 H Medications Current Medications Levetiracetam 100 ml @ 400 mls/hr Q12 IVPB Last administered on 04/29/19at 08:56; Admin Dose 400 MLS/HR; Start 04/21/19 at 21:00 Ondansetron HCl (Zofran Inj) 4 mg Q6H PRN IV NAUSEA AND/OR VOMITING; Start 04/21/19 at 13:00 Levalbuterol (Xopenex Neb) 0.63 mg Q2H RESP THERAPY PRN HHN WHEEZING AND SOB; Start 04/21/19 at 14:00 Diagnostic Test (Pha) (Accu-Chek) 1 ea 02 XX ; Start 04/22/19 at 02:00 Miscellaneous Information 1 ea NOTE XX ; Start 04/21/19 at 14:00 Glucose (Glutose) 15 gm Q15M PRN PO DECREASED GLUCOSE; Start 04/21/19 at 14:00 Glucose (Glutose) 22.5 gm Q15M PRN PO DECREASED GLUCOSE; Start 04/21/19 at 14:00 Dextrose (D50w Syringe) 25 ml Q15M PRN IV DECREASED GLUCOSE; Start 04/21/19 at 14:00 Dextrose (D50w Syringe) 50 ml Q15M PRN IV DECREASED GLUCOSE; Start 04/21/19 at 14:00 Glucagon (Glucagen) 1 mg Q15M PRN IM DECREASED GLUCOSE; Start 04/21/19 at 14:00 Glucose (Glutose) 15 gm Q15M PRN BUCCAL DECREASED GLUCOSE; Start 04/21/19 at 14:00 Collagenase (Santyl) 1 applic DAILY TOP Last administered on 04/29/19at 08:58; Admin Dose 1 APPLIC; Start 04/21/19 at 16:00 Collagenase (Santyl) 1 applic PRN PRN TOP PER WND CARE ORDERS-SACRUM; Start 04/21/19 at 14:30 Multivitamins (Multivitamin) 30 ml DAILY GTB Last administered on 04/29/19at 08:58; Admin Dose 30 ML; Start 04/24/19 at 09:00 Potassium Chloride/Dextrose/ Sod Cl 1,000 ml @ 70 mls/hr [id number] IV Last administered on 04/29/19at 11:48; Admin Dose 70 MLS/HR; Start 04/24/19 at 00:00 Meropenem/Sodium Chloride 50 ml @ 100 mls/hr Q12 IVPB Last administered on 04/29/19at 09:38; Admin Dose 100 MLS/HR; Start 04/25/19 at 21:00 Fluconazole/ Sodium Chloride 50 ml @ 50 mls/hr Q24H IVPB Last administered on 04/28/19at 14:50; Admin Dose 50 MLS/HR; Start 04/25/19 at 15:00 Nystatin (Nystatin Oint) 1 applic BID TOP Last administered on 04/29/19at 08:58; Admin Dose 1 APPLIC; Start 04/25/19 at 21:00 Lansoprazole (Prevacid) 30 mg BID@0600,1800 GTB Last administered on 04/29/19at 05:31; Admin Dose 30 MG; Start 04/25/19 at 18:00 Clonidine (Catapres) 0.1 mg Q6H PRN GTB ELEVATED BLOOD PRESSURE Last administered on 04/29/19at 11:38; Admin Dose 0.1 MG; Start 04/26/19 at 22:00 Linezolid (Zyvox) 600 mg BID PO Last administered on 04/29/19at 08:58; Admin Dose 600 MG; Start 04/28/19 at 14:00 Hydralazine HCl (Apresoline) 10 mg Q4H PRN IV SBP>170 Last administered on 04/28/19at 21:09; Admin Dose 10 MG; Start 04/28/19 at 14:30 Insulin Aspart (Novolog Insulin Pen) (Adult SC Insulin - Moder... Q4 SC ; Start 04/29/19 at 13:00 Insulin Glargine (Lantus) 11 units DAILY@0800 SC ; Start 04/29/19 at 12:00 Atenolol (Tenormin) 50 mg BID PO ; Start 04/29/19 at 21:00 Benazepril HCl (Lotensin) 10 mg DAILY GTB ; Start 04/30/19 at 09:00 Assessment/Plan Hospital Course (Demo Recall) IMPRESSION: 1. Chronic respiratory failure, tracheostomy dependent. 2. Status post sepsis with sacral decubitus, infected. 3. Possible pneumonia. 4. Advance encephalopathy. 5. Anemia. 6. Hypertension. 7. Diabetes mellitus. 8. Seizure disorder. 9. Dysphagia. RECOMMENDATIONS: 1. Continue antibiotics. 2. Consultants noted. 3. Nutritional support. 4. Wound care. 5. Tracheostomy care. CONI FERNANDEZ MD, [facility] Apr 29, 2019 12:30
[2019-04-29] MEDS: INSULIN ASPART [NOVOLOG] 3 ML PEN SC SCH ×3 (13:00→20:37)
[2019-04-29] MEDS: INSULIN GLARGINE [LANTus] (100 UNITS/ML) SYG SC SCH (13:47)
[2019-04-29] MEDS: FLUCONAZOLE 100 MG/50 ML (PMX) 50 ML IVPB SCH (14:25)
--- NOTE | 2019-04-29 14:37 | CONS ---
Assessment/Plan Assessment/Plan Hospital Course (Demo Recall) No acute events patient is noncommunicative in no distress no fevers overnight Microbiology: Endotracheal aspirate growing staph aureus, urine culture grew yeast Indwelling's: trach, PEG Antimicrobials: Merrem, Diflucan Physical examination: This is a chronically ill-appearing elderly woman who is noncommunicative in no distress. Head atraumatic normocephalic sclera nonicteric neck is supple chest rise symmetrical breath sounds diminished bases heart S1-S2 abdomen obese soft bowel sounds hypoactive extremities contractured without cyanosis skin patient has unstageable chronic wound on her sacrum sacrum and necrotic wounds on the feet Assessment: 1. SIRS 2. UTI vs colonized 3. Tracheobronchitis 4. Chronic respiratory failure and dysphagia 5. Multiple chronic wounds 6. History of CVA 7. Acute on chronic anemia 8. Diabetes 9. Seizure disorder 10. GT site cellulitis Plan: Clinically unchanged, GT site clear, will dc abx Consultation Date/Type/Reason Admit Date/Time Apr 21, 2019 at 10:34 Initial Consult Date 04/22/19 Type of Consult id Requesting Provider: NICOLE BUCHANAN MD Date/Time of Note DATE: 04/29/19 TIME: 14:36 Exam/Review of Systems Exam Vitals Vital Signs Date Temp Pulse Resp B/P (MAP) Pulse Ox O2 O2 Flow FiO2 Time Delivery Rate 04/29/19 96 176/86 11:36 (116) 04/29/19 98.9 18 98 11:31 04/29/19 5.0 08:05 04/29/19 28 07:31 04/29/19 Aerosol 07:30 T Tube Intake and Output 04/28/19 04/28/19 04/29/19 1515:00 23:00 07:00 IntakeIntake Total 640 ml 330 ml 735 ml OutputOutput Total 950 ml 500 ml 1000 ml BalanceBalance -310 ml -170 ml -265 ml Results Result Diagram: 04/27/19 0652 04/27/19 0652 Results 24hrs Laboratory Tests Test 04/28/19 17:58 04/28/19 23:40 04/29/19 05:29 04/29/19 11:35 Bedside Glucose 266 H 185 218 228 H Test 04/29/19 13:44 Bedside Glucose 243 H Medications Medication Current Medications Levetiracetam 100 ml @ 400 mls/hr Q12 IVPB Last administered on 04/29/19at 08:56; Admin Dose 400 MLS/HR; Start 04/21/19 at 21:00 Ondansetron HCl (Zofran Inj) 4 mg Q6H PRN IV NAUSEA AND/OR VOMITING; Start 04/21/19 at 13:00 Levalbuterol (Xopenex Neb) 0.63 mg Q2H RESP THERAPY PRN HHN WHEEZING AND SOB; Start 04/21/19 at 14:00 Diagnostic Test (Pha) (Accu-Chek) 1 ea 02 XX ; Start 04/22/19 at 02:00 Miscellaneous Information 1 ea NOTE XX ; Start 04/21/19 at 14:00 Glucose (Glutose) 15 gm Q15M PRN PO DECREASED GLUCOSE; Start 04/21/19 at 14:00 Glucose (Glutose) 22.5 gm Q15M PRN PO DECREASED GLUCOSE; Start 04/21/19 at 14:00 Dextrose (D50w Syringe) 25 ml Q15M PRN IV DECREASED GLUCOSE; Start 04/21/19 at 14:00 Dextrose (D50w Syringe) 50 ml Q15M PRN IV DECREASED GLUCOSE; Start 04/21/19 at 14:00 Glucagon (Glucagen) 1 mg Q15M PRN IM DECREASED GLUCOSE; Start 04/21/19 at 14:00 Glucose (Glutose) 15 gm Q15M PRN BUCCAL DECREASED GLUCOSE; Start 04/21/19 at 1 4:00 Collagenase (Santyl) 1 applic DAILY TOP Last administered on 04/29/19at 08:58; Admin Dose 1 APPLIC; Start 04/21/19 at 16:00 Collagenase (Santyl) 1 applic PRN PRN TOP PER WND CARE ORDERS-SACRUM; Start 04/21/19 at 14:30 Multivitamins (Multivitamin) 30 ml DAILY GTB Last administered on 04/29/19at 0 8:58; Admin Dose 30 ML; Start 04/24/19 at 09:00 Meropenem/Sodium Chloride 50 ml @ 100 mls/hr Q12 IVPB Last administered on 04/29/19at 09:38; Admin Dose 100 MLS/HR; Start 04/25/19 at 21:00 Fluconazole/ Sodium Chloride 50 ml @ 50 mls/hr Q24H IVPB Last administered on 04/29/19 14:25; Admin Dose 50 MLS/HR; Start 04/25/19 at 15:00 Nystatin (Nystatin Oint) 1 applic BID TOP Last administered on 04/29/19 08:58; Admin Dose 1 APPLIC; Start 04/25/19 at 21:00 Lansoprazole (Prevacid) 30 mg BID@0600,1800 GTB Last administered on 04/29/19 05:31; Admin Dose 30 MG; Start 04/25/19 at 18:00 Clonidine (Catapres) 0.1 mg Q6H PRN GTB ELEVATED BLOOD PRESSURE Last administered on 04/29/19 11:38; Admin Dose 0.1 MG; Start 04/26/19 at 22:00 Linezolid (Zyvox) 600 mg BID PO Last administered on 04/29/19 08:58; Admin Dose 600 MG; Start 04/28/19 at 14:00 Hydralazine HCl (Apresoline) 10 mg Q4H PRN IV SBP>170 Last administered on 04/28/19at 21:09; Admin Dose 10 MG; Start 04/28/19 at 14:30 Insulin Aspart (Novolog Insulin Pen) (Adult SC Insulin - Moder... Q4 SC ; Start 04/29/19 at 13:00 Insulin Glargine (Lantus) 11 units DAILY@0800 SC Last administered on 04/29/19at 13:47; Admin Dose 11 UNITS; Start 04/29/19 at 12:00 Atenolol (Tenormin) 50 mg BID PO ; Start 04/29/19 at 21:00 Benazepril HCl (Lotensin) 10 mg DAILY GTB ; Start 04/30/19 at 09:00 ANTHONY JOY NP Apr 29, 2019 14:37
--- NOTE | 2019-04-29 16:59 | PN ---
Date/Time of Note Date/Time of Note DATE: 04/29/19 TIME: 16:57 Assessment/Plan VTE Prophylaxis Risk score (from Ns)>0 risk: 9 SCD applied (from [facility]): Yes Pharmacological prophylaxis: NA/contraindicated Pharm contraindication: anticoag not tolerated, other Lines/Catheters IV Catheter Type (from [facility]): PICC Line Central line still needed: Yes Urinary Cath still in place: Yes Reason Cath still needed: urinary retention Assessment/Plan Hospital Course Patient looks comfortable on cool aerosol mist, patient tolerates G-tube feeding well will DC IV fluids, will check BMP and CBC tomorrow. She still has a moderate amount of secretions continue pulmonary toilet and tracheostomy care. Plan of care discussed with RN. Assessment/Plan - GI bleed, status post EGD with notion of gastric ulcer at the G-tube site and esophagitis, continue PPI. Dr. Prieto is following in gastroenterology consultation. - Possible sepsis. Continue antibiotics per ID. Dr. Mcmullen is following in infection disease consultation. - Tracheobronchitis versus early pneumonia - Ventilator dependent respiratory failure. Dr. De La Torre is following in pulmonology consultation - Hypertension. Continue Norvasc and losartan. - Diabetes. Continue Lantus and sliding scale insulin in addition to metformin. - Seizure disorder, continue Keppra. - Anemia multifactorial chronic disease and possible acute blood loss. - Hx of CVA, continue Plavix. - Multiple pressure ulcers continue wound care per wound care consult, offloa ding, air mattress, optimize nutrition. Further recommendations based on clinical course. Plan of care discussed with Dr. Mera. Result Diagram: 04/27/19 0652 04/27/19 0652 Results 24hrs Laboratory Tests Test 04/28/19 17:58 04/28/19 23:40 04/29/19 05:29 04/29/19 11:35 Bedside Glucose 266 H 185 218 228 H Test 04/29/19 13:44 Bedside Glucose 243 H Exam/Review of Systems Exam Vitals Vital Signs Date Temp Pulse Resp B/P (MAP) Pulse Ox O2 O2 Flow FiO2 Time Delivery Rate 04/29/19 98.4 88 18 166/71 98 15:35 (102) 04/29/19 5.0 08:05 04/29/19 28 07:31 04/29/19 Aerosol 07:30 T Tube Intake and Output 04/28/19 04/28/19 04/29/19 1515:00 23:00 07:00 IntakeIntake Total 640 ml 330 ml 735 ml OutputOutput Total 950 ml 500 ml 1000 ml BalanceBalance -310 ml -170 ml -265 ml Exam Constitutional: alert, non-verbal Respiratory: diminished breath sounds Cardiovascular: regular rate and rhythm Gastrointestinal: soft, non-tender, other (G-tube) Musculoskeletal: nl extremities to inspection Extremities: normal pulses Neurological: confused Skin: nl turgor, other (Multiple pressure ulcers) Results Results 24hrs Laboratory Tests Test 04/28/19 17:58 04/28/19 23:40 04/29/19 05:29 04/29/19 11:35 Bedside Glucose 266 H 185 218 228 H Test 04/29/19 13:44 Bedside Glucose 243 H Medications Medication Current Medications Levetiracetam 100 ml @ 400 mls/hr Q12 IVPB Last administered on 04/29/19at 08:56; Admin Dose 400 MLS/HR; Start 04/21/19 at 21:00 Ondansetron HCl (Zofran Inj) 4 mg Q6H PRN IV NAUSEA AND/OR VOMITING; Start 04/21/19 at 13:00 Levalbuterol (Xopenex Neb) 0.63 mg Q2H RESP THERAPY PRN HHN WHEEZING AND SOB; Start 04/21/19 at 14:00 Diagnostic Test (Pha) (Accu-Chek) 1 ea 02 XX ; Start 04/22/19 at 02:00 Miscellaneous Information 1 ea NOTE XX ; Start 04/21/19 at 14:00 Glucose (Glutose) 15 gm Q15M PRN PO DECREASED GLUCOSE; Start 04/21/19 at 14:00 Glucose (Glutose) 22.5 gm Q15M PRN PO DECREASED GLUCOSE; Start 04/21/19 at 14:00 Dextrose (D50w Syringe) 25 ml Q15M PRN IV DECREASED GLUCOSE; Start 04/21/19 at 14:00 Dextrose (D50w Syringe) 50 ml Q15M PRN IV DECREASED GLUCOSE; Start 04/21/19 at 14:00 Glucagon (Glucagen) 1 mg Q15M PRN IM DECREASED GLUCOSE; Start 04/21/19 at 14:00 Glucose (Glutose) 15 gm Q15M PRN BUCCAL DECREASED GLUCOSE; Start 04/21/19 at 14:00 Collagenase (Santyl) 1 applic DAILY TOP Last administered on 04/29/19at 08:58; Admin Dose 1 APPLIC; Start 04/21/19 at 16:00 Collagenase (Santyl) 1 applic PRN PRN TOP PER WND CARE ORDERS-SACRUM; Start 04/21/19 at 14:30 Multivitamins (Multivitamin) 30 ml DAILY GTB Last administered on 04/29/19at 08:58; Admin Dose 30 ML; Start 04/24/19 at 09:00 Nystatin (Nystatin Oint) 1 applic BID TOP Last administered on 04/29/19at 08:58; Admin Dose 1 APPLIC; Start 04/25/19 at 21:00 Lansoprazole (Prevacid) 30 mg BID@0600,1800 GTB Last administered on 04/29/19at 05:31; Admin Dose 30 MG; Start 04/25/19 at 18:00 Clonidine (Catapres) 0.1 mg Q6H PRN GTB ELEVATED BLOOD PRESSURE Last administered on 04/29/19at 11:38; Admin Dose 0.1 MG; Start 04/26/19 at 22:00 Hydralazine HCl (Apresoline) 10 mg Q4H PRN IV SBP>170 Last administered on 04/28/19at 21:09; Admin Dose 10 MG; Start 04/28/19 at 14:30 Insulin Aspart (Novolog Insulin Pen) (Adult SC Insulin - Moder... Q4 SC ; Start 04/29/19 at 13:00 Insulin Glargine (Lantus) 11 units DAILY@0800 SC Last administered on 04/29/19at 13:47; Admin Dose 11 UNITS; Start 04/29/19 at 12:00 Atenolol (Tenormin) 50 mg BID PO ; Start 04/29/19 at 21:00 Benazepril HCl (Lotensin) 10 mg DAILY GTB ; Start 04/30/19 at 09:00 DWAYNE CALDERON Apr 29, 2019 16:59
[2019-04-29] MEDS: ATENOLOL 50 MG TAB PO SCH (20:25)
[2019-04-30] MEDS: INSULIN ASPART [NOVOLOG] 3 ML PEN SC SCH ×6 (00:59→20:40)
[2019-04-30] MEDS: ACCU-CHEK XX SCH (02:00)
[2019-04-30 04:03] VITALS: BP 150/61; PULSE 76; RESP 18
[2019-04-30] MEDS: LANSOPRAZOLE 30 MG CAP GTB SCH ×2 (04:57→17:21)
[2019-04-30 07:31] VITALS: BP 155/73; PULSE 89; RESP 20
[2019-04-30] MEDS: COLLAGENASE 5 GM (UD JAR) TOP SCH (08:44)
[2019-04-30] MEDS: LEVETIRACETAM 500 MG (PMX) 100 ML IVPB SCH (08:44)
[2019-04-30] MEDS: MULTIVITAMINS 30 ML CUP GTB SCH (08:44)
[2019-04-30] MEDS: NYSTATIN 15 GM OINT TOP SCH ×2 (08:45→20:32)
[2019-04-30] MEDS: ATENOLOL 50 MG TAB PO SCH ×2 (08:45→20:32)
[2019-04-30] MEDS: BENAZEPRIL 10 MG TAB GTB SCH (08:45)
[2019-04-30] MEDS: INSULIN GLARGINE [LANTus] (100 UNITS/ML) SYG SC SCH (09:00)
[2019-04-30 11:05] VITALS: BP 140/51; PULSE 76; RESP 22
--- NOTE | 2019-04-30 11:11 | CONS ---
Consult Date/Type/Reason Admit Date/Time Apr 21, 2019 at 10:34 Initial Consult Date 04/22/19 Type of Consult Pulmonary Requesting Provider: NICOLE BUCHANAN MD Date/Time of Note DATE: 04/30/19 TIME: 11:07 Subjective Patient appears comfortable this morning no respiratory distress. Objective Vital Signs Date Temp Pulse Resp B/P (MAP) Pulse Ox O2 O2 Flow FiO2 Time Delivery Rate 04/30/19 99 5.0 28 09:31 04/30/19 98.3 89 20 155/73 Trach 07:31 (100) Collar Intake and Output 04/29/19 04/29/19 04/30/19 1515:00 23:00 07:00 IntakeIntake Total 1345 ml 970 ml 515 ml OutputOutput Total 1000 ml 500 ml BalanceBalance 1345 ml -30 ml 15 ml Exam PHYSICAL EXAMINATION: VITAL SIGNS: HEENT: Pupils are equal and react to light. NECK: Supple, no JVD noted. Tracheostomy in place. LUNGS: Scattered rhonchi bilaterally. CARDIOVASCULAR: S1, S2 normal. ABDOMEN: Soft and nontender, no megaly or masses noted. EXTREMITIES: No clubbing or cyanosis noted. NEUROLOGICAL: Encephalopathic. Vent Setting Fraction of Inspired Oxygen pe: 28 Results/Medications Result Diagram: 04/30/19 0710 04/30/19 0710 Results 24 hrs Laboratory Tests Test 04/29/19 11:35 04/29/19 13:44 04/29/19 17:25 04/29/19 20:22 Bedside Glucose 228 H 243 H 184 220 Test 04/30/19 00:54 04/30/19 04:55 04/30/19 07:10 04/30/19 08:42 Bedside Glucose 211 202 167 White Blood Count 9.2 Red Blood Count 4.25 Hemoglobin 10.5 L Hematocrit 34.8 L Mean Corpuscular 81.9 L Volume Mean Corpuscular 24.7 L Hemoglobin Mean Corpuscular 30.2 L Hemoglobin Concent Red Cell 19.0 H Distribution Width Platelet Count 442 H Mean Platelet Volume 10.3 Immature 1.200 H Granulocytes % Neutrophils % 51.7 Lymphocytes % 35.7 Monocytes % 6.4 Eosinophils % 4.2 Basophils % 0.8 Nucleated Red Blood 0.0 Cells % Immature 0.110 H Granulocytes # Neutrophils # 4.8 Lymphocytes # 3.3 H Monocytes # 0.6 Eosinophils # 0.4 Basophils # 0.1 Nucleated Red Blood 0.0 Cells # Sodium Level 140 Potassium Level 4.0 Chloride Level 103 Carbon Dioxide Level 30 Anion Gap 7 Blood Urea Nitrogen 17 Creatinine 0.35 L Est Glomerular Filtrat Rate mL/min Glucose Level 168 Calcium Level 9.1 Medications Current Medications Ondansetron HCl (Zofran Inj) 4 mg Q6H PRN IV NAUSEA AND/OR VOMITING; Start 04/21/19 at 13:00 Levalbuterol (Xopenex Neb) 0.63 mg Q2H RESP THERAPY PRN HHN WHEEZING AND SOB; Start 04/21/19 at 14:00 Diagnostic Test (Pha) (Accu-Chek) 1 ea 02 XX ; Start 04/22/19 at 02:00 Miscellaneous Information 1 ea NOTE XX ; Start 04/21/19 at 14:00 Glucose (Glutose) 15 gm Q15M PRN PO DECREASED GLUCOSE; Start 04/21/19 at 14:00 Glucose (Glutose) 22.5 gm Q15M PRN PO DECREASED GLUCOSE; Start 04/21/19 at 14:00 Dextrose (D50w Syringe) 25 ml Q15M PRN IV DECREASED GLUCOSE; Start 04/21/19 at 14:00 Dextrose (D50w Syringe) 50 ml Q15M PRN IV DECREASED GLUCOSE; Start 04/21/19 at 14:00 Glucagon (Glucagen) 1 mg Q15M PRN IM DECREASED GLUCOSE; Start 04/21/19 at 14:00 Glucose (Glutose) 15 gm Q15M PRN BUCCAL DECREASED GLUCOSE; Start 04/21/19 at 14:00 Collagenase (Santyl) 1 applic DAILY TOP Last administered on 04/30/19at 08:44; Admin Dose 1 APPLIC; Start 04/21/19 at 16:00 Collagenase (Santyl) 1 applic PRN PRN TOP PER WND CARE ORDERS-SACRUM; Start 04/21/19 at 14:30 Multivitamins (Multivitamin) 30 ml DAILY GTB Last administered on 04/30/19at 08:44; Admin Dose 30 ML; Start 04/24/19 at 09:00 Nystatin (Nystatin Oint) 1 applic BID TOP Last administered on 04/30/19at 08:45; Admin Dose 1 APPLIC; Start 04/25/19 at 21:00 Lansoprazole (Prevacid) 30 mg BID@0600,1800 GTB Last administered on 04/30/19 04:57; Admin Dose 30 MG; Start 04/25/19 at 18:00 Clonidine (Catapres) 0.1 mg Q6H PRN GTB ELEVATED BLOOD PRESSURE Last administered on 04/29/19 11:38; Admin Dose 0.1 MG; Start 04/26/19 at 22:00 Hydralazine HCl (Apresoline) 10 mg Q4H PRN IV SBP>170 Last administered on 04/15 21:09; Admin Dose 10 MG; Start 04/28/19 at 14:30 Insulin Aspart (Novolog Insulin Pen) (Adult SC Insulin - Moder... Q4 SC Last administered on 04/30/19 09:04; Admin Dose 2 UNIT; Start 04/29/19 at 13:00 Insulin Glargine (Lantus) 11 units DAILY@0800 SC Last administered on 04/30/19at 09:00; Admin Dose 11 UNITS; Start 04/29/19 at 12:00 Atenolol (Tenormin) 50 mg BID PO Last administered on 04/30/19at 08:45; Admin Dose 50 MG; Start 04/29/19 at 21:00 Benazepril HCl (Lotensin) 10 mg DAILY GTB Last administered on 04/30/19at 08:45; Admin Dose 10 MG; Start 04/30/19 at 09:00 Levetiracetam (Keppra Liquid) 500 mg Q12 GTB ; Start 04/30/19 at 21:00 Assessment/Plan Hospital Course (Demo Recall) IMPRESSION: 1. Chronic respiratory failure, tracheostomy dependent. 2. Status post sepsis with sacral decubitus, infected. 3. Possible pneumonia. 4. Advance encephalopathy. 5. Anemia. 6. Hypertension. 7. Diabetes mellitus. 8. Seizure disorder. 9. Dysphagia. RECOMMENDATIONS: 1. Continue antibiotics. 2. Consultants noted. 3. Nutritional support. 4. Wound care. 5. Tracheostomy care. DC planning? COIN FERNANDEZ MD, [facility] Apr 30, 2019 11:11
--- NOTE | 2019-04-30 12:23 | CONS ---
Consult Date/Type/Reason Admit Date/Time Apr 21, 2019 at 10:34 Initial Consult Date Requesting Provider: NICOLE BUCHANAN MD Date/Time of Note DATE: 04/30/19 TIME: 12:21 Subjective NO acute events - pt comfortable now - in good fluid status - non-verbal to me - no focal ectopy on tele. ROS per nurse - pt non-verbal: No fever, no chills, no nausea, no vomiting, no diarrhea/constipation No recent weight changes No chest pain, no PND, no orthopnea - mild SOB - on tele now No dizziness, blurred vision No thirst, no heat or cold intolerance Objective Vitals Vital Signs Date Temp Pulse Resp B/P (MAP) Pulse Ox O2 O2 Flow FiO2 Time Delivery Rate 04/30/19 98.9 76 22 140/51 99 Trach 11:05 (80) Collar 04/30/19 5.0 28 09:31 Intake and Output 04/29/19 04/29/19 04/30/19 1515:00 23:00 07:00 IntakeIntake Total 1345 ml 970 ml 515 ml OutputOutput Total 1000 ml 500 ml BalanceBalance 1345 ml -30 ml 15 ml Exam General: WN/WD/NAD, AOx 0 HEENT: Unicetric/atraumatic/EOMI (does not follow commands) NECK: trach Lymph: no lymphadenopathy HEART: regular with no S3, II/ systolic murmur at apex LUNGS: Coarse sounds ABD: soft, NT, ND, +BS : Intact Neuro: non focal SKIN: chronic changes EXT: trace edema Results/Medications Result Diagram: 04/30/19 0710 04/30/19 0710 Results 24 hrs Laboratory Tests Test 04/29/19 13:44 04/29/19 17:25 04/29/19 20:22 04/30/19 00:54 Bedside Glucose 243 H 184 220 211 Test 04/30/19 04:55 04/30/19 07:10 04/30/19 08:42 Bedside Glucose 202 167 White Blood Count 9.2 Red Blood Count 4.25 Hemoglobin 10.5 L Hematocrit 34.8 L Mean Corpuscular 81.9 L Volume Mean Corpuscular 24.7 L Hemoglobin Mean Corpuscular 30.2 L Hemoglobin Concent Red Cell 19.0 H Distribution Width Platelet Count 442 H Mean Platelet Volume 10.3 Immature 1.200 H Granulocytes % Neutrophils % 51.7 Lymphocytes % 35.7 Monocytes % 6.4 Eosinophils % 4.2 Basophils % 0.8 Nucleated Red Blood 0.0 Cells % Immature 0.110 H Granulocytes # Neutrophils # 4.8 Lymphocytes # 3.3 H Monocytes # 0.6 Eosinophils # 0.4 Basophils # 0.1 Nucleated Red Blood 0.0 Cells # Sodium Level 140 Potassium Level 4.0 Chloride Level 103 Carbon Dioxide Level 30 Anion Gap 7 Blood Urea Nitrogen 17 Creatinine 0.35 L Est Glomerular Filtrat Rate mL/min Glucose Level 168 Calcium Level 9.1 Home Meds Reported Medications Ascorbic Acid (Vitamin C) 500 Mg Tab, 500 MG GTB BID, TAB 04/01/19 Cran/Vitc/Mannose/Inulin/Brom (Uti-Stat Liquid) 3,875 Mg/30 Ml Liquid, 30 ML GTB BID 04/01/19 Acetaminophen* (Tylenol*) 325 Mg Tablet, 650 MG GTB NEEDED PRN for TRACH TUBE CHANGE, TAB 04/01/19 Amino Acids/Protein Hydrolys (PRO-STAT LIQUID) 30 Ml Liquid.pkt, 30 ML GTB BID SUGAR FREE 04/01/19 Prednisone* (Prednisone*) 20 Mg Tab, 20 MG GTB DAILY, TAB 04/01/19 Potassium Chloride* (Potassium Chloride*) 20 Meq/15 Ml Liquid, 22.5 ML GTB VICKEY Y, ML 04/01/19 Hydrocodone/Acetaminophen ([place] 5-325 Tablet) 1 Each Tablet, 1 EACH GTB BID, TAB 04/01/19 Losartan Potassium* (Losartan Potassium*) 100 Mg Tablet, 100 MG GTB DAILY, TAB HOLD IF SBP<110 OR HR<60 04/01/19 Levetiracetam* (Keppra* (Ped)) 100 Mg/Ml Liq, 5 ML GTB BID for 30 Days, BOTTLE 04/01/19 Metformin Hcl* (Metformin Hcl*) 500 Mg Tablet, 500 MG GTB WITH BREAKFAST DINNE, #60 TAB 04/01/19 Ferrous Sulfate* (Ferrous Sulfate*) 220 Mg/5 Ml Solution, 7.5 ML GTB DAILY, ML 04/01/19 Cranberry Extract (Cranberry) 425 Mg Capsule, 425 MG GTB BID, CAP 04/01/19 Docusate Sodium* (Colace*) 100 Mg Capsule, 100 MG GTB QHS, #30 CAP 04/01/19 Clopidogrel Bisulfate* (Clopidogrel Bisulfate*) 75 Mg Tablet, 75 MG GTB DAILY, #30 TAB 04/01/19 Loratadine* (Loratadine*) 10 Mg Tablet, 10 MG GTB DAILY, #30 TAB 04/01/19 Chlorhexidine Gluconate (Peridex) 473 Ml Mouthwash, 15 ML MM Q12H, BOTTLE 04/01/19 Insulin Glargine,Hum.rec.anlog (Basaglar Kwikpen U-100) 100 Unit/1 Ml In suln.pen, 63 UNIT SC Q12H, EA 04/01/19 Amlodipine Besylate* (Amlodipine Besylate*) 10 Mg Tablet, 10 MG GTB DAILY, #30 TAB HOLD FOR SBP <110 OR HR<60 04/01/19 Albuterol Sulfate* (Albuterol Sulfate* Neb) 0.083%-3 Ml Neb, 2.5 MG NEB Q3H PRN for WHEEZING AND SOB, #30 VIAL 04/01/19 Medications Current Medications Ondansetron HCl (Zofran Inj) 4 mg Q6H PRN IV NAUSEA AND/OR VOMITING; Start 04/21/19 at 13:00 Levalbuterol (Xopenex Neb) 0.63 mg Q2H RESP THERAPY PRN HHN WHEEZING AND SOB; Start 04/21/19 at 14:00 Diagnostic Test (Pha) (Accu-Chek) 1 ea 02 XX ; Start 04/22/19 at 02:00 Miscellaneous Information 1 ea NOTE XX ; Start 04/21/19 at 14:00 Glucose (Glutose) 15 gm Q15M PRN PO DECREASED GLUCOSE; Start 04/21/19 at 14:00 Glucose (Glutose) 22.5 gm Q15M PRN PO DECREASED GLUCOSE; Start 04/21/19 at 14:00 Dextrose (D50w Syringe) 25 ml Q15M PRN IV DECREASED GLUCOSE; Start 04/21/19 at 14:00 Dextrose (D50w Syringe) 50 ml Q15M PRN IV DECREASED GLUCOSE; Start 04/21/19 at 14:00 Glucagon (Glucagen) 1 mg Q15M PRN IM DECREASED GLUCOSE; Start 04/21/19 at 14:00 Glucose (Glutose) 15 gm Q15M PRN BUCCAL DECREASED GLUCOSE; Start 04/21/19 at 14:00 Collagenase (Santyl) 1 applic DAILY TOP Last administered on 04/30/19 08:44; Admin Dose 1 APPLIC; Start 04/21/19 at 16:00 Collagenase (Santyl) 1 applic PRN PRN TOP PER WND CARE ORDERS-SACRUM; Start 04/21/19 at 14:30 Multivitamins (Multivitamin) 30 ml DAILY GTB Last administered on 04/30/19 08:44; Admin Dose 30 ML; Start 04/24/19 at 09:00 Nystatin (Nystatin Oint) 1 applic BID TOP Last administered on 04/30/19 08:45; Admin Dose 1 APPLIC; Start 04/25/19 at 21:00 Lansoprazole (Prevacid) 30 mg BID@0600,1800 GTB Last administered on 04/30/19 04:57; Admin Dose 30 MG; Start 04/25/19 at 18:00 Clonidine (Catapres) 0.1 mg Q6H PRN GTB ELEVATED BLOOD PRESSURE Last administered on 04/29/19at 11:38; Admin Dose 0.1 MG; Start 04/26/19 at 22:00 Hydralazine HCl (Apresoline) 10 mg Q4H PRN IV SBP>170 Last administered on 04/28/19at 21:09; Admin Dose 10 MG; Start 04/28/19 at 14:30 Insulin Aspart (Novolog Insulin Pen) (Adult SC Insulin - Moder... Q4 SC Last administered on 04/30/19 09:04; Admin Dose 2 UNIT; Start 04/29/19 at 13:00 Insulin Glargine (Lantus) 11 units DAILY@0800 SC Last administered on 04/30/19 09:00; Admin Dose 11 UNITS; Start 04/29/19 at 12:00 Atenolol (Tenormin) 50 mg BID PO Last administered on 04/30/19 08:45; Admin Dose 50 MG; Start 04/29/19 at 21:00 Benazepril HCl (Lotensin) 10 mg DAILY GTB Last administered on 04/30/19 08:45; Admin Dose 10 MG; Start 04/30/19 at 09:00 Levetiracetam (Keppra Liquid) 500 mg Q12 GTB ; Start 04/30/19 at 21:00 Assessment/Plan Hospital Course (Demo Recall) 1. CHF - diast HF - euvolemic by exam now. Con't to keep euvolemic. BP in good range - euvolemic byh exam. 2. Tracheobronchitis - BP better - Rx with anti-Bx. Better - con't resp Rx. Cont med rx. 2. Respiratory failure. Continue vent support and breathing treatment. Pulmonary to follow - out of ICU now - off vent, con't trach Rx. 4. Hypertension. Continue Norvasc and losartan. As needed 5. Diabetes. Continue Lantus and sliding scale insulin in addition to metformin. Insulin PRN - treated. 7. Seizure: Stable with current dose of Keppra. NO new episodes 6. Anemia, most likely anemia of chronic disease. GI follows - eval r/o bleed. 8. CAD - no CP now - no intervention planned. R/o [place]. 9. Low K + - replaced to 4.0 now/ CHEY PLATT MD Apr 30, 2019 12:23
--- NOTE | 2019-04-30 13:42 | CONS ---
Assessment/Plan Assessment/Plan Hospital Course (Demo Recall) No acute events Microbiology: Endotracheal aspirate growing staph aureus, urine culture grew yeast Indwelling's: trach, PEG Antimicrobials: none Physical examination: This is a chronically ill-appearing elderly woman who is noncommunicative in no distress. Head atraumatic normocephalic sclera nonicteric neck is supple chest rise symmetrical breath sounds diminished bases heart S1-S2 abdomen obese soft bowel sounds hypoactive extremities contractured without cyanosis skin patient has unstageable chronic wound on her sacrum sacrum and necrotic wounds on the feet Assessment: 1. SIRS 2. UTI vs colonized 3. Tracheobronchitis 4. Chronic respiratory failure and dysphagia 5. Multiple chronic wounds 6. History of CVA 7. Acute on chronic anemia 8. Diabetes 9. 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 Plan: Clinically unchanged, off abx, GT site clear Consultation Date/Type/Reason Admit Date/Time Apr 21, 2019 at 10:34 Initial Consult Date 04/22/19 Type of Consult id Requesting Provider: NICOLE BUCHANAN MD Date/Time of Note DATE: 04/30/19 TIME: 13:41 Exam/Review of Systems Exam Vitals Vital Signs Date Temp Pulse Resp B/P (MAP) Pulse Ox O2 O2 Flow FiO2 Time Delivery Rate 04/30/19 70 28 98 Aerosol 5.0 28 12:44 T Tube 04/30/19 98.9 140/51 11:05 (80) Intake and Output 04/29/19 04/29/19 04/30/19 1515:00 23:00 07:00 IntakeIntake Total 1345 ml 970 ml 515 ml OutputOutput Total 1000 ml 500 ml BalanceBalance 1345 ml -30 ml 15 ml Results Result Diagram: 04/30/19 0710 04/30/19 0710 Results 24hrs Laboratory Tests Test 04/29/19 13:44 04/29/19 17:25 04/29/19 20:22 04/30/19 00:54 Bedside Glucose 243 H 184 220 211 Test 04/30/19 04:55 04/30/19 07:10 04/30/19 08:42 04/30/19 12:59 Bedside Glucose 202 167 200 White Blood Count 9.2 Red Blood Count 4.25 Hemoglobin 10.5 L Hematocrit 34.8 L Mean Corpuscular 81.9 L Volume Mean Corpuscular 24.7 L Hemoglobin Mean Corpuscular 30.2 L Hemoglobin Concent Red Cell 19.0 H Distribution Width Platelet Count 442 H Mean Platelet Volume 10.3 Immature 1.200 H Granulocytes % Neutrophils % 51.7 Lymphocytes % 35.7 Monocytes % 6.4 Eosinophils % 4.2 Basophils % 0.8 Nucleated Red Blood 0.0 Cells % Immature 0.110 H Granulocytes # Neutrophils # 4.8 Lymphocytes # 3.3 H Monocytes # 0.6 Eosinophils # 0.4 Basophils # 0.1 Nucleated Red Blood 0.0 Cells # Sodium Level 140 Potassium Level 4.0 Chloride Level 103 Carbon Dioxide Level 30 Anion Gap 7 Blood Urea Nitrogen 17 Creatinine 0.35 L Est Glomerular Filtrat Rate mL/min Glucose Level 168 Calcium Level 9.1 Medications Medication Current Medications Ondansetron HCl (Zofran Inj) 4 mg Q6H PRN IV NAUSEA AND/OR VOMITING; Start 04/21/19 at 13:00 Levalbuterol (Xopenex Neb) 0.63 mg Q2H RESP THERAPY PRN HHN WHEEZING AND SOB; Start 04/21/19 at 14:00 Diagnostic Test (Pha) (Accu-Chek) 1 ea 02 XX ; Start 04/22/19 at 02:00 Miscellaneous Information 1 ea NOTE XX ; Start 04/21/19 at 14:00 Glucose (Glutose) 15 gm Q15M PRN PO DECREASED GLUCOSE; Start 04/21/19 at 14:00 Glucose (Glutose) 22.5 gm Q15M PRN PO DECREASED GLUCOSE; Start 04/21/19 at 14:00 Dextrose (D50w Syringe) 25 ml Q15M PRN IV DECREASED GLUCOSE; Start 04/21/19 at 14:00 Dextrose (D50w Syringe) 50 ml Q15M PRN IV DECREASED GLUCOSE; Start 04/21/19 at 14:00 Glucagon (Glucagen) 1 mg Q15M PRN IM DECREASED GLUCOSE; Start 04/21/19 at 14:00 Glucose (Glutose) 15 gm Q15M PRN BUCCAL DECREASED GLUCOSE; Start 04/21/19 at 14:00 Collagenase (Santyl) 1 applic DAILY TOP Last administered on 04/30/19at 08:44; Admin Dose 1 APPLIC; Start 04/21/19 at 16:00 Collagenase (Santyl) 1 applic PRN PRN TOP PER WND CARE ORDERS-SACRUM; Start 04/21/19 at 14:30 Multivitamins (Multivitamin) 30 ml DAILY GTB Last administered on 04/30/19 08:44; Admin Dose 30 ML; Start 04/24/19 at 09:00 Nystatin (Nystatin Oint) 1 applic BID TOP Last administered on 04/30/19 08:45; Admin Dose 1 APPLIC; Start 04/25/19 at 21:00 Lansoprazole (Prevacid) 30 mg BID@0600,1800 GTB Last administered on 04/30/19 04:57; Admin Dose 30 MG; Start 04/25/19 at 18:00 Clonidine (Catapres) 0.1 mg Q6H PRN GTB ELEVATED BLOOD PRESSURE Last administered on 04/29/19 11:38; Admin Dose 0.1 MG; Start 04/26/19 at 22:00 Hydralazine HCl (Apresoline) 10 mg Q4H PRN IV SBP>170 Last administered on 04/28/19at 21:09; Admin Dose 10 MG; Start 04/28/19 at 14:30 Insulin Aspart (Novolog Insulin Pen) (Adult SC Insulin - Moder... Q4 SC Last administered on 04/30/19 13:05; Admin Dose 4 UNIT; Start 04/29/19 at 13:00 Insulin Glargine (Lantus) 11 units DAILY@0800 SC Last administered on 04/30/19 09:00; Admin Dose 11 UNITS; Start 04/29/19 at 12:00 Atenolol (Tenormin) 50 mg BID PO Last administered on 04/30/19 08:45; Admin Dose 50 MG; Start 04/29/19 at 21:00 Benazepril HCl (Lotensin) 10 mg DAILY GTB Last administered on 04/30/19 08:45; Admin Dose 10 MG; Start 04/30/19 at 09:00 Levetiracetam (Keppra Liquid) 500 mg Q12 GTB ; Start 04/30/19 at 21:00 ANTHONY JOY NP Apr 30, 2019 13:42
[2019-04-30 15:01] VITALS: BP 139/62; RESP 22
--- NOTE | 2019-04-30 16:02 | PN ---
Date/Time of Note Date/Time of Note DATE: 04/30/19 TIME: 16:01 Assessment/Plan VTE Prophylaxis Risk score (from Ns)>0 risk: 10 SCD applied (from Ns): Yes Pharmacological prophylaxis: NA/contraindicated Pharm contraindication: anticoag not tolerated Lines/Catheters IV Catheter Type (from Nrsg): PICC Line Central line still needed: Yes Urinary Cath still in place: Yes Reason Cath still needed: urinary retention Assessment/Plan Hospital Course Patient was better blood sugar control to compare to yesterday however not at the goal will increase Lantus continue NovoLog every 4 hours as needed, patient tolerates feeding, discussed with RN. Assessment/Plan - GI bleed, status post EGD with notion of gastric ulcer at the G-tube site and esophagitis, continue PPI. Dr. Prieto is following in gastroenterology consultation. - Possible sepsis. Continue antibiotics per ID. Dr. Mcmullen is following in infection disease consultation. - Tracheobronchitis versus early pneumonia - Ventilator dependent respiratory failure. Dr. De La Torre is following in pulmonology consultation - Hypertension. Continue Norvasc and losartan. - Diabetes. Continue Lantus and sliding scale insulin in addition to metformin. - Seizure disorder, continue Keppra. - Anemia multifactorial chronic disease and possible acute blood loss. - Hx of CVA, continue Plavix. - Multiple pressure ulcers continue wound care per wound care consult, offloading, air mattress, optimize nutrition. Further recommendations based on clinical course. Plan of care discussed with Dr. Mera. Result Diagram: 04/30/19 0710 04/30/19 0710 Results 24hrs Laboratory Tests Test 04/29/19 17:25 04/29/19 20:22 04/30/19 00:54 04/30/19 04:55 Bedside Glucose 184 220 211 202 Test 04/30/19 07:10 04/30/19 08:42 04/30/19 12:59 White Blood Count 9.2 Red Blood Count 4.25 Hemoglobin 10.5 L Hematocrit 34.8 L Mean Corpuscular 81.9 L Volume Mean Corpuscular 24.7 L Hemoglobin Mean Corpuscular 30.2 L Hemoglobin Concent Red Cell 19.0 H Distribution Width Platelet Count 442 H Mean Platelet Volume 10.3 Immature 1.200 H Granulocytes % Neutrophils % 51.7 Lymphocytes % 35.7 Monocytes % 6.4 Eosinophils % 4.2 Basophils % 0.8 Nucleated Red Blood 0.0 Cells % Immature 0.110 H Granulocytes # Neutrophils # 4.8 Lymphocytes # 3.3 H Monocytes # 0.6 Eosinophils # 0.4 Basophils # 0.1 Nucleated Red Blood 0.0 Cells # Sodium Level 140 Potassium Level 4.0 Chloride Level 103 Carbon Dioxide Level 30 Anion Gap 7 Blood Urea Nitrogen 17 Creatinine 0.35 L Est Glomerular Filtrat Rate mL/min Glucose Level 168 Calcium Level 9.1 Bedside Glucose 167 200 Exam/Review of Systems Exam Vitals Vital Signs Date Temp Pulse Resp B/P (MAP) Pulse Ox O2 O2 Flow FiO2 Time Delivery Rate 04/30/19 98.7 22 139/62 98 Trach 15:01 (87) Collar 04/30/19 70 5.0 28 12:44 Intake and Output 04/29/19 04/29/19 04/30/19 1515:00 23:00 07:00 IntakeIntake Total 1345 ml 970 ml 515 ml OutputOutput Total 1000 ml 500 ml BalanceBalance 1345 ml -30 ml 15 ml Exam Constitutional: alert, non-verbal Respiratory: diminished breath sounds Cardiovascular: regular rate and rhythm Gastrointestinal: soft, non-tender, other (G-tube) Musculoskeletal: nl extremities to inspection Extremities: normal pulses Neurological: confused Skin: nl turgor, other (Multiple pressure ulcers) Results Results 24hrs Laboratory Tests Test 04/29/19 17:25 04/29/19 20:22 04/30/19 00:54 04/30/19 04:55 Bedside Glucose 184 220 211 202 Test 04/30/19 07:10 04/30/19 08:42 04/30/19 12:59 White Blood Count 9.2 Red Blood Count 4.25 Hemoglobin 10.5 L Hematocrit 34.8 L Mean Corpuscular 81.9 L Volume Mean Corpuscular 24.7 L Hemoglobin Mean Corpuscular 30.2 L Hemoglobin Concent Red Cell 19.0 H Distribution Width Platelet Count 442 H Mean Platelet Volume 10.3 Immature 1.200 H Granulocytes % Neutrophils % 51.7 Lymphocytes % 35.7 Monocytes % 6.4 Eosinophils % 4.2 Basophils % 0.8 Nucleated Red Blood 0.0 Cells % Immature 0.110 H Granulocytes # Neutrophils # 4.8 Lymphocytes # 3.3 H Monocytes # 0.6 Eosinophils # 0.4 Basophils # 0.1 Nucleated Red Blood 0.0 Cells # Sodium Level 140 Potassium Level 4.0 Chloride Level 103 Carbon Dioxide Level 30 Anion Gap 7 Blood Urea Nitrogen 17 Creatinine 0.35 L Est Glomerular Filtrat Rate mL/min Glucose Level 168 Calcium Level 9.1 Bedside Glucose 167 200 Medications Medication Current Medications Ondansetron HCl (Zofran Inj) 4 mg Q6H PRN IV NAUSEA AND/OR VOMITING; Start 04/21/19 at 13:00 Levalbuterol (Xopenex Neb) 0.63 mg Q2H RESP THERAPY PRN HHN WHEEZING AND SOB; Start 04/21/19 at 14:00 Diagnostic Test (Pha) (Accu-Chek) 1 ea 02 XX ; Start 04/22/19 at 02:00 Miscellaneous Information 1 ea NOTE XX ; Start 04/21/19 at 14:00 Glucose (Glutose) 15 gm Q15M PRN PO DECREASED GLUCOSE; Start 04/21/19 at 14:00 Glucose (Glutose) 22.5 gm Q15M PRN PO DECREASED GLUCOSE; Start 04/21/19 at 14:00 Dextrose (D50w Syringe) 25 ml Q15M PRN IV DECREASED GLUCOSE; Start 04/21/19 at 14:00 Dextrose (D50w Syringe) 50 ml Q15M PRN IV DECREASED GLUCOSE; Start 04/21/19 at 14:00 Glucagon (Glucagen) 1 mg Q15M PRN IM DECREASED GLUCOSE; Start 04/21/19 at 14:00 Glucose (Glutose) 15 gm Q15M PRN BUCCAL DECREASED GLUCOSE; Start 04/21/19 at 14:00 Collagenase (Santyl) 1 applic DAILY TOP Last administered on 04/30/19at 08:44; Admin Dose 1 APPLIC; Start 04/21/19 at 16:00 Collagenase (Santyl) 1 applic PRN PRN TOP PER WND CARE ORDERS-SACRUM; Start 04/21/19 at 14:30 Multivitamins (Multivitamin) 30 ml DAILY GTB Last administered on 04/30/19at 08:44; Admin Dose 30 ML; Start 04/24/19 at 09:00 Nystatin (Nystatin Oint) 1 applic BID TOP Last administered on 04/30/19at 08:45; Admin Dose 1 APPLIC; Start 04/25/19 at 21:00 Lansoprazole (Prevacid) 30 mg BID@0600,1800 GTB Last administered on 04/30/19at 04:57; Admin Dose 30 MG; Start 04/25/19 at 18:00 Clonidine (Catapres) 0.1 mg Q6H PRN GTB ELEVATED BLOOD PRESSURE Last administered on 04/29/19at 11:38; Admin Dose 0.1 MG; Start 04/26/19 at 22:00 Hydralazine HCl (Apresoline) 10 mg Q4H PRN IV SBP>170 Last administered on 04/28/19at 21:09; Admin Dose 10 MG; Start 04/28/19 at 14:30 Insulin Aspart (Novolog Insulin Pen) (Adult SC Insulin - Moder... Q4 SC Last administered on 04/30/19at 13:05; Admin Dose 4 UNIT; Start 04/29/19 at 13:00 Atenolol (Tenormin) 50 mg BID PO Last administered on 04/30/19at 08:45; Admin Dose 50 MG; Start 04/29/19 at 21:00 Benazepril HCl (Lotensin) 10 mg DAILY GTB Last administered on 04/30/19at 08:45; Admin Dose 10 MG; Start 04/30/19 at 09:00 Levetiracetam (Keppra Liquid) 500 mg Q12 GTB ; Start 04/30/19 at 21:00 Insulin Glargine (Lantus) 15 units DAILY@0800 SC ; Start 05/01/19 at 08:00 DWAYNE CALDERON Apr 30, 2019 16:02
[2019-04-30 19:42] VITALS: BP 167/70; PULSE 76; RESP 18
[2019-04-30] MEDS: LEVETIRACETAM (100 MG/ML) 5ML CUP GTB SCH (20:32)
[2019-04-30 23:55] VITALS: BP 164/65; PULSE 68; RESP 20
[2019-05-01] MEDS: INSULIN ASPART [NOVOLOG] 3 ML PEN SC SCH ×5 (01:19→18:08)
[2019-05-01] MEDS: ACCU-CHEK XX SCH (01:24)
[2019-05-01] MEDS: LANSOPRAZOLE 30 MG CAP GTB SCH ×2 (04:33→17:49)
[2019-05-01 05:56] VITALS: BP 158/78; PULSE 72; RESP 20
[2019-05-01 07:27] VITALS: BP 166/53; PULSE 72; RESP 20
[2019-05-01] MEDS ORDERED: INSULIN GLARGINE [LANTus] (100 UNITS/ML) SYG SC SCH (08:00)
[2019-05-01] MEDS: LEVETIRACETAM (100 MG/ML) 5ML CUP GTB SCH (08:58)
[2019-05-01] MEDS: COLLAGENASE 5 GM (UD JAR) TOP SCH (08:58)
[2019-05-01] MEDS: MULTIVITAMINS 30 ML CUP GTB SCH (08:58)
[2019-05-01] MEDS: NYSTATIN 15 GM OINT TOP SCH (08:59)
[2019-05-01] MEDS: ATENOLOL 50 MG TAB PO SCH (08:59)
[2019-05-01] MEDS: BENAZEPRIL 10 MG TAB GTB SCH (08:59)
--- NOTE | 2019-05-01 10:58 | CONS ---
Assessment/Plan Assessment/Plan Hospital Course (Demo Recall) No acute events looks comfortable, no fevers Microbiology: Endotracheal aspirate growing staph aureus, urine culture grew yeast Indwelling's: trach, PEG Antimicrobials: none Physical examination: This is a chronically ill-appearing elderly woman who is noncommunicative in no distress. Head atraumatic normocephalic sclera nonicteric neck is supple chest rise symmetrical breath sounds diminished bases heart S1-S2 abdomen obese soft bowel sounds hypoactive extremities contractured without cyanosis skin patient has unstageable chronic wound on her sacrum sacrum and necrotic wounds on the feet Assessment: 1. S/p PNA 2. S/p UTI 3. Dysphagia 4. Chronic respiratory failure and dysphagia 5. Multiple chronic wounds 6. History of CVA 7. Acute on chronic anemia 8. Diabetes 9. 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 Plan: Clinically unchanged, off abx Consultation Date/Type/Reason Admit Date/Time Apr 21, 2019 at 10:34 Initial Consult Date 04/22/19 Type of Consult id Requesting Provider: NICOLE BUCHANAN MD Date/Time of Note DATE: 05/01/19 TIME: 10:57 Exam/Review of Systems Exam Vitals Vital Signs Date Temp Pulse Resp B/P (MAP) Pulse Ox O2 O2 Flow FiO2 Time Delivery Rate 05/01/19 98.0 72 20 166/53 98 07:27 (90) 05/01/19 Trach 05:56 Collar 05/01/19 5.0 28 05:00 Intake and Output 04/30/19 04/30/19 05/01/19 1515:00 23:00 07:00 IntakeIntake Total 100 ml 890 ml 480 ml OutputOutput Total 1000 ml 900 ml BalanceBalance 100 ml -110 ml -420 ml Results Result Diagram: 04/30/19 0710 04/30/19 0710 Results 24hrs Laboratory Tests Test 04/30/19 12:59 04/30/19 17:20 04/30/19 20:30 05/01/19 01:14 Bedside Glucose 200 206 191 191 Test 05/01/19 04:33 05/01/19 08:58 Bedside Glucose 208 194 Medications Medication Current Medications Ondansetron HCl (Zofran Inj) 4 mg Q6H PRN IV NAUSEA AND/OR VOMITING; Start 04/21/19 at 13:00 Levalbuterol (Xopenex Neb) 0.63 mg Q2H RESP THERAPY PRN HHN WHEEZING AND SOB; Start 04/21/19 at 14:00 Diagnostic Test (Pha) (Accu-Chek) 1 ea 02 XX ; Start 04/22/19 at 02:00 Miscellaneous Information 1 ea NOTE XX ; Start 04/21/19 at 14:00 Glucose (Glutose) 15 gm Q15M PRN PO DECREASED GLUCOSE; Start 04/21/19 at 14:00 Glucose (Glutose) 22.5 gm Q15M PRN PO DECREASED GLUCOSE; Start 04/21/19 at 14:00 Dextrose (D50w Syringe) 25 ml Q15M PRN IV DECREASED GLUCOSE; Start 04/21/19 at 14:00 Dextrose (D50w Syringe) 50 ml Q15M PRN IV DECREASED GLUCOSE; Start 04/21/19 at 14:00 Glucagon (Glucagen) 1 mg Q15M PRN IM DECREASED GLUCOSE; Start 04/21/19 at 14:00 Glucose (Glutose) 15 gm Q15M PRN BUCCAL DECREASED GLUCOSE; Start 04/21/19 at 14:00 Collagenase (Santyl) 1 applic DAILY TOP Last administered on 05/01/19at 08:58; Admin Dose 1 APPLIC; Start 04/21/19 at 16:00 Collagenase (Santyl) 1 applic PRN PRN TOP PER WND CARE ORDERS-SACRUM; Start 04/21/19 at 14:30 Multivitamins (Multivitamin) 30 ml DAILY GTB Last administered on 05/01/19at 08:58; Admin Dose 30 ML; Start 04/24/19 at 09:00 Nystatin (Nystatin Oint) 1 applic BID TOP Last administered on 05/01/19at 08:59; Admin Dose 1 APPLIC; Start 04/25/19 at 21:00 Lansoprazole (Prevacid) 30 mg BID@0600,1800 GTB Last administered on 05/01/19at 04:33; Admin Dose 30 MG; Start 04/25/19 at 18:00 Clonidine (Catapres) 0.1 mg Q6H PRN GTB ELEVATED BLOOD PRESSURE Last administered on 04/29/19at 11:38; Admin Dose 0.1 MG; Start 04/26/19 at 22:00 Hydralazine HCl (Apresoline) 10 mg Q4H PRN IV SBP>170 Last administered on 04/28/19 21:09; Admin Dose 10 MG; Start 04/28/19 at 14:30 Insulin Aspart (Novolog Insulin Pen) (Adult SC Insulin - Moder... Q4 SC Last administered on 05/01/19 10:45; Admin Dose 4 UNIT; Start 04/29/19 at 13:00 Atenolol (Tenormin) 50 mg BID PO Last administered on 05/01/19 08:59; Admin Dose 50 MG; Start 04/29/19 at 21:00 Benazepril HCl (Lotensin) 10 mg DAILY GTB Last administered on 05/01/19 08:59; Admin Dose 10 MG; Start 04/30/19 at 09:00 Levetiracetam (Keppra Liquid) 500 mg Q12 GTB Last administered on 05/01/19 08:58; Admin Dose 500 MG; Start 04/30/19 at 21:00 Insulin Glargine (Lantus) 15 units DAILY@0800 SC Last administered on 05/01/19at 10:51; Admin Dose 15 UNITS; Start 05/01/19 at 08:00 ANTHONY JOY NP May 01, 2019 10:58
[2019-05-01 11:14] VITALS: BP 141/54; PULSE 73; RESP 20
--- NOTE | 2019-05-01 12:14 | CONS ---
Consult Date/Type/Reason Admit Date/Time Apr 21, 2019 at 10:34 Initial Consult Date 04/22/19 Type of Consult Pulmonary Requesting Provider: NICOLE BUCHANAN MD Date/Time of Note DATE: 05/01/19 TIME: 12:13 Subjective Patient remained stable this morning no respiratory distress Objective Vital Signs Date Temp Pulse Resp B/P (MAP) Pulse Ox O2 O2 Flow FiO2 Time Delivery Rate 05/01/19 98.0 73 20 141/54 100 11:14 (83) 05/01/19 5.0 08:00 05/01/19 Trach 05:56 Collar 05/01/19 28 05:00 Intake and Output 04/30/19 04/30/19 05/01/19 1515:00 23:00 07:00 IntakeIntake Total 100 ml 890 ml 480 ml OutputOutput Total 1000 ml 900 ml BalanceBalance 100 ml -110 ml -420 ml Exam PHYSICAL EXAMINATION: VITAL SIGNS: HEENT: Pupils are equal and react to light. NECK: Supple, no JVD noted. Tracheostomy in place. LUNGS: Scattered rhonchi bilaterally. CARDIOVASCULAR: S1, S2 normal. ABDOMEN: Soft and nontender, no megaly or masses noted. EXTREMITIES: No clubbing or cyanosis noted. NEUROLOGICAL: Encephalopathic. Vent Setting Fraction of Inspired Oxygen pe: 28 Results/Medications Result Diagram: 04/30/19 0710 04/30/19 0710 Results 24 hrs Laboratory Tests Test 04/30/19 12:59 04/30/19 17:20 04/30/19 20:30 05/01/19 01:14 Bedside Glucose 200 206 191 191 Test 05/01/19 04:33 05/01/19 08:58 Bedside Glucose 208 194 Medications Current Medications Ondansetron HCl (Zofran Inj) 4 mg Q6H PRN IV NAUSEA AND/OR VOMITING; Start 04/21/19 at 13:00 Levalbuterol (Xopenex Neb) 0.63 mg Q2H RESP THERAPY PRN HHN WHEEZING AND SOB; Start 04/21/19 at 14:00 Diagnostic Test (Pha) (Accu-Chek) 1 ea 02 XX ; Start 04/22/19 at 02:00 Miscellaneous Information 1 ea NOTE XX ; Start 04/21/19 at 14:00 Glucose (Glutose) 15 gm Q15M PRN PO DECREASED GLUCOSE; Start 04/21/19 at 14:00 Glucose (Glutose) 22.5 gm Q15M PRN PO DECREASED GLUCOSE; Start 04/21/19 at 14:00 Dextrose (D50w Syringe) 25 ml Q15M PRN IV DECREASED GLUCOSE; Start 04/21/19 at 14:00 Dextrose (D50w Syringe) 50 ml Q15M PRN IV DECREASED GLUCOSE; Start 04/21/19 at 14:00 Glucagon (Glucagen) 1 mg Q15M PRN IM DECREASED GLUCOSE; Start 04/21/19 at 14:00 Glucose (Glutose) 15 gm Q15M PRN BUCCAL DECREASED GLUCOSE; Start 04/21/19 at 14:00 Collagenase (Santyl) 1 applic DAILY TOP Last administered on 05/01/19at 08:58; Admin Dose 1 APPLIC; Start 04/21/19 at 16:00 Collagenase (Santyl) 1 applic PRN PRN TOP PER WND CARE ORDERS-SACRUM; Start 04/21/19 at 14:30 Multivitamins (Multivitamin) 30 ml DAILY GTB Last administered on 05/01/19at 08:58; Admin Dose 30 ML; Start 04/24/19 at 09:00 Nystatin (Nystatin Oint) 1 applic BID TOP Last administered on 05/01/19at 08:59; Admin Dose 1 APPLIC; Start 04/25/19 at 21:00 Lansoprazole (Prevacid) 30 mg BID@0600,1800 GTB Last administered on 05/01/19at 04:33; Admin Dose 30 MG; Start 04/25/19 at 18:00 Clonidine (Catapres) 0.1 mg Q6H PRN GTB ELEVATED BLOOD PRESSURE Last administered on 04/29/19at 11:38; Admin Dose 0.1 MG; Start 04/26/19 at 22:00 Hydralazine HCl (Apresoline) 10 mg Q4H PRN IV SBP>170 Last administered on 04/28at 21:09; Admin Dose 10 MG; Start 04/28/19 at 14:30 Insulin Aspart (Novolog Insulin Pen) (Adult SC Insulin - Moder... Q4 SC Last administered on 05/01/19at 10:45; Admin Dose 4 UNIT; Start 04/29/19 at 13:00 Atenolol (Tenormin) 50 mg BID PO Last administered on 05/01/19at 08:59; Admin Dose 50 MG; Start 04/29/19 at 21:00 Benazepril HCl (Lotensin) 10 mg DAILY GTB Last administered on 05/01/19at 08:59; Admin Dose 10 MG; Start 04/30/19 at 09:00 Levetiracetam (Keppra Liquid) 500 mg Q12 GTB Last administered on 05/01/19at 08:58; Admin Dose 500 MG; Start 04/30/19 at 21:00 Insulin Glargine (Lantus) 18 units DAILY@0800 SC ; Start 05/02/19 at 08:00 Assessment/Plan Hospital Course (Demo Recall) IMPRESSION: 1. Chronic respiratory failure, tracheostomy dependent. 2. Status post sepsis with sacral decubitus, infected. 3. Possible pneumonia. 4. Advance encephalopathy. 5. Anemia. 6. Hypertension. 7. Diabetes mellitus. 8. Seizure disorder. 9. Dysphagia. RECOMMENDATIONS: 1. Continue antibiotics. 2. Consultants noted. 3. Nutritional support. 4. Wound care. 5. Tracheostomy care. Okay to transfer to [facility] DC planning? CONI FERNANDEZ MD, [facility] May 01, 2019 12:14
--- NOTE | 2019-05-01 13:57 | CONS ---
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 Had recurrence overnight self limited 3.resp failure chronic s/p trach 4.DM 5.dysphagia s/p G tube 6.GIB 7. HTN-continues to be elevated and difficult to control 8. Encephalopathy Recc: -Now on tele -Contineu abx's and f/u cx data -Continue keppra -Continue BB at current dose -Increase ACEI to improve BP control -Follow volume status closely and spot dose lasix as necessary Consultation Date/Type/Reason Admit Date/Time Apr 21, 2019 at 10:34 Initial Consult Date 04/22/19 Type of Consult Cardiology Reason for Consultation SVT/HTN Requesting Provider: NICOLE BUCHANAN MD Date/Time of Note DATE: 05/01/19 TIME: 13:53 Exam/Review of Systems Vital Signs Vitals Vital Signs Date Temp Pulse Resp B/P (MAP) Pulse Ox O2 O2 Flow FiO2 Time Delivery Rate 05/01/19 98.0 73 20 141/54 100 11:14 (83) 05/01/19 5.0 08:00 05/01/19 Trach 05:56 Collar 05/01/19 28 05:00 Intake and Output 04/30/19 04/30/19 05/01/19 1515:00 23:00 07:00 IntakeIntake Total 100 ml 890 ml 480 ml OutputOutput Total 1000 ml 900 ml BalanceBalance 100 ml -110 ml -420 ml Exam Exam Review of Systems: CONSTITUTIONAL: No fevers, chills. PULMONARY: No sob CARDIOVASCULAR: No chest pain/palpitations GASTROINTESTINAL: No nausea/vomiting. GENITOURINARY: No hematuria/dysuria. MUSCULOSKELETAL: No myagias/arthalgias. PSYCHIATRIC: The patient denies depression. NEUROLOGIC: encephalopathy Constitutional: other (encephalopathic) Psych: no complaints Head: normocephalic ENMT: mucosa pink and moist Neck: supple, jvd (9 cm water) Respiratory: diminished breath sounds (at bases/B) Cardiovascular: regular rate and rhythm Gastrointestinal: soft, non-tender Musculoskeletal: muscle weakness (generalized) Extremities: edema (none) Neurological: unresponsive Labs Result Diagram: 04/30/19 0710 04/30/19 0710 Results 24hrs Laboratory Tests Test 04/30/19 17:20 04/30/19 20:30 05/01/19 01:14 05/01/19 04:33 Bedside Glucose 206 191 191 208 Test 05/01/19 08:58 05/01/19 12:28 Bedside Glucose 194 191 Medications Medications Current Medications Ondansetron HCl (Zofran Inj) 4 mg Q6H PRN IV NAUSEA AND/OR VOMITING; Start 04/21/19 at 13:00 Levalbuterol (Xopenex Neb) 0.63 mg Q2H RESP THERAPY PRN HHN WHEEZING AND SOB; Start 04/21/19 at 14:00 Diagnostic Test (Pha) (Accu-Chek) 1 ea 02 XX ; Start 04/22/19 at 02:00 Miscellaneous Information 1 ea NOTE XX ; Start 04/21/19 at 14:00 Glucose (Glutose) 15 gm Q15M PRN PO DECREASED GLUCOSE; Start 04/21/19 at 14:00 Glucose (Glutose) 22.5 gm Q15M PRN PO DECREASED GLUCOSE; Start 04/21/19 at 14:00 Dextrose (D50w Syringe) 25 ml Q15M PRN IV DECREASED GLUCOSE; Start 04/21/19 at 14:00 Dextrose (D50w Syringe) 50 ml Q15M PRN IV DECREASED GLUCOSE; Start 04/21/19 at 14:00 Glucagon (Glucagen) 1 mg Q15M PRN IM DECREASED GLUCOSE; Start 04/21/19 at 14:00 Glucose (Glutose) 15 gm Q15M PRN BUCCAL DECREASED GLUCOSE; Start 04/21/19 at 14:00 Collagenase (Santyl) 1 applic DAILY TOP Last administered on 05/01/19at 08:58; Admin Dose 1 APPLIC; Start 04/21/19 at 16:00 Collagenase (Santyl) 1 applic PRN PRN TOP PER WND CARE ORDERS-SACRUM; Start 04/21/19 at 14:30 Multivitamins (Multivitamin) 30 ml DAILY GTB Last administered on 05/01/19at 08:58; Admin Dose 30 ML; Start 04/24/19 at 09:00 Nystatin (Nystatin Oint) 1 applic BID TOP Last administered on 05/01/19at 08:59; Admin Dose 1 APPLIC; Start 04/25/19 at 21:00 Lansoprazole (Prevacid) 30 mg BID@0600,1800 GTB Last administered on 05/01/19 04:33; Admin Dose 30 MG; Start 04/25/19 at 18:00 Clonidine (Catapres) 0.1 mg Q6H PRN GTB ELEVATED BLOOD PRESSURE Last administered on 04/29/19 11:38; Admin Dose 0.1 MG; Start 04/26/19 at 22:00 Hydralazine HCl (Apresoline) 10 mg Q4H PRN IV SBP>170 Last administered on 04/28/19at 21:09; Admin Dose 10 MG; Start 04/28/19 at 14:30 Insulin Aspart (Novolog Insulin Pen) (Adult SC Insulin - Moder... Q4 SC Last administered on 05/01/19at 13:35; Admin Dose 4 UNIT; Start 04/29/19 at 13:00 Atenolol (Tenormin) 50 mg BID PO Last administered on 05/01/19 08:59; Admin Dose 50 MG; Start 04/29/19 at 21:00 Benazepril HCl (Lotensin) 10 mg DAILY GTB Last administered on 05/01/19 08:59; Admin Dose 10 MG; Start 04/30/19 at 09:00 Levetiracetam (Keppra Liquid) 500 mg Q12 GTB Last administered on 05/01/19 08:58; Admin Dose 500 MG; Start 04/30/19 at 21:00 Insulin Glargine (Lantus) 18 units DAILY@0800 SC ; Start 05/02/19 at 08:00 JOSE M IRWIN May 01, 2019 13:56
[2019-05-01 15:23] VITALS: BP 174/72; PULSE 78; RESP 20
[2019-05-01 18:25] VITALS: BP 153/64; PULSE 74; RESP 20
[2019-05-01] MEDS ORDERED: BENAZEPRIL 20 MG TAB GTB SCH (21:00)
[2019-05-01] MEDS ORDERED: TRIAMCINOLONE ACET 0.1% 15 GM CR TOP SCH (21:00)
--- NOTE | 2019-05-01 22:56 | DS ---
Date/Time of Note Date/Time of Note DATE: 05/01/19 TIME: 22:54 Discharge Summary Admission/Discharge Info Admit Date/Time Apr 21, 2019 at 10:34 Discharge Date/Time May 01, 2019 at 19:30 Patient Condition: Stable Hx of Present Illness The patient is 73-year-old female with history of stroke, respiratory failure with tracheostomy, dysphagia with G-tube, seizure disorder, hypertension, diabetes was transferred from [facility] for evaluation for possible GI bleed. Hospital Course - GI bleed, status post EGD with notion of gastric ulcer at the G-tube site and esophagitis, continue PPI. Dr. Prieto is following in gastroenterology consultation. - Possible sepsis. Continue antibiotics per ID. Dr. Mcmullen is following in infection disease consultation. - Tracheobronchitis versus early pneumonia - Ventilator dependent respiratory failure. Dr. De La Torre is following in pulmonology consultation - Hypertension. Continue Norvasc and losartan. - Diabetes. Continue Lantus and sliding scale insulin in addition to metformin. - Seizure disorder, continue Keppra. - Anemia multifactorial chronic disease and possible acute blood loss. - Hx of CVA, continue Plavix. - Multiple pressure ulcers continue wound care per wound care consult, offloading, air mattress, optimize nutrition. Plan of care discussed with Dr. eMra. Home Meds Reported Medications Ascorbic Acid (Vitamin C) 500 Mg Tab, 500 MG GTB BID, TAB 04/01/19 Cran/Vitc/Mannose/Inulin/Brom (Uti-Stat Liquid) 3,875 Mg/30 Ml Liquid, 30 ML GTB BID 04/01/19 Acetaminophen* (Tylenol*) 325 Mg Tablet, 650 MG GTB NEEDED PRN for TRACH TUBE CHANGE, TAB 04/01/19 Amino Acids/Protein Hydrolys (PRO-STAT LIQUID) 30 Ml Liquid.pkt, 30 ML GTB BID SUGAR FREE 04/01/19 Prednisone* (Prednisone*) 20 Mg Tab, 20 MG GTB DAILY, TAB 04/01/19 Potassium Chloride* (Potassium Chloride*) 20 Meq/15 Ml Liquid, 22.5 ML GTB DAILY, ML 04/01/19 Hydrocodone/Acetaminophen ([place] 5-325 Tablet) 1 Each Tablet, 1 EACH GTB BID, TAB 04/01/19 Losartan Potassium* (Losartan Potassium*) 100 Mg Tablet, 100 MG GTB DAILY, TAB HOLD IF SBP<110 OR HR<60 04/01/19 Levetiracetam* (Keppra* (Ped)) 100 Mg/Ml Liq, 5 ML GTB BID for 30 Days, BOTTLE 04/01/19 Metformin Hcl* (Metformin Hcl*) 500 Mg Tablet, 500 MG GTB WITH BREAKFAST DINNE, #60 TAB 04/01/19 Ferrous Sulfate* (Ferrous Sulfate*) 220 Mg/5 Ml Solution, 7.5 ML GTB DAILY, ML 04/01/19 Cranberry Extract (Cranberry) 425 Mg Capsule, 425 MG GTB BID, CAP 04/01/19 Docusate Sodium* (Colace*) 100 Mg Capsule, 100 MG GTB QHS, #30 CAP 04/01/19 Clopidogrel Bisulfate* (Clopidogrel Bisulfate*) 75 Mg Tablet, 75 MG GTB DAILY, #30 TAB 04/01/19 Loratadine* (Loratadine*) 10 Mg Tablet, 10 MG GTB DAILY, #30 TAB 04/01/19 Chlorhexidine Gluconate (Peridex) 473 Ml Mouthwash, 15 ML MM Q12H, BOTTLE 04/01/19 Insulin Glargine,Hum.rec.anlog (Basaglar Kwikpen U-100) 100 Unit/1 Ml Insuln.pen, 63 UNIT SC Q12H, EA 04/01/19 Amlodipine Besylate* (Amlodipine Besylate*) 10 Mg Tablet, 10 MG GTB DAILY, #30 TAB HOLD FOR SBP <110 OR HR<60 04/01/19 Albuterol Sulfate* (Albuterol Sulfate* Neb) 0.083%-3 Ml Neb, 2.5 MG NEB Q3H PRN for WHEEZING AND SOB, #30 VIAL 04/01/19 Primary Care Provider Chalino Mera MD Time spent on discharge: > 30 minutes Pending Labs Laboratory Tests Test 05/01/19 01:14 05/01/19 04:33 05/01/19 08:58 05/01/19 12:28 Bedside 191 208 194 191 Glucose mg/dL (70-220) mg/dL (70-220) mg/dL (70-220) mg/dL (70-220) Test 05/01/19 17:46 Bedside 216 Glucose mg/dL (70-220) DWAYNE CALDERON May 01, 2019 22:56
[2019-05-02] MEDS ORDERED: INSULIN GLARGINE [LANTus] (100 UNITS/ML) SYG SC SCH (08:00)
== END 2019-05-01 19:30 | DRG 871 ==
LOC: ICU 10:34 → TEL 04-23 02:32
PROVIDERS: ADMIT Internal Medicine; ATTEND Internal Medicine
PROC: 30233N1 Transfusion of Nonautologous Red Blood Cells into Peripheral Vein, Percutaneous Approach (ICD-10-PCS; 2019-04-25)
PROC: 0DJ08ZZ Inspection of Upper Intestinal Tract, Via Natural or Artificial Opening Endoscopic (ICD-10-PCS; principal; 2019-04-25 17:00)
DX: A41.9 Sepsis, unspecified organism (principal); L89.154 Pressure ulcer of sacral region, stage 4; I50.33 Acute on chronic diastolic (congestive) heart failure; J18.9 Pneumonia, unspecified organism; K25.4 Chronic or unspecified gastric ulcer with hemorrhage; J96.10 Chronic respiratory failure, unspecified whether with hypoxia or hypercapnia; D62 Acute posthemorrhagic anemia; G93.49 Other encephalopathy; I47.1 Supraventricular tachycardia; K94.22 Gastrostomy infection; L03.311 Cellulitis of abdominal wall; B37.49 Other urogenital candidiasis; D63.8 Anemia in other chronic diseases classified elsewhere; E11.9 Type 2 diabetes mellitus without complications; E87.6 Hypokalemia; F03.90 Unspecified dementia, unspecified severity, without behavioral disturbance, psychotic disturbance, mood disturbance, and anxiety; G40.909 Epilepsy, unspecified, not intractable, without status epilepticus; I11.0 Hypertensive heart disease with heart failure; I25.10 Atherosclerotic heart disease of native coronary artery without angina pectoris; J40 Bronchitis, not specified as acute or chronic; K94.21 Gastrostomy hemorrhage; K20.8 Other esophagitis; R13.10 Dysphagia, unspecified; Z86.73 Personal history of transient ischemic attack (TIA), and cerebral infarction without residual deficits; Z79.4 Long term (current) use of insulin; Z79.52 Long term (current) use of systemic steroids
CPT/HCPCS: 36430; 80048; 80202; 82962; 83605; 85025; 85049; 85610; 85670; 85730; 86850; 86900; 86901; 86920; 87070; 87081; 87086; 89220; 93005; C9113; J0360; J0692; J1450; J1815; J1953; J2001; J2185; J3370; J3480; J7030; J7042; J7050; P9016